=== PATIENT | male | born 1965 | race African-American/Black ===

== ENCOUNTER 2022-04-12 14:44 | Inpatient (IN) | payer MEDICAID, SELFPAY ==
[2022-04-12] VITALS (11 sets, daily range): BP systolic 135–159; BP diastolic 71–96; PULSE 91–101; RESP 15–22; TEMP 37; O2SAT 96–100; BMI 28.1
--- NOTE | 2022-04-12 14:45 | W.ED.EXTPRO ---
HPI - Extremity Problem General: Chief complaint: General Medical Stated complaint: RIGHT FOOT PAIN Time Seen by Provider: 04/12/22 14:45 History of Present Illness: Mr. Olivo is a 56-year-old gentleman with history of hypertension, possible diabetes not on any medications presenting to the emergency department due to bilateral lower extremity pain. Reports a longstanding history of lower extremity pain after leg fracture however this has been significantly worsening over the past 2 weeks. Symptoms are now severe and stabbing/aching in quality. Worse with ambulation and he has essentially been unable to ambulate. He notes increased thirst and increased hunger as well as increased urination. No other specific changes in health, exacerbating, or alleviating factors identified. Onset (ago): week(s) Location: left, right and lower extremity Severity scale (1-10): 10 Quality: stabbing and aching Radiation: proximal Relieving factors: nothing Exacerbating factors: weight bearing, walking and palpation Associated symptoms: Reports arthralgias and myalgias Review of Systems General: Reports: 10 or more systems reviewed and unremarkable except in HPI and below PFSH ED PFSH: Medical History Diabetes HTN (hypertension) Methamphetamine use Open tibial fracture Smoking Surgical History History of surgery on lower extremity Family History Other Crohn's disease Diabetes Social History Smoking and tobacco status: current every day smoker cigarettes Alcohol intake: current Alcohol intake frequency: holidays/special occasions only Lives independently: Yes Household members: none Marital status: 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 Physical Exam Const: COMMON NORMALS: alert GENERAL APPEARANCE: cooperative, well developed and ill appearing (Somewhat) HENMT: COMMON NORMALS: normocephalic and atraumatic HEAD & SCALP: normocephalic and atraumatic Eye: COMMON NORMALS: conjunctivae normal CONJUNCTIVA: Yes conjunctivae normal SCLERA: sclerae normal Neck/C-Spine: COMMON NORMALS: supple GENERAL: Yes trachea midline Resp: COMMON NORMALS: clear to auscultation bilaterally EFFORT & INSPECTION: Yes able to speak in complete sentences AUSCULTATION: clear to auscultation bilaterally Cardio: COMMON NORMALS: regular rate and regular rhythm RATE: regular rate RHYTHM: regular rhythm GI: COMMON NORMALS: Soft to palpation PALPATION: Yes Soft to palpation and No Tenderness to palpation present (GI) Extremity: NARRATIVE EXTREMITY EXAM: Significant tenderness to palpation of bilateral feet GENERAL: Yes normal exam except as noted and No edema Neuro: COMMON NORMALS: moves all extremities SENSORIUM/ORIENTATION: Yes alert and No Orientation impaired Psych: COMMON NORMALS: mental status grossly normal and Normal thought process present THOUGHT PROCESS: Normal thought process present Skin: NARRATIVE SKIN EXAM: Erythema and rash bilateral lower extremities worse on left. No evidence blistering or vascular lesions. Course Vital Signs: Vital signs: Vital Signs Temperature 98.2 F 04/14/22 13:49 Pulse Rate 85 04/14/22 13:49 Respiratory Rate 17 04/14/22 13:49 Blood Pressure 132/73 04/14/22 13:49 Pulse Oximetry 95 04/14/22 13:49 Oxygen Delivery Me thod 04/14/22 04:00 MDM - Extremity (Nontraumatic) Medical Decision Making 56-year-old gentleman presenting to the emergency department due to bilateral foot pain. There is evidence of cellulitis on exam. Patient himself is a somewhat poor historian. Labs notable for leukocytosis, normal hemoglobin. Metabolic panel with some evidence of dehydration and hyperglycemia evidence of DKA. Transaminitis of unclear etiology. Bilateral lower extremity arterial studies negative for significant stenosis. X-rays negative for acute fracture. During ED course patient treated with analgesia, fluids, broad-spectrum antibiotics, potassium replenishment Likely etiology of patient symptoms is soft tissue infection requiring inpatient management. The results of ED evaluation were discussed with the patient including plan for admission due to requirement for level of care not available if discharged to prevent significant worsening/deterioration. Patient agreeable with plan. Discussed with hospitalist service who was agreeable to admit patient. Medical Records I reviewed the patient's medical records. Lab Data I reviewed the patient's lab results. 04/14/22 04:20 04/14/22 04:20 Radiology Impressions Duplex Scan Lower Extremity Artery 04/12/22 15:26 IMPRESSION: No stenosis or occlusion. Tibia/Fibula X-Ray 04/12/22 17:42 IMPRESSION: No acute findings. Foot MRI 04/13/22 09:00 IMPRESSION: No acute osteomyelitis or soft tissue abscess. Somewhat limited exam as described. Lower Extremity CT 04/13/22 13:35 IMPRESSION: 1. Prepatellar soft tissue edema/haziness and a tiny discrete superficial soft tissue fluid collection/possible abscess at the anterolateral proximal tibial region as described. No other obvious soft tissue abscess or soft tissue gas. 2. Tibial IM arturo with artifacts partially obscuring assessment. There is minimal uniform lucency around the uncemented hardware which may be within normal limits however please see discussion above. No other obvious acute osseous findings or CT evidence of acute osteomyelitis. 3. Small knee joint effusion. Foot X-Ray 04/14/22 07:52 IMPRESSION: No acute abnormality. Laboratory Results WBC 19.9 10^3/uL (4.0-10.0) H 04/12/22 14:23 RBC 4.48 10^6/uL (4.1-5.3) 04/12/22 14:23 Hgb 14.1 g/dL (11.7-16.6) 04/12/22 14:23 Hct 39.9 % (42.0-52.0) L 04/12/22 14:23 MCV 89.1 fl (80-94) 04/12/22 14:23 MCH 31.5 pg (28.0-34.0) 04/12/22 14:23 MCHC 35.3 g/dL (30.0-36.0) 04/12/22 14:23 RDW 11.2 % (12.1-15.1) L 04/12/22 14:23 Plt Count 267 10^3/cmm (130-400) 04/12/22 14:23 MPV 12.0 fL (7.4-10.4) H 04/12/22 14:23 Neut % (Auto) 78.3 % 04/12/22 14:23 Lymph % (Auto) 12.3 % 04/12/22 14:23 Jennings % (Auto) 7.8 % 04/12/22 14:23 Eos % (Auto) 0.1 % 04/12/22 14:23 Baso % (Auto) 0.2 % 04/12/22 14:23 Neut # (Auto) 15.56 10^3/uL (1.8-7.7) H 04/12/22 14:23 Lymph # (Auto) 2.5 10^3/uL (0.8-4.8) 04/12/22 14:23 Jennings # (Auto) 1.6 10^3/uL (0.2-0.9) H 04/12/22 14:23 Eos # (Auto) 0.0 10^3/uL (0.0-0.8) 04/12/22 14:23 Baso # (Auto) 0.0 10^3/uL (0.0-0.1) 04/12/22 14:23 Nucleated RBC % (auto) 0 % 04/12/22 14:23 Nucleated RBCs # 0.0 /100WBC 04/12/22 14:23 Specimen Type Arterial 04/12/22 15:12 Sample Site Radial, left 04/12/22 15:12 ABG pH 7.50 (7.35-7.45) H 04/12/22 15:12 ABG pCO2 39.6 mmHg (35-45) 04/12/22 15:12 ABG pO2 63.4 mmHg (80.0-100.0) L 04/12/22 15:12 ABG HCO3 30.7 mmol/L (22-26) H 04/12/22 15:12 ABG O2 Saturation 94.2 04/12/22 15:12 ABG Base Excess 6.9 mmol/L (-2.0-2.0) H 04/12/22 15:12 Frandy Test Pos 04/12/22 15:12 A-a O2 Gradient 4.9 mmHg (5-10) L 04/12/22 15:12 Hematocrit 42.5 % (42-52) 04/12/22 15:12 Hgb O2 Saturation 92.0 % (95-100) L 04/12/22 15:12 Carboxyhemoglobin 1.8 %THgb (0.4-20.1) 04/12/22 15:12 Methemoglobin 0.4 % (0.4-1.5) 04/12/22 15:12 Total Hemoglobin 13.9 g/dL (14-18) L 04/12/22 15:12 Sodium 132.0 mmol/L (131-143) 04/12/22 15:12 Potassium 3.1 mmol/L (3.5-5.0) L 04/12/22 15:12 Glucose 309.0 mg/dL (70-115) H 04/12/22 15:12 Ionized Calcium 1.1 mmol/L (1.1-1.4) 04/12/22 15:12 O2 Delivery Device Room air 04/12/22 15:12 FiO2 21.0 % 04/12/22 15:12 Tripe Cooker ID Sunny 04/12/22 15:12 Sodium 130 mmol/L (136-145) L 04/12/22 14:23 Potassium 3.3 mmol/L (3.5-5.1) L 04/12/22 14:23 Chloride 91 mmol/L (98-107) L 04/12/22 14:23 Carbon Dioxide 29 mmol/L (22-29) 04/12/22 14:23 Anion Gap 13.3 (5-19) 04/12/22 14:23 BUN 11 mg/dL (6-20) 04/12/22 14:23 Creatinine 0.7 mg/dL (0.7-1.2) 04/12/22 14:23 GFR Calculation 140.2 mL/min (90-130) H 04/12/22 14:23 Glucose 331 mg/dL (65-115) H 04/12/22 14:23 POC Glucose > 600 mg/dL (70-110) H* 04/12/22 15:02 Calculated Osmolality 282 mOsm/kg (285-295) L 04/12/22 14:23 Lactate 1.2 mmol/L (0.5-2.2) 04/12/22 15:08 Calcium 8.8 mg/dL (8.5-10.5) 04/12/22 14:23 Phosphorus 2.4 mg/dL (2.5-4.5) L 04/12/22 14:25 Magnesium 1.8 mg/dL (1.7-2.3) 04/12/22 14:25 Total Bilirubin 0.5 mg/dL (0.15-1.2) 04/12/22 14:23 AST 59 U/L (0-40) H 04/12/22 14:23 ALT 44 U/L (0-41) H 04/12/22 14:23 Alkaline Phosphatase 178 U/L (40-130) H 04/12/22 14:23 Total Protein 7.8 g/dL (6.6-8.7) 04/12/22 14:23 Albumin 2.9 g/dL (3.5-5.2) L 04/12/22 14:23 Globulin 4.9 g/dL (1.3-4.6) H 04/12/22 14:23 Serum Ketones Negative (Negative) 04/12/22 14:23 Discharge Plan Discharge Patient Disposition: Placed in Observation Admit Provider: Juan M Muñoz Clinical Impression: Diabetic foot infection, Hyperglycemia, Electrolyte disturbance, Bilateral foot pain Coding Level of Care Code ED Wet Process [place] for Yannick Duenas
[2022-04-12 15:09] LABS: Glucose Point of Care > 600 mg/dL (70-110)
[2022-04-12] MEDS: morphine 4 mg/mL SDV 1 mL IVP (15:10)
[2022-04-12 15:13] LABS: Ketone (Acetest) Serum Negative (Negative)
[2022-04-12 15:24] LABS: Alanine Aminotransferase 44 U/L (0-41); Albumin Level 2.9 g/dL (3.5-5.2); Alkaline Phosphatase 178 U/L (40-130); Anion Gap 13.3 (5-19); Aspartate Amino Transferase 59 U/L (0-40); Basophils % 0.2 %; Blood Urea Nitrogen 11 mg/dL (6-20); Calcium 8.8 mg/dL (8.5-10.5); Carbon Dioxide 29 mmol/L (22-29); Chloride 91 mmol/L (98-107); Eosinophils % 0.1 %; Globulin 4.9 g/dL (1.3-4.6); Glomerular Filtration Rate 140.2 mL/min (90-130); Glucose 331 mg/dL (65-115); Hematocrit 39.9 % (42.0-52.0); Hemoglobin 14.1 g/dL (11.7-16.6); Lymphocytes # 2.5 10^3/uL (0.8-4.8); Lymphocytes % 12.3 %; Mean Corpuscular HGB Conc 35.3 g/dL (30.0-36.0); Mean Corpuscular Hemoglobin 31.5 pg (28.0-34.0); Mean Corpuscular Volume 89.1 fl (80-94); Monocytes # 1.6 10^3/uL (0.2-0.9); Monocytes % 7.8 %; Neutrophils # 15.56 10^3/uL (1.8-7.7); Neutrophils % 78.3 %; Nucleated Red Blood Cells % 0 %; Osmolality Calculated 282 mOsm/kg (285-295); Platelet Count 267 10^3/cmm (130-400); Potassium 3.3 mmol/L (3.5-5.1); Red Blood Count 4.48 10^6/uL (4.1-5.3); Red Cell Distribution Width 11.2 % (12.1-15.1); Sodium 130 mmol/L (136-145); Total Bilirubin 0.5 mg/dL (0.15-1.2); Total Protein 7.8 g/dL (6.6-8.7); White Blood Count 19.9 10^3/uL (4.0-10.0)
[2022-04-12 15:26] LABS: ABG PCO2 39.6 mmHg (35-45); Alveolar-Arterial Oxygen Gradi 4.9 mmHg (5-10); Arterial Blood Gas Hematocrit 42.5 % (42-52); Base Excess ABG 6.9 mmol/L (-2.0-2.0); Blood Gas Allen Test Pos; Blood Gas Operator Identificat MONRO; Blood Gas Sample Site Radial, left; Blood Gas Sample Type Arterial; Carboxyhemoglobin 1.8 %THgb (0.4-20.1); HCO3 ABG 30.7 mmol/L (22-26); Ionized Calcium Level - ABG 1.1 mmol/L (1.1-1.4); Methemoglobin 0.4 % (0.4-1.5); Oxygen Device ROOM AIR; Oxygen Saturation ABG 94.2; PO2 ABG 63.4 mmHg (80.0-100.0); Potassium Level - ABG 3.1 mmol/L (3.5-5.0); Total Hemoglobin 13.9 g/dL (14-18)
--- NOTE | 2022-04-12 15:26 | USR_ITS ---
PROCEDURE INFORMATION: Exam: US Duplex Lower Extremity Arteries Exam date and time: 04/12/2022 3:41 PM Age: 56 years old Clinical indication: Pain; Leg, lower; Bilateral; Additional info: Bilat leg pain, unable to walk TECHNIQUE: Imaging protocol: Real-time ultrasound scan of the arteries of the bilateral lower extremities with 2-D chinchilla scale, color Doppler flow and spectral waveform analysis. Images documented and saved. COMPARISON: OT Tibia and Fibula LEFT [id number] 10/29/2018 8:48 AM FINDINGS: Right common femoral artery: No occlusion or significant stenosis. Normal waveform. Right superficial femoral artery: No occlusion or significant stenosis. Normal waveform. Right popliteal artery: No occlusion or significant stenosis. Normal waveform. Right calf/foot arteries: No occlusion or significant stenosis in the visualized arteries. Monophasic flow. Dorsalis pedis artery is patent. Left common femoral artery: No occlusion or significant stenosis. Normal waveform. Left superficial femoral artery: No occlusion or significant stenosis. Normal waveform. Left popliteal artery: No occlusion or significant stenosis. Normal waveform. Left calf/foot arteries: No occlusion or significant stenosis in the visualized arteries. Monophasic flow. Dorsalis pedis artery is patent. US/[place] [id number] IMPRESSION: No stenosis or occlusion.
[2022-04-12 15:27] LABS: Magnesium 1.8 mg/dL (1.7-2.3); Phosphorus 2.4 mg/dL (2.5-4.5)
[2022-04-12 15:33] LABS: Lactate (Lactic Acid level) 1.2 mmol/L (0.5-2.2)
--- NOTE | 2022-04-12 16:43 | XRR_ITS ---
PROCEDURE INFORMATION: Exam: XR Left Foot Exam date and time: 04/12/2022 5:07 PM Age: 56 years old Clinical indication: Pain; Foot; Bilateral; Additional info: Foot pain TECHNIQUE: Imaging protocol: Radiologic exam of the Left foot. Views: 3 or more views. COMPARISON: CR XR tibia fibula LT 2V [id number] 10/29/2018 1:27 AM FINDINGS: Bones/joints: Osseous structures are intact. Negative for fracture. Joint spaces are preserved. Soft tissues: Normal. XR/XR foot LT min 3V* [id number] IMPRESSION: No acute findings.
--- NOTE | 2022-04-12 16:43 | XRR_ITS ---
PROCEDURE INFORMATION: Exam: XR Right Foot Exam date and time: 04/12/2022 5:03 PM Age: 56 years old Clinical indication: Pain; Foot; Bilateral; Additional info: Foot pain TECHNIQUE: Imaging protocol: Radiologic exam of the Right foot. Views: 3 or more views. COMPARISON: [place] [id number] 04/12/2022 3:41 PM FINDINGS: Bones/joints: Osseous structures are intact. Negative for fracture. Joint spaces are preserved. Soft tissues: A few punctate and linear radiopaque foreign bodies measuring between 1 and 2 mm in size are seen the base of the great toe. XR/XR foot RT min 3V* [id number] IMPRESSION: 1. No acute osseous abnormalities. 2. A few punctate and linear radiopaque foreign bodies measuring between 1 and 2 mm in size are seen at the base of the great toe.
[2022-04-12] MEDS: sodium chloride 0.9% 1,000 ML 999 ML IV (16:48)
[2022-04-12] MEDS: piperacillin-tazobactam 4.5 GM in sodium chloride 0.9% (plus) 50 ML IV (16:48)
[2022-04-12] MEDS: potassium chloride ER 20 mEq Tablet 40 MEQ PO (16:49)
--- NOTE | 2022-04-12 17:42 | XRR_ITS ---
PROCEDURE INFORMATION: Exam: XR Left Tibia and Fibula Exam date and time: 04/12/2022 5:50 PM Age: 56 years old Clinical indication: Other: Wounds; Prior surgery; Additional info: HX surgery, wounds TECHNIQUE: Imaging protocol: Radiologic exam of the Left tibia and fibula. Views: 2 views. COMPARISON: CR XR tibia fibula LT 2V [id number] 10/29/2018 1:27 AM FINDINGS: Bones/joints: Intact fixation ORIF hardware throughout the tibia. Osseous structures are intact. Sequela of prior callused mid tibial fracture. No acute fracture or irregular osseous erosions. Soft tissues: Normal. XR/XR tibia fibula LT 2V [id number] IMPRESSION: No acute findings.
[2022-04-12 18:09] LABS: Glucose Point of Care 358 mg/dL (70-110)
--- NOTE | 2022-04-12 18:09 | P.HP_ITS ---
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 He has history of fracture of the left tibia and ORIF with a arturo. Subsequently was bit on [place] property by a copperhead snake, did not seek medical attention. After that the wound did not heal and has been persistently draining now for over a year. In the ER he is also found to be hyperglycemic. He has history of diabetes. He does not take any medications. He states he does not have a family doctor. He states that he loves sweets. Brother states that he frequently walks barefoot outside. Review of Systems Const: Denies: fever(s), chills, body aches or malaise Eyes: Denies: change in vision, eye discomfort or eye redness ENMT: Denies: throat pain, oral sores or ear or mastoid pain Card: Denies: chest pain, edema, pre-syncope or dyspnea on exertion Resp: Denies: dyspnea, productive cough, change in phlegm color or hemoptysis GI: Denies: abdominal pain, nausea, vomiting, diarrhea, constipation, hematochezia or melena : Denies: flank pain, difficulty urinating, urinary frequency or hematuria Musc: Reports: extremity pain; Denies: back pain, joint swelling or joint redness Skin/Breast: Reports: erythema, skin tenderness and non-healing lesions Neuro: Denies: headache(s), numbness in extremities, weakness in extremities, dizziness, confusion or seizure-like activity Endo: Denies: polyuria or polydipsia Boy/Lymph: Denies: easy bleeding or tender lymph nodes All/Imm: Denies: urticaria or tongue swelling Medications/Allergies Allergies Allergy/AdvReac Type Severity Reaction Status Date / Time No Known Allergies Allergy Verified 04/12/22 15:11 PFSH Acute PFSH: Medical History Diabetes HTN (hypertension) Methamphetamine use Open tibial fracture Smoking Surgical History History of surgery on lower extremity Family History Other Crohn's disease Diabetes Social History Smoking and tobacco status: current every day smoker cigarettes Number of ci garettes per day: 1-5 Alcohol intake: current Alcohol intake frequency: holidays/special occasions only Substance/Drug Use: current Substance/Drug use type: Marijuana and Methamphetamine Lives independently: Yes Household members: none Marital status: 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 Const: COMMON NORMALS: patient oriented x3 and alert GENERAL APPEARANCE: cooperative and disheveled; not comfortable ORIENTATION/CONSCIOUSNESS: Yes awake HENMT: COMMON NORMALS: oropharynx normal Neck/C-Spine: COMMON NORMALS: no JVD Resp: COMMON NORMALS: normal respiratory effort and clear to auscultation bilaterally AUSCULTATION: clear to auscultation bilaterally Cardio: COMMON NORMALS: no JVD, regular rhythm, S1 normal heart sound present, S2 normal heart sound present and No murmurs present (Cardio) RHYTHM: regular rhythm HEART SOUNDS: S1 normal heart sound present and S2 normal heart sound present GI: COMMON NORMALS: Normal to inspection, nondistended, normoactive bowel sounds present, Soft to palpation and non-tender PALPATION: Yes Soft to palpation Extremity: COMMON NORMALS: no joint enlargement OTHER: Erythema, tenderness to palpation dorsal right foot, no wounds or ulceration. Neuro: COMMON NORMALS: patient oriented x3 and moves all extremities SENSORIUM/ORIENTATION: Yes alert Skin: GENERAL SKIN EXAM: erythema (Dorsal right foot) WOUNDS: Yes wounds noted (Ulceration, surrounding induration proximal and anteromedial left tibia ) drainage purulent Sepsis: Is patient septic: Yes Focused sepsis exam performed: Yes Data 04/12/22 14:23 04/12/22 14:23 Micro: Microbiology 04/12/22 15:04 Blood Culture - Preliminary Blood SPECIMEN COLLECTED 04/12/22 15:08 Blood Culture - Preliminary Blood SPECIMEN COLLECTED A&P Assessment and plan (1) Sepsis: With leukocytosis 19.9, sinus tachycardia at 98. At home fever 102 Fahrenheit. Blood cultures collected. Lactic acid normal. Received Zosyn, vancomycin, continue antibiotics. Source likely cellulitis in the right foot. Does also appear to have chronic infection, suspect osteomyelitis and/or orthopedic hardware infection in the proximal left tibia which may have gotten infected after a copperhead bite about a year ago. (2) Cellulitis of foot, right: Tender to touch. Dorsal foot cellulitis. No ulceration. No wound. Possibility of deeper infection not excluded given nonhealing wound draining purulent drainage for close to about a year in the proximal left tibia at the site of past fracture, orthopedic hardware, and subsequently copperhead snake bite. Possibility of systemic dissemination. Continue Zosyn, vancomycin. We will add clindamycin for now empirically. Podiatry consultation. Imaging with MRI. Right foot x-ray: A few punctate and linear radiopaque foreign bodies measuring between 1 and 2 mm in size are seen at the base of the great toe. (3) Non-healing wound of left lower extremity: Nonhealing wound draining purulent drainage for close to about a year in the proximal left tibia at the site of past fracture, orthopedic hardware, and subsequently copperhead snake bite a year ago. Assess with MRI. Blood cultures collected. Collect CRP, ESR. Depending on findings likely will also need orthopedic assessment. Arterial duplex bilaterally without stenosis or occlusion. (4) Orthopedic hardware present: Open left tibial fracture in 2019. (5) DM type 2 (diabetes mellitus, type 2): Untreated diabetes. States that he loves sweets as well. Discussed with him he will need medication otherwise diabetes will not allow for his wounds to heal, and he will also develop other complications. He states he will agree to taking medications. (6) Methamphetamine use: Has history of methamphetamine use, but does not admit to it in the presence of his brother and neighbor. Has admitted to it in the past. Monitor for withdrawal. Reportedly smokes, does not inject. (7) Smoking: Encourage cessation. Nicotine replacement. (8) Hypokalemia: Received replacement check magnesium. (9) Hyponatremia: Mild hyponatremia. Reassess sodium. Do not limit sodium intake. Has received a fluid bolus. Does appear dehydrated. Likely hypovolemic. Plan Dehydration: LR 75 mL/h Hypertension: Monitor blood pressure. She does not take any medications. Wallace cooper will benefit from initiation of therapy. Attestations Medical Necessity Statement*: Admission of over 2 midnights anticipated for assessment of management of sepsis, cellulitis right foot, nonhealing wound with purulent drainage at site of prior fracture, orthopedic hardware in left proximal tibia, in a gentleman with untreated diabetes. Coding Level of Care Code Acute Merchandising [facility] for [facility] Fwd Diagnoses Sepsis A41.9 Cellulitis of foot, right L03.115 Non-healing wound of left lower extremity S81.802A Orthopedic hardware present Z97.8 DM type 2 (diabetes mellitus, type 2) E11.9 Methamphetamine use F15.10 Smoking F17.200 Hypokalemia E87.6 Hyponatremia E87.1
[2022-04-12] MEDS: heparin 5,000 unit/mL INJ 1 mL 5000 UNIT SUBCUT (19:21)
[2022-04-12] MEDS: insulin glargine 100 units/1 mL 10 UNIT SUBCUT (19:21)
[2022-04-12] MEDS: lactated ringers 1,000 ML 75 ML IV (19:23)
[2022-04-12 20:32] LABS: Glucose Urine UA 4+ (Normal); Leukocyte Esterase Urine Negative (Negative); Protein Urine 2+ (Negative); Urine Appearance Clear (CLEAR); Urine Color Yellow (Yellow); Urobilinogen Urine 4+ mg/dL (Negative); pH Urine 7 (5-7)
[2022-04-12 20:33] LABS: Add Urine Microscopic? YES; Bilirubin Urine Neg (Negative); Blood Urine Neg (Negative); Ketones Urine Negative (Negative); Nitrate Urine Negative (Negative)
[2022-04-12 20:34] LABS: Add Urine Culture? No; RBC Urine 0-4 /hpf (0-2); WBC Urine 0-4 /hpf (0-5)
[2022-04-12 22:00] LABS: Glucose Point of Care 336 mg/dL (70-110)
[2022-04-12] MEDS: insulin lispro 100 unit/1 mL SUBCUT (22:08)
[2022-04-12] MEDS: clindamycin 300 MG/50 ML PREMIX 100 MG IV (23:53)
[2022-04-13] VITALS (13 sets, daily range): BP systolic 139–183; BP diastolic 64–97; PULSE 90–111; RESP 15–23; TEMP 36.7–38; O2SAT 90–98
[2022-04-13] MEDS: piperacillin-tazobactam 3.375 GM in sodium chloride 0.9% (plus) 50 ML IV ×3 (00:35→22:01)
[2022-04-13 02:18] LABS: Basophils % 0.2 %; Eosinophils % 0.2 %; Hematocrit 39.3 % (42.0-52.0); Hemoglobin 13.7 g/dL (11.7-16.6); Lymphocytes # 1.6 10^3/uL (0.8-4.8); Lymphocytes % 7.8 %; Mean Corpuscular HGB Conc 34.9 g/dL (30.0-36.0); Mean Corpuscular Hemoglobin 31.5 pg (28.0-34.0); Mean Corpuscular Volume 90.3 fl (80-94); Mean Platelet Volume 11.2 fL (7.4-10.4); Monocytes # 1.4 10^3/uL (0.2-0.9); Monocytes % 7.3 %; Neutrophils # 16.59 10^3/uL (1.8-7.7); Neutrophils % 83.4 %; Nucleated Red Blood Cells % 0 %; Platelet Count 319 10^3/cmm (130-400); Red Blood Count 4.35 10^6/uL (4.1-5.3); Red Cell Distribution Width 11.4 % (12.1-15.1); White Blood Count 19.9 10^3/uL (4.0-10.0)
[2022-04-13 02:52] LABS: Alanine Aminotransferase 40 U/L (0-41); Albumin Level 2.5 g/dL (3.5-5.2); Alkaline Phosphatase 165 U/L (40-130); Anion Gap 10.3 (5-19); Aspartate Amino Transferase 61 U/L (0-40); Blood Urea Nitrogen 10 mg/dL (6-20); Calcium 8.5 mg/dL (8.5-10.5); Carbon Dioxide 29 mmol/L (22-29); Chloride 95 mmol/L (98-107); Globulin 4.8 g/dL (1.3-4.6); Glomerular Filtration Rate 140.2 mL/min (90-130); Glucose 151 mg/dL (65-115); Magnesium 1.8 mg/dL (1.7-2.3); Osmolality Calculated 274 mOsm/kg (285-295); Potassium 3.3 mmol/L (3.5-5.1); Sodium 131 mmol/L (136-145); Total Bilirubin 0.7 mg/dL (0.15-1.2); Total Protein 7.3 g/dL (6.6-8.7)
[2022-04-13 02:59] LABS: Estmated Average Glucose 272; Hemoglobin A1C 11.1 % (4.0-6.0)
[2022-04-13] MEDS: vancomycin 1,500 MG/300 ML PIGGYBACK 200 MG IV ×2 (04:26→17:32)
[2022-04-13] MEDS: heparin 5,000 unit/mL INJ 1 mL 5000 UNIT SUBCUT ×2 (05:27→17:32)
[2022-04-13 06:22] LABS: Glucose Point of Care 253 mg/dL (70-110)
[2022-04-13] MEDS: clindamycin 300 MG/50 ML PREMIX 100 MG IV (07:37)
[2022-04-13] MEDS: insulin lispro 100 unit/1 mL SUBCUT ×4 (07:38→22:02)
--- NOTE | 2022-04-13 07:39 | PM.CONSULT ---
Providers/Reason For Consult Consulting Physician/Specialty*: Christos Kirkland D.P.M. Reason for Consult*: Right foot pain, left leg wound. Attending Physician: Kash Ruff MD History of Present Illness History of Present Illness Leroy Olivo is a 56 year old uncontrolled diabetic male presents to the emergency department with complaints of right foot pain and a chronic wound to the left leg. He reports a insidious onset of right foot redness, warmth and pain approximately 2 to 3 weeks ago. Denies any open wound, denies any puncture wound, he is unsure of the etiology. Patient also complains of a chronic draining wound to his left proximal leg. He reports a left tibial fracture that underwent surgical intervention in 2019 at this facility. Per his report there has been a draining wound that developed after his left leg surgery. Patient does not follow with a primary care physician. Patient denies any subjective nausea, vomiting, fever, chills, shortness of breath or chest pain. Review of Systems General: Reports: 10 or more systems reviewed and unremarkable except in HPI and below Const: Denies: fever(s) or chills Eyes: Denies: change in vision Card: Denies: chest pain or palpitations Resp: Denies: dyspnea or productive cough GI: Denies: abdominal pain, nausea or vomiting : Denies: flank pain Musc: Reports: extremity swelling, joint stiffness and deformity Skin/Breast: Reports: erythema, sores, changes in skin color, dry skin, nail changes and change in hair Neuro: Reports: numbness in extremities, sensory changes and difficulty walking Psych: Denies: suicidal ideation Endo: Denies: change in body appearance Boy/Lymph: Denies: tender lymph nodes Medications/Allergies Allergies Allergy/AdvReac Type Severity Reaction Status Date / Time No Known Allergies Allergy Verified 04/12/22 15:11 Current Medications Generic Name Dose Route Start Last Admin Trade Name Freq PRN Reason Stop Dose Admin Heparin Sodium (Porcine) 5,000 unit 04/12/22 18:15 04/13/22 05:27 Heparin 5,000 Unit/Ml Inj 1 Ml SUBCUT 5,000 unit Q12H STEPHANIE Administration Hydromorphone HCl 2 mg 04/12/22 18:22 04/13/22 02:45 Hydromorphone 4 Mg Tablet PO 2 mg Q6H PRN Administration SEVERE PAIN Piperacillin Sod/Tazobactam 50 mls @ 12.5 mls/hr 04/13/22 00:00 04/13/22 05:06 Sod 3.375 gm/ Sodium Chloride IV Infused Q8H STEPHANIE Infusion Protocol Lactated Ringer's 1,000 mls @ 75 mls/hr 04/12/22 18:45 04/12/22 19:23 Lactated Ringers IV 75 mls/hr .[id number] STEPHANIE Administration Vancomycin/PEG/NADA/Lysine/Water 1,500 mg in 300 mls @ 200 mls/hr 04/13/22 05:00 04/13/22 06:22 Vancocin IV Infused Q12H STEPHANIE Infusion Clindamycin HCl/Dextrose 300 mg in 50 mls @ 100 mls/hr 04/12/22 23:00 04/13/22 07:37 Cleocin IV 100 mls/hr Q8H STEPHANIE Administration Protocol Insulin Glargine 10 unit 04/12/22 18:09 04/12/22 19:21 Insulin Glargine 100 Units/1 Ml SUBCUT 10 unit BEDTIME STEPHANIE Administration Insulin Human Lispro 0 unit 04/12/22 21:00 04/13/22 07:38 Insulin Lispro 100 Unit/1 Ml SUBCUT 6 unit WM&BEDTIME STEPHANIE Administration Protocol PFSH Acute PFSH: Medical History Diabetes HTN (hypertension) Methamphetamine use Open tibial fracture Smoking Surgical History History of surgery on lower extremity Family History Other Crohn's disease Diabetes Social History Smoking and tobacco status: current every day smoker cigarettes Number of cigarettes per day: 1-5 Alcohol intake: current Alcohol intake frequency: holidays/special occasions only Substance/Drug Use: current Substance/Drug use type: Marijuana and Methamphetamine Lives independently: Yes Household members: none Marital status: 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 The following is a focused bilateral lower extremity exam. VASCULAR: Dorsalis pedis palpable +2 left and right foot. Posterior tibial arteries palpable. Capillary refill time less than 3 seconds to the distal hallux bilaterally. Calf is supple and nontender proximally and distally. Decreased pedal hair growth. No significant edema to the bilateral lower extremities. NEUROLOGICAL: Protective sensation intact to light touch to the bilateral lower extremity. DERMATOLOGICAL: Erythema and warmth to the dorsum of the right foot without wound. There is a transverse fissure at the plantar aspect of the right hallux without purulence or periwound erythema. Purulent drainage expressed from sinus tract left proximal leg. Dystrophic toenails 1 through 5 bilaterally. Dry cracking skin to the plantar feet bilaterally. No lymphangitic streaking bilaterally. MUSCULOSKELETAL: Pain to palpation at the right dorsal foot. Pain to palpation left leg wound. There is no soft tissue crepitus at the lower extremity integument. Data 04/13/22 02:02 04/13/22 02:02 Micro: Microbiology 04/12/22 15:04 Blood Culture - Preliminary Blood SPECIMEN COLLECTED 04/12/22 15:08 Blood Culture - Preliminary Blood SPECIMEN COLLECTED A&P Assessment and plan (1) Cellulitis of right foot: (2) Diabetic peripheral neuropathy associated with type 2 diabetes mellitus: (3) 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: Plan 56-year-old uncontrolled diabetic male, presents with cellulitis to the right foot, there is a transverse fissure at the plantar right hallux, no other source of infection or portal of entry to the right foot. Given the clinical appearance will require MRI, MRI is pending with and without contrast of the right foot. Recommend empiric IV antibiotics, will continue to monitor and await advanced imaging. In regards to his left leg, per his report there has been a draining wound following his left leg surgery in 2019. MRI of the left leg also pending. This would be out of my scope of practice should there be infected hardware at the left tibia. Coding Level of Care Code Acute Occupational Therapist Assistants for Yannick Duenas Diagnoses Cellulitis of right foot L03.115 Diabetic peripheral neuropathy associated with type 2 diabetes mellitus E11.42 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 L97.222
--- NOTE | 2022-04-13 09:00 | MRR_ITS ---
PROCEDURE INFORMATION: Exam: MR Right Lower Extremity Other Than Joint Without Contrast; Foot Exam date and time: 04/13/2022 4:16 PM Age: 56 years old Clinical indication: Pain; Foot; Right; Additional info: Assess for deep infection/om TECHNIQUE: Imaging protocol: Magnetic resonance imaging of the Right lower extremity without contrast. Exam focused on the foot. COMPARISON: CR (LOW EXM, ) 04/12/2022 5:03 PM FINDINGS: Bones and cartilage: Somewhat limited exam with only 4 routine sequences submitted in addition to localizer images. Multiple images are degraded by motion artifacts. Probable mild hallux valgus on this nonweightbearing exam. No significant bone marrow abnormality to suggest osseous injury or osteomyelitis. Probable tiny subchondral cysts in the proximal navicular suggesting early degenerative arthritic disease. Joint spaces: No significant joint effusion. LIGAMENTS: Lisfranc ligament: Unremarkable. No evidence of tear. TENDONS: Flexor tendons of foot: Unremarkable. No evidence of tear. Tibialis posterior tendon: Unremarkable as visualized. Peroneal tendons: Unremarkable as visualized. Extensor tendons of foot: Unremarkable. No evidence of tear. Tibialis anterior tendon: Unremarkable as visualized. Tarsal canal (Sinus tarsi): Unremarkable. Tarsal tunnel: Unremarkable. Soft tissues: [id number] diffuse dorsal subcutaneous soft tissue edema with no obvious large drainable abscess/fluid collection. No significant bone marrow abnormality to suggest acute osseous injury or osteomyelitis. Plantar fascia: Unremarkable as visualized. MR/MR foot RT wo con* [id number] IMPRESSION: No acute osteomyelitis or soft tissue abscess. Somewhat limited exam as described.
--- NOTE | 2022-04-13 10:49 | PC.CHAP ---
Pastoral Care Encounter/Spiritual Assessment Type of Contact [] Declined felt strip finisher visit [] Patient/Family/Request visit [] Outpatient visit [] Follow-up visit [] Physician referral [] Code/Alert [X] Routine visit [] Staff referral [] Actively dying [] Patient sleeping [] Family support [] [] Out of room [] Palliative care [] [] Receiving care in room [] Pre-surgical visit [] Trauma [] Long length of stay [] ICU visit [] Other: Relational/Emotional Strength [] Patient feels connected with others/family/visitors/staff [] Distress [] Loneliness/isolation [] Abandonment Spirituality of Patient [] Person of Moon [] Attends Latter Day of their Moon [] Believes in Prayer [] Reads Bible or Restorationist materials [] There are Spiritual issues to be addressed Certified Orthotist Practice Manager Interventions [X] Prayer [] Active listening [] Non-anxious presence [] Spiritual/emotional support [] Crisis/trauma care [] Spiritual counseling [] Bereavement support [] Provided bereavement packet [] Provided Bible/devotional materials [] Provided toy/stuffed animal, coloring book to patient or family member [] Provided Communion [] Anointing/[place] [] Salvation [] Completed spiritual assessment [] Other: Impact on Illness or Injury [] Angry [] Fearful [] Anxious [] Often cries [] Exhaustion [] Unable to work [] Unable to attend yarsanism [] Unable to walk/stand [] Unable to read [] Unable to drive [] Unable to eat/drink [] Unable to sleep [] Unable to be with family [] Patient intubated [] Other: Summary Time spent with patient
[2022-04-13 11:39] LABS: Glucose Point of Care 195 mg/dL (70-110)
--- NOTE | 2022-04-13 13:35 | USCV_ITS ---
Leroy Olivo Age: 56 Gender: M : 1965 Exam Date: 04/13/2022 15:14 Ordering Phys: Kash Ruff MD Technologist: Efraín Du Exam Location: [facility] [place] Indication: HTN BP: 170 / 64 HR: 124 Rhythm: Sinus Technical Quality: Adequate MEASUREMENTS (Male / Female) Normal Values 2D ECHO LV Diastolic Diameter PLAX 5.0 cm 4.2 - 5.9 / 3.9 - 5.3 cm LV Systolic Diameter PLAX 3.5 cm IVS Diastolic Thickness 0.9 cm 0.6 - 1.0 / 0.6 - 0.9 cm IVS Systolic Thickness 1.3 cm LVPW Diastolic Thickness 1.2 cm 0.6 - 1.0 / 0.6 - 0.9 cm LVPW Systolic Thickness 1.7 cm LVOT Diameter 2.0 cm LV Ejection Fraction 2D Teich 58.1 % LV Ejection Fraction MOD 2C 61.4 % LV Ejection Fraction 2C AL 62.5 % LA Diameter 3.2 cm LA Width 3.5 cm LA Height 4.3 cm RA Width 3.1 cm RA Height 4.4 cm Aorta at Sinotubular Diameter 2.4 cm IVC Diameter 1.8 cm M-MODE Aortic Annulus Diameter 2.8 cm LA Ao Ratio MM 1.2 MV E Point Septal Separation 0.8 cm DOPPLER AV Peak Velocity 164.3 cm/s LVOT Peak Velocity 109.0 cm/s AV Area Cont Eq vti 1.6 cm squared AV Area Cont Eq pk 2.1 cm squared MV Peak Velocity 116.0 cm/s MV Area PHT 4.4 cm squared Mitral E to A Ratio 0.8 MV E' Velocity 38.0 cm/s Mitral E to MV E' Ratio 5.5 Mitral E to LV E' Lateral Ratio 5.2 Mitral E to LV E' Septal Ratio 6.0 TR Peak Velocity 252.8 cm/s TR Peak Gradient 25.6 mmHg TR Mean Velocity 205.9 cm/s TR Mean Gradient 19.8 mmHg TR Velocity Time Integral 53.1 cm Right Atrial Pressure 3.0 mmHg Pulmonary Artery Systolic Pressu 28.6 mmHg PV Peak Velocity 140.0 cm/s RV Acceleration Time 0.1 s RV Ejection Time 0.3 s RV AcT/ET 0.3 FINDINGS Left Ventricle Normal left ventricular size and systolic function, EF 58 %. No regional wall motion abnormalities. Grade I/IV diastolic dysfunction (abnormal relaxation filling pattern), normal to mildly elevated filling pressures. Right Ventricle The right ventricle is normal in size and function. Right Atrium The right atrium is normal in size. Left Atrium The left atrium is normal in size. Mitral Valve Thickened mitral valve. Trace mitral valve regurgitation. Aortic Valve Thickened noncoronary cusp of the aortic valve. Tricuspid Valve Trace tricuspid valve regurgitation. Pulmonic Valve Structurally normal pulmonic valve. Pericardium Normal pericardium without effusion. Aorta Normal ascending aorta dimension. IVC The inferior vena cava appears normal. CONCLUSIONS Normal left ventricular size and systolic function, EF 58 %. No regional wall motion abnormalities. Grade I/IV diastolic dysfunction (abnormal relaxation filling pattern), normal to mildly elevated filling pressures. Thickened mitral valve. Trace mitral valve regurgitation. Thickened noncoronary cusp of the aortic valve. Trace tricuspid valve regurgitation. There is no pericardial effusion. There are no intracardiac masses. No similar previous studies are available for comparison Dr Yolette Snow MD [facility] (Electronically Signed) Final Date: 13 April 2022 20:57 S
--- NOTE | 2022-04-13 13:35 | CTR_ITS ---
PROCEDURE INFORMATION: Exam: CT Left Lower Extremity With Contrast; Lower Leg Exam date and time: 04/13/2022 4:54 PM Age: 56 years old Clinical indication: Pain; Lower leg; Left; Prior surgery; Additional info: Possible post op osteo TECHNIQUE: Imaging protocol: CT of the Left lower extremity with intravenous contrast was performed. Exam focused on the lower leg. Radiation optimization: All CT scans at this facility use at least one of these dose optimization techniques: automated exposure control; mA and/or kV adjustment per patient size (includes targeted exams where dose is matched to clinical indication); or iterative reconstruction. Contrast material: MONICA 350; Contrast volume: 100 ml; Contrast route: INTRAVENOUS (IV); COMPARISON: CR (LOW EXM, ) 04/12/2022 5:50 PM RADIATION DOSE METRICS: Total DLP (mGy-cm): 696.21 FINDINGS: Tubes, catheters and devices: Minimal uniform lucency around the noncemented IM arturo is seen throughout the tibial length, probably within normal limits however comparison/correlation with serial radiographic assessment may be helpful to exclude hardware loosening. Bones/joints: There is prepatellar soft tissue swelling and haziness suggesting edema/inflammatory response. Small knee joint effusion. There is a somewhat discrete fluid density intradermal/superficial subcutaneous tissue focus with partially enhancing rim at the anteromedial aspect of the tibia which may represent phlegmonous tissue or small developing abscess, measuring 7 by 6 by 11 mm, axial image 60 and sagittal image 55. There is orthopedic IM arturo within the tibia resulting in streak artifacts partially obscuring regional anatomy. Otherwise no acute fracture dislocation or obvious bony erosions. No suspicious acute periosteal thickening is identified. Chronic periosteal thickening/callus formation in the proximal tibia near the surgical hardware and at the mid tibial shaft fracture site is noted. Soft tissues: See Bones/joints finding. CT/CT lower leg LT w con [id number] IMPRESSION: 1. Prepatellar soft tissue edema/haziness and a tiny discrete superficial soft tissue fluid collection/possible abscess at the anterolateral proximal tibial region as described. No other obvious soft tissue abscess or soft tissue gas. 2. Tibial IM arturo with artifacts partially obscuring assessment. There is minimal uniform lucency around the uncemented hardware which may be within normal limits however please see discussion above. No other obvious acute osseous findings or CT evidence of acute osteomyelitis. 3. Small knee joint effusion.
[2022-04-13] MEDS: losartan 50 mg Tablet 25 MG PO (14:31)
[2022-04-13] MEDS: carvedilol 6.25 mg Tablet PO ×2 (14:31→22:03)
[2022-04-13] MEDS: sodium chlor 0.9% + KCl 20 mEq 20 MEQ/1,000 ML BAG 100 MEQ IV (14:32)
[2022-04-13 15:14] LABS: Procalcitonin 0.22 ng/mL (0-0.5); Thyroid Stimulating Hormone 1.02 uIU/mL (0.27-4.20); Vitamin B12 400 pg/mL (232-1245)
[2022-04-13 15:16] LABS: Folate Level 11.7 ng/mL (4.5-32.2)
[2022-04-13 15:32] LABS: C Reactive Protein 36.2 mg/L (0.0-4.9); Iron 25 ug/dL (59-158); Percent Saturation 15.3 % (20-50); Total Iron Binding Capacity 163 mcg/dl; Unsaturated Iron Binding 138 ug/dL (112-347)
--- NOTE | 2022-04-13 16:58 | P.PN_ITS ---
Subjective Subjective: Hospital course, labs appreciated. Laying comfortably in bed. Complaining of pain in his legs. Thinks he is dying because of the pain. States he usually uses marijuana for recreational drugs. Sometimes he uses methamphetamines as well with last use over couple of weeks ago. Does not give any other recreational drugs. Vitals/I&O/Wt Last Vital Signs Temp 98.3 F 04/13/22 15:45 Pulse 93 04/13/22 15:45 Resp 15 04/13/22 15:45 BP 150/79 04/13/22 15:45 Pulse Ox 94 04/13/22 15:45 O2 Del Method 04/13/22 15:45 04/13/22 04/13/22 04/13/22 06:59 14:59 22:59 Intake Total 760 / 812 3130 / 3130 Output Total 300 / 900 Balance 460 / -88 3130 / 3130 Weight last 48 hrs Weight 74.446 kg Weight 81.647 kg Physical Exam Const: COMMON NORMALS: patient oriented x3 and alert GENERAL APPEARANCE: cooperative and disheveled; not comfortable ORIENTATION/CONSCIOUSNESS: Yes awake HENMT: COMMON NORMALS: oropharynx normal Neck/C-Spine: COMMON NORMALS: no JVD Resp: COMMON NORMALS: normal respiratory effort and clear to auscultation bilaterally AUSCULTATION: clear to auscultation bilaterally Cardio: COMMON NORMALS: no JVD, regular rhythm, S1 normal heart sound present, S2 normal heart sound present and No murmurs present (Cardio) RHYTHM: regular rhythm HEART SOUNDS: S1 normal heart sound present and S2 normal heart sound present GI: COMMON NORMALS: Normal to inspection, nondistended, normoactive bowel sounds present, Soft to palpation and non-tender PALPATION: Yes Soft to palpation Extremity: COMMON NORMALS: no joint enlargement OTHER: Erythema, tenderness to palpation dorsal right foot, no wounds or ulceration. Neuro: COMMON NORMALS: patient oriented x3 and moves all extremities SENSORIUM/ORIENTATION: Yes alert Skin: GENERAL SKIN EXAM: erythema (Dorsal right foot) WOUNDS: Yes wounds noted (Ulceration, surrounding induration proximal and anteromedial left tibia ) drainage purulent Data 04/13/22 02:02 04/13/22 02:02 Micro: Microbiology 04/12/22 15:04 Blood Culture - Preliminary Blood NEGATIVE TO DATE 04/12/22 15:08 Blood Culture - Preliminary Blood NEGATIVE TO DATE 04/12/22 20:15 Gram Stain - Final Leg - #1 A&P Assessment and plan (1) Sepsis: With leukocytosis 19.9, tachycardia without endorgan damage secondary to cellulitis/osteomyelitis of right foot, hardware infection of left leg. Follow-up blood cultures. Continue with vancomycin and Zosyn. Check MRSA swab, urine Legionella, bacterial antigen. Source likely cellulitis in the right foot. Does also appear to have chronic infection, suspect osteomyelitis and/or orthopedic hardware infection in the proximal left tibia which may have gotten infected after a copperhead bite about a year ago. (2) Cellulitis of foot, right: Awaiting MRI. Appreciate podiatry recommendations. Continue with empiric antibiotics. (3) Non-healing wound of left lower extremity: Nonhealing wound draining purulent drainage for close to about a year in the proximal left tibia at the site of past fracture, orthopedic hardware, and subsequently copperhead snake bite a year ago. Cannot get MRI given hardware presence which would cause error in the read as per highway traffic control technician. Will order CT lower leg with contrast to rule out hardware infection. Will consult orthopedics accordingly. Check CRP. Follow-up culture results. Antibiotics as above. Wound care. Arterial duplex bilaterally without stenosis or occlusion. (4) Orthopedic hardware present: Open left tibial fracture in 2019. (5) DM type 2 (diabetes mellitus, type 2): Untreated diabetes. Noncompliant patient. Insulin sliding scale at moderate dose protocol. Continue with Lantus 10 units at bedtime. A1c 11.1. He is agreeable to take medications now. Will most likely discharge him on insulin. (6) HTN (hypertension): Goal blood pressure less than 140/90 mmHg. Start on carvedilol 6.25 mg twice daily, losartan 25 mg daily. Check echocardiogram. Will uptitrate as per goals. (7) 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: (8) Diabetic peripheral neuropathy associated with type 2 diabetes mellitus: (9) Cellulitis of right foot: (10) Hypokalemia: Received replacement check magnesium. (11) Hyponatremia: Mild hyponatremia. Reassess sodium. Do not limit sodium intake. Switch to normal saline at 75 cc/h. (12) Methamphetamine use: Has history of methamphetamine use, agrees to meth abuse today. Last more than couple of weeks ago. Drug screen added to UA from yesterday. Monitor for withdrawal. Check HIV, hepatitis panel (13) Smoking: Encourage cessation. Nicotine replacement. Plan Full code. Carb consistent diet. 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
[2022-04-13] MEDS: iohexol 350 mg/mL 500 mL Btl (per mL) IV (17:15)
[2022-04-13 17:18] LABS: Amphetamines Screen Urine Positive (Negative); Barbiturates Screen Urine Negative (Negative); Benzodiazepines Screen Urine Negative (Negative); Cocaine Screen Urine Negative (Negative); Opiate Screen Urine Positive (Negative); PCP Screen Urine Negative (Negative); THC Screen Urine Positive (Negative)
[2022-04-13 17:18] LABS: Glucose Point of Care 231 mg/dL (70-110)
[2022-04-13] MEDS: ferrous gluconate 324 mg Tablet PO (17:32)
[2022-04-13 17:50] LABS: Hepatitis A Antibody IgM Non-Reactive (Nonreactive); Hepatitis B Core AB, Total Non-Reactive (Nonreactive); Hepatitis B Surface AB 5.4 (11.5-1000); Hepatitis B Surface Antigen Non-Reactive (Nonreactive); Hepatitis C Virus Antibody Reactive (Nonreactive)
[2022-04-13 19:17] LABS: HIV 1 & 2 Antibody Non-Reactive (Non-Reactiv); HIV 1 & 2 Antigen Non-Reactive (Non-Reactiv)
[2022-04-13] MEDS: acetaminophen 325 mg Tablet 650 MG PO (19:59)
[2022-04-13 21:23] LABS: Glucose Point of Care 151 mg/dL (70-110)
[2022-04-13] MEDS: insulin glargine 100 units/1 mL 10 UNIT SUBCUT (22:01)
[2022-04-14] VITALS (7 sets, daily range): BP systolic 118–153; BP diastolic 66–90; PULSE 78–88; RESP 15–17; TEMP 36.8–37.4; O2SAT 91–96
[2022-04-14 04:31] LABS: Basophils # 0.1 10^3/uL (0.0-0.1); Basophils % 0.2 %; Eosinophils # 0.1 10^3/uL (0.0-0.8); Eosinophils % 0.5 %; Hematocrit 36.1 % (42.0-52.0); Hemoglobin 12.6 g/dL (11.7-16.6); Lymphocytes # 2.9 10^3/uL (0.8-4.8); Lymphocytes % 13.4 %; Mean Corpuscular HGB Conc 34.9 g/dL (30.0-36.0); Mean Corpuscular Hemoglobin 31.6 pg (28.0-34.0); Mean Corpuscular Volume 90.5 fl (80-94); Monocytes # 1.6 10^3/uL (0.2-0.9); Monocytes % 7.4 %; Neutrophils # 16.66 10^3/uL (1.8-7.7); Neutrophils % 77.5 %; Nucleated Red Blood Cells % 0 %; Platelet Count 303 10^3/cmm (130-400); Red Blood Count 3.99 10^6/uL (4.1-5.3); Red Cell Distribution Width 11.4 % (12.1-15.1); White Blood Count 21.5 10^3/uL (4.0-10.0)
[2022-04-14 04:47] LABS: Vancomycin Trough 12.4 ug/mL (10-15)
[2022-04-14] MEDS: acetaminophen 325 mg Tablet 650 MG PO (04:48)
[2022-04-14] MEDS: vancomycin 1,500 MG/300 ML PIGGYBACK 200 MG IV (04:49)
[2022-04-14 04:57] LABS: Alanine Aminotransferase 35 U/L (0-41); Albumin Level 2.2 g/dL (3.5-5.2); Alkaline Phosphatase 168 U/L (40-130); Anion Gap 11.7 (5-19); Aspartate Amino Transferase 50 U/L (0-40); Blood Urea Nitrogen 11 mg/dL (6-20); Calcium 8.4 mg/dL (8.5-10.5); Carbon Dioxide 24 mmol/L (22-29); Chloride 102 mmol/L (98-107); Cholesterol 122 mg/dL (0-200); Globulin 4.6 g/dL (1.3-4.6); Glomerular Filtration Rate 206.7 mL/min (90-130); Glucose 197 mg/dL (65-115); HDL Cholesterol 37 mg/dL (60-100); LDL Cholesterol Calculated 71 mg/dL (50-129); Osmolality Calculated 283 mOsm/kg (285-295); Potassium 3.7 mmol/L (3.5-5.1); Sodium 134 mmol/L (136-145); Total Bilirubin 0.6 mg/dL (0.15-1.2); Total Protein 6.8 g/dL (6.6-8.7); Triglycerides 72 mg/dL (0-150); VLDL Cholestrol Calculation 14 mg/dL (0-30)
[2022-04-14] MEDS: heparin 5,000 unit/mL INJ 1 mL 5000 UNIT SUBCUT (04:58)
--- NOTE | 2022-04-14 06:20 | P.PN_ITS ---
Subjective Subjective: Patient seen bedside this morning. Denies any acute events overnight. Still endorses pain to his right foot. Persistent leukocytosis. Patient denies any subjective nausea, vomiting, fever, chills, shortness of breath or chest pain. Vitals/I&O/Wt Last Vital Signs Temp 99.3 F 04/14/22 04:00 Pulse 88 04/14/22 04:00 Resp 16 04/14/22 04:00 BP 153/90 04/14/22 04:00 Pulse Ox 93 04/14/22 04:00 O2 Del Method 04/14/22 04:00 04/13/22 04/13/22 04/14/22 14:59 22:59 06:59 Intake Total 3130 / 3130 620 / 3750 350 / 4100 Output Total 500 / 500 250 / 750 Balance 3130 / 3130 120 / 3250 100 / 3350 Weight last 48 hrs Weight 162 lb 2 oz Weight 164 lb 2 oz Weight 180 lb Physical Exam Narrative: GENERAL: Patient is alert and oriented ?3 and in no acute distress. The following is a focused bilateral lower extremity exam. VASCULAR: Dorsalis pedis palpable +2 left and right foot. Posterior tibial arteries palpable. Capillary refill time less than 3 seconds to the distal hallux bilaterally. Calf is supple and nontender proximally and distally. Decreased pedal hair growth. No significant edema to the bilateral lower extremities. NEUROLOGICAL: Protective sensation intact to light touch to the bilateral lower extremity. DERMATOLOGICAL: Erythema and warmth to the dorsum of the right foot without wound. There is a transverse fissure at the plantar aspect of the right hallux without purulence or periwound erythema. Purulent drainage expressed from sinus tract left proximal leg. Dystrophic toenails 1 through 5 bilaterally. Dry cracking skin to the plantar feet bilaterally. No lymphangitic streaking bilaterally. MUSCULOSKELETAL: Pain to palpation at the right dorsal foot. Pain to palpation left leg wound. There is no soft tissue crepitus at the lower extremity integument. Data 04/14/22 04:20 04/14/22 04:20 Micro: Microbiology 04/12/22 19:25 Legionella Urinary Antigen - Final Unknown Source 04/12/22 15:04 Blood Culture - Preliminary Blood NEGATIVE TO DATE 04/12/22 15:08 Blood Culture - Preliminary Blood NEGATIVE TO DATE 04/12/22 20:15 Gram Stain - Final Leg - #1 Other data: Patient: Leroy Olivo Unit #: [id number] : 1965 Age/Sex: 56 / M ADM Date: 04/12/22 Loc: [facility] Room/Bed: 261-[address]: Kash Ruff MD Ordering Provider/Ordering MD: Juan M Muñoz MD Date of Service: 04/13/22 Procedure(s): MR foot RT wo con* [id number] Accession Number(s): [id number] Report Number: [id number] PROCEDURE INFORMATION: Exam: MR Right Lower Extremity Other Than Joint Without Contrast; Foot Exam date and time: 04/13/2022 4:16 PM Age: 56 years old Clinical indication: Pain; Foot; Right; Additional info: Assess for deep infection/om TECHNIQUE: Imaging protocol: Magnetic resonance imaging of the Right lower extremity without contrast. Exam focused on the foot. COMPARISON: CR (LOW EXM, ) 04/12/2022 5:03 PM FINDINGS: Bones and cartilage: Somewhat limited exam with only 4 routine sequences submitted in addition to localizer images. Multiple images are degraded by motion artifacts.? Probable mild hallux valgus on this nonweightbearing exam.? No significant bone marrow abnormality to suggest osseous injury or osteomyelitis. Probable tiny subchondral cysts in the proximal navicular suggesting early degenerative arthritic disease. Joint spaces: No significant joint effusion. LIGAMENTS: Lisfranc ligament: Unremarkable. No evidence of tear. TENDONS: Flexor tendons of foot: Unremarkable. No evidence of tear. Tibialis posterior tendon: Unremarkable as visualized. Peroneal tendons: Unremarkable as visualized. Extensor tendons of foot: Unremarkable. No evidence of tear. Tibialis anterior tendon: Unremarkable as visualized. Tarsal canal (Sinus tarsi): Unremarkable. Tarsal tunnel: Unremarkable. Soft tissues: [id number] diffuse dorsal subcutaneous soft tissue edema with no obvious large drainable abscess/fluid collection. No significant bone marrow abnormality to suggest acute osseous injury or osteomyelitis. Plantar fascia: Unremarkable as visualized. MR/MR foot RT wo con* [id number] IMPRESSION: No acute osteomyelitis or soft tissue abscess. Somewhat limited exam as described. ? Dictated By: Jose Swenson MD Signed By: Jose Swenson MD Signed Date/Time: 04/13/22 0956 A&P Assessment and plan (1) Cellulitis of right foot: (2) Diabetic peripheral neuropathy associated with type 2 diabetes mellitus: (3) 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: harp debridement was performed to the fissure exposing devitalized epidermis, devitalized dermis and fiber granular base down to fat layer. There was no purulence encountered. Debridement was performed sharply with a #15 blade as well as a sterile tissue nippers. Patient encountered pain during the debridement. Topical 5% lidocaine gel utilized as anesthetic, patient continued to have pain. The fissure was debrided and irrigated with 1 L of sterile saline. Debris was evacuated. Debridement was limited due to pain and explai feng to the patient that a more thorough debridement is recommended. I offered a local block, patient declined, states he is scared of needles and he will not allow a local block to be performed. Discussed the option of a surgical debridement under sedation in the operating room, patient adamantly refused operating room and sedation as a option for him. After this conversation he allowed further debridement which I was able to perform bedside with continued discomfort. Postdebridement patient denied any pain. Predebridement wound measurements 2 mm x 1.2 mm x .2 mm. Postdebridement wound measurements 3 mm x 1.6 mm x 2 mm with improved appearance. There was no purulence encountered. Wound did not probe beyond fat layer, no exposed capsule or deep fascia. There was no tunneling. Repeat x-rays postdebridement to evaluate for evacuation of foreign body. Foreign bodies consistent with dirt and grit and small rock. Plan 56-year-old uncontrolled diabetic male, presents with cellulitis to the right foot, there is a transverse fissure at the plantar right hallux, no other source of infection or portal of entry to the right foot. MRI right foot negative for abscess, negative for osteomyelitis Persistent cellulitis to the dorsum of the right foot, transverse fissure at the plantar aspect the right hallux is the likely portal of entry, there is debris in the fissure. Advised patient on the importance of a debridement. He states he will consent for a debridement bedside which was performed this a.m. as above. Dressed with alginate and sterile gauze. Purulent drainage at proximal medial left leg from sinus tract. This appears more chronic in nature, would not rule out chronic osteomyelitis. Intramedullary nail in the left tibia not crossing ankle joint is out of my scope of practice. Left leg wound appears more chronic in nature and could be managed reasonably outpatient from my point of view given soft tissue a ppearance. Recommend referral to orthopedic surgery for eval on potential hardware removal. Recommend continuation of empiric IV antibiotics, podiatry will follow. Pending his response to today's debridement would revisit the idea of surgical debridement to see if he is open to this option. Attestations Medical Necessity Statement*: Cellulitis right foot Coding Level of Care Code Acute Tennis Instructor for [facility] Diagnoses Cellulitis of right foot L03.115 Diabetic peripheral neuropathy associated with type 2 diabetes mellitus E11.42 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 L97.222
[2022-04-14] MEDS: piperacillin-tazobactam 3.375 GM in sodium chloride 0.9% (plus) 50 ML IV (06:39)
--- NOTE | 2022-04-14 07:52 | XRR_ITS ---
PROCEDURE INFORMATION: Exam: XR Right Foot Exam date and time: 04/14/2022 8:03 AM Age: 56 years old Clinical indication: Device placement; Other: Post debridement; Prior surgery; Surgery date: Post-operative (0-2 days); Additional info: Post debridement of fissure plantar right great toe, eval for foreign body TECHNIQUE: Imaging protocol: Radiologic exam of the Right foot. Views: 3 or more views. COMPARISON: MR foot RT wo/w con [id number] 04/13/2022 4:16 PM FINDINGS: Bones/joints: There is a bandage on the great toe. A punctate radiopacity appears to be on the medial plantar skin surface of the great toe. Soft tissues: No fracture or other acute abnormality. There is a 1st metatarsal bunion. XR/XR foot RT min 3V* [id number] IMPRESSION: No acute abnormality.
[2022-04-14] MEDS: gadobenate dimeglumine 20 mL vial IV (08:10)
[2022-04-14 08:29] LABS: PROTEIN, TOTAL 6.6 g/dL (6.1-8.1)
[2022-04-14 08:31] LABS: Glucose Point of Care 148 mg/dL (70-110)
[2022-04-14] MEDS: carvedilol 6.25 mg Tablet PO (09:14)
[2022-04-14] MEDS: losartan 50 mg Tablet 25 MG PO (09:14)
[2022-04-14] MEDS: ferrous gluconate 324 mg Tablet PO (09:15)
[2022-04-14] MEDS: sodium chlor 0.9% + KCl 20 mEq 20 MEQ/1,000 ML BAG 100 MEQ IV (09:22)
[2022-04-14 11:38] LABS: Glucose Point of Care 247 mg/dL (70-110)
[2022-04-14] MEDS: insulin lispro 100 unit/1 mL SUBCUT (12:34)
--- NOTE | 2022-04-14 13:53 | PM.PN ---
Subjective Subjective: No acute events overnight. On examination patient is complaining of burning sensation in his feet. Has remained hemodynamically stable and afebrile. Discussed in detail with him regarding the MRI and CT scan results. Did discuss that there is a high chance that he requires further debridement of his foot secondary to concern of debris along with concern of abscess near the hardware on the other leg with concern for hardware infection as well. Patient verbalized understanding and is agreeable to stay and have treatment. Vitals/I&O/Wt Last Vital Signs Temp 98.2 F 04/14/22 13:49 Pulse 85 04/14/22 13:49 Resp 17 04/14/22 13:49 BP 132/73 04/14/22 13:49 Pulse Ox 95 04/14/22 13:49 O2 Del Method 04/14/22 04:00 04/13/22 04/14/22 04/14/22 22:59 06:59 14:59 Intake Total 620 / 3750 350 / 4100 1530 / 1530 Output Total 500 / 500 250 / 750 Balance 120 / 3250 100 / 3350 1530 / 1530 Weight last 48 hrs Weight 73.539 kg Weight 74.446 kg Weight 81.647 kg Physical Exam Const: COMMON NORMALS: patient oriented x3 and alert GENERAL APPEARANCE: cooperative and disheveled; not comfortable ORIENTATION/CONSCIOUSNESS: Yes awake HENMT: COMMON NORMALS: oropharynx normal Neck/C-Spine: COMMON NORMALS: no JVD Resp: COMMON NORMALS: normal respiratory effort and clear to auscultation bilaterally AUSCULTATION: clear to auscultation bilaterally Cardio: COMMON NORMALS: no JVD, regular rhythm, S1 normal heart sound present, S2 normal heart sound present and No murmurs present (Cardio) RHYTHM: regular rhythm HEART SOUNDS: S1 normal heart sound present and S2 normal heart sound present GI: COMMON NORMALS: Normal to inspection, nondistended, normoactive bowel sounds present, Soft to palpation and non-tender PALPATION: Yes Soft to palpation Extremity: COMMON NORMALS: no joint enlargement OTHER: Erythema, tenderness to palpation dorsal right foot, no wounds or ulceration. Neuro: COMMON NORMALS: patient oriented x3 and moves all extremities SENSORIUM/ORIENTATION: Yes alert Skin: GENERAL SKIN EXAM: erythema (Dorsal right foot) WOUNDS: Yes wounds noted (Ulceration, surrounding induration proximal and anteromedial left tibia ) drainage purulent Data 04/14/22 04:20 04/14/22 04:20 Micro: Microbiology 04/12/22 19:25 Bacterial Antigens - Final Urine Kidney 04/12/22 19:25 Legionella Urinary Antigen - Final Unknown Source 04/12/22 15:04 Blood Culture - Preliminary Blood NEGATIVE TO DATE 04/12/22 15:08 Blood Culture - Preliminary Blood NEGATIVE TO DATE 04/12/22 20:15 Gram Stain - Final Leg - #1 A&P Assessment and plan (1) Sepsis: With leukocytosis 19.9, tachycardia without endorgan damage secondary to cellulitis/osteomyelitis of right foot, hardware infection of left leg. Follow-up blood cultures. Continue with vancomycin and Zosyn. Check MRSA swab, urine Legionella, bacterial antigen. Source likely cellulitis in the right foot. Does also appear to have chronic infection, suspect osteomyelitis and/or orthopedic hardware infection in the proximal left tibia which may have gotten infected after a copperhead bite about a year ago. (2) Cellulitis of foot, right: Awaiting MRI. Appreciate podiatry recommendations. Continue with empiric antibiotics. (3) Non-healing wound of left lower extremity: Nonhealing wound draining purulent drainage for close to about a year in the proximal left tibia at the site of past fracture, orthopedic hardware, and subsequently copperhead snake bite a year ago. Cannot get MRI given hardware presence which would cause error in the read as per agriculture technician. Will order CT lower leg with contrast to rule out hardware infection. Will consult orthopedics accordingly. Check CRP. Follow-up culture results. Antibiotics as above. Wound care. Arterial duplex bilaterally without stenosis or occlusion. (4) Orthopedic hardware present: Open left tibial fracture in 2019. (5) DM type 2 (diabetes mellitus, type 2): Untreated diabetes. Noncompliant patient. Insulin sliding scale at moderate dose protocol. Continue with Lantus 10 units at bedtime. A1c 11.1. He is agreeable to take medications now. Will most likely discharge him on insulin. (6) HTN (hypertension): Goal blood pressure less than 140/90 mmHg. Start on carvedilol 6.25 mg twice daily, losartan 25 mg daily. Check echocardiogram. Will uptitrate as per goals. (7) 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: (8) Diabetic peripheral neuropathy associated with type 2 diabetes mellitus: (9) Hypokalemia: Received replacement check magnesium. (10) Hyponatremia: Mild hyponatremia. Reassess sodium. Do not limit sodium intake. Switch to normal saline at 75 cc/h. (11) Methamphetamine use: Has history of methamphetamine use, agrees to meth abuse today. Last more than couple of weeks ago. Drug screen added to UA from yesterday. Monitor for withdrawal. Check HIV, hepatitis panel (12) Smoking: Encourage cessation. Nicotine replacement. Plan Full code. Carb consistent diet. Heparin 5000 every 12 hourly for DVT prophylaxis Famotidine for PUD prophylaxis Plan for the day: Care discussed in detail with orthopedics. Consulted. Plan for hardware subtracted MRI and possible debridement accordingly. Plan for OR debridement of other feet for removal of debris. Follow-up blood cultures and wound culture. Continue with vancomycin and meropenem for now. Patient hepatitis C positive. Will need to follow-up as an outpatient. Discussed with patient regarding need for outpatient treatment of diabetes. Patient is agreeable to do the same along with treatment for hypertension. For now continue with Coreg and losartan along with insulin sliding scale. Attestations Medical Necessity Statement*: Requires further hospitalization for management of sepsis secondary to possible hardware infection, abscess near hardware, cellulitis secondary to debris in other feet, hepatitis C, new diagnosis of diabetes Time Spent in Patient Care: Greater than 35 minutes Coding Level of Care Code Acute Desktop Support Manager for [facility] Fwd Diagnoses Sepsis A41.9 Cellulitis of foot, right L03.115 Non-healing wound of left lower extremity S81.802A Orthopedic hardware present Z97.8 DM type 2 (diabetes mellitus, type 2) E11.9 HTN (hypertension) I10 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 L97.222 Diabetic peripheral neuropathy associated with type 2 diabetes mellitus E11.42 Hypokalemia E87.6 Hyponatremia E87.1 Methamphetamine use F15.10 Smoking F17.200
--- NOTE | 2022-04-14 14:00 | PM.MISC ---
Miscellaneous Note Purpose of Documentation: Patient left AMA Note: Got a call later in the day by the nurse that patient left AMA at around 1:45 PM. Patient was explained multiple times by myself on my interview with him earlier in the day today along with nurse prior to him leaving AMA regarding need for prolonged hospitalization, further debridement, MRI evaluation to rule out hardware infection. Patient was also advised for long-term antidiabetic and antihypertensive treatment. Medication including oral antibiotic which will be suboptimal for next 2 weeks, antihypertensive and oral OHA's have been sent over to patient's pharmacy. Patient was counseled to follow-up with primary care provider. Please consider this in my note from today as patient's discharge summary or AMA note.
[2022-04-14 15:19] LABS: ALBUMIN 2.3 g/dL (3.8-4.8); ALPHA 1 GLOBULIN 0.5 g/dL (0.2-0.3); ALPHA 2 GLOBULIN 1.1 g/dL (0.5-0.9); BETA 1 GLOBULIN 0.4 g/dL (0.4-0.6); BETA 2 GLOBULIN 0.5 g/dL (0.2-0.5); GAMMA GLOBULIN 1.8 g/dL (0.8-1.7)
--- NOTE | 2022-04-14 17:14 | PC.NURSE ---
I spoke with Dr. Ruff after patient left [facility] and he stated that he had sent Rx to patient's pharmacy and we had set up a f/u appointment with Dr. Kwan for 04/20 at 0800. He requested that I call the patient and let him know. I attempted to call the patient as well as his emergency contact 4 times. There was no voicemail available to leave a message. I informed Dr. Ruff of inability to reach patient. He verbalizes understanding.
--- NOTE | 2022-04-15 16:25 | PC.SOCIAL ---
Per Dr. Ruff patient left AMA and medications were sent in for patient. Floor staff attempted to contact patient multiple times to inform him that meds were sent to the pharmacy for him.
[2022-04-15 22:19] LABS: HEP C RNA Viral Load Quant 4.97 Log IU/mL (NOT DETECTED); HEP C RNA Viral Load Quant 94000 IU/mL (NOT DETECTED)
== END 2022-04-14 13:50 | disposition left against medical advice (07) | DRG 872 ==
LOC: ER 17:11 → MEDSURG 17:56
PROVIDERS: Admitting Provider Internal Medicine; Emergency Provider Emergency Medicine; Visit Provider Student in an Organized Health Care Education/Training Program
DX: A41.9 Sepsis, unspecified organism (principal); L03.115 Cellulitis of right lower limb; T84.623A Infection and inflammatory reaction due to internal fixation device of left tibia, initial encounter; E87.1 Hypo-osmolality and hyponatremia; L97.222 Non-pressure chronic ulcer of left calf with fat layer exposed; M86.8X6 Other osteomyelitis, lower leg; Y83.8 Other surgical procedures as the cause of abnormal reaction of the patient, or of later complication, without mention of misadventure at the time of the procedure; F17.210 Nicotine dependence, cigarettes, uncomplicated; T63.0 Toxic effect of snake venom; E11.622 Type 2 diabetes mellitus with other skin ulcer; E11.65 Type 2 diabetes mellitus with hyperglycemia; E86.0 Dehydration; Z91.119 Patient's noncompliance with dietary regimen due to unspecified reason; E87.6 Hypokalemia; I10 Essential (primary) hypertension; Z91.199 Patient's noncompliance with other medical treatment and regimen due to unspecified reason; E11.42 Type 2 diabetes mellitus with diabetic polyneuropathy; E11.69 Type 2 diabetes mellitus with other specified complication; F15.10 Other stimulant abuse, uncomplicated
CPT/HCPCS: 36415; 36416; 36600; 73590; 73630; 73701; 73718; 80051; 80053; 80061; 80202; 80306; 81001; 82009; 82330; 82607; 82746; 82805; 82962; 83036; 83540; 83550; 83605; 83735; 84100; 84145; 84155; 84165; 84443; 85025; 86140; 86403; 86705; 86706; 86709; 86803; 87040; 87070; 87075; 87186; 87205; 87340; 87449; 87522; 87641; 87806; 93306; 93925; 96365; 96367; 96372; 99285; A9577; J1644; J1815; J2270; J2543; J3370; J3475; J3480; J3490; J7030; J7040; J7120; Q9967

== ENCOUNTER 2022-05-09 10:24 | Inpatient (IN) | payer MEDICAID, SELFPAY ==
[2022-05-09] VITALS (39 sets, daily range): BP systolic 138–206; BP diastolic 85–162; PULSE 79–129; RESP 14–47; TEMP 36.3–37.2; O2SAT 69–100; BMI 23.5; BMI 23.8
--- NOTE | 2022-05-09 10:54 | XRR_ITS ---
PROCEDURE INFORMATION: Exam: XR Chest Exam date and time: 05/09/2022 11:28 AM Age: 56 years old Clinical indication: Shortness of breath; Additional info: SOB TECHNIQUE: Imaging protocol: Radiologic exam of the chest. Views: 1 view. COMPARISON: CR XR chest 1V [id number] 10/29/2018 1:36 AM FINDINGS: Lungs: Mild bilateral hilar vascular congestion No consolidation. Pleural spaces: Unremarkable. No pleural effusion. No pneumothorax. Heart/Mediastinum: Unremarkable. No cardiomegaly. Bones/joints: Unremarkable. XR/XR chest 1V portable [id number] IMPRESSION: Mild bilateral hilar vascular congestion Otherwise No acute findings.
--- NOTE | 2022-05-09 10:54 | ECG_ITS ---
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 Measurements Intervals [place] Rate: 114 P: 61 NE: 152 QRS: 88 QRSD: 87 T: 62 QT: 359 QTc: 494 Interpretive Statements SINUS TACHYCARDIA POSSIBLE LEFT ATRIAL ENLARGEMENT [-0.1mV P-WAVE IN V1/V2] NONSPECIFIC T-WAVE ABNORMALITY ABNORMAL RHYTHM ECG Compared to ECG 10/29/2018 02:06:59 T-wave abnormality now present Sinus rhythm no longer present Electronically Signed On 05-10-2022 19:51:31 ETHOLOGIST by Yolette Snow M.D. [email or web address]
--- NOTE | 2022-05-09 10:56 | W.ED.SOB ---
HPI - SOB/Dyspnea General: Chief Complaint: Shortness of Breath/Dyspnea Stated Complaint: sob Time Seen by Provider: 05/09/22 10:43 Source: patient Mode of arrival: ambulatory Limitations: no limitations History of Present Illness: HPI Narrative: 56-year-old male who has multiple medical issues he has high blood pressure diabetes per family has not been compliant on any of his meds he states he been having dyspnea along with chest pain over the last month he does have rales here and he is hypoxic he is requiring 4 L of oxygen here in the room. He states that shortness of breath is gotten much worse he denies any cough or fever he denies any vomiting or diarrhea. Associated symptoms: Reports chest pain; Deny abdominal pain, fever(s), nausea or vomiting Review of Systems Const: Denies: fever(s), chills, body aches or change in appetite Eyes: Denies: blurry vision or eye discomfort ENMT: Denies: throat pain or dental pain Card: Reports: chest pain Resp: Reports: dyspnea GI: Denies: abdominal pain, nausea, vomiting or diarrhea : Denies: dysuria Musc: Denies: neck pain or back pain Skin/Breast: Denies: rash Neuro: Denies: headache(s) Psych: Denies: depression Boy/Lymph: Denies: easy bruising All/Imm: Denies: urticaria PFSH ED PFSH: Medical History Diabetes HTN (hypertension) Methamphetamine use Open tibial fracture Smoking Surgical History History of surgery on lower extremity Family History Other Crohn's disease Diabetes Social History Smoking and tobacco status: current every day smoker cigarettes Alcohol intake: current Alcohol intake frequency: holidays/special occasions only Lives independently: Yes Household members: none Marital status: 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 Physical Exam Const: COMMON NORMALS: patient oriented x3 GENERAL APPEARANCE: ill appearing HENMT: COMMON NORMALS: normocephalic and atraumatic HEAD & SCALP: normocephalic and atraumatic Eye: COMMON NORMALS: Equal, round and reactive pupils present and EOMs intact bilaterally PUPIL: Yes Equal, round and reactive pupils present Neck/C-Spine: COMMON NORMALS: full ROM and supple Chest: COMMONS NORMALS: normal inspection of the chest and normal palpation of entire chest wall Resp: COMMON NORMALS: No retractions EFFORT & INSPECTION: Yes tachypneic AUSCULTATION: rales Cardio: COMMON NORMALS: regular rate, regular rhythm and No murmurs present (Cardio) RATE: regular rate RHYTHM: regular rhythm GI: COMMON NORMALS: Normal to inspection, nondistended, normoactive bowel sounds present, Soft to palpation, non-tender and no masses PALPATION: Yes Soft to palpation Extremity: COMMON NORMALS: normal to inspection and full ROM Neuro: COMMON NORMALS: patient oriented x3, moves all extremities and no focal motor deficits Psych: COMMON NORMALS: mental status grossly normal, Normal thought process present and cooperative THOUGHT PROCESS: Normal thought process present Skin: COMMON NORMALS: no rashes or lesions noted and no wounds GENERAL SKIN EXAM: no rashes or lesions noted Course Vital Signs: Vital signs: Vital Signs Temperature 97.4 F L 05/09/22 10:32 Pulse Rate 102 H 05/09/22 14:00 Respiratory Rate 34 H 05/09/22 14:00 Blood Pressure 164/111 05/09/22 14:00 Pulse Oximetry 81 L 05/09/22 14:00 Oxygen Delivery Me thod 05/09/22 12:30 Oxygen Flow Rate 4 05/09/22 12:30 MDM - SOB/Dyspnea Medical Decision Making Patient presents here with increased dyspnea he does have pulm edema likely from CHF, noncompliant with his diabetes A. fib he has been hypoxic he will restart him on BiPAP did speak to family they do want him to be a DNR and DNI will admit to cardiac stepdown this time. Lab Data 05/09/22 12:08 05/09/22 12:08 Labs/Radiology: Radiology Impressions Chest X-Ray 05/09/22 10:54 IMPRESSION: Mild bilateral hilar vascular congestion Otherwise No acute findings. Chest CTA 05/09/22 12:58 IMPRESSION: 1. Negative for pulmonary embolism. 2. Large bilateral lower lobe pleural effusions. 3. Bilateral lower lobe atelectasis 4. Negative for right heart strain. 5. Ground-glass interstitial densities in both lungs. Laboratory Results WBC 8.7 10^3/uL (4.0-10.0) 05/09/22 12:08 RBC 3.95 10^6/uL (4.1-5.3) L 05/09/22 12:08 Hgb 12.5 g/dL (11.7-16.6) 05/09/22 12:08 Hct 37.9 % (42.0-52.0) L 05/09/22 12:08 MCV 95.9 fl (80-94) H 05/09/22 12:08 MCH 31.6 pg (28.0-34.0) 05/09/22 12:08 MCHC 33.0 g/dL (30.0-36.0) 05/09/22 12:08 RDW 14.5 % (12.1-15.1) 05/09/22 12:08 Plt Count 311 10^3/cmm (130-400) 05/09/22 12:08 MPV 11.1 fL (7.4-10.4) H 05/09/22 12:08 Neut % (Auto) 78.0 % 05/09/22 12:08 Lymph % (Auto) 15.5 % 05/09/22 12:08 [place] % (Auto) 5.8 % 05/09/22 12:08 Eos % (Auto) 0.3 % 05/09/22 12:08 Baso % (Auto) 0.1 % 05/09/22 12:08 Neut # (Auto) 6.75 10^3/uL (1.8-7.7) 05/09/22 12:08 Lymph # (Auto) 1.3 10^3/uL (0.8-4.8) 05/09/22 12:08 [place] # (Auto) 0.5 10^3/uL (0.2-0.9) 05/09/22 12:08 Eos # (Auto) 0.0 10^3/uL (0.0-0.8) 05/09/22 12:08 Baso # (Auto) 0.0 10^3/uL (0.0-0.1) 05/09/22 12:08 Nucleated RBC % (auto) 0 % 05/09/22 12:08 Nucleated RBCs # 0.0 /100WBC 05/09/22 12:08 PT 13.20 SECONDS (12.1-14.9) 05/09/22 12:08 INR 0.97 (0.8-1.2) 05/09/22 12:08 D-Dimer 1.33 ug/mIFEU (0-0.59) H 05/09/22 12:08 Specimen Type Arterial 05/09/22 11:01 Sample Site Radial, right 05/09/22 11:01 ABG pH 7.46 (7.35-7.45) H 05/09/22 11:01 ABG pCO2 40.8 mmHg (35-45) 05/09/22 11:01 ABG pO2 55.5 mmHg (80.0-100.0) L 05/09/22 11:01 ABG HCO3 29.3 mmol/L (22-26) H 05/09/22 11:01 ABG Base Excess 5.0 mmol/L (-2.0-2.0) H 05/09/22 11:01 Frandy Test Pos 05/09/22 11:01 Hematocrit 38.9 % (42-52) L 05/09/22 11:01 O2 Delivery Device Nc 05/09/22 11:01 O2 Liters/Min 44.0 % 05/09/22 11:01 FiO2 36.0 % 05/09/22 11:01 Heel Caser ID Cak 05/09/22 11:01 Sodium 138 mmol/L (136-145) 05/09/22 12:08 Potassium 3.6 mmol/L (3.5-5.1) 05/09/22 12:08 Chloride 100 mmol/L (98-107) 05/09/22 12:08 Carbon Dioxide 29 mmol/L (22-29) 05/09/22 12:08 Anion Gap 12.6 (5-19) 05/09/22 12:08 BUN 8 mg/dL (6-20) 05/09/22 12:08 Creatinine 0.4 mg/dL (0.7-1.2) L 05/09/22 12:08 GFR Calculation 267.3 mL/min (90-130) H 05/09/22 12:08 Glucose 338 mg/dL (65-115) H 05/09/22 12:08 Calculated Osmolality 298 mOsm/kg (285-295) H 05/09/22 12:08 Calcium 8.6 mg/dL (8.5-10.5) 05/09/22 12:08 Total Bilirubin 0.4 mg/dL (0.15-1.2) 05/09/22 12:08 AST 77 U/L (0-40) H 05/09/22 12:08 ALT 52 U/L (0-41) H 05/09/22 12:08 Alkaline Phosphatase 252 U/L (40-130) H 05/09/22 12:08 Troponin T Baseline 26 ng/L (0-15) H 05/09/22 12:08 NT-Pro-B Natriuret Pep 2567 pg/mL (0-125) H 05/09/22 12:08 Total Protein 7.7 g/dL (6.6-8.7) 05/09/22 12:08 Albumin 2.9 g/dL (3.5-5.2) L 05/09/22 12:08 Globulin 4.8 g/dL (1.3-4.6) H 05/09/22 12:08 EKG Data EKG 1: I personally reviewed and interpreted this EKG as follows: EKG Interpretation Date: 05/09/22 EKG interpretation time: 11:06 Interpretation: sinus tac h hr [address] or t wave abnormalities qrs 87 qtc 426 Critical Care Time Critical Care Time: Critical Care Time: Yes Total Critical Care Time: 45 Attestation: The high probability of a clinically significant, sudden or life threatening deterioration of the patient's resp system(s) required my full and direct attention, intervention and personal management. The critical care time is as shown. This time is in addition to time spent performing any reported procedures but includes the following: [x] Data and vital sign review and interpretation [x] Patient assessment, examination and intervention [x] Documentation [x] Medication orders and management Discharge Plan Discharge Patient Disposition: Admitted As Inpatient Clinical Impression: Congestive heart failure, Hypertension, Atrial fibrillation with RVR, Acute respiratory failure with hypoxemia Condition: Stable Coding Level of Care Code ED Pipe Out Worker for Chg Fwd Exam Comprehensive
[2022-05-09 11:12] LABS: ABG PCO2 40.8 mmHg (35-45); ABG PH Result 7.46 (7.35-7.45); Arterial Blood Gas Hematocrit 38.9 % (42-52); Blood Gas Allen Test Pos; Blood Gas Operator Identificat CAK; Blood Gas Sample Site Radial, right; Blood Gas Sample Type Arterial; HCO3 ABG 29.3 mmol/L (22-26); Oxygen Device NC; PO2 ABG 55.5 mmHg (80.0-100.0)
--- NOTE | 2022-05-09 11:18 | PC.PHAR ---
pts family states the pt doesnt like to take medications and is not taking any rx medications or otc medications-pt had rxs written on 04/14/22 from for coreg 6.25mg q12h,glipizide 10mg daily,levofloxacin 500mg daily,linezolid 600mg bid,losartan 25mg daily,and metformin plain 500mg bid family states the pt never picked up the medications
[2022-05-09] MEDS: labetalol 5 mg/mL SDV 20mL 10 MG IVP ×2 (11:49→19:41)
[2022-05-09 12:43] LABS: Basophils % 0.1 %; Eosinophils % 0.3 %; Hematocrit 37.9 % (42.0-52.0); Hemoglobin 12.5 g/dL (11.7-16.6); Lymphocytes # 1.3 10^3/uL (0.8-4.8); Lymphocytes % 15.5 %; Mean Corpuscular Hemoglobin 31.6 pg (28.0-34.0); Mean Corpuscular Volume 95.9 fl (80-94); Mean Platelet Volume 11.1 fL (7.4-10.4); Monocytes # 0.5 10^3/uL (0.2-0.9); Monocytes % 5.8 %; Neutrophils # 6.75 10^3/uL (1.8-7.7); Nucleated Red Blood Cells % 0 %; Platelet Count 311 10^3/cmm (130-400); Red Blood Count 3.95 10^6/uL (4.1-5.3); Red Cell Distribution Width 14.5 % (12.1-15.1); White Blood Count 8.7 10^3/uL (4.0-10.0)
[2022-05-09 12:52] LABS: INR 0.97 (0.8-1.2)
--- NOTE | 2022-05-09 12:54 | ECG_ITS ---
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 Measurements Intervals [place] Rate: 101 P: 67 AL: 138 QRS: 102 QRSD: 96 T: 99 QT: 376 QTc: 488 Interpretive Statements SINUS TACHYCARDIA POSSIBLE LEFT ATRIAL ENLARGEMENT [-0.1mV P-WAVE IN V1/V2] RIGHT AXIS DEVIATION [QRS AXIS > 100] MODERATE T-WAVE ABNORMALITY, CONSIDER ANTERIOR ISCHEMIA [-0.1+ mV T-WAVE IN V3/V4] Compared to ECG 05/09/2022 11:06:27 Right-axis deviation now present Possible ischemia now present T-wave abnormality still present Electronically Signed On 05-10-2022 20:17:34 ROD HANGER by Yolette Snow M.D. [id number]
[2022-05-09 12:55] LABS: D Dimer 1.33 ug/mIFEU (0-0.59)
--- NOTE | 2022-05-09 12:58 | CTR_ITS ---
PROCEDURE INFORMATION: Exam: CTA Chest With Contrast Exam date and time: 05/09/2022 1:28 PM Age: 56 years old Clinical indication: Shortness of breath; Additional info: SOB TECHNIQUE: Imaging protocol: Computed tomographic angiography of the chest with contrast. 3D rendering (Not supervised by radiologist): MIP and/or 3D reconstructed images were created by the technologist. Radiation optimization: All CT scans at this facility use at least one of these dose optimization techniques: automated exposure control; mA and/or kV adjustment per patient size (includes targeted exams where dose is matched to clinical indication); or iterative reconstruction. Contrast material: OMNI 350; Contrast volume: 76 ml; Contrast route: INTRAVENOUS (IV); COMPARISON: CR (CHEST, ) 05/09/2022 11:28 AM RADIATION DOSE METRICS: Total DLP (mGy-cm): 343.62 FINDINGS: Pulmonary arteries: There is suboptimal contrast density in all portions of the pulmonary arterial system. No evidence of a clearly visible pulmonary emboli are seen.. Aorta: Unremarkable. No aortic aneurysm. No aortic dissection. Lungs: There are scattered ground-glass type interstitial densities are present in both lungs. There is atelectasis present in bilateral lower lobes. No consolidation. No masses. Pleural spaces: Unremarkable. No pneumothorax. Large bilateral lower lobe pleural effusion. Heart: Negative for right heart strain No cardiomegaly. Negative for pericardial effusion. Lymph nodes: Unremarkable. No enlarged lymph nodes. Bones/joints: Unremarkable. No acute fracture. Soft tissues: Unremarkable. CT/CT angio chest PE protcl [id number] IMPRESSION: 1. Negative for pulmonary embolism. 2. Large bilateral lower lobe pleural effusions. 3. Bilateral lower lobe atelectasis 4. Negative for right heart strain. 5. Ground-glass interstitial densities in both lungs.
[2022-05-09 13:04] LABS: Troponin(5th) Baseline 26 ng/L (0-15)
[2022-05-09 13:14] LABS: Alanine Aminotransferase 52 U/L (0-41); Albumin Level 2.9 g/dL (3.5-5.2); Alkaline Phosphatase 252 U/L (40-130); Anion Gap 12.6 (5-19); Aspartate Amino Transferase 77 U/L (0-40); Blood Urea Nitrogen 8 mg/dL (6-20); Calcium 8.6 mg/dL (8.5-10.5); Carbon Dioxide 29 mmol/L (22-29); Chloride 100 mmol/L (98-107); Globulin 4.8 g/dL (1.3-4.6); Glomerular Filtration Rate 267.3 mL/min (90-130); Glucose 338 mg/dL (65-115); NT Pro B Type Natriuretic Pept 2567 pg/mL (0-125); Osmolality Calculated 298 mOsm/kg (285-295); Potassium 3.6 mmol/L (3.5-5.1); Sodium 138 mmol/L (136-145); Total Bilirubin 0.4 mg/dL (0.15-1.2); Total Protein 7.7 g/dL (6.6-8.7)
[2022-05-09] MEDS: iohexol 350 mg/mL 500 mL Btl (per mL) IV (13:32)
[2022-05-09] MEDS: FUROsemide 10 mg/mL SDV 4mL 40 MG IVP (14:00)
--- NOTE | 2022-05-09 15:17 | USCV_ITS ---
Leroy Olivo Age: 56 Gender: M : 1965 Exam Date: 05/09/2022 16:10 Ordering Phys: Juan M Muñoz MD Technologist: KARINE Exam Location: [facility] – [place] Indication: EF Valves BP: 164 / 105 HR: 102 Rhythm: Sinus Technical Quality: Adequate MEASUREMENTS (Male / Female) Normal Values 2D ECHO LV Diastolic Diameter PLAX 6.0 cm 4.2 - 5.9 / 3.9 - 5.3 cm LV Systolic Diameter PLAX 4.4 cm IVS Diastolic Thickness 0.5 cm 0.6 - 1.0 / 0.6 - 0.9 cm IVS Systolic Thickness 0.9 cm LVPW Diastolic Thickness 0.5 cm 0.6 - 1.0 / 0.6 - 0.9 cm LVPW Systolic Thickness 1.2 cm LV Ejection Fraction 2D Teich 51.8 % FINDINGS Left Ventricle Normal LV size with borderline low ejection fraction of 52%. Relative hypokinesia of the inferolateral wall segment Right Ventricle The right ventricle is normal in size and function. Right Atrium The right atrium is normal in size. Left Atrium The left atrium is normal in size. Mitral Valve Thickened mitral valve. Aortic Valve Thickened aortic valve. Tricuspid Valve No gross abnormalities noted Pulmonic Valve No gross abnormalities noted Pericardium Normal pericardium without effusion. Aorta Normal ascending aorta dimension. IVC The inferior vena cava appears normal. CONCLUSIONS Normal LV size with borderline low ejection fraction of 52%. Relative hypokinesia of the inferolateral wall segment Thickened mitral valve. Thickened aortic valve. There is no pericardial effusion. There are no intracardiac masses. Compared to the study from 04/13/2022, the relative hypokinesia of the inferolateral wall segment appears to be new. Consider further work-up, if clinically indicated Dr Yolette Snow MD [facility] (Electronically Signed) Final Date: 09 May 2022 21:36 S
--- NOTE | 2022-05-09 15:18 | P.HP_ITS ---
Providers/Chief Complaint Chief Complaint: sob History of Present Illness Very pleasant 17-txhd-ivu-year-old gentleman with history of untreated diabetes, HTN, smoking, untreated hepatitis C, recent hospitalization due to sepsis, with cellulitis of right foot with fissure and wound on proximal right hallux with attempted partial debridement, as well as nonhealing chronically draining wound of left lower extremity at the tibia proximal to the knee past history of copperhead bite as possible initial etiology reduction of infection but also with presence of orthopedic hardware in the left lower extremity with suspicion of osteomyelitis and possible hardware infection. He ended up leaving AMA during last hospitalization. He did not fill his prescriptions. He does state that the right foot infection has subsided. The fissure is still present. Left lower leg wound unchanged, still chronically draining. Blood cultures from last admission were negative. Wound culture from leg grew strep pyogenes. He presents to the hospital due to significant dyspnea, with new oxygen requir ement, initially started on 4 L oxygen, but ended up requiring NIPPV support. As per his wishes CODE STATUS is DNR/DNI. He is found to have bilateral vascular congestion on chest x-ray. CT angiogram of the chest was obtained due to abnormal D-dimer and tachycardia on presentation along with respiratory failure, was negative for PE. Large bilateral lower lobe pleural effusions. Bilateral lower lobe atelectasis. Negative for right heart strain. Groundglass interstitial densities in both lungs. He has been having some dry cough. Nonproductive. He has not had his flu vaccine. She does still smoke. She denies any chest pain or pressure. He has been having an ache all over. No headache, no nausea vomiting or diarrhea. He has been feeling cold recently. Review of Systems Const: Reports: body aches, fatigue and malaise ENMT: Denies: throat pain Card: Denies: chest pain, edema or pre-syncope Resp: Reports: dyspnea and non-productive cough; Denies: change in phlegm color or hemoptysis GI: Denies: abdominal pain, nausea, vomiting, diarrhea, constipation, hematochezia or melena : Denies: flank pain, difficulty urinating, urinary frequency or hematuria Musc: Denies: back pain, joint swelling or joint redness Skin/Breast: Denies: rash or new lesions Neuro: Denies: headache(s), numbness in extremities, weakness in extremities, dizziness, confusion or seizure-like activity Endo: Reports: tired all the time and cold intolerance All/Imm: Denies: throat swelling or facial swelling Medications/Allergies Home Medications Medication Instructions Recorded Confirmed Last Taken Type No Known Home Medications 05/09/22 05/09/22 Unknown History Allergies Allergy/AdvReac Type Severity Reaction Status Date / Time No Known Allergies Allergy Verified 05/09/22 11:20 PFSH Acute PFSH: Medical History 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 Diabetes Diabetic peripheral neuropathy associated with type 2 diabetes mellitus HTN (hypertension) Methamphetamine use Non-healing wound of left lower extremity Open tibial fracture Orthopedic hardware present Smoking Surgical History History of surgery on lower extremity Family History Other Crohn's disease Diabetes Social History Smoking and tobacco status: current every day smoker cigarettes Alcohol intake: current Alcohol intake frequency: holidays/special occasions only Lives independently: Yes Household members: none Marital status: 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 NIV mask on. Const: COMMON NORMALS: patient oriented x3 and alert GENERAL APPEARANCE: cooperative ORIENTATION/CONSCIOUSNESS: Yes awake HENMT: COMMON NORMALS: oropharynx normal Resp: AUSCULTATION: rhonchi, wheezes and diminished lung sounds Cardio: COMMON NORMALS: regular rhythm, S1 normal heart sound present, S2 normal heart sound present and No murmurs present (Cardio) RATE: tachycardic RHYTHM: regular rhythm HEART SOUNDS: S1 normal heart sound present and S2 normal heart sound present GI: COMMON NORMALS: Normal to inspection, nondistended, normoactive bowel sounds present, Soft to palpation and non-tender PALPATION: Yes Soft to palpation Extremity: COMMON NORMALS: no joint enlargement and no pedal edema Neuro: COMMON NORMALS: patient oriented x3 and moves all extremities SENSORIUM/ORIENTATION: Yes alert Skin: COMMON NORMALS: no rashes or lesions noted GENERAL SKIN EXAM: no rashes or lesions noted OTHER: Resolved erythema on dorsal right foot. Persistent fissure plantar proximal right hallux. Due to coming plantar surface. Difficult to tell if any debris in the fissure. No drainage. Proximal left lower extremity round wound with crusted drainage. Data 05/09/22 12:08 05/09/22 12:08 A&P Assessment and plan (1) Acute respiratory failure: Suspected secondary to acute diastolic CHF, with noted elevated BNP, bilateral pleural effusions. Troponins so far mildly elevated without increasing trend. Received Lasix. Requiring BiPAP. Continue BiPAP, continue Lasix every 12 hours IV. Monitor and low. Weights. Reassess limited echo for ejection fraction, valves. Reassess chemistry for electrolytes, renal function. Wean down to oxygen support when tolerating, RT to assess and treat. For now clear liquid diet. Switch to cardiac consistent carb once weaned off BiPAP. With bronchospastic component, wheezing, also rhonchi. May have infectious bronchitis. Assess COVID-19 panel, rapid influenza. He is a chronic smoker, unknown if has underlying COPD. Not bringing up phlegm. DuoNeb treatments, budesonide intervention, Mucinex. Flutter valve once able to. I-S. (2) Acute diastolic CHF (congestive heart failure): As above. (3) Bilateral pleural effusion: IV Lasix as above. Follow-up imaging for improvement. (4) Ground glass opacity present on imaging of lung: He is afebrile, without leukocytosis. Bacterial pneumonia suspicion is low. He has been having dry cough, however, does have wheezing. We will request reassessment with COVID PCR panel, rapid influenza. (5) Transaminitis: With untreated hepatitis C. Follow-up liver parameters. (6) Alkaline phosphatase elevation: With continued hepatitis C, possibly also with osteomyelitis left lower extremity. Follow-up with your parameters. Plan Nonhealing wound left lower extremity, suspicion of osteomyelitis, possible hardware infection. Resume work-up once he is out of acute illness. It appears last time MRI could not be performed and contrast CT was considered instead. Will need follow-up with orthopedics. Resolved cellulitis to the right foot, but persistent fissure under proximal left hallux. Feet are covered in dried, difficult to see if there is any debris in the wound. No drainage. Clean feet, will add Santyl due to significant cornified tissue surrounding the fissure and he did not tolerate debridement last time. Poor adherence to medical treatments: States that he is here trying to make good and receive treatment. Last time ended up leaving A. He did not feel his antibiotic prescriptions last time and has not been taking his other medications. Dates that he has come around and wants to receive treatment. He lives by himself. He has had significant functional decline. Once able to move benefit from PT, OT assessment. We will request also CM consultation. He states he also needs a PCP. Elevated D-dimer, no PE CTA. Otherwise not presenting with any unilateral leg swelling to suggest DVT. Suspect may be related to his chronic infection. DVT prophylaxis. Smoking addiction: Encourage cessation. Discussed with him nicotine patch and lozenges which are ordered. Attestations Medical Necessity Statement*: Admission of over 2 midnights and management of respiratory failure, acute decompensated CHF in a gentleman with additional underlying comorbidities as above. Coding Level of Care Code Acute Paper Supervisor for Yannick Duenas Diagnoses Acute respiratory failure J96.00 Acute diastolic CHF (congestive heart failure) I50.31 Bilateral pleural effusion J90 Ground glass opacity present on imaging of lung R91.8 Transaminitis R74.01 Alkaline phosphatase elevation R74.8
--- NOTE | 2022-05-09 18:07 | ECG_ITS ---
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 Measurements Intervals [place] Rate: 110 P: 56 [place]: 112 QRS: 75 QRSD: 88 T: 44 QT: 354 QTc: 480 Interpretive Statements SINUS TACHYCARDIA WITH SHORT [place] INTERVAL POSSIBLE LEFT ATRIAL ENLARGEMENT [-0.1mV P-WAVE IN V1/V2] NONSPECIFIC T-WAVE ABNORMALITY ABNORMAL RHYTHM ECG Compared to ECG 05/09/2022 13:50:03 Short [place] interval now present Right-axis deviation no longer present Possible ischemia no longer present T-wave abnormality still present Electronically Signed On 05-10-2022 20:17:43 EVENT MARKETING SPECIALIST by Yolette Snow M.D. [id number]
--- NOTE | 2022-05-09 18:32 | PC.NURSE ---
Patient refused PCR. Provider made aware.
[2022-05-09 18:35] LABS: Troponin 5 6HR 27.86 ng/L (0-15)
[2022-05-09 18:44] LABS: Troponin 5 6HR Delta 1.86 ng/L (0-12)
[2022-05-09 19:08] LABS: Glucose Point of Care 415 mg/dL (70-110)
[2022-05-09] MEDS: heparin 5,000 unit/mL INJ 1 mL 5000 UNIT SUBCUT (19:10)
[2022-05-09] MEDS: insulin lispro 100 unit/1 mL SUBCUT (19:10)
[2022-05-09] MEDS: guaiFENesin 600 mg Tablet PO (19:10)
[2022-05-09] MEDS: HYDROmorphone 1 mg/mL INJ 1 mL 0.5 MG IVP ×2 (19:38→23:47)
[2022-05-09] MEDS: ipratropium-albuterol 3 mL Neb INHALATION (20:38)
[2022-05-09] MEDS: budesonide 0.5 mg/2 mL Neb INHALATION (20:38)
[2022-05-09 22:37] LABS: Glucose Point of Care 129 mg/dL (70-110)
[2022-05-10] VITALS (29 sets, daily range): BP systolic 126–187; BP diastolic 81–130; PULSE 95–121; RESP 11–35; TEMP 37.1–37.4; O2SAT 89–100; BMI 23.9
[2022-05-10] MEDS: ipratropium-albuterol 3 mL Neb INHALATION ×4 (02:58→21:00)
[2022-05-10] MEDS: FUROsemide 10 mg/mL SDV 10mL 60 MG IVP ×2 (05:29→16:42)
[2022-05-10] MEDS: heparin 5,000 unit/mL INJ 1 mL 5000 UNIT SUBCUT ×2 (05:30→18:26)
[2022-05-10 06:26] LABS: Basophils % 0.2 %; Eosinophils % 0.2 %; Hematocrit 39.9 % (42.0-52.0); Hemoglobin 12.8 g/dL (11.7-16.6); Lymphocytes # 1.8 10^3/uL (0.8-4.8); Lymphocytes % 14.9 %; Mean Corpuscular HGB Conc 32.1 g/dL (30.0-36.0); Mean Corpuscular Hemoglobin 31.1 pg (28.0-34.0); Mean Corpuscular Volume 97.1 fl (80-94); Mean Platelet Volume 11.3 fL (7.4-10.4); Monocytes # 0.6 10^3/uL (0.2-0.9); Monocytes % 4.9 %; Neutrophils # 9.49 10^3/uL (1.8-7.7); Neutrophils % 79.4 %; Nucleated Red Blood Cells % 0 %; Platelet Count 350 10^3/cmm (130-400); Red Blood Count 4.11 10^6/uL (4.1-5.3); Red Cell Distribution Width 14.8 % (12.1-15.1); White Blood Count 11.9 10^3/uL (4.0-10.0)
[2022-05-10 07:04] LABS: Alanine Aminotransferase 53 U/L (0-41); Albumin Level 3.2 g/dL (3.5-5.2); Alkaline Phosphatase 247 U/L (40-130); Anion Gap 14.6 (5-19); Aspartate Amino Transferase 65 U/L (0-40); Blood Urea Nitrogen 11 mg/dL (6-20); Calcium 8.7 mg/dL (8.5-10.5); Carbon Dioxide 30 mmol/L (22-29); Chloride 99 mmol/L (98-107); Globulin 5.2 g/dL (1.3-4.6); Glomerular Filtration Rate 267.3 mL/min (90-130); Glucose 108 mg/dL (65-115); Osmolality Calculated 290 mOsm/kg (285-295); Potassium 3.6 mmol/L (3.5-5.1); Sodium 140 mmol/L (136-145); Thyroid Stimulating Hormone 0.84 uIU/mL (0.27-4.20); Total Bilirubin 0.6 mg/dL (0.15-1.2); Total Protein 8.4 g/dL (6.6-8.7)
[2022-05-10 07:30] LABS: Glucose Point of Care 126 mg/dL (70-110)
[2022-05-10] MEDS: budesonide 0.5 mg/2 mL Neb INHALATION ×2 (08:19→21:00)
[2022-05-10] MEDS: guaiFENesin 600 mg Tablet PO ×2 (08:37→18:26)
[2022-05-10 11:40] LABS: SARS Covid-2 Antigen negative (Negative)
[2022-05-10 11:41] LABS: Influenza A by IFA negative (Negative); Influenza B by IFA negative (Negative)
[2022-05-10 11:57] LABS: Glucose Point of Care 313 mg/dL (70-110)
[2022-05-10] MEDS: insulin lispro 100 unit/1 mL SUBCUT ×2 (12:20→23:00)
--- NOTE | 2022-05-10 14:56 | CTR_ITS ---
PROCEDURE INFORMATION: Exam: CT Left Lower Extremity With Contrast; Lower Leg Exam date and time: 05/10/2022 4:16 PM Age: 56 years old Clinical indication: Swelling, leg or foot; Prior surgery; Surgery date: 6+ months; Additional info: Possible om and/or hardware infection w nonhealing/draining, ulcer proximal anteromaedial tibia TECHNIQUE: Imaging protocol: CT of the Left lower extremity with intravenous contrast was performed. Exam focused on the lower leg. Radiation optimization: All CT scans at this facility use at least one of these dose optimization techniques: automated exposure control; mA and/or kV adjustment per patient size (includes targeted exams where dose is matched to clinical indication); or iterative reconstruction. Contrast material: OMNI 350; Contrast volume: 100 ml; Contrast route: INTRAVENOUS (IV); COMPARISON: CT lower leg LT w con [id number] 04/13/2022 4:54 PM RADIATION DOSE METRICS: Total DLP (mGy-cm): 564.96 FINDINGS: Bones/joints: There is no knee joint effusion. There is an intramedullary arturo with interlocking screw fixation in the tibia. There is unchanged lucency/cortical destruction along the anteromedial tibia of the proximal interlocking screw measuring up to 5 mm. There is unchanged lucency surrounding the proximal intramedullary arturo measuring up to 2.5 mm. No new or progressive bony destruction or evidence of hardware loosening. No hardware fracture. Unchanged chronic periosteal reaction and bony remodeling along the old fracture line is noted. There is marked cortical thickening, and ostial sclerosis and periosteal reaction in the proximal tibia adjacent to the tube proximal interlocking screws concerning for chronic osteomyelitis. No bony destruction or osteomyelitis in the distal 2/3 of the tibia or fibula. Soft tissues: There is skin thickening, induration of the subcutaneous fat and findings of probable cellulitis extending from the level of the patella to the proximal 3rd tibial diaphysis compatible with cellulitis. Soft tissue phlegmon of the anteromedial proximal tibia directly overlying/at the level of the 2 proximal interlocking screws. Although there is artifact from the postoperative hardware, there is concern for small abscess/subperiosteal abscess along the anteromedial tibia measuring 1.2 x 1.8 x 2.5 cm interposed between the tips of the 2 interlocking screws best seen on series 5, image 69. No intramuscular fluid collection. No gas in the soft tissues or muscles. Vasculature: There are vascular calcifications. CT/CT lower leg LT w con [id number] IMPRESSION: 1. There is marked cortical thickening, and ostial sclerosis and periosteal reaction in the proximal tibia adjacent to the tube proximal interlocking screws concerning for chronic osteomyelitis. No acute fracture or new bony destruction. 2. There is skin thickening, induration of the subcutaneous fat and findings of probable cellulitis with soft tissue phlegmon of the anteromedial proximal tibia greatest directly overlying/at the level of the 2 proximal interlocking screws. 3. Although there is artifact from the postoperative hardware, there is concern for small abscess/subperiosteal abscess along the anteromedial tibia measuring 1.2 x 1.8 x 2.5 cm interposed between the tips of the 2 interlocking screws best seen on series 5, image 69.
[2022-05-10] MEDS: iohexol 350 mg/mL 500 mL Btl (per mL) IV (16:26)
--- NOTE | 2022-05-10 17:02 | PC.NURSE ---
Report called to Kevin, CSU. Patient transferred to CSU room 104. Patient resting in bed with BUN ICER at bedside as well as family members. Patient saturating well on 2L NC, denies pain, and is pleasant in demeanor at time of transfer. Patient and family had no questions. Chart left with staff at front maker lock[employer]ch.
--- NOTE | 2022-05-10 19:50 | PM.PN ---
Subjective Subjective: He states he is breathing slightly better. He still wheezing. Has weaned off BiPAP. So far doing okay on nasal cannula. Not normally on supplemental oxygen. Vitals/I&O/Wt Last Vital Signs Temp 98.7 F 05/10/22 15:00 Pulse 108 H 05/10/22 16:00 Resp 25 H 05/10/22 16:00 BP 166/94 05/10/22 16:00 Pulse Ox 94 05/10/22 16:00 O2 Del Method 05/10/22 16:00 O2 Flow Rate 2 05/10/22 16:00 FiO2 30 05/10/22 05:55 05/10/22 05/10/22 05/10/22 06:59 14:59 22:59 Intake Total 480 / 480 100 / 580 Output Total 1300 / 1300 Balance -820 / -820 100 / -720 Weight last 48 hrs Weight 69.4 kg Weight 68.946 kg Weight 68.039 kg Physical Exam Narrative: Brother and parents at bedside. NIV mask on. Const: COMMON NORMALS: patient oriented x3 and alert GENERAL APPEARANCE: cooperative ORIENTATION/CONSCIOUSNESS: Yes awake HENMT: COMMON NORMALS: oropharynx normal Resp: AUSCULTATION: rhonchi, wheezes and diminished lung sounds Cardio: COMMON NORMALS: regular rhythm, S1 normal heart sound present, S2 normal heart sound present and No murmurs present (Cardio) RATE: tachycardic RHYTHM: regular rhythm HEART SOUNDS: S1 normal heart sound present and S2 normal heart sound present GI: COMMON NORMALS: Normal to inspection, nondistended, normoactive bowel sounds present, Soft to palpation and non-tender PALPATION: Yes Soft to palpation Extremity: COMMON NORMALS: no joint enlargement and no pedal edema Neuro: COMMON NORMALS: patient oriented x3 and moves all extremities SENSORIUM/ORIENTATION: Yes alert Skin: COMMON NORMALS: no rashes or lesions noted GENERAL SKIN EXAM: no rashes or lesions noted OTHER: Resolved erythema on dorsal right foot. Persistent fissure plantar proximal right hallux. Due to coming plantar surface. Difficult to tell if any debris in the fissure. No drainage. Proximal left lower extremity round wound with crusted drainage. Data 05/10/22 05:03 05/10/22 05:03 Micro: Microbiology 05/09/22 19:05 Blood Culture - Preliminary Blood NEGATIVE TO DATE 05/09/22 19:00 Blood Culture - Preliminary Blood NEGATIVE TO DATE A&P Assessment and plan (1) Acute respiratory failure: He is doing slightly better. He is in negative balance. Hypoxia with improvement. He is breathing somewhat easier. Doing well on nasal cannula so far. Still having wheezing. Weaned off BiPAP. Suspected secondary to acute diastolic CHF, with noted elevated BNP, bilateral pleural effusions. Relative hypokinesia inferior wall on echo. No chest pain. Troponins mild elevation. Consider additional assessment with stress testing. Troponins so far mildly elevated without increasing trend. Received Lasix. Requiring BiPAP. Continue BiPAP, continue Lasix every 12 hours IV. Monitor and low. Weights. Reassess chemistry for electrolytes, renal function. Wean down to oxygen support when tolerating, RT to assess and treat. For now clear liquid diet. Switch to cardiac consistent carb once weaned off BiPAP. With bronchospastic component, wheezing, also rhonchi. May have infectious bronchitis. Declined COVID-19 PCR. Negative rapid COVID-19 panel, rapid influenza. He is a chronic smoker, unknown if has underlying COPD. Not bringing up phlegm. DuoNeb treatments, budesonide intervention, Mucinex. Flutter valve once able to. I-S. (2) Acute diastolic CHF (congestive heart failure): As above. (3) Bilateral pleural effusion: IV Lasix as above. Follow-up imaging for improvement. Follow-up chest x-ray. (4) Ground glass opacity present on imaging of lung: Suspect secondary to acute CHF. Follow-up chest x-ray. He is afebrile, without leukocytosis. Bacterial pneumonia suspicion is low. He has been having dry cough, however, does have wheezing. We will request reassessment with COVID PCR panel, rapid influenza. (5) Non-healing wound of left lower extremity: Last admission as per discussion with histotechnologist supervisor. He received MRI would not be helpful. CT ordered. Appears to have abscess proximal tibia. Additionally osteomyelitis and suspicion for likely hardware infection. Last culture with strep pyogenes a month ago. Obtain additional culture. For now start Zosyn. Appreciate orthopedic consultation with consideration of local treatment and long-term plans with regards to concerns of hardware infection. (6) Transaminitis: With untreated hepatitis C. Follow-up liver parameters. (7) Alkaline phosphatase elevation: With continued hepatitis C, possibly also with osteomyelitis left lower extremity. Follow-up liver parameters. Plan Resolved cellulitis to the right foot, but persistent fissure under proximal left hallux. Feet are covered in dried, difficult to see if there is any debris in the wound. No drainage. Clean feet, will add Santyl due to significant cornified tissue surrounding the fissure and he did not tolerate debridement last time. Poor adherence to medical treatments: States that he is here trying to make good and receive treatment. Last time ended up leaving AMA. He did not feel his antibiotic prescriptions last time and has not been taking his other medications. Dates that he has come around and wants to receive treatment. He lives by himself. He has had significant functional decline. Once able to move benefit from PT, OT assessment. We will request also CM consultation. He states he also needs a PCP. Elevated D-dimer, no PE CTA. Otherwise not presenting with any unilateral leg swelling to suggest DVT. Suspect may be related to his chronic infection. DVT prophylaxis. Smoking addiction: Encourage cessation. Discussed with him nicotine patch and lozenges which are ordered. Attestations Medical Necessity Statement*: Continue admission for assessment management of improving respiratory failure, acute CHF, bronchitis, left lower extremity abscess. Coding Level of Care Code Acute Gas Appliance Adjuster for [facility] Fwd Diagnoses Acute respiratory failure J96.00 Acute diastolic CHF (congestive heart failure) I50.31 Bilateral pleural effusion J90 Ground glass opacity present on imaging of lung R91.8 Non-healing wound of left lower extremity S81.802A Transaminitis R74.01 Alkaline phosphatase elevation R74.8
[2022-05-10] MEDS: piperacillin-tazobactam 3.375 GM in sodium chloride 0.9% (plus) 50 ML IV (20:28)
[2022-05-10 21:16] LABS: Glucose Point of Care 371 mg/dL (70-110)
[2022-05-10 22:48] LABS: Glucose Point of Care 375 mg/dL (70-110)
[2022-05-11] VITALS (26 sets, daily range): BP systolic 132–169; BP diastolic 87–104; PULSE 90–118; RESP 13–37; TEMP 36.5–37.6; O2SAT 77–100
[2022-05-11] MEDS: ipratropium-albuterol 3 mL Neb INHALATION ×4 (02:30→21:03)
[2022-05-11 04:04] LABS: Basophils % 0.2 %; Eosinophils # 0.1 10^3/uL (0.0-0.8); Eosinophils % 0.5 %; Hematocrit 38.6 % (42.0-52.0); Hemoglobin 12.6 g/dL (11.7-16.6); Lymphocytes # 2.5 10^3/uL (0.8-4.8); Lymphocytes % 22.7 %; Mean Corpuscular HGB Conc 32.6 g/dL (30.0-36.0); Mean Corpuscular Hemoglobin 31.7 pg (28.0-34.0); Mean Platelet Volume 10.8 fL (7.4-10.4); Monocytes # 0.8 10^3/uL (0.2-0.9); Monocytes % 7.3 %; Neutrophils # 7.62 10^3/uL (1.8-7.7); Neutrophils % 68.8 %; Nucleated Red Blood Cells % 0 %; Platelet Count 350 10^3/cmm (130-400); Red Blood Count 3.98 10^6/uL (4.1-5.3); Red Cell Distribution Width 14.6 % (12.1-15.1); White Blood Count 11.1 10^3/uL (4.0-10.0)
[2022-05-11] MEDS: FUROsemide 10 mg/mL SDV 10mL 60 MG IVP ×2 (04:16→16:59)
[2022-05-11] MEDS: piperacillin-tazobactam 3.375 GM in sodium chloride 0.9% (plus) 50 ML IV ×3 (04:16→19:42)
[2022-05-11 04:59] LABS: Alanine Aminotransferase 47 U/L (0-41); Albumin Level 2.8 g/dL (3.5-5.2); Alkaline Phosphatase 245 U/L (40-130); Anion Gap 14.2 (5-19); Aspartate Amino Transferase 64 U/L (0-40); Blood Urea Nitrogen 17 mg/dL (6-20); Calcium 8.3 mg/dL (8.5-10.5); Carbon Dioxide 27 mmol/L (22-29); Chloride 100 mmol/L (98-107); Globulin 4.8 g/dL (1.3-4.6); Glomerular Filtration Rate 206.7 mL/min (90-130); Glucose 162 mg/dL (65-115); Osmolality Calculated 291 mOsm/kg (285-295); Potassium 3.2 mmol/L (3.5-5.1); Sodium 138 mmol/L (136-145); Total Bilirubin 0.3 mg/dL (0.15-1.2); Total Protein 7.6 g/dL (6.6-8.7)
--- NOTE | 2022-05-11 06:00 | XRR_ITS ---
PROCEDURE INFORMATION: Exam: XR Chest Exam date and time: 05/11/2022 6:47 AM Age: 56 years old Clinical indication: Shortness of breath; Additional info: Hypoxia TECHNIQUE: Imaging protocol: Radiologic exam of the chest. Views: 1 view. COMPARISON: CR (CHEST, ) 05/09/2022 11:28 AM FINDINGS: Lungs: There are normal lung volumes. Decreased bilateral perihilar interstitial opacities are seen. Unchanged left basilar airspace opacities are seen. Slightly increased small left pleural effusion. Unchanged tiny right pleural effusion. Pleural spaces: No pneumothorax. Heart/Mediastinum: The heart size is unchanged at the upper limit of normal. There is a mildly tortuous thoracic aorta. The trachea is in the midline. Bones/joints: No acute abnormalities. Soft tissues: Multiple external densities are seen overlying the chest, limiting assessment. XR/XR chest 1V portable [id number] IMPRESSION: Decreased bilateral perihilar interstitial opacities. Unchanged left basilar airspace opacities. Slightly increased small left pleural effusion. Unchanged tiny right pleural effusion.
[2022-05-11] MEDS: vancomycin 1,250 MG/250 ML PIGGYBACK 250 MG IV ×3 (06:10→22:43)
[2022-05-11] MEDS: heparin 5,000 unit/mL INJ 1 mL 5000 UNIT SUBCUT ×2 (06:12→16:59)
[2022-05-11 06:27] LABS: Glucose Point of Care 216 mg/dL (70-110)
[2022-05-11] MEDS: budesonide 0.5 mg/2 mL Neb INHALATION ×2 (09:19→21:03)
[2022-05-11] MEDS: losartan 50 mg Tablet 25 MG PO (09:33)
[2022-05-11] MEDS: guaiFENesin 600 mg Tablet PO ×2 (09:33→16:58)
[2022-05-11] MEDS: ferrous gluconate 324 mg Tablet PO ×2 (09:33→16:58)
[2022-05-11] MEDS: aspirin 81 mg EC Tablet PO (09:33)
[2022-05-11] MEDS: metoprolol tartrate 25 mg Tablet PO ×2 (10:04→19:42)
--- NOTE | 2022-05-11 10:46 | P.PN_ITS ---
Subjective Subjective: Hospital course, labs appreciated. No acute events overnight. Patient laying comfortably in bed. Blood pressure is mildly elevated. Patient recognizes me from previous admission. States for himself at this time he is willing to continue and complete the treatment. Also states that this time he does not take his oral medication as an outpatient. States breathing is better. Currently on 2 L nasal cannula Vitals/I&O/Wt Last Vital Signs Temp 97.9 F 05/11/22 08:00 Pulse 93 05/11/22 09:19 Resp 20 H 05/11/22 09:19 BP 144/99 05/11/22 09:33 Pulse Ox 96 05/11/22 09:19 O2 Del Method 05/11/22 09:19 O2 Flow Rate 2 05/11/22 09:19 FiO2 30 05/11/22 02:00 05/10/22 05/11/22 05/11/22 22:59 06:59 14:59 Intake Total 100 / 580 870 / 1450 300 / 300 Output Total 1600 / 2900 725 / 725 Balance 100 / -720 -730 / -1450 -425 / -425 Weight last 48 hrs Weight 70.171 kg Weight 69.4 kg Weight 68.946 kg Physical Exam Narrative: Nasal cannula oxygen supplementation Const: COMMON NORMALS: patient oriented x3 and alert GENERAL APPEARANCE: cooperative ORIENTATION/CONSCIOUSNESS: Yes awake HENMT: COMMON NORMALS: oropharynx normal Resp: AUSCULTATION: rhonchi, wheezes and diminished lung sounds Cardio: COMMON NORMALS: regular rhythm, S1 normal heart sound present, S2 normal heart sound present and No murmurs present (Cardio) RATE: tachycardic RHYTHM: regular rhythm HEART SOUNDS: S1 normal heart sound present and S2 normal heart sound present GI: COMMON NORMALS: Normal to inspection, nondistended, normoactive bowel sounds present, Soft to palpation and non-tender PALPATION: Yes Soft to palpation Extremity: COMMON NORMALS: no joint enlargement and no pedal edema Neuro: COMMON NORMALS: patient oriented x3 and moves all extremities SENSORIUM/ORIENTATION: Yes alert Skin: COMMON NORMALS: no rashes or lesions noted GENERAL SKIN EXAM: no rashes or lesions noted OTHER: Resolved erythema on dorsal right foot. Persistent fissure plantar proximal right hallux. Due to coming plantar surface. Difficult to tell if any debris in the fissure. No drainage. Proximal left lower extremity round wound with crusted drainage. Data 05/11/22 03:50 05/11/22 03:50 Micro: Microbiology 05/09/22 19:05 Blood Culture - Preliminary Blood NEGATIVE TO DATE 05/09/22 19:00 Blood Culture - Preliminary Blood NEGATIVE TO DATE A&P Assessment and plan (1) Acute respiratory failure: Most likely secondary to acute diastolic CHF, with noted elevated BNP, bilateral pleural effusions. Echocardiogram done during this admission shows relative hypokinesia inferior wall which is new when EF 50%. No chest pain. Troponins mild elevation. COVID-19 rapid antigen and flu negative. Patient refused COVID-19 PCR. Oxygen supplementation keeping saturation over 88%. Continue with IV Lasix 60 milligrams twice daily. Fluid restriction up to 1500 cc. Strict input output charting. Daily weights. DuoNebs every 6 hour, budesonide twice daily. I-S, flutter valve. Out of bed to chair. Antibiotics for osteomyelitis would also help with pneumonia as CT scan showed bilateral groundglass opacities which could be secondary pulm edema also. Sputum culture when possible. 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 Last cultures concerning for strep pyogenes. Patient did not take outpatient antibiotics. Orthopedic consulted for further evaluation and management with possible hardwar e exploration and deep cultures. Patient will most likely need up to 6 weeks of IV antibiotics and possible chronic suppression. Patient is agreeable to 6 weeks of IV antibiotics now. Most likely will need placement to SNF for same. Patient is agreeable to that as well. MRSA positive recently. Add vancomycin. Continue with Zosyn. (3) Osteomyelitis: (4) Abscess: (5) Non-healing wound of left lower extremity: (6) Acute diastolic CHF (congestive heart failure): As above. (7) Ground glass opacity present on imaging of lung: Suspect secondary to acute CHF. Follow-up chest x-ray. He is afebrile, without leukocytosis. Bacterial pneumonia suspicion is low. He has been having dry cough, however, does have wheezing. We will request reassessment with COVID PCR panel, rapid influenza. (8) Transaminitis: With untreated hepatitis C. Follow-up liver parameters. (9) Alkaline phosphatase elevation: With continued hepatitis C, possibly also with osteomyelitis left lower extremity. Follow-up liver parameters. (10) Bilateral pleural effusion: Secondary to heart failure. Treatment as above. No acute need for thoracentesis. (11) Hepatitis C: Plan Poor adherence to medical treatments: States that he is here trying to make good and receive treatment. Last time ended up leaving AMA. He did not feel his ant ibiotic prescriptions last time and has not been taking his other medications. Dates that he has come around and wants to receive treatment. He lives by himself. He has had significant functional decline. Once able to move benefit from PT, OT assessment. We will request also CM consultation. He states he also needs a PCP. Elevated D-dimer, no PE CTA. Otherwise not presenting with any unilateral leg swelling to suggest DVT. Suspect may be related to his chronic infection. DVT prophylaxis. Hypertension: Goal blood pressure less than 140/90 mmhg. Add losartan 25 mg daily, metoprolol 25 mg twice daily. Will uptitrate as per blood pressure goals. Type 2 diabetes mellitus: Continue insulin sliding scale for now. Most likely will have to discharge on OHAs. Smoking addiction: Encourage cessation. Discussed with him nicotine patch and lozenges which are ordered. DNR/DNI. Carb consistent cardiac diet. Heparin 5000 every 12 hourly for DVT prophylaxis. Discharge planning: We will get physical therapy evaluation. Most likely patient will need to go to SNF to complete IV antibiotics and physical therapy. Patient is agreeable. Case management alerted. Attestations Medical Necessity Statement*: Requires further hospitalization for management of hypoxia secondary to diastolic heart failure, hardware infection and osteomyelitis Time Spent in Patient Care: Greater than 35 minutes Coding Level of Care Code Acute Pot Room Tapper for 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
[2022-05-11 11:21] LABS: Glucose Point of Care 224 mg/dL (70-110)
[2022-05-11] MEDS: insulin lispro 100 unit/1 mL SUBCUT ×3 (11:41→21:36)
--- NOTE | 2022-05-11 11:50 | PC.CHAP ---
Pastoral Care Encounter/Spiritual Assessment Type of Contact [] Declined stock fitter visit [] Patient/Family/Request visit [] Outpatient visit [] Follow-up visit [] Physician referral [] Code/Alert [x] Routine visit [] Staff referral [] Actively dying [x] Patient sleeping [] Family support [] [] Out of room [] Palliative care [] [] Receiving care in room [] Pre-surgical visit [] Trauma [] Long length of stay [] ICU visit [] Other: Relational/Emotional Strength [] Patient feels connected with others/family/visitors/staff [] Distress [] Loneliness/isolation [] Abandonment Spirituality of Patient [] Person of Moon [] Attends Christian of their Moon [] Believes in Prayer [] Reads Bible or Denominational materials [] There are Spiritual issues to be addressed Meal Grinder Tender Interventions [] Prayer [] Active listening [] Non-anxious presence [] Spiritual/emotional support [] Crisis/trauma care [] Spiritual counseling [] Bereavement support [] Provided bereavement packet [] Provided Bible/devotional materials [] Provided toy/stuffed animal, coloring book to patient or family member [] Provided Communion [] Anointing/[place] [] Salvation [] Completed spiritual assessment [] Other: Impact on Illness or Injury [] Angry [] Fearful [] Anxious [] Often cries [] Exhaustion [] Unable to work [] Unable to attend shinto [] Unable to walk/stand [] Unable to read [] Unable to drive [] Unable to eat/drink [] Unable to sleep [] Unable to be with family [] Patient intubated [] Other: Summary Time spent with patient
--- NOTE | 2022-05-11 14:32 | P.CONIM_ITS ---
Providers/Reason For Consult Consulting Physician/Specialty*: Mali Yen MD - Orthopedics Reason for Consult*: Infected left tibial nail with draining wound Requesting Physician: Dr. Brigitte Muñoz Attending Physician: Kash Ruff MD History of Present Illness History of Present Illness Leroy Olivo is a 56 year old male who is known to me from previous tibial fracture in 2019. The patient underwent open reduction internal fixation uneventfully. Postoperatively, he did well, but noted that he was bitten by a copperhead approximately a year ago. The patient presented to the hospital 1 month ago with significant cellulitis and infected right foot. At that time, he was noted to have drainage from the proximal screws in his left tibial nail. I was consulted at that time, but the patient left AMA prior to being seen. He has been noncompliant and has multiple medical comorbidities including hepatitis C, CHF, respiratory failure, diabetes, in addition to the bilateral lower extremity infections. I was consulted for evaluation of possible hardware removal. Review of Systems Const: Reports: body aches, fatigue and malaise; Denies: fever(s), chills or change in appetite Eyes: Denies: blurry vision or eye discomfort ENMT: Denies: throat pain or dental pain Card: Denies: chest pain, edema or pre-syncope Resp: Reports: dyspnea and non-productive cough; Denies: change in phlegm color or hemoptysis GI: Denies: abdominal pain, nausea, vomiting, diarrhea, constipation, hematochezia or melena : Denies: flank pain, difficulty urinating, dysuria, urinary frequency or hematuria Musc: Denies: neck pain, back pain, joint swelling or joint redness Skin/Breast: Denies: rash or new lesions Neuro: Denies: headache(s), numbness in extremities, weakness in extremities, dizziness, confusion or seizure-like activity Psych: Denies: depression Endo: Reports: tired all the time and cold intolerance Boy/Lymph: Denies: easy bruising All/Imm: Denies: urticaria, throat swelling or facial swelling Medications/Allergies Home Medications Medication Instructions Recorded Confirmed Last Taken Type No Known Home Medications 05/09/22 05/09/22 Unknown History Allergies Allergy/AdvReac Type Severity Reaction Status Date / Time No Known Allergies Allergy Verified 05/09/22 11:20 Current Medications Generic Name Dose Route Start Last Admin Trade Name Freq PRN Reason Stop Dose Admin Albuterol/Ipratropium 3 ml 05/09/22 20:00 05/11/22 14:31 Ipratropium-Albuterol 3 Ml Neb INHALATION 3 ml Q6H.RESP STEPHANIE Administration Aspirin 81 mg 05/11/22 09:00 05/11/22 09:33 Aspirin 81 Mg Ec Tablet PO 81 mg DAILY STEPHANIE Administration Budesonide 0.5 mg 05/09/22 20:00 05/11/22 09:19 Budesonide 0.5 Mg/2 Ml Neb INHALATION 0.5 mg BID.RESPIRATORY STEPHANIE Administration Ferrous Gluconate 324 mg 05/11/22 08:00 05/11/22 09:33 Ferrous Gluconate 324 Mg Tablet PO 324 mg BIDWM STEPHANIE Administration Furosemide 60 mg 05/10/22 04:00 05/11/22 04:16 Furosemide 10 Mg/Ml Sdv 10ml IVP 60 mg Q12H STEPHANIE Administration Guaifenesin 600 mg 05/09/22 18:39 05/11/22 09:33 Guaifenesin 600 Mg Tablet PO 600 mg BID STEPHANIE Administration Heparin Sodium (Porcine) 5,000 unit 05/09/22 18:39 05/11/22 06:12 Heparin 5,000 Unit/Ml Inj 1 Ml SUBCUT 5,000 unit Q12H STEPHANIE Administration Hydromorphone HCl 0.5 mg 05/09/22 19:08 05/09/22 23:47 Hydromorphone 1 Mg/Ml Inj 1 Ml IVP 0.5 mg Q4H PRN Administration SEVERE PAIN Piperacillin Sod/Tazobactam 50 mls @ 12.5 mls/hr 05/10/22 20:00 05/11/22 11:23 Sod 3.375 gm/ Sodium Chloride IV 12.5 mls/hr Q8H STEPHANIE Administration Protocol Vancomycin/PEG/NADA/Lysine/Water 1,250 mg in 250 mls @ 250 mls/hr 05/11/22 06:00 05/11/22 13:51 Vancocin IV 250 mls/hr Q8H STEPHANIE Administration Insulin Human Lispro 0 unit 05/09/22 18:39 05/11/22 11:41 Insulin Lispro 100 Unit/1 Ml SUBCUT 6 unit WM&BEDTIME STEPHANIE Administration Protocol Losartan Potassium 25 mg 05/11/22 09:00 05/11/22 09:33 Losartan 50 Mg Tablet PO 25 mg DAILY STEPHANIE Administration Metoprolol Tartrate 25 mg 05/11/22 09:00 05/11/22 10:04 Metoprolol Tartrate 25 Mg Tablet PO 25 mg BID@0900,2100 STEPHANIE Administration Nicotine 1 patch 05/09/22 18:39 05/10/22 18:31 Nicotine 21 Mg Patch TRANSDERMA Not Given Q24H STEPHANIE PFSH Acute PFSH: Medical History 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 Diabetes Diabetic peripheral neuropathy associated with type 2 diabetes mellitus Hepatitis C HTN (hypertension) Methamphetamine use Non-healing wound of left lower extremity Open tibial fracture Orthopedic hardware present Smoking Surgical History History of surgery on lower extremity Family History Other Crohn's disease Diabetes Social History Smoking and tobacco status: current every day smoker cigarettes Alcohol intake: current Alcohol intake frequency: holidays/special occasions only Lives independently: Yes Household members: none Marital status: 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 He seems comfortable, and has minimal complaints at the moment. Const: COMMON NORMALS: no acute distress, average body habitus, patient oriented x3 and alert GENERAL APPEARANCE: cooperative and comfortable ORIENTATION/CONSCIOUSNESS: Yes awake HENMT: COMMON NORMALS: normocephalic and atraumatic HEAD & SCALP: normocephalic and atraumatic Eye: GENERAL EYE: appearance normal, both eyes and all related structures Chest: COMMONS NORMALS: normal inspection of the chest Resp: COMMON NORMALS: normal respiratory effort EFFORT & INSPECTION: Yes able to speak in complete sentences and Yes symmetric chest movement Extremity: LEFT LOWER EXTREMITY: Yes lower leg (There is an area of obvious soft tissue inflammation over the anteromedial ) Left lower leg: Yes inspection (Abnormality is at the insertion site of the proximal screw), Yes palpation (No tenderness over the fracture site.) and Yes neurovascular exam (Calf is soft.) Neuro: COMMON NORMALS: patient oriented x3 SENSORIUM/ORIENTATION: Yes alert Psych: COMMON NORMALS: mental status grossly normal APPEARANCE: Yes grossly normal ATTITUDE: Yes calm and Yes engaged ATTENTION/CONCENTRATION: Yes attention grossly intact Skin: COMMON NORMALS: no rashes or lesions noted GENERAL SKIN EXAM: no rashes or lesions noted Data 05/11/22 03:50 05/11/22 03:50 Micro: Microbiology 05/09/22 19:05 Blood Culture - Preliminary Blood NEGATIVE TO DATE 05/09/22 19:00 Blood Culture - Preliminary Blood NEGATIVE TO DATE Other CT: My impression: Patient's left lower extremity CT is reviewed. There does appear to be healing at the fracture site with no evidence of nonunion. There is thickening of the skin with induration over the level of the 2 proximal screws. There is concern for an abscess as noted by radiology. The fracture does appear as noted to be healed, but the area demonstrates cortical thickening without bone destruction or osteomyelitis in the distal two thirds. There is concern in the proximal third with some cortical destruction of the anterior medial tibia at the proximal interlocking screw, but this remains unchanged. A&P Assessment and plan (1) Infected hardware in left lower extremity: This is a 56-year-old gentleman who is well-known to me from previous fracture and treatment with a left tibial intramedullary nail. Patient presented a month ago with complaints of infection in his opposite right foot, but although I was consulted, he left AMA prior to being seen. Patient returned with respiratory issues and cardiac issues over this past weekend. I was consulted to address the infected orthopedic hardware. The patient notes that he did have a copperhead bite to that area approximately a year ago, and this is when his problems with the infection in this area began. I discussed with the patient plans for hardware removal and probable IV treatments following this. He is in agreement to proceed. He mentions that no one is willing to help him, but I suggest to him that he needs to stay in the hospital and allow us to help him through the surgical procedures. Additionally, the patient has right foot issues which were present at his last visit. Although the cellulitis has resolved, he still has fissuring and this requires further debridement. I have discussed this with Dr. Kirkland and Dr. Hernandez, and Dr. Hernandez will see the patient in consultation. Qualifiers: Encounter type: initial encounter Qualified Code(s): T84.7XXA - Infection and inflammatory reaction due to other internal orthopedic prosthetic devices, implants and grafts, initial encounter (2) Orthopedic hardware present: (3) 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: Consult Attestations Medical Necessity Statement: Patient requires surgery for infected orthopedic hardware removal. Coding Level of Care Code Acute Psychopaedic Nurse for [facility]ulissa Diagnoses Infected hardware in left lower extremity T84.7XXA Encounter type: initial encounter Orthopedic hardware present Z97.8 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 L97.222
[2022-05-11] MEDS: nicotine 21 mg Patch 1 PATCH TRANSDERMA (16:57)
--- NOTE | 2022-05-11 17:12 | XR_ITS ---
WS: [id number] XR tibia fibula LT 2V [id number] REASON FOR EXAM: Fracture characterization FINDINGS: Intramedullary arturo fixation of previous oblique fracture of the midshaft of the left tibia. Surgical appliances and fracture fragments remain in proper position and alignment unchanged compared to 04/12/2022. Fracture site appears healed. There is increased lucency around the proximal and of the superior most locking screw. This is unchan ged compared to the previous examination of 04/12/2022. Based on the CT findings, 04/13/2022 and 2022, this would be of concern for osteomyelitis. XR/XR tibia fibula LT 2V [id number] IMPRESSION: Examination is unchanged compared to 04/12/2022 with abnormality related to the proximal most locking screw as above.
[2022-05-11 17:41] LABS: Glucose Point of Care 362 mg/dL (70-110)
--- NOTE | 2022-05-11 20:02 | PM.CONSULT ---
Providers/Reason For Consult Consulting Physician/Specialty*: Thelma ReddPEly-podiatry Reason for Consult*: Right hallux chronic wound Attending Physician: Kash Ruff MD History of Present Illness History of Present Illness Leroy Olivo is a 56 year old male who is currently admitted with infected left tibial nail. The patient underwent open reduction internal fixation of left tibial fracture by Dr. Yen in 2018. The patient healed this uneventfully. Last month, April 2022, the patient was admitted with right foot cellulitis stemming from plantar right hallux ulceration. During this admission he was noted to have drainage from a screw from the left tibial nail as well. Podiatry evaluated the patient and performed bedside debridement is much as the patient can tolerate. It was decided that further debridement in the operative setting would be more beneficial to the patient. Orthopedics was consulted during his last admission for hardware removal. The plan was going to be for formal debridement and washout of right hallux concomitantly with orthopedic intervention. The patient left AMA prior to evaluation or treatment from the orthopedic team. The patient has now returned to the hospital and has been admitted. Dr. Yen is planning to take patient to the operating room tomorrow 05/12/2022 for hardware removal. Podiatry was consulted to evaluate the right foot, specifically the right hallux wound as this was a source of cellulitis last month. The patient has not been attending to his right foot or left leg since he left AMA. Review of Systems General: Reports: 10 or more systems reviewed and unremarkable except in HPI and below Const: Denies: fever(s), chills, body aches or change in appetite Skin/Breast: Reports: non-healing lesions and lesions Neuro: Reports: numbness in extremities Medications/Allergies Home Medications Medication Instructions Recorded Confirmed Last Taken Type No Known Home Medications 05/09/22 05/09/22 Unknown History Allergies Allergy/AdvReac Type Severity Reaction Status Date / Time No Known Allergies Allergy Verified 05/09/22 11:20 Current Medications Generic Name Dose Route Start Last Admin Trade Name Freq PRN Reason Stop Dose Admin Albuterol/Ipratropium 3 ml 05/09/22 20:00 05/11/22 14:31 Ipratropium-Albuterol 3 Ml Neb INHALATION 3 ml Q6H.RESP STEPHANIE Administration Aspirin 81 mg 05/11/22 09:00 05/11/22 09:33 Aspirin 81 Mg Ec Tablet PO 81 mg DAILY STEPHANIE Administration Budesonide 0.5 mg 05/09/22 20:00 05/11/22 09:19 Budesonide 0.5 Mg/2 Ml Neb INHALATION 0.5 mg BID.RESPIRATORY STEPHANIE Administration Ferrous Gluconate 324 mg 05/11/22 08:00 05/11/22 16:58 Ferrous Gluconate 324 Mg Tablet PO 324 mg BIDWM STEPHANIE Administration Furosemide 60 mg 05/10/22 04:00 05/11/22 16:59 Furosemide 10 Mg/Ml Sdv 10ml IVP 60 mg Q12H STEPHANIE Administration Guaifenesin 600 mg 05/09/22 18:39 05/11/22 16:58 Guaifenesin 600 Mg Tablet PO 600 mg BID STEPHANIE Administration Heparin Sodium (Porcine) 5,000 unit 05/09/22 18:39 05/11/22 16:59 Heparin 5,000 Unit/Ml Inj 1 Ml SUBCUT 5,000 unit Q12H STEPHANIE Administration Hydromorphone HCl 0.5 mg 05/09/22 19:08 05/09/22 23:47 Hydromorphone 1 Mg/Ml Inj 1 Ml IVP 0.5 mg Q4H PRN Administration SEVERE PAIN Piperacillin Sod/Tazobactam 50 mls @ 12.5 mls/hr 05/10/22 20:00 05/11/22 19:42 Sod 3.375 gm/ Sodium Chloride IV 12.5 mls/hr Q8H STEPHANIE Administration Protocol Vancomycin/PEG/NADA/Lysine/Water 1,250 mg in 250 mls @ 250 mls/hr 05/11/22 06:00 05/11/22 17:23 Vancocin IV Infused Q8H STEPHANIE Infusion Insulin Human Lispro 0 unit 05/09/22 18:39 05/11/22 18:40 Insulin Lispro 100 Unit/1 Ml SUBCUT 12 unit WM&BEDTIME STEPHANIE Administration Protocol Losartan Potassium 25 mg 05/11/22 09:00 05/11/22 09:33 Losartan 50 Mg Tablet PO 25 mg DAILY STEPHANIE Administration Metoprolol Tartrate 25 mg 05/11/22 09:00 05/11/22 19:42 Metoprolol Tartrate 25 Mg Tablet PO 25 mg BID@0900,2100 STEPHANIE Administration Nicotine 1 patch 05/09/22 18:39 05/11/22 16:57 Nicotine 21 Mg Patch TRANSDERMA 1 patch Q24H STEPHANIE Administration PFSH Acute PFSH: Medical History 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 Diabetes Diabetic peripheral neuropathy associated with type 2 diabetes mellitus Hepatitis C HTN (hypertension) Methamphetamine use Non-healing wound of left lower extremity Open tibial fracture Orthopedic hardware present Smoking Surgical History History of surgery on lower extremity Family History Other Crohn's disease Diabetes Social History Smoking and tobacco status: current every day smoker cigarettes Alcohol intake: current Alcohol intake frequency: holidays/special occasions only Lives independently: Yes Household members: none Marital status: 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 Vitals/I&O/Wt Last Vital Signs Temp 97.9 F 05/11/22 16:00 Pulse 101 H 05/11/22 17:00 Resp 18 05/11/22 14:36 BP 147/87 05/11/22 17:00 Pulse Ox 97 05/11/22 17:00 O2 Del Method 05/11/22 14:36 O2 Flow Rate 2 05/11/22 14:36 FiO2 30 05/11/22 16:00 05/11/22 05/11/22 05/11/22 06:59 14:59 22:59 Intake Total 870 / 1450 300 / 300 300 / 600 Output Total 1600 / 2900 725 / 725 1325 / 2050 Balance -730 / -1450 -425 / -425 -1025 / -1450 Weight last 48 hrs Weight 154 lb 11.2 oz Weight 153 lb Physical Exam Narrative: GENERAL: A&O x 3 VASCULAR: DP/PT pulses palpable 2/4 with CFT intact, <3seconds to distal digits DERMATOLOGICAL: Visibly soiled feet bilaterally with elongated, thickened discolored nails with subungual debris. Right hallux shows plantar fissure at the level of the interphalangeal joint with thick overlying hyperkeratotic tissue. No active drainage, no underlying purulence, no surrounding erythema. Unable to assess depth secondary to pain with exam. MUSCULOSKELETAL: Pain with palpation of right hallux isolated to the plantar right hallux IPJ fissure. 5/5 muscle strength in all 4 quadrants of the lower extremity when tested against resistance NEUROLOGICAL: Neurological sensation to the affected foot and ankle is diminished through L4-S1 dermatomes via 10g SWMF, diminished sensation extends proximally to the level of the midfoot IMAGING: Post bedside debridement 3 views of right foot taken during last admission were reviewed by me which show soft tissue deficit consistent with right hallux fissure, no cortical erosions or signs of osteomyelitis. No subcutaneous emphysema noted. Small radiopaque granule noted in the lateral aspect of fissure consistent with likely foreign body. No fractures or dislocations noted. Data 05/11/22 03:50 05/11/22 03:50 Micro: Microbiology 05/09/22 19:05 Blood Culture - Preliminary Blood NEGATIVE TO DATE 05/09/22 19:00 Blood Culture - Preliminary Blood NEGATIVE TO DATE A&P Assessment and plan (1) Diabetic peripheral neuropathy associated with type 2 diabetes mellitus: (2) Chronic ulcer of right foot due to diabetes mellitus: (3) Pain of right foot: (4) Hepatitis C: (5) DM type 2 (diabetes mellitus, type 2): Plan -Right hallux plantar IPJ ulceration, currently stable but necessitating debridement that patient does not tolerate at bedside -Labs and vitals reviewed -WBC 11.1 T?97.9 HR?101 RR?18 -Diet: N.p.o. at midnight for procedure tomorrow with Dr. Yen followed by procedure with myself -Plan for right hallux wound debridement tomorrow 05/12/2022 -Weight bearing: Weightbearing as tolerated to right foot -Dressings: Open to air currently -Trend labs -Discharge plan: To be determined -Podiatry will continue to round on patient daily and provide recommendations Consult Attestations Medical Necessity Statement: See above Coding Level of Care Code Acute Ritual Circumciser for [facility] Diagnoses Diabetic peripheral neuropathy associated with type 2 diabetes mellitus E11.42 Chronic ulcer of right foot due to diabetes mellitus E11.621; L97.519 Pain of right foot M79.671 Hepatitis C B19.20 DM type 2 (diabetes mellitus, type 2) E11.9
[2022-05-11 21:09] LABS: Glucose Point of Care 146 mg/dL (70-110)
[2022-05-12] VITALS (24 sets, daily range): BP systolic 128–158; BP diastolic 85–114; PULSE 73–104; RESP 10–22; TEMP 36.2–37.3; O2SAT 92–99
[2022-05-12] MEDS: ipratropium-albuterol 3 mL Neb INHALATION ×2 (02:42→08:30)
[2022-05-12] MEDS: piperacillin-tazobactam 3.375 GM in sodium chloride 0.9% (plus) 50 ML IV ×2 (03:52→13:39)
[2022-05-12] MEDS: FUROsemide 10 mg/mL SDV 10mL 60 MG IVP (03:52)
[2022-05-12 04:22] LABS: Basophils % 0.3 %; Eosinophils # 0.1 10^3/uL (0.0-0.8); Eosinophils % 0.8 %; Hematocrit 39.5 % (42.0-52.0); Lymphocytes # 2.7 10^3/uL (0.8-4.8); Lymphocytes % 27.2 %; Mean Corpuscular HGB Conc 32.9 g/dL (30.0-36.0); Mean Corpuscular Hemoglobin 31.4 pg (28.0-34.0); Mean Corpuscular Volume 95.4 fl (80-94); Mean Platelet Volume 11.1 fL (7.4-10.4); Monocytes # 0.7 10^3/uL (0.2-0.9); Neutrophils # 6.29 10^3/uL (1.8-7.7); Nucleated Red Blood Cells % 0 %; Platelet Count 347 10^3/cmm (130-400); Red Blood Count 4.14 10^6/uL (4.1-5.3); Red Cell Distribution Width 14.4 % (12.1-15.1); White Blood Count 9.8 10^3/uL (4.0-10.0)
[2022-05-12 04:46] LABS: Chloride 100 mmol/L (98-107); Potassium 3.3 mmol/L (3.5-5.1); Sodium 140 mmol/L (136-145)
[2022-05-12 05:05] LABS: Alanine Aminotransferase 39 U/L (0-41); Albumin Level 2.7 g/dL (3.5-5.2); Alkaline Phosphatase 218 U/L (40-130); Anion Gap 15.3 (5-19); Aspartate Amino Transferase 53 U/L (0-40); Blood Urea Nitrogen 16 mg/dL (6-20); Calcium 8.7 mg/dL (8.5-10.5); Carbon Dioxide 28 mmol/L (22-29); Globulin 4.7 g/dL (1.3-4.6); Glomerular Filtration Rate 140.2 mL/min (90-130); Glucose 293 mg/dL (65-115); Osmolality Calculated 302 mOsm/kg (285-295); Total Bilirubin 0.2 mg/dL (0.15-1.2); Total Protein 7.4 g/dL (6.6-8.7)
[2022-05-12] MEDS: heparin 5,000 unit/mL INJ 1 mL 5000 UNIT SUBCUT (05:42)
[2022-05-12 06:30] LABS: Vancomycin Trough 15.8 ug/mL (10-15)
[2022-05-12] MEDS: potassium chloride ER 20 mEq Tablet 40 MEQ PO (06:39)
[2022-05-12 06:57] LABS: Glucose Point of Care 331 mg/dL (70-110)
[2022-05-12] MEDS: budesonide 0.5 mg/2 mL Neb INHALATION (08:30)
[2022-05-12] MEDS: metoprolol tartrate 25 mg Tablet PO (08:40)
[2022-05-12] MEDS: losartan 50 mg Tablet 25 MG PO (08:40)
[2022-05-12] MEDS: insulin lispro 100 unit/1 mL SUBCUT (08:41)
[2022-05-12] MEDS: vancomycin 1,250 MG/250 ML PIGGYBACK 200 MG IV (08:42)
--- NOTE | 2022-05-12 11:20 | PM.PN ---
Subjective Subjective: No acute events overnight. Patient has remained hemodynamically stable and afebrile. Today morning on examination patient standing up in the room and walking around on room air without any difficulty in breathing. Patient seems jovial and pleasant. Awaiting OR today. Vitals/I&O/Wt Last Vital Signs Temp 97.7 F 05/12/22 08:00 Pulse 97 05/12/22 08:31 Resp 16 05/12/22 08:31 BP 153/92 05/12/22 08:00 Pulse Ox 94 05/12/22 08:31 O2 Del Method 05/12/22 08:31 O2 Flow Rate 2 05/12/22 02:47 FiO2 30 05/11/22 21:12 05/11/22 05/12/22 05/12/22 22:59 06:59 14:59 Intake Total 339.583 / 639.583 260.417 / 900.000 300 / 300 Output Total 1325 / 2050 1900 / 3950 Balance -985.417 / -1410.417 -1639.583 / -3050.000 300 / 300 Weight last 48 hrs Weight 67.268 kg Weight 70.171 kg Physical Exam Narrative: Nasal cannula oxygen supplementation Const: COMMON NORMALS: patient oriented x3 and alert GENERAL APPEARANCE: cooperative ORIENTATION/CONSCIOUSNESS: Yes awake HENMT: COMMON NORMALS: oropharynx normal Resp: AUSCULTATION: rhonchi, wheezes and diminished lung sounds Cardio: COMMON NORMALS: regular rhythm, S1 normal heart sound present, S2 normal heart sound present and No murmurs present (Cardio) RATE: tachycardic RHYTHM: regular rhythm HEART SOUNDS: S1 normal heart sound present and S2 normal heart sound present GI: COMMON NORMALS: Normal to inspection, nondistended, normoactive bowel sounds present, Soft to palpation and non-tender PALPATION: Yes Soft to palpation Extremity: COMMON NORMALS: no joint enlargement and no pedal edema Neuro: COMMON NORMALS: patient oriented x3 and moves all extremities SENSORIUM/ORIENTATION: Yes alert Skin: COMMON NORMALS: no rashes or lesions noted GENERAL SKIN EXAM: no rashes or lesions noted OTHER: Resolved erythema on dorsal right foot. Persistent fissure plantar proximal right hallux. Due to coming plantar surface. Difficult to tell if any debris in the fissure. No drainage. Proximal left lower extremity round wound with crusted drainage. Data 05/12/22 03:17 05/12/22 03:17 A&P Assessment and plan (1) Acute respiratory failure: Most likely secondary to acute diastolic CHF, with noted elevated BNP, bilateral pleural effusions. Echocardiogram done during this admission shows relative hypokinesia inferior wall which is new when EF 50%. No chest pain. Troponins mild elevation. COVID-19 rapid antigen and flu negative. Patient refused COVID-19 PCR. Oxygen supplementation keeping saturation over 88%. Continue with IV Lasix 60 milligrams twice daily. Fluid restriction up to 1500 cc. Strict input output charting. Daily weights. DuoNebs every 6 hour, budesonide twice daily. I-S, flutter valve. Out of bed to chair. Antibiotics for osteomyelitis would also help with pneumonia as CT scan showed bilateral groundglass opacities which could be secondary pulm edema also. Sputum culture when possible. 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 Last cultures concerning for strep pyogenes. Patient did not take outpatient antibiotics. Orthopedic consulted for further evaluation and management with possible hardware exploration and deep cultures. Patient will most likely need up to 6 weeks of IV antibiotics and possible chronic suppression. Patient is agreeable to 6 weeks of IV antibiotics now. Most likely will need placement to SNF for same. Patient is agreeable to that as well. MRSA positive recently. Add vancomycin. Continue with Zosyn. Qualifiers: Encounter type: initial encounter Qualified Code(s): T84.7XXA - Infection and inflammatory reaction due to other internal orthopedic prosthetic devices, implants and grafts, initial encounter (3) Osteomyelitis: (4) Abscess: (5) Non-healing wound of left lower extremity: (6) Acute diastolic CHF (congestive heart failure): As above. (7) Ground glass opacity present on imaging of lung: Suspect secondary to acute CHF. Follow-up chest x-ray. He is afebrile, without leukocytosis. Bacterial pneumonia suspicion is low. He has been having dry cough, however, does have wheezing. We will request reassessment with COVID PCR panel, rapid influenza. (8) Transaminitis: With untreated hepatitis C. Follow-up liver parameters. (9) Alkaline phosphatase elevation: With continued hepatitis C, possibly also with osteomyelitis left lower extremity. Follow-up liver parameters. (10) Bilateral pleural effusion: Secondary to heart failure. Treatment as above. No acute need for thoracentesis. (11) Hepatitis C: Plan Poor adherence to medical treatments: States that he is here trying to make good and receive treatment. Last time ended up leaving AMA. He did not feel his antibiotic prescriptions last time and has not been taking his other medications. Dates that he has come around and wants to receive treatment. He lives by himself. He has had significant functional decline. Once able to move benefit from PT, OT assessment. We will request also CM consultation. He states he also needs a PCP. Elevated D-dimer, no PE CTA. Otherwise not presenting with any unilateral leg swelling to suggest DVT. Suspect may be related to his chronic infection. DVT prophylaxis. Hypertension: Goal blood pressure less than 140/90 mmhg. Add losartan 25 mg daily, metoprolol 25 mg twice daily. Will uptitrate as per blood pressure goals. Type 2 diabetes mellitus: Continue insulin sliding scale for now. Most likely will have to discharge on OHAs. Smoking addiction: Encourage cessation. Discussed with him nicotine patch and lozenges which are ordered. Plan for the day: Switch from IV Lasix to oral 40 mg daily. Start on glargine 10 units at bedtime. Increase insulin sliding scale protocol to high-dose. Continue with losartan and metoprolol at current dose. Will uptitrate as per goals. Leukocytosis has resolved since adding vancomycin. Continue with vancomycin and Zosyn. Follow-up Vanco trough levels. Target vancomycin trough levels more than 15. Plan for the OR today. We will follow up with over cultures. N.p.o. for now. DNR/DNI. Carb consistent cardiac diet. Heparin 5000 every 12 hourly for DVT prophylaxis. Discharge planning: We will get physical therapy evaluation. Most likely patient will need to go to SNF to complete IV antibiotics and physical therapy. Patient is agreeable. Case management alerted. Attestations Medical Necessity Statement*: Requires further hospitalization for management of infected hardware and lower limb, osteomyelitis, hypoxic respiratory failure secondary to diastolic heart failure Coding Level of Care Code Acute Medical Director Occupational Health for [facility] Diagnoses Acute respiratory failure J96.00 Infected hardware in left lower extremity T84.7XXA Encounter type: initial encounter Osteomyelitis M86.9 Abscess L02.91 Non-healing wound of left lower extremity S81.802A Acute diastolic CHF (congestive heart failure) I50.31 Ground glass opacity present on imaging of lung R91.8 Transaminitis R74.01 Alkaline phosphatase elevation R74.8 Bilateral pleural effusion J90 Hepatitis C B19.20
[2022-05-12 11:37] LABS: Glucose Point of Care 132 mg/dL (70-110)
[2022-05-12] MEDS: sodium chloride 0.9% 1,000 ML 30 ML IV (15:04)
[2022-05-12] MEDS: CELEcoxib 200 mg Capsule 400 MG PO (15:04)
[2022-05-12] MEDS: acetaminophen 1,000 MG/100 ML PIGGYBACK 400 MG IV (15:04)
[2022-05-12 15:11] LABS: Glucose Point of Care 160 mg/dL (70-110)
--- NOTE | 2022-05-12 16:08 | ANES.PREANE2 ---
Pre-Anesthetic Assessment Height/Weight: Height 1.7 m Weight 67.268 kg Temp Pulse Resp BP Pulse Ox O2 Del Method O2 Flow Rate 98.2 F 94 16 134/89 92 2 05/12/22 15:08 05/12/22 15:08 05/12/22 15:08 05/12/22 15:08 05/12/22 15:08 05/12/22 15:08 05/12/22 12:00 FiO2 30 05/11/22 21:12 Preop Diagnosis: Infected hardware left lower extremity Operation Date: 05/12/22 13:20 Proposed Procedures p Hardware Removal IM Tibial Nail(Left) - Mali Yen MD s Debridement(Right) - Evan Hernandez DPM Familial anesthetic complications: None Last intake: Intake Last Liquid Date 05/11/22 Last Liquid Time 23:45 Last Solid Date 05/11/22 Last Solid Time 23:45 Social Tobacco and No alcohol Exam alert, oriented x 3, clear to auscultation bilaterally and regular rate & rhythm Airway Mallampati: Class III Dentition: chipped Pulmonary Pleural effusion CV/HEM Atrial Fibrillation, Congestive Heart Failure and Hypertension Hepatic Hepatitis C Metabolic Diabetes Mellitus Anesthetic Plan ASA status: 4 Anesthesia: General Risk of > 500 ml blood loss (7ml/kg in children): No Medications/Allergies Home Medications Medication Instructions Recorded Confirmed Last Taken Type No Known Home Medications 05/09/22 05/09/22 Unknown History Allergies Allergy/AdvReac Type Severity Reaction Status Date / Time No Known Allergies Allergy Verified 05/09/22 11:20 Current Medications Generic Name Dose Route Start Last Admin Trade Name Freq PRN Reason Stop Dose Admin Albuterol/Ipratropium 3 ml 05/09/22 20:00 05/12/22 14:45 Ipratropium-Albuterol 3 Ml Neb INHALATION Not Given Q6H.RESP STEPHANIE Aspirin 81 mg 05/11/22 09:00 05/12/22 10:47 Aspirin 81 Mg Ec Tablet PO Not Given DAILY STEPHANIE Budesonide 0.5 mg 05/09/22 20:00 05/12/22 08:30 Budesonide 0.5 Mg/2 Ml Neb INHALATION 0.5 mg BID.RESPIRATORY STEPHANIE Administration Ferrous Gluconate 324 mg 05/11/22 08:00 05/12/22 08:41 Ferrous Gluconate 324 Mg Tablet PO Not Given BIDWM STEPHANIE Furosemide 40 mg 05/12/22 08:00 05/12/22 09:23 Furosemide 40 Mg Tablet PO Not Given DAILY@0800 [facility] Guaifenesin 600 mg 05/09/22 18:39 05/12/22 10:47 Guaifenesin 600 Mg Tablet PO Not Given BID [facility] Heparin Sodium (Porcine) 5,000 unit 05/09/22 18:39 05/12/22 05:42 Heparin 5,000 Unit/Ml Inj 1 Ml SUBCUT 5,000 unit Q12H STEPHANIE Administration Hydromorphone HCl 0.5 mg 05/09/22 19:08 05/09/22 23:47 Hydromorphone 1 Mg/Ml Inj 1 Ml IVP 0.5 mg Q4H PRN Administration SEVERE PAIN Piperacillin Sod/Tazobactam 50 mls @ 12.5 mls/hr 05/10/22 20:00 05/12/22 13:39 Sod 3.375 gm/ Sodium Chloride IV 12.5 mls/hr Q8H STEPHANIE Administration Protocol Vancomycin/PEG/NADA/Lysine/Water 1,250 mg in 250 mls @ 250 mls/hr 05/11/22 06:00 05/12/22 10:47 Vancocin IV Infused Q8H STEPHANIE Infusion Sodium Chloride 1,000 mls @ 30 mls/hr 05/12/22 15:00 05/12/22 15:04 Sodium Chloride 0.9% IV 05/13/22 14:59 30 mls/hr .Q24H STEPHANIE Administration Insulin Human Lispro 0 unit 05/09/22 18:39 05/12/22 13:01 Insulin Lispro 100 Unit/1 Ml SUBCUT Not Given WM&BEDTIME [facility] Protocol Losartan Potassium 25 mg 05/11/22 09:00 05/12/22 08:40 Losartan 50 Mg Tablet PO 25 mg DAILY STEPHANIE Administration Metoprolol Tartrate 25 mg 05/11/22 09:00 05/12/22 08:40 Metoprolol Tartrate 25 Mg Tablet PO 25 mg BID@0900,2100 [facility] Administration Nicotine 1 patch 05/09/22 18:39 05/11/22 16:57 Nicotine 21 Mg Patch TRANSDERMA 1 patch Q24H STEPHANIE Administration PFSH Anesthesia Medical History 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 Diabetes Diabetic peripheral neuropathy associated with type 2 diabetes mellitus Hepatitis C HTN (hypertension) Methamphetamine use Non-healing wound of left lower extremity Open tibial fracture Orthopedic hardware present Smoking Surgical History History of surgery on lower extremity Family History Other Crohn's disease Diabetes Social History Smoking and tobacco status: current every day smoker cigarettes Alcohol intake: current Alcohol intake frequency: holidays/special occasions only Lives independently: Yes Household members: none Marital status: 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 Data Anesthesia 05/12/22 03:17 05/12/22 03:17 Short CBC 05/11/22 05/12/22 Range/Units 03:50 03:17 WBC 11.1 H 9.8 (4.0-10.0) 10^3/uL Hgb 12.6 13.0 (11.7-16.6) g/dL Hct 38.6 L 39.5 L (42.0-52.0) % MCV 97.0 H 95.4 H (80-94) fl Plt Count 350 347 (130-400) 10^3/cmm Neut % (Auto) 68.8 64.0 % Neut # (Auto) 7.62 6.29 (1.8-7.7) 10^3/uL BMP 05/11/22 05/12/22 03:50 03:17 Sodium 138 140 Potassium 3.2 L 3.3 L Chloride 100 100 Carbon Dioxide 27 28 BUN 17 16 Creatinine 0.5 L 0.7 Glucose 162 H 293 H Calcium 8.3 L 8.7 Liver Function 05/11/22 05/12/22 Range/Units 03:50 03:17 Total Bilirubin 0.3 0.2 (0.15-1.2) mg/dL AST 64 H 53 H (0-40) U/L ALT 47 H 39 (0-41) U/L Alkaline Phosphatase 245 H 218 H (40-130) U/L Albumin 2.8 L 2.7 L (3.5-5.2) g/dL Cardiac Studies: Echocardiogram 04/13/22 Echocardiogram Limited Views 05/09/22
--- NOTE | 2022-05-12 18:25 | P.HPUD_ITS ---
Surgery/Procedure H&P Update DATE OF PROCEDURE: May 12, 2022 DATE H&P PERFORMED: 05/09/22 H&P UPDATE INFORMATION: I have reviewed H&P completed within last 30 days, I have examined patient prior to procedure, No changes to prior documentation and H&P is in [facility] EMR on date indicated PREOP DIAGNOSIS: Infected hardware left lower extremity PLANNED PROCEDURE: Operation Date: 05/12/22 13:20 Proposed Procedures p Hardware Removal IM Tibial Nail(Left) - Mali Yen MD s Debridement(Right) - Evan Hernandez DPM Related Problem List Diagnoses (1) Infected hardware in left lower extremity: Qualifiers: Encounter type: initial encounter Qualified Code(s): T84.7XXA - Infection and inflammatory reaction due to other internal orthopedic prosthetic devices, implants and grafts, initial encounter
[2022-05-12] MEDS: vancomycin 1,250 MG/250 ML PIGGYBACK 250 MG IV (18:56)
[2022-05-12] MEDS: ceFAZolin 2,000 mg SDV 1000 MG IRRIGATION (20:36)
--- NOTE | 2022-05-12 20:40 | SUR.OPER ---
2039 UPDATED FAMILY IN WAITING AREA
--- NOTE | 2022-05-12 21:11 | P.OP_ITS ---
Operative Report Date of procedure: May 12, 2022 Pre-op diagnosis: Preop Diagnosis neuropathic ulcer right hallux Post-op diagnosis: Same Post-op findings: Full-thickness ulceration plantar aspect right hallux. No tracking, no undermining no underlying abscess. No probe to bone. Procedure done: Right hallux wound excisional debridement down to subcutaneous tissue CPT 05708 Surgeon: Thelma ReddPEly Estimated blood loss: Less than 3 cc Complications: None Findings: See above Procedure: Patient is a 56-year-old male that has a history of chronic ulceration plantar aspect right hallux, infected left intramedullary tibial nail, hep C positive. The patient has had the aforementioned chief complaints for some time. Due to the patient's noncompliance is chronic ulceration to the plantar aspect of the right hallux has worsened with time to the point that he was admitted to the hospital in April 2022 for right foot cellulitis stemming from plantar ulceration. Radiographs from prior admission showed foreign bodies in the plantar aspect of the right hallux. Attempted bedside debridement was performed which the patient did not tolerate. The plan during this admission was going to be to take him to the operating room for formal debridement and washout. During previous admission he was also found to have infected left tibial intramedullary nail. Orthopedics was consulted and the plan was going to be removal of the nail and hardware as well as debridement of the wound. The patient left AMA prior to receiving treatment. The patient recently returned to the hospital with worsening infection of the left tibial nail secondary to his noncompliance. Podiatry was consulted to assess and treat the right hallux wound as well. The extent of overlying hyperkeratotic tissue hides the underlying ulceration and prevents ability to assess severity of wound. This necessitates wound debridement which patient does not tolerate at bedside. The patient has been NPO since midnight. The history has been reviewed and the history and physical is current. The signed consent was confirmed and placed in the patient chart. Patient imaging has been reviewed and is consistent with the diagnosis. Under mild sedation, the patient was brought into the operating room and placed on the table in the supine position. IV antibiotics were given by the anesthesia team as preoperative surgical prophylaxis. General sedation was then performed by the anesthesia team. The patient underwent left tibial hardware removal by Dr. Yen. After the case, with the patient under anesthesia in supine on the operative table the right foot was prepped with chlorhexidine and a second timeout was performed for the procedure. After prep, the following procedure was then performed Attention was directed to the plantar aspect of the right hallux where a significant buildup of hyperkeratotic tissue was noted overlying the interphalangeal joint. Using a #15 blade this hyperkeratotic lesion was pared down to reveal an underlying full-thickness ulceration. Excisional debridement is carried down to the level of subcutaneous tissue using #15 blade removing hyperkeratotic tissue and fibrotic tissue. The underlying full-thickness ulceration measured 1.5 cm circumferentially with 100% granular base. The wound edges were assessed and there was no undermining or tracking noted. Negative probe to bone. Negative purulence negative underlying fluctuance or signs of deep space abscess. The wound after debridement was noted to have a healthy bleeding viable wound bed. The site was irrigated with saline before the wound was dressed with Betadine wet-to-dry dressing which consisted of Betadine soaked 4 x 4 gauze, dry 4 x 4 gauze, Coban. The patient tolerated the procedure and anesthesia well and without complicatio n. The patient was transported from the operating room to the recovery room with vital signs stable and vascular status intact to all digits of the right foot. The patient will return to the floor. Podiatry will round on the patient tomorrow morning and provide further recommendations regarding discharge from podiatry standpoint.
[2022-05-12] MEDS: fentaNYL 50 mcg/mL INJ 2mL IVP (21:19)
--- NOTE | 2022-05-12 21:24 | XRR_ITS ---
PROCEDURE INFORMATION: Exam: XR Left Tibia and Fibula Exam date and time: 05/12/2022 9:29 PM Age: 56 years old Clinical indication: Pain; Other: Post op; Prior surgery; Surgery date: 6+ months; Surgery type: Hardware placement; Patient HX: Today removal of hardware; Additional info: Following hardware removal TECHNIQUE: Imaging protocol: Radiologic exam of the Left tibia and fibula. Views: 2 views. COMPARISON: CR (LOW EXM, ) 05/11/2022 5:17 PM FINDINGS: Bones/joints: Removal of the intramedullary arturo and screw fusion hardware in the left tibia since the previous study. No acute osseous injury. Alignment is near anatomic. Unchanged cortical thickening of the proximal tibia. Soft tissues: Skin norm are now present. Minimal soft tissue gas from surgery. XR/XR tibia fibula LT 2V 11041 IMPRESSION: 1. Operative removal of the tibial fusion hardware since previous. 2. No other changes.
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
--- NOTE | 2022-05-12 21:45 | ANE.PACU2 ---
Inpatient post-anesthesia follow up: Airway intact: Yes Vital signs: Temperature 98.5 F Pulse Rate 102 Respiratory Rate 18 Blood Pressure 118/81 Pulse Oximetry 97 Oxygen Delivery Me thod Nasal Cannula Oxygen Flow Rate 3 Fraction of Inspir ed Oxygen 30 Hydration adequate: Yes Nausea and vomiting: No Pain level: 2 Mental status: Baseline
[2022-05-12] MEDS: HYDROmorphone 1 mg/mL INJ 1 mL 0.5 MG IVP (23:23)
[2022-05-13] VITALS (13 sets, daily range): BP systolic 100–127; BP diastolic 69–81; PULSE 76–106; RESP 12–23; TEMP 36.4–36.9; O2SAT 90–97
[2022-05-13] MEDS: ipratropium-albuterol 3 mL Neb INHALATION ×2 (02:25→08:04)
[2022-05-13] MEDS: piperacillin-tazobactam 3.375 GM in sodium chloride 0.9% (plus) 50 ML IV ×3 (04:10→19:51)
[2022-05-13] MEDS: HYDROmorphone 1 mg/mL INJ 1 mL 0.5 MG IVP ×4 (04:10→23:18)
[2022-05-13 05:50] LABS: Basophils % 0.1 %; Hematocrit 43.2 % (42.0-52.0); Lymphocytes # 0.9 10^3/uL (0.8-4.8); Lymphocytes % 5.7 %; Mean Corpuscular HGB Conc 32.4 g/dL (30.0-36.0); Mean Corpuscular Hemoglobin 30.8 pg (28.0-34.0); Mean Corpuscular Volume 95.2 fl (80-94); Monocytes # 0.7 10^3/uL (0.2-0.9); Monocytes % 4.5 %; Neutrophils # 13.95 10^3/uL (1.8-7.7); Neutrophils % 89.3 %; Nucleated Red Blood Cells % 0 %; Platelet Count 401 10^3/cmm (130-400); Red Blood Count 4.54 10^6/uL (4.1-5.3); Red Cell Distribution Width 14.5 % (12.1-15.1); White Blood Count 15.6 10^3/uL (4.0-10.0)
[2022-05-13] MEDS: vancomycin 1,250 MG/250 ML PIGGYBACK 250 MG IV ×3 (05:53→21:54)
[2022-05-13 06:16] LABS: Vancomycin Trough 16.8 ug/mL (10-15)
[2022-05-13 06:18] LABS: Alanine Aminotransferase 34 U/L (0-41); Alkaline Phosphatase 199 U/L (40-130); Anion Gap 13.1 (5-19); Aspartate Amino Transferase 35 U/L (0-40); Blood Urea Nitrogen 21 mg/dL (6-20); Calcium 8.3 mg/dL (8.5-10.5); Carbon Dioxide 27 mmol/L (22-29); Chloride 99 mmol/L (98-107); Globulin 5.1 g/dL (1.3-4.6); Glomerular Filtration Rate 120.1 mL/min (90-130); Glucose 391 mg/dL (65-115); Osmolality Calculated 299 mOsm/kg (285-295); Potassium 4.1 mmol/L (3.5-5.1); Sodium 135 mmol/L (136-145); Total Bilirubin 0.5 mg/dL (0.15-1.2); Total Protein 8.1 g/dL (6.6-8.7)
[2022-05-13 06:56] LABS: Glucose Point of Care 408 mg/dL (70-110)
[2022-05-13] MEDS: heparin 5,000 unit/mL INJ 1 mL 5000 UNIT SUBCUT ×2 (07:01→17:20)
--- NOTE | 2022-05-13 07:37 | PM.PN ---
Subjective Subjective: Patient seen at bedside this morning resting comfortably. Patient states that pain from his right foot is well controlled. Denies any overnight events. Denies any constitutional symptoms. Vitals/I&O/Wt Last Vital Signs Temp 97.6 F 05/13/22 04:00 Pulse 106 H 05/13/22 04:00 Resp 17 05/13/22 04:10 BP 127/80 05/13/22 04:00 Pulse Ox 92 05/13/22 04:00 O2 Del Method 05/13/22 04:00 O2 Flow Rate 3 05/13/22 04:00 FiO2 30 05/11/22 21:12 05/12/22 05/13/22 05/13/22 22:59 06:59 14:59 Intake Total 1200 / 1500 480 / 1980 250 / 250 Output Total 260 / 260 Balance 940 / 1240 480 / 1720 250 / 250 Weight last 48 hrs Weight 149 lb 2 oz Weight 148 lb 4.8 oz Physical Exam Narrative: GENERAL: A&O x 3 VASCULAR: DP/PT pulses palpable 2/4 with CFT intact, <3seconds to distal digits DERMATOLOGICAL: Surgical dressing to right foot clean, dry, intact with no strikethrough MUSCULOSKELETAL: Pain with palpation of right hallux isolated to the plantar right hallux IPJ fissure. 5/5 muscle strength in all 4 quadrants of the lower extremity when tested against resistance NEUROLOGICAL: Neurological sensation to the affected foot and ankle is diminished through L4-S1 dermatomes via 10g SWMF, diminished sensation extends proximally to the level of the midfoot Data 05/13/22 05:04 05/13/22 05:04 A&P Assessment and plan (1) Diabetic peripheral neuropathy associated with type 2 diabetes mellitus: (2) Chronic ulcer of right foot due to diabetes mellitus: (3) Pain of right foot: (4) Hepatitis C: (5) DM type 2 (diabetes mellitus, type 2): Plan -S/p right hallux wound debridement DOS: 05/12/2022 -Labs and vitals reviewed -WBC 15.6 T?97.6 HR?106 RR?17 -Diet: Okay for diet from podiatry standpoint. No further surgical intervention by podiatry during this admission -Weight bearing: Weightbearing as tolerated to right foot -Dressings: Betadine wet-to-dry surgical dressing intact -Trend labs -Discharge plan: Patient is okay to discharge from a podiatry standpoint. Recommend case management consultation as patient will need referral to wound care center for right hallux ulceration. Patient will also need dressing supplies in the form of Betadine, 4 x 4 gauze, Coban. Patient is to perform daily dressing changes after discharge from hospital. -Podiatry will continue to round on patient daily and provide recommendations Attestations Medical Necessity Statement*: See above Coding Level of Care Code Acute Volunteer Services Assistant for g Fwd Diagnoses Diabetic peripheral neuropathy associated with type 2 diabetes mellitus E11.42 Chronic ulcer of right foot due to diabetes mellitus E11.621; L97.519 Pain of right foot M79.671 Hepatitis C B19.20 DM type 2 (diabetes mellitus, type 2) E11.9
[2022-05-13] MEDS: budesonide 0.5 mg/2 mL Neb INHALATION (08:04)
[2022-05-13] MEDS: guaiFENesin 600 mg Tablet PO ×2 (08:37→17:20)
[2022-05-13] MEDS: ferrous gluconate 324 mg Tablet PO ×2 (08:37→17:20)
[2022-05-13] MEDS: metoprolol tartrate 25 mg Tablet PO ×2 (08:38→21:53)
[2022-05-13] MEDS: insulin lispro 100 unit/1 mL SUBCUT ×4 (08:38→21:52)
--- NOTE | 2022-05-13 10:07 | XR_ITS ---
WS: [id number] XR chest 1V portable [id number] REASON FOR EXAM: Post PICC insertion FINDINGS: A right arm PICC line has been placed. The tip is in the superior vena cava at the level of the miryam a. Advancement of approximately 2 more centimeters would be optimal positioning. XR/XR chest 1V portable [id number] IMPRESSION: Right arm PICC line placement as above. Position of the PICC line and recommendation for 2 cm advancement was given ove r the phone to the mri technologist who understood and will relay informa tion to PICC line nurse. Time 1135.
--- NOTE | 2022-05-13 12:08 | PC.NURSE ---
Single lumen PICC placed to right brachial vein without difficulty. Catheter trimmed at 36 cm prior to placement. Unable to advance recommended 2 cm. Tip in SVC per radiologist. Report given to patient care nurse. Dressing due to be changed tomorrow 05/14/22.
--- NOTE | 2022-05-13 12:14 | P.PN_ITS ---
Subjective Subjective: No acute events overnight. Patient underwent explantation of the hardware yesterday and tolerated well. Today morning seen lying comfortably in bed. Complaining of mild soreness in L leg. He is asking if he can qualify for insulin pump as an outpatient for his diabetes. We discussed that he will need to follow-up with endocrine for the same. He is agreeable. Vitals/I&O/Wt Last Vital Signs Temp 98.5 F 05/13/22 07:48 Pulse 102 H 05/13/22 08:00 Resp 18 05/13/22 08:56 BP 118/81 05/13/22 08:37 Pulse Ox 97 05/13/22 08:00 O2 Del Method 05/13/22 08:00 O2 Flow Rate 3 05/13/22 08:00 FiO2 30 05/11/22 21:12 05/12/22 05/13/22 05/13/22 22:59 06:59 14:59 Intake Total 1200 / 1500 480 / 1980 1540.0 / 1540.0 Output Total 260 / 260 Balance 940 / 1240 480 / 1720 1540.0 / 1540.0 Weight last 48 hrs Weight 67.642 kg Weight 67.268 kg Physical Exam Narrative: Nasal cannula oxygen supplementation Const: COMMON NORMALS: patient oriented x3 and alert GENERAL APPEARANCE: cooperative ORIENTATION/CONSCIOUSNESS: Yes awake HENMT: COMMON NORMALS: oropharynx normal Resp: AUSCULTATION: rhonchi, wheezes and diminished lung sounds Cardio: COMMON NORMALS: regular rhythm, S1 normal heart sound present, S2 normal heart sound present and No murmurs present (Cardio) RATE: tachycardic RHYTHM: regular rhythm HEART SOUNDS: S1 normal heart sound present and S2 normal heart sound present GI: COMMON NORMALS: Normal to inspection, nondistended, normoactive bowel sounds present, Soft to palpation and non-tender PALPATION: Yes Soft to palpation Extremity: COMMON NORMALS: no joint enlargement and no pedal edema Neuro: COMMON NORMALS: patient oriented x3 and moves all extremities SENS ORIUM/ORIENTATION: Yes alert Skin: COMMON NORMALS: no rashes or lesions noted GENERAL SKIN EXAM: no rashes or lesions noted OTHER: Resolved erythema on dorsal right foot. Persistent fissure plantar proximal right hallux. Due to coming plantar surface. Difficult to tell if any debris in the fissure. No drainage. Proximal left lower extremity round wound with crusted drainage. Data 05/13/22 05:04 05/13/22 05:04 Micro: Microbiology 05/12/22 20:44 Gram Stain - Final Leg - #3 05/12/22 20:06 Gram Stain - Final Leg - #2 05/12/22 19:56 Gram Stain - Final Leg - #1 A&P Assessment and plan (1) Acute respiratory failure: Most likely secondary to acute diastolic CHF, with noted elevated BNP, bilateral pleural effusions. Echocardiogram done during this admission shows relative hypokinesia inferior wall which is new when EF 50%. No chest pain. Troponins mild elevation. COVID-19 rapid antigen and flu negative. Patient refused COVID-19 PCR. Oxygen supplementation keeping saturation over 88%. Continue with IV Lasix 60 milligrams twice daily. Fluid restriction up to 1500 cc. Strict input output charting. Daily weights. DuoNebs every 6 hour, budesonide twice daily. I-S, flutter valve. Out of bed to chair. Antibiotics for osteomyelitis would also help with pneumonia as CT scan showed bilateral groundglass opacities which could be secondary pulm edema also. Sputum culture when possible. 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 Last cultures concerning for strep pyogenes. Patient did not take outpatient antibiotics. Orthopedic consulted for further evaluation and management with possible javier dware exploration and deep cultures. Patient will most likely need up to 6 weeks of IV antibiotics and possible chronic suppression. Patient is agreeable to 6 weeks of IV antibiotics now. Most likely will need placement to SNF for same. Patient is agreeable to that as well. MRSA positive recently. Add vancomycin. Continue with Zosyn. Qualifiers: Encounter type: initial encounter Qualified Code(s): T84.7XXA - Infection and inflammatory reaction due to other internal orthopedic prosthetic devices, implants and grafts, initial encounter (3) Osteomyelitis: (4) Abscess: (5) Non-healing wound of left lower extremity: (6) Acute diastolic CHF (congestive heart failure): As above. (7) Ground glass opacity present on imaging of lung: Suspect secondary to acute CHF. Follow-up chest x-ray. He is afebrile, without leukocytosis. Bacterial pneumonia suspicion is low. He has been having dry cough, however, does have wheezing. We will request reassessment with COVID PCR panel, rapid influenza. (8) Transaminitis: With untreated hepatitis C. Follow-up liver parameters. (9) Alkaline phosphatase elevation: With continued hepatitis C, possibly also with osteomyelitis left lower extremity. Follow-up liver parameters. (10) Bilateral pleural effusion: Secondary to heart failure. Treatment as above. No acute need for thoracentesis. (11) Hepatitis C: Plan Poor adherence to medical treatments: States that he is here trying to make good and receive treatment. Last time ended up leaving AMA. He did not feel his antibiotic prescriptions last time and has not been taking his other medications. Dates that he has come around and wants to receive treatment. He lives by himself. He has had significant functional decline. Once able to move benefit from PT, OT assessment. We will request also CM consultation. He states he also needs a PCP. Elevated D-dimer, no PE CTA. Otherwise not presenting with any unilateral leg swelling to suggest DVT. Suspect may be related to his chronic infection. DVT prophylaxis. Hypertension: Goal blood pressure less than 140/90 mmhg. Add losartan 25 mg daily, metoprolol 25 mg twice daily. Will uptitrate as per blood pressure goals. Type 2 diabetes mellitus: Continue insulin sliding scale for now. Most likely will have to discharge on OHAs. Smoking addiction: Encourage cessation. Discussed with him nicotine patch and lozenges which are ordered. Plan for the day: Blood sugars in the morning elevated. Increase Lantus to 15 units twice daily. Continue with insulin high-dose protocol. Changed to carb consistent diet. Continue with current dose of losartan and metoprolol. Follow-up with OR cultures. On review it seems aerobic cultures have been set up though anaerobic cultures are still pending. For now continue vancomycin and Zosyn. Vanco trough 15-20. Patient will need 6 weeks of IV antibiotics for further management. PICC line placement today. Case management presented for discharge to SNF for further rehabitation and completion of IV antibiotic course. Plan to keep patient n.p.o. past midnight for possible Lexiscan in a.m. DNR/DNI. Carb consistent cardiac diet. Heparin 5000 every 12 hourly for DVT prophylaxis. Discharge planning: We will get physical therapy evaluation. Most likely patient will need to go to SNF to complete IV antibiotics and physical therapy. Patient is agreeable. Case management alerted. Attestations Medical Necessity Statement*: Requires further hospitalization for evaluation and management of osteomyelitis and hardware infection, postoperative care while safe discharge planning is sought and blood cultures and wound cultures are followed up for definitive IV antibiotic treatment Time Spent in Patient Care: Greater than 35 minutes Coding Level of Care Code Acute Director Of Corporate Sales for Chg Fwd Diagnoses Acute respiratory failure J96.00 Infected hardware in left lower extremity T84.7XXA Encounter type: initial encounter Osteomyelitis M86.9 Abscess L02.91 Non-healing wound of left lower extremity S81.802A Acute diastolic CHF (congestive heart failure) I50.31 Ground glass opacity present on imaging of lung R91.8 Transaminitis R74.01 Alkaline phosphatase elevation R74.8 Bilateral pleural effusion J90 Hepatitis C B19.20
[2022-05-13 12:19] LABS: Glucose Point of Care 152 mg/dL (70-110)
--- NOTE | 2022-05-13 13:32 | P.PN_ITS ---
Subjective Subjective: Patient is seen today in his room. He is status post left intramedullary arturo removal from his tibia with cultures. Patient also had debridement of his right great toe with Dr. Hernandez at the same surgical procedure. Today, he is doing well. He did note that he gave consideration to leaving last night after his surgery, but fortunately, his brother was able to talk him out of it. Medications: Reviewed: Yes Vitals/I&O/Wt Last Vital Signs Temp 98.5 F 05/13/22 07:48 Pulse 102 H 05/13/22 08:00 Resp 12 05/13/22 13:25 BP 118/81 05/13/22 08:37 Pulse Ox 97 05/13/22 08:00 O2 Del Method 05/13/22 12:00 O2 Flow Rate 3 05/13/22 08:00 FiO2 30 05/11/22 21:12 05/12/22 05/13/22 05/13/22 22:59 06:59 14:59 Intake Total 1200 / 1500 480 / 1980 1540.0 / 1540.0 Output Total 260 / 260 Balance 940 / 1240 480 / 1720 1540.0 / 1540.0 Weight last 48 hrs Weight 149 lb 2 oz Weight 148 lb 4.8 oz Physical Exam Const: COMMON NORMALS: no acute distress, average body habitus, patient oriented x3 and alert GENERAL APPEARANCE: cooperative and comfortable ORIENTATION/CONSCIOUSNESS: Yes awake HENMT: COMMON NORMALS: normocephalic and atraumatic HEAD & SCALP: normocephalic and atraumatic Eye: GENERAL EYE: appearance normal, both eyes and all related structures Chest: COMMONS NORMALS: normal inspection of the chest Resp: COMMON NORMALS: normal respiratory effort EFFORT & INSPECTION: Yes able to speak in complete sentences and Yes symmetric chest movement Extremity: NARRATIVE EXTREMITY EXAM: Dressings on the left lower extremity remain dry and intact. He is neurologically intact. There is no evidence of DVT. He may be weightbearing as tolerated. Neuro: COMMON NORMALS: patient oriented x3 SENSORIUM/ORIENTATION: Yes alert Psych: COMMON NORMALS: mental status grossly normal APPEARANCE: Yes grossly normal ATTITUDE: Yes calm and Yes engaged ATTENTION/CONCENTRATION: Yes attention grossly intact Skin: COMMON NORMALS: no rashes or lesions noted GENERAL SKIN EXAM: no rashes or lesions noted Data 05/13/22 05:04 05/13/22 05:04 Micro: Microbiology 05/12/22 20:44 Gram Stain - Final Leg - #3 05/12/22 20:06 Gram Stain - Final Leg - #2 05/12/22 19:56 Gram Stain - Final Leg - #1 A&P Assessment and plan (1) Infected hardware in left lower extremity: Patient underwent hardware removal from his left lower extremity. Cultures were taken from the proximal and distal screws as well as from the intramedullary canal. He is now on appropriate antibiotics. He may be weightbearing as tolerated on this lower extremity. Primary wound closure was accomplished over all areas. Qualifiers: Encounter type: initial encounter Qualified Code(s): T84.7XXA - Infection and inflammatory reaction due to other internal orthopedic prosthetic devices, implants and grafts, initial encounter (2) Non-healing wound of left lower extremity: Attestations Medical Necessity Statement*: Ongoing IV therapy for infected hardware and right great toe. Coding Level of Care Code Acute Events And Promotions Assistant for Yannick Duenas Diagnoses Infected hardware in left lower extremity T84.7XXA Encounter type: initial encounter Non-healing wound of left lower extremity S81.802A
[2022-05-13 16:57] LABS: Glucose Point of Care 443 mg/dL (70-110)
[2022-05-13 21:17] LABS: Glucose Point of Care 230 mg/dL (70-110)
[2022-05-13] MEDS: insulin glargine 100 units/1 mL 15 UNIT SUBCUT (21:52)
[2022-05-13] MEDS: acetaminophen 325 mg Tablet 650 MG PO (21:53)
[2022-05-14] VITALS (12 sets, daily range): BP systolic 125–154; BP diastolic 73–92; PULSE 65–118; RESP 14–20; TEMP 36.3–38.1; O2SAT 92–96
[2022-05-14] MEDS: piperacillin-tazobactam 3.375 GM in sodium chloride 0.9% (plus) 50 ML IV ×3 (03:34→20:11)
[2022-05-14] MEDS: HYDROmorphone 1 mg/mL INJ 1 mL IVP ×3 (05:23→23:49)
[2022-05-14] MEDS: heparin 5,000 unit/mL INJ 1 mL 5000 UNIT SUBCUT ×2 (05:40→18:23)
[2022-05-14 05:49] LABS: Basophils % 0.2 %; Eosinophils # 0.1 10^3/uL (0.0-0.8); Eosinophils % 0.3 %; Hemoglobin 12.3 g/dL (11.7-16.6); Lymphocytes # 3.1 10^3/uL (0.8-4.8); Mean Corpuscular HGB Conc 32.4 g/dL (30.0-36.0); Mean Corpuscular Hemoglobin 31.2 pg (28.0-34.0); Mean Corpuscular Volume 96.4 fl (80-94); Mean Platelet Volume 11.3 fL (7.4-10.4); Monocytes # 1.4 10^3/uL (0.2-0.9); Monocytes % 7.7 %; Neutrophils % 74.2 %; Nucleated Red Blood Cells % 0 %; Platelet Count 277 10^3/cmm (130-400); Red Blood Count 3.94 10^6/uL (4.1-5.3); Red Cell Distribution Width 14.4 % (12.1-15.1); White Blood Count 17.9 10^3/uL (4.0-10.0)
[2022-05-14 06:21] LABS: Vancomycin Trough 21.5 ug/mL (10-15)
[2022-05-14 06:22] LABS: Alanine Aminotransferase 33 U/L (0-41); Albumin Level 2.8 g/dL (3.5-5.2); Alkaline Phosphatase 171 U/L (40-130); Anion Gap 14.6 (5-19); Aspartate Amino Transferase 43 U/L (0-40); Blood Urea Nitrogen 17 mg/dL (6-20); Calcium 8.2 mg/dL (8.5-10.5); Carbon Dioxide 23 mmol/L (22-29); Chloride 103 mmol/L (98-107); Globulin 4.4 g/dL (1.3-4.6); Glomerular Filtration Rate 167.4 mL/min (90-130); Glucose 222 mg/dL (65-115); Osmolality Calculated 292 mOsm/kg (285-295); Potassium 3.6 mmol/L (3.5-5.1); Sodium 137 mmol/L (136-145); Total Bilirubin 0.4 mg/dL (0.15-1.2); Total Protein 7.2 g/dL (6.6-8.7)
[2022-05-14 06:49] LABS: Glucose Point of Care 236 mg/dL (70-110)
--- NOTE | 2022-05-14 07:58 | ECG_ITS ---
[facility] Test Date: 2022-05-14 Pat Name: Leroy Olivo Department: Room: 267 Gender: Male Sap Bi Developer: Charline Wilks : 1965 Requested By: Kash Ruff Order Number: [id number] Joseph MD: Yolette Snow M.D. Interpretive Statements NAME OF STUDY: LEXISCAN SESTAMIBI STRESS TEST INDICATION: Chest Pain, PROCEDURE: At the baseline, the EKG revealed sinus tachycardia with a poor R wave progression. Diffuse nonspecific T wave changes. The baseline heart was 101 bpm with a blood pressue of 141/91 mm of Hg Lexiscan was infused over a period of 20 seconds. A total of 0.4 milligrams of Lexiscan was infused. The stress phase was continued for a total of 5 minutes. Heart rate at the end of the stress phase was 104 bpm with a blood pressure 131/89 mm of Hg. The EKG at the peak infusion revealed no significant changes. Sestamibi was injected 20 seconds after the Lexiscan infusion. Heart rate at the end of the recovery phase was 103 bpm with a blood pressure of 133/91 mm of Hg. CONCLUSION: 1. No significant EKG changes with the LexiScan infusion 2. No LexiScan induced chest pain or cardiac arrhythmia 3. Normal blood pressure and heart rate response 4. Sestamibi/sestamibi perfusion scan pending; see separate report. Electronically Signed On 05-15-2022 11:57:27 [employer] by Yolette Snow M.D. [email or web address]
[2022-05-14] MEDS: regadenoson 0.4 Mg/5 ml Syringe IVP (09:55)
--- NOTE | 2022-05-14 11:04 | P.PN_ITS ---
Subjective Subjective: No acute events overnight patient states pain is okay controlled. Found with multiple food packets around the room including donuts boxes, cheese and crackers and grapes. Discussed in detail with patient regarding healthy dietary habits given uncontrolled diabetes mellitus. Patient verbalized u nderstanding. Do not seem to be from the bed. Patient is agreeable to the same. Patient is awaiting Lexiscan today. Stating he is extremely hungry currently. Vitals/I&O/Wt Last Vital Signs Temp 97.8 F 05/14/22 08:00 Pulse 73 05/14/22 08:49 Resp 18 05/14/22 08:49 BP 137/85 05/14/22 09:56 Pulse Ox 96 05/14/22 08:49 O2 Del Method 05/14/22 08:49 O2 Flow Rate 3 05/13/22 08:00 FiO2 30 05/11/22 21:12 05/13/22 05/14/22 05/14/22 22:59 06:59 14:59 Intake Total 300 / 1840.0 1180 / 3020.0 50 / 50 Output Total 500 / 500 850 / 1350 Balance -200 / 1340.0 330 / 1670.0 50 / 50 Weight last 48 hrs Weight 69.944 kg Weight 67.642 kg Physical Exam Narrative: Nasal cannula oxygen supplementation Const: COMMON NORMALS: patient oriented x3 and alert GENERAL APPEARANCE: cooperative ORIENTATION/CONSCIOUSNESS: Yes awake HENMT: COMMON NORMALS: oropharynx normal Resp: AUSCULTATION: rhonchi, wheezes and diminished lung sounds Cardio: COMMON NORMALS: regular rhythm, S1 normal heart sound present, S2 normal heart sound present and No murmurs present (Cardio) RATE: tachycardic RHYTHM: regular rhythm HEART SOUNDS: S1 normal heart sound present and S2 normal heart sound present GI: COMMON NORMALS: Normal to inspection, nondistended, normoactive bowel sounds present, Soft to palpation and non-tender PALPATION: Yes Soft to palpation Extremity: COMMON NORMALS: no joint enlargement and no pedal edema Neuro: COMMON NORMALS: patient oriented x3 and moves all extremities SENSORIUM/ORIENTATION: Yes alert Skin: COMMON NORMALS: no rashes or lesions noted GENERAL SKIN EXAM: no rashes or lesions noted OTHER: Resolved erythema on dorsal right foot. Persistent fissure plantar proximal right hallux. Due to coming plantar surface. Difficult to tell if any debris in the fissure. No drainage. Proximal left lower extremity round wound with crusted drainage. Data 05/14/22 05:12 05/14/22 05:12 Micro: Microbiology 05/12/22 20:44 Gram Stain - Final Leg - #3 05/12/22 20:06 Gram Stain - Final Leg - #2 05/12/22 19:56 Gram Stain - Final Leg - #1 A&P Assessment and plan (1) Infected hardware in left lower extremity: CT lower limb concerning for abscess and osteomyelitis along with hardware infection. Last cultures concerning for strep pyogenes. Patient did not take outpatient antibiotics. Orthopedic consulted for further evaluation and management with possible hardware exploration and deep cultures. Patient will most likely need up to 6 weeks of IV antibiotics and possible chronic suppression. Patient is agreeable to 6 weeks of IV antibiotics now. Most likely will need placement to SNF for same. Patient is agreeable to that as well. MRSA positive recently. Add vancomycin. Continue with Zosyn. Qualifiers: Encounter type: initial encounter Qualified Code(s): T84.7XXA - I nfection and inflammatory reaction due to other internal orthopedic prosthetic devices, implants and grafts, initial encounter (2) Status post hardware removal: (3) Osteomyelitis: (4) Abscess: (5) Non-healing wound of left lower extremity: (6) Acute respiratory failure: Most likely secondary to acute diastolic CHF, with noted elevated BNP, bilateral pleural effusions. Echocardiogram done during this admission shows relative hypokinesia inferior wall which is new when EF 50%. No chest pain. Troponins mild elevation. COVID-19 rapid antigen and flu negative. Patient refused COVID-19 PCR. Oxygen supplementation keeping saturation over 88%. Continue with IV Lasix 60 milligrams twice daily. Fluid restriction up to 1500 cc. Strict input output charting. Daily weights. DuoNebs every 6 hour, budesonide twice daily. I-S, flutter valve. Out of bed to chair. Antibiotics for osteomyelitis would also help with pneumonia as CT scan showed bilateral groundglass opacities which could be secondary pulm edema also. Sputum culture when possible. (7) Acute diastolic CHF (congestive heart failure): As above. (8) Ground glass opacity present on imaging of lung: Suspect secondary to acute CHF. Follow-up chest x-ray. He is afebrile, without leukocytosis. Bacterial pneumonia suspicion is low. He has been having dry cough, however, does have wheezing. We will request reassessment with COVID PCR panel, rapid influenza. (9) Transaminitis: With untreated hepatitis C. Follow-up liver parameters. (10) Alkaline phosphatase elevation: With continued hepatitis C, possibly also with osteomyelitis left lower extremity. Follow-up liver parameters. (11) Bilateral pleural effusion: Secondary to heart failure. Treatment as above. No acute need for thoracentesis. (12) Hepatitis C: Plan Poor adherence to medical treatments: States that he is here trying to make good and receive treatment. Last time ended up leaving AMA. He did not feel his antibiotic prescriptions last time and has not been taking his other medications. Dates that he has come around and wants to receive treatment. He lives by himself. He has had significant functional decline. Once able to move benefit from PT, OT assessment. We will request also CM consultation. He states he also needs a PCP. Elevated D-dimer, no PE CTA. Otherwise not presenting with any unilateral leg swelling to suggest DVT. Suspect may be related to his chronic infection. DVT prophylaxis. Hypertension: Goal blood pressure less than 140/90 mmhg. Add losartan 25 mg daily, metoprolol 25 mg twice daily. Will uptitrate as per blood pressure goals. Type 2 diabetes mellitus: Continue insulin sliding scale for now. Most likely will have to discharge on OHAs. Smoking addiction: Encourage cessation. Discussed with him nicotine patch and lozenges which are ordered. Plan for the day: Plan for the day: Lexiscan today. Carb consistent diet post Lexiscan. Blood sugar still elevated. Counseled the patient in detail regarding healthy habits. Patient has been eating multiple donuts a day currently. Continue with Lantus 15 units twice daily and insulin sliding scale. Also counseled patient for prolonged hospitalization IV antibiotics needed. For now patient is agreeable. Continue with current IV antibiotics. PICC line placed yesterday. Plan to discharge for 6 weeks of IV antibiotics. oxygen supplementation keeping saturation over 88%. Switch inhalers to as needed. Continue Lasix 40 mg oral daily. Fluid restriction up to 1500 cc as possible. DNR/DNI. Carb consistent cardiac diet. Heparin 5000 every 12 hourly for DVT prophylaxis. Discharge planning: Patient will need extensive wound care given osteomyelitis and abscess, post infected hardware removal along with prolonged IV antibiotic course. Will cover the same patient will require to be at facility which can provide growth along with close monitoring. [facility] is reviewed in the chart. Case management alerted. Attestations Medical Necessity Statement*: Requires further hospitalization for management of infected hardware with osteomyelitis, post hardware removal, new congestive heart failure while patient awaits Lexiscan stress test and safe discharge planning for prolonged IV antibiotic course Time Spent in Patient Care: Greater than 35 minutes Coding Level of Care Code Acute Chronometer Assembler for Yannick Fwconrado Diagnoses Infected hardware in left lower extremity T84.7XXA Encounter type: initial encounter Status post hardware removal Z98.890 Osteomyelitis M86.9 Abscess L02.91 Non-healing wound of left lower extremity S81.802A Acute respiratory failure J96.00 Acute diastolic CHF (congestive heart failure) I50.31 Ground glass opacity present on imaging of lung R91.8 Transaminitis R74.01 Alkaline phosphatase elevation R74.8 Bilateral pleural effusion J90 Hepatitis C B19.20
[2022-05-14] MEDS: insulin glargine 100 units/1 mL 15 UNIT SUBCUT ×2 (11:24→21:14)
[2022-05-14] MEDS: insulin lispro 100 unit/1 mL SUBCUT ×3 (11:24→21:14)
[2022-05-14] MEDS: losartan 50 mg Tablet 25 MG PO (11:25)
[2022-05-14] MEDS: guaiFENesin 600 mg Tablet PO ×2 (11:25→18:23)
[2022-05-14] MEDS: metoprolol tartrate 25 mg Tablet PO ×2 (11:25→20:11)
[2022-05-14] MEDS: ferrous gluconate 324 mg Tablet PO ×2 (11:25→18:23)
[2022-05-14] MEDS: FUROsemide 40 mg Tablet PO ×2 (11:25→11:27)
[2022-05-14] MEDS: aspirin 81 mg EC Tablet PO (11:25)
[2022-05-14] MEDS: vancomycin 1,250 MG/250 ML PIGGYBACK 250 MG IV ×2 (11:26→23:17)
[2022-05-14 12:03] LABS: Glucose Point of Care 356 mg/dL (70-110)
--- NOTE | 2022-05-14 12:30 | NMCV_ITS ---
NM margarita perf SPECT r/s* [id number] Leroy Olivo Age: 56 Gender: M : 1965 Exam Date: 05/14/2022 12:30 Ordering Phys: Kash Ruff MD Technologist: SOLOMON Borja Exam Location: [facility] Indications: CHEST PAIN STRESS TEST Please see separate stress test report in [facility] for full findings IMAGE PROTOCOL Rest/Stress 1 Lexiscan Day Radiopharmaceutical Dose (mCi) Administration Site Administered by Rest: Tc-99m 10.9 IV SOLOMON Back Sestamibi Stress:Tc-99m 32.8 IV SOLOMON Back Sestamibi Rest: 14-May-2022 60 Discovery 630 Stress: 14-May-2022 30 Discovery 630 0.4mg Lexiscan. Supine position only as patient was unable to lay prone. SPECT RESULTS Technical Quality: Excellent Raw Data Analysis: Normal Image Corrections: No attenuation or motion correction applied Summed Stress Score: 3 Summed Rest Score: 1 Summed Difference Score: 2 PERFUSION FINDINGS Small area of slightly decreased tracer uptake was noted in the apical inferior, apical lateral and LV apex. Some reversibility was noted in the apical lateral and LV apex. FUNCTIONAL RESULTS (calculated via Gated SPECT) Stress Image LV EF (%): 39 Stress EDV (mL):160 TID: 0.86 Stress ESV (mL):98 FUNCTIONAL FINDINGS: Segmental wall motion analysis revealing diffuse hypokinesia of the left ventricle. IMPRESSIONS 1. Myocardial perfusion imaging revealing a small area of reversible defect in the LV apex and apical lateral segment, suggestive of ischemia in the distribution of the left circumflex artery. 2. Diminished LV ejection fraction of 30%. 3. LV wall motion analysis revealing diffuse hypokinesia of the left ventricle 4. Mildly dilated LV cavity with an end-systolic volume of 98 mL No similar previous studies are available for comparison Dr Yolette Snow MD [facility] (Electronically Signed) Final Date: 14 May 2022 13:52 S
[2022-05-14] MEDS: acetaminophen 325 mg Tablet 650 MG PO (13:26)
--- NOTE | 2022-05-14 14:59 | P.PN_ITS ---
Subjective Subjective: The patient had some bleeding from the lower incisions last evening, dressings were removed and replaced. Medications: Reviewed: Yes Vitals/I&O/Wt Last Vital Signs Temp 97.8 F 05/14/22 08:00 Pulse 106 H 05/14/22 12:00 Resp 14 05/14/22 12:46 BP 154/90 05/14/22 12:00 Pulse Ox 92 05/14/22 12:00 O2 Del Method 05/14/22 08:49 O2 Flow Rate 3 05/13/22 08:00 FiO2 30 05/11/22 21:12 05/13/22 05/14/22 05/14/22 22:59 06:59 14:59 Intake Total 300 / 1840.0 1180 / 3020.0 300 / 300 Output Total 500 / 500 850 / 1350 Balance -200 / 1340.0 330 / 1670.0 300 / 300 Weight last 48 hrs Weight 154 lb 3.2 oz Weight 149 lb 2 oz Physical Exam Narrative: Patient is seen in his room. He seems comfortable, and has minimal complaints at the moment. Const: COMMON NORMALS: no acute distress, average body habitus, patient oriented x3 and alert GENERAL APPEARANCE: cooperative and comfortable ORIENTATION/CONSCIOUSNESS: Yes awake HENMT: COMMON NORMALS: normocephalic and atraumatic HEAD & SCALP: normocephalic and atraumatic Eye: GENERAL EYE: appearance normal, both eyes and all related structures Chest: COMMONS NORMALS: normal inspection of the chest Resp: COMMON NORMALS: normal respiratory effort EFFORT & INSPECTION: Yes able to speak in complete sentences and Yes symmetric chest movement Extremity: NARRATIVE EXTREMITY EXAM: Dressings on the left lower extremity remain dry and intact. The lower dressing was changed last evening by the nursing staff. He is neurologically intact. There is no evidence of DVT. He may be weightbearing as tolerated. LEFT LOWER EXTREMITY: Yes lower leg (Minimal swelling, no significant ecchymosis.) Left lower leg: Yes palpation (No significant tenderness.) and Yes neurovascular exam (Intact distally for patient.) Neuro: COMMON NORMALS: patient oriented x3 SENSORIUM/ORIENTATION: Yes alert Psych: COMMON NORMALS: mental status grossly normal APPEARANCE: Yes grossly normal ATTITUDE: Yes calm and Yes engaged ATTENTION/CONCENTRATION: Yes attention grossly intact Skin: COMMON NORMALS: no rashes or lesions noted GENERAL SKIN EXAM: no rashes or lesions noted Data 05/14/22 05:12 05/14/22 05:12 A&P Assessment and plan (1) Infected hardware in left lower extremity: Patient underwent hardware removal from his left lower extremity. Cultures were taken from the proximal and distal screws as well as from the intramedullary canal. These are still pending. He is now on appropriate antibiotics. He may be weightbearing as tolerated on this lower extremity. Primary wound closure was accomplished over all areas. Dressings were changed, and the leg will be wrapped with an Luis wrap. There is no evidence of DVT. Qualifiers: Encounter type: initial encounter Qualified Code(s): T84.7XXA - Infection and inflammatory reaction due to other internal orthopedic prosthetic devices, implants and grafts, initial encounter (2) Non-healing wound of left lower extremity: Attestations Medical Necessity Statement*: Ongoing IV antibiotic treatment of bilateral lower extremity infections. Coding Level of Care Code Acute Code for [facility] Fwd Diagnoses Infected hardware in left lower extremity T84.7XXA Encounter type: initial encounter Non-healing wound of left lower extremity S81.802A
--- NOTE | 2022-05-14 16:29 | P.CONIM_ITS ---
Providers/Reason For Consult Consulting Physician/Specialty*: Dr. Chaney, Cardiology Reason for Consult*: Abnormal stress test, CHF Attending Physician: Kash Ruff MD History of Present Illness History of Present Illness Leroy Olivo is a 56 year old male with past medical history of untreated diabetes, HTN, chronic active smoking and drinking and untreated hepatitis C was recently hospitalized due to sepsis and cellulitis of right foot with fissure and wound on proximal right hallux with attempted partial debridement, as well as nonhealing chronically draining wound of left lower extremity at the tibia proximal to the knee and concern for osteomyelitis and possible hardware infection.? He ended up leaving AMA during last hospitalization.? He is not compliant with medications. He presented to the hospital due to shortness of breath and was found to have bilateral vascular congestion on chest x-ray.? CT angiogram of the chest was negative for PE.? Large bilateral lower lobe pleural effusions.? He underwent right hallux wound excisional debridement and removal of infected hardware. He had echo on admission that showed mildly decraesed LV function with LVEF of 52% and he denies any chest pain or pressure. Review of Systems Const: Reports: body aches, fatigue and malaise ENMT: Denies: throat pain Card: Denies: chest pain, edema or pre-syncope Resp: Reports: dyspnea and non-productive cough; Denies: change in phlegm color or hemoptysis GI: Denies: abdominal pain, nausea, vomiting, diarrhea, constipation, hematochezia or melena : Denies: flank pain, difficulty urinating, urinary frequency or hematuria Musc: Reports: other (right foot pain); Denies: back pain, joint swelling or joint redness Skin/Breast: Denies: rash or new lesions Neuro: Denies: headache(s), numbness in extremities, weakness in extremities, dizziness, confusion or seizure-like activity Endo: Reports: tired all the time and cold intolerance All/Imm: Denies: throat swelling or facial swelling Medications/Allergies Home Medications Medication Instructions Recorded Confirmed Last Taken Type No Known Home Medications 05/09/22 05/09/22 Unknown History Allergies Allergy/AdvReac Type Severity Reaction Status Date / Time No Known Allergies Allergy Verified 05/09/22 11:20 Current Medications Generic Name Dose Route Start Last Admin Trade Name Freq PRN Reason Stop Dose Admin Acetaminophen 650 mg 05/09/22 18:39 05/14/22 13:26 Acetaminophen 325 Mg Tablet PO 650 mg Q6H PRN Administration Mild/Mod Pain Or Temp >/= 101 Aspirin 81 mg 05/11/22 09:00 05/14/22 11:25 Aspirin 81 Mg Ec Tablet PO 81 mg DAILY STEPHANIE Administration Budesonide 0.5 mg 05/09/22 20:00 05/14/22 08:50 Budesonide 0.5 Mg/2 Ml Neb INHALATION Not Given BID.RESPIRATORY STEPHANIE Ferrous Gluconate 324 mg 05/11/22 08:00 05/14/22 11:25 Ferrous Gluconate 324 Mg Tablet PO 324 mg BIDWM STEPHANIE Administration Furosemide 40 mg 05/12/22 08:00 05/14/22 11:27 Furosemide 40 Mg Tablet PO 40 mg DAILY@0800 STEPHANIE Administration Guaifenesin 600 mg 05/09/22 18:39 05/14/22 11:25 Guaifenesin 600 Mg Tablet PO 600 mg BID STEPHANIE Administration Heparin Sodium (Porcine) 5,000 unit 05/09/22 18:39 05/14/22 05:40 Heparin 5,000 Unit/Ml Inj 1 Ml SUBCUT 5,000 unit Q12H STEPHANIE Administration Hydromorphone HCl 1 mg 05/14/22 00:48 05/14/22 12:46 Hydromorphone 1 Mg/Ml Inj 1 Ml IVP 1 mg Q4H PRN Administration SEVERE PAIN Piperacillin Sod/Tazobactam 50 mls @ 12.5 mls/hr 05/10/22 20:00 05/14/22 13:25 Sod 3.375 gm/ Sodium Chloride IV 12.5 mls/hr Q8H STEPHANIE Administration Protocol Vancomycin/PEG/NADA/Lysine/Water 1,250 mg in 250 mls @ 250 mls/hr 05/14/22 11:00 05/14/22 14:28 Vancocin IV Infused Q12H STEPHANIE Infusion Insulin Glargine 15 unit 05/13/22 20:00 05/14/22 11:24 Insulin Glargine 100 Units/1 Ml SUBCUT 15 unit Q12H STEPHANIE Administration Insulin Human Lispro 0 unit 05/09/22 18:39 05/14/22 13:26 Insulin Lispro 100 Unit/1 Ml SUBCUT 10 unit WM&BEDTIME STEPHANIE Administration Protocol Losartan Potassium 25 mg 05/11/22 09:00 05/14/22 11:25 Losartan 50 Mg Tablet PO 25 mg DAILY STEPHANIE Administration Metoprolol Tartrate 25 mg 05/11/22 09:00 05/14/22 11:25 Metoprolol Tartrate 25 Mg Tablet PO 25 mg BID@0900,2100 STEPHANIE Administration Nicotine 1 patch 05/09/22 18:39 05/13/22 17:20 Nicotine 21 Mg Patch TRANSDERMA Not Given Q24H STEPHANIE PFSH Acute PFSH: Medical History 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 Diabetes Diabetic peripheral neuropathy associated with type 2 diabetes mellitus Hepatitis C HTN (hypertension) Methamphetamine use Non-healing wound of left lower extremity Open tibial fracture Orthopedic hardware present Smoking Surgical History History of surgery on lower extremity Family History Other Crohn's disease Diabetes Social History Smoking and tobacco status: current every day smoker cigarettes Alcohol intake: current Alcohol intake frequency: holidays/special occasions only Lives independently: Yes Household members: none Marital status: 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 Vitals/I&O/Wt Last Vital Signs Temp 97.8 F 05/14/22 08:00 Pulse 106 H 05/14/22 12:00 Resp 14 05/14/22 12:46 BP 154/90 05/14/22 12:00 Pulse Ox 92 05/14/22 12:00 O2 Del Method 05/14/22 08:49 O2 Flow Rate 3 05/13/22 08:00 FiO2 30 05/11/22 21:12 05/14/22 05/14/22 05/14/22 06:59 14:59 22:59 Intake Total 1180 / 3020.0 300 / 300 Output Total 850 / 1350 Balance 330 / 1670.0 300 / 300 Weight last 48 hrs Weight 154 lb 3.2 oz Weight 149 lb 2 oz Physical Exam Const: COMMON NORMALS: no acute distress, patient oriented x3 and alert GENERAL APPEARANCE: cooperative, comfortable, well kempt and well hydrated HENMT: COMMON NORMALS: hearing grossly normal bilaterally and external ears normal FACE & SINUS: normal facial exam EXTERNAL EAR: Yes external ears normal Eye: COMMON NORMALS: EOMs intact bilaterally and no scleral icterus GENERAL EYE: appearance normal, both eyes and all related structures Neck/C-Spine: COMMON NORMALS: supple and no JVD GENERAL: Yes normal visual inspection CAROTIDS: Yes normal carotid upstroke Chest: COMMONS NORMALS: normal inspection of the chest and normal palpation of entire chest wall CHEST: Yes Symmetrical chest wall rise and No tenderness Resp: COMMON NORMALS: clear to auscultation bilaterally AUSCULTATION: clear to auscultation bilaterally, no crackles, no rales, no rhonchi and no wheezes Cardio: COMMON NORMALS: no JVD, regular rate, regular rhythm, S1 normal heart sound present and S2 normal heart sound present RATE: regular rate RHYTHM: regular rhythm HEART SOUNDS: S1 normal heart sound present, S2 normal heart sound present, no gallops and no murmurs BRUITS: no carotid bruits GI: COMMON NORMALS: Soft to palpation AUSCULTATION: Yes normoactive bowel sounds PALPATION: Yes Soft to palpation, No Guarding due to palpation present (GI) and No Rigid due to palpation Extremity: GENERAL: No cyanosis, Yes edema (trace left), No pallor and Yes other findings (left knee dressed and right toe dressed) Neuro: COMMON NORMALS: patient oriented x3 and no focal motor deficits SENSORIUM/ORIENTATION: Yes alert Psych: COMMON NORMALS: Normal thought process present and speech normal APPEARANCE: Yes well kempt SPEECH: Yes normal speech MOOD & AFFECT: Yes euthymic mood THOUGHT PROCESS: Normal thought process present THOUGHT CONTENT: Yes Normal thought content present Data 05/14/22 05:12 05/14/22 05:12 Other data: TTE (05/09/21) CONCLUSIONS ?Normal LV size with? borderline low ejection fraction of 52%. ? Relative hypokinesia of the inferolateral wall segment ?Thickened mitral valve. ?Thickened aortic valve. ?There is no pericardial effusion. ?There are no intracardiac masses. ?Compared to the study from 04/13/2022, the relative hypokinesia ?of the inferolateral wall segment appears to be new. ?Consider further work-up, if clinically indicated Lexiscan sestamibi stress test (05/14/22) ?IMPRESSIONS ?1.? Myocardial perfusion imaging revealing a small area of reversible defect in ?the LV apex and apical lateral segment, suggestive of ischemia in the ?distribution of the left circumflex artery. ?2.? Diminished LV ejection fraction of 30%. ?3.? LV wall motion analysis revealing diffuse hypokinesia of the left ventricle ?4.? Mildly dilated LV cavity with an end-systolic volume of 98 mL A&P Assessment and plan (1) Abnormal nuclear stress test: Mildly abnormal stress test -No chest pain, flat troponin and no significant ST-T wave changes -Given patient's h/o meth abuse, non compliance and mildly abnormal stress test; I recommend medical management and plan for [facility] based on response to medical management and whether or not he remains compliant with meds. -continue Aspirin and metoprolol. statin held for now given alcohol abuse and abnormal liver enzymes. -Outpatient follow up with Susie Samson in 2-3 weeks (2) Congestive heart failure: CHF with mildly decreased LV function -appears euvolemic on exam -continue current meds (3) Hypertension: (4) Diabetes: Plan Hepatitis C H/o tobacco and alcohol abuse s/p removal of infected hardware Osteomyelitis H/O non compliance Patient seen today via Telehealth by agreement and consent of patient. Telehealth technology used during the visit include video and audio. Exam was conducted with the help of bedside nurse. Time spent in encounter 30 minutes with >50% time spent face to face. Coding Level of Care Code Acute Code for [facility] Fwd Diagnoses Abnormal nuclear stress test R94.39 Congestive heart failure I50.9 Hypertension I10 Diabetes E11.9
[2022-05-14 17:37] LABS: Glucose Point of Care 83 mg/dL (70-110)
[2022-05-14 20:48] LABS: Glucose Point of Care 360 mg/dL (70-110)
--- NOTE | 2022-05-14 23:52 | PC.NURSE ---
This nurse has asked serval times to examine and change the dressing on the right foot and he has refusing stating it is not ready yet
[2022-05-15] VITALS (7 sets, daily range): BP systolic 126–150; BP diastolic 75–93; PULSE 84–101; RESP 16–23; TEMP 36.6–37.3; O2SAT 92–99
[2022-05-15] MEDS: piperacillin-tazobactam 3.375 GM in sodium chloride 0.9% (plus) 50 ML IV ×2 (03:37→13:22)
[2022-05-15 05:08] LABS: Basophils % 0.1 %; Eosinophils # 0.1 10^3/uL (0.0-0.8); Eosinophils % 0.4 %; Hematocrit 36.1 % (42.0-52.0); Hemoglobin 11.6 g/dL (11.7-16.6); Lymphocytes # 2.6 10^3/uL (0.8-4.8); Lymphocytes % 18.3 %; Mean Corpuscular HGB Conc 32.1 g/dL (30.0-36.0); Mean Corpuscular Hemoglobin 31.5 pg (28.0-34.0); Mean Corpuscular Volume 98.1 fl (80-94); Mean Platelet Volume 12.3 fL (7.4-10.4); Monocytes # 1.3 10^3/uL (0.2-0.9); Monocytes % 9.3 %; Neutrophils # 9.99 10^3/uL (1.8-7.7); Neutrophils % 71.3 %; Nucleated Red Blood Cells % 0 %; Platelet Count 205 10^3/cmm (130-400); Red Blood Count 3.68 10^6/uL (4.1-5.3); Red Cell Distribution Width 14.2 % (12.1-15.1)
[2022-05-15 06:19] LABS: Alanine Aminotransferase 30 U/L (0-41); Albumin Level 2.8 g/dL (3.5-5.2); Alkaline Phosphatase 158 U/L (40-130); Anion Gap 11.6 (5-19); Aspartate Amino Transferase 40 U/L (0-40); Blood Urea Nitrogen 8 mg/dL (6-20); Calcium 8.6 mg/dL (8.5-10.5); Carbon Dioxide 25 mmol/L (22-29); Chloride 104 mmol/L (98-107); Globulin 4.9 g/dL (1.3-4.6); Glomerular Filtration Rate 267.3 mL/min (90-130); Glucose 122 mg/dL (65-115); Osmolality Calculated 284 mOsm/kg (285-295); Potassium 3.6 mmol/L (3.5-5.1); Sodium 137 mmol/L (136-145); Total Bilirubin 0.7 mg/dL (0.15-1.2); Total Protein 7.7 g/dL (6.6-8.7)
[2022-05-15] MEDS: heparin 5,000 unit/mL INJ 1 mL 5000 UNIT SUBCUT ×2 (06:33→17:43)
[2022-05-15 06:40] LABS: Glucose Point of Care 99 mg/dL (70-110)
--- NOTE | 2022-05-15 07:40 | P.PN_ITS ---
Subjective Subjective: Patient seen at bedside this morning. Doing well. States that he is having pain in his right foot at the site of dressing. He states that he feels that it is too tight. Multiple comments were made about him wanting to leave and that he is sick of staying here at the hospital. Vitals/I&O/Wt Last Vital Signs Temp 98.0 F 05/15/22 04:00 Pulse 96 05/15/22 04:00 Resp 23 H 05/15/22 04:00 BP 146/93 05/15/22 04:00 Pulse Ox 97 05/15/22 04:00 O2 Del Method 05/14/22 08:49 O2 Flow Rate 3 05/13/22 08:00 FiO2 30 05/11/22 21:12 05/14/22 05/15/22 05/15/22 22:59 06:59 14:59 Intake Total 50 / 350 500 / 850 Output Total 1600 / 1600 Balance 50 / 350 -1100 / -750 Weight last 48 hrs Weight 156 lb Weight 154 lb 3.2 oz Physical Exam Narrative: GENERAL: A&O x 3 VASCULAR: DP/PT pulses palpable 2/4 with CFT intact, <3seconds to distal digits DERMATOLOGICAL: Stable wound to plantar aspect of right hallux at the interphalangeal joint measuring 1.5 cm circumferentially with 100% granular base no active drainage no purulence no signs of deep space infection. Negative probe to bone no proximal streaking. MUSCULOSKELETAL: Pain with palpation of right hallux isolated to the plantar right hallux IPJ fissure. 5/5 muscle strength in all 4 quadrants of the lower extremity when tested against resistance NEUROLOGICAL: Neurological sensation to the affected foot and ankle is diminished through L4-S1 dermatomes via 10g SWMF, diminished sensation extends proximally to the level of the midfoot Data 05/15/22 04:05 05/15/22 05:50 Micro: Microbiology 05/15/22 04:05 Blood Culture - Preliminary Blood SPECIMEN COLLECTED 05/15/22 04:00 Blood Culture - Preliminary Blood SPECIMEN COLLECTED 05/12/22 20:06 Gram Stain - Final Leg - #2 Anaerobic Culture - Preliminary Wound Culture - Preliminary 05/12/22 20:06 Anaerobic Culture - Preliminary Leg - #1 05/12/22 19:56 Anaerobic Culture - Preliminary Leg - #2 05/09/22 19:05 Blood Culture - Final Blood NO GROWTH AFTER 5 DAYS 05/09/22 19:00 Blood Culture - Final Blood NO GROWTH AFTER 5 DAYS 05/12/22 19:56 Gram Stain - Final Leg - #1 Wound Culture - Preliminary 05/12/22 20:44 Gram Stain - Final Leg - #3 Wound Culture - Preliminary A&P Assessment and plan (1) Diabetic peripheral neuropathy associated with type 2 diabetes mellitus: (2) Chronic ulcer of right foot due to diabetes mellitus: (3) Pain of right foot: (4) Hepatitis C: (5) DM type 2 (diabetes mellitus, type 2): Plan -S/p right hallux wound debridement DOS: 05/12/2022 -Labs and vitals reviewed -WBC 15.6 -Diet: Okay for diet from podiatry standpoint. No further surgical intervention by podiatry during this admission -Weight bearing: Weightbearing as tolerated to right foot -Dressings: Betadine wet-to-dry daily. Changed by podiatry today 05/15/2022 -Trend labs -Discharge plan: Patient is okay to discharge from a podiatry standpoint. Recommend case management consultation as patient will need referral to wound care center for right hallux ulceration. Patient will also need dressing supplies in the form of Betadine, 4 x 4 gauze, Coban. Patient is to perform daily dressing changes after discharge from hospital. If patient goes to SNF they will need to perform daily wound care dressings consisting of Betadine wet-to-dry -Podiatry will continue to round on patient daily and provide recommendations Attestations Medical Necessity Statement*: See above Coding Level of Care Code Acute Code for [facility] Fw Diagnoses Diabetic peripheral neuropathy associated with type 2 diabetes mellitus E11.42 Chronic ulcer of right foot due to diabetes mellitus E11.621; L97.519 Pain of right foot M79.671 Hepatitis C B19.20 DM type 2 (diabetes mellitus, type 2) E11.9
[2022-05-15] MEDS: budesonide 0.5 mg/2 mL Neb INHALATION ×2 (08:27→20:56)
[2022-05-15] MEDS: aspirin 81 mg EC Tablet PO (09:13)
[2022-05-15] MEDS: HYDROcodone-acetaminophen 5-325 mg Tablet 1 TAB PO ×3 (09:54→21:46)
[2022-05-15] MEDS: FUROsemide 40 mg Tablet PO (10:13)
[2022-05-15] MEDS: guaiFENesin 600 mg Tablet PO ×2 (10:13→17:43)
[2022-05-15] MEDS: losartan 50 mg Tablet PO (10:14)
[2022-05-15] MEDS: ferrous gluconate 324 mg Tablet PO ×2 (10:14→17:43)
[2022-05-15] MEDS: metoprolol tartrate 25 mg Tablet PO (10:14)
[2022-05-15] MEDS: vancomycin 1,250 MG/250 ML PIGGYBACK 250 MG IV ×2 (10:17→22:22)
[2022-05-15 12:33] LABS: Glucose Point of Care 303 mg/dL (70-110)
[2022-05-15] MEDS: insulin lispro 100 unit/1 mL SUBCUT ×3 (12:49→21:44)
[2022-05-15] MEDS: insulin glargine 100 units/1 mL 15 UNIT SUBCUT ×2 (12:49→21:45)
--- NOTE | 2022-05-15 13:45 | P.PN_ITS ---
Subjective Subjective: Patient is seen in his room. He states he is frustrated with being in the hospital, however, I reminded him of our discussions regarding the importance of following through on treatment. Medications: Reviewed: Yes Vitals/I&O/Wt Last Vital Signs Temp 97.8 F 05/15/22 08:00 Pulse 99 05/15/22 08:27 Resp 18 05/15/22 08:27 BP 150/93 05/15/22 08:00 Pulse Ox 99 05/15/22 08:27 O2 Del Method 05/15/22 08:27 O2 Flow Rate 2 05/15/22 08:27 FiO2 30 05/11/22 21:12 05/14/22 05/15/22 05/15/22 22:59 06:59 14:59 Intake Total 50 / 350 500 / 850 50 / 50 Output Total 1600 / 1600 Balance 50 / 350 -1100 / -750 50 / 50 Weight last 48 hrs Weight 156 lb Weight 154 lb 3.2 oz Physical Exam Narrative: Patient is seen in his room. He seems comfortable, and has minimal complaints at the moment. Const: COMMON NORMALS: no acute distress, average body habitus, patient oriented x3 and alert GENERAL APPEARANCE: cooperative and comfortable ORIENTATION/CONSCIOUSNESS: Yes awake HENMT: COMMON NORMALS: normocephalic and atraumatic HEAD & SCALP: normocephalic and atraumatic Eye: GENERAL EYE: appearance normal, both eyes and all related structures Chest: COMMONS NORMALS: normal inspection of the chest Resp: COMMON NORMALS: normal respiratory effort EFFORT & INSPECTION: Yes able to speak in complete sentences and Yes symmetric chest movement Extremity: NARRATIVE EXTREMITY EXAM: Right foot has been addressed by Dr. Hernandez. The left leg dressings are dry and intact. An Luis wrap will be wrapped from the foot up to the knee. There is minimal to no swelling. There is no evidence of DVT. Neuro: COMMON NORMALS: patient oriented x3 SENSORIUM/ORIENTATION: Yes alert Psych: COMMON NORMALS: mental status grossly normal APPEARANCE: Yes grossly normal ATTITUDE: Yes calm and Yes engaged ATTENTION/CONCENTRATION: Yes attention grossly intact Skin: COMMON NORMALS: no rashes or lesions noted GENERAL SKIN EXAM: no rashes or lesions noted Data 05/15/22 04:05 05/15/22 05:50 Micro: Microbiology 05/15/22 04:05 Blood Culture - Preliminary Blood SPECIMEN COLLECTED 05/15/22 04:00 Blood Culture - Preliminary Blood SPECIMEN COLLECTED 05/12/22 20:06 Gram Stain - Final Leg - #2 Anaerobic Culture - Preliminary Wound Culture - Preliminary 05/12/22 20:06 Anaerobic Culture - Preliminary Leg - #1 05/12/22 19:56 Anaerobic Culture - Preliminary Leg - #2 05/09/22 19:05 Blood Culture - Final Blood NO GROWTH AFTER 5 DAYS 05/09/22 19:00 Blood Culture - Final Blood NO GROWTH AFTER 5 DAYS 05/12/22 19:56 Gram Stain - Final Leg - #1 Wound Culture - Preliminary 05/12/22 20:44 Gram Stain - Final Leg - #3 Wound Culture - Preliminary A&P Assessment and plan (1) Infected hardware in left lower extremity: Patient is status post hardware removal. This was a intramedullary tibial arturo with 4 screws. Surgery was uneventful. Cultures were taken. Currently, wounds are benign. He may be weightbearing as tolerated. Silverlon dressings will remain on for approximately 1 week and then may be removed. Saeid will need to be removed at 2 weeks. Patient is ready for discharge from an orthopedic perspective. Qualifiers: Encounter type: initial encounter Qualified Code(s): T84.7XXA - Infection and inflammatory reaction due to other internal orthopedic prosthetic devices, implants and grafts, initial encounter (2) Status post hardware removal: (3) Diabetic peripheral neuropathy associated with type 2 diabetes mellitus: (4) Chronic ulcer of right foot due to diabetes mellitus: (5) Pain of right foot: (6) Hepatitis C: (7) DM type 2 (diabetes mellitus, type 2): Attestations Medical Necessity Statement*: Ongoing antibiotic therapy and awaiting placement at skilled facility Coding Level of Care Code Acute Code for [facility] Fwd Exam Detailed Diagnoses Infected hardware in left lower extremity T84.7XXA Encounter type: initial encounter Status post hardware removal Z98.890 Diabetic peripheral neuropathy associated with type 2 diabetes mellitus E11.42 Chronic ulcer of right foot due to diabetes mellitus E11.621; L97.519 Pain of right foot M79.671 Hepatitis C B19.20 DM type 2 (diabetes mellitus, type 2) E11.9
--- NOTE | 2022-05-15 14:58 | P.PN_ITS ---
Subjective Subjective: No acute events overnight. Seen with spouse at bedside. Somehow patient has been kept n.p.o. today morning. Patient is frustrated that he cannot eat. Discussed with them that keeping n.p.o. must be a mistake and diet was resumed. Patient is frustrated that he still in the hospital. Discussed with him the need for continued hospitalization prolonged medication. He verbalized understanding and wants to continue with the treatment. Denies any chest pain, nausea, vomiting. Medications: Reviewed: Yes Vitals/I&O/Wt Last Vital Signs Temp 97.8 F 05/15/22 08:00 Pulse 99 05/15/22 08:27 Resp 18 05/15/22 08:27 BP 150/93 05/15/22 08:00 Pulse Ox 99 05/15/22 08:27 O2 Del Method 05/15/22 08:27 O2 Flow Rate 2 05/15/22 08:27 FiO2 30 05/11/22 21:12 05/14/22 05/15/22 05/15/22 22:59 06:59 14:59 Intake Total 50 / 350 500 / 850 50 / 50 Output Total 1600 / 1600 Balance 50 / 350 -1100 / -750 50 / 50 Weight last 48 hrs Weight 70.76 kg Weight 69.944 kg Physical Exam Narrative: Nasal cannula oxygen supplementation Const: COMMON NORMALS: patient oriented x3 and alert GENERAL APPEARANCE: c ooperative ORIENTATION/CONSCIOUSNESS: Yes awake HENMT: COMMON NORMALS: oropharynx normal Resp: AUSCULTATION: rhonchi, wheezes and diminished lung sounds Cardio: COMMON NORMALS: regular rhythm, S1 normal heart sound present, S2 normal heart sound present and No murmurs present (Cardio) RATE: tachycardic RHYTHM: regular rhythm HEART SOUNDS: S1 normal heart sound present and S2 normal heart sound present GI: COMMON NORMALS: Normal to inspection, nondistended, normoactive bowel sounds present, Soft to palpation and non-tender PALPATION: Yes Soft to palpation Extremity: COMMON NORMALS: no joint enlargement and no pedal edema Neuro: COMMON NORMALS: patient oriented x3 and moves all extremities SENSORIUM/ORIENTATION: Yes alert Skin: COMMON NORMALS: no rashes or lesions noted GENERAL SKIN EXAM: no rashes or lesions noted OTHER: Resolved erythema on dorsal right foot. Persistent fissure plantar proximal right hallux. Due to coming plantar surface. Difficult to tell if any debris in the fissure. No drainage. Proximal left lower extremity round wound with crusted drainage. Data 05/15/22 04:05 05/15/22 05:50 Micro: Microbiology 05/12/22 20:44 Gram Stain - Final Leg - #3 Wound Culture - Preliminary 05/15/22 04:05 Blood Culture - Preliminary Blood SPECIMEN COLLECTED 05/15/22 04:00 Blood Culture - Preliminary Blood SPECIMEN COLLECTED 05/12/22 20:06 Gram Stain - Final Leg - #2 Anaerobic Culture - Preliminary Wound Culture - Preliminary 05/12/22 20:06 Anaerobic Culture - Preliminary Leg - #1 05/12/22 19:56 Anaerobic Culture - Preliminary Leg - #2 05/09/22 19:05 Blood Culture - Final Blood NO GROWTH AFTER 5 DAYS 05/09/22 19:00 Blood Culture - Final Blood NO GROWTH AFTER 5 DAYS 05/12/22 19:56 Gram Stain - Final Leg - #1 Wound Culture - Preliminary A&P Assessment and plan (1) Infected hardware in left lower extremity: CT lower limb concerning for abscess and osteomyelitis along with hardware in fection. Last cultures concerning for strep pyogenes. Patient did not take outpatient antibiotics. Orthopedic consulted for further evaluation and management with possible hardware exploration and deep cultures. Patient will most likely need up to 6 weeks of IV antibiotics and possible chronic suppression. Patient is agreeable to 6 weeks of IV antibiotics now. Most likely will need placement to SNF for same. Patient is agreeable to that as well. MRSA positive recently. Add vancomycin. Continue with Zosyn. Qualifiers: Encounter type: initial encounter Qualified Code(s): T84.7XXA - Infection and inflammatory reaction due to other internal orthopedic prosthetic devices, implants and grafts, initial encounter (2) Status post hardware removal: (3) Osteomyelitis: (4) Abscess: (5) Non-healing wound of left lower extremity: (6) Acute respiratory failure: Most likely secondary to acute diastolic CHF, with noted elevated BNP, bilateral pleural effusions. Echocardiogram done during this admission shows relative hypokinesia inferior wall which is new when EF 50%. No chest pain. Troponins mild elevation. COVID-19 rapid antigen and flu negative. Patient refused COVID-19 PCR. Oxygen supplementation keeping saturation over 88%. Continue with IV Lasix 60 milligrams twice daily. Fluid restriction up to 1500 cc. Strict input output charting. Daily weights. DuoNebs every 6 hour, budesonide twice daily. I-S, flutter valve. Out of bed to chair. Antibiotics for osteomyelitis would also help with pneumonia as CT scan showed bilateral groundglass opacities which could be secondary pulm edema also. Sputum culture when possible. (7) Acute diastolic CHF (congestive heart failure): As above. (8) Ground glass opacity present on imaging of lung: Suspect secondary to acute CHF. Follow-up chest x-ray. He is afebrile, without leukocytosis. Bacterial pneumonia suspicion is low. He has been having dry cough, however, does have wheezing. We will request reassessment with COVID PCR panel, rapid influenza. (9) Transaminitis: With untreated hepatitis C. Follow-up liver parameters. (10) Alkaline phosphatase elevation: With continued hepatitis C, possibly also with osteomyelitis left lower extremity. Follow-up liver parameters. (11) Bilateral pleural effusion: Secondary to heart failure. Treatment as above. No acute need for thoracentesis. (12) Hepatitis C: (13) Abnormal nuclear stress test: Plan Poor adherence to medical treatments: States that he is here trying to make good and receive treatment. Last time ended up leaving [facility]. He did not feel his antibiotic prescriptions last time and has not been taking his other medications. Dates that he has come around and wants to receive treatment. He lives by himself. He has had significant functional decline. Once able to move benefit from PT, OT assessment. We will request also CM consultation. He states he also needs a PCP. Elevated D-dimer, no PE CTA. Otherwise not presenting with any unilateral leg swelling to suggest DVT. Suspect may be related to his chronic infection. DVT prophylaxis. Hypertension: Goal blood pressure less than 140/90 mmhg. Add losartan 25 mg daily, metoprolol 25 mg twice daily. Will uptitrate as per blood pressure goals. Type 2 diabetes mellitus: Continue insulin sliding scale for now. Most likely will have to discharge on OHAs. Smoking addiction: Encourage cessation. Discussed with him nicotine patch and lozenges which are ordered. Plan for the day: Lexiscan stress test positive. Appreciate cardiology recommendations. Given h istory of noncompliance and recent meth abuse plan for treatment medically for now. Discussed above with patient and patient's spouse as well. Continue with aspirin, beta-johan. Statin on hold given transaminitis secondary to history of hepatitis C. Patient is chest pain-free. Blood pressure is better controlled but still mildly elevated. Losartan increased to 50 mg daily. Switch from metoprolol to Coreg 6.25 mg twice daily. Blood sugars continue to remain erratic given patient's erratic eating behavior. Lantus 15 mg BID, Increase ISS at high dose protocol. Continue oral Lasix. Patient euvolemic. Follow-up OR cultures. OR cultures so far negative. Will be tricky as patient was on antibiotics from multiple number of days prior to the OR. PICC line in place. Will discuss with ID regarding outpatient IV antibiotics for prolonged course of 6 weeks. For now continue with vancomycin and Zosyn. Patient has been accepted at [facility]. Awaiting authorization. Appreciate podiatry, orthopedic, cardiology, ID recommendations. DNR/DNI. Carb consistent cardiac diet. Heparin 5000 every 12 hourly for DVT prophylaxis. Discharge planning: Patient will need extensive wound care given osteomyelitis and abscess, post infected hardware removal along with prolonged IV antibiotic course. Will cover the same patient will require to be at facility which can provide growth along with close monitoring. [facility] is reviewed in the chart. Case management alerted. Attestations Medical Necessity Statement*: Further hospitalization for management of osteomyelitis, hardware infection , CHF, in setting of ischemic cardiomyopathy, positive stress test. Time Spent in Patient Care: Greater than 35 minutes Coding Level of Care Code Acute Code for Chg Fwd Diagnoses Infected hardware in left lower extremity T84.7XXA Encounter type: initial encounter Status post hardware removal Z98.890 Osteomyelitis M86.9 Abscess L02.91 Non-healing wound of left lower extremity S81.802A Acute respiratory failure J96.00 Acute diastolic CHF (congestive heart failure) I50.31 Ground glass opacity present on imaging of lung R91.8 Transaminitis R74.01 Alkaline phosphatase elevation R74.8 Bilateral pleural effusion J90 Hepatitis C B19.20 Abnormal nuclear stress test R94.39
[2022-05-15 17:22] LABS: Glucose Point of Care 168 mg/dL (70-110)
[2022-05-15] MEDS: nicotine 21 mg Patch 1 PATCH TRANSDERMA (17:42)
[2022-05-15] MEDS: carvedilol 6.25 mg Tablet PO (17:45)
--- NOTE | 2022-05-15 19:02 | PM.CONSULT ---
Providers/Reason For Consult Consulting Physician/Specialty*: Kim Gutiérrez MD/Infectious DIsease Reason for Consult*: Osteomyelitis Requesting Physician: Kash Ruff MD Attending Physician: Kash Ruff MD History of Present Illness History of Present Illness Leroy Olivo is a 56 year old male history of untreated diabetes, HTN, smoking, untreated hepatitis C, recent hospitalization due to sepsis, with cellulitis of right foot with fissure and wound on proximal right hallux with attempted partial debridement recently in April. He left AMA on this admission. Additionally he has a chronic wound over the left lower extremity which he sustained when he tried to knife out the poison from a copperhead bite few years ago. This is the site of a previously placed orthopedic hardware in 2019 for a tibial fracture. Currently admitted to the hospital since May 09 after presenting for dyspnea related to CHF which is optimized currently. During this admission he was found to have evidence of osteomyelitis of tibia on extremity imaging. He is s/sp removal of Distal screws x2 proximal screws x2 and tibial arturo through 5 separate incisions on may 12 in the left leg. CX from OR are currently pending. Also underwent Right hallux wound excisional debridement down to subcutaneous tissue. No probe to bone or abscess encountered intraopertaively. He is recovering well from both surgeries. Inists on his willingness to get better this time. Picc line has been placed in anticipation of prison abx. Currently he is empirically on Zosyn and vancomycin Review of Systems General: Reports: 10 or more systems reviewed and unremarkable except in HPI and below Const: Denies: fever(s), chills or body aches Eyes: Denies: change in vision, blurry vision or photophobia ENMT: Reports: hoarseness; Denies: throat pain, enlarged tonsils, odynophagia or nasal congestion Card: Denies: chest pain, palpitations, irregular heart rhythm, edema, swelling of feet/ankles, lightheadedness, pre-syncope, dyspnea on exertion or orthopnea Resp: Denies: dyspnea, productive cough, non-productive cough, wheezing, stridor, pain on inspiration, change in phlegm color, hemoptysis or chest congestion GI: Denies: abdominal pain, nausea, vomiting, hematemesis, coffee ground emesis, dysphagia, heartburn, diarrhea, constipation, GI cramping, change in stool character, hematochezia or melena : Denies: flank pain, dysuria, urinary frequency, urinary urgency, urinary hesitancy or hematuria Musc: Denies: neck pain, back pain, extremity pain, joint swelling, joint warmth or deformity Neuro: Denies: headache(s), numbness in extremities, weakness in extremities, sensory changes, difficulty walking, frequent falls, dizziness, vertigo, behavioral changes, Slurred speech present or seizure-like activity Psych: Denies: anxiety, depression, suicidal ideation or homicidal ideation Endo: Denies: polyuria, polydipsia, tired all the time, cold intolerance or hot flashes Boy/Lymph: Denies: easy bruising or easy bleeding Medications/Allergies Home Medications Medication Instructions Recorded Confirmed Last Taken Type No Known Home Medications 05/09/22 05/09/22 Unknown History Allergies Allergy/AdvReac Type Severity Reaction Status Date / Time No Known Allergies Allergy Verified 05/09/22 11:20 Current Medications Generic Name Dose Route Start Last Admin Trade Name Freq PRN Reason Stop Dose Admin Acetaminophen 650 mg 05/09/22 18:39 05/14/22 13:26 Acetaminophen 325 Mg Tablet PO 650 mg Q6H PRN Administration Mild/Mod Pain Or Temp >/= 101 Hydrocodone Bitart/Acetaminophen 1 tab 05/15/22 09:14 05/15/22 13:23 Hydrocodone-Acetaminophen 5-325 Mg Tablet PO 1 tab Q6H PRN Administration MODERATE PAIN Aspirin 81 mg 05/11/22 09:00 05/15/22 09:13 Aspirin 81 Mg Ec Tablet PO 81 mg DAILY STEPHANIE Administration Budesonide 0.5 mg 05/09/22 20:00 05/15/22 08:27 Budesonide 0.5 Mg/2 Ml Neb INHALATION 0.5 mg BID.RESPIRATORY STEPHANIE Administration Carvedilol 6.25 mg 05/15/22 18:00 05/15/22 17:45 Carvedilol 6.25 Mg Tablet PO 6.25 mg BID STEPHANIE Administration Ferrous Gluconate 324 mg 05/11/22 08:00 05/15/22 17:43 Ferrous Gluconate 324 Mg Tablet PO 324 mg BIDWM STEPHANIE Administration Furosemide 40 mg 05/12/22 08:00 05/15/22 10:13 Furosemide 40 Mg Tablet PO 40 mg DAILY@0800 STEPHANIE Administration Guaifenesin 600 mg 05/09/22 18:39 05/15/22 17:43 Guaifenesin 600 Mg Tablet PO 600 mg BID STEPHANIE Administration Heparin Sodium (Porcine) 5,000 unit 05/09/22 18:39 05/15/22 17:43 Heparin 5,000 Unit/Ml Inj 1 Ml SUBCUT 5,000 unit Q12H STEPHANIE Administration Vancomycin/PEG/NADA/Lysine/Water 1,250 mg in 250 mls @ 250 mls/hr 05/14/22 11:00 05/15/22 10:17 Vancocin IV 250 mls/hr Q12H STEPHANIE Administration Insulin Glargine 15 unit 05/13/22 20:00 05/15/22 12:49 Insulin Glargine 100 Units/1 Ml SUBCUT 15 unit Q12H STEPHANIE Administration Insulin Human Lispro 0 unit 05/09/22 18:39 05/15/22 17:43 Insulin Lispro 100 Unit/1 Ml SUBCUT 6 unit WM&BEDTIME STEPHANIE Administration Protocol Losartan Potassium 50 mg 05/15/22 09:00 05/15/22 10:14 Losartan 50 Mg Tablet PO 50 mg DAILY STEPHANIE Administration Nicotine 1 patch 05/09/22 18:39 05/15/22 17:42 Nicotine 21 Mg Patch TRANSDERMA 1 patch Q24H STEPHANIE Administration PFSH Acute PFSH: Medical History 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 Diabetes Diabetic peripheral neuropathy associated with type 2 diabetes mellitus Hepatitis C HTN (hypertension) Methamphetamine use Non-healing wound of left lower extremity Open tibial fracture Orthopedic hardware present Smoking Surgical History History of surgery on lower extremity Family History Other Crohn's disease Diabetes Social History Smoking and tobacco status: current every day smoker cigarettes Alcohol intake: current Alcohol intake frequency: holidays/special occasions only Lives independently: Yes Household members: none Marital status: 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 Vitals/I&O/Wt Last Vital Signs Temp 97.8 F 05/15/22 08:00 Pulse 90 05/15/22 16:00 Resp 18 05/15/22 08:27 BP 136/81 05/15/22 16:00 Pulse Ox 95 05/15/22 16:00 O2 Del Method 05/15/22 08:27 O2 Flow Rate 2 05/15/22 08:27 FiO2 30 05/11/22 21:12 05/15/22 05/15/22 05/15/22 06:59 14:59 22:59 Intake Total 500 / 850 50 / 50 Output Total 1600 / 1600 1350 / 1350 Balance -1100 / -750 50 / 50 -1350 / -1300 Weight last 48 hrs Weight 70.76 kg Weight 69.944 kg Physical Exam Narrative: General: No acute distress, AO x3 HEENT: PERRLA, pupils bilaterally equal and reactive, pallors not present Chest: Normal vesicular breath sounds, no added sounds, equal good air entry bilaterally CVS: S1-S2 regular, no murmurs, no tachycardia, no gallops, no rubs Abdomen: Soft, nontender, no organomegaly, bowel sounds present Neuro: No focal deficits, no facial deformity, AO x3, power 5/5 in all limbs Extremities: Healthy surgical dressing present on the left leg, mild tenderness, soft no erythema.additional dressing over right hallux. No surrounding cellulitis Data 05/15/22 04:05 05/15/22 05:50 Micro: Microbiology 05/12/22 19:56 Gram Stain - Final Leg - #1 Wound Culture - Preliminary 05/12/22 20:44 Gram Stain - Final Leg - #3 Wound Culture - Preliminary 05/15/22 04:05 Blood Culture - Preliminary Blood SPECIMEN COLLECTED 05/15/22 04:00 Blood Culture - Preliminary Blood SPECIMEN COLLECTED 05/12/22 20:06 Gram Stain - Final Leg - #2 Anaerobic Culture - Preliminary Wound Culture - Preliminary 05/12/22 20:06 Anaerobic Culture - Preliminary Leg - #1 05/12/22 19:56 Anaerobic Culture - Preliminary Leg - #2 05/09/22 19:05 Blood Culture - Final Blood NO GROWTH AFTER 5 DAYS 05/09/22 19:00 Blood Culture - Final Blood NO GROWTH AFTER 5 DAYS Other data: Radiology Impressions Chest CTA 05/09/22 12:58 IMPRESSION: 1. Negative for pulmonary embolism. 2. Large bilateral lower lobe pleural effusions. 3. Bilateral lower lobe atelectasis 4. Negative for right heart strain. 5. Ground-glass interstitial densities in both lungs. Lower Extremity CT 05/10/22 14:56 IMPRESSION: 1. There is marked cortical thickening, and ostial sclerosis and periosteal reaction in the proximal tibia adjacent to the tube proximal interlocking screws concerning for chronic osteomyelitis. No acute fracture or new bony destruction. 2. There is skin thickening, induration of the subcutaneous fat and findings of probable cellulitis with soft tissue phlegmon of the anteromedial proximal tibia greatest directly overlying/at the level of the 2 proximal interlocking screws. 3. Although there is artifact from the postoperative hardware, there is concern for small abscess/subperiosteal abscess along the anteromedial tibia measuring 1.2 x 1.8 x 2.5 cm interposed between the tips of the 2 interlocking screws best seen on series 5, image 69. Tibia/Fibula X-Ray 05/12/22 21:24 IMPRESSION: 1. Operative removal of the tibial fusion hardware since previous. 2. No other changes. Chest X-Ray 05/13/22 10:07 IMPRESSION: Right arm PICC line placement as above. Position of the PICC line and recommendation for 2 cm advancement was given over the phone to the phlebotomy technologist who understood and will relay information to PICC line nurse. Time 1135. Laboratory Results WBC 14.7 10^3/uL (4.0-10.0) H 05/16/22 05:00 RBC 3.80 10^6/uL (4.1-5.3) L 05/16/22 05:00 Hgb 11.9 g/dL (11.7-16.6) 05/16/22 05:00 Hct 36.2 % (42.0-52.0) L 05/16/22 05:00 MCV 95.3 fl (80-94) H 05/16/22 05:00 MCH 31.3 pg (28.0-34.0) 05/16/22 05:00 MCHC 32.9 g/dL (30.0-36.0) 05/16/22 05:00 RDW 13.5 % (12.1-15.1) 05/16/22 05:00 Plt Count 184 10^3/cmm (130-400) 05/16/22 05:00 MPV 12.3 fL (7.4-10.4) H 05/16/22 05:00 Neut % (Auto) 72.6 % 05/16/22 05:00 Lymph % (Auto) 17.6 % 05/16/22 05:00 [place] % (Auto) 8.6 % 05/16/22 05:00 Eos % (Auto) 0.6 % 05/16/22 05:00 Baso % (Auto) 0.1 % 05/16/22 05:00 Neut # (Auto) 10.64 10^3/uL (1.8-7.7) H 05/16/22 05:00 Lymph # (Auto) 2.6 10^3/uL (0.8-4.8) 05/16/22 05:00 [place] # (Auto) 1.3 10^3/uL (0.2-0.9) H 05/16/22 05:00 Eos # (Auto) 0.1 10^3/uL (0.0-0.8) 05/16/22 05:00 Baso # (Auto) 0.0 10^3/uL (0.0-0.1) 05/16/22 05:00 Nucleated RBC % (auto) 0 % 05/16/22 05:00 Nucleated RBCs # 0.0 /100WBC 05/16/22 05:00 PT 13.20 SECONDS (12.1-14.9) 05/09/22 12:08 INR 0.97 (0.8-1.2) 05/09/22 12:08 D-Dimer 1.33 ug/mIFEU (0-0.59) H 05/09/22 12:08 Specimen Type Arterial 05/09/22 11:01 Sample Site Radial, right 05/09/22 11:01 ABG pH 7.46 (7.35-7.45) H 05/09/22 11:01 ABG pCO2 40.8 mmHg (35-45) 05/09/22 11:01 ABG pO2 55.5 mmHg (80.0-100.0) L 05/09/22 11:01 ABG HCO3 29.3 mmol/L (22-26) H 05/09/22 11:01 ABG Base Excess 5.0 mmol/L (-2.0-2.0) H 05/09/22 11:01 Frandy Test Pos 05/09/22 11:01 Hematocrit 38.9 % (42-52) L 05/09/22 11:01 O2 Delivery Device Nc 05/09/22 11:01 O2 Liters/Min 44.0 % 05/09/22 11:01 FiO2 36.0 % 05/09/22 11:01 Merchandising Stock Associate ID Cak 05/09/22 11:01 Sodium 140 mmol/L (136-145) 05/16/22 05:00 Potassium 4.1 mmol/L (3.5-5.1) 05/16/22 05:00 Chloride 104 mmol/L (98-107) 05/16/22 05:00 Carbon Dioxide 26 mmol/L (22-29) 05/16/22 05:00 Anion Gap 14.1 (5-19) 05/16/22 05:00 BUN 10 mg/dL (6-20) 05/16/22 05:00 Creatinine 0.5 mg/dL (0.7-1.2) L 05/16/22 05:00 GFR Calculation 206.7 mL/min (90-130) H 05/16/22 05:00 Glucose 178 mg/dL (65-115) H 05/16/22 05:00 POC Glucose 184 mg/dL (70-110) H 05/16/22 06:38 Calculated Osmolality 293 mOsm/kg (285-295) 05/16/22 05:00 Calcium 8.3 mg/dL (8.5-10.5) L 05/16/22 05:00 Total Bilirubin 0.4 mg/dL (0.15-1.2) 05/16/22 05:00 AST 37 U/L (0-40) 05/16/22 05:00 ALT 30 U/L (0-41) 05/16/22 05:00 Alkaline Phosphatase 203 U/L (40-130) H 05/16/22 05:00 Troponin T Baseline 26 ng/L (0-15) H 05/09/22 12:08 Troponin T 120 Minute 24.80 ng/L (0-15) H 05/09/22 14:08 Delta Troponin T -1.20 ABS# (0-10) L 05/09/22 14:08 Troponin T Hi Sens 6Hr 27.86 ng/L (0-15) H 05/09/22 18:04 Troponin T Hi Sens 6Hr Delta 1.86 ng/L (0-12) 05/09/22 18:04 NT-Pro-B Natriuret Pep 2567 pg/mL (0-125) H 05/09/22 12:08 Total Protein 7.2 g/dL (6.6-8.7) 05/16/22 05:00 Albumin 2.7 g/dL (3.5-5.2) L 05/16/22 05:00 Globulin 4.5 g/dL (1.3-4.6) 05/16/22 05:00 TSH 0.84 uIU/mL (0.27-4.20) 05/10/22 05:03 Vancomycin Trough 21.5 ug/mL (10-15) H 05/14/22 05:12 Coronavirus 229E (PCR) Cancelled 05/10/22 Unknown Influenza Type A Ag negative (Negative) 05/10/22 11:06 Influenza Type B Ag negative (Negative) 05/10/22 11:06 SARS-CoV-2 (PCR) Cancelled 05/10/22 Unknown SARS-CoV-2 Ag (Rapid) negative (Negative) 05/10/22 11:06 A&P Assessment and plan (1) Status post hardware removal: (2) Chronic ulcer of right foot due to diabetes mellitus: (3) Osteomyelitis: (4) Infected hardware in left lower extremity: Qualifiers: Encounter type: initial encounter Qualified Code(s): T84.7XXA - Infection and inflammatory reaction due to other internal orthopedic prosthetic devices, implants and grafts, initial encounter Plan Patient p/w right foot diabetic foot ulcer s/p debridement and infected left tibial hardware with OM s/p surgical intevrntion with debridement and removal of all existing hardware on 05/12/21. CX thus far with skin doron, pending further w/up. 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 Blood cx negative to date. Denies IVDU. Reports occasional marijuana use. Will recommend treatment with iv vancomycin with goal trough of 15-20 at least over the next 6 weeks. Patient has a picc line placed 05/13 to facilitate above D/c Zosyn case management working on dispo planning- likely will transition to SNF to facilitate abx course will follow with final cultures Coding Level of Care Code Acute Code for Chg Fwd Diagnoses Status post hardware removal Z98.890 Chronic ulcer of right foot due to diabetes mellitus E11.621; L97.519 Osteomyelitis M86.9 Infected hardware in left lower extremity T84.7XXA Encounter type: initial encounter
[2022-05-15 21:38] LABS: Glucose Point of Care 304 mg/dL (70-110)
[2022-05-15] MEDS: acetaminophen 325 mg Tablet 650 MG PO (22:59)
[2022-05-16] VITALS (12 sets, daily range): BP systolic 116–162; BP diastolic 60–98; PULSE 90–101; RESP 16–18; TEMP 36.4–37.4; O2SAT 93–97
[2022-05-16 05:21] LABS: Basophils % 0.1 %; Eosinophils # 0.1 10^3/uL (0.0-0.8); Eosinophils % 0.6 %; Hematocrit 36.2 % (42.0-52.0); Hemoglobin 11.9 g/dL (11.7-16.6); Lymphocytes # 2.6 10^3/uL (0.8-4.8); Lymphocytes % 17.6 %; Mean Corpuscular HGB Conc 32.9 g/dL (30.0-36.0); Mean Corpuscular Hemoglobin 31.3 pg (28.0-34.0); Mean Corpuscular Volume 95.3 fl (80-94); Mean Platelet Volume 12.3 fL (7.4-10.4); Monocytes # 1.3 10^3/uL (0.2-0.9); Monocytes % 8.6 %; Neutrophils # 10.64 10^3/uL (1.8-7.7); Neutrophils % 72.6 %; Nucleated Red Blood Cells % 0 %; Platelet Count 184 10^3/cmm (130-400); Red Cell Distribution Width 13.5 % (12.1-15.1); White Blood Count 14.7 10^3/uL (4.0-10.0)
[2022-05-16] MEDS: HYDROcodone-acetaminophen 5-325 mg Tablet 1 TAB PO ×2 (05:45→19:41)
[2022-05-16] MEDS: heparin 5,000 unit/mL INJ 1 mL 5000 UNIT SUBCUT ×2 (05:46→17:30)
[2022-05-16 06:00] LABS: Alanine Aminotransferase 30 U/L (0-41); Albumin Level 2.7 g/dL (3.5-5.2); Alkaline Phosphatase 203 U/L (40-130)
[2022-05-16 06:31] LABS: Blood Urea Nitrogen 10 mg/dL (6-20); Calcium 8.3 mg/dL (8.5-10.5); Carbon Dioxide 26 mmol/L (22-29); Globulin 4.5 g/dL (1.3-4.6); Glomerular Filtration Rate 206.7 mL/min (90-130); Glucose 178 mg/dL (65-115); Total Bilirubin 0.4 mg/dL (0.15-1.2); Total Protein 7.2 g/dL (6.6-8.7)
[2022-05-16 06:35] LABS: Chloride 104 mmol/L (98-107); Osmolality Calculated 293 mOsm/kg (285-295); Sodium 140 mmol/L (136-145)
[2022-05-16 06:37] LABS: Anion Gap 14.1 (5-19); Aspartate Amino Transferase 37 U/L (0-40); Potassium 4.1 mmol/L (3.5-5.1)
[2022-05-16 06:50] LABS: Glucose Point of Care 184 mg/dL (70-110)
[2022-05-16] MEDS: budesonide 0.5 mg/2 mL Neb INHALATION ×2 (07:57→21:17)
[2022-05-16 08:06] LABS: Creatine Phosphokinase 82 U/L (39-308)
[2022-05-16] MEDS: losartan 50 mg Tablet PO (08:52)
[2022-05-16] MEDS: aspirin 81 mg EC Tablet PO (08:52)
[2022-05-16] MEDS: carvedilol 6.25 mg Tablet PO ×2 (08:52→17:23)
[2022-05-16] MEDS: ferrous gluconate 324 mg Tablet PO ×2 (08:53→17:23)
[2022-05-16] MEDS: insulin glargine 100 units/1 mL 15 UNIT SUBCUT ×2 (08:53→20:50)
[2022-05-16] MEDS: FUROsemide 40 mg Tablet PO (08:53)
[2022-05-16] MEDS: guaiFENesin 600 mg Tablet PO ×2 (08:53→17:23)
[2022-05-16] MEDS: insulin lispro 100 unit/1 mL SUBCUT ×3 (08:53→17:23)
[2022-05-16 10:44] LABS: Vancomycin Trough 8.8 ug/mL (10-15)
[2022-05-16] MEDS: vancomycin 1,250 MG/250 ML PIGGYBACK 250 MG IV ×2 (11:05→17:24)
[2022-05-16 11:32] LABS: Glucose Point of Care 279 mg/dL (70-110)
--- NOTE | 2022-05-16 16:53 | P.PN_ITS ---
Subjective Subjective: Reports that he is still having pain in both of his legs. He denies any fever or chills overnight. States that he has been able to eat and drink a little bit. Says that his pain is currently at an 8 out of 10. He is waiting on pain medicine to be brought in. Vitals/I&O/Wt Last Vital Signs Temp 99.4 F 05/16/22 12:00 Pulse 95 05/16/22 12:00 Resp 18 05/16/22 12:00 BP 148/88 05/16/22 12:00 Pulse Ox 93 05/16/22 12:00 O2 Del Method 05/16/22 12:00 O2 Flow Rate 2 05/16/22 07:58 FiO2 30 05/11/22 21:12 05/16/22 05/16/22 05/16/22 06:59 14:59 22:59 Intake Total 250 / 840 480 / 480 Balance 250 / -810 480 / 480 Weight last 48 hrs Weight 156 lb Physical Exam Narrative: General: No acute distress, AO x3 HEENT: PERRLA, pupils bilaterally equal and reactive, pallors not present Chest: Normal vesicular breath sounds, no added sounds, equal good air entry bilaterally Heart: S1-S2 regular, no murmurs, no tachycardia, no gallops, no rubs Abdomen: Soft, nontender, no organomegaly, bowel sounds present Neuro: No focal deficits, no facial deformity, AO x3. Extremities: Dressings are currently in place, clean, dry, intact. Mild tenderness to both lower extremities. No erythema or significant edema. Data 05/16/22 05:00 05/16/22 05:00 Micro: Microbiology 05/15/22 04:05 Blood Culture - Preliminary Blood NEGATIVE TO DATE 05/15/22 04:00 Blood Culture - Preliminary Blood NEGATIVE TO DATE 05/12/22 20:06 Gram Stain - Final Leg - #2 Anaerobic Culture - Preliminary Wound Culture - Preliminary Strep pyogenes (grp a) 05/12/22 19:56 Anaerobic Culture - Preliminary Leg - #2 05/12/22 20:06 Anaerobic Culture - Preliminary Leg - #1 05/12/22 19:56 Gram Stain - Final Leg - #1 Wound Culture - Preliminary 05/12/22 20:44 Gram Stain - Final Leg - #3 Wound Culture - Preliminary A&P Assessment and plan (1) Infected hardware in left lower extremity: Qualifiers: Encounter type: initial encounter Qualified Code(s): T84.7XXA - Infection and inflammatory reaction due to other internal orthopedic prosthetic devices, implants and grafts, initial encounter (2) Status post hardware removal: (3) Osteomyelitis: (4) Abscess: (5) Non-healing wound of left lower extremity: (6) Acute respiratory failure: (7) Acute diastolic CHF (congestive heart failure): As above. (8) Ground glass opacity present on imaging of lung: (9) Transaminitis: With untreated hepatitis C. Follow-up liver parameters. (10) Alkaline phosphatase elevation: (11) Bilateral pleural effusion: (12) Hepatitis C: (13) Abnormal nuclear stress test: Plan 56-year-old male with past medical history of diabetes, chronic ulcers of both lower extremities, nonhealing lower extremity wounds, untreated hepatitis C, osteomyelitis with infected hardware, who was admitted for osteomyelitis and infected hardware of the left lower extremity. Continue with close inpatient monitoring. Infectious diseases consulted and appreciate recommendations. Patient is colonized with MRSA and wound cultures are currently growing strep pyogenes. Infectious disease has recommended vancomycin every 12 hours for the next 6 weeks. Plan is currently to see [facility]. If not we will check on getting him admitted into some kind of a facility where he can have his antibiotics administered regularly to ensure compliance. If we are unable to place patient into a facility, we will have to consider you doing outpatient infusions, and daily daptomycin. Continue duonebs and supplemental oxygen. SSI for Diabetes. Smoking cessation. Currently using Nicotine patch. Continue physical therapy. Continue antihypertensives for BP control. Will need to establish with a PCP on discharge. SS is consulted and appreciate their help with arranging disposition. Poor adherence to medical treatments: States that he is here trying to make good and receive treatment. Last time ended up leaving AMA. He did not feel his antibiotic prescriptions last time and has not been taking his other medications. Dates that he has come around and wants to receive treatment. He lives by himself. He has had significant functional decline. Once able to move benefit from PT, OT assessment. We will request also CM consultation. He states he also needs a PCP. Lexiscan stress test positive. Appreciate cardiology recommendations. Given history of noncompliance and recent meth abuse plan for treatment medically for now. Discussed above with patient and patient's spouse as well. Continue with aspirin, beta-johan. Statin on hold given transaminitis jessicaxiang ancelmo to history of hepatitis C. Patient is chest pain-free. Blood pressure is better controlled but still mildly elevated. Losartan increased to 50 mg daily. Switch from metoprolol to Coreg 6.25 mg twice daily. Blood sugars continue to remain erratic given patient's erratic eating behavior. Lantus 15 mg BID, Increase ISS at high dose protocol. Appreciate podiatry, orthopedic, cardiology, ID recommendations. Code Status: DNR/DNI. Diet: Carb consistent cardiac DVT PPx: Heparin GI PPx: None Discharge planning: Patient will need extensive wound care given osteomyelitis and abscess, post infected hardware removal along with prolonged IV antibiotic course. [facility] vs. Outpatient infusions. Attestations Medical Necessity Statement*: Further hospitalization for management of osteomyelitis, hardware infection , CHF, in setting of ischemic cardiomyopathy, positive stress test. Time Spent in Patient Care: Greater than 35 minutes Coding Level of Care Code Acute Code for Chg Fwd Diagnoses Infected hardware in left lower extremity T84.7XXA Encounter type: initial encounter Status post hardware removal Z98.890 Osteomyelitis M86.9 Abscess L02.91 Non-healing wound of left lower extremity S81.802A Acute respiratory failure J96.00 Acute diastolic CHF (congestive heart failure) I50.31 Ground glass opacity present on imaging of lung R91.8 Transaminitis R74.01 Alkaline phosphatase elevation R74.8 Bilateral pleural effusion J90 Hepatitis C B19.20 Abnormal nuclear stress test R94.39
[2022-05-16 17:03] LABS: Glucose Point of Care 170 mg/dL (70-110)
[2022-05-16] MEDS: nicotine 21 mg Patch 1 PATCH TRANSDERMA (17:30)
--- NOTE | 2022-05-16 20:13 | PM.PN ---
Subjective Subjective: Infectious disease progress note. Cultures have been updated to reflect Streptococcus. Patient not seen today. Chart is reviewed. Medications: Reviewed: Yes Vitals/I&O/Wt Last Vital Signs Temp 98.7 F 05/16/22 16:00 Pulse 99 05/16/22 16:00 Resp 18 05/16/22 16:00 BP 116/60 05/16/22 16:00 Pulse Ox 94 05/16/22 16:00 O2 Del Method 05/16/22 16:00 O2 Flow Rate 2 05/16/22 07:58 FiO2 30 05/11/22 21:12 05/16/22 05/16/22 05/16/22 06:59 14:59 22:59 Intake Total 250 / 840 480 / 480 480 / 960 Balance 250 / -810 480 / 480 480 / 960 Weight last 48 hrs Weight 70.76 kg Physical Exam Narrative: Chart reviewed, care plan discussed with hospitalist. Data 05/16/22 05:00 05/16/22 05:00 Micro: Microbiology 05/12/22 20:06 Gram Stain - Final Leg - #2 Anaerobic Culture - Preliminary Wound Culture - Final Strep pyogenes (grp a) 05/12/22 19:56 Anaerobic Culture - Preliminary Leg - #2 05/12/22 20:06 Anaerobic Culture - Preliminary Leg - #1 05/12/22 19:56 Gram Stain - Final Leg - #1 Wound Culture - Final 05/12/22 20:44 Gram Stain - Final Leg - #3 Wound Culture - Final 05/15/22 04:05 Blood Culture - Preliminary Blood NEGATIVE TO DATE 05/15/22 04:00 Blood Culture - Preliminary Blood NEGATIVE TO DATE A&P Assessment and plan (1) Status post hardware removal: (2) Chronic ulcer of right foot due to diabetes mellitus: (3) Osteomyelitis: (4) Infected hardware in left lower extremity: Qualifiers: Encounter type: initial encounter Qualified Code(s): T84.7XXA - Infection and inflammatory reaction due to other internal orthopedic prosthetic devices, implants and grafts, initial encounter Plan Patient p/w right foot diabetic foot ulcer s/p debridement and removal of infected left tibial hardware with OM s/p surgical intevrntion with debridement and removal of all existing hardware on 05/12/21. OR culture Cx has been updated to reflect group A strep. 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 Blood cx negative to date. Denies IVDU. Reports occasional marijuana use. 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 Will recommend treatment with iv vancomycin with goal trough of 15-20 over the next 6 weeks. Patient has a picc line placed 05/13 to facilitate above Patient is planned [facility] where he can complete the above antibiotic course. Follow-up with ID clinic at the completion of antibiotic course. Attestations Medical Necessity Statement*: per admitting note Coding Level of Care Code Acute Code for Chg Fwd Diagnoses Status post hardware removal Z98.890 Chronic ulcer of right foot due to diabetes mellitus E11.621; L97.519 Osteomyelitis M86.9 Infected hardware in left lower extremity T84.7XXA Encounter type: initial encounter
[2022-05-16 20:39] LABS: Glucose Point of Care 134 mg/dL (70-110)
[2022-05-16] MEDS: acetaminophen 325 mg Tablet 650 MG PO (20:50)
[2022-05-17] VITALS (11 sets, daily range): BP systolic 129–156; BP diastolic 65–99; PULSE 84–109; RESP 15–18; TEMP 36.5–38.7; O2SAT 91–97
[2022-05-17] MEDS: HYDROcodone-acetaminophen 5-325 mg Tablet 1 TAB PO ×3 (02:02→20:25)
[2022-05-17] MEDS: vancomycin 1,250 MG/250 ML PIGGYBACK 250 MG IV ×3 (02:04→18:11)
[2022-05-17] MEDS: heparin 5,000 unit/mL INJ 1 mL 5000 UNIT SUBCUT ×2 (05:50→18:11)
[2022-05-17 06:30] LABS: Glucose Point of Care 144 mg/dL (70-110)
[2022-05-17] MEDS: budesonide 0.5 mg/2 mL Neb INHALATION ×2 (07:59→21:00)
[2022-05-17] MEDS: insulin lispro 100 unit/1 mL SUBCUT ×4 (09:21→20:24)
[2022-05-17] MEDS: guaiFENesin 600 mg Tablet PO ×2 (09:21→18:11)
[2022-05-17] MEDS: ferrous gluconate 324 mg Tablet PO ×2 (09:21→18:11)
[2022-05-17] MEDS: aspirin 81 mg EC Tablet PO (09:21)
[2022-05-17] MEDS: FUROsemide 40 mg Tablet PO (09:21)
[2022-05-17] MEDS: carvedilol 6.25 mg Tablet PO ×2 (09:22→18:11)
[2022-05-17] MEDS: losartan 50 mg Tablet PO (09:22)
[2022-05-17] MEDS: insulin glargine 100 units/1 mL 15 UNIT SUBCUT ×2 (09:22→20:24)
[2022-05-17 12:11] LABS: Glucose Point of Care 281 mg/dL (70-110)
[2022-05-17 17:19] LABS: Glucose Point of Care 158 mg/dL (70-110)
--- NOTE | 2022-05-17 17:30 | PM.PN ---
Subjective Subjective: Reports feeling much better today. Sitting up on bedside, visiting with nurses. Denies pain at this time. He was able to speak with Dr. Gutiérrez yesterday and he is well aware of the plan moving forward. Denies other concerns at this time. Medications: Reviewed: Yes Vitals/I&O/Wt Last Vital Signs Temp 98.2 F 05/17/22 16:00 Pulse 101 H 05/17/22 16:00 Resp 18 05/17/22 16:00 BP 156/99 05/17/22 16:00 Pulse Ox 93 05/17/22 16:00 O2 Del Method 05/17/22 16:00 O2 Flow Rate 2 05/17/22 08:00 FiO2 30 05/11/22 21:12 05/17/22 05/17/22 05/17/22 06:59 14:59 22:59 Intake Total 250 / 1700 610 / 610 Output Total 1000 / 1450 650 / 650 Balance -750 / 250 -40 / -40 Weight last 48 hrs Weight 253 lb 8 oz Physical Exam Narrative: General: No acute distress, AO x3 HEENT: PERRLA, pupils bilaterally equal and reactive, pallors not present Chest: Normal vesicular breath sounds, no added sounds, equal good air entry bilaterally CVS: S1-S2 regular, no murmurs, no tachycardia, no gallops, no rubs Abdomen: Soft, nontender, no organomegaly, bowel sounds present Neuro: No focal deficits, no facial deformity, AO x3, power 5/5 in all limbs Extremities: Healthy surgical dressing present on the left leg, mild tenderness, soft no erythema.additional dressing over right hallux. No surrounding cellulitis Data 05/16/22 05:00 05/16/22 05:00 Micro: Microbiology 05/12/22 19:56 Anaerobic Culture - Preliminary Leg - #2 05/12/22 20:06 Anaerobic Culture - Preliminary Leg - #1 05/12/22 20:06 Gram Stain - Final Leg - #2 Anaerobic Culture - Preliminary Wound Culture - Final Strep pyogenes (grp a) 05/12/22 19:56 Gram Stain - Final Leg - #1 Wound Culture - Final 05/12/22 20:44 Gram Stain - Final Leg - #3 Wound Culture - Final A&P Assessment and plan (1) Status post hardware removal: (2) Chronic ulcer of right foot due to diabetes mellitus: (3) Osteomyelitis: (4) Infected hardware in left lower extremity: Qualifiers: Encounter type: initial encounter Qualified Code(s): T84.7XXA - Infection and inflammatory reaction due to other internal orthopedic prosthetic devices, implants and grafts, initial encounter (5) Abscess: (6) Non-healing wound of left lower extremity: (7) Acute respiratory failure: (8) Acute diastolic CHF (congestive heart failure): As above. (9) Ground glass opacity present on imaging of lung: (10) Transaminitis: With untreated hepatitis C. Follow-up liver parameters. (11) Alkaline phosphatase elevation: (12) Bilateral pleural effusion: (13) Hepatitis C: (14) Abnormal nuclear stress test: Plan 56-year-old male with past medical history of diabetes, chronic ulcers of both lower extremities, nonhealing lower extremity wounds, untreated hepatitis C, osteomyelitis with infected hardware, who was admitted for osteomyelitis and infected hardware of the left lower extremity. Continue with close inpatient monitoring. Infectious diseases consulted and appreciate recommendations. Patient is colonized with MRSA and wound cultures are currently growing strep pyogenes. Infectious disease has recommended vancomycin every 12 hours for the next 6 weeks. Plan is currently to see if patient can qualify for stay at [facility] for IV antibiotics. If not we will check on getting him admitted into some kind of a facility where he can have his antibiotics administered regularly to ensure compliance. If we are unable to place patient into a facility, we will have to consider you doing outpatient infusions, and daily daptomycin. Will have SS reach out to [facility] again early tomorrow for status updates on admission. Continue duonebs and supplemental oxygen. SSI for Diabetes. Smoking cessation. Currently using Nicotine patch. Continue physical therapy. Continue antihypertensives for BP control. Will need to establish with a PCP on discharge. SS is consulted and appreciate their help with arranging disposition. Poor adherence to medical treatments: States that he is here trying to make good and receive treatment. Last time ended up leaving AMA. He did not feel his antibiotic prescriptions last time and has not been taking his other medications. Dates that he has come around and wants to receive treatment. He lives by himself. He has had significant functional decline. Once able to move benefit from PT, OT assessment. We will request also CM consultation. He states he also needs a PCP. Lexiscan stress test positive. Appreciate cardiology recommendations. Given history of noncompliance and recent meth abuse plan for treatment medically for now. Discussed above with patient and patient's spouse as well. Continue with aspirin, beta-johan. Statin on hold given transaminitis secondary to history of hepatitis C. Patient is chest pain-free. Blood pressure is better controlled but still mildly elevated. Losartan increased to 50 mg daily. Switch from metoprolol to Coreg 6.25 mg twice daily. Blood sugars continue to remain erratic given patient's erratic eating behavior. Lantus 15 mg BID, Increase ISS at high dose protocol. Appreciate podiatry, orthopedic, cardiology, ID recommendations. Code Status: DNR/DNI. Diet: Carb consistent cardiac DVT PPx: Heparin GI PPx: None Discharge planning: Patient will need extensive wound care given osteomyelitis and abscess, post infected hardware removal along with prolonged IV antibiotic course. [facility] vs. Outpatient infusions. Attestations Medical Necessity Statement*: Further hospitalization for management of osteomyelitis, hardware infection , CHF, in setting of ischemic cardiomyopathy, positive stress test. Time Spent in Patient Care: Greater than 35 minutes Coding Level of Care Code Acute Code for Chg Fwd Diagnoses Status post hardware removal Z98.890 Chronic ulcer of right foot due to diabetes mellitus E11.621; L97.519 Osteomyelitis M86.9 Infected hardware in left lower extremity T84.7XXA Encounter type: initial encounter Abscess L02.91 Non-healing wound of left lower extremity S81.802A Acute respiratory failure J96.00 Acute diastolic CHF (congestive heart failure) I50.31 Ground glass opacity present on imaging of lung R91.8 Transaminitis R74.01 Alkaline phosphatase elevation R74.8 Bilateral pleural effusion J90 Hepatitis C B19.20 Abnormal nuclear stress test R94.39
[2022-05-17] MEDS: nicotine 21 mg Patch 1 PATCH TRANSDERMA (18:35)
[2022-05-17 20:30] LABS: Glucose Point of Care 141 mg/dL (70-110)
[2022-05-18] VITALS (10 sets, daily range): BP systolic 136–154; BP diastolic 77–98; PULSE 73–105; RESP 14–20; TEMP 36.7–38.1; O2SAT 93–98
[2022-05-18] MEDS: acetaminophen 325 mg Tablet 650 MG PO (01:39)
[2022-05-18 01:55] LABS: Vancomycin Trough 14.4 ug/mL (10-15)
[2022-05-18] MEDS: vancomycin 1,250 MG/250 ML PIGGYBACK 250 MG IV ×2 (02:12→11:24)
[2022-05-18 02:21] LABS: Amphetamines Screen Urine Negative (Negative); Barbiturates Screen Urine Negative (Negative); Benzodiazepines Screen Urine Negative (Negative); Cocaine Screen Urine Negative (Negative); Opiate Screen Urine Positive (Negative); PCP Screen Urine Negative (Negative); THC Screen Urine Positive (Negative)
[2022-05-18 02:28] LABS: Add Urine Microscopic? YES; Bilirubin Urine Neg (Negative); Blood Urine 2+ (Negative); Glucose Urine UA Norm (Normal); Ketones Urine Negative (Negative); Leukocyte Esterase Urine Negative (Negative); Nitrate Urine Negative (Negative); Protein Urine 2+ (Negative); Specific Gravity, Urine 1.025 (1.005-1.030); Urine Appearance Clear (CLEAR); Urine Color Yellow (Yellow); Urobilinogen Urine 4 mg/dL (Negative); pH Urine 5 (5-7)
[2022-05-18 02:30] LABS: Add Urine Culture? No; Bacteria Urine TRACE /hpf; Hyaline Casts Urine 0-4 /lpf; RBC Urine 0-4 /hpf (0-2); Squamous Epithelial Cell Urine 0-4 /hpf (0-5); WBC Urine 0-4 /hpf (0-5)
[2022-05-18] MEDS: heparin 5,000 unit/mL INJ 1 mL 5000 UNIT SUBCUT ×2 (06:07→18:29)
[2022-05-18 06:45] LABS: Glucose Point of Care 113 mg/dL (70-110)
--- NOTE | 2022-05-18 07:24 | P.PN_ITS ---
Subjective Subjective: Patient seen at bedside this morning. Appears to be resting comfortably. States that both legs are hurting him left worse than right. He denies any overnight events. He expresses his desire to leave the hospital. He states that he will comply with the treatment plan as he does want to get bet ter. Vitals/I&O/Wt Last Vital Signs Temp 99.2 F 05/18/22 04:00 Pulse 97 05/18/22 04:00 Resp 18 05/18/22 04:00 BP 154/98 05/18/22 04:00 Pulse Ox 96 05/18/22 04:00 O2 Del Method 05/17/22 20:00 O2 Flow Rate 2 05/17/22 20:00 FiO2 30 05/11/22 21:12 05/17/22 05/18/22 05/18/22 22:59 06:59 14:59 Intake Total 730 / 1340 250 / 1590 Output Total 500 / 1150 525 / 1675 Balance 230 / 190 -275 / -85 Weight last 48 hrs Weight 153 lb 9.6 oz Weight 253 lb 8 oz Physical Exam Narrative: GENERAL: A&O x 3 VASCULAR: DP/PT pulses palpable 2/4 with CFT intact, <3seconds to distal digits DERMATOLOGICAL: Right hallux wound dressing clean, dry, intact with no strikethrough. No proximal streaking to the right lower extremity MUSCULOSKELETAL: Pain with palpation of right hallux isolated to the plantar right hallux IPJ fissure. 5/5 muscle strength in all 4 quadrants of the lower extremity when tested against resistance NEUROLOGICAL: Neurological sensation to the affected foot and ankle is diminished through L4-S1 dermatomes via 10g SWMF, diminished sensation extends proximally to the level of the midfoot Data 05/16/22 05:00 05/16/22 05:00 Micro: Microbiology 05/12/22 19:56 Anaerobic Culture - Preliminary Leg - #2 05/12/22 20:06 Anaerobic Culture - Preliminary Leg - #1 05/12/22 20:06 Gram Stain - Final Leg - #2 Anaerobic Culture - Preliminary Wound Culture - Final Strep pyogenes (grp a) A&P Assessment and plan (1) Diabetic peripheral neuropathy associated with type 2 diabetes mellitus: (2) Chronic ulcer of right foot due to diabetes mellitus: (3) Pain of right foot: (4) Hepatitis C: (5) DM type 2 (diabetes mellitus, type 2): Plan -S/p right hallux wound debridement DOS: 05/12/2022 -Labs and vitals reviewed -WBC 14.7 VSS -Diet: Okay for diet from podiatry standpoint. No further surgical intervention by podiatry during this admission -Weight bearing: Weightbearing as tolerated to right foot -Dressings: Betadine wet-to-dry every other day. -Discharge plan: Patient is okay to discharge from a podiatry standpoint. If patient goes to SNF they will need to perform every other day dressing changes. Wound care dressings consisting of Betadine wet-to-dry -Given stability of right foot ulceration, podiatry will sign off. Please reconsult if needed. Attestations Medical Necessity Statement*: See above Coding Level of Care Code Acute Code for [facility] Fwd Diagnoses Diabetic peripheral neuropathy associated with type 2 diabetes mellitus E11.42 Chronic ulcer of right foot due to diabetes mellitus E11.621; L97.519 Pain of right foot M79.671 Hepatitis C B19.20 DM type 2 (diabetes mellitus, type 2) E11.9
[2022-05-18] MEDS: ferrous gluconate 324 mg Tablet PO ×2 (08:15→18:29)
[2022-05-18] MEDS: carvedilol 6.25 mg Tablet PO ×2 (08:15→18:29)
[2022-05-18] MEDS: HYDROcodone-acetaminophen 5-325 mg Tablet 1 TAB PO ×2 (08:15→14:15)
[2022-05-18] MEDS: losartan 50 mg Tablet PO (08:15)
[2022-05-18] MEDS: FUROsemide 40 mg Tablet PO (08:15)
[2022-05-18] MEDS: guaiFENesin 600 mg Tablet PO ×2 (08:15→18:29)
[2022-05-18] MEDS: insulin glargine 100 units/1 mL 15 UNIT SUBCUT ×2 (08:16→21:49)
[2022-05-18] MEDS: aspirin 81 mg EC Tablet PO (08:16)
[2022-05-18] MEDS: budesonide 0.5 mg/2 mL Neb INHALATION ×2 (08:40→21:28)
[2022-05-18 11:26] LABS: Glucose Point of Care 290 mg/dL (70-110)
[2022-05-18] MEDS: insulin lispro 100 unit/1 mL SUBCUT ×2 (14:11→21:49)
[2022-05-18 17:12] LABS: Glucose Point of Care 109 mg/dL (70-110)
[2022-05-18] MEDS: nicotine 21 mg Patch 1 PATCH TRANSDERMA (18:29)
[2022-05-18] MEDS: vancomycin 1,250 MG/250 ML PIGGYBACK 200 MG IV (18:30)
[2022-05-18 20:54] LABS: Glucose Point of Care 222 mg/dL (70-110)
--- NOTE | 2022-05-18 21:06 | P.PN_ITS ---
Subjective Subjective: Last night reported some confusion, this morning he appears to be alert and oriented, lucid, his usual self. His wounds have been healing well after removal of hardware in the left leg and debridement under the right great toe. He is hoping for approval to go to [facility] as she is concerned about how he would be able to continue intravenous antibiotics otherwise. Medications: Reviewed: Yes Vitals/I&O/Wt Last Vital Signs Temp 99.1 F 05/18/22 19:28 Pulse 97 05/18/22 19:28 Resp 14 05/18/22 19:28 BP 139/83 05/18/22 19:28 Pulse Ox 93 05/18/22 19:28 O2 Del Method 05/18/22 19:28 O2 Flow Rate 2 05/17/22 20:00 FiO2 30 05/11/22 21:12 05/18/22 05/18/22 05/18/22 06:59 14:59 22:59 Intake Total 250 / 1590 1700 / 1700 250 / 1950 Output Total 525 / 1675 1999 / 1999 800 / 2800 Balance -275 / -85 -300 / -300 -550 / -850 Weight last 48 hrs Weight 69.672 kg Weight 114.986 kg Physical Exam Narrative: Filing his nails. Const: COMMON NORMALS: patient oriented x3 and alert GENERAL APPEARANCE: cooperative ORIENTATION/CONSCIOUSNESS: Yes awake HENMT: COMMON NORMALS: oropharynx normal Resp: AUSCULTATION: rhonchi, wheezes and diminished lung sounds Cardio: COMMON NORMALS: regular rhythm, S1 normal heart sound present, S2 normal heart sound present and No murmurs present (Cardio) RATE: tachycardic RHYTHM: regular rhythm HEART SOUNDS: S1 normal heart sound present and S2 normal heart sound present GI: COMMON NORMALS: Normal to inspection, nondistended, normoactive bowel sounds present, Soft to palpation and non-tender PALPATION: Yes Soft to p alpation Extremity: COMMON NORMALS: no joint enlargement and no pedal edema Neuro: COMMON NORMALS: patient oriented x3 and moves all extremities SENSORIUM/ORIENTATION: Yes alert Skin: COMMON NORMALS: no rashes or lesions noted GENERAL SKIN EXAM: no rashes or lesions noted OTHER: Healing surgical wound left mata. No drainage. No bleeding. Dressing over right hallux. No proximal erythema or swelling. Data 05/16/22 05:00 05/16/22 05:00 Micro: Microbiology 05/12/22 20:06 Gram Stain - Final Leg - #2 Anaerobic Culture - Preliminary Wound Culture - Final Strep pyogenes (grp a) 05/12/22 19:56 Anaerobic Culture - Preliminary Leg - #2 05/12/22 20:06 Anaerobic Culture - Preliminary Leg - #1 A&P Assessment and plan (1) Status post hardware removal: Strep pyogenes growing in wound culture from 05/12. Continue vancomycin. Continue arrangements for LTAC for completion of IV antibiotic care and skilled care with wound care and rehabilitation. Continue physical therapy. (2) Chronic ulcer of right foot due to diabetes mellitus: (3) Osteomyelitis: (4) Infected hardware in left lower extremity: Qualifiers: Encounter type: initial encounter Qualified Code(s): T84.7XXA - Infection and inflammatory reaction due to other internal orthopedic prosthetic devices, implants and grafts, initial encounter (5) Abscess: (6) Non-healing wound of left lower extremity: (7) Acute respiratory failure: (8) Acute diastolic CHF (congestive heart failure): As above. (9) Ground glass opacity present on imaging of lung: (10) Transaminitis: With untreated hepatitis C. Follow-up liver parameters. (11) Alkaline phosphatase elevation: (12) Bilateral pleural effusion: (13) Hepatitis C: (14) Abnormal nuclear stress test: Plan 56-year-old male with past medical history of diabetes, chronic ulcers of both lower extremities, nonhealing lower extremity wounds, untreated hepatitis C, osteomyelitis with infected hardware, who was admitted for osteomyelitis and infected hardware of the left lower extremity. Past history of poor medical adherence at home. Has been adhering well with treatment while in the hospital. Lexiscan stress test positive. Appreciate cardiology recommendations. Given history of noncompliance and recent meth abuse plan for treatment medically for now. Discussed above with patient and patient's spouse as well. Continue with aspirin, beta-johan. Statin on hold given transaminitis secondary to history of hepatitis C. Patient is chest pain-free. Blood pressure is better controlled but still mildly elevated. Losartan increased to 50 mg daily. Switch from metoprolol to Coreg 6.25 mg twice daily. Blood sugars continue to remain erratic given patient's erratic eating behavior. Lantus 15 mg BID, Increase ISS at high dose protocol. Appreciate podiatry, orthopedic, cardiology, ID recommendations. Attestations Medical Necessity Statement*: Continue intravenous antibiotic therapy for left lower extremity deep infection status post hardware removal after rest. Hardware infection, wound care, arrangements for continued IV antibiotic therapy, skilled care and rehabilitation after discharge. Coding Level of Care Code Acute Code for Chg Fwd Diagnoses Status post hardware removal Z98.890 Chronic ulcer of right foot due to diabetes mellitus E11.621; L97.519 Osteomyelitis M86.9 Infected hardware in left lower extremity T84.7XXA Encounter type: initial encounter Abscess L02.91 Non-healing wound of left lower extremity S81.802A Acute respiratory failure J96.00 Acute diastolic CHF (congestive heart failure) I50.31 Ground glass opacity present on imaging of lung R91.8 Transaminitis R74.01 Alkaline phosphatase elevation R74.8 Bilateral pleural effusion J90 Hepatitis C B19.20 Abnormal nuclear stress test R94.39
[2022-05-19] VITALS (10 sets, daily range): BP systolic 137–169; BP diastolic 81–107; PULSE 83–105; RESP 14–20; TEMP 36.6–37; O2SAT 92–98
[2022-05-19] MEDS: HYDROcodone-acetaminophen 5-325 mg Tablet 1 TAB PO (00:53)
[2022-05-19 00:58] LABS: Vancomycin Trough 20.9 ug/mL (10-15)
[2022-05-19] MEDS: vancomycin 1,000 MG in sodium chloride 0.9% 250 ML 250 MG IV ×3 (02:47→17:49)
[2022-05-19] MEDS: heparin 5,000 unit/mL INJ 1 mL 5000 UNIT SUBCUT ×2 (05:48→17:49)
[2022-05-19 06:42] LABS: Glucose Point of Care 217 mg/dL (70-110)
[2022-05-19] MEDS: budesonide 0.5 mg/2 mL Neb INHALATION (07:58)
[2022-05-19] MEDS: insulin lispro 100 unit/1 mL SUBCUT ×3 (08:48→22:17)
[2022-05-19] MEDS: ferrous gluconate 324 mg Tablet PO ×2 (08:49→17:49)
[2022-05-19] MEDS: guaiFENesin 600 mg Tablet PO ×2 (08:49→17:49)
[2022-05-19] MEDS: losartan 50 mg Tablet PO (08:49)
[2022-05-19] MEDS: aspirin 81 mg EC Tablet PO (08:49)
[2022-05-19] MEDS: FUROsemide 40 mg Tablet PO (08:50)
[2022-05-19] MEDS: carvedilol 6.25 mg Tablet PO ×2 (08:53→17:49)
[2022-05-19] MEDS: insulin glargine 100 units/1 mL 15 UNIT SUBCUT ×2 (08:54→20:31)
[2022-05-19 11:51] LABS: Glucose Point of Care 98 mg/dL (70-110)
[2022-05-19] MEDS: acetaminophen 325 mg Tablet 650 MG PO ×2 (13:56→20:30)
[2022-05-19 17:38] LABS: Glucose Point of Care 165 mg/dL (70-110)
--- NOTE | 2022-05-19 20:22 | PM.PN ---
Subjective Subjective: Reports he is doing okay. Denies any new pain or discomfort. No drainage from his wounds on his leg. Denies chest pain or pressure, no trouble breathing. Medications: Reviewed: Yes Vitals/I&O/Wt Last Vital Signs Temp 98 F 05/19/22 12:00 Pulse 105 H 05/19/22 14:00 Resp 19 H 05/19/22 12:00 BP 169/107 05/19/22 12:00 Pulse Ox 96 05/19/22 12:00 O2 Del Method 05/19/22 07:59 O2 Flow Rate 2 05/17/22 20:00 FiO2 30 05/11/22 21:12 05/19/22 05/19/22 05/19/22 06:59 14:59 22:59 Intake Total 250 / 2200 250 / 250 250 / 500 Output Total 1100 / 4200 700 / 700 500 / 1200 Balance -850 / -2000 -450 / -450 -250 / -700 Weight last 48 hrs Weight 71.271 kg Weight 69.672 kg Physical Exam Const: COMMON NORMALS: patient oriented x3 and alert GENERAL APPEARANCE: cooperative ORIENTATION/CONSCIOUSNESS: Yes awake HENMT: COMMON NORMALS: oropharynx normal Resp: AUSCULTATION: rhonchi, wheezes and diminished lung sounds Cardio: COMMON NORMALS: regular rhythm, S1 normal heart sound present, S2 normal heart sound present and No murmurs present (Cardio) RATE: tachycardic RHYTHM: regular rhythm HEART SOUNDS: S1 normal heart sound present and S2 normal heart sound present GI: COMMON NORMALS: Normal to inspection, nondistended, normoactive bowel sounds present, Soft to palpation and non-tender PALPATION: Yes Soft to palpation Extremity: COMMON NORMALS: no joint enlargement and no pedal edema Neuro: COMMON NORMALS: patient oriented x3 and moves all extremities SENSORIUM/ORIENTATION: Yes alert Skin: COMMON NORMALS: no rashes or lesions noted GENERAL SKIN EXAM: no rashes or lesions noted OTHER: Healing surgical wound left mata. No drainage. No bleeding. Dressing over right hallux. No proximal erythema or swelling. Data 05/16/22 05:00 05/16/22 05:00 Micro: Microbiology 05/12/22 19:56 Anaerobic Culture - Preliminary Leg - #2 05/12/22 20:06 Gram Stain - Final Leg - #2 Anaerobic Culture - Preliminary Wound Culture - Final Strep pyogenes (grp a) 05/12/22 20:06 Anaerobic Culture - Preliminary Leg - #1 A&P Assessment and plan (1) Status post hardware removal: Strep pyogenes growing in wound culture from 05/12. Continue vancomycin for staph coverage due to elevated suspicion of staphylococcal infection. Continue arrangements for LTAC for completion of IV antibiotic care and skilled care with wound care and rehabilitation. Continue physical therapy. (2) Chronic ulcer of right foot due to diabetes mellitus: (3) Osteomyelitis: (4) Infected hardware in left lower extremity: Qualifiers: Encounter type: initial encounter Qualified Code(s): T84.7XXA - Infection and inflammatory reaction due to other internal orthopedic prosthetic devices, implants and grafts, initial encounter (5) Abscess: (6) Non-healing wound of left lower extremity: (7) Acute respiratory failure: (8) Acute diastolic CHF (congestive heart failure): As above. (9) Ground glass opacity present on imaging of lung: (10) Transaminitis: With untreated hepatitis C. Follow-up liver parameters. (11) Alkaline phosphatase elevation: (12) Bilateral pleural effusion: (13) Hepatitis C: (14) Abnormal nuclear stress test: Plan 56-year-old male with past medical history of diabetes, chronic ulcers of both lower extremities, nonhealing lower extremity wounds, untreated hepatitis C, osteomyelitis with infected hardware, who was admitted for osteomyelitis and infected hardware of the left lower extremity. Past history of poor medical adherence at home. Has been adhering well with treatment while in the hospital. Lexiscan stress test positive. Appreciate cardiology recommendations. Given history of noncompliance and recent meth abuse plan for treatment medically for now. Discussed above with patient and patient's spouse as well. Continue with aspirin, beta-johan. Statin on hold given transaminitis secondary to history of hepatitis C. Patient is chest pain-free. Blood pressure is better controlled but still mildly elevated. Losartan increased to 50 mg daily. Switch from metoprolol to Coreg 6.25 mg twice daily. Blood sugars continue to remain erratic given patient's erratic eating behavior. Lantus 15 mg BID, Increase ISS at high dose protocol. Appreciate podiatry, orthopedic, cardiology, ID recommendations. Attestations Medical Necessity Statement*: Continue intravenous antibiotic therapy for left lower extremity deep infection status post hardware removal after rest.? Hardware infection, wound care, arrangements for continued IV antibiotic therapy, skilled care and rehabilitation after discharge. Coding Level of Care Code Acute Code for Chg Fwd Diagnoses Status post hardware removal Z98.890 Chronic ulcer of right foot due to diabetes mellitus E11.621; L97.519 Osteomyelitis M86.9 Infected hardware in left lower extremity T84.7XXA Encounter type: initial encounter Abscess L02.91 Non-healing wound of left lower extremity S81.802A Acute respiratory failure J96.00 Acute diastolic CHF (congestive heart failure) I50.31 Ground glass opacity present on imaging of lung R91.8 Transaminitis R74.01 Alkaline phosphatase elevation R74.8 Bilateral pleural effusion J90 Hepatitis C B19.20 Abnormal nuclear stress test R94.39
[2022-05-19 20:39] LABS: Glucose Point of Care 174 mg/dL (70-110)
[2022-05-20] VITALS (8 sets, daily range): BP systolic 153–167; BP diastolic 73–101; PULSE 70–108; RESP 16–21; TEMP 36.4–36.8; O2SAT 92–97
[2022-05-20 01:56] LABS: Vancomycin Trough 15.3 ug/mL (10-15)
[2022-05-20] MEDS: vancomycin 1,000 MG in sodium chloride 0.9% 250 ML 250 MG IV ×2 (02:51→09:59)
[2022-05-20] MEDS: heparin 5,000 unit/mL INJ 1 mL 5000 UNIT SUBCUT (06:04)
[2022-05-20 06:29] LABS: Glucose Point of Care 209 mg/dL (70-110)
[2022-05-20] MEDS: budesonide 0.5 mg/2 mL Neb INHALATION (08:35)
[2022-05-20] MEDS: FUROsemide 40 mg Tablet PO (08:59)
[2022-05-20] MEDS: losartan 50 mg Tablet PO (08:59)
[2022-05-20] MEDS: ferrous gluconate 324 mg Tablet PO (09:00)
[2022-05-20] MEDS: carvedilol 6.25 mg Tablet PO (09:00)
[2022-05-20] MEDS: guaiFENesin 600 mg Tablet 1200 MG PO (09:00)
[2022-05-20] MEDS: aspirin 81 mg EC Tablet PO (09:00)
[2022-05-20] MEDS: insulin glargine 100 units/1 mL 15 UNIT SUBCUT (09:00)
[2022-05-20] MEDS: insulin lispro 100 unit/1 mL SUBCUT (09:01)
--- NOTE | 2022-05-20 10:46 | XR_ITS ---
WS: [id number] XR chest 1V portable [id number] REASON FOR EXAM: Dyspnea FINDINGS: Right arm PICC line in place with the tip of the catheter in the superior vena cava at the level of t he kati. Compared to the previous examination of 05/13/2022, there appears to have been further resolution of s mall bilateral pleural effusions. Interstitial lung opacities in both lower lungs appear somewhat more prominent than on the previous e xamination however this may be due to technique. No other interval change or new finding. XR/XR chest 1V portable [id number] IMPRESSION: Compared with previous examination of 05/11/2022 there is been progressive improv ement in the left lower lung interstitial opacities. On today's examination the interstitial basilar opacities appear more prominent than on the most recent p revious examination of 05/13/2017. This may be due to different portable techniq ue.
--- NOTE | 2022-05-20 11:58 | PM.TDS ---
Transfer Summary Providers Date of Admission: 05/09/22 14:22 Date of Discharge/Transfer: 05/20/22 Attending Provider at Admission: Juan M Muñoz Attending Provider at Transfer: Juan M Muñoz Transfer Plans: Anticipated date of transfer: 05/20/22. Diagnoses at Discharge Discharge Diagnosis (1) Osteomyelitis: Status: Acute (2) Status post hardware removal: Status: Acute (3) Chronic ulcer of right foot due to diabetes mellitus: Status: Acute (4) Infected hardware in left lower extremity: Status: Acute Qualifiers: Encounter type: initial encounter Qualified Code(s): T84.7XXA - Infection and inflammatory reaction due to other internal orthopedic prosthetic devices, implants and grafts, initial encounter (5) Abscess: Status: Acute (6) Non-healing wound of left lower extremity: Status: Acute (7) Acute respiratory failure: Status: Acute (8) Acute diastolic CHF (congestive heart failure): Status: Acute (9) Ground glass opacity present on imaging of lung: Status: Acute (10) Transaminitis: Status: Acute (11) Alkaline phosphatase elevation: Status: Acute (12) Bilateral pleural effusion: Status: Acute (13) Hepatitis C: Status: Acute (14) Abnormal nuclear stress test: Status: Acute Hospital Course Hospital Course Pleasant 56-year-old gentleman with history of untreated diabetes, HTN, smoking, methamphetamine use, untreated hepatitis C, recent hospitalization due to sepsis, cellulitis of the right foot and fissure and wound on proximal right hallux with attempted partial debridement, as well as nonhealing chronically draining wound of left lower extremity at the tibia proximal to the knee past history of copperhead bite as possible initial etiology reduction of infection but also with presence of orthopedic hardware in the left lower extremity with suspicion of osteomyelitis and possible hardware infection. He ended up leaving AMA during last hospitalization. He did not fill his prescriptions. He does state that the right foot infection has subsided. The fissure is still present. Left lower leg wound unchanged, still chronically draining. Blood cultures from last admission were negative. Wound culture from leg grew strep pyogenes. He returned to the hospital on 05/09 due to significant dyspnea, with new oxygen requirement, initially started on 4 L oxygen, but ended up requiring NIPPV support. As per his wishes CODE STATUS is DNR/DNI. He was found to be in acute CHF, with vascular congestion and with bilateral large pleural effusions, bilateral lower lobe atelectasis on chest imaging, CT angiogram of the chest due to abnormal D-dimer was negative for PE. Groundglass interstitial densities in both lungs. Negative for influenza and COVID-19. He had no chest pain or pressure. Had generalized body ache. With bronchospastic component with wheezing, rhonchi, possible infectious bronchitis. He did not fill antibiotic prescriptions after leaving the hospital, however, cellulitis and right foot had resolved. Persistent fissure, callus and pain of the dorsal right hallux at presentation. Also persistent purulent drainage from left proximal tibia wound. Is started on IV diuretics, assist with TTE, was treated empirically with antibiotics initially Zosyn and vancomycin, breathing treatments, other supportive care. His respiratory condition gradually improved. Weaned off NIPPV and eventually weaned off oxygen entirely, doing well on room air. He was found to have osteomyelitis with marked cortical thickening, osteosclerosis and periosteal reaction in proximal tibia adjacent to proximal interlocking screws of old orthopedic hardware. Skin thickening induration with cellulitis and suspected phlegmon of the anteromedial proximal tibia with concern for small abscess along anteromedial tibia on CT left lower extremity. Additionally assessed by orthopedics and underwent infected hardware removal on 05/12 with removal of distal screws x2, proximal screws x2 and tibial arturo through 5 separate incisions. From orthopedic standpoint he may be weightbearing as tolerated. Saeid can be removed at 2 weeks from surgical procedure. Elevate left lower extremity. Cultures eventually growing strep pyogenes. He was assessed by infectious disease specialist. Due to high clinical suspicion of MRSA infection he continues on vancomycin. Zosyn was discontinued. He is recommended to complete vancomycin course over the next 6 weeks, goal trough 15-20. He during the same time underwent also right hallux wound excisional debridement down to subcutaneous tissue by podiatry. He can be weightbearing as tolerated on the right foot. Dressing changes to continue every other day. Wound care with Betadine and wet-to-dry dressing. Follow-up with podiatry. TTE showed EF 52%, relative hypokinesia of inferolateral wall segment, thickened mitral valve, thickened aortic valve. No pericardial effusion. No intracardiac masses. He underwent stress testing with nuclear imaging which showed small area of reversible defect in LV apex and apical lateral segment, suggestive of ischemia in distribution of left circumflex artery. EF on nuclear imaging 30%. Hypokinesia of left ventricle. Mildly dilated LV cavity with end-systolic volume of 98 mL. He was additionally assessed by cardiology with recommendation for continued medical therapy continues on aspirin, carvedilol dose was uptitrated to 6.25 mg to also allow for better control of hypertension also continues on 50 mg losartan. Was not started on statin due to liver parameters normality likely secondary to hepatitis C. Lasix transition to oral 40 mg daily. Asked to follow-up with cardiology in office for reassessment and optimization of hypertension and other cardiovascular risk factors. He has denied any IV drug use. He would benefit from abstaining from amphetamine which he has smoked in the past but states has not used since New Year's. Would benefit from quitting smoking as well. PICC line was placed on 05/13 and should be removed after course is complete prior to discharge. He should follow-up with infectious disease and orthopedics. With need for prolonged IV antibiotic course and rehabilitation he is kindly accepted for further care at a long-term acute care facility and discussed with accepting physician. For iron deficiency anemia started on iron which will subsequently benefit from further evaluation. He was subsequently also benefit from follow-up to arrange for treatment of hepatitis C. Physical Exam Narrative: Ex- and brother at bedside. Const: COMMON NORMALS: patient oriented x3 and alert GENERAL APPEARANCE: cooperative ORIENTATION/CONSCIOUSNESS: Yes awake HENMT: COMMON NORMALS: oropharynx normal Resp: EFFORT & INSPECTION: Yes able to speak in complete sentences AUSCULTATION: rhonchi and no wheezes Cardio: COMMON NORMALS: regular rhythm, S1 normal heart sound present, S2 normal heart sound present and No murmurs present (Cardio) RATE: tachycardic RHYTHM: regular rhythm HEART SOUNDS: S1 normal heart sound present and S2 normal heart sound present GI: COMMON NORMALS: Normal to inspection, nondistended, normoactive bowel sounds present, Soft to palpation and non-tender PALPATION: Yes Soft to palpation Extremity: COMMON NORMALS: no joint enlargement and no pedal edema Neuro: COMMON NORMALS: patient oriented x3 and moves all extremities SENSORIUM/ORIENTATION: Yes alert Skin: COMMON NORMALS: no rashes or lesions noted GENERAL SKIN EXAM: no rashes or lesions noted OTHER: Healing surgical wound left proximal tibia as well as proximal anteromedial tibia. Saeid in place. No drainage. No bleeding. No surrounding erythema or swelling. Some drainage at lateral distal tibia wound. Dressing over right hallux. No drainage. No proximal erythema or swelling. TS Data Studies Completed and Pending Pending at discharge Category Date Time Status Sestamibi Stress Test Request Routine Exams 05/13/22 12:30 Stop Req Abscess Culture and Gram Stain Routine Lab 05/12/22 21:46 Uncollected Anaerobic Culture Routine Lab 05/12/22 20:06 Results Anaerobic Culture Routine Lab 05/13/22 12:22 Results Anaerobic Culture Routine Lab 05/13/22 12:22 Results Wound Culture Routine Lab 05/10/22 20:12 Uncollected Wound Culture and Gram Stain Routine Lab 05/12/22 20:06 Results Labs from last 24 hours 05/20/22 05/20/22 05/19/22 06:23 01:28 20:29 POC Glucose 209 H 174 H Vancomycin Trough 15.3 H 05/19/22 17:21 POC Glucose 165 H Vancomycin Trough Completed Studies During Hospitalization Category Date Time Status CT lower leg LT w con [id number] Routine Cat Scan 05/10/22 14:56 Completed CTA chest [CT angio chest PE protcl [id number]] Stat Cat Scan 05/09/22 12:58 Completed CXRP [XR chest 1V portable [id number]] Stat Exams 05/20/22 10:46 Completed Sestamibi Stress Test Request Routine Exams 05/14/22 07:58 Completed XR chest 1V portable [id number] Routine Exams 05/11/22 06:00 Completed XR chest 1V portable [id number] Routine Exams 05/13/22 10:07 Completed XR chest 1V portable [id number] Stat Exams 05/09/22 10:54 Completed XR tibia fibula LT 2V [id number] Routine Exams 05/12/22 21:24 Completed XR tibia fibula LT 2V [id number] Urgent Exams 05/11/22 17:12 Completed NM margarita perf SPECT r/s* [id number] Routine Nuc Med 05/14/22 12:30 Completed CV. echo limited [id number] Stat Ultrasound 05/09/22 15:17 Completed Laboratory Last Values WBC 14.7 10^3/uL (4.0-10.0) H 05/16/22 05:00 RBC 3.80 10^6/uL (4.1-5.3) L 05/16/22 05:00 Hgb 11.9 g/dL (11.7-16.6) 05/16/22 05:00 Hct 36.2 % (42.0-52.0) L 05/16/22 05:00 MCV 95.3 fl (80-94) H 05/16/22 05:00 MCH 31.3 pg (28.0-34.0) 05/16/22 05:00 MCHC 32.9 g/dL (30.0-36.0) 05/16/22 05:00 RDW 13.5 % (12.1-15.1) 05/16/22 05:00 Plt Count 184 10^3/cmm (130-400) 05/16/22 05:00 MPV 12.3 fL (7.4-10.4) H 05/16/22 05:00 Neut % (Auto) 72.6 % 05/16/22 05:00 Lymph % (Auto) 17.6 % 05/16/22 05:00 [place] % (Auto) 8.6 % 05/16/22 05:00 Eos % (Auto) 0.6 % 05/16/22 05:00 Baso % (Auto) 0.1 % 05/16/22 05:00 Neut # (Auto) 10.64 10^3/uL (1.8-7.7) H 05/16/22 05:00 Lymph # (Auto) 2.6 10^3/uL (0.8-4.8) 05/16/22 05:00 [place] # (Auto) 1.3 10^3/uL (0.2-0.9) H 05/16/22 05:00 Eos # (Auto) 0.1 10^3/uL (0.0-0.8) 05/16/22 05:00 Baso # (Auto) 0.0 10^3/uL (0.0-0.1) 05/16/22 05:00 Nucleated RBC % (auto) 0 % 05/16/22 05:00 Nucleated RBCs # 0.0 /100WBC 05/16/22 05:00 PT 13.20 SECONDS (12.1-14.9) 05/09/22 12:08 INR 0.97 (0.8-1.2) 05/09/22 12:08 D-Dimer 1.33 ug/mIFEU (0-0.59) H 05/09/22 12:08 Specimen Type Arterial 05/09/22 11:01 Sample Site Radial, right 05/09/22 11:01 ABG pH 7.46 (7.35-7.45) H 05/09/22 11:01 ABG pCO2 40.8 mmHg (35-45) 05/09/22 11:01 ABG pO2 55.5 mmHg (80.0-100.0) L 05/09/22 11:01 ABG HCO3 29.3 mmol/L (22-26) H 05/09/22 11:01 ABG Base Excess 5.0 mmol/L (-2.0-2.0) H 05/09/22 11:01 Frandy Test Pos 05/09/22 11:01 Hematocrit 38.9 % (42-52) L 05/09/22 11:01 O2 Delivery Device Nc 05/09/22 11:01 O2 Liters/Min 44.0 % 05/09/22 11:01 FiO2 36.0 % 05/09/22 11:01 Lace Mender ID Cak 05/09/22 11:01 Sodium 140 mmol/L (136-145) 05/16/22 05:00 Potassium 4.1 mmol/L (3.5-5.1) 05/16/22 05:00 Chloride 104 mmol/L (98-107) 05/16/22 05:00 Carbon Dioxide 26 mmol/L (22-29) 05/16/22 05:00 Anion Gap 14.1 (5-19) 05/16/22 05:00 BUN 10 mg/dL (6-20) 05/16/22 05:00 Creatinine 0.5 mg/dL (0.7-1.2) L 05/16/22 05:00 GFR Calculation 206.7 mL/min (90-130) H 05/16/22 05:00 Glucose 178 mg/dL (65-115) H 05/16/22 05:00 POC Glucose 209 mg/dL (70-110) H 05/20/22 06:23 Calculated Osmolality 293 mOsm/kg (285-295) 05/16/22 05:00 Calcium 8.3 mg/dL (8.5-10.5) L 05/16/22 05:00 Total Bilirubin 0.4 mg/dL (0.15-1.2) 05/16/22 05:00 AST 37 U/L (0-40) 05/16/22 05:00 ALT 30 U/L (0-41) 05/16/22 05:00 Alkaline Phosphatase 203 U/L (40-130) H 05/16/22 05:00 Creatine Kinase 82 U/L (39-308) 05/16/22 05:00 Troponin T Baseline 26 ng/L (0-15) H 05/09/22 12:08 Troponin T 120 Minute 24.80 ng/L (0-15) H 05/09/22 14:08 Delta Troponin T -1.20 ABS# (0-10) L 05/09/22 14:08 Troponin T Hi Sens 6Hr 27.86 ng/L (0-15) H 05/09/22 18:04 Troponin T Hi Sens 6Hr Delta 1.86 ng/L (0-12) 05/09/22 18:04 NT-Pro-B Natriuret Pep 2567 pg/mL (0-125) H 05/09/22 12:08 Total Protein 7.2 g/dL (6.6-8.7) 05/16/22 05:00 Albumin 2.7 g/dL (3.5-5.2) L 05/16/22 05:00 Globulin 4.5 g/dL (1.3-4.6) 05/16/22 05:00 TSH 0.84 uIU/mL (0.27-4.20) 05/10/22 05:03 Urine Color Yellow (Yellow) 05/18/22 01:43 Urine Appearance Clear (CLEAR) 05/18/22 01:43 Urine pH 5 (5-7) 05/18/22 01:43 Ur Specific [place] 1.025 (1.005-1.030) 05/18/22 01:43 Urine Protein 2+ (Negative) H 05/18/22 01:43 Urine Glucose (UA) Norm (Normal) 05/18/22 01:43 Urine Ketones Negative (Negative) 05/18/22 01:43 Urine Blood 2+ (Negative) H 05/18/22 01:43 Urine Nitrate Negative (Negative) 05/18/22 01:43 Urine Bilirubin Neg (Negative) 05/18/22 01:43 Urine Urobilinogen 4 mg/dL (Negative) H 05/18/22 01:43 Ur Leukocyte Esterase Negative (Negative) 05/18/22 01:43 Urine RBC 0-4 /hpf (0-2) H 05/18/22 01:43 Urine WBC 0-4 /hpf (0-5) H 05/18/22 01:43 Ur Squamous Epith Cells 0-4 /hpf (0-5) H 05/18/22 01:43 Amorphous Sediment Not Reportable 05/18/22 01:43 Urine Bacteria Trace /hpf (NONE) 05/18/22 01:43 Hyaline Casts 0-4 /lpf H 05/18/22 01:43 Vancomycin Trough 15.3 ug/mL (10-15) H 05/20/22 01:28 Urine Opiates Screen Positive ng/mL (Negative) H 05/18/22 01:43 Ur Barbiturates Screen Negative ng/mL (Negative) 05/18/22 01:43 Ur Phencyclidine Scrn Negative ng/mL (Negative) 05/18/22 01:43 Ur Amphetamines Screen Negative ng/mL (Negative) 05/18/22 01:43 U Benzodiazepines Scrn Negative ng/mL (Negative) 05/18/22 01:43 Urine Cocaine Screen Negative ng/mL (Negative) 05/18/22 01:43 U Marijuana (THC) Screen Positive ng/mL (Negative) H 05/18/22 01:43 Coronavirus 229E (PCR) Cancelled 05/10/22 Unknown Influenza Type A Ag negative (Negative) 05/10/22 11:06 Influenza Type B Ag negative (Negative) 05/10/22 11:06 SARS-CoV-2 (PCR) Cancelled 05/10/22 Unknown SARS-CoV-2 Ag (Rapid) negative (Negative) 05/10/22 11:06 Radiology Impressions Chest CTA 05/09/22 12:58 IMPRESSION: 1. Negative for pulmonary embolism. 2. Large bilateral lower lobe pleural effusions. 3. Bilateral lower lobe atelectasis 4. Negative for right heart strain. 5. Ground-glass interstitial densities in both lungs. Lower Extremity CT 05/10/22 14:56 IMPRESSION: 1. There is marked cortical thickening, and ostial sclerosis and periosteal reaction in the proximal tibia adjacent to the tube proximal interlocking screws concerning for chronic osteomyelitis. No acute fracture or new bony destruction. 2. There is skin thickening, induration of the subcutaneous fat and findings of probable cellulitis with soft tissue phlegmon of the anteromedial proximal tibia greatest directly overlying/at the level of the 2 proximal interlocking screws. 3. Although there is artifact from the postoperative hardware, there is concern for small abscess/subperiosteal abscess along the anteromedial tibia measuring 1.2 x 1.8 x 2.5 cm interposed between the tips of the 2 interlocking screws best seen on series 5, image 69. Tibia/Fibula X-Ray 05/12/22 21:24 IMPRESSION: 1. Operative removal of the tibial fusion hardware since previous. 2. No other changes. Chest X-Ray 05/20/22 10:46 IMPRESSION: Compared with previous examination of 05/11/2022 there is been progressive improvement in the left lower lung interstitial opacities. On today's examination the interstitial basilar opacities appear more prominent than on the most recent previous examination of 05/13/2017. This may be due to different portable technique. Recent Clincial Data Last Vital Signs Temp 97.9 F 05/20/22 11:44 Pulse 85 05/20/22 11:44 Resp 16 05/20/22 11:19 BP 167/73 05/20/22 11:44 Pulse Ox 95 05/20/22 11:44 O2 Del Method 05/20/22 08:35 O2 Flow Rate 2 05/19/22 20:00 FiO2 30 05/11/22 21:12 Vital Signs Temp Pulse Resp BP Pulse Ox O2 Del Method 05/20/22 11:44 97.9 F 85 167/73 95 05/20/22 11:19 16 05/20/22 08:59 165/101 05/20/22 08:35 100 16 93 Room Air 05/20/22 08:00 98.2 F 70 165/101 92 05/20/22 08:00 98.2 F 108 H 05/20/22 04:27 97.6 F 96 21 H 153/98 96 05/20/22 00:00 98.1 F 97 20 H 154/91 97 Intake & Output/Weight 05/18/22 05/19/22 05/20/22 05/21/22 06:59 06:59 06:59 06:59 Intake Total 1590 / 1590 2200 / 2200 1710 / 1710 850 / 850 Output Total 1675 / 1675 4200 / 4200 2500 / 2500 800 / 800 Balance -85 / -85 -2000 / -2000 -790 / -790 50 / 50 Weight 69.672 kg 71.271 kg 70.505 kg Vitals Last Vital Signs Temp 97.9 F 05/20/22 11:44 Pulse 85 05/20/22 11:44 Resp 16 05/20/22 11:19 BP 167/73 05/20/22 11:44 Pulse Ox 95 05/20/22 11:44 O2 Del Method 05/20/22 08:35 O2 Flow Rate 2 05/19/22 20:00 FiO2 30 05/11/22 21:12 TS Medications Medications Acetaminophen (Acetaminophen 325 Mg Tablet) 650 mg PO Q6H PRN PRN Reason: Mild/Mod Pain Or Temp >/= 101 Last Admin: 05/19/22 20:30 Dose: 650 mg Albuterol/Ipratropium (Ipratropium-Albuterol 3 Ml Neb) 3 ml INHALATION Q6H PRN PRN Reason: SHORTNESS OF BREATH Albuterol/Ipratropium (Ipratropium-Albuterol 3 Ml Neb) 3 ml INHALATION Q6H.RESP STEPHANIE Aspirin (Aspirin 81 Mg Ec Tablet) 81 mg PO DAILY [facility] Last Admin: 05/20/22 09:00 Dose: 81 mg Budesonide (Budesonide 0.5 Mg/2 Ml Neb) 0.5 mg INHALATION BID.RESPIRATORY [facility] Last Admin: 05/20/22 08:35 Dose: 0.5 mg Carvedilol (Carvedilol 6.25 Mg Tablet) 6.25 mg PO BID [facility] Last Admin: 05/20/22 09:00 Dose: 6.25 mg Dextrose (Dextrose 50% Syringe 50 Ml) 25 ml IVP ONCE PRN; Protocol PRN Reason: hypoglycemia protocol Dextrose (Dextrose 50% Syringe 50 Ml) 50 ml IVP PRN PRN; Protocol PRN Reason: hypoglycemia protocol Ferrous Gluconate (Ferrous Gluconate 324 Mg Tablet) 324 mg PO BIDWM [facility] Last Admin: 05/20/22 09:00 Dose: 324 mg Furosemide (Furosemide 40 Mg Tablet) 40 mg PO DAILY@0800 [facility] Last Admin: 05/20/22 08:59 Dose: 40 mg Glucagon (Glucagon 1 Mg/Ml Inj 1 Ml) 1 mg IM ONCE PRN; Protocol PRN Reason: Adult Acute Hypoglycemia Prot. Guaifenesin (Guaifenesin 600 Mg Tablet) 1,200 mg PO BID [facility] Last Admin: 05/20/22 09:00 Dose: 1,200 mg Heparin Sodium (Porcine) (Heparin 5,000 Unit/Ml Inj 1 Ml) 5,000 unit SUBCUT Q12H [facility] Last Admin: 05/20/22 06:04 Dose: 5,000 unit Hydromorphone HCl (Hydromorphone 4 Mg Tablet) 2 mg PO Q4H PRN PRN Reason: SEVERE PAIN Last Admin: 05/20/22 11:19 Dose: 2 mg Dextrose (D5w) 500 mls @ 100 mls/hr IV ONCE PRN; Protocol PRN Reason: Adult Acute Hypoglycemia Prot Vancomycin HCl 1,000 mg/ (Sodium Chloride) 250 mls @ 250 mls/hr IV Q8H [facility] Last Infusion: 05/20/22 11:21 Dose: Infused Insulin Glargine (Insulin Glargine 100 Units/1 Ml) 15 unit SUBCUT Q12H [facility] Last Admin: 05/20/22 09:00 Dose: 15 unit Insulin Human Lispro (Insulin Lispro 100 Unit/1 Ml) 0 unit SUBCUT WM&BEDTIME [facility]; Protocol Last Admin: 05/20/22 09:01 Dose: 8 unit Losartan Potassium (Losartan 50 Mg Tablet) 50 mg PO DAILY [facility] Last Admin: 05/20/22 08:59 Dose: 50 mg Nicotine (Nicotine 21 Mg Patch) 1 patch TRANSDERMA Q24H [facility] Last Admin: 05/19/22 17:50 Dose: Not Given Nicotine Polacrilex (Nicotine 4 Mg Lozenge) 4 mg MUCOUS MEM Q2H PRN PRN Reason: NICOTINE CRAVINGS Ondansetron HCl (Ondansetron 2 Mg/Ml Sdv 2 Ml) 4 mg IVP Q8H PRN PRN Reason: vomiting, or N/V if npo Ondansetron HCl (Ondansetron 2 Mg/Ml Sdv 2 Ml) 4 mg IVP Q2M PRN PRN Reason: NAUSEA Discontinued Medications Hydrocodone Bitart/Acetaminophen (Hydrocodone-Acetaminophen 5-325 Mg Tablet) 1 tab PO Q6H PRN PRN Reason: MODERATE PAIN Last Admin: 05/19/22 00:53 Dose: 1 tab Albuterol Sulfate (Albuterol 2.5 Mg/3 Ml Neb) 2.5 mg INHALATION ONCE PRN PRN Reason: WHEEZING Albuterol/Ipratropium (Ipratropium-Albuterol 3 Ml Neb) 3 ml INHALATION Q6H.RESP STEPHANIE Last Admin: 05/13/22 14:13 Dose: Not Given Aminophylline (Aminophylline 25 Mg/Ml Sdv 10 Ml) 25 mg IVP Q2M PRN PRN Reason: see dose instructions Stop: 05/15/22 07:57 Benzocaine (Cetylpyridinium Lozenge) 1 each MUCOUS MEM ONCE ONE Stop: 05/12/22 19:31 Last Admin: 05/12/22 22:17 Dose: Not Given Cefazolin Sodium (Cefazolin 1,000 Mg Sdv) Confirm Administered Dose 1,000 mg .ROUTE .STK-MED ONE Stop: 05/12/22 19:20 Last Admin: 05/12/22 22:16 Dose: Not Given Cefazolin Sodium (Cefazolin 2,000 Mg Sdv) 1,000 mg IRRIGATION ONCE ONE Stop: 05/12/22 20:25 Last Admin: 05/12/22 20:36 Dose: 1,000 mg Celecoxib (Celecoxib 200 Mg Capsule) 400 mg PO ONCE ONE Stop: 05/12/22 14:53 Last Admin: 05/12/22 15:04 Dose: 400 mg Dexamethasone (Dexamethasone 4 Mg/Ml Inj) Confirm Administered Dose 4 mg .ROUTE .STK-MED ONE Stop: 05/12/22 20:13 Dexamethasone (Dexamethasone 4 Mg/Ml Inj) 4 mg IVP Q5M PRN PRN Reason: Nausea unrelieved by Reglan Stop: 05/13/22 19:30 Ephedrine Sulfate (Ephedrine 50 Mg/Ml Inj) Confirm Administered Dose 50 mg .ROUTE .STK-MED ONE Stop: 05/12/22 20:17 Famotidine (Famotidine 20 Mg/2 Ml Inj) 20 mg IVP ONCE PRN PRN Reason: HEARTBURN Fentanyl (Fentanyl 50 Mcg/Ml Inj 2ml) 50 mcg IVP Q10M PRN PRN Reason: Preop Pain Fentanyl (Fentanyl 50 Mcg/Ml Inj 2ml) 100 mcg IVP ONCE PRN PRN Reason: Per anesthesia for block Fentanyl (Fentanyl 50 Mcg/Ml Inj 2ml) Confirm Administered Dose 100 mcg .ROUTE .STGameyola-MED ONE Stop: 05/12/22 19:10 Fentanyl (Fentanyl 50 Mcg/Ml Inj 2ml) 50 mcg IVP Q5M PRN PRN Reason: Pain level 6-10 PACU Phase I Stop: 05/13/22 19:30 Last Admin: 05/12/22 21:19 Dose: 50 mcg Fentanyl (Fentanyl 50 Mcg/Ml Inj 2ml) Confirm Administered Dose 100 mcg .ROUTE .STGameyola-MED ONE Stop: 05/12/22 21:19 Last Admin: 05/13/22 00:06 Dose: Not Given Furosemide (Furosemide 10 Mg/Ml Sdv 4ml) 40 mg IVP ONCE ONE Stop: 05/09/22 13:18 Last Admin: 05/09/22 14:00 Dose: 40 mg Furosemide (Furosemide 10 Mg/Ml Sdv 10ml) 60 mg IVP Q12H [facility] Last Admin: 05/12/22 03:52 Dose: 60 mg Glycopyrrolate (Glycopyrrolate 0.2 Mg/Ml Sdv 2 Ml) Confirm Administered Dose 0.4 mg .ROUTE .BleepBleeps-MED ONE Stop: 05/12/22 20:13 Guaifenesin (Guaifenesin 600 Mg Tablet) 600 mg PO BID [facility] Last Admin: 05/19/22 17:49 Dose: 600 mg Hydromorphone HCl (Hydromorphone 1 Mg/Ml Inj 1 Ml) 0.5 mg IVP Q4H PRN PRN Reason: SEVERE PAIN Last Admin: 05/13/22 23:18 Dose: 0.5 mg Hydromorphone HCl (Hydromorphone 1 Mg/Ml Inj 1 Ml) 0.5 mg IVP Q10M PRN PRN Reason: Pain level 7-10 PACU Phase I Stop: 05/13/22 19:30 Hydromorphone HCl (Hydromorphone 1 Mg/Ml Inj 1 Ml) 0.25 mg IVP Q10M PRN PRN Reason: Pain level 4-6 PACU Phase I Stop: 05/13/22 19:30 Hydromorphone HCl (Hydromorphone 1 Mg/Ml Inj 1 Ml) 1 mg IVP Q4H PRN PRN Reason: SEVERE PAIN Last Admin: 05/14/22 23:49 Dose: 1 mg Piperacillin Sod/Tazobactam (Sod 3.375 gm/ Sodium Chloride) 50 mls @ 12.5 mls/hr IV Q8H [facility]; Protocol Last Infusion: 05/15/22 17:25 Dose: Infused Vancomycin/PEG/NADA/Lysine/Water (Vancocin) 1,250 mg in 250 mls @ 250 mls/hr IV Q8H [facility] Last Admin: 05/14/22 06:39 Dose: Not Given Acetaminophen (Acetaminophen) 1,000 mg in 100 mls @ 400 mls/hr IV SECOND BAKER ONE Stop: 05/12/22 15:06 Last Infusion: 05/12/22 15:19 Dose: Infused Sodium Chloride (Sodium Chloride 0.9%) 1,000 mls @ 30 mls/hr IV .Q24H [facility] Stop: 05/13/22 14:59 Last Infusion: 05/13/22 09:14 Dose: Infused Vancomycin/PEG/NADA/Lysine/Water (Vancocin) 1,250 mg in 250 mls @ 250 mls/hr IV ONCE ONE; Protocol Stop: 05/12/22 19:47 Last Infusion: 05/12/22 19:57 Dose: Infused Sodium Chloride (Sodium Chloride 0.9%) 500 mls @ 999 mls/hr IV .Q31M PRN PRN Reason: HYPOTENSION Vancomycin/PEG/NADA/Lysine/Water (Vancocin) 1,250 mg in 250 mls @ 250 mls/hr IV Q12H [facility] Last Admin: 05/16/22 11:05 Dose: 250 mls/hr Vancomycin/PEG/NADA/Lysine/Water (Vancocin) 1,250 mg in 250 mls @ 250 mls/hr IV Q8H [facility] Last Admin: 05/19/22 01:19 Dose: Not Given Insulin Glargine (Insulin Glargine 100 Units/1 Ml) 10 unit SUBCUT BEDTIME [facility] Iohexol (Iohexol 350 Mg/Ml 500 Ml Btl (Per Ml)) 0 ml IV ONCE ONE Stop: 05/09/22 13:33 Last Admin: 05/09/22 13:32 Dose: 76 ml Iohexol (Iohexol 350 Mg/Ml 500 Ml Btl (Per Ml)) 0 ml IV ONCE ONE Stop: 05/10/22 16:27 Last Admin: 05/10/22 16:26 Dose: 100 ml Ipratropium [place] (Ipratropium 0.5 Mg/2.5 Ml Neb) 0.5 mg INHALATION ONCE PRN PRN Reason: WHEEZING Labetalol HCl (Labetalol 5 Mg/Ml Sdv 20ml) 10 mg IVP ONCE ONE Stop: 05/09/22 10:55 Last Admin: 05/09/22 11:49 Dose: 10 mg Labetalol HCl (Labetalol 5 Mg/Ml Sdv 20ml) 10 mg IVP ONCE ONE Stop: 05/09/22 19:10 Last Admin: 05/09/22 19:41 Dose: 10 mg Lidocaine HCl (Lidocaine 1% Inj 20 Ml) 0.1 ml INTRADERMA PRN PRN PRN Reason: anesthetic prior to IV start Stop: 05/13/22 14:51 Lidocaine HCl (Lidocaine 1% Mpf 5 Ml Sdv) Confirm Administered Dose 5 ml .ROUTE .STK-MED ONE Stop: 05/12/22 19:12 Losartan Potassium (Losartan 50 Mg Tablet) 25 mg PO DAILY [facility] Last Admin: 05/14/22 11:25 Dose: 25 mg Meperidine HCl (Meperidine 50 Mg/Ml Inj) 12.5 mg IVP Q5M PRN PRN Reason: Shivering PACU Phase I Stop: 05/13/22 19:30 Metoclopramide HCl (Metoclopramide 5 Mg/Ml Sdv 2 Ml) 10 mg IVP ONCE PRN PRN Reason: N/V if zofran ineffective Metoclopramide HCl (Metoclopramide 5 Mg/Ml Sdv 2 Ml) 10 mg IVP Q5M PRN PRN Reason: Nausea unrelieved by Zofran Stop: 05/13/22 19:30 Metoprolol Tartrate (Metoprolol Tartrate 25 Mg Tablet) 25 mg PO BID@0900,2100 [facility] Last Admin: 05/15/22 10:14 Dose: 25 mg Midazolam HCl (Midazolam 1 Mg/Ml Inj 2 Ml) 2 mg IVP Q5M PRN PRN Reason: Preop Anxiety Midazolam HCl (Midazolam 1 Mg/Ml Inj 5 Ml) 5 mg IVP ONCE PRN PRN Reason: Per anesthesia for block Morphine Sulfate (Morphine 4 Mg/Ml Sdv 1 Ml) 0 mg IVP Q5M PRN PRN Reason: Breakthrough Pain PACU PhaseII Morphine Sulfate (Morphine 4 Mg/Ml Sdv 1 Ml) 2 mg IVP Q2M PRN PRN Reason: Pain level 6-10 PACU Phase I Stop: 05/13/22 19:30 Morphine Sulfate (Morphine 4 Mg/Ml Sdv 1 Ml) 2 mg IVP Q5M PRN PRN Reason: Pain level 2-5 PACU Phase I Stop: 05/13/22 19:30 Nitroglycerin (Nitroglycerin 0.4 Mg Sublingual Tablet) 0.4 mg SUBLINGUAL Q5M PRN PRN Reason: CHEST PAIN Stop: 05/15/22 07:57 Ondansetron HCl (Ondansetron 2 Mg/Ml Sdv 2 Ml) 4 mg IVP Q5M PRN PRN Reason: NAUSEA AND VOMITING Ondansetron HCl (Ondansetron 2 Mg/Ml Sdv 2 Ml) Confirm Administered Dose 4 mg .ROUTE .STGameyola-MED ONE Stop: 05/12/22 20:13 Ondansetron HCl (Ondansetron 2 Mg/Ml Sdv 2 Ml) 4 mg IVP Q5M PRN PRN Reason: Nausea PACU Phase I Stop: 05/13/22 19:30 Ondansetron HCl (Ondansetron 2 Mg/Ml Sdv 2 Ml) 4 mg IVP Q15M PRN PRN Reason: Nausea/Vomiting PACU PHASE II Potassium Chloride (Potassium Chloride Er 20 Meq Tablet) 40 meq PO ONCE ONE Stop: 05/12/22 05:57 Last Admin: 05/12/22 06:39 Dose: 40 meq Propofol (Propofol 10 Mg/Ml Sdv 20 Ml) Confirm Administered Dose 200 mg .ROUTE .STK-MED ONE Stop: 05/12/22 19:11 Regadenoson (Regadenoson 0.4 Mg/5 Ml Syringe) 0.4 mg IVP ONCE PRN PRN Reason: Lexiscan Stress Test Last Admin: 05/14/22 09:55 Dose: 0.4 mg Rocuronium Parnell (Rocuronium 10 Mg/Ml Inj 10ml) Confirm Administered Dose 100 mg .ROUTE .STK-MED ONE Stop: 05/12/22 19:11 Scopolamine (Scopolamine 1.5 Patch) 1 patch TRANSDERMA ONCE PRN PRN Reason: Nausea/ Vomiting Prophylaxis Sugammadex Sodium (Sugammadex 200 Mg/2 Ml Sdv) Confirm Administered Dose 200 mg .ROUTE .STK-MED ONE Stop: 05/12/22 18:26 Allergies No Known Allergies Allergy (Verified 05/09/22 11:20) Home Medications No Known Home Medications 05/09/22 [History Confirmed 05/09/22] Discharge Plan Discharge Patient Disposition: Xfer Short-Term Hosp Condition: Stable Prescriptions: No Action No Known Home Medications Rx Instructions: see pharmacy notes Discharge Orders: Transfer Out of Facility (Order); Ordered 05/20/22 Ordered By: Juan M Muñoz Referrals: Mali Yen MD [Physician] - 2 weeks (Patient will need to follow-up in my office in 2 to 3 weeks. He may see Donell Aleman, nurse practitioner.) Kim Gutiérrez MD [Hospitalist] - 6 Weeks Susie Samson FNP [Nurse Practitioner] - 2 weeks Discharge Diet: Cardiac and Diabetic Patient Instructions: Vancomycin (By mouth), Heart Failure (GEN), Coronary Artery Disease (GEN), Osteomyelitis (GEN), Cigarette Smoking and Your Health (GEN), Hepatitis C (GEN), Methamphetamine Use Disorder (GEN), Hypertension (GEN), Opioid Safety Activity Restrictions/Additional Instructions: From an orthopedic standpoint, addressing the left lower extremity, the patient may be weightbearing as tolerated. Silverlon dressing should remain on for 1 week. [place] can be removed at 2 weeks from surgical procedure. The procedure was on May 12. Keep wounds covered once the Silverlon dressings are removed. Elevation to left lower extremity. Continue vancomycin IV infusions to complete course over the next 6 weeks. Goal trough of 15-20. Follow-up with orthopedics and infectious disease. Remove PICC line once completed. PICC line was placed 05/13. Weightbearing as tolerated to right foot. Every other day and dressing changes. Wound care dressings consisting of Betadine wet-to-dry. Follow-up with podiatry. Follow-up regarding hepatitis C to arrange for treatment. Continue diuretic for congestive heart failure. Continue aspirin, carvedilol. Follow-up with cardiology. Avoid any methamphetamine use due to risk of heart attack, worsening heart failure, abnormal heart rhythm and multiple other risks. Please stop smoking. Transfer Attestations Time Spent in Transfer Care: greater than 30 min Quality Metrics Clinical Quality Measures [ No reported AMI, CVA or VTE this stay] Coding Level of Care Code Acute Code for Chg Fwd Exam Comprehensive Diagnoses Osteomyelitis M86.9 Status post hardware removal Z98.890 Chronic ulcer of right foot due to diabetes mellitus E11.621; L97.519 Infected hardware in left lower extremity T84.7XXA Encounter type: initial encounter Abscess L02.91 Non-healing wound of left lower extremity S81.802A Acute respiratory failure J96.00 Acute diastolic CHF (congestive heart failure) I50.31 Ground glass opacity present on imaging of lung R91.8 Transaminitis R74.01 Alkaline phosphatase elevation R74.8 Bilateral pleural effusion J90 Hepatitis C B19.20 Abnormal nuclear stress test R94.39
[2022-05-20 12:15] LABS: Glucose Point of Care 117 mg/dL (70-110)
--- NOTE | 2022-05-20 12:56 | PC.NURSE ---
Silvalon dressing changed
--- NOTE | 2022-05-20 17:06 | PM.PN ---
Subjective Subjective: The patient was seen in his room prior to discharge. He was doing well. His upper incisions were uncovered and dry. The lower incision continued to have a Silverlon dressing secondary to drainage from this area as would be expected. Medications: Reviewed: Yes Vitals/I&O/Wt Last Vital Signs Temp 97.9 F 05/20/22 15:38 Pulse 85 05/20/22 15:38 Resp 16 05/20/22 15:38 BP 167/73 05/20/22 15:38 Pulse Ox 95 05/20/22 15:38 O2 Del Method 05/20/22 08:35 O2 Flow Rate 2 05/19/22 20:00 FiO2 30 05/11/22 21:12 05/20/22 05/20/22 05/20/22 06:59 14:59 22:59 Intake Total 730 / 1710 1330 / 1330 Output Total 500 / 2500 800 / 800 Balance 230 / -790 530 / 530 Weight last 48 hrs Weight 155 lb 7 oz Weight 157 lb 2 oz Physical Exam Narrative: Patient is seen in his room. He seems comfortable, and has minimal complaints at the moment. Const: COMMON NORMALS: no acute distress, average body habitus, patient oriented x3 and alert GENERAL APPEARANCE: cooperative and comfortable ORIENTATION/CONSCIOUSNESS: Yes awake HENMT: COMMON NORMALS: normocephalic and atraumatic HEAD & SCALP: normocephalic and atraumatic Eye: GENERAL EYE: appearance normal, both eyes and all related structures Chest: COMMONS NORMALS: normal inspection of the chest Resp: COMMON NORMALS: normal respiratory effort EFFORT & INSPECTION: Yes able to speak in complete sentences and Yes symmetric chest movement Extremity: NARRATIVE EXTREMITY EXAM: Right foot has been addressed by Dr. Hernandez. Wounds are benign at the knee. There is some drainage from the lateral distal wound consistent with the patient's surgical procedure. There is no evidence of infection. There is minimal to no swelling. There is no evidence of DVT. Neuro: COMMON NORMALS: patient oriented x3 SENSORIUM/ORIENTATION: Yes alert Psych: COMMON NORMALS: mental status grossly normal APPEARANCE: Yes grossly normal ATTITUDE: Yes calm and Yes engaged ATTENTION/CONCENTRATION: Yes attention grossly intact Skin: COMMON NORMALS: no rashes or lesions noted GENERAL SKIN EXAM: no rashes or lesions noted Data 05/16/22 05:00 05/16/22 05:00 Micro: Microbiology 05/12/22 19:56 Anaerobic Culture - Final Leg - #2 05/12/22 20:06 Gram Stain - Final Leg - #2 Anaerobic Culture - Final Wound Culture - Final Strep pyogenes (grp a) 05/12/22 20:06 Anaerobic Culture - Final Leg - #1 05/15/22 04:05 Blood Culture - Final Blood NO GROWTH AFTER 5 DAYS 05/15/22 04:00 Blood Culture - Final Blood NO GROWTH AFTER 5 DAYS A&P Assessment and plan (1) Infected hardware in left lower extremity: Patient's wounds are benign. Hardware is removed. He will need appropriate IV antibiotic treatments. No follow-up with me is required. The patient may have his norm out while at [facility] to weeks following his surgical procedure. Qualifiers: Encounter type: subsequent encounter Qualified Code(s): T84.7XXD - Infection and inflammatory reaction due to other internal orthopedic prosthetic devices, implants and grafts, subsequent encounter (2) Diabetic peripheral neuropathy associated with type 2 diabetes mellitus: (3) Chronic ulcer of right foot due to diabetes mellitus: (4) Pain of right foot: (5) Hepatitis C: (6) DM type 2 (diabetes mellitus, type 2): Plan -S/p right hallux wound debridement DOS: 05/12/2022 -Labs and vitals reviewed -WBC 14.7 VSS -Diet: Okay for diet from podiatry standpoint. No further surgical intervention by podiatry during this admission -Weight bearing: Weightbearing as tolerated to right foot -Dressings: Betadine wet-to-dry every other day. -Discharge plan: Patient is okay to discharge from a podiatry standpoint. If patient goes to SNF they will need to perform every other day dressing changes. Wound care dressings consisting of Betadine wet-to-dry -Given stability of right foot ulceration, podiatry will sign off. Please reconsult if needed. Attestations Medical Necessity Statement*: Patient is ready for discharge today. Coding Level of Care Code Acute Code for Chg Fwd Exam Detailed Diagnoses Infected hardware in left lower extremity T84.7XXD Encounter type: subsequent encounter Diabetic peripheral neuropathy associated with type 2 diabetes mellitus E11.42 Chronic ulcer of right foot due to diabetes mellitus E11.621; L97.519 Pain of right foot M79.671 Hepatitis C B19.20 DM type 2 (diabetes mellitus, type 2) E11.9
== END 2022-05-20 15:30 | DRG 463 ==
LOC: ER 14:25 → ICU 17:56 → CSU 05-10 16:50 → MEDSURG 05-12 05:21
PROVIDERS: Family Medicine; Podiatrist Foot & Ankle Surgery; Specialist; Student in an Organized Health Care Education/Training Program; Admitting Provider Internal Medicine; Emergency Provider Emergency Medicine; Visit Provider Internal Medicine
PROC: 0QPH04Z Removal of Internal Fixation Device from Left Tibia, Open Approach (ICD-10-PCS; CPT 20680; principal; 2022-05-12 13:10)
PROC: 0JBQ0ZZ Excision of Right Foot Subcutaneous Tissue and Fascia, Open Approach (ICD-10-PCS; 2022-05-12 13:10)
DX: T84.623A Infection and inflammatory reaction due to internal fixation device of left tibia, initial encounter (principal); I50.31 Acute diastolic (congestive) heart failure; M86.8X6 Other osteomyelitis, lower leg; Y79.8 Miscellaneous orthopedic devices associated with adverse incidents, not elsewhere classified; E11.69 Type 2 diabetes mellitus with other specified complication; E11.42 Type 2 diabetes mellitus with diabetic polyneuropathy; E11.621 Type 2 diabetes mellitus with foot ulcer; L97.519 Non-pressure chronic ulcer of other part of right foot with unspecified severity; E11.622 Type 2 diabetes mellitus with other skin ulcer; I11.0 Hypertensive heart disease with heart failure; B19.20 Unspecified viral hepatitis C without hepatic coma; F17.210 Nicotine dependence, cigarettes, uncomplicated; F15.90 Other stimulant use, unspecified, uncomplicated; Z66 Do not resuscitate; D50.9 Iron deficiency anemia, unspecified; B95.62 Methicillin resistant Staphylococcus aureus infection as the cause of diseases classified elsewhere; Z91.199 Patient's noncompliance with other medical treatment and regimen due to unspecified reason; I25.5 Ischemic cardiomyopathy; R94.39 Abnormal result of other cardiovascular function study
CPT/HCPCS: 36415; 36416; 36569; 36592; 36600; 71045; 71275; 73590; 73701; 76000; 78452; 80053; 80202; 80306; 81001; 82550; 82803; 82962; 83880; 84443; 84484; 85025; 85378; 85610; 87040; 87070; 87075; 87077; 87186; 87205; 87426; 87804; 93005; 93308; 94640; 94660; 96372; 96374; 96375; 97110; 97161; 97165; 97530; 99291; A9500; J0131; J0690; J1100; J1170; J1644; J1815; J1940; J2405; J2543; J2704; J2785; J3010; J3370; J3490; J7030; J7050; J7626; Q9967

== ENCOUNTER → 2022-06-25 12:27 | Outpatient (BNVA) | payer MEDICAID, SELFPAY | PROVIDERS: Visit Provider Family Medicine | DX: I50.30 Unspecified diastolic (congestive) heart failure (principal); I10 Essential (primary) hypertension; E11.42 Type 2 diabetes mellitus with diabetic polyneuropathy; B17.10 Acute hepatitis C without hepatic coma; D50.9 Iron deficiency anemia, unspecified; E11.9 Type 2 diabetes mellitus without complications; R06.02 Shortness of breath; Z98.890 Other specified postprocedural states; F15.10 Other stimulant abuse, uncomplicated; Z71.1 Person with feared health complaint in whom no diagnosis is made | CPT/HCPCS: 71046; 80053; 81000; 85025 ==

== ENCOUNTER → 2022-08-19 12:00 | Outpatient (BNVA) | payer MEDICAID, SELFPAY | PROVIDERS: PCP Family Medicine; Visit Provider Internal Medicine Cardiovascular Disease | DX: R06.02 Shortness of breath (principal) | CPT/HCPCS: 36415; 80048; 83880 ==

== ENCOUNTER 2022-08-26 15:04 | Outpatient (CLI) | payer MEDICAID, SELFPAY ==
--- NOTE | 2022-08-26 15:15 | US_ITS ---
WS: [id number] RIGHT UPPER QUADRANT ULTRASOUND HISTORY: Evaluate for cirrhosis, hepatitis C COMPARISON: None available. Liver: 13.8 cm in length. Normal size liver and echogenicity. No bile duct dilatation or mass. Portal Vein: Normal hepatopetal flow with monophasic waveform. Gallbladder: Normally distended gallbladder with no stones or wall thickening. CBD: 0.3 cm Pancreas: Normal size and echogenicity. Right kidney: cm in length. Normal size and echogenicity. No hydronephrosis or mass. Aorta and IVC: Unremarkable abdominal aorta and IVC. No definite ascites identified. US/US liver [id number] IMPRESSION: Normal RIGHT upper quadrant ultrasound.
== END 2022-08-26 15:05 | disposition home or self-care (01) ==
LOC: RAD 15:07
PROVIDERS: PCP Family Medicine; Visit Provider Student in an Organized Health Care Education/Training Program
DX: B17.10 Acute hepatitis C without hepatic coma (principal)
CPT/HCPCS: 76705

== ENCOUNTER 2022-09-30 07:11 | Outpatient (CLI) | payer MEDICAID, SELFPAY ==
[2022-09-30] VITALS (42 sets, daily range): BP systolic 109–191; BP diastolic 43–128; PULSE 93–112; RESP 4–28; TEMP 36.4–36.9; O2SAT 60–100; BMI 25.0
--- NOTE | 2022-09-30 07:30 | XACV_ITS ---
Exam Room: 2 Ht: 171 cm Wt: 73 kg BSA: 1.87 m2 Gender: Male : 1965 Exam Priority: Routine Procedure(s): Procedure Description: Diagnostic procedure Procedure Description: Coronary Angiography Edy EPPERSON; Diagnostic Cath Status: Elective Diagnostic Findings * INDICATION: 57-year-old man with past medical history of diabetes, hypertension, hyperlipidemia was had a stress test for evaluation of congestive heart failure and chest discomfort. He continues having chest pressure. It showed ischemia in left circumflex artery territory. Plan for coronary angiogram with possible percutaneous coronary intervention. Risks and benefits of the procedure were discussed. Patient has a history of non-compliance. * Apical Left Anterior Descending: chronic total occlusion, RAQUEL: 0 flow. However proximal to distal LAD is patent without significant disease. LAD is occluded at the very distal segment. * Mid to distal Circumflex: Severe 80% stenosis, RAQUEL: 3 flow. * Left Main has no significant disease. * Right Coronary Artery has no significant disease. A side branch of PDA has severe stenosis but is a small vessel. * Coronary angiography shows right dominance. PCI Status: Elective Interventional Findings * Procedure detail: We engaged left main artery with XB 3.0 guide catheter. IV heparin was administered to maintain anticoagulation. 0.014 run-through guidewire was used to cross the mid to distal left circumflex artery stenosis and was put in distal vessel. We dilated the stenosis with 2.5 x 15 mm semicompliant balloon. This reduced the stenosis from 80% down to 20%. Given patient's noncompliance, we decided not to stent the vessel as had good result with balloon angioplasty. Patient left the Sow Manager in a stable condition.. * Distal Circumflex: 80% stenosis treated with a AB TREK 2.50X15 RX BALLOON. 0% residual stenosis, RAQUEL: 3 flow. Conclusions 1. Severe mid to distal left circumflex artery stenosis s/p revascularization with balloon angioplasty. We did not stent the vessel because of concern of medication non-compliance and it is a medium sized vessel. 2. Distal Circumflex was treated with a Balloon. Recommendations * Dual antiplatelet therapy with aspirin and plavix. * High intensity statin therapy. * Outpatient cardiology follow up in 2 weeks. Interventional RX Recommendation: PCI w/o planned CABG Diagnostic RX Recommendation: PCI w/o planned CABG Anticoagulation: Heparin Pressures Phase:Rest AO : 130 / 96 ( 113 ) @ 10:01:00 AM 129 / 85 ( 107 ) @ 10:08:00 AM 119 / 88 ( 104 ) @ 10:12:00 AM 123 / 96 ( 110 ) @ 10:17:00 AM 136 / 97 ( 117 ) @ 10:22:00 AM Clinical Evaluation EBL: 5mL-10mL Procedural Details Procedure Consent Obtained. Admit Source: Out Patient. Identified patient by full name and date of as verbalized by the patient/guarantor. Does the consent match the physician's order: Yes. Accurate & Complete Informed Consent: Yes. Inpatient/Outpatient History & Physical on Chart: Yes. If H&P is completed, is and addenduem needed: No; If yes, is the addendum complete: N/A. Visualize and Verify Site with Patient/Guarantor: N/A. Relevant Radiology Images available: N/A. The risks, benefits, and alternatives of sedation and/or procedure were discussed by physician. The patient agrees to continue. Procedure started. [facility] Clinical Fraility Score: 4: Vulnerable. Sow Manager Indications: CHF and abnormal stress test. Chest Pain Symptom Assessment: Atypical Angina. Correct patient, site and procedure confirmed by cath team. PERRLA. Strong, equal hand chemical production technician bilaterally. Lungs clear x 5 lobes. IV Site on Arrival: 20 gauge in the right anticubital. IV Fluids: 0.9% NaCl at KVO. 0 mL infused prior to photo lab manager. Pre Procedural Pulses: bilateral radial was 2+. Pre Procedural Pulses: bilateral dorsalis pedis was Doppled. Pre Procedural Pulses: bilateral posterior tibial was Doppled. Oxygen started at 2liters/min via nasal canula. right radial was prepped with chloroprep then draped in the usual sterile fashion. right groin was prepped with chloroprep then draped in the usual sterile fashion. Physician notified. Baseline sample Acquired. HR: 106 BPM. Physician arrived. Physician scrubbed in. Immediate Pre-Procedure Time Out. Correct Patient: Yes; Correct Procedure: Yes; Correct Site: Yes; Correct Patient Position: Yes; Correct Supplies: Yes; Dried Flammable Prep: Yes; Blood Products Available: N/A;. Lidocaine 1% infiltrated to the right radial. Arterial access obtained. A 5 kinyarwanda TIG catheter in over wire. Catheter inserted over the exchange wire. Multiple views taken of left coronary artery. Catheter redirected to the RCA. Multiple views taken of right coronary artery. Catheter out. 6 kinyarwanda XB 3 guide catheter was inserted over the wire. Runthrough guidewire was advanced through the guide catheter to lesion in the distal Circ. Balloon inserted to lesion in the distal Circ. Inflation number : 1 A AB TREK 2.50X15 RX BALLOON was prepped and advanced across the Dist CX , then inflated to 8 SMITH for 0:10 seconds. Inflation number: 2 The AB TREK 2.50X15 RX BALLOON was reinflated across the Dist CX, to 7 SMITH for 0:07 seconds. Inflation number: 3 The AB TREK 2.50X15 RX BALLOON was reinflated across the Dist CX, to 8 SMITH for 0:10 seconds. Inflation number: 4 The AB TREK 2.50X15 RX BALLOON was reinflated across the Dist CX, to 8 SMITH for 0:23 seconds. Inflation number: 5 The AB TREK 2.50X15 RX BALLOON was reinflated across the Dist CX, to 12 SMITH for 0:25 seconds. Inflation number: 6 The AB TREK 2.50X15 RX BALLOON was reinflated across the Dist CX, to 8 SMITH for 0:18 seconds. Inflation number: 7 The AB TREK 2.50X15 RX BALLOON was reinflated across the Dist CX, to 8 SMITH for 0:13 seconds. Balloon out. Results checked. Wire out. Guide catheter out. ACT drawn. Results 252 seconds. Therapeutic limits - pre-heparin administration 90-150 seconds and monitoring heparin during a vascular procedure >250 seconds. Post Procedure: Pulses reassessed and unchanged. PERRLA. Strong, equal hand chemical production technician bilaterally. No VTE prophylaxis required. A TR Band was successful obtaining hemostatsis at the Right Radial artery insertion site. Medication's Wasted: Lidocaine 1% = 1 mL. Medication's Wasted: Nitro = 49.6 mg. Medication's Wasted: Heparin = 4000 units. Medication's Wasted: Other = versed 1 mg. Medication's Wasted: Other = fentanyl 50 mcg. Total IV fluids: 50 mL. Post-op diagnosis: severe CAD of left dital circ, post balloon angioplasty. Complications: none. Estimated blood loss: 5mL-10mL. Responsiveness - Normal response to verbal stimuli; alert and oriented, PERRLA. Airway - Unaffected, no intervention required; spontaneous ventilation. Circulation: W/N/L, pulses unchanged. Nausea/Vomiting: No. Procedure completed. Patient transferred by wheelchair to CPRU. Vital chart was stopped. Access Site Site: Right Radial artery Sheath Size: 6 Fr Hemostasis Method: TR Band Hemostasis Success: Successful Procedure Medications Start: 8:51 AM Stop: 8:51 AM Medication: Versed Amount: 1 mg Route: I.V. Start: 8:51 AM Stop: 8:51 AM Medication: Fentanyl Amount: 50 mcg Route: I.V. Start: 8:58 AM Stop: 8:58 AM Medication: Nitrogylcerin Amount: 200 mcg Route: I.A. Start: 9:01 AM Stop: 9:01 AM Medication: Heparin Amount: 5000 units Route: I.V. Start: 9:11 AM Stop: 9:11 AM Medication: Heparin Amount: 2000 units Route: I.V. Start: 9:20 AM Stop: 9:20 AM Medication: Nitrogylcerin Amount: 200 mcg Route: I.C. I, the attending physician, have reviewed and verified all procedure medications. Yes, all medications given per verbal order History/Risk Factors Hypertension: Yes Dyslipidemia: No Peripheral Arterial Disease (PAD): No Myocardial Infarction (AR): No Obesity: No Tobacco Use: Former Prior Interventions PCI: No CABG: No Valve Surgery: No Report Signatures Finalized by Jim Fenton MD on 10/03/2022 03:55 PM
[2022-09-30 07:48] LABS: Basophils % 0.2 %; Eosinophils # 0.1 10^3/uL (0.0-0.8); Eosinophils % 0.8 %; Hematocrit 45.1 % (42.0-52.0); Hemoglobin 15.1 g/dL (11.7-16.6); Lymphocytes # 1.7 10^3/uL (0.8-4.8); Lymphocytes % 11.8 %; Mean Corpuscular HGB Conc 33.5 g/dL (30.0-36.0); Mean Corpuscular Hemoglobin 31.1 pg (28.0-34.0); Mean Corpuscular Volume 92.8 fl (80-94); Mean Platelet Volume 11.9 fL (7.4-10.4); Monocytes # 0.6 10^3/uL (0.2-0.9); Monocytes % 4.3 %; Neutrophils # 11.58 10^3/uL (1.8-7.7); Neutrophils % 82.5 %; Nucleated Red Blood Cells % 0 %; Platelet Count 192 10^3/cmm (130-400); Red Blood Count 4.86 10^6/uL (4.1-5.3); Red Cell Distribution Width 13.4 % (12.1-15.1); White Blood Count 14.1 10^3/uL (4.0-10.0)
[2022-09-30 07:53] LABS: Glucose Point of Care 236 mg/dL (70-110)
[2022-09-30] MEDS: diphenhydrAMINE 50 mg Capsule PO (07:56)
[2022-09-30 08:09] LABS: Anion Gap 13.5 (5-19); Blood Urea Nitrogen 9 mg/dL (6-20); Calcium 8.8 mg/dL (8.5-10.5); Carbon Dioxide 25 mmol/L (22-29); Chloride 104 mmol/L (98-107); Glomerular Filtration Rate 166.9 mL/min (90-130); Glucose 242 mg/dL (65-115); Osmolality Calculated 295 mOsm/kg (285-295); Potassium 3.5 mmol/L (3.5-5.1); Sodium 139 mmol/L (136-145)
--- NOTE | 2022-09-30 08:52 | W.PM.OPSFHP ---
Same Day Surgery H&P Indication for Procedure/HPI DATE OF PROCEDURE: September 30, 2022 CHIEF COMPLAINT/INDICATIONFOR SURGICAL PROCEDURE: Congestive heart failure/ Chest pain/ abnormal stress test PREOP DIAGNOSIS: Congestive heart failure/ Chest pain/ abnormal stress test PLANNED PROCEDURE: Operation Date: 09/30/22 08:30 Proposed Procedures p [facility] w/-W/o 71260 I50.30,R94.39,I10(Left) - Jmi Fenton M.D Possible percutaneous coronary intervention 57-year-old man with past medical history of diabetes, hypertension, hyperlipidemia was had a stress test for evaluation of congestive heart failure and chest discomfort. He continues having chest pressure. It showed ischemia in left circumflex artery territory. Plan for coronary angiogram with possible percutaneous coronary intervention. Risks and benefits of the procedure were discussed. Medications/Allergies* Home Medications Medication Instructions Recorded Confirmed Type sofosbuvir 400 mg-velpatasvir 100 1 tab PO DAILY 08/19/22 09/30/22 History mg tablet (Epclusa) Allergies/Adverse Reactions Allergy/AdvReac Type Severity Reaction Status Date / Time No Known Allergies Allergy Verified 09/30/22 07:52 Current Medications: Generic Name Dose Route Start Last Admin Trade Name Freq PRN Reason Stop Dose Admin Sodium Chloride 1,000 mls @ 50 mls/hr 09/30/22 07:30 09/30/22 07:56 Sodium Chloride 0.9% IV 10/01/22 03:29 Not Given .Q20H ONE Pertinent History/Comorbid Conditions* Medical History 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 Diabetes Diabetic peripheral neuropathy associated with type 2 diabetes mellitus Hepatitis C HTN (hypertension) Methamphetamine use Non-healing wound of left lower extremity Open tibial fracture Orthopedic hardware present Smoking Surgical History (Updated 05/14/22 @ 11:10 by Kash Ruff MD) History of surgery on lower extremity Family History (Updated 06/25/22 @ 11:26 by Mercedez Rodas LPN) Diabetes Crohn's disease Hyperlipidemia Hypertension Denies family history of CAD (coronary artery disease) Clotting disorder Dementia Psychiatric illness Chronic kidney disease (CKD) Anesthesia complication Bleeding disorder Lung disease Cancer Stroke Social History Smoking and tobacco status: smoker, details unknown cigarettes [ Other cigarette details: quit 2018. 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 Current gender identity: Male Special costa needs: No Agree to transfusion: Yes Pertinent Exam Findings alert, oriented x 3, clear to auscultation bilaterally and regular rate & rhythm Conscious Sedation Assessment PATIENT ASSESSED PRIOR TO SEDATION, WITH NO CHANGE NOTED: Yes AIRWAY EVAL/ANESTHESIA PLAN: normal airway, ASA III, Local Anesthesia, Risks, benefits & alternatives of sedation and/or procedure discussed and Patient agrees to continue as planned Recommendations Surgery/Procedure today (Left heart cath with possible percutaneous coronary intervention) Coding Level of Care Code Acute Code for Chg Fwd Diagnoses
--- NOTE | 2022-09-30 09:35 | SUR.PHASEI ---
POST CATH NOTE Received patient from sanitation laborer. Status post cardiac catheterization via the right radial approach. TR band in place (Site is hemostatic). Patient reports no pain at this time. Call light within reach. Informed to call for needs. Vitals and Assessments per Flowsheet.
--- NOTE | 2022-09-30 10:06 | SUR.PHASEI ---
POST OP FLUIDS IV NS at 75 ml/hr post cath per verbal order at this time.
[2022-09-30] MEDS: hyDRALAzine 20 mg/mL INJ 1 mL 10 MG IVP (10:16)
[2022-09-30] MEDS: amlodipine 10 mg Tablet PO (10:17)
--- NOTE | 2022-09-30 11:54 | PC.NURSE ---
received from cardiac laborer cement gun placing at 1135 via w/c.report received.pt is lethargic and has been since admission according to report.bp high,as has been since admission,according to report.pt is arousable..lethargic.right wrist with tr band on and intact.palpable radial pulse noted distal to tr band.no hematoma noted.instructed in activity restrictions s/p radial artery procedure..and instructed to leave tr band on..and notify staff for bleeding,sob,pain,or for any concerns at all.pt verb understanding of instructions at present.will reiterate as needed.
[2022-09-30] MEDS: sodium chloride 0.9% 1,000 ML 100 ML IV (12:35)
--- NOTE | 2022-09-30 16:26 | PC.NURSE ---
tr band on right wrist slowly deflated and eventually removed at 1500.no hematoma noted.right hand remained warm to touch and with brisk capillary refill.palpable radial pulse noted.site dressed with 2 x 2 gauze and secured with biocclusive drsg.pt instructed in activity restrictions s/p tr band removal...and instructed to notify staff for any bleeding,pain,dizziness,sob,..or for any concerns at all.pt verb understanding of instructions
[2022-09-30 16:55] LABS: Glucose Point of Care 216 mg/dL (70-110)
[2022-09-30] MEDS: insulin lispro 100 unit/1 mL SUBCUT ×2 (17:57→21:58)
[2022-09-30] MEDS: FUROsemide 20 mg Tablet PO (17:57)
[2022-09-30] MEDS: carvedilol 6.25 mg Tablet PO (20:10)
[2022-09-30 21:27] LABS: Glucose Point of Care 162 mg/dL (70-110)
[2022-09-30] MEDS: insulin glargine 100 units/1 mL 20 UNIT SUBCUT (21:59)
[2022-09-30] MEDS: temazepam 15 mg Capsule PO (22:14)
[2022-10-01 00:31] VITALS: BP 135/89; PULSE 88; RESP 18; TEMP 36.3; O2SAT 93
[2022-10-01 03:32] LABS: Basophils % 0.3 %; Eosinophils # 0.2 10^3/uL (0.0-0.8); Eosinophils % 1.1 %; Hematocrit 47.8 % (42.0-52.0); Hemoglobin 16.1 g/dL (11.7-16.6); Lymphocytes # 2.1 10^3/uL (0.8-4.8); Lymphocytes % 15.7 %; Mean Corpuscular HGB Conc 33.7 g/dL (30.0-36.0); Mean Corpuscular Hemoglobin 31.6 pg (28.0-34.0); Mean Corpuscular Volume 93.7 fl (80-94); Mean Platelet Volume 11.1 fL (7.4-10.4); Monocytes # 0.9 10^3/uL (0.2-0.9); Monocytes % 6.4 %; Neutrophils # 10.05 10^3/uL (1.8-7.7); Neutrophils % 76.2 %; Nucleated Red Blood Cells % 0 %; Platelet Count 231 10^3/cmm (130-400); Red Cell Distribution Width 13.5 % (12.1-15.1); White Blood Count 13.2 10^3/uL (4.0-10.0)
[2022-10-01 03:47] VITALS: BP 133/87; PULSE 101; RESP 13; TEMP 37.1; O2SAT 94
[2022-10-01 03:57] LABS: Anion Gap 14.3 (5-19); Blood Urea Nitrogen 11 mg/dL (6-20); Calcium 8.8 mg/dL (8.5-10.5); Carbon Dioxide 23 mmol/L (22-29); Chloride 109 mmol/L (98-107); Glomerular Filtration Rate 205.9 mL/min (90-130); Glucose 99 mg/dL (65-115); Osmolality Calculated 295 mOsm/kg (285-295); Potassium 3.3 mmol/L (3.5-5.1); Sodium 143 mmol/L (136-145)
[2022-10-01 04:54] VITALS: PULSE 96
[2022-10-01 06:31] LABS: Glucose Point of Care 147 mg/dL (70-110)
--- NOTE | 2022-10-01 07:29 | PM.DCS ---
Discharge Providers Date of Admission: September 30, 2022 Date of Discharge: October 01, 2022 Attending Provider at Admission: Jim Fenton MD Attending Provider at Discharge: Jim Fenton M.D Primary Care Provider: Dallas Kwan MD Reason for Visit Reason for Visit: I50.30 Brief History: 57-year-old man with past medical history of diabetes, hypertension, hyperlipidemia was had a stress test for evaluation of congestive heart failure and chest discomfort.? He continues having chest pressure.? It showed ischemia in left circumflex artery territory.? Plan for coronary angiogram with possible percutaneous coronary intervention.? Risks and benefits of the procedure were discussed. Hospital Course Hospital Course Patient underwent coronary angiogram that showed severe mid to distal left circumflex artery stenosis. He underwent successful revascularization with balloon angioplasty. We did not place a stent placed as there was concern for medication noncompliance. Patient was observed overnight and was stable for discharge with dual antiplatelet therapy. Physical Exam Narrative: GENERAL: Patient is alert, awake and oriented x3. [] NECK: No jugular vein distension. [] HEENT: No cyanosis. No icterus. No pallor. [] HEART: Regular S1 and S2. No murmur, rub or gallop. [] LUNGS: Clear to auscultate bilaterally. [] CENTRAL NERVOUS SYSTEM: Grossly nonfocal. [] EXTREMITIES: Lower extremities with no edema Discharge Data Studies Completed and Pending Pending at discharge Category Date Time Status GERIATRIC PHYSICIAN request for service Routine Exams 09/30/22 07:30 Taken Laboratory Results WBC 13.2 10^3/uL (4.0-10.0) H 10/01/22 03:02 RBC 5.10 10^6/uL (4.1-5.3) 10/01/22 03:02 Hgb 16.1 g/dL (11.7-16.6) 10/01/22 03:02 Hct 47.8 % (42.0-52.0) 10/01/22 03:02 MCV 93.7 fl (80-94) 10/01/22 03:02 MCH 31.6 pg (28.0-34.0) 10/01/22 03:02 MCHC 33.7 g/dL (30.0-36.0) 10/01/22 03:02 RDW 13.5 % (12.1-15.1) 10/01/22 03:02 Plt Count 231 10^3/cmm (130-400) 10/01/22 03:02 MPV 11.1 fL (7.4-10.4) H 10/01/22 03:02 Neut % (Auto) 76.2 % 10/01/22 03:02 Lymph % (Auto) 15.7 % 10/01/22 03:02 [place] % (Auto) 6.4 % 10/01/22 03:02 Eos % (Auto) 1.1 % 10/01/22 03:02 Baso % (Auto) 0.3 % 10/01/22 03:02 Neut # (Auto) 10.05 10^3/uL (1.8-7.7) H 10/01/22 03:02 Lymph # (Auto) 2.1 10^3/uL (0.8-4.8) 10/01/22 03:02 [place] # (Auto) 0.9 10^3/uL (0.2-0.9) 10/01/22 03:02 Eos # (Auto) 0.2 10^3/uL (0.0-0.8) 10/01/22 03:02 Baso # (Auto) 0.0 10^3/uL (0.0-0.1) 10/01/22 03:02 Nucleated RBC % (auto) 0 % 10/01/22 03:02 Nucleated RBCs # 0.0 /100WBC 10/01/22 03:02 Sodium 143 mmol/L (136-145) 10/01/22 03:02 Potassium 3.3 mmol/L (3.5-5.1) L 10/01/22 03:02 Chloride 109 mmol/L (98-107) H 10/01/22 03:02 Carbon Dioxide 23 mmol/L (22-29) 10/01/22 03:02 Anion Gap 14.3 (5-19) 10/01/22 03:02 BUN 11 mg/dL (6-20) 10/01/22 03:02 Creatinine 0.5 mg/dL (0.7-1.2) L 10/01/22 03:02 GFR Calculation 205.9 mL/min (90-130) H 10/01/22 03:02 Glucose 99 mg/dL (65-115) 10/01/22 03:02 POC Glucose 147 mg/dL (70-110) H 10/01/22 06:20 Calculated Osmolality 295 mOsm/kg (285-295) 10/01/22 03:02 Calcium 8.8 mg/dL (8.5-10.5) 10/01/22 03:02 Vitals Last Vital Signs Temp 98.7 F 10/01/22 03:47 Pulse 96 10/01/22 04:54 Resp 13 10/01/22 03:47 BP 133/87 10/01/22 03:47 Pulse Ox 94 10/01/22 03:47 O2 Del Method Room Air 10/01/22 03:47 Discharge Plan Discharge Patient Disposition: Home Prescriptions: New clopidogrel 75 mg Tablet 75 mg PO DAILY Qty: 90 3RF Continued carvedilol 6.25 mg tablet 6.25 mg PO BID Qty: 180 1RF Rx Instructions: must administer with a meal/food atorvastatin [Lipitor] 40 mg tablet 40 mg PO DAILY Qty: 90 1RF aspirin 81 mg tablet,delayed release (DR/EC) 81 mg PO DAILY Qty: 90 1RF furosemide 20 mg tablet 20 mg PO BID Qty: 120 0RF insulin aspart U-100 [Novolog FlexPen U-100 Insulin] 100 unit/mL (3 mL) insulin pen 4 unit SUBCUT TID 60 Days Qty: 15 4RF Rx Instructions: measure glucose prior to meals, follow sliding scale insulin glargine [Lantus Solostar U-100 Insulin] 100 unit/mL (3 mL) insulin pen 20 unit SUBCUT BID 60 Days Qty: 24 3RF Rx Instructions: last admin was 1/2 dosing (DME) OneTouch Ultra Test Strip See Rx Instructions .ROUTE .MEDSUPPLY Qty: 100 6RF Rx Instructions: Measure 4 times per day (DME) lancets [OneTouch UltraSoft Lancets] Misc See Rx Instructions .ROUTE .MEDSUPPLY Qty: 100 5RF Rx Instructions: measure glucose 4 times per day (DME) blood-glucose meter [OneTouch Ultra2 Meter] Kit See Rx Instructions .Route Qty: 1 0RF Rx Instructions: use glucometer 4 times daily ferrous sulfate [Feosol] 325 mg (65 mg iron) tablet 325 mg PO .q48 90 Days Qty: 45 1RF sofosbuvir-velpatasvir [Epclusa] 400-100 mg tablet 1 tab PO DAILY (DME) pen needle, diabetic [BD Ultra-Fine Mini Pen Needle] 31 gauge x 3/16 needle See Rx Instructions .Route Qty: 100 7RF Rx Instructions: 4 times daily with insulin losartan 100 mg tablet 100 mg PO DAILY 30 Days Qty: 30 5RF Discharge Orders: Discharge Order (Routine); Ordered 10/01/22 Ordered By: Jim Fenton Referrals: Jim Fenton M.D [Physician] - (Your Dr. Fenton follow up appointment will be scheduled while you ae at your Susie Samson appointment. Thank you.) Susie Samson FNP [Nurse Practitioner] - 10/12/22 10:15 am Diet: Cardiac and Diabetic Activity: Increase activity as tolerated Patient Instructions: Clopidogrel (By mouth) (Plavix), Coronary Angioplasty (DC), Post Angiogram Home Care Instructions Discharge Date/Time: 10/01/22 09:40 Discharge Attestations Time Spent in Discharge Care*: less than 30 min Quality Metrics Clinical Quality Measures [ No reported AMI, CVA or VTE this stay] Coding Level of Care Code Acute Code for Chg Fwd Diagnoses
[2022-10-01 07:48] VITALS: BP 147/89; PULSE 101; RESP 14; O2SAT 94
[2022-10-01] MEDS: ferrous sulfate EC 325 mg Tablet PO (08:00)
[2022-10-01] MEDS: clopidogrel 75 mg Tablet PO (08:00)
[2022-10-01] MEDS: aspirin 81 mg EC Tablet PO (08:00)
[2022-10-01] MEDS: atorvastatin 40 mg Tablet PO (08:00)
[2022-10-01] MEDS: carvedilol 6.25 mg Tablet PO (08:00)
[2022-10-01] MEDS: FUROsemide 20 mg Tablet PO (08:00)
[2022-10-01] MEDS: insulin glargine 100 units/1 mL 20 UNIT SUBCUT (08:00)
[2022-10-01] MEDS: insulin lispro 100 unit/1 mL SUBCUT (08:01)
[2022-10-01 08:17] VITALS: PULSE 100; RESP 16; O2SAT 95
--- NOTE | 2022-10-01 09:38 | PC.NURSE ---
Discharge Note Patient discharged to home via accompanied by self. Discharge instructions reviewed with patient and/or asset protection representative. Mobile pharmacy medications and/or prescriptions provided. Belongings/home medications returned.
== END 2022-10-01 09:40 | disposition home or self-care (01) ==
LOC: CCL 07:11 → CSU 11:53
PROVIDERS: PCP Family Medicine; Visit Provider Internal Medicine
DX: R07.9 Chest pain, unspecified (principal); R94.39 Abnormal result of other cardiovascular function study; I25.10 Atherosclerotic heart disease of native coronary artery without angina pectoris; I50.9 Heart failure, unspecified; E11.42 Type 2 diabetes mellitus with diabetic polyneuropathy; I11.0 Hypertensive heart disease with heart failure; E78.5 Hyperlipidemia, unspecified; F17.290 Nicotine dependence, other tobacco product, uncomplicated; Z79.4 Long term (current) use of insulin; Z79.82 Long term (current) use of aspirin
CPT/HCPCS: 36415; 36416; 80048; 82962; 85025; 85347; 92920; 93454; 96361; 96365; 96372; 99152; 99153; C1725; C1769; C1887; C1894; J0360; J1644; J1815; J2250; J3010; J3490; J7030; Q0163; Q9967

== ENCOUNTER → 2022-10-12 11:51 | Outpatient (BNVA) | payer MEDICAID, SELFPAY | PROVIDERS: PCP Family Medicine; Visit Provider Nurse Practitioner Family | DX: I25.10 Atherosclerotic heart disease of native coronary artery without angina pectoris (principal); I50.30 Unspecified diastolic (congestive) heart failure; I10 Essential (primary) hypertension | CPT/HCPCS: 36415; 80048; 83880 ==

== ENCOUNTER 2022-10-21 16:38 | Observation (INO) | payer MEDICAID, SELFPAY ==
[2022-10-21] VITALS (9 sets, daily range): BP systolic 145–182; BP diastolic 95–131; PULSE 103–118; RESP 17–33; TEMP 36.8; O2SAT 87–97; BMI 24.6
--- NOTE | 2022-10-21 16:44 | ECG_ITS ---
[facility] Test Date: 2022-10-21 Pat Name: Leroy Olivo Department: Room: Gender: Male Technical Aid: : 1965 Requested By: Dede Bhatti Order Number: [id number] Joseph MD: Jim Fenton M.D. Measurements Intervals [place] Rate: 102 P: 71 NM: 153 QRS: 82 QRSD: 88 T: 68 QT: 382 QTc: 500 Interpretive Statements SINUS TACHYCARDIA POSSIBLE LEFT ATRIAL ENLARGEMENT [-0.1mV P-WAVE IN V1/V2] Compared to ECG 05/09/2022 18:07:51 Short NM interval no longer present T-wave abnormality no longer present Electronically Signed On 10-21-2022 18:19:17 CDT by Jim Fenton M.D. [id number]
--- NOTE | 2022-10-21 17:44 | XRR_ITS ---
PROCEDURE INFORMATION: Exam: XR Chest Exam date and time: 10/21/2022 4:49 PM Age: 57 years old Clinical indication: Pain; Chest pressure; Additional info: Cp TECHNIQUE: Imaging protocol: Radiologic exam of the chest. Views: 1 view. COMPARISON: CR XR chest 2V* [id number] 06/25/2022 12:33 PM FINDINGS: Lungs: Mildly accentuated indistinct bronchovascular markings lower lung zones with peribronchial cuffing suggestive of mild pulmonary congestion. Pleural spaces: Blunting of the costophrenic angles that may be secondary to minimal bilateral pleural effusions, possibly cardiogenic in nature. Heart/Mediastinum: Heart appears at least mildly enlarged and may have increased in size from previous exam. There is pulmonary vascular distribution indicating elevated central venous pressure. Bones/joints: Unremarkable for age. XR/XR chest 1V portable [id number] IMPRESSION: Cardiomegaly with findings suggestive of mild CHF.
[2022-10-21 18:35] LABS: Basophils % 0.2 %; Eosinophils # 0.1 10^3/uL (0.0-0.8); Eosinophils % 0.8 %; Hematocrit 40.1 % (42.0-52.0); Hemoglobin 13.4 g/dL (11.7-16.6); Lymphocytes % 22.6 %; Mean Corpuscular HGB Conc 33.4 g/dL (30.0-36.0); Mean Corpuscular Hemoglobin 31.4 pg (28.0-34.0); Mean Corpuscular Volume 93.9 fl (80-94); Mean Platelet Volume 11.8 fL (7.4-10.4); Monocytes # 0.6 10^3/uL (0.2-0.9); Monocytes % 6.6 %; Neutrophils # 6.04 10^3/uL (1.8-7.7); Neutrophils % 69.6 %; Nucleated Red Blood Cells % 0 %; Platelet Count 204 10^3/cmm (130-400); Red Blood Count 4.27 10^6/uL (4.1-5.3); White Blood Count 8.7 10^3/uL (4.0-10.0)
[2022-10-21 18:38] LABS: INR 1.06 (0.8-1.2)
[2022-10-21 18:49] LABS: Troponin(5th) Baseline 20 ng/L (0-15)
[2022-10-21 18:54] LABS: Alanine Aminotransferase 47 U/L (0-41); Albumin Level 3.6 g/dL (3.5-5.2); Alkaline Phosphatase 133 U/L (40-130); Anion Gap 14.7 (5-19); Aspartate Amino Transferase 45 U/L (0-40); Blood Urea Nitrogen 14 mg/dL (6-20); Calcium 8.7 mg/dL (8.5-10.5); Carbon Dioxide 25 mmol/L (22-29); Chloride 105 mmol/L (98-107); Glomerular Filtration Rate 119.7 mL/min (90-130); Glucose 184 mg/dL (65-115); Osmolality Calculated 295 mOsm/kg (285-295); Potassium 4.7 mmol/L (3.5-5.1); Sodium 140 mmol/L (136-145); Total Bilirubin 0.6 mg/dL (0.15-1.2); Total Protein 7.6 g/dL (6.6-8.7)
--- NOTE | 2022-10-21 19:20 | W.ED.CHESTPA ---
HPI - Chest Pain General: Chief Complaint: Chest Pain Stated Complaint: sob, chest pain Time Seen by Provider: 10/21/22 19:13 History of Present Illness: Patient presents to the ER with complaints of shortness of breath and chest pain. Patient says this been going on for the last week. Patient does have a history of CHF and COPD. Patient states he does not wear oxygen at home. Patient does state he has a cardiac stent approximately 1 month ago here by Dr. Johnson patient does state he takes Lasix. 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 Diabetes Diabetic peripheral neuropathy associated with type 2 diabetes mellitus Hepatitis C HTN (hypertension) Methamphetamine use Non-healing wound of left lower extremity Open tibial fracture Orthopedic hardware present Smoking Surgical History History of surgery on lower extremity Family History Other Crohn's disease Diabetes Hyperlipidemia Hypertension Denies family history of CAD (coronary artery disease) Clotting disorder Dementia Psychiatric illness Chronic kidney disease (CKD) Anesthesia complication Bleeding disorder Lung disease Cancer Stroke Social History Smoking and tobacco status: smoker, details unknown cigarettes [ Other cigarette details: quit 2018. 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 Current gender identity: Male Special costa needs: No Agree to transfusion: Yes Physical Exam Const: COMMON NORMALS: no acute distress, average body habitus, patient oriented x3, no limitations, healthy appearing, alert and well nourished HENMT: COMMON NORMALS: normocephalic, atraumatic, hearing grossly normal bilaterally, external ears normal, Normal external nose present and moist oral mucous membranes HEAD & SCALP: normocephalic and atraumatic NOSE: Normal external nose present EXTERNAL EAR: Yes external ears normal Eye: COMMON NORMALS: Equal, round and reactive pupils present, EOMs intact bilaterally, conjunctivae normal and no scleral icterus CONJUNCTIVA: Yes conjunctivae normal PUPIL: Yes Equal, round and reactive pupils present Neck/C-Spine: COMMON NORMALS: full ROM, no lymphadenopathy, supple, no meningeal signs and no JVD Chest: COMMONS NORMALS: normal inspection of the chest OTHER: Chest tender to palpation diffusely Resp: EFFORT & INSPECTION: Yes able to speak in complete sentences and Yes symmetric chest movement AUSCULTATION: diminished lung sounds Cardio: COMMON NORMALS: no JVD, regular rate, regular rhythm, S1 normal heart sound present, S2 normal heart sound present, No gallops present (Cardio), No clicks present (Cardio) and No murmurs present (Cardio) RATE: regular rate RHYTHM: regular rhythm HEART SOUNDS: S1 normal heart sound present and S2 normal heart sound present GI: COMMON NORMALS: Normal to inspection, nondistended, normoactive bowel sounds present, Soft to palpation, non-tender, No hepatosplenomegaly present and no masses PALPATION: Yes Soft to palpation and Yes No hepatosplenomegaly present : COMMON NORMALS: Yes no CVA tenderness BLADDER/KIDNEY EXAM: Yes no CVA tenderness Back/Pelvis: COMMON NORMALS: no CVA tenderness Neuro: COMMON NORMALS: patient oriented x3 SENSORIUM/ORIENTATION: Yes alert MENINGEAL SIGNS: Yes no meningeal signs Course Vital Signs: Vital signs: Vital Signs Temperature 98.2 F 10/21/22 16:45 Pulse Rate 117 H 10/21/22 22:00 Respiratory Rate 17 10/21/22 22:00 Blood Pressure 156/97 10/21/22 22:00 Pulse Oximetry 97 10/21/22 22:00 Oxygen Delivery Me thod Nasal Cannula 10/21/22 21:24 Oxygen Flow Rate 2 10/21/22 20:50 MDM - Chest Pain Medical Decision Making Patient presents to the ER with complaints of chest pain shortness of breath. Patient is a cardiac patient just recently had a stent placed approximately [address] Alex zamora. Work-up was obtained on the patient which showed benign troponins but patient have an elevated BNP of approximately 6200. Chest x-ray showed cardiomegaly with findings suggestive of mild CHF. Patient was given 40 mg of IV Lasix and did diurese quite well. Patient had to be maintained on 2 L of oxygen per nasal cannula to keep his sat up in the low 90s. Dr. Madrigal was consulted and agreed to accept the patient for evaluation and treatment. Patient will be admitted Differential Diagnosis Unlikely acute massive pulmonary embolism, acute myocardial infarction, cardiac arrest or sudden cardiac Medical Records I reviewed the patient's medical records. Lab Data I reviewed the patient's lab results. 10/21/22 18:00 10/21/22 18:00 Radiology Impressions Chest X-Ray 10/21/22 17:44 IMPRESSION: Cardiomegaly with findings suggestive of mild CHF. Laboratory Results WBC 8.7 10^3/uL (4.0-10.0) 10/21/22 18:00 RBC 4.27 10^6/uL (4.1-5.3) 10/21/22 18:00 Hgb 13.4 g/dL (11.7-16.6) 10/21/22 18:00 Hct 40.1 % (42.0-52.0) L 10/21/22 18:00 MCV 93.9 fl (80-94) 10/21/22 18:00 MCH 31.4 pg (28.0-34.0) 10/21/22 18:00 MCHC 33.4 g/dL (30.0-36.0) 10/21/22 18:00 RDW 13.0 % (12.1-15.1) 10/21/22 18:00 Plt Count 204 10^3/cmm (130-400) 10/21/22 18:00 MPV 11.8 fL (7.4-10.4) H 10/21/22 18:00 Neut % (Auto) 69.6 % 10/21/22 18:00 Lymph % (Auto) 22.6 % 10/21/22 18:00 [place] % (Auto) 6.6 % 10/21/22 18:00 Eos % (Auto) 0.8 % 10/21/22 18:00 Baso % (Auto) 0.2 % 10/21/22 18:00 Neut # (Auto) 6.04 10^3/uL (1.8-7.7) 10/21/22 18:00 Lymph # (Auto) 2.0 10^3/uL (0.8-4.8) 10/21/22 18:00 [place] # (Auto) 0.6 10^3/uL (0.2-0.9) 10/21/22 18:00 Eos # (Auto) 0.1 10^3/uL (0.0-0.8) 10/21/22 18:00 Baso # (Auto) 0.0 10^3/uL (0.0-0.1) 10/21/22 18:00 Nucleated RBC % (auto) 0 % 10/21/22 18:00 Nucleated RBCs # 0.0 /100WBC 10/21/22 18:00 PT 14.10 SECONDS (12.1-14.9) 10/21/22 18:00 INR 1.06 (0.8-1.2) 10/21/22 18:00 Sodium 140 mmol/L (136-145) 10/21/22 18:00 Potassium 4.7 mmol/L (3.5-5.1) 10/21/22 18:00 Chloride 105 mmol/L (98-107) 10/21/22 18:00 Carbon Dioxide 25 mmol/L (22-29) 10/21/22 18:00 Anion Gap 14.7 (5-19) 10/21/22 18:00 BUN 14 mg/dL (6-20) 10/21/22 18:00 Creatinine 0.8 mg/dL (0.7-1.2) 10/21/22 18:00 GFR Calculation 119.7 mL/min (90-130) 10/21/22 18:00 Glucose 184 mg/dL (65-115) H 10/21/22 18:00 Calculated Osmolality 295 mOsm/kg (285-295) 10/21/22 18:00 Calcium 8.7 mg/dL (8.5-10.5) 10/21/22 18:00 Total Bilirubin 0.6 mg/dL (0.15-1.2) 10/21/22 18:00 AST 45 U/L (0-40) H 10/21/22 18:00 ALT 47 U/L (0-41) H 10/21/22 18:00 Alkaline Phosphatase 133 U/L (40-130) H 10/21/22 18:00 Troponin T Baseline 20 ng/L (0-15) H 10/21/22 18:00 Troponin T 120 Minute 21.96 ng/L (0-15) H 10/21/22 20:05 Delta Troponin T 1.96 ABS# (0-10) 10/21/22 20:05 NT-Pro-B Natriuret Pep 6245 pg/mL (0-125) H 10/21/22 18:00 Total Protein 7.6 g/dL (6.6-8.7) 10/21/22 18:00 Albumin 3.6 g/dL (3.5-5.2) 10/21/22 18:00 Globulin 4.0 g/dL (1.3-4.6) 10/21/22 18:00 EKG Data EKG 1: I personally reviewed and interpreted this EKG as follows: EKG interpretation date: 10/21/22 EKG interpretation time: 19:52 Prior EKG tracings: not available for review Interpretation: EKG showed ventricular rate of 122 bpm, UT interval 136, QRS duration 90, QTc of 482, sinus tachycardia, nonspecific T wave abnormality, Discharge Plan Discharge Patient Disposition: Admitted As Inpatient Clinical Impression: CHF (congestive heart failure), Chest pain Condition: Stable Prescriptions: No Action atorvastatin [Lipitor] 40 mg tablet 40 mg PO DAILY Qty: 90 1RF aspirin 81 mg tablet,delayed release (DR/EC) 81 mg PO DAILY Qty: 90 1RF insulin aspart U-100 [Novolog FlexPen U-100 Insulin] 100 unit/mL (3 mL) insulin pen 4 unit SUBCUT TID 60 Days Qty: 15 4RF Rx Instructions: measure glucose prior to meals, follow sliding scale insulin glargine [Lantus Solostar U-100 Insulin] 100 unit/mL (3 mL) insulin pen 20 unit SUBCUT BID 60 Days Qty: 24 3RF Rx Instructions: last admin was 1/2 dosing carvedilol 6.25 mg tablet 12.5 mg PO BID Qty: 180 1RF Rx Instructions: must administer with a meal/food (DME) OneTouch Ultra Test Strip See Rx Instructions .ROUTE .MEDSUPPLY Qty: 100 6RF Rx Instructions: Measure 4 times per day (DME) lancets [OneTouch UltraSoft Lancets] Misc See Rx Instructions .ROUTE .MEDSUPPLY Qty: 100 5RF Rx Instructions: measure glucose 4 times per day (DME) blood-glucose meter [OneTouch Ultra2 Meter] Kit See Rx Instructions .Route Qty: 1 0RF Rx Instructions: use glucometer 4 times daily ferrous sulfate [Feosol] 325 mg (65 mg iron) tablet 325 mg PO .q48 90 Days Qty: 45 1RF sofosbuvir-velpatasvir [Epclusa] 400-100 mg tablet 1 tab PO DAILY (DME) pen needle, diabetic [BD Ultra-Fine Mini Pen Needle] 31 gauge x 3/16 needle See Rx Instructions .Route Qty: 100 7RF Rx Instructions: 4 times daily with insulin losartan 100 mg tablet 100 mg PO DAILY 30 Days Qty: 30 5RF furosemide 20 mg tablet See Rx Instructions PO BID Qty: 120 0RF Rx Instructions: 40mg in AM, 20mg at 2PM orally twice a day; potassium chloride [Klor-Con M20] 20 mEq tablet,ER particles/crystals 20 meq PO DAILY Qty: 90 3RF Rx Instructions: take with furosemide clopidogrel 75 mg Tablet 75 mg PO DAILY Qty: 90 3RF Referrals: Dallas Kwan MD [Primary Care Provider] - Coding Level of Care Code ED [employer] Operation Manager for Yannick Duneas
--- NOTE | 2022-10-21 19:52 | ECG_ITS ---
[facility] Test Date: 2022-10-21 Pat Name: Leroy Olivo Department: Room: Gender: Male Chinchilla Farmer: : 1965 Requested By: Dede Bhatti Order Number: [id number] Joseph MD: Jim Fenton M.D. Measurements Intervals [place] Rate: 122 P: 60 FL: 136 QRS: 64 QRSD: 90 T: 68 QT: 409 QTc: 585 Interpretive Statements SINUS TACHYCARDIA NONSPECIFIC T-WAVE ABNORMALIIIES Compared to ECG 10/21/2022 16:44:55 T-wave abnormality now present Electronically Signed On 10-21-2022 23:22:59 CDT by Jim Fenton M.D. [id number]
[2022-10-21 20:10] LABS: NT Pro B Type Natriuretic Pept 6245 pg/mL (0-125)
[2022-10-21 20:27] LABS: Troponin 5 2HR 21.96 ng/L (0-15)
[2022-10-21 20:34] LABS: Troponin 5 2HR Delta 1.96 ABS# (0-10)
[2022-10-21] MEDS: FUROsemide 10 mg/mL SDV 4mL 40 MG IVP (20:43)
[2022-10-21] MEDS: ipratropium-albuterol 3 mL Neb INHALATION (20:58)
[2022-10-21] MEDS: ketorolac 30 mg/mL INJ IVP (21:19)
--- NOTE | 2022-10-21 21:23 | PC.NURSE ---
Patient requesting pain medication. States that his chest pain is 7/10 and his back hurts as well. Breathing easier post neb tx. BP slight improvement. Spoke with Dr Valles and orders placed for Toradol.
--- NOTE | 2022-10-21 22:31 | PM.HP ---
Providers/Chief Complaint Primary Care Provider: Dallas Kwan MD Chief Complaint: sob, chest pain History of Present Illness Leroy Olivo is a 57 year old male who presented today with chief complaint of shortness of breath which has been going on for last 7 to 10 days, he has not noticed any fever, productive cough, he does not use oxygen at home currently requiring 2 L, in the ER he has been diagnosed with CHF exacerbation. Stating that he has been compliant with his medications he has not missed any of his medication at all, active smoker, he is denying any recreational drugs. No active chest pain complaining of shortness of breath on exertion. Review of Systems Const: Reports: body aches; Denies: fever(s) Eyes: Denies: change in vision ENMT: Denies: throat pain Card: Reports: palpitations and swelling of feet/ankles Resp: Reports: dyspnea GI: Denies: abdominal pain : Denies: flank pain Musc: Denies: neck pain Skin/Breast: Denies: rash Neuro: Denies: headache(s) Psych: Reports: anxiety; Denies: sleeping less Endo: Denies: polyuria Medications/Allergies Home Medications Medication Instructions Recorded Confirmed Last Taken Type blood sugar diagnostic (OneTouch #100 ea 06/25/22 10/22/22 09/29/22 21:00 Rx Ultra Test strips) blood-glucose meter (OneTouch #1 ea 06/25/22 10/22/22 09/29/22 21:00 Rx Ultra2 Meter kit) lancets (OneTouch UltraSoft #100 ea 06/25/22 10/22/22 09/29/22 21:00 Rx Lancets) pen needle, diabetic 31 gauge x #100 ea 06/30/22 10/22/22 09/29/22 21:00 Rx 3/16 (BD Ultra-Fine Mini Pen Needle) aspirin 81 mg tablet,delayed 81 mg PO DAILY #90 tabs 08/06/22 10/22/22 09/29/22 21:00 Rx release atorvastatin 40 mg tablet (Lipitor) 40 mg PO DAILY #90 tabs 08/06/22 10/22/22 09/29/22 21:00 Rx insulin aspart U-100 100 unit/mL 4 unit (0.04 mL) SUBCUT TID 60 08/06/22 10/22/22 09/29/22 15:00 Rx (3 mL) subcutaneous pen (Novolog days #15 mL FlexPen U-100 Insulin aspart) insulin glargine 100 unit/mL (3 20 unit (0.2 mL) SUBCUT BID 60 08/06/22 10/22/22 09/29/22 21:00 Rx mL) subcutaneous pen (Lantus days #24 mL Solostar U-100 Insulin) losartan 100 mg tablet 100 mg PO DAILY 30 days #30 tabs 08/19/22 10/22/22 09/29/22 21:00 Rx sofosbuvir 400 mg-velpatasvir 100 1 tab PO DAILY 08/19/22 10/22/22 09/29/22 21:00 History mg tablet (Epclusa) clopidogrel 75 mg tablet 75 mg PO DAILY #90 tabs 10/01/22 10/22/22 Unknown Rx carvedilol 6.25 mg tablet 12.5 mg PO BID #180 tabs 10/12/22 10/22/22 Unknown Rx potassium chloride 20 mEq 20 meq PO DAILY #90 tabs 10/12/22 10/22/22 Unknown Rx tablet,extended release(part/cryst) (Klor-Con M) furosemide 20 mg tablet See Rx Instructions .Route .COMPLEX 10/22/22 10/22/22 Unknown History Allergies Allergy/AdvReac Type Severity Reaction Status Date / Time No Known Allergies Allergy Verified 10/22/22 08:28 PFSH Acute PFSH: Medical History Atherosclerosis of [place] coronary artery without angina pectoris 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 Diabetes Diabetic peripheral neuropathy associated with type 2 diabetes mellitus Hepatitis C HTN (hypertension) Methamphetamine use Non-healing wound of left lower extremity Open tibial fracture Orthopedic hardware present Smoking Surgical History History of surgery on lower extremity Family History Other Crohn's disease Diabetes Hyperlipidemia Hypertension Denies family history of CAD (coronary artery disease) Clotting disorder Dementia Psychiatric illness Chronic kidney disease (CKD) Anesthesia complication Bleeding disorder Lung disease Cancer Stroke Social History Smoking and tobacco status: smoker, details unknown cigarettes [ Other cigarette details: quit 2018. 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 Current gender identity: Male Special costa needs: No Agree to transfusion: Yes Vitals/I&O/Wt Last Vital Signs Temp 98.2 F 10/21/22 16:45 Pulse 117 H 10/21/22 22:00 Resp 17 10/21/22 22:00 BP 156/97 10/21/22 22:00 Pulse Ox 97 10/21/22 22:00 O2 Del Method Nasal Cannula 10/21/22 21:24 O2 Flow Rate 2 10/21/22 20:50 Physical Exam Narrative: -Prydeinig male Currently on 2 L Crackles noted on lung auscultation Abdomen soft Nonfocal neuro exam GCS 15 Appears stated age S1, S2 sinus tachycardia Heart rate in the 130s Data 10/22/22 02:52 10/22/22 02:52 A&P Assessment and plan (1) CHF (congestive heart failure): Qualifiers: Heart failure chronicity: acute on chronic Heart failure type: unspecified Qualified Code(s): I50.9 - Heart failure, unspecified (2) BJORN (iron deficiency anemia): (3) Tobacco abuse counseling: (4) Tobacco use disorder, moderate, dependence: (5) Heart failure with preserved ejection fraction: (6) Diabetes: (7) Diabetic peripheral neuropathy associated with type 2 diabetes mellitus: (8) Hepatitis C: Qualifiers: Viral hepatitis chronicity: acute Hepatic coma status: without hepatic coma Qualified Code(s): B17.10 - Acute hepatitis C without hepatic coma Plan Acute CHF exacerbation EF preserved Recent stent placement by Dr. Johnson Increase the dose of diuretics to IV Bumex Monitor for electrolytes Patient is hypertensive as well Check TSH and drug screen Check D-dimer Sinus tachycardia I will increase the dose of Coreg Requested D-dimer and drug screen Acute hypoxia related to CHF exacerbation X-ray consistent with vascular congestion Anticipate improvement with diuresis Currently requiring 2 L Continue dual antiplatelet therapy for recent stent placement Cardiac consistent carb diet and Hypertensive emergency with heart failure exacerbation Optimize antihypertensive regimen Full code Attestations Medical Necessity Statement*: Anticipating discharge within 48 hours Diagnoses CHF (congestive heart failure) I50.9 Heart failure chronicity: acute on chronic Heart failure type: unspecified BJORN (iron deficiency anemia) D50.9 Tobacco abuse counseling Z71.6 Tobacco use disorder, moderate, dependence F17.200 Heart failure with preserved ejection fraction I50.30 Diabetes E11.9 Diabetic peripheral neuropathy associated with type 2 diabetes mellitus E11.42 Hepatitis C B17.10 Viral hepatitis chronicity: acute Hepatic coma status: without hepatic coma
[2022-10-21 22:46] LABS: D Dimer 0.52 ug/mIFEU (0-0.59)
[2022-10-21 22:48] LABS: Add Urine Culture? No; Add Urine Microscopic? YES; Bacteria Urine TRACE /hpf; Bilirubin Urine Neg (Negative); Blood Urine 2+ (Negative); Glucose Urine UA Norm (Normal); Ketones Urine Negative (Negative); Leukocyte Esterase Urine Negative (Negative); Nitrate Urine Negative (Negative); Protein Urine Trace (Negative); RBC Urine 0-4 /hpf (0-2); Squamous Epithelial Cell Urine 0-4 /hpf (0-5); Urine Appearance Clear (CLEAR); Urine Color Colorless (Yellow); Urobilinogen Urine Norm (Negative); WBC Urine 0-4 /hpf (0-5); pH Urine 7 (5-7)
[2022-10-21 22:52] LABS: Amphetamines Screen Urine Positive (Negative); Barbiturates Screen Urine Negative (Negative); Benzodiazepines Screen Urine Negative (Negative); Cocaine Screen Urine Negative (Negative); Opiate Screen Urine Negative (Negative); PCP Screen Urine Negative (Negative); THC Screen Urine Negative (Negative)
[2022-10-21 23:25] LABS: Estmated Average Glucose 200; Hemoglobin A1C 8.6 % (4.0-6.0)
--- NOTE | 2022-10-21 23:44 | ECG_ITS ---
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 Measurements Intervals [place] Rate: 108 P: 66 [place]: 155 QRS: 93 QRSD: 89 T: 70 QT: 374 QTc: 502 Interpretive Statements SINUS TACHYCARDIA LEFT ATRIAL ENLARGEMENT [-0.15mV P-WAVE IN V1/V2] BORDERLINE RIGHT AXIS DEVIATION [QRS AXIS > 90] Compared to ECG 10/21/2022 19:52:09 Atrial abnormality now present Electronically Signed On 10-22-2022 10:34:14 CDT by Kaci Chaney M.D. [id number]
[2022-10-21 23:57] LABS: Troponin 5 6HR 21.25 ng/L (0-15)
[2022-10-22] VITALS (63 sets, daily range): BP systolic 90–185; BP diastolic 51–135; PULSE 91–142; RESP 13–40; TEMP 36.6–37; O2SAT 88–98; BMI 24.6
[2022-10-22 00:02] LABS: Troponin 5 6HR Delta 1.25 ng/L (0-12)
[2022-10-22] MEDS: FUROsemide 10 mg/mL SDV 10mL 60 MG IVP ×3 (00:31→22:00)
[2022-10-22] MEDS: heparin 5,000 unit/mL INJ 1 mL 5000 UNIT SUBCUT ×3 (00:31→22:23)
[2022-10-22 02:12] LABS: Procalcitonin 0.04 ng/mL (0-0.5); Thyroid Stimulating Hormone 1.32 uIU/mL (0.27-4.20); Vitamin B12 494 pg/mL (232-1245)
[2022-10-22 03:11] LABS: Basophils % 0.3 %; Eosinophils # 0.1 10^3/uL (0.0-0.8); Eosinophils % 0.8 %; Hematocrit 42.8 % (42.0-52.0); Lymphocytes # 2.3 10^3/uL (0.8-4.8); Mean Corpuscular HGB Conc 32.7 g/dL (30.0-36.0); Mean Corpuscular Hemoglobin 30.7 pg (28.0-34.0); Mean Corpuscular Volume 93.9 fl (80-94); Mean Platelet Volume 11.7 fL (7.4-10.4); Monocytes # 0.8 10^3/uL (0.2-0.9); Monocytes % 7.7 %; Neutrophils # 6.94 10^3/uL (1.8-7.7); Nucleated Red Blood Cells % 0 %; Platelet Count 182 10^3/cmm (130-400); Red Blood Count 4.56 10^6/uL (4.1-5.3); Red Cell Distribution Width 12.8 % (12.1-15.1); White Blood Count 10.2 10^3/uL (4.0-10.0)
[2022-10-22 03:33] LABS: Anion Gap 15.6 (5-19); Blood Urea Nitrogen 14 mg/dL (6-20); Calcium 8.7 mg/dL (8.5-10.5); Carbon Dioxide 23 mmol/L (22-29); Chloride 104 mmol/L (98-107); Glomerular Filtration Rate 139.7 mL/min (90-130); Glucose 145 mg/dL (65-115); Magnesium 1.5 mg/dL (1.7-2.3); Osmolality Calculated 291 mOsm/kg (285-295); Phosphorus 3.3 mg/dL (2.5-4.5); Potassium 3.6 mmol/L (3.5-5.1); Sodium 139 mmol/L (136-145)
[2022-10-22 04:10] LABS: ABG PCO2 35.4 mmHg (35-45); ABG PH Result 7.45 (7.35-7.45); Base Excess ABG 1.1 mmol/L (-2.0-2.0); Blood Gas Operator Identificat MONRO; HCO3 ABG 24.8 mmol/L (22-26); Oxygen Device NC; PO2 ABG 57.6 mmHg (80.0-100.0)
[2022-10-22 04:11] LABS: Arterial Blood Gas Hematocrit 42.1 % (42-52); Blood Gas Drawn By MONRO
[2022-10-22 07:21] LABS: Glucose Point of Care 229 mg/dL (70-110)
[2022-10-22] MEDS: hyDRALAzine 25 mg Tablet PO ×2 (08:05→17:13)
[2022-10-22] MEDS: atorvastatin 40 mg Tablet PO (08:05)
[2022-10-22] MEDS: losartan 50 mg Tablet 100 MG PO (08:05)
[2022-10-22] MEDS: clopidogrel 75 mg Tablet PO (08:06)
[2022-10-22] MEDS: carvedilol 6.25 mg Tablet 25 MG PO ×2 (08:06→17:13)
[2022-10-22] MEDS: potassium chloride ER 20 mEq Tablet PO (08:06)
[2022-10-22] MEDS: aspirin 81 mg EC Tablet PO (08:06)
[2022-10-22] MEDS: sennosides-docusate Tablet 1 TAB PO (08:06)
[2022-10-22] MEDS: insulin lispro 100 unit/1 mL SUBCUT ×3 (08:08→17:11)
[2022-10-22] MEDS: cloNIDine 0.1 mg Tablet PO ×2 (08:08→17:12)
[2022-10-22] MEDS: labetalol 5 mg/mL SDV 20mL 10 MG IVP (08:28)
[2022-10-22] MEDS: FUROsemide 10 mg/mL SDV 2mL 20 MG IVP (08:30)
[2022-10-22] MEDS: magnesium sulfate premix 2 GM/50 ML PIGGYBACK IV (08:34)
--- NOTE | 2022-10-22 08:39 | PC.PHAR ---
pt states he is the only one who takes care of his own medications-pt states he takes the medications entered-pt states he is unsure if he is taking epclusa 400-100mg daily written 08/19/22 ext and sally casanova filled epclusa for the pt-pt states he is not taking iron any longer-
--- NOTE | 2022-10-22 10:34 | PM.PN ---
Subjective Subjective: Grossly positive for methamphetamine which patient is denying using at home He does have history of IV drug abuse Currently no active chest pain complaint of shortness of breath Tachycardic and hypertensive This morning give him labetalol and clonidine Vitals/I&O/Wt Last Vital Signs Temp 98.4 F 10/22/22 08:06 Pulse 117 H 10/22/22 08:06 Resp 21 H 10/22/22 08:06 BP 185/123 10/22/22 08:08 Pulse Ox 96 10/22/22 08:06 O2 Del Method Room Air 10/22/22 08:06 O2 Flow Rate 3 10/22/22 08:00 10/21/22 10/22/22 10/22/22 22:59 06:59 14:59 Intake Total 50 / 50 Output Total 300 / 300 400 / 700 450 / 450 Balance -300 / -300 -400 / -700 -400 / -400 Weight last 48 hrs Weight 71.327 kg Weight 71.327 kg Physical Exam Narrative: Awake and alert No active chest pain Hypertensive and tachycardic Bilateral breath sounds mild rhonchi Abdomen soft Mild signs of fluid overload Skin tattoos Low 70 no edema GCS 15 Nonfocal neuro exam Patient is on room air Data 10/22/22 02:52 10/22/22 02:52 A&P Assessment and plan (1) CHF (congestive heart failure): Qualifiers: Heart failure chronicity: acute on chronic Heart failure type: unspecified Qualified Code(s): I50.9 - Heart failure, unspecified (2) BJORN (iron deficiency anemia): (3) Tobacco abuse counseling: (4) Heart failure with preserved ejection fraction: (5) Diabetes: (6) Congestive heart failure: (7) Hepatitis C: Qualifiers: Viral hepatitis chronicity: acute Hepatic coma status: without hepatic coma Qualified Code(s): B17.10 - Acute hepatitis C without hepatic coma Plan Tachyarrhythmia induced heart failure Preserved ejection fraction heart exacerbation Continue IV diuresis Given extra dose of Lasix today Inadequate diuretic response Gluckstein positive for methamphetamine Give him clonidine albuterol this morning I would not repeat his echo at this point Manage medically with adjustment of his antihypertensive regimen Patient not requiring oxygen today Patient lives alone Does not want to go to custodial I would like to monitor his heart rate and blood pressure today most likely will discharge tomorrow if remains stable Full code Cardiac diet Patient has refused Johnson catheter for urine output monitoring D-dimer unremarkable Coronary disease status post recent stent continue aspirin Plavix Attestations Medical Necessity Statement*: Discharge tomorrow if remains stable Diagnoses CHF (congestive heart failure) I50.9 Heart failure chronicity: acute on chronic Heart failure type: unspecified BJRON (iron deficiency anemia) D50.9 Tobacco abuse counseling Z71.6 Heart failure with preserved ejection fraction I50.30 Diabetes E11.9 Hepatitis C B17.10 Viral hepatitis chronicity: acute Hepatic coma status: without hepatic coma
--- NOTE | 2022-10-22 10:43 | PC.CHAP ---
Pastoral Care Encounter/Spiritual Assessment Type of Contact [] Declined cell stripper visit [] Patient/Family/Request visit [] Outpatient visit [] Follow-up visit [] Physician referral [] Code/Alert [x] Routine visit [] Staff referral [] Actively dying [] Patient sleeping [] Family support [] [] Out of room [] Palliative care [] [x] Receiving care in room [] Pre-surgical visit [] Trauma [] Long length of stay [] ICU visit [] Other: Relational/Emotional Strength [x] Patient feels connected with others/family/visitors/staff [] Distress [] Loneliness/isolation [] Abandonment Spirituality of Patient [x] Person of Moon [] Attends Mandaen of their Moon [x] Believes in Prayer [] Reads Bible or Sikhism materials [] There are Spiritual issues to be addressed [employer] Interventions [x] Prayer [x] Active listening [x] Non-anxious presence [x] Spiritual/emotional support [] Crisis/trauma care [x] Spiritual counseling [] Bereavement support [] Provided bereavement packet [] Provided Bible/devotional materials [] Provided toy/stuffed animal, coloring book to patient or family member [] Provided Communion [] Anointing/[place] [] Salvation [x] Completed spiritual assessment [] Other: Impact on Illness or Injury [] Angry [] Fearful [] Anxious [] Often cries [] Exhaustion [] Unable to work [] Unable to attend protestant [] Unable to walk/stand [] Unable to read [] Unable to drive [] Unable to eat/drink [] Unable to sleep [] Unable to be with family [] Patient intubated [] Other: Summary heart and lungs congestion trouble breathing has a good attitude going home Time spent with patient 10 mins
[2022-10-22 11:24] LABS: Glucose Point of Care 282 mg/dL (70-110)
[2022-10-22] MEDS: nitroglycerin 1 gm/inch oint Pkt 0.5 INCH TOPICAL ×2 (11:32→17:11)
--- NOTE | 2022-10-22 15:07 | PC.NURSE ---
Patient resting comfortably in bed so far thus shift. Patient transferred to [place] at approximately 1500
[2022-10-22 16:41] LABS: Glucose Point of Care 172 mg/dL (70-110)
[2022-10-22 17:24] LABS: Blood Gas Allen Test Pos; Blood Gas Sample Site Radial, right; Blood Gas Sample Type Arterial
[2022-10-22 21:20] LABS: Glucose Point of Care 179 mg/dL (70-110)
[2022-10-22] MEDS: insulin glargine 100 units/1 mL 20 UNIT SUBCUT (22:22)
--- NOTE | 2022-10-22 22:58 | PC.NURSE ---
pt due to get 0.5 gm of nitro topically at 2245. BP was 103/61 and HR was 91. Pt denies any chest pain or discomfort at this time. Medication held per Dr. Gamble.
[2022-10-23] VITALS (8 sets, daily range): BP systolic 96–157; BP diastolic 61–96; PULSE 54–93; RESP 16–20; TEMP 36.5–37.2; O2SAT 93–99
[2022-10-23 03:16] LABS: Anion Gap 12.3 (5-19); Blood Urea Nitrogen 17 mg/dL (6-20); Calcium 8.7 mg/dL (8.5-10.5); Carbon Dioxide 28 mmol/L (22-29); Chloride 105 mmol/L (98-107); Glomerular Filtration Rate 119.7 mL/min (90-130); Glucose 118 mg/dL (65-115); Osmolality Calculated 297 mOsm/kg (285-295); Potassium 3.3 mmol/L (3.5-5.1); Sodium 142 mmol/L (136-145)
[2022-10-23] MEDS: nitroglycerin 1 gm/inch oint Pkt 0.5 INCH TOPICAL (04:46)
[2022-10-23 06:24] LABS: Glucose Point of Care 126 mg/dL (70-110)
--- NOTE | 2022-10-23 10:08 | PM.DCS ---
Discharge Providers Date of Admission: 10/21/22 22:33 Date of Discharge: October 23, 2022 Attending Provider at Admission: Jeff Macias MD Attending Provider at Discharge: Jeff Macias MD Primary Care Provider: Dallas Kwan MD Diagnoses at Discharge Discharge Diagnosis (1) CHF (congestive heart failure): Status: Acute Qualifiers: Heart failure chronicity: acute on chronic Heart failure type: unspecified Qualified Code(s): I50.9 - Heart failure, unspecified (2) BJORN (iron deficiency anemia): Status: Acute (3) Tobacco abuse counseling: Status: Acute (4) Heart failure with preserved ejection fraction: Status: Acute (5) Diabetes: Status: Acute (6) Hepatitis C: Status: Acute Qualifiers: Viral hepatitis chronicity: acute Hepatic coma status: without hepatic coma Qualified Code(s): B17.10 - Acute hepatitis C without hepatic coma Reason for Visit Reason for Visit: sob, chest pain Hospital Course Hospital Course 57-year male with history of coronary disease, preserved ejection fraction heart failure exacerbation presented with worsening of shortness of breath, drug screen positive for methamphetamine, patient was hypertensive and tachycardic and received multiple dose of clonidine, we were able to control his blood pressure and heart rate eventually, patient responded well to diuretics with negative fluid balance of 2 L Patient recently had an echo Patient uses 2 L of oxygen at baseline, he does not have electricity at home patient is stating that he plugs his oxygen to his neighbors electricity sockets Patient is noncompliant, high risk for readmissions, at the time of discharge I will add Bumex along potassium supplement, added hydralazine for hypertension and increased the dose of Coreg Physical Exam Narrative: S1, S2 Awake and alert GCS 15 Blood pressure stable Rate in 70s Patient is asymptomatic no active chest pain or shortness of breath Currently on 2 L Discharge Data Studies Completed and Pending Completed Studies During Hospitalization Category Date Time Status XR chest 1V portable [id number] Stat Exams 10/21/22 17:44 Completed Radiology Impressions Chest X-Ray 10/21/22 17:44 IMPRESSION: Cardiomegaly with findings suggestive of mild CHF. Laboratory Results WBC 10.2 10^3/uL (4.0-10.0) H 10/22/22 02:52 RBC 4.56 10^6/uL (4.1-5.3) 10/22/22 02:52 Hgb 14.0 g/dL (11.7-16.6) 10/22/22 02:52 Hct 42.8 % (42.0-52.0) 10/22/22 02:52 MCV 93.9 fl (80-94) 10/22/22 02:52 MCH 30.7 pg (28.0-34.0) 10/22/22 02:52 MCHC 32.7 g/dL (30.0-36.0) 10/22/22 02:52 RDW 12.8 % (12.1-15.1) 10/22/22 02:52 Plt Count 182 10^3/cmm (130-400) 10/22/22 02:52 MPV 11.7 fL (7.4-10.4) H 10/22/22 02:52 Neut % (Auto) 68.0 % 10/22/22 02:52 Lymph % (Auto) 23.0 % 10/22/22 02:52 [place] % (Auto) 7.7 % 10/22/22 02:52 Eos % (Auto) 0.8 % 10/22/22 02:52 Baso % (Auto) 0.3 % 10/22/22 02:52 Neut # (Auto) 6.94 10^3/uL (1.8-7.7) 10/22/22 02:52 Lymph # (Auto) 2.3 10^3/uL (0.8-4.8) 10/22/22 02:52 [place] # (Auto) 0.8 10^3/uL (0.2-0.9) 10/22/22 02:52 Eos # (Auto) 0.1 10^3/uL (0.0-0.8) 10/22/22 02:52 Baso # (Auto) 0.0 10^3/uL (0.0-0.1) 10/22/22 02:52 Nucleated RBC % (auto) 0 % 10/22/22 02:52 Nucleated RBCs # 0.0 /100WBC 10/22/22 02:52 PT 14.10 SECONDS (12.1-14.9) 10/21/22 18:00 INR 1.06 (0.8-1.2) 10/21/22 18:00 D-Dimer 0.52 ug/mIFEU (0-0.59) 10/21/22 18:00 Specimen Type Arterial 10/22/22 03:54 Sample Site Radial, right 10/22/22 03:54 ABG pH 7.45 (7.35-7.45) 10/22/22 03:54 ABG pCO2 35.4 mmHg (35-45) 10/22/22 03:54 ABG pO2 57.6 mmHg (80.0-100.0) L 10/22/22 03:54 ABG HCO3 24.8 mmol/L (22-26) 10/22/22 03:54 ABG Base Excess 1.1 mmol/L (-2.0-2.0) 10/22/22 03:54 Frandy Test Pos 10/22/22 03:54 Hematocrit 42.1 % (42-52) 10/22/22 03:54 O2 Delivery Device Nc 10/22/22 03:54 O2 Liters/Min 2.0 % 10/22/22 03:54 FiO2 28.0 % 10/22/22 03:54 Specimen Drawn By Sunny 10/22/22 03:54 Insurance Sales Agent ID Sunny 10/22/22 03:54 Blood Gas Notified Time 0359 10/22/22 03:54 Sodium 142 mmol/L (136-145) 10/23/22 02:29 Potassium 3.3 mmol/L (3.5-5.1) L 10/23/22 02:29 Chloride 105 mmol/L (98-107) 10/23/22 02:29 Carbon Dioxide 28 mmol/L (22-29) 10/23/22 02:29 Anion Gap 12.3 (5-19) 10/23/22 02:29 BUN 17 mg/dL (6-20) 10/23/22 02:29 Creatinine 0.8 mg/dL (0.7-1.2) 10/23/22 02:29 GFR Calculation 119.7 mL/min (90-130) 10/23/22 02:29 Glucose 118 mg/dL (65-115) H 10/23/22 02:29 POC Glucose 126 mg/dL (70-110) H 10/23/22 06:20 Estimat Average Glucose 200 10/21/22 18:00 Hemoglobin A1c 8.6 % (4.0-6.0) H 10/21/22 18:00 Calculated Osmolality 297 mOsm/kg (285-295) H 10/23/22 02:29 Calcium 8.7 mg/dL (8.5-10.5) 10/23/22 02:29 Phosphorus 3.3 mg/dL (2.5-4.5) 10/22/22 02:52 Magnesium 1.5 mg/dL (1.7-2.3) L 10/22/22 02:52 Total Bilirubin 0.6 mg/dL (0.15-1.2) 10/21/22 18:00 AST 45 U/L (0-40) H 10/21/22 18:00 ALT 47 U/L (0-41) H 10/21/22 18:00 Alkaline Phosphatase 133 U/L (40-130) H 10/21/22 18:00 Troponin T Baseline 20 ng/L (0-15) H 10/21/22 18:00 Troponin T 120 Minute 21.96 ng/L (0-15) H 10/21/22 20:05 Delta Troponin T 1.96 ABS# (0-10) 10/21/22 20:05 Troponin T Hi Sens 6Hr 21.25 ng/L (0-15) H 10/21/22 23:20 Troponin T Hi Sens 6Hr Delta 1.25 ng/L (0-12) 10/21/22 23:20 C-Reactive Protein 3.0 mg/L (0.0-4.9) 10/22/22 02:52 NT-Pro-B Natriuret Pep 6245 pg/mL (0-125) H 10/21/22 18:00 Total Protein 7.6 g/dL (6.6-8.7) 10/21/22 18:00 Albumin 3.6 g/dL (3.5-5.2) 10/21/22 18:00 Globulin 4.0 g/dL (1.3-4.6) 10/21/22 18:00 Vitamin B12 494 pg/mL (232-1245) 10/21/22 18:00 Procalcitonin 0.04 ng/mL (0-0.5) 10/21/22 18:00 TSH 1.32 uIU/mL (0.27-4.20) 10/21/22 18:00 Urine Color Colorless (Yellow) 10/21/22 22:29 Urine Appearance Clear (CLEAR) 10/21/22 22:29 Urine pH 7 (5-7) 10/21/22 22:29 Ur Specific Mena 1.010 (1.005-1.030) 10/21/22 22:29 Urine Protein Trace (Negative) 10/21/22 22:29 Urine Glucose (UA) Norm (Normal) 10/21/22 22:29 Urine Ketones Negative (Negative) 10/21/22 22:29 Urine Blood 2+ (Negative) H 10/21/22 22:29 Urine Nitrate Negative (Negative) 10/21/22 22: Urine Bilirubin Neg (Negative) 10/21/22 22: Urine Urobilinogen Norm mg/dL (Negative) 10/21/22 22:29 Ur Leukocyte Esterase Negative (Negative) 10/21/22 22:29 Urine RBC 0-4 /hpf (0-2) H 10/21/22 22:29 Urine WBC 0-4 /hpf (0-5) H 10/21/22 22:29 Ur Squamous Epith Cells 0-4 /hpf (0-5) H 10/21/22 22:29 Amorphous Sediment Not Reportable 10/21/22 22:29 Urine Bacteria Trace /hpf (NONE) 10/21/22 22:29 Urine Opiates Screen Negative ng/mL (Negative) 10/21/22 22:29 Ur Barbiturates Screen Negative ng/mL (Negative) 10/21/22 22:29 Ur Phencyclidine Scrn Negative ng/mL (Negative) 10/21/22 22:29 Ur Amphetamines Screen Positive ng/mL (Negative) H 10/21/22 22:29 U Benzodiazepines Scrn Negative ng/mL (Negative) 10/21/22 22:29 Urine Cocaine Screen Negative ng/mL (Negative) 10/21/22 22:29 U Marijuana (THC) Screen Negative ng/mL (Negative) 10/21/22 22:29 Vitals Last Vital Signs Temp 98.3 F 10/23/22 07:32 Pulse 93 10/23/22 08:58 Resp 20 H 10/23/22 08:58 BP 157/96 10/23/22 07:32 Pulse Ox 93 10/23/22 08:58 O2 Del Method Nasal Cannula 10/23/22 08:58 O2 Flow Rate 2 10/23/22 08:58 Discharge Plan Discharge Patient Disposition: Home Condition: Stable Prescriptions: New bumetanide 1 mg tablet 1 mg PO DAILY Qty: 90 3RF potassium chloride 10 mEq tablet extended release 10 meq PO DAILY Qty: 60 0RF carvedilol 6.25 mg Tablet 25 mg PO BID Qty: 60 0RF hydralazine 25 mg tablet 25 mg PO BID Qty: 60 3RF Continued atorvastatin [Lipitor] 40 mg tablet 40 mg PO DAILY Qty: 90 1RF aspirin 81 mg tablet,delayed release (DR/EC) 81 mg PO DAILY Qty: 90 1RF insulin aspart U-100 [Novolog FlexPen U-100 Insulin] 100 unit/mL (3 mL) insulin pen 4 unit SUBCUT TID 60 Days Qty: 15 4RF Rx Instructions: measure glucose prior to meals, follow sliding scale insulin glargine [Lantus Solostar U-100 Insulin] 100 unit/mL (3 mL) insulin pen 20 unit SUBCUT BID 60 Days Qty: 24 3RF (DME) OneTouch Ultra Test Strip See Rx Instructions .ROUTE .MEDSUPPLY Qty: 100 6RF Rx Instructions: Measure 4 times per day (DME) lancets [OneTouch UltraSoft Lancets] Misc See Rx Instructions .ROUTE .MEDSUPPLY Qty: 100 5RF Rx Instructions: measure glucose 4 times per day (DME) blood-glucose meter [OneTouch Ultra2 Meter] Kit See Rx Instructions .Route Qty: 1 0RF Rx Instructions: use glucometer 4 times daily sofosbuvir-velpatasvir [Epclusa] 400-100 mg tablet 1 tab PO DAILY Rx Instructions: rx written 08/19/22-pt unsure if takes-ext doesnt show filled (DME) pen needle, diabetic [BD Ultra-Fine Mini Pen Needle] 31 gauge x 3/16 needle See Rx Instructions .Route Qty: 100 7RF Rx Instructions: 4 times daily with insulin losartan 100 mg tablet 100 mg PO DAILY 30 Days Qty: 30 5RF potassium chloride [Klor-Con M20] 20 mEq tablet,ER particles/crystals 20 meq PO DAILY Qty: 90 3RF Rx Instructions: take with furosemide clopidogrel 75 mg Tablet 75 mg PO DAILY Qty: 90 3RF Discontinued carvedilol 6.25 mg tablet 12.5 mg PO BID Qty: 180 1RF Rx Instructions: must administer with a meal/food furosemide 20 mg tablet See Rx Instructions .ROUTE .COMPLEX Rx Instructions: 40mg po qam and 20mg po at 14:00 Discharge Orders: Discharge Order (Routine); Ordered 10/23/22 Ordered By: Jeff Macias Referrals: Dallas Kwan MD [Primary Care Provider] - Patient Instructions: Opioid Safety Discharge Attestations Time Spent in Discharge Care*: greater than 30 min Quality Metrics Clinical Quality Measures [ No reported AMI, CVA or VTE this stay] Coding Level of Care Code Acute Code for Chg Fwd Diagnoses CHF (congestive heart failure) I50.9 Heart failure chronicity: acute on chronic Heart failure type: unspecified BJORN (iron deficiency anemia) D50.9 Tobacco abuse counseling Z71.6 Heart failure with preserved ejection fraction I50.30 Diabetes E11.9 Hepatitis C B17.10 Viral hepatitis chronicity: acute Hepatic coma status: without hepatic coma
[2022-10-23] MEDS: losartan 50 mg Tablet 100 MG PO (10:17)
[2022-10-23] MEDS: aspirin 81 mg EC Tablet PO (10:17)
[2022-10-23] MEDS: heparin 5,000 unit/mL INJ 1 mL 5000 UNIT SUBCUT (10:18)
[2022-10-23] MEDS: clopidogrel 75 mg Tablet PO (10:18)
[2022-10-23] MEDS: atorvastatin 40 mg Tablet PO (10:18)
[2022-10-23] MEDS: cloNIDine 0.1 mg Tablet PO (10:18)
[2022-10-23] MEDS: sennosides-docusate Tablet 1 TAB PO (10:18)
[2022-10-23] MEDS: carvedilol 6.25 mg Tablet 25 MG PO (10:18)
[2022-10-23] MEDS: potassium chloride ER 20 mEq Tablet PO (10:18)
[2022-10-23 11:06] LABS: Glucose Point of Care 152 mg/dL (70-110)
[2022-10-23] MEDS: FUROsemide 10 mg/mL SDV 10mL 60 MG IVP (11:14)
[2022-10-23] MEDS: insulin lispro 100 unit/1 mL SUBCUT (11:52)
== END 2022-10-23 13:56 | disposition home or self-care (01) ==
LOC: ER 22:33 → CSU 10-22 07:14 → MEDSURG 10-22 15:12
PROVIDERS: Emergency Medicine; Admitting Provider Internal Medicine; Emergency Provider Emergency Medicine; PCP Family Medicine; Visit Provider Internal Medicine
DX: I11.0 Hypertensive heart disease with heart failure (principal); R00.0 Tachycardia, unspecified; I50.33 Acute on chronic diastolic (congestive) heart failure; I16.0 Hypertensive urgency; Z95.5 Presence of coronary angioplasty implant and graft; E11.42 Type 2 diabetes mellitus with diabetic polyneuropathy; R09.02 Hypoxemia; F15.90 Other stimulant use, unspecified, uncomplicated; Z79.02 Long term (current) use of antithrombotics/antiplatelets; Z99.81 Dependence on supplemental oxygen; Z79.82 Long term (current) use of aspirin; Z79.4 Long term (current) use of insulin; J44.9 Chronic obstructive pulmonary disease, unspecified; F17.290 Nicotine dependence, other tobacco product, uncomplicated; B17.10 Acute hepatitis C without hepatic coma
CPT/HCPCS: 36415; 36416; 36600; 71045; 80048; 80053; 80306; 81001; 82607; 82803; 82962; 83036; 83735; 83880; 84100; 84145; 84443; 84484; 85025; 85378; 85610; 86140; 87641; 93005; 94640; 94760; 96361; 96365; 96372; 96375; 96376; 99285; G0378; J1644; J1815; J1885; J1940; J3475; J3490

== ENCOUNTER → 2022-11-09 15:39 | Outpatient (BNVA) | payer MEDICAID, SELFPAY | PROVIDERS: PCP Family Medicine; Visit Provider Family Medicine | DX: I50.30 Unspecified diastolic (congestive) heart failure (principal); I10 Essential (primary) hypertension; E11.9 Type 2 diabetes mellitus without complications; J34.89 Other specified disorders of nose and nasal sinuses; I25.10 Atherosclerotic heart disease of native coronary artery without angina pectoris; E11.42 Type 2 diabetes mellitus with diabetic polyneuropathy; B17.10 Acute hepatitis C without hepatic coma; D50.9 Iron deficiency anemia, unspecified | CPT/HCPCS: 36415; 87902 ==

== ENCOUNTER → 2023-04-20 12:42 | Outpatient (BNVA) | payer MEDICAID, SELFPAY | PROVIDERS: PCP Family Medicine; Visit Provider Student in an Organized Health Care Education/Training Program | DX: B18.2 Chronic viral hepatitis C (principal); B17.10 Acute hepatitis C without hepatic coma; M86.9 Osteomyelitis, unspecified | CPT/HCPCS: 36415; 80053; 87522 ==

== ENCOUNTER → 2023-05-05 09:09 | Outpatient (BNVA) | payer MEDICAID, SELFPAY | PROVIDERS: PCP Family Medicine; Visit Provider Family Medicine | DX: E11.9 Type 2 diabetes mellitus without complications (principal); I50.30 Unspecified diastolic (congestive) heart failure; I25.10 Atherosclerotic heart disease of native coronary artery without angina pectoris; B17.10 Acute hepatitis C without hepatic coma; I10 Essential (primary) hypertension; H61.21 Impacted cerumen, right ear; H90.3 Sensorineural hearing loss, bilateral | CPT/HCPCS: 83036 ==

== ENCOUNTER 2023-07-28 15:26 | Inpatient (IN) | payer MEDICAID, SELFPAY ==
[2023-07-28] VITALS (9 sets, daily range): BP systolic 133–180; BP diastolic 87–122; PULSE 64–117; RESP 18–38; TEMP 36.8–37.1; O2SAT 91–98; BMI 30.7
--- NOTE | 2023-07-28 15:27 | XRR_ITS ---
PROCEDURE INFORMATION: Exam: XR Chest Exam date and time: 07/28/2023 4:05 PM Age: 58 years old Clinical indication: Cough TECHNIQUE: Imaging protocol: Radiologic exam of the chest. Views: 2 views. COMPARISON: CR (CHEST, ) 10/21/2022 4:49 PM FINDINGS: Lungs: The lungs are well expanded and clear. Prominent bronchovascular markings right lower lobe Pleural spaces: Unremarkable. No pleural effusion. No pneumothorax. Heart/Mediastinum: Unremarkable. No cardiomegaly. Bones/joints: Unremarkable. XR/XR chest 2V* [id number] IMPRESSION: No acute findings.
--- NOTE | 2023-07-28 15:29 | ECG_ITS ---
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 Measurements Intervals [place] Rate: 113 P: 67 [place]: 151 QRS: 87 QRSD: 89 T: 63 QT: 351 QTc: 482 Interpretive Statements SINUS TACHYCARDIA ABNORMAL RHYTHM ECG Compared to ECG 10/22/2022 00:01:57 Atrial abnormality no longer present Electronically Signed On 07-28-2023 23:56:13 CDT by Yolette Snow M.D. [id number] f
--- NOTE | 2023-07-28 16:10 | PC.PHAR ---
pt states he takes care of his own medications-pt verified meds and states he takes what is entered
[2023-07-28 17:05] LABS: Troponin(5th) Baseline 29 ng/L (0-15)
--- NOTE | 2023-07-28 17:08 | ECG_ITS ---
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 Measurements Intervals [place] Rate: 115 P: 64 ME: 149 QRS: 91 QRSD: 89 T: 63 QT: 389 QTc: 538 Interpretive Statements SINUS TACHYCARDIA BORDERLINE RIGHT AXIS DEVIATION [QRS AXIS > 90] ABNORMAL RHYTHM ECG Compared to ECG 07/28/2023 15:29:45 No significant changes Electronically Signed On 07-29-2023 0:06:49 CDT by Yolette Snow M.D. [id number]
[2023-07-28 17:11] LABS: Influenza A by IFA negative (Negative); Influenza B by IFA negative (Negative)
[2023-07-28 17:19] LABS: NT Pro B Type Natriuretic Pept 5865 pg/mL (0-125)
[2023-07-28 17:23] LABS: Basophils % 0.3 %; Eosinophils # 0.1 10^3/uL (0.0-0.8); Eosinophils % 0.6 %; Hematocrit 38.3 % (37-53); Lymphocytes % 10.5 %; Mean Corpuscular HGB Conc 33.2 g/dL (30-55); Mean Corpuscular Hemoglobin 31.8 pg (27-33); Mean Platelet Volume 10.6 fL (7.4-10.4); Monocytes # 0.9 10^3/uL (0.2-0.9); Monocytes % 8.7 %; Neutrophils # 7.78 10^3/uL (1.8-7.7); Neutrophils % 79.7 %; Nucleated Red Blood Cells % 0 %; Platelet Count 266 10^3/cmm (157-399); Red Blood Count 3.99 10^6/uL (3.85-5.65); Red Cell Distribution Width 13.3 % (12.1-15.1); White Blood Count 9.76 10^3/uL (3.29-11.43)
[2023-07-28 17:28] LABS: Alanine Aminotransferase 53 U/L (0-41); Albumin Level 3.7 g/dL (3.5-5.2); Alkaline Phosphatase 148 U/L (40-130); Aspartate Amino Transferase 58 U/L (0-40); Blood Urea Nitrogen 10 mg/dL (8-23); Calcium 8.9 mg/dL (8.5-10.5); Carbon Dioxide 24 mmol/L (22-29); Chloride 107 mmol/L (98-107); Creatinine Clr Calc Pharmacy 79.6914; Globulin 3.7 g/dL (1.3-4.6); Glomerular Filtration Rate 104.2 mL/min (90-130); Glucose 170 mg/dL (65-115); Osmolality Calculated 295 mOsm/kg (285-295); Sodium 141 mmol/L (136-145); Total Bilirubin 0.7 mg/dL (0.15-1.2); Total Protein 7.4 g/dL (6.6-8.7)
--- NOTE | 2023-07-28 17:28 | ED_ITS ---
HPI - SOB/Dyspnea 2 General: Chief Complaint: Shortness of Breath/Dyspnea Stated Complaint: sob, cough Time Seen by Provider: 07/28/23 15:50 Source: patient Mode of arrival: ambulatory History of Present Illness: HPI Narrative: 58-year-old male presents emergency room complaining of shortness of breath and wheezing increased swelling in his legs. Patient has a history of atrial fibrillation COPD and CHF. He has not been taking his medications regularly. Nonproductive cough denies fever. Patient notes progressive worsening of symptoms for the last 2 weeks. He has had some myalgias and some loose stools. The swelling started 2 weeks ago he did increase his Lasix it did not really seem to help much. MD elicited complaint: shortness of breath Pertinent past history: COPD and congestive heart failure Associated symptoms: Reports chest congestion and cough; Deny abdominal pain, chest pain, diaphoresis, dizziness, extremity pain, fever(s), hemoptysis, lightheadedness, myalgias, nausea, orthopnea, palpitations, paresthesias, polydipsia, polyuria, rash, sense of impending doom, syncope or vomiting Treatment prior to arrival: none Related Data: Home oxygen amount: none Review of Systems 2 Const: Denies: fever(s), chills or diaphoresis Card: Denies: chest pain, palpitations, lightheadedness, syncope or orthopnea Resp: Reports: chest congestion; Denies: dyspnea or hemoptysis GI: Denies: abdominal pain, nausea or vomiting : Denies: dysuria, urinary frequency or urinary urgency Musc: Denies: neck pain, back pain or extremity pain Skin/Breast: Denies: rash Neuro: Denies: dizziness Endo: Denies: polyuria or polydipsia PFSH ED 2 PFSH: Medical History Heart failure with preserved ejection fraction Chest pain CHF (congestive heart failure) Atherosclerosis of [place] coronary artery without angina pectoris BJORN (iron deficiency anemia) Tobacco abuse counseling Tobacco use disorder, moderate, dependence Hepatitis C Congestive heart failure 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 Diabetic peripheral neuropathy associated with type 2 diabetes mellitus HTN (hypertension) Orthopedic hardware present Non-healing wound of left lower extremity Open tibial fracture Smoking Methamphetamine use Diabetes Surgical History History of surgery on lower extremity Family History Other Crohn's disease Diabetes Hyperlipidemia Hypertension Denies family history of CAD (coronary artery disease) Clotting disorder Dementia Psychiatric illness Chronic kidney disease (CKD) Anesthesia complication Bleeding disorder Lung disease Cancer Stroke Social History Smoking and tobacco/nicotine status: tobacco/nicotine user, details unknown cigarettes [ Other cigarette details: quit 2018. 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 Current gender identity: Male Special costa needs: No Agree to transfusion: Yes Physical Exam 2 Const: GENERAL APPEARANCE: cooperative and comfortable O RIENTATION/CONSCIOUSNESS: Yes awake, Yes oriented to person, Yes oriented to place and Yes oriented to time HENMT: COMMON NORMALS: normocephalic, atraumatic and hearing grossly normal bilaterally HEAD & SCALP: normocephalic and atraumatic Resp: AUSCULTATION: crackles, rhonchi and wheezes Cardio: COMMON NORMALS: regular rhythm and No murmurs present (Cardio) R ATE: tachycardic RHYTHM: regular rhythm GI: COMMON NORMALS: Soft to palpation and No hepatosplenomegaly present A USCULTATION: Yes normoactive bowel sounds PALPATION: Yes Soft to palpation, No Tenderness to palpation present (GI), No Guarding due to palpation present (GI) and Yes No hepatosplenomegaly present Extremity: COMMON NORMALS: normal to inspection, capillary refill normal, no clubbing, cyanosis or edema, no calf tenderness and no pedal edema Neuro: SENSORIUM/ORIENTATION: Yes oriented to person, Yes oriented to place and Yes oriented to time Skin: COMMON NORMALS: no rashes or lesions noted GENERAL SKIN EXAM: no rashes or lesions noted Course 2 Vital Signs: Vital signs: Vital Signs Temperature 97.9 F 07/31/23 14:42 Pulse Rate 84 07/31/23 14:42 Respiratory Rate 14 07/31/23 14:42 Blood Pressure 144/90 07/31/23 14:42 Pulse Oximetry 93 07/31/23 14:42 Oxygen Delivery Me thod Room Air 07/31/23 11:10 Oxygen Flow Rate 2 07/31/23 09:49 MDM - SOB/Dyspnea Medical Decision Making Exacerbation COPD and CHF. Patient also tested positive for COVID. But he is now requiring 3 L by nasal cannula. Chest x-ray is negative. Will admit for his hypoxia and COVID. Medical Records I reviewed the patient's medical records. Lab Data I reviewed the patient's lab results. 07/31/23 03:19 07/31/23 03:19 Labs/Radiology: Radiology Impressions Chest X-Ray 07/28/23 15:27 IMPRESSION: No acute findings. Chest CTA 07/28/23 18:00 IMPRESSION: 1. No evidence of PE or acute aortic abnormality. 2. Posterior segment right upper lobe and bilateral lower lobe airspace opacities and ground-glass compatible with pneumonia. 3. Small bilateral pleural effusions. Laboratory Results WBC 9.76 10^3/uL (3.29-11.43) 07/28/23 16:20 RBC 3.99 10^6/uL (3.85-5.65) 07/28/23 16:20 Hgb 12.70 g/dL (11.27-16.99) 07/28/23 16:20 Hct 38.3 % (37-53) 07/28/23 16:20 MCV 96.0 fl (82-101) 07/28/23 16:20 MCH 31.8 pg (27-33) 07/28/23 16:20 MCHC 33.2 g/dL (30-55) 07/28/23 16:20 RDW 13.3 % (12.1-15.1) 07/28/23 16:20 Plt Count 266 10^3/cmm (157-399) 07/28/23 16:20 MPV 10.6 fL (7.4-10.4) H 07/28/23 16:20 Neut % (Auto) 79.7 % 07/28/23 16:20 Lymph % (Auto) 10.5 % 07/28/23 16:20 [place] % (Auto) 8.7 % 07/28/23 16:20 Eos % (Auto) 0.6 % 07/28/23 16:20 Baso % (Auto) 0.3 % 07/28/23 16:20 Neut # (Auto) 7.78 10^3/uL (1.8-7.7) H 07/28/23 16:20 Lymph # (Auto) 1.0 10^3/uL (0.8-4.8) 07/28/23 16:20 [place] # (Auto) 0.9 10^3/uL (0.2-0.9) 07/28/23 16:20 Eos # (Auto) 0.1 10^3/uL (0.0-0.8) 07/28/23 16:20 Baso # (Auto) 0.0 10^3/uL (0.0-0.1) 07/28/23 16:20 Nucleated RBC % (auto) 0 % 07/28/23 16:20 Nucleated RBCs # 0.0 /100WBC 07/28/23 16:20 Sodium 141 mmol/L (136-145) 07/28/23 16:20 Potassium 4.0 mmol/L (3.5-5.1) 07/28/23 16:20 Chloride 107 mmol/L (98-107) 07/28/23 16:20 Carbon Dioxide 24 mmol/L (22-29) 07/28/23 16:20 Anion Gap 14.0 (5-19) 07/28/23 16:20 BUN 10 mg/dL (8-23) 07/28/23 16:20 Creatinine 0.9 mg/dL (0.7-1.2) 07/28/23 16:20 GFR Calculation 104.2 mL/min (90-130) 07/28/23 16:20 Glucose 170 mg/dL (65-115) H 07/28/23 16:20 Calculated Osmolality 295 mOsm/kg (285-295) 07/28/23 16:20 Calcium 8.9 mg/dL (8.5-10.5) 07/28/23 16:20 Total Bilirubin 0.7 mg/dL (0.15-1.2) 07/28/23 16:20 AST 58 U/L (0-40) H 07/28/23 16:20 ALT 53 U/L (0-41) H 07/28/23 16:20 Alkaline Phosphatase 148 U/L (40-130) H 07/28/23 16:20 Troponin T Baseline 29 ng/L (0-15) H 07/28/23 16:20 NT-Pro-B Natriuret Pep 5865 pg/mL (0-125) H 07/28/23 16:20 Total Protein 7.4 g/dL (6.6-8.7) 07/28/23 16:20 Albumin 3.7 g/dL (3.5-5.2) 07/28/23 16:20 Globulin 3.7 g/dL (1.3-4.6) 07/28/23 16:20 Influenza Type A Ag negative (Negative) 07/28/23 16:20 Influenza Type B Ag negative (Negative) 07/28/23 16:20 SARS-CoV-2 Ag (Rapid) Negative (Negative) 07/28/23 16:20 All radiology interpretation(s) finalized by discharge Discharge Plan Discharge Patient Disposition: Admitted As Inpatient Admit Provider: Juan M Muñoz Clinical Impression: COVID-19, DM type 2 (diabetes mellitus, type 2), HTN (hypertension), CHF exacerbation, COPD exacerbation Condition: Stable Discharge Diet: Cardiac and Diabetic Discharge Activity: Increase activity as tolerated Coding Level of Care Code ED Veterinary Assistant Technician for Yannick Duenas
--- NOTE | 2023-07-28 18:00 | CTR_ITS ---
PROCEDURE INFORMATION: Exam: CTA Chest With Contrast Exam date and time: 07/28/2023 6:11 PM Age: 58 years old Clinical indication: Shortness of breath and other: Covid +; Additional info: Tachycardia, hypoxia TECHNIQUE: Imaging protocol: Computed tomographic angiography of the chest with contrast. Exam focused on the arteries. 3D rendering (Not supervised by radiologist): MIP and/or 3D reconstructed images were created by the technologist. Radiation optimization: All CT scans at this facility use at least one of these dose optimization techniques: automated exposure control; mA and/or kV adjustment per patient size (includes targeted exams where dose is matched to clinical indication); or iterative reconstruction. Contrast material: OMNI 350; Contrast volume: 78 ml; Contrast route: INTRAVENOUS (IV); COMPARISON: CT angio chest PE protcl [id number] 05/09/2022 1:28 PM RADIATION DOSE METRICS: Total DLP (mGy-cm): 412.89 FINDINGS: Pulmonary arteries: No evidence of pulmonary thromboembolism. Aorta: No evidence of aneurysmal dilatation or dissection of the thoracic aorta. Thyroid: Grossly unremarkable. Lungs: There are airspace opacities and ground-glass in the posterior segment right upper lobe and both lower lobes compatible with pneumonia. There is associated mild-moderate bronchial wall thickening. Mild patchy ground-glass in the lingula is noted. Pleural spaces: Small bilateral pleural effusions. No pneumothorax. Heart: Mild cardiomegaly. No pericardial effusion. Mediastinal space: No evidence of mediastinal mass, fluid collection or hematoma. Lymph nodes: No mediastinal or hilar adenopathy. Bones/joints: No evidence of acute fracture or aggressive osseous lesion. Soft tissues: No evidence of fluid collection or hematoma in the superficial soft tissues. Other findings: No evidence of acute abnormality in the upper abdomen. Mild nodularity of the liver contour raising the question of hepatic cirrhosis. CT/CT angio chest PE protcl [id number] IMPRESSION: 1. No evidence of PE or acute aortic abnormality. 2. Posterior segment right upper lobe and bilateral lower lobe airspace opacities and ground-glass compatible with pneumonia. 3. Small bilateral pleural effusions.
[2023-07-28] MEDS: iohexol 350 mg/mL 500 mL Btl (per mL) IV (18:19)
[2023-07-28] MEDS: dexamethasone 10 mg/mL INJ IM (18:22)
[2023-07-28] MEDS: hyDRALAzine 20 mg/mL INJ 1 mL 10 MG IVP (18:23)
[2023-07-28] MEDS: labetalol 5 mg/mL SDV 20mL 10 MG IVP (18:24)
[2023-07-28] MEDS: FUROsemide 10 mg/mL SDV 10mL 60 MG IVP (18:25)
[2023-07-28 18:48] LABS: Troponin 5 2HR 25.97 ng/L (0-15)
--- NOTE | 2023-07-28 18:57 | P.HP_ITS ---
Providers/Chief Complaint 2 Admitting Physician: Juan M Muñoz Primary Care Provider: Dallas Kwan MD Chief Complaint: sob, cough History of Present Illness Pleasant 58-year-old woman with history of HFpEF, CAD, former smoker, reported history of COPD, BJORN, other medical problems has been progressively getting more short of breath over the past week, 2 weeks ago he had noticed increasing swelling and had to increase his diuretic, this week he has been having dyspnea, cough. In ER he is afebrile, without leukocytosis, but with requirement for 3 L of oxygen, sinus tachycardia, tested positive for COVID-19. Chest x-ray without acute findings. NT proBNP 5865. Transaminitis, AST 58, ALT 53, alk phos 148. Review of Systems 2 Const: Denies: malaise ENMT: Denies: throat pain Card: Reports: edema and dyspnea on exertion; Denies: chest pain Resp: Reports: dyspnea and productive cough; Denies: hemoptysis GI: Denies: abdominal pain, nausea, vomiting or diarrhea : Denies: flank pain Skin/Breast: Denies: rash Neuro: Denies: headache(s) or confusion Medications/Allergies Home Medications Medication Instructions Recorded Confirmed Last Taken Type blood sugar diagnostic (OneTouch #100 ea 06/25/22 07/28/23 09/29/22 21:00 Rx Ultra Test strips) blood-glucose meter (OneTouch #1 ea 06/25/22 07/28/23 09/29/22 21:00 Rx Ultra2 Meter kit) lancets (OneTouch UltraSoft #100 ea 06/25/22 07/28/23 09/29/22 21:00 Rx Lancets) pen needle, diabetic 31 gauge x #100 ea 06/30/22 07/28/23 09/29/22 21:00 Rx 3/16 (BD Ultra-Fine Mini Pen Needle) hydralazine 25 mg tablet 25 mg PO BID #120 tabs 05/05/23 07/28/23 07/28/23 Rx insulin glargine 100 unit/mL (3 25 unit (0.25 mL) SUBCUT BID 60 05/06/23 07/28/23 07/28/23 Rx mL) subcutaneous pen (Lantus days #30 mL Solostar U-100 Insulin) albuterol sulfate 90 mcg/actuation 1 inh inhalation QID PRN shortness 06/07/23 07/28/23 Unknown Rx aerosol inhaler of breath or wheezing #6.7 grams budesonide-formoterol HFA 80 2 puff inhalation BID #10.2 grams 06/14/23 07/28/23 Unknown Rx mcg-4.5 mcg/actuation aerosol inhaler (Symbicort) aspirin 81 mg tablet,delayed 81 mg PO QAM 07/28/23 07/28/23 07/28/23 History release atorvastatin 40 mg tablet (Lipitor) 40 mg PO BEDTIME 07/28/23 07/28/23 07/27/23 History bumetanide 1 mg tablet 1 mg PO QAM 07/28/23 07/28/23 07/28/23 History carvedilol 6.25 mg tablet 6.25 mg PO BID 07/28/23 07/28/23 07/28/23 History clopidogrel 75 mg tablet 75 mg PO QAM 07/28/23 07/28/23 07/28/23 History fluticasone propionate 50 2 spray intranasal DAILY PRN 07/28/23 07/28/23 Unknown History mcg/actuation nasal Allergy Symptoms spray,suspension (Flonase Allergy Relief) insulin aspart U-100 100 unit/mL See Rx Instructions .Route .COMPLEX 07/28/23 07/28/23 07/28/23 History (3 mL) subcutaneous pen (Novolog 4 units FlexPen U-100 Insulin aspart) losartan 100 mg tablet 100 mg PO QAM 07/28/23 07/28/23 07/28/23 History potassium chloride 20 mEq 20 meq PO QAM 07/28/23 07/28/23 07/28/23 History tablet,extended release(part/cryst) (Klor-Con M) Allergies Allergy/AdvReac Type Severity Reaction Status Date / Time No Known Allergies Allergy Verified 07/28/23 16:07 PFSH Acute 2 PFSH: Medical History (Updated 07/28/23 @ 19:45 by Juan M Muñoz MD) Heart failure with preserved ejection fraction Chest pain CHF (congestive heart failure) Atherosclerosis of [place] coronary artery without angina pectoris BJORN (iron deficiency anemia) Tobacco abuse counseling Tobacco use disorder, moderate, dependence Hepatitis C Congestive heart failure 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 Diabetic peripheral neuropathy associated with type 2 diabetes mellitus HTN (hypertension) Orthopedic hardware present Non-healing wound of left lower extremity Open tibial fracture Smoking Methamphetamine use Diabetes Surgical History History of surgery on lower extremity Family History Other Crohn's disease Diabetes Hyperlipidemia Hypertension Denies family history of CAD (coronary artery disease) Clotting disorder Dementia Psychiatric illness Chronic kidney disease (CKD) Anesthesia complication Bleeding disorder Lung disease Cancer Stroke Social History Smoking and tobacco/nicotine status: tobacco/nicotine user, details unknown cigarettes [ Other cigarette details: quit 2018. 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 Current gender identity: Male Special costa needs: No Agree to transfusion: Yes Vitals/I&O/Wt Last Vital Signs Temp 98.2 F 07/28/23 15:33 Pulse 92 07/28/23 18:45 Resp 18 07/28/23 18:45 BP 137/87 07/28/23 18:45 Pulse Ox 91 07/28/23 18:45 O2 Del Method Nasal Cannula 07/28/23 18:45 O2 Flow Rate 2 07/28/23 18:45 Weight last 48 hrs Weight 72.575 kg Physical Exam 2 Const: COMMON NORMALS: patient oriented x3 and alert GENERAL APPEARANCE: c ooperative ORIENTATION/CONSCIOUSNESS: Yes awake HENMT: COMMON NORMALS: oropharynx normal Neck/C-Spine: COMMON NORMALS: no JVD Resp: AUSCULTATION: diminished lung sounds Cardio: COMMON NORMALS: no JVD, regular rhythm, S1 normal heart sound present, S2 normal heart sound present and No murmurs present (Cardio) RHYTHM: regular rhythm HEART SOUNDS: S1 normal heart sound present and S2 normal heart sound present GI: COMMON NORMALS: Normal to inspection, nondistended, normoactive bowel sounds present, Soft to palpation and non-tender PALPATION: Yes Soft to palpation Extremity: COMMON NORMALS: no joint enlargement GENERAL: Yes edema (Trace) Neuro: COMMON NORMALS: patient oriented x3 and moves all extremities S ENSORIUM/ORIENTATION: Yes alert Skin: COMMON NORMALS: no rashes or lesions noted OTHER: BL LE chronic stasis dermatitis. Data 07/28/23 16:20 07/28/23 16:20 A&P Assessment and plan (1) Pneumonia due to COVID-19 virus: Reviewed vitals, CBC, D-dimer, CMP, baseline and 2-hour troponin, NT proBNP, rapid influenza test, rapid COVID-19 test, chest x-ray, CTA, EKG, interpretation with sinus tachycardia, with T wave flattening in 1, aVL, laterally. Without obvious signs of [place]. Pending cardiology read. Reviewed ER physician note, discussed with ER physician. Has been having progressive dyspnea, recently also with lower extremity edema. In ER tested positive for COVID-19 on rapid testing. Started on remdesivir, Decadron. Although I see the test results appears now changed to negative with a comment regarding previously positive, negative in ER. Will check COVID-19 PCR. In case of spurious result will not continue remdesivir. D-dimer noted mildly elevated 0.7. CT angiogram chest without PE. Follow-up D- dimer level. Lovenox for VTE prophylaxis. Complete troponin EKG series. Monitor on telemetry. (2) Heart failure with preserved ejection fraction: Reports worsening edema, he has to double up his bumetanide dose several weeks ago. Still some persistent trace edema, has had worsening dyspnea. NT-proBNP 5865.Received a dose of Lasix IV 60 mg. At home takes bumetanide. Will switch bumetanide to IV 2mg. Monitor SHUBHAM, monitor electrolytes, at risk of electrolyte abnormality. Reassess kidney function. (3) COPD exacerbation: Moderate exacerbation of COPD, dyspnea, diminished air entry on exam, possibly triggered by viral infection. Viral PCR panel requested. Decadron as above. Breathing treatments. Sputum culture. Oxygen support. (4) Hypertension: Poorly controlled hypertension, Very hypertensive in ER, received hydralazine, labetalol. Continue carvedilol, hydralazine, losartan. Cardiac diet. Qualifiers: Hypertension type: primary hypertension Qualified Code(s): I10 - Essential (primary) hypertension Plan DM2: Continue Lantus, sliding scale insulin. Consistent carbohydrate diet. Goals of care discussion: In case of cardiopulmonary arrest would want resuscitation. In case could not make his own decisions names his brother Mack as surrogate decision maker. Attestations 2 Medical Necessity Statement*: Admission of over 2 midnights anticipated for assessment management of congestive heart failure exacerbation, COVID-19 pneumonia, COPD exacerbation, poorly controlled hypertension and gentleman with underlying diabetes. Diagnoses Pneumonia due to COVID-19 virus U07.1; J12.82 Heart failure with preserved ejection fraction I50.30 COPD exacerbation J44.1 Primary hypertension I10 Hypertension type: primary hypertension
[2023-07-28 19:15] LABS: Troponin 5 2HR Delta -3.03 ABS# (0-10)
[2023-07-28] MEDS: remdesivir 200 MG in sodium chloride 0.9% (100 ml) 60 ML 100 MG IV (19:30)
[2023-07-28 19:46] LABS: SARS Covid-2 Antigen Negative (Negative)
--- NOTE | 2023-07-28 19:50 | PC.NURSE ---
RN informed by lab that pt respiratory panel sample is going to be rerun and pt may not be covid +. remdesivir paused at time listed in MAR by this RN. This was communicated to CSU RN taking pt.
[2023-07-28 20:14] LABS: Bilirubin Urine Neg (Negative); Blood Urine 3+ (Negative); Glucose Urine UA 1+ (Normal); Ketones Urine Negative (Negative); Nitrate Urine Negative (Negative); Protein Urine 3+ (Negative); Specific Gravity, Urine 1.015 (1.005-1.030); Urine Appearance Clear (CLEAR); Urine Color Yellow (Yellow); pH Urine 5 (5-7)
[2023-07-28 20:15] LABS: Add Urine Microscopic? YES; Leukocyte Esterase Urine Negative (Negative); Urobilinogen Urine 1 mg/dL (Negative)
[2023-07-28 20:26] LABS: Add Urine Culture? No; Bacteria Urine TRACE /hpf; Mucus Urine 1+ /hpf; WBC Urine 0-4 /hpf (0-5)
[2023-07-28 21:04] LABS: Glucose Point of Care 163 mg/dL (70-110)
[2023-07-28] MEDS: atorvastatin 40 mg Tablet PO (21:36)
[2023-07-28] MEDS: enoxaparin 40 mg/0.4 mL Syringe SUBCUT (21:36)
[2023-07-28 22:50] LABS: Troponin 5 6HR 27.09 ng/L (0-15)
--- NOTE | 2023-07-28 23:01 | ECG_ITS ---
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 Measurements Intervals [place] Rate: 109 P: 74 [place]: 157 QRS: 96 QRSD: 89 T: 88 QT: 370 QTc: 500 Interpretive Statements SINUS TACHYCARDIA POSSIBLE LEFT ATRIAL ENLARGEMENT [-0.1mV P-WAVE IN V1/V2] BORDERLINE RIGHT AXIS DEVIATION [QRS AXIS > 90] ABNORMAL RHYTHM ECG Compared to ECG 07/28/2023 17:08:22 No significant changes Electronically Signed On 07-29-2023 0:08:16 CDT by Yolette Snow M.D. [email or web address]
[2023-07-28 23:02] LABS: Troponin 5 6HR Delta -1.91 ng/L (0-12)
[2023-07-29] VITALS (58 sets, daily range): BP systolic 126–172; BP diastolic 73–113; PULSE 89–118; RESP 15–40; TEMP 36.6–37.3; O2SAT 79–99; BMI 30.9
[2023-07-29 04:14] LABS: Basophils % 0.1 %; Hematocrit 40.4 % (37-53); Lymphocytes # 0.4 10^3/uL (0.8-4.8); Lymphocytes % 4.8 %; Mean Corpuscular HGB Conc 32.4 g/dL (30-55); Mean Corpuscular Hemoglobin 31.5 pg (27-33); Mean Corpuscular Volume 97.1 fl (82-101); Mean Platelet Volume 11.5 fL (7.4-10.4); Monocytes # 0.2 10^3/uL (0.2-0.9); Monocytes % 2.9 %; Neutrophils # 6.86 10^3/uL (1.8-7.7); Neutrophils % 91.8 %; Nucleated Red Blood Cells % 0 %; Platelet Count 193 10^3/cmm (157-399); Red Blood Count 4.16 10^6/uL (3.85-5.65); Red Cell Distribution Width 13.3 % (12.1-15.1); White Blood Count 7.48 10^3/uL (3.29-11.43)
[2023-07-29 04:25] LABS: D Dimer 0.78 ug/mLFEU (0-0.59)
[2023-07-29 04:39] LABS: Alanine Aminotransferase 55 U/L (0-41); Albumin Level 3.6 g/dL (3.5-5.2); Alkaline Phosphatase 151 U/L (40-130); Anion Gap 16.3 (5-19); Aspartate Amino Transferase 52 U/L (0-40); Blood Urea Nitrogen 14 mg/dL (8-23); Calcium 9.4 mg/dL (8.5-10.5); Carbon Dioxide 23 mmol/L (22-29); Chloride 104 mmol/L (98-107); Creatinine Clr Calc Pharmacy 84.0365; Globulin 3.7 g/dL (1.3-4.6); Glomerular Filtration Rate 104.2 mL/min (90-130); Glucose 244 mg/dL (65-115); Magnesium 1.8 mg/dL (1.7-2.3); Osmolality Calculated 297 mOsm/kg (285-295); Potassium 4.3 mmol/L (3.5-5.1); Sodium 139 mmol/L (136-145); Total Bilirubin 0.6 mg/dL (0.15-1.2); Total Protein 7.3 g/dL (6.6-8.7)
[2023-07-29] MEDS: clopidogrel 75 mg Tablet PO (05:21)
[2023-07-29] MEDS: losartan 50 mg Tablet 100 MG PO (05:21)
[2023-07-29] MEDS: aspirin 81 mg EC Tablet PO (05:21)
[2023-07-29 06:39] LABS: Glucose Point of Care 227 mg/dL (70-110)
[2023-07-29] MEDS: insulin glargine 100 units/1 mL 25 UNIT SUBCUT ×2 (08:12→17:33)
[2023-07-29] MEDS: bumetanide 0.25 mg/mL SDV 4 mL 2 MG IVP (08:12)
[2023-07-29] MEDS: insulin lispro 100 unit/1 mL SUBCUT ×4 (08:12→22:07)
[2023-07-29] MEDS: hyDRALAzine 25 mg Tablet PO ×2 (08:13→17:35)
[2023-07-29] MEDS: carvedilol 6.25 mg Tablet PO ×2 (08:13→17:36)
[2023-07-29] MEDS: dexamethasone 10 mg/mL INJ 6 MG IVP (08:13)
[2023-07-29 08:52] LABS: Adenovirus Not Detected (NOT DETECT); Chlamydia Pneumoniae Not Detected (NOT DETECT); Coronavirus 229E,HKU1,NL63,OC4 Not Detected (NOT DETECT); Human Metapneumovirus Not Detected (NOT DETECT); Human Rhinovirus/Enterovirus Not Detected (NOT DETECT); Influenza A Not Detected (NOT DETECT); Influenza A H1 Not Detected (NOT DETECT); Influenza A H1-2009 Not Detected (NOT DETECT); Influenza A H3 Not Detected (NOT DETECT); Influenza B Not Detected (NOT DETECT); Mycoplasma Pneumoniae Not Detected (NOT DETECT); Parainfluenza Virus Type 1 Not Detected (NOT DETECT); Parainfluenza Virus Type 2 Not Detected (NOT DETECT); Parainfluenza Virus Type 3 Not Detected (NOT DETECT); Parainfluenza Virus Type 4 Not Detected (NOT DETECT); Respiratory Syncytial Virus A Not Detected (NOT DETECT); Respiratory Syncytial Virus B Not Detected (NOT DETECT); SARS-COV-2 Not Detected (NOT DETECT)
[2023-07-29] MEDS: magnesium sulfate premix 1 GM/100 ML PIGGYBACK IV (09:50)
[2023-07-29 11:53] LABS: Glucose Point of Care 190 mg/dL (70-110)
[2023-07-29 17:30] LABS: Glucose Point of Care 263 mg/dL (70-110)
--- NOTE | 2023-07-29 18:38 | NMCV_ITS ---
NM margarita perf SPECT r/s* [id number] Leroy Olivo Age: 58 Gender: M : 1965 Exam Date: 07/30/2023 06:40 Ordering Phys: Juan M Muñoz MD Technologist: SOLOMON Borja Exam Location: [facility] Indications: CHEST PAIN STRESS TEST [facility] IMAGE PROTOCOL Rest/Stress 1 Lexiscan Day Radiopharmaceutical Dose (mCi) Administration Site Administered by Rest: Tc-99m 10.6 IV SOLOMON Back Sestamibi Stress:Tc-99m 32.5 IV SOLOMON Back Sestamibi Rest: 30-Jul-2023 60 Discovery 630 Stress: 30-Jul-2023 30 Discovery 630 0.4mg Lexiscan. Images obtained in supine and prone position. SPECT RESULTS Technical Quality: Excellent Raw Data Analysis: Normal Image Corrections: No attenuation or motion correction applied Summed Stress Score: 8 Summed Rest Score: 1 Summed Difference Score: 7 PERFUSION FINDINGS Small to medium sized areas of partially reversible perfusion defect noted in the inferior and inferolateral aguiar. 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 FUNCTIONAL RESULTS (calculated via Gated SPECT) Stress Image LV EF (%): 30 Stress EDV (mL):178 TID: 1.01 Stress ESV (mL):125 FUNCTIONAL FINDINGS: LV systolic function is severely reduced with EF of 30% IMPRESSIONS 1. Small to medium sized areas of prior infarct with minimal matias-infarct ischemia seen in RCA and left circumflex artery territories. 2. LV systolic function is severely reduced with EF of 30%. Severe global hypokinesis seen. Jim Fenton MD (Electronically Signed) Final Date: 30 July 2023 10:17 S
[2023-07-29] MEDS: enoxaparin 40 mg/0.4 mL Syringe SUBCUT (21:05)
[2023-07-29] MEDS: atorvastatin 40 mg Tablet PO (21:05)
[2023-07-29 21:11] LABS: Glucose Point of Care 180 mg/dL (70-110)
--- NOTE | 2023-07-29 23:54 | PM.PN ---
Subjective Subjective: He reports he is doing okay. Feels that he is improving. Denies chest pain or pressure. Having productive cough. Vitals/I&O/Wt Last Vital Signs Temp 99.2 F 07/29/23 21:23 Pulse 106 H 07/29/23 21:23 Resp 18 07/29/23 21:23 BP 126/73 07/29/23 21:23 Pulse Ox 96 07/29/23 21:23 O2 Del Method Nasal Cannula 07/29/23 21:23 O2 Flow Rate 2 07/28/23 22:10 07/29/23 07/29/23 07/30/23 14:59 22:59 06:59 Intake Total 100 / 100 4200 / 4300 Output Total 2110 / 2110 700 / 2810 Balance -2009 / 3500 / 1490 Weight last 48 hrs Weight 81.647 kg Weight 81.647 kg Weight 81.374 kg Weight 81.278 kg Weight 72.575 kg Physical Exam Const: COMMON NORMALS: patient oriented x3 and alert GENERAL APPEARANCE: cooperative ORIENTATION/CONSCIOUSNESS: Yes awake HENMT: COMMON NORMALS: oropharynx normal Neck/C-Spine: COMMON NORMALS: no JVD Resp: AUSCULTATION: diminished lung sounds Cardio: COMMON NORMALS: no JVD, regular rhythm, S1 normal heart sound present, S2 normal heart sound present and No murmurs present (Cardio) RHYTHM: regular rhythm HEART SOUNDS: S1 normal heart sound present and S2 normal heart sound present GI: COMMON NORMALS: Normal to inspection, nondistended, normoactive bowel sounds present, Soft to palpation and non-tender PALPATION: Yes Soft to palpation Extremity: COMMON NORMALS: no joint enlargement GENERAL: Yes edema (Trace) Neuro: COMMON NORMALS: patient oriented x3 and moves all extremities SENSORIUM/ORIENTATION: Yes alert Skin: COMMON NORMALS: no rashes or lesions noted GENERAL SKIN EXAM: no rashes or lesions noted OTHER: BL LE chronic stasis dermatitis. Data 07/29/23 03:48 07/29/23 03:48 A&P Assessment and plan (1) Heart failure with preserved ejection fraction: He states he is concerned regarding worsening of the previously noted coronary disease. It seems he has not had a stent placed previously due to difficult anatomy, did have angioplasty. Discussed with him additional assessment by stress testing, and he would like to go ahead and pursue this.Requested stress test. Continue IV diuretic for CHF exacerbation, reviewed vitals, CBC, CMP. Monitor chemistry due to risk of electro abnormality with IV diuresis. Monitor on telemetry. Monitor SHUBHAM, weights. Reassess kidney function. Discussed with caseworker protective services. (2) COPD exacerbation: As noted below it appears initial result for COVID-19 positive was furious. Confirmatory PCR is negative. Remdesivir stopped. Continue Decadron for COPD exacerbation. Continue breathing treatments. Moderate exacerbation of COPD, dyspnea, diminished air entry on exam, possibly triggered by viral infection. Viral PCR panel requested. Decadron as above. Breathing treatments. Sputum culture. Oxygen support. (3) Pneumonia due to COVID-19 virus: On review of rapid COVID-19 testing it is reported negative, as discussed with him confirmatory test was obtained with PCR and is also negative. Discussed with him we stopped remdesivir. Continue Decadron for COPD exacerbation. Reviewed repeat D-dimer. Reviewed vitals, CBC, D-dimer, CMP, baseline and 2-hour troponin, NT proBNP, rapid influenza test, rapid COVID-19 test, chest x-ray, CTA, EKG, interpretation with sinus tachycardia, with T wave flattening in 1, aVL, laterally. Without obvious signs of [place]. Pending cardiology read. Reviewed ER physician note, discussed with ER physician. Has been having progressive dyspnea, recently also with lower extremity edema. In ER tested positive for COVID-19 on rapid testing. Started on remdesivir, Decadron. Although I see the test results appears now changed to negative with a comment regarding previously positive, negative in ER. Will check COVID-19 PCR. In case of spurious result will not continue remdesivir. D-dimer noted mildly elevated 0.7. CT angiogram chest without PE. Follow-up D-dimer level. Lovenox for VTE prophylaxis. Complete troponin EKG series. Monitor on telemetry. (4) Hypertension: Poorly controlled hypertension, Very hypertensive in ER, received hydralazine, labetalol. Continue carvedilol, hydralazine, losartan. Cardiac diet. Qualifiers: Hypertension type: primary hypertension Qualified Code(s): I10 - Essential (primary) hypertension Plan DM2: Continue Lantus, sliding scale insulin. Consistent carbohydrate diet. Goals of care discussion: In case of cardiopulmonary arrest would want resuscitation. In case could not make his own decisions names his brother Mack as surrogate decision maker. Attestations Medical Necessity Statement*: Continue admission for assessment and management of CHF exacerbation, COPD exacerbation, additional assessment for ischemic heart disease. and High MDM includes amount and/or complexity of data reviewed/ordered [ resulted lab(s)/test(s), ordered lab(s)/test(s) and other healthcare professional discussion] and described risk of complication, morbidity or mortality of management as documented Diagnoses Heart failure with preserved ejection fraction I50.30 COPD exacerbation J44.1 Pneumonia due to COVID-19 virus U07.1; J12.82 Primary hypertension I10 Hypertension type: primary hypertension
[2023-07-30] VITALS (63 sets, daily range): BP systolic 135–174; BP diastolic 79–120; PULSE 88–108; RESP 11–38; TEMP 36.5–37.1; O2SAT 77–100; BMI 30.1
[2023-07-30 04:07] LABS: Basophils % 0.1 %; Hematocrit 37.1 % (37-53); Lymphocytes # 0.8 10^3/uL (0.8-4.8); Lymphocytes % 4.4 %; Mean Corpuscular HGB Conc 33.2 g/dL (30-55); Mean Corpuscular Hemoglobin 31.5 pg (27-33); Mean Corpuscular Volume 94.9 fl (82-101); Mean Platelet Volume 11.3 fL (7.4-10.4); Monocytes # 1.2 10^3/uL (0.2-0.9); Monocytes % 6.7 %; Neutrophils # 15.92 10^3/uL (1.8-7.7); Neutrophils % 88.4 %; Nucleated Red Blood Cells % 0 %; Platelet Count 196 10^3/cmm (157-399); Red Blood Count 3.91 10^6/uL (3.85-5.65); Red Cell Distribution Width 13.5 % (12.1-15.1)
[2023-07-30 04:28] LABS: Alanine Aminotransferase 46 U/L (0-41); Albumin Level 3.5 g/dL (3.5-5.2); Alkaline Phosphatase 130 U/L (40-130); Anion Gap 14.9 (5-19); Aspartate Amino Transferase 33 U/L (0-40); Blood Urea Nitrogen 23 mg/dL (8-23); Carbon Dioxide 25 mmol/L (22-29); Chloride 105 mmol/L (98-107); Creatinine Clr Calc Pharmacy 84.1714; Globulin 3.4 g/dL (1.3-4.6); Glomerular Filtration Rate 104.2 mL/min (90-130); Glucose 157 mg/dL (65-115); Osmolality Calculated 299 mOsm/kg (285-295); Potassium 3.9 mmol/L (3.5-5.1); Sodium 141 mmol/L (136-145); Total Bilirubin 0.5 mg/dL (0.15-1.2); Total Protein 6.9 g/dL (6.6-8.7)
[2023-07-30] MEDS: losartan 50 mg Tablet 100 MG PO (06:04)
[2023-07-30] MEDS: clopidogrel 75 mg Tablet PO (06:04)
[2023-07-30] MEDS: aspirin 81 mg EC Tablet PO (06:04)
[2023-07-30 06:12] LABS: Glucose Point of Care 157 mg/dL (70-110)
[2023-07-30] MEDS: regadenoson 0.4 Mg/5 ml Syringe 0.400000000000000022 MG IVP (07:19)
--- NOTE | 2023-07-30 09:00 | ECG_ITS ---
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 Interpretive Statements NAME OF STUDY: LEXISCAN SESTAMIBI STRESS TEST INDICATION: [Chd, CAD, ] Procedure: At the baseline, the blood pressure was 141/94 mmHg with a heart rate of 99 bpm. The electrocardiogram showed normal sinus rhythm, normal axis with normal ST and T's. The Lexiscan was infused over a period of 20 seconds. A total of 0.4 mg of Lexiscan was infused. The stress phase was continued for a total of 5 minutes. Heart rate was at the end of stress phase was 96 bpm and a blood pressure of 147/92 mmHg. The EKG at the peak infusion revealed normal sinus rhythm with no significant ST-T wave changes. Sestamibi was injected 20 seconds after the Lexiscan infusion. Blood pressure at the end of recovery phase was 142/93 mmHg with a heart rate of 100 bpm. Conclusion: 1. Normal EKG response to Lexiscan infusion 2. No Lexiscan induced chest pain or cardiac arrhythmia. 3. Normal blood pressure and heart rate response. 4. Sestamibi/sestamibi perfusion scan pending; see separate report. Electronically Signed On 08-05-2023 12:35:46 CDT by Jim Fenton M.D. [email or web address]
[2023-07-30] MEDS: insulin glargine 100 units/1 mL 25 UNIT SUBCUT ×2 (09:27→17:44)
[2023-07-30] MEDS: dexamethasone 10 mg/mL INJ 6 MG IVP (09:28)
[2023-07-30] MEDS: bumetanide 0.25 mg/mL SDV 4 mL 2 MG IVP (09:28)
[2023-07-30] MEDS: hyDRALAzine 25 mg Tablet PO ×2 (09:29→17:44)
[2023-07-30] MEDS: carvedilol 6.25 mg Tablet PO ×2 (09:29→17:44)
[2023-07-30 11:23] LABS: Glucose Point of Care 251 mg/dL (70-110)
[2023-07-30] MEDS: insulin lispro 100 unit/1 mL SUBCUT ×2 (12:29→21:15)
--- NOTE | 2023-07-30 14:11 | USCV_ITS ---
Leroy Olivo Age: 58 Gender: M : 1965 Exam Date: 07/30/2023 14:41 Ordering Phys: Juan M Muñoz MD Technologist: ARIANNA [place] [facility] [place]ication: CHRONIC HEART FAILURE, EVAL FOR DROP IN EF BP: 149 / 93 HR: 91 Rhythm: Sinus Technical Quality: Adequate MEASUREMENTS (Male / Female) Normal Values 2D ECHO LV Diastolic Diameter PLAX 5.1 cm 4.2 - 5.9 / 3.9 - 5.3 cm IVS Diastolic Thickness 2.0 cm 0.6 - 1.0 / 0.6 - 0.9 cm IVS Systolic Thickness 2.9 cm LVPW Diastolic Thickness 1.7 cm 0.6 - 1.0 / 0.6 - 0.9 cm LVPW Systolic Thickness 2.6 cm LVOT Diameter 2.0 cm LV Ejection Fraction 2D Teich 72.1 % LV Ejection Fraction MOD 2C 52.6 % LV Ejection Fraction 2C AL 56.4 % LA Diameter 4.1 cm RA Systolic Volume 4C AL 44.1 ml RA Systolic Volume 4C MOD 41.9 ml Aorta at Sinotubular Diameter 2.4 cm IVC Diameter 1.3 cm M-MODE LA Ao Ratio MM 1.2 AV Cusp Separation MM 1.0 cm DOPPLER AV Peak Velocity 121.0 cm/s LVOT Peak Velocity 88.0 cm/s AV Area Cont Eq vti 2.1 cm squared AV Area Cont Eq pk 2.3 cm squared MV Peak Velocity 227.3 cm/s MV Area PHT 5.9 cm squared Mitral E to A Ratio 2.7 TR Peak Velocity 284.0 cm/s TR Peak Gradient 32.3 mmHg TR Mean Velocity 239.0 cm/s TR Mean Gradient 27.0 mmHg TR Velocity Time Integral 98.9 cm TV Peak E Velocity 33.0 cm/s Right Atrial Pressure 3.0 mmHg Pulmonary Artery Systolic Pressu 35.3 mmHg PV Peak Velocity 94.0 cm/s FINDINGS Left Ventricle Normal LV size is a borderline low ejection fraction of 50 %.. Mild diffuse hypokinesia of the left ventricle.moderate left ventricular hypertrophy. Grade III/IV diastolic dysfunction (restrictive filling pattern), severely elevated filling pressures. Right Ventricle Normal right ventricular size and systolic function. Right Atrium Mildly increased right atrial size. Left Atrium Mildly increased left atrial size. Mitral Valve No gross abnormalities noted Aortic Valve Thickened aortic valve. Tricuspid Valve Mild tricuspid valve regurgitation. Pulmonic Valve Mild pulmonary valve regurgitation. Pericardium Normal pericardium without effusion. Aorta Normal ascending aorta dimension. IVC The inferior vena cava appears normal. CONCLUSIONS Normal LV size is a borderline low ejection fraction of 50 %.. Mild diffuse hypokinesia of the left ventricle. Moderate left ventricular hypertrophy. Grade III/IV diastolic dysfunction (restrictive filling pattern), severely elevated filling pressures. Mild biatrial enlargement Thickened aortic valve. Mild tricuspid and pulmonic valve valve regurgitation. Estimated pulmonary artery peak systolic pressure 35 mmHg. There is no pericardial effusion. There are no intracardiac masses. Compared to the study from 05/09/2022, no significant change in the 2D findings. Dr Yolette Snow MD FACC (Electronically Signed) Final Date: 30 July 2023 17:59 S
[2023-07-30 15:36] LABS: Glucose Point of Care 115 mg/dL (70-110)
--- NOTE | 2023-07-30 18:09 | P.PN_ITS ---
Subjective 2 Subjective: Sleeping, wakes up to voice. Denies chest pain or pressure. [place] okay during the stress test. Vitals/I&O/Wt Last Vital Signs Temp 98.8 F 07/30/23 15:49 Pulse 101 H 07/30/23 15:49 Resp 14 07/30/23 15:49 BP 139/90 07/30/23 15:49 Pulse Ox 88 L 07/30/23 16:19 O2 Del Method Room Air 07/30/23 15:49 O2 Flow Rate 3 07/30/23 16:19 07/30/23 07/30/23 07/30/23 06:59 14:59 22:59 Intake Total 600 / 4900 460 / 460 Output Total 500 / 3310 1800 / 1800 260 / 2060 Balance 100 / 1590 -1340 / -1340 -260 / -1600 Weight last 48 hrs Weight 79.605 kg Weight 79.605 kg Weight 81.647 kg Weight 81.647 kg Weight 81.374 kg Weight 81.278 kg Physical Exam 2 Const: COMMON NORMALS: patient oriented x3 and alert GENERAL APPEARANCE: c ooperative ORIENTATION/CONSCIOUSNESS: Yes awake HENMT: COMMON NORMALS: oropharynx normal Neck/C-Spine: COMMON NORMALS: no JVD Resp: AUSCULTATION: diminished lung sounds Cardio: COMMON NORMALS: no JVD, regular rhythm, S1 normal heart sound present, S2 normal heart sound present and No murmurs present (Cardio) RHYTHM: regular rhythm HEART SOUNDS: S1 normal heart sound present and S2 normal heart sound present GI: COMMON NORMALS: Normal to inspection, nondistended, normoactive bowel sounds present, Soft to palpation and non-tender PALPATION: Yes Soft to palpation Extremity: COMMON NORMALS: no joint enlargement GENERAL: Yes edema (Resolving) Neuro: COMMON NORMALS: patient oriented x3 and moves all extremities S ENSORIUM/ORIENTATION: Yes alert Skin: COMMON NORMALS: no rashes or lesions noted GENERAL SKIN EXAM: no rashes or lesions noted OTHER: BL LE chronic stasis dermatitis. Data 07/30/23 03:26 07/30/23 03:26 A&P Assessment and plan (1) Heart failure with preserved ejection fraction: Reviewed vitals, INR, he seems to have elevated large oral intake 5260, will ask for fluid restriction. Overall positive balance 2700. Reviewed potassium, BUN, creatinine, acid-base. Continue diuresis. Underwent stress test, reviewed results, discussed with him, noted small to medium sized area of prior infarct with minimal matias-infarct ischemia seen in RCA and LCx territories. Noted systolic function normal left ventricular reduced at 30% with severe global hypokinesis. Discussed with him. Continue CAD medications. Discussed with him concern for possibility of component of nonischemic cardiomyopathy as well, with history of intermittent methamphetamine use encouraged to avoid any further use, he verbalized understanding of risk of detrimental effects including ischemic and nonischemic effects. Given new decrease in ejection fraction, obtain echocardiogram assessment. Continue IV diuretic for CHF exacerbation. Monitor chemistry due to risk of electro abnormality with IV diuresis. Monitor on telemetry. Monitor SHUBHAM, weights. Reassess kidney function. Discussed with case folder. Obtain home O2 eval. Consider Entresto. (2) COPD exacerbation: Still wheezing, Productive cough. Oxygenation with some improvement, weaning down to 1 L. Continue to wean down as tolerating. Continue Decadron for COPD exacerbation. Decrease Decadron dose to 3 mg. Continue breathing treatments. Moderate exacerbation of COPD, dyspnea, diminished air entry on exam, possibly triggered by viral infection. Viral PCR panel reviewed. Pending sputum culture. (3) Pneumonia due to COVID-19 virus: On review of rapid COVID-19 testing it is reported negative, as discussed with him confirmatory test was obtained with PCR and is also negative. Discussed with him we stopped remdesivir. Continue Decadron for COPD exacerbation. Reviewed repeat D-dimer. Reviewed vitals, CBC, D-dimer, CMP, baseline and 2-hour troponin, NT proBNP, rapid influenza test, rapid COVID-19 test, chest x-ray, CTA, EKG, interpretation with sinus tachycardia, with T wave flattening in 1, aVL, laterally. Without obvious signs of [place]. Pending cardiology read. Reviewed ER physician note, discussed with ER physician. Has been having progressive dyspnea, recently also with lower extremity edema. In ER tested positive for COVID-19 on rapid testing. Started on remdesivir, Decadron. Although I see the test results appears now changed to negative with a comment regarding previously positive, negative in ER. Will check COVID-19 PCR. In case of spurious result will not continue remdesivir. D-dimer noted mildly elevated 0.7. CT angiogram chest without PE. Follow-up D- dimer level. Lovenox for VTE prophylaxis. Complete troponin EKG series. Monitor on telemetry. (4) Hypertension: Reviewed blood pressures, better control, continue carvedilol, losartan, hydralazine, IV diuretic. Cardiac diet. Very hypertensive in ER, received hydralazine, labetalol. Qualifiers: Hypertension type: primary hypertension Qualified Code(s): I10 - Essential (primary) hypertension Plan DM2: Reviewed Accu-Cheks, continue Lantus, sliding scale insulin. Consistent carbohydrate diet. Goals of care discussion: In case of cardiopulmonary arrest would want resuscitation. In case could not make his own decisions names his brother Mack as surrogate decision maker. Attestations 2 Medical Necessity Statement*: Continue admission for assessment of management of decompensated CHF with new reduction in ejection fraction, COPD exacerbation. and High MDM includes amount and/or complexity of data reviewed/ordered [ resulted lab(s)/test(s), ordered lab(s)/test(s) and other healthcare professional discussion] as documented Diagnoses Heart failure with preserved ejection fraction I50.30 COPD exacerbation J44.1 Pneumonia due to COVID-19 virus U07.1; J12.82 Primary hypertension I10 Hypertension type: primary hypertension
[2023-07-30 21:09] LABS: Glucose Point of Care 282 mg/dL (70-110)
[2023-07-30] MEDS: atorvastatin 40 mg Tablet PO (21:15)
[2023-07-30] MEDS: enoxaparin 40 mg/0.4 mL Syringe SUBCUT (21:15)
[2023-07-31] VITALS (8 sets, daily range): BP systolic 144–153; BP diastolic 85–105; PULSE 79–104; RESP 14–20; TEMP 36.6–36.8; O2SAT 93–99
[2023-07-31 03:49] LABS: Basophils % 0.1 %; Lymphocytes # 1.1 10^3/uL (0.8-4.8); Lymphocytes % 5.7 %; Mean Corpuscular Hemoglobin 31.6 pg (27-33); Mean Corpuscular Volume 95.6 fl (82-101); Mean Platelet Volume 10.2 fL (7.4-10.4); Monocytes # 1.4 10^3/uL (0.2-0.9); Monocytes % 7.1 %; Neutrophils # 16.95 10^3/uL (1.8-7.7); Neutrophils % 86.6 %; Nucleated Red Blood Cells % 0 %; Platelet Count 329 10^3/cmm (157-399); Red Cell Distribution Width 13.4 % (12.1-15.1); White Blood Count 19.57 10^3/uL (3.29-11.43)
[2023-07-31 04:07] LABS: Alanine Aminotransferase 41 U/L (0-41); Albumin Level 3.4 g/dL (3.5-5.2); Alkaline Phosphatase 149 U/L (40-130); Anion Gap 14.1 (5-19); Aspartate Amino Transferase 26 U/L (0-40); Blood Urea Nitrogen 24 mg/dL (8-23); Calcium 9.2 mg/dL (8.5-10.5); Carbon Dioxide 28 mmol/L (22-29); Chloride 105 mmol/L (98-107); Creatinine Clr Calc Pharmacy 93.5583; Globulin 3.8 g/dL (1.3-4.6); Glomerular Filtration Rate 119.3 mL/min (90-130); Glucose 120 mg/dL (65-115); Osmolality Calculated 301 mOsm/kg (285-295); Potassium 4.1 mmol/L (3.5-5.1); Sodium 143 mmol/L (136-145); Total Bilirubin 0.4 mg/dL (0.15-1.2); Total Protein 7.2 g/dL (6.6-8.7)
[2023-07-31] MEDS: aspirin 81 mg EC Tablet PO (05:27)
[2023-07-31] MEDS: losartan 50 mg Tablet 100 MG PO (05:27)
[2023-07-31] MEDS: clopidogrel 75 mg Tablet PO (05:28)
[2023-07-31 06:40] LABS: Glucose Point of Care 277 mg/dL (70-110)
[2023-07-31] MEDS: insulin glargine 100 units/1 mL 25 UNIT SUBCUT (07:41)
[2023-07-31] MEDS: insulin lispro 100 unit/1 mL SUBCUT (07:41)
[2023-07-31] MEDS: hyDRALAzine 25 mg Tablet PO (07:41)
[2023-07-31] MEDS: bumetanide 0.25 mg/mL SDV 4 mL 2 MG IVP (07:41)
[2023-07-31] MEDS: carvedilol 6.25 mg Tablet PO (07:41)
[2023-07-31] MEDS: dexamethasone 10 mg/mL INJ 3 MG IVP (07:42)
[2023-07-31 11:38] LABS: Glucose Point of Care 100 mg/dL (70-110)
--- NOTE | 2023-07-31 13:15 | PM.DCS ---
Discharge Providers Date of Admission: 07/28/23 18:23 Date of Discharge: July 31, 2023 Attending Provider at Admission: Juan M Muñoz Attending Provider at Discharge: Juan M Muñoz Primary Care Provider: Dallas Kwan MD Diagnoses at Discharge Discharge Diagnosis (1) Heart failure with preserved ejection fraction: Status: Acute (2) COPD exacerbation: Status: Acute (3) Pneumonia due to COVID-19 virus: Status: Acute (4) Hypertension: Status: Acute Qualifiers: Hypertension type: primary hypertension Qualified Code(s): I10 - Essential (primary) hypertension Reason for Visit Reason for Visit: sob, cough Hospital Course Hospital Course Pleasant 58-year-old woman with history of HFpEF, CAD, former smoker, reported history of COPD, BJORN, other medical problems has been progressively getting more short of breath over the past week, 2 weeks ago he had noticed increasing swelling and had to increase his diuretic, this week he has been having dyspnea, cough. In ER he is afebrile, without leukocytosis, but with requirement for 3 L of oxygen, sinus tachycardia, tested positive for COVID-19. Chest x-ray without acute findings. NT proBNP 5865. Transaminitis, AST 58, ALT 53, alk phos 148. He was admitted for treatment of several respiratory conditions complicated by new oxygen requirement, previously not on oxygen. Initially tested positive for COVID-19 on rapid testing, started remdesivir, Decadron, and additional treatments for COPD exacerbation with breathing treatments, as well as treated with IV Lasix for decompensated congestive heart failure. Was very hypertensive on presentation, received hydralazine, labetalol, continued on carvedilol, hydralazine and losartan, cardiac diet. Underwent additional assessment by stress testing with history of coronary disease, decompensated CHF, with finding of small to medium sized area of prior infarct with minimal matias-infarct ischemia seen in RCA and LCx territories. As well as LV systolic function severely reduced with EF 30% severe global hypokinesis. Results were discussed with him. Concern for component of nonischemic cardiomyopathy. He had history of intermittent methamphetamine use which he is highly encouraged to avoid entirely and agrees that he will not go back to overusing it again, stating understanding of risks including to his heart. This was followed up with additional assessment by echocardiogram which showed an ejection fraction of 50%, mild diffuse hypokinesia of left ventricle, moderate LVH, grade 3 diastolic dysfunction. These results were discussed with him as well, in addition to the above will also benefit from continued optimization of hypertension control, is asked to measure blood pressures, record values and also follow-up with primary provider and cardiology for continued optimization. Continue to optimize diabetes control and other risk factors. Continues on BB, ARB. Consider Entresto. Consider Farxiga. With treatment of CHF, COPD exacerbation oxygenation has been gradually improving, and although initially qualified for home O2 yesterday today has been doing better, saturating 93% on room air, on brief ambulation does not appear to require oxygen, repeat home O2 evaluation is requested prior to discharge. Physical Exam Const: COMMON NORMALS: patient oriented x3 and alert GENERAL APPEARANCE: cooperative ORIENTATION/CONSCIOUSNESS: Yes awake HENMT: COMMON NORMALS: oropharynx normal Neck/C-Spine: COMMON NORMALS: no JVD Resp: AUSCULTATION: diminished lung sounds Cardio: COMMON NORMALS: no JVD, regular rhythm, S1 normal heart sound present, S2 normal heart sound present and No murmurs present (Cardio) RHYTHM: regular rhythm HEART SOUNDS: S1 normal heart sound present and S2 normal heart sound present GI: COMMON NORMALS: Normal to inspection, nondistended, normoactive bowel sounds present, Soft to palpation and non-tender PALPATION: Yes Soft to palpation Extremity: COMMON NORMALS: no joint enlargement GENERAL: No edema Neuro: COMMON NORMALS: patient oriented x3 and moves all extremities SENSORIUM/ORIENTATION: Yes alert Skin: COMMON NORMALS: no rashes or lesions noted GENERAL SKIN EXAM: no rashes or lesions noted OTHER: BL LE chronic stasis dermatitis. Discharge Data Studies Completed and Pending Completed Studies During Hospitalization Category Date Time Status CT angio chest PE protcl [id number] Stat Cat Scan 07/28/23 18:00 Completed Cardiac Stress Test MIBI [Sestamibi Stress Test Request Exams 07/30/23 09:00 Draft ] Routine XR chest 2V* [id number] Stat Exams 07/28/23 15:27 Completed NM margarita perf SPECT r/s* [id number] Routine Nuc Med 07/29/23 18:38 Completed CV. echo complete* [id number] Routine Ultrasound 07/30/23 14:11 Completed Radiology Impressions Chest X-Ray 07/28/23 15:27 IMPRESSION: No acute findings. Chest CTA 07/28/23 18:00 IMPRESSION: 1. No evidence of PE or acute aortic abnormality. 2. Posterior segment right upper lobe and bilateral lower lobe airspace opacities and ground-glass compatible with pneumonia. 3. Small bilateral pleural effusions. Laboratory Results WBC 19.57 10^3/uL (3.29-11.43) H 07/31/23 03:19 RBC 4.50 10^6/uL (3.85-5.65) 07/31/23 03:19 Hgb 14.20 g/dL (11.27-16.99) 07/31/23 03:19 Hct 43.0 % (37-53) 07/31/23 03:19 MCV 95.6 fl (82-101) 07/31/23 03:19 MCH 31.6 pg (27-33) 07/31/23 03:19 MCHC 33.0 g/dL (30-55) 07/31/23 03:19 RDW 13.4 % (12.1-15.1) 07/31/23 03:19 Plt Count 329 10^3/cmm (157-399) D 07/31/23 03:19 MPV 10.2 fL (7.4-10.4) 07/31/23 03:19 Neut % (Auto) 86.6 % 07/31/23 03:19 Lymph % (Auto) 5.7 % 07/31/23 03:19 [place] % (Auto) 7.1 % 07/31/23 03:19 Eos % (Auto) 0.0 % 07/31/23 03:19 Baso % (Auto) 0.1 % 07/31/23 03:19 Neut # (Auto) 16.95 10^3/uL (1.8-7.7) H 07/31/23 03:19 Lymph # (Auto) 1.1 10^3/uL (0.8-4.8) 07/31/23 03:19 [place] # (Auto) 1.4 10^3/uL (0.2-0.9) H 07/31/23 03:19 Eos # (Auto) 0.0 10^3/uL (0.0-0.8) 07/31/23 03:19 Baso # (Auto) 0.0 10^3/uL (0.0-0.1) 07/31/23 03:19 Nucleated RBC % (auto) 0 % 07/31/23 03:19 Nucleated RBCs # 0.0 /100WBC 07/31/23 03:19 D-Dimer 0.78 ug/mLFEU (0-0.59) H 07/29/23 03:48 Sodium 143 mmol/L (136-145) 07/31/23 03:19 Potassium 4.1 mmol/L (3.5-5.1) 07/31/23 03:19 Chloride 105 mmol/L (98-107) 07/31/23 03:19 Carbon Dioxide 28 mmol/L (22-29) 07/31/23 03:19 Anion Gap 14.1 (5-19) 07/31/23 03:19 BUN 24 mg/dL (8-23) H 07/31/23 03:19 Creatinine 0.8 mg/dL (0.7-1.2) 07/31/23 03:19 GFR Calculation 119.3 mL/min (90-130) 07/31/23 03:19 Glucose 120 mg/dL (65-115) H 07/31/23 03:19 POC Glucose 100 mg/dL (70-110) 07/31/23 11:15 Calculated Osmolality 301 mOsm/kg (285-295) H 07/31/23 03:19 Calcium 9.2 mg/dL (8.5-10.5) 07/31/23 03:19 Magnesium 1.8 mg/dL (1.7-2.3) 07/29/23 03:48 Total Bilirubin 0.4 mg/dL (0.15-1.2) 07/31/23 03:19 AST 26 U/L (0-40) 07/31/23 03:19 ALT 41 U/L (0-41) 07/31/23 03:19 Alkaline Phosphatase 149 U/L (40-130) H 07/31/23 03:19 Troponin T Baseline 29 ng/L (0-15) H 07/28/23 16:20 Troponin T 120 Minute 25.97 ng/L (0-15) H 07/28/23 18:24 Delta Troponin T -3.03 ABS# (0-10) L 07/28/23 18:24 Troponin T Hi Sens 6Hr 27.09 ng/L (0-15) H 07/28/23 22:25 Troponin T Hi Sens 6Hr Delta -1.91 ng/L (0-12) L 07/28/23 22:25 NT-Pro-B Natriuret Pep 5865 pg/mL (0-125) H 07/28/23 16:20 Total Protein 7.2 g/dL (6.6-8.7) 07/31/23 03:19 Albumin 3.4 g/dL (3.5-5.2) L 07/31/23 03:19 Globulin 3.8 g/dL (1.3-4.6) 07/31/23 03:19 Urine Color Yellow (Yellow) 07/28/23 18:35 Urine Appearance Clear (CLEAR) 07/28/23 18:35 Urine pH 5 (5-7) 07/28/23 18:35 Ur Specific [place] 1.015 (1.005-1.030) 07/28/23 18:35 Urine Protein 3+ (Negative) H 07/28/23 18:35 Urine Glucose (UA) 1+ (Normal) H 07/28/23 18:35 Urine Ketones Negative (Negative) 07/28/23 18:35 Urine Blood 3+ (Negative) H 07/28/23 18:35 Urine Nitrate Negative (Negative) 07/28/23 18:35 Urine Bilirubin Neg (Negative) 07/28/23 18:35 Urine Urobilinogen 1 mg/dL (Negative) H 07/28/23 18:35 Ur Leukocyte Esterase Negative (Negative) 07/28/23 18:35 Urine RBC 5-10 /hpf (0-2) H 07/28/23 18:35 Urine WBC 0-4 /hpf (0-5) H 07/28/23 18:35 Ur Squamous Epith Cells None /hpf (0-5) 07/28/23 18:35 Amorphous Sediment Not Reportable 07/28/23 18:35 Urine Bacteria Trace /hpf (NONE) 07/28/23 18:35 Urine Mucus 1+ /hpf 07/28/23 18:35 Coronavirus 229E (PCR) Not detected (NOT DETECT) 07/29/23 06:00 Influenza Type A Ag negative (Negative) 07/28/23 16:20 Influenza Type B Ag negative (Negative) 07/28/23 16:20 SARS-CoV-2 (PCR) Not detected (NOT DETECT) 07/29/23 06:00 SARS-CoV-2 Ag (Rapid) Negative (Negative) 07/28/23 16:20 Vitals Last Vital Signs Temp 97.9 F 07/31/23 11:10 Pulse 84 07/31/23 11:10 Resp 14 07/31/23 11:10 BP 144/90 07/31/23 11:10 Pulse Ox 93 07/31/23 11:10 O2 Del Method Room Air 07/31/23 11:10 O2 Flow Rate 2 07/31/23 09:49 Discharge Plan Discharge Patient Disposition: Home Condition: Stable Prescriptions: New prednisone 10 mg tablet 10 mg PO DAILY 2 Days Qty: 2 0RF Continued hydralazine 25 mg tablet 25 mg PO BID Qty: 120 3RF albuterol sulfate 90 mcg/actuation HFA aerosol inhaler 1 inh inhalation QID PRN (Reason: shortness of breath or wheezing) Qty: 6.7 0RF (DME) OneTouch Ultra Test Strip See Rx Instructions .ROUTE .MEDSUPPLY Qty: 100 6RF Rx Instructions: Measure 4 times per day (DME) lancets [OneTouch UltraSoft Lancets] Misc See Rx Instructions .ROUTE .MEDSUPPLY Qty: 100 5RF Rx Instructions: measure glucose 4 times per day (DME) blood-glucose meter [OneTouch Ultra2 Meter] Kit See Rx Instructions .Route Qty: 1 0RF Rx Instructions: use glucometer 4 times daily budesonide-formoterol [Symbicort] 80-4.5 mcg/actuation HFA aerosol inhaler 2 puff inhalation BID Qty: 10.2 2RF (DME) pen needle, diabetic [BD Ultra-Fine Mini Pen Needle] 31 gauge x 3/16 needle See Rx Instructions .Route Qty: 100 7RF Rx Instructions: 4 times daily with insulin insulin glargine [Lantus Solostar U-100 Insulin] 100 unit/mL (3 mL) insulin pen 25 unit SUBCUT BID 60 Days Qty: 30 3RF Lipitor 40 mg tablet 40 mg PO BEDTIME carvedilol 6.25 mg tablet 6.25 mg PO BID clopidogrel 75 mg tablet 75 mg PO QAM aspirin 81 mg tablet,delayed release (DR/EC) 81 mg PO QAM Klor-Con M20 20 mEq tablet,ER particles/crystals 20 meq PO QAM Rx Instructions: take with bumex bumetanide 1 mg tablet 1 mg PO QAM losartan 100 mg tablet 100 mg PO QAM Flonase Allergy Relief 50 mcg/actuation spray,suspension 2 spray intranasal DAILY PRN (Reason: Allergy Symptoms) Rx Instructions: administer into each nostril Novolog FlexPen U-100 Insulin 100 unit/mL (3 mL) insulin pen See Rx Instructions .ROUTE .COMPLEX Rx Instructions: sliding scale tid Discharge Orders: Discharge Order (Routine); Ordered 07/31/23 Ordered By: Juan M Muñoz Referrals: Susie Samson FNP [Nurse Practitioner] - 1 week (Please call Susie Samson's Office on Wednesday at [phone] to schedule a follow up appointment for 1 week. The office has your information and will be trying to call you also to schedule an appointment. Thank you.) Dallas Kwan MD [Primary Care Provider] - 4-7 days (Please call Dr. Kwan's Office on Wednesday at [phone] to schedule a follow up appointment for 4-7 days. Thank you.) Discharge Diet: Cardiac and Diabetic Discharge Activity: Increase activity as tolerated Patient Instructions: Prednisone (By mouth) (predniSONE Intensol, Prednicot, Deltasone, Bella), Heart Failure (DC), CHF Stoplight Activity Restrictions/Additional Instructions: Please follow-up with your primary doctor as well as with cardiology for reassessment after congestive heart failure episode. Please discuss finding of grade 3 out of 4 diastolic dysfunction seen on echocardiogram with impaired heart relaxation. Please continue to optimize control of your blood pressure to avoid further worsening of diastolic dysfunction, and avoid any recreational substances as discussed that may put your heart at risk. Follow-up with your primary doctor also for reassessment of recovery after COPD exacerbation. Complete brief prednisone course. Continue to monitor and treat diabetes. Return to the hospital in case of any worsening or new concerning symptoms. Discharge Attestations Time Spent in Discharge Care*: greater than 30 min Quality Metrics Clinical Quality Measures [ No reported AMI, CVA or VTE this stay] Coding Level of Care Code 38489 Total time (in minutes) for Discharge: 40 Diagnoses Heart failure with preserved ejection fraction I50.30 COPD exacerbation J44.1 Pneumonia due to COVID-19 virus U07.1; J12.82 Primary hypertension I10 Hypertension type: primary hypertension
--- NOTE | 2023-07-31 14:37 | PC.NURSE ---
Patient walked in the girard for 6 minutes on room air and oxygen saturation remained above 96%. Patient did not want to stay for respiratory to repeat home oxygen saturation. Patient was discharged with brother and all belongings.
== END 2023-07-31 14:44 | disposition home or self-care (01) | DRG 177 ==
LOC: ER 17:30 → CSU 18:24
PROVIDERS: Emergency Medicine; Admitting Provider Internal Medicine; Emergency Provider Family Medicine; PCP Family Medicine; Visit Provider Internal Medicine
DX: U07.1 COVID-19 (principal); J12.82 Pneumonia due to coronavirus disease 2019; J44.0 Chronic obstructive pulmonary disease with (acute) lower respiratory infection; J44.1 Chronic obstructive pulmonary disease with (acute) exacerbation; I50.32 Chronic diastolic (congestive) heart failure; I11.0 Hypertensive heart disease with heart failure; E11.9 Type 2 diabetes mellitus without complications; I25.10 Atherosclerotic heart disease of native coronary artery without angina pectoris; Z79.02 Long term (current) use of antithrombotics/antiplatelets; Z79.82 Long term (current) use of aspirin; Z79.4 Long term (current) use of insulin; Z87.891 Personal history of nicotine dependence; F15.90 Other stimulant use, unspecified, uncomplicated
CPT/HCPCS: 36415; 36416; 71046; 71275; 78452; 80053; 81001; 81015; 82962; 83735; 83880; 84484; 85025; 85378; 87426; 87635; 87804; 93005; 93017; 93306; 94664; 94760; 96372; 96374; 96375; 96376; 99285; A9500; J0248; J0360; J1100; J1650; J1815; J1940; J2785; J3475; J3490; Q9967

== ENCOUNTER → 2023-08-17 14:59 | Outpatient (BNVA) | payer MEDICAID, SELFPAY | PROVIDERS: PCP Family Medicine; Visit Provider Nurse Practitioner Family | DX: I10 Essential (primary) hypertension (principal); I50.31 Acute diastolic (congestive) heart failure; Z09 Encounter for follow-up examination after completed treatment for conditions other than malignant neoplasm; I50.32 Chronic diastolic (congestive) heart failure | CPT/HCPCS: 36415; 80048; 83880 ==

== ENCOUNTER → 2024-04-25 08:53 | Outpatient (BNVA) | payer MEDICAID, SELFPAY | PROVIDERS: PCP Family Medicine; Visit Provider Family Medicine | DX: E11.9 Type 2 diabetes mellitus without complications (principal); J44.1 Chronic obstructive pulmonary disease with (acute) exacerbation; H91.92 Unspecified hearing loss, left ear; H90.3 Sensorineural hearing loss, bilateral; I50.32 Chronic diastolic (congestive) heart failure; I10 Essential (primary) hypertension; I25.10 Atherosclerotic heart disease of native coronary artery without angina pectoris; J44.9 Chronic obstructive pulmonary disease, unspecified | CPT/HCPCS: 80053; 80061; 83036; 85025 ==

== ENCOUNTER 2024-08-01 21:29 | Inpatient (IN) | payer MEDICAID, SELFPAY ==
[2024-08-01 21:32] VITALS: BP 192/114; PULSE 122; RESP 26; TEMP 36.9; O2SAT 99; BMI 29.5
--- NOTE | 2024-08-01 21:40 | ECG_ITS ---
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 Measurements Intervals [place] Rate: 125 P: 67 AL: 142 QRS: 93 QRSD: 93 T: 71 QT: 393 QTc: 569 Interpretive Statements SINUS TACHYCARDIA BORDERLINE RIGHT AXIS DEVIATION [QRS AXIS > 90] NONSPECIFIC T-WAVE ABNORMALITY Compared to ECG 07/28/2023 23:01:34 T-wave abnormality now present Electronically Signed On 08-05-2024 18:25:27 CDT by Jim Fenton M.D. [email or web address]
--- NOTE | 2024-08-01 21:47 | XRR_ITS ---
PROCEDURE INFORMATION: Exam: XR Chest Exam date and time: 08/01/2024 9:49 PM Age: 59 years old Clinical indication: Pain; Chest pressure; Additional info: Chest pain TECHNIQUE: Imaging protocol: Radiologic exam of the chest. Views: 1 view. COMPARISON: CT angio chest PE protcl [id number] 07/28/2023 6:11 PM FINDINGS: Lungs: Mild pulmonary venous distension. Pleural spaces: No pleural effusion. No pneumothorax. Heart/Mediastinum: Moderate enlargement of the cardiac silhouette Vasculature: Distended azygos arch. Bones/joints: Age appropriate. XR/XR chest 1V portable [id number] IMPRESSION: Findings are concerning for right heart failure. Clear lungs.
--- NOTE | 2024-08-01 21:53 | W.ED.CHESTPA ---
HPI - Chest Pain General: Chief Complaint: Chest Pain Stated Complaint: Chest Pains\SOB Time Seen by Provider: 08/01/24 21:46 History of Present Illness: 59-year-old man with a history of tobacco use, COPD, congestive heart failure, coronary artery disease, hepatitis C, hypertension, diabetes and methamphetamine abuse who presents to the emergency room with pleuritic chest pain and shortness of breath. He is hypertensive and tachycardic. He says he is had a cough. No increased lower extremity swelling. Related Data Home Medications ?Medication ?Instructions ?Recorded ?Confirmed fluticasone propionate 50 2 spray intranasal DAILY PRN 07/28/23 07/24/24 mcg/actuation nasal Allergy Symptoms spray,suspension (Flonase Allergy Relief) insulin aspart U-100 100 unit/mL See Rx Instructions .Route .COMPLEX 07/28/23 07/24/24 (3 mL) subcutaneous pen (Novolog FlexPen U-100 Insulin aspart) Previous Rx's ?Medication ?Instructions ?Recorded blood sugar diagnostic (OneTouch #100 ea 06/25/22 Ultra Test strips) blood-glucose meter (OneTouch #1 ea 06/25/22 Ultra2 Meter kit) lancets (OneTouch UltraSoft #100 ea 06/25/22 Lancets) pen needle, diabetic 31 gauge x #100 ea 06/30/22 3/ (BD Ultra-Fine Mini Pen Needle) albuterol sulfate 90 mcg/actuation 1 inh inhalation QID PRN shortness 06/07/23 aerosol inhaler of breath or wheezing #6.7 grams bumetanide 1 mg tablet See Rx Instructions .Route 02/04/24 .COMPLEX #60 tabs potassium chloride 20 mEq See Rx Instructions .Route 02/04/24 tablet,extended release(part/cryst) .COMPLEX #60 tabs atorvastatin 40 mg tablet (Lipitor) 40 mg PO BEDTIME #90 tabs 02/06/24 losartan 100 mg tablet 100 mg PO QAM #90 tabs 02/06/24 carvedilol 12.5 mg tablet 12.5 mg PO BID #180 tabs 03/03/24 benzonatate 200 mg capsule 200 mg PO BID PRN cough #30 caps 04/25/24 insulin glargine 100 unit/mL (3 28 unit (0.28 mL) SUBCUT BID 60 12/27/24 mL) subcutaneous pen (Lantus days #33.6 mL Solostar U-100 Insulin) hydralazine 25 mg tablet 25 mg PO TID #270 tabs 05/24/24 aspirin 81 mg tablet,delayed 81 mg PO QAM #90 tabs 06/06/24 release clopidogrel 75 mg tablet 75 mg PO QAM #90 tabs 06/06/24 budesonide-formoterol HFA 80 2 puff inhalation BID #10.2 grams 07/28/24 mcg-4.5 mcg/actuation aerosol inhaler (Symbicort) Allergies Allergy/AdvReac Type Severity Reaction Status Date / Time No Known Allergies Allergy Verified 07/24/24 11:36 Review of Systems Narrative: Constitutional symptoms: Negative except as documented in HPI. Skin symptoms: Negative except as documented in HPI. Eye symptoms: Negative except as documented in HPI. ENMT symptoms: Negative except as documented in HPI. Respiratory symptoms: Negative except as documented in HPI. Cardiovascular symptoms: Negative except as documented in HPI. Gastrointestinal symptoms: Negative except as documented in HPI. Genitourinary symptoms: Negative except as documented in HPI. Musculoskeletal symptoms: Negative except as documented in HPI. Neurologic symptoms: Negative except as documented in HPI. Psychiatric symptoms: Negative except as documented in HPI. Endocrine symptoms: Negative except as documented in HPI. PFSH ED PFSH: Medical History (Updated 08/02/24 @ 02:31 by Sheri Ballard MD) Tobacco abuse counseling Tobacco use disorder, moderate, dependence COPD (chronic obstructive pulmonary disease) Heart failure with preserved ejection fraction Chest pain CHF (congestive heart failure) Atherosclerosis of [place] coronary artery without angina pectoris BJORN (iron deficiency anemia) Hepatitis C Congestive heart failure 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 Diabetic peripheral neuropathy associated with type 2 diabetes mellitus HTN (hypertension) Orthopedic hardware present Non-healing wound of left lower extremity Open tibial fracture Smoking Methamphetamine use Diabetes Surgical History History of surgery on lower extremity Family History Other Crohn's disease Diabetes Hyperlipidemia Hypertension Denies family history of CAD (coronary artery disease) Clotting disorder Dementia Psychiatric illness Chronic kidney disease (CKD) Anesthesia complication Bleeding disorder Lung disease Cancer Stroke Social History Smoking and tobacco/nicotine status: current some day tobacco/nicotine user cigarettes [ Other cigarette details: quit 2018. 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 Skin: Warm, dry. Head: Normocephalic, atraumatic. Neck: Supple, trachea midline. Eye: Extraocular movements are intact. Ears, nose, mouth and throat: Oral mucosa moist. Cardiovascular: Regular rate and rhythm, Normal peripheral perfusion. Respiratory: coarse, scattered wheeze, mild increased wob. tachypnea, breath sounds are equal, Symmetrical chest wall expansion. Gastrointestinal: Soft, Nontender, Non distended, Normal bowel sounds. Musculoskeletal: Normal ROM, no deformity. Neurological: Alert and oriented, No focal neurological deficit observed. Psychiatric: Cooperative, appropriate mood & affect. Course Vital Signs: Vital signs: Vital Signs Temperature 98.4 F 08/01/24 21:32 Pulse Rate 116 H 08/02/24 00:30 Respiratory Rate 13 08/02/24 00:30 Blood Pressure 107/60 08/02/24 00:30 Pulse Oximetry 99 08/02/24 00:30 Oxygen Delivery Me thod Nasal Cannula 08/02/24 00:30 Oxygen Flow Rate 4 08/02/24 00:30 MDM - Chest Pain Medical Decision Making Differential diagnosis for patient with shortness of breath and chest pain includes but is not limited to and based on the above HPI, review of systems and physical exam: Pneumonia. Bronchitis. Asthma or COPD with acute exacerbation. Acute coronary syndrome / OH. Pulmonary embolism. Anxiety. Congestive heart failure. Viral infections including influenza and Covid-19. Atrial fibrillation. Anxiety. Pleural effusion. Pneumothorax. Orders placed to evaluate differential diagnosis based on the above differential, HPI and physical exam EKG: Time 2139. Rate 125 sinus tachycardia, No ST-T changes, no ectopy, normal OH & QRS intervals, This was reviewed and interpreted by myself the ER physician at 2144 Repeat EKG: Time 1:02 AM. Rate 115. Sinus tachycardia, No ST-T changes, no ectopy, normal OH & QRS intervals, This was reviewed and interpreted by myself the ER physician at 1:05 AM. Heart rate has decreased slightly to 115 from 125. Otherwise no acute changes from EKG done previously today. Chest x-ray: Stable cardiomegaly. No acute process. No infiltrate. No pneumothorax. This was reviewed and interpreted by myself the emergency room physician. I also reviewed the radiology report. Lab Review: Laboratory results were reviewed and interpreted by myself the emergency room physician. No leukocytosis. No anemia. BUN and creatinine are 26 and 1.2. Potassium slightly elevated at 5.2. proBNP is extremely elevated over his baseline. He is normally around 2-6000 but is 32,000 today. Liver enzymes are quite elevated as well at 1200/1100. Initial troponin elevated at 102 CT of the chest with PE protocol: Extensive groundglass and alveolar opacities noted throughout both lungs most consistent with a multifocal pneumonia. This could also be a pneumonitis from flu. CT of the abdomen pelvis with contrast: Gallbladder has a somewhat thickened wall but no signs of obstruction. Ultrasound was recommended which has been done. This was reviewed and interpreted by myself the emergency room physician. I also reviewed the radiology report. Ultrasound of the gallbladder: Gallbladder wall thickening likely related to hepatic congestion from cardiac dysfunction. No gallstones or acute cholecystitis. This was reviewed and interpreted by myself the emergency room physician. I also reviewed the radiology report. I reviewed the patient's medical record. history of tobacco use, COPD, congestive heart failure, coronary artery disease, hepatitis C, hypertension, diabetes and methamphetamine abuse Reexamination: Patient currently requiring 4 L. No increased work of breathing. Heart rate is improved somewhat. Patient was very hypertensive initially. Now blood pressure is a bit soft. Patient does not have a positive Dempsey sign. Consultation: I spoke with Dr. Carlos who agrees to admission. Assessment and plan: Influenza A Hypoxemic respiratory failure Acute exacerbation of congestive heart failure Pneumonia/influenza pneumonitis Possible sepsis Transaminitis (I suspect this is a hepatic cardio syndrome) -I discussed the patient with the hospitalist on-call who is admitting the patient. - Discussed findings and plan with patient. Answered any questions. - All laboratory values were reviewed and interpreted personally by myself, the ER physician - All imaging was reviewed and interpreted personally by myself, the ER physician. - Evaluation and treatment of this problem were appropriate in the emergency setting Critical care -I spent a total of >35 minutes of critical care time managing the patient, independent of any other practitioner. -The time involved in the performance of separately reportable procedures was not counted towards critical care time. Lab Data 08/01/24 23:04 08/01/24 23:04 Radiology Impressions Chest X-Ray 08/01/24 21:47 IMPRESSION: Findings are concerning for right heart failure. Clear lungs. Chest CTA 08/01/24 22:39 IMPRESSION: 1. Extensive ground-glass and alveolar opacity noted throughout both lungs with associated bronchial wall thickening and multifocal segmental bronchial occlusions. Findings are most compelling for multilobar pneumonia.. 2. No findings of acute pulmonary embolism. 3. Aortic valve leaflet calcifications. Correlate with any clinical findings of aortic stenosis. The aorta is normal in caliber. IMPRESSION: There is gallbladder wall thickening with wall thickening and equivocal pericholecystic fluid. No high density gallstones or biliary tree dilation. The gallbladder wall thickening could reflect acute acalculous cholecystitis, but given the lack of inflammatory change, could be passive in the setting of liver disease/cirrhosis. Consider ultrasound for further evaluation if clinical scenario is unresolved. Gallbladder Ultrasound 08/02/24 01:18 IMPRESSION: Gallbladder wall thickening likely related to hepatic congestion from cardiac dysfunction. No gallstones or evidence of acute cholecystitis. Laboratory Results WBC 9.79 10^3/uL (3.29-11.43) 08/01/24 23:04 RBC 4.54 10^6/uL (3.85-5.65) 08/01/24 23:04 Hgb 14.40 g/dL (11.27-16.99) 08/01/24 23:04 Hct 44.3 % (37-53) 08/01/24 23:04 MCV 97.6 fl (82-101) 08/01/24 23:04 MCH 31.7 pg (27-33) 08/01/24 23:04 MCHC 32.5 g/dL (30-55) 08/01/24 23:04 RDW 12.6 % (12.1-15.1) 08/01/24 23:04 Plt Count 157 10^3/cmm (157-399) 08/01/24 23:04 MPV 11.5 fL (7.4-10.4) H 08/01/24 23:04 Neut % (Auto) 91.7 % 08/01/24 23:04 Lymph % (Auto) 2.8 % 08/01/24 23:04 Forrest % (Auto) 4.9 % 08/01/24 23:04 Eos % (Auto) 0.0 % 08/01/24 23:04 Baso % (Auto) 0.2 % 08/01/24 23:04 Neut # (Auto) 8.98 10^3/uL (1.8-7.7) H 08/01/24 23:04 Lymph # (Auto) 0.3 10^3/uL (0.8-4.8) L 08/01/24 23:04 Forrest # (Auto) 0.5 10^3/uL (0.2-0.9) 08/01/24 23:04 Eos # (Auto) 0.0 10^3/uL (0.0-0.8) 08/01/24 23:04 Baso # (Auto) 0.0 10^3/uL (0.0-0.1) 08/01/24 23:04 Nucleated RBC % (auto) 0 % 08/01/24 23:04 Nucleated RBCs # 0.0 /100WBC 08/01/24 23:04 PT 15.50 SECONDS (12.1-14.9) H 08/01/24 23:04 INR 1.15 (0.8-1.2) 08/01/24 23:04 APTT 31.3 SECONDS (23.9-36.7) 08/01/24 23:04 Specimen Type Arterial 08/01/24 22:01 Sample Site Radial, right 08/01/24 22:01 ABG pH 7.38 (7.35-7.45) 08/01/24 22:01 ABG pCO2 35.8 mmHg (35-45) 08/01/24 22:01 ABG pO2 49.6 mmHg (80.0-100.0) L 08/01/24 22:01 ABG HCO3 21.2 mmol/L (22-26) L 08/01/24 22:01 ABG O2 Saturation 81.9 08/01/24 22:01 ABG Base Excess -3.4 mmol/L (-2.0-2.0) L 08/01/24 22:01 Frandy Test Pos 08/01/24 22:01 A-a O2 Gradient 7.0 mmHg (5-10) 08/01/24 22:01 Hematocrit 42.3 % (42-52) 08/01/24 22:01 Hgb O2 Saturation 80.8 % (95-100) L 08/01/24 22:01 Carboxyhemoglobin 1.1 %THgb (0.4-20.1) 08/01/24 22:01 Methemoglobin 0.2 % (0.4-1.5) L 08/01/24 22:01 Total Hemoglobin 13.8 g/dL (14-18) L 08/01/24 22:01 Sodium 137.0 mmol/L (131-143) 08/01/24 22:01 Potassium 4.3 mmol/L (3.5-5.0) 08/01/24 22:01 Glucose 186.0 mg/dL (70-115) H 08/01/24 22:01 Ionized Calcium 1.1 mmol/L (1.1-1.4) 08/01/24 22:01 O2 Delivery Device Room air 08/01/24 22:01 Hot Strip Finisher ID [email or web address] 08/01/24 22:01 Sodium 135 mmol/L (136-145) L 08/01/24 23:04 Potassium 5.2 mmol/L (3.5-5.1) H 08/01/24 23:04 Chloride 97 mmol/L (98-107) L 08/01/24 23:04 Carbon Dioxide 21 mmol/L (22-29) L 08/01/24 23:04 Anion Gap 22.2 (5-19) H 08/01/24 23:04 BUN 26 mg/dL (8-23) H 08/01/24 23:04 Creatinine 1.2 mg/dL (0.7-1.2) 08/01/24 23:04 GFR Calculation 74.5 mL/min (90-130) L 08/01/24 23:04 Glucose 179 mg/dL (65-115) H 08/01/24 23:04 Calculated Osmolality 289 mOsm/kg (285-295) 08/01/24 23:04 Lactic Acid 4.5 mmol/L (0.5-2.2) H* 08/01/24 23:04 Lactic Acid (Sepsis) 2.2 mmol/L (0.5-2.2) 08/02/24 02:04 Calcium 9.1 mg/dL (8.5-10.5) 08/01/24 23:04 Total Bilirubin 0.8 mg/dL (0.15-1.2) 08/01/24 23:04 AST 1234 U/L (0-40) H 08/01/24 23:04 ALT 1106 U/L (0-41) H 08/01/24 23:04 Alkaline Phosphatase 154 U/L (40-130) H 08/01/24 23:04 Troponin T Baseline 102 ng/L (0-15) H* 08/01/24 23:04 Troponin T 120 Minute 112.3 ng/L (0-15) H 08/02/24 02:04 Delta Troponin T 10.3 ABS# (0-10) H* 08/02/24 02:04 C-Reactive Protein 55.4 mg/L (0.0-4.9) H 08/01/24 23:04 NT-Pro-B Natriuret Pep 74444 pg/mL (0-125) H 08/01/24 23:04 Total Protein 8.0 g/dL (6.6-8.7) 08/01/24 23:04 Albumin 4.3 g/dL (3.5-5.2) 08/01/24 23:04 Globulin 3.7 g/dL (1.3-4.6) 08/01/24 23:04 Hepatitis A IgM Ab Non-reactive (Nonreactive) 08/01/24 23:04 Hep Bs Antigen Non-reactive (Nonreactive) 08/01/24 23:04 Hep B Core IgM Ab Non-reactive (Nonreactive) 08/01/24 23:04 Hepatitis C Antibody Reactive (Nonreactive) H 08/01/24 23:04 Influenza A (PCR) Positive (Negative) 08/01/24 23:25 Influenza Type B (PCR) Negative (Negative) 08/01/24 23:25 RSV (PCR) Negative (Negative) 08/01/24 23:25 SARS-CoV-2 (PCR) Negative (Negative) 08/01/24 23:25 All radiology interpretation(s) finalized by discharge Discharge Plan Discharge Patient Disposition: Admitted As Inpatient Clinical Impression: Influenza A, Transaminitis, Chronic hepatitis C, Acute exacerbation of congestive heart failure, COPD with acute exacerbation, Acute hypoxemic respiratory failure Condition: Stable Coding Level of Care Code ED Certified Meeting Professional for Yannick Duenas
[2024-08-01 22:06] VITALS: BP 141/70; PULSE 60; RESP 22; O2SAT 98
[2024-08-01 22:11] LABS: ABG PCO2 35.8 mmHg (35-45); ABG PH Result 7.38 (7.35-7.45); Arterial Blood Gas Hematocrit 42.3 % (42-52); Base Excess ABG -3.4 mmol/L (-2.0-2.0); Blood Gas Allen Test Pos; Blood Gas Sample Site Radial, right; Blood Gas Sample Type Arterial; Carboxyhemoglobin 1.1 %THgb (0.4-20.1); HCO3 ABG 21.2 mmol/L (22-26); HGB O2 Sat 80.8 % (95-100); Ionized Calcium Level - ABG 1.1 mmol/L (1.1-1.4); Methemoglobin 0.2 % (0.4-1.5); Oxygen Device ROOM AIR; Oxygen Saturation ABG 81.9; PO2 ABG 49.6 mmHg (80.0-100.0); Potassium Level - ABG 4.3 mmol/L (3.5-5.0); Total Hemoglobin 13.8 g/dL (14-18)
[2024-08-01 22:15] VITALS: PULSE 120; RESP 26; O2SAT 90
[2024-08-01] MEDS: ipratropium-albuterol 3 mL Neb INHALATION (22:15)
[2024-08-01] MEDS: albuterol 2.5 mg/3 mL Neb INHALATION (22:15)
--- NOTE | 2024-08-01 22:39 | CTR_ITS ---
NOTE: Report was unsigned for reason: Order was edited. Original Signature date and time was: 08/02/24 @ 0028 PROCEDURE INFORMATION: Exam: CTA Chest With Contrast Exam date and time: 08/02/2024 12:28 AM Age: 59 years old Clinical indication: Abdominal tenderness; Shortness of breath; Additional info: Hypoxemia, tachycardia TECHNIQUE: Imaging protocol: Computed tomographic angiography of the chest with contrast. Exam focused on the arteries. 3D rendering (Not supervised by radiologist): MIP and/or 3D reconstructed images were created by the technologist. Radiation optimization: All CT scans at this facility use at least one of these dose optimization techniques: automated exposure control; mA and/or kV adjustment per patient size (includes targeted exams where dose is matched to clinical indication); or iterative reconstruction. Contrast material: OMNI 350; Contrast volume: 100 ml; Contrast route: INTRAVENOUS (IV); COMPARISON: CT angio chest PE protcl [id number] 07/28/2023 6:11 PM RADIATION DOSE METRICS: Total DLP (mGy-cm): 1437.57 FINDINGS: Pulmonary arteries: Normal. No pulmonary emboli. Aorta: Normal caliber thoracic aorta. There is insufficient contrast in the aortic lumen to exclude acute dissection or penetrating ulcer. Thyroid: Homogeneous thyroid. Lungs: Abnormal lung parenchyma is characterized by a central ground-glass and alveolar opacities. There is mild bronchial wall thickening. Multifocal endobronchial debris noted with several sites of segmental bronchial occlusion. Pleural spaces: Unremarkable. No pneumothorax. No pleural effusion. Heart: Borderline cardiac enlargement. Aortic valve leaflet calcification. Coronary arteries: Moderate coronary artery calcification. Lymph nodes: No mediastinal, axillary, or supraclavicular adenopathy. Diaphragm: Tiny sliding hiatal hernia. Bones/joints: Unremarkable. No acute fracture. Soft tissues: Unremarkable. PROCEDURE INFORMATION: Exam: CT Abdomen And Pelvis With Contrast Exam date and time: 08/02/2024 12:28 AM Age: 59 years old Clinical indication: Abdominal tenderness; Shortness of breath; Additional info: Hypoxemia, tachycardia TECHNIQUE: Imaging protocol: Computed tomography of the abdomen and pelvis with contrast. Radiation optimization: All CT scans at this facility use at least one of these dose optimization techniques: automated exposure control; mA and/or kV adjustment per patient size (includes targeted exams where dose is matched to clinical indication); or iterative reconstruction. Contrast material: OMNI 350; Contrast volume: 100 ml; Contrast route: INTRAVENOUS (IV); COMPARISON: CT angio chest PE protcl [id number] 07/28/2023 6:11 PM RADIATION DOSE METRICS: Total DLP (mGy-cm): 0.01 FINDINGS: Liver: Liver morphology suggests early cirrhosis with prominence of the left hepatic lobe and early recanalization of the umbilical vein. Gallbladder and biliary ducts: Gallbladder is contracted and demonstrates mural thickening. Possible pericholecystic fluid. No high density gallstones. No biliary tree dilation. Pancreas: No pancreatic edema or visible mass. Spleen: Normal. No splenomegaly. Adrenal glands: Normal configuration. Kidneys and ureters: Kidneys enhance symmetrically and demonstrate no evidence of mass, calculus, obstruction, or inflammation. Stomach and bowel: Unremarkable. No obstruction. No mural thickening. Appendix: Normal appendix is confirmed. Intraperitoneal space: There is trace pelvic free fluid, etiology unclear. No free air. Vasculature: Mild arterial calcification. Normal caliber abdominal aorta. No portal venous gas. Lymph nodes: No enlarged lymph nodes. Urinary bladder: Unremarkable as visualized. Reproductive: Physiologic appearance for age. Bones/joints: Lower lumbar degenerative disc disease. No acute fracture or destructive lesion. Soft tissues: No perineal/perianal abscess or inflammation. [facility] CT/CT angio chest w abd pel w con IMPRESSION: 1. Extensive ground-glass and alveolar opacity noted throughout both lungs with associated bronchial wall thickening and multifocal segmental bronchial occlusions. Findings are most compelling for multilobar pneumonia.. 2. No findings of acute pulmonary embolism. 3. Aortic valve leaflet calcifications. Correlate with any clinical findings of aortic stenosis. The aorta is normal in caliber. IMPRESSION: There is gallbladder wall thickening with wall thickening and equivocal pericholecystic fluid. No high density gallstones or biliary tree dilation. The gallbladder wall thickening could reflect acute acalculous cholecystitis, but given the lack of inflammatory change, could be passive in the setting of liver disease/cirrhosis. Consider ultrasound for further evaluation if clinical scenario is unresolved.
[2024-08-01 23:06] VITALS: BP 142/80; PULSE 75; RESP 16; O2SAT 97
[2024-08-01 23:27] LABS: Basophils % 0.2 %; Hematocrit 44.3 % (37-53); Lymphocytes # 0.3 10^3/uL (0.8-4.8); Lymphocytes % 2.8 %; Mean Corpuscular HGB Conc 32.5 g/dL (30-55); Mean Corpuscular Hemoglobin 31.7 pg (27-33); Mean Corpuscular Volume 97.6 fl (82-101); Mean Platelet Volume 11.5 fL (7.4-10.4); Monocytes # 0.5 10^3/uL (0.2-0.9); Monocytes % 4.9 %; Neutrophils # 8.98 10^3/uL (1.8-7.7); Neutrophils % 91.7 %; Nucleated Red Blood Cells % 0 %; Platelet Count 157 10^3/cmm (157-399); Red Blood Count 4.54 10^6/uL (3.85-5.65); Red Cell Distribution Width 12.6 % (12.1-15.1); White Blood Count 9.79 10^3/uL (3.29-11.43)
[2024-08-01] MEDS: methylPREDNISolone sod succ 125 mg/2 mL INJ IVP (23:32)
[2024-08-01] MEDS: morphine 4 mg/mL SDV 1 mL IVP (23:32)
[2024-08-01] MEDS: ondansetron 2 mg/ML SDV 2 mL 4 MG IVP (23:32)
[2024-08-01 23:47] VITALS: PULSE 118; RESP 24; O2SAT 98
[2024-08-01 23:55] LABS: Albumin Level 4.3 g/dL (3.5-5.2); Alkaline Phosphatase 154 U/L (40-130); Anion Gap 22.2 (5-19); Blood Urea Nitrogen 26 mg/dL (8-23); C Reactive Protein 55.4 mg/L (0.0-4.9); Calcium 9.1 mg/dL (8.5-10.5); Carbon Dioxide 21 mmol/L (22-29); Chloride 97 mmol/L (98-107); Creatinine Clr Calc Pharmacy 61.0121; Globulin 3.7 g/dL (1.3-4.6); Glomerular Filtration Rate 74.5 mL/min (90-130); Glucose 179 mg/dL (65-115); Osmolality Calculated 289 mOsm/kg (285-295); Potassium 5.2 mmol/L (3.5-5.1); Sodium 135 mmol/L (136-145); Total Bilirubin 0.8 mg/dL (0.15-1.2)
[2024-08-01 23:56] LABS: Troponin(5th) Baseline 102 ng/L (0-15)
[2024-08-01 23:57] LABS: Lactic Sepsis W/Reflex 4.5 mmol/L (0.5-2.2)
[2024-08-02] VITALS (105 sets, daily range): BP systolic 94–177; BP diastolic 60–122; PULSE 88–119; RESP 13–28; TEMP 36.6–36.9; O2SAT 89–100
[2024-08-02 00:07] LABS: NT Pro B Type Natriuretic Pept 32187 pg/mL (0-125)
[2024-08-02 00:18] LABS: Influenza A POSITIVE (Negative); Influenza B NEGATIVE (Negative); Respiratory Syncytial Virus Ce NEGATIVE (Negative); SARS-CoV-2 PCR NEGATIVE (Negative)
[2024-08-02 00:41] LABS: Aspartate Amino Transferase 1234 U/L (0-40)
[2024-08-02 00:42] LABS: Alanine Aminotransferase 1106 U/L (0-41)
[2024-08-02] MEDS: iohexol 350 mg/mL 500 mL Btl (per mL) IV (00:51)
[2024-08-02] MEDS: FUROsemide 10 mg/mL SDV 10mL 80 MG IVP (00:51)
[2024-08-02] MEDS: meropenem 500 mg SDV IVP (01:01)
[2024-08-02] MEDS: linezolid premix 600 MG/300 ML PREMIX 300 MG IV (01:01)
[2024-08-02 01:06] LABS: Reflex Lactate Order REFLEX LACTIC ORDERD
--- NOTE | 2024-08-02 01:18 | USR_ITS ---
PROCEDURE INFORMATION: Exam: US Abdomen, Limited; Right Upper Quadrant Exam date and time: 08/02/2024 1:54 AM Age: 59 years old Clinical indication: Abdominal pain; Generalized; Methamphetamine abuser, history of tobacco addiction, copd, chf, cad, hepatitis c, HTN, dm; Additional info: Right upper quadrant pain, concern for cholecystitis TECHNIQUE: Imaging protocol: Real time ultrasound of the abdomen with image documentation. Limited exam focused on the right upper quadrant. COMPARISON: CT angio chest PE protcl [id number] 08/02/2024 12:28 AM FINDINGS: Liver: The liver is heterogenous in echotexture. No liver mass. Gallbladder: There is diffuse gallbladder wall thickening/edema. No gallstones. Biliary ducts: The common bile duct measures 3 mm in diameter. No intrahepatic biliary ductal dilatation. Pancreas: The visualized portions of the pancreas are unremarkable. Right kidney: The right kidney measures 11.5 cm in length and is free of hydronephrosis. Aorta: The visualized portions of the abdominal aorta is free of aneurysm. The Inferior vena cava: The visualized portions of the upper inferior vena cava is mildly dilated suggesting right heart dysfunction. US/US gall bladder [id number] IMPRESSION: Gallbladder wall thickening likely related to hepatic congestion from cardiac dysfunction. No gallstones or evidence of acute cholecystitis.
[2024-08-02 02:19] LABS: Hepatitis A Antibody IgM Non-Reactive (Nonreactive); Hepatitis B Core IgM Non-Reactive (Nonreactive); Hepatitis B Surface Antigen Non-Reactive (Nonreactive); Hepatitis C Virus Antibody Reactive (Nonreactive)
--- NOTE | 2024-08-02 02:44 | PM.HP ---
Providers/Chief Complaint Primary Care Provider: Dallas Kwan MD Chief Complaint: Chest Pains\SOB History of Present Illness Leroy Olivo is a 59 year old male treated Hepatitis C, chronic HpEF, COPD, IDDM2, who came to the ED on 08/01/2024 for 2 days of progressive dyspnea. He endorses dyspnea even at rest, dizziness, light headedness, productive cough brown sputum, abdominal pain, watery diarrhea, He does not know whether he was having fevers at home. He denies chills, vomiting. He cannot tell me whether he had Melena or hematochezia. He endorses is supposed to wear O2, but he does not. In the ED, his vital signs were significant for With heart rate tachycardia to the 120s, and tachypnea to high 20s. His labs showed no leukocytosis, but it showed a lactic acid of 4.5, AST>1000, ALT of >1000. His INR and PTT were wnl. His labs were significant for Influenza A. A CXR was done that showed findings concerning for right heart failure. Given concern for possible PE, a CTA chest/abdomen/pelvis was done, and while it was negative for PE, it showed findings concerning for multilobar pneumonia. There were also concerns for aortic stenosis. There are also findings concerning for acute acalculous cholecystitis, so gallbladder ultrasound was done that showed gallbladder wall thickening likely related to hepatic congestion, but no signs of acute cholecystitis. He was given Meropenem 500 mg IVP x 1 linezolid, 4 mg IVP morphine x 1 Zofran IVP x 1, DuoNeb x 1, and 80 mg IVP x 1 of Lasix. Review of Systems Narrative: Constitutional: (-) fever(s), (+) chills, (-) body aches, (-) change in appetite, (-) change in weight, (+) fatigue, (+) malaise, (-) night sweats, (-) diaphoresis Eyes: (-) change in vision, (-) blurry vision, (-) diplopia, (-) floaters, ENT: (-) ear pain, (-) ear discharge, (-) aural fullness, (-) tinnitus, (-)nasal discharge, (-)nasal congestion, (-) post nasal drip, (-)dysphagia, (-)odynophagia, (-)hoarseness, Card: (+) Chest pain, (+) palpitations, (-) pedal edema, (-) orthopnea, (+) lightheadedness, (-) syncope, (+) pre-syncope, (-) leg pain with exertion Resp: (-)dyspnea, (-)dyspnea on exertion, (-) cough, (-) wheezing, (-) hemoptysis GI: (+) abdominal pain, (-) nausea, (-) vomiting, (-) hematemesis, (+) diarrhea, (-) constipation, (-) hematochezia, (-) melena : (-) flank pain, (-) dysuria, (-) hematuria, (+) urinary urgency, (+) urinary frequency, (-)oliguria MSK: (+) myalgias, (+) arthralgias Skin/Breast: (-) rash, (-) sores, (-) new lesions, (-) breast tenderness, (-) breast pain, or (-) nipple discharge Neuro: (+) headaches, (+) dizziness, (+) generalized weakness, (-) frequent falls, (-) Slurred speech present, (-) seizure-like activity Psych: (-) anxiety, (-) depression, (-) visual hallucinations, (-) auditory hallucinations, (-)tactile hallucinations, (-) suicidal ideation, (-) homicidal ideation Endo: (-) polyuria, (-) polydipsia, (-) polyphagia, (-)cold intolerance, (-) heat intolerance Heme/Lymph: (+) easy bruising, (-) easy bleeding (-) enlarged lymph nodes, (-) tender lymph nodes Allergy/Immunlogy: (-) food intolerance, (-) hives/urticaria, (-) itchy/watery eyes, (-) tongue/throat swelling, (-) facial swelling, Medications/Allergies Home Medications ?Medication ?Instructions ?Recorded ?Confirmed ?Last Taken ?Type blood sugar diagnostic (SolePoweruch #100 ea 06/25/22 08/02/24 09/29/22 21:00 Rx Ultra Test strips) blood-glucose meter (SolePoweruch #1 ea 06/25/22 08/02/2423 21:00 Rx Ultra2 Meter kit) lancets (OneTouch UltraSoft #100 ea 06/25/22 08/02/24 09/29/22 21:00 Rx Lancets) pen needle, diabetic 31 gauge x #100 ea 06/30/22 08/02/24 09/29/22 21:00 Rx 3/16 (BD Ultra-Fine Mini Pen Needle) albuterol sulfate 90 mcg/actuation 1 inh inhalation QID PRN shortness 06/07/23 08/02/24 Unknown Rx aerosol inhaler of breath or wheezing #6.7 grams fluticasone propionate 50 2 spray intranasal DAILY PRN 07/28/23 08/02/24 Unknown History mcg/actuation nasal Allergy Symptoms spray,suspension (Flonase Allergy Relief) bumetanide 1 mg tablet See Rx Instructions .Route 02/04/24 08/02/24 08/01/24 Rx .COMPLEX #60 tabs potassium chloride 20 mEq See Rx Instructions .Route 02/04/24 08/02/24 08/01/24 Rx tablet,extended release(part/cryst) .COMPLEX #60 tabs atorvastatin 40 mg tablet (Lipitor) 40 mg PO BEDTIME #90 tabs 02/06/24 08/02/24 07/31/24 Rx losartan 100 mg tablet 100 mg PO QAM #90 tabs 02/06/24 08/02/24 08/01/24 Rx carvedilol 12.5 mg tablet 12.5 mg PO BID #180 tabs 03/03/24 08/02/24 08/01/24 Rx benzonatate 200 mg capsule 200 mg PO BID PRN cough #30 caps 04/25/24 08/02/24 Unknown Rx insulin glargine 100 unit/mL (3 28 unit (0.28 mL) SUBCUT BID 60 04/28/24 08/02/24 08/01/24 Rx mL) subcutaneous pen (Lantus days #33.6 mL Solostar U-100 Insulin) hydralazine 25 mg tablet 25 mg PO TID #270 tabs 05/24/24 08/02/24 08/01/24 Rx aspirin 81 mg tablet,delayed 81 mg PO QAM #90 tabs 06/06/24 08/02/24 08/01/24 Rx release clopidogrel 75 mg tablet 75 mg PO QAM #90 tabs 06/06/24 08/02/24 08/01/24 Rx budesonide-formoterol HFA 80 2 puff inhalation BID #10.2 grams 07/28/24 08/02/24 08/01/24 Rx mcg-4.5 mcg/actuation aerosol inhaler (Symbicort) Allergies Allergy/AdvReac Type Severity Reaction Status Date / Time No Known Allergies Allergy Verified 07/24/24 11:36 PFSH Acute PFSH: Medical History (Updated 08/02/24 @ 08:39 by Carleen Carlos MD) Tobacco abuse counseling Tobacco use disorder, moderate, dependence COPD (chronic obstructive pulmonary disease) Heart failure with preserved ejection fraction Chest pain CHF (congestive heart failure) Atherosclerosis of [place] coronary artery without angina pectoris BJORN (iron deficiency anemia) Hepatitis C Congestive heart failure 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 Diabetic peripheral neuropathy associated with type 2 diabetes mellitus HTN (hypertension) Orthopedic hardware present Non-healing wound of left lower extremity Open tibial fracture Smoking Methamphetamine use Diabetes Surgical History History of surgery on lower extremity Family History Other Crohn's disease Diabetes Hyperlipidemia Hypertension Denies family history of CAD (coronary artery disease) Clotting disorder Dementia Psychiatric illness Chronic kidney disease (CKD) Anesthesia complication Bleeding disorder Lung disease Cancer Stroke Social History Smoking and tobacco/nicotine status: current some day tobacco/nicotine user cigarettes [ Other cigarette details: quit 2018. 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 Current gender identity: Male Special costa needs: No Agree to transfusion: Yes Vitals/I&O/Wt Last Vital Signs Temp 98.4 F 08/01/24 21:32 Pulse 116 H 08/02/24 00:30 Resp 13 08/02/24 00:30 BP 107/60 08/02/24 00:30 Pulse Ox 99 08/02/24 00:30 O2 Del Method Nasal Cannula 08/02/24 00:30 O2 Flow Rate 4 08/02/24 00:30 08/01/24 08/01/24 08/02/24 14:59 22:59 06:59 Intake Total 0 / 0 300 / 300 Balance 0 / 0 300 / 300 Weight last 48 hrs Weight 78.018 kg Physical Exam Narrative: Constitutional: GENERAL APPEARANCE: cooperative, comfortable and appears older than stated age; not combative, not disheveled, not ill appearing and not frail appearing HENT: HEAD & SCALP: normocephalic and atraumatic; NOSE: external nose not normal EXTERNAL EAR: no external ears normal MOUTH: Normal oral and palatal mucosa present THROAT: posterior oropharynx normal Eye: PERRL, EOMI, normal conjunctiva b/l Neck: normal visual inspection, trachea midline, No anterior neck swelling, No tracheal deviation, no submandibular swelling, Thyroid normal , cervical ROM normal Lymph: no cervical, supraclavicular LAD Resp: use of accessory muscles -abdominal respirations, bilateral inspiratory crackles throughout all lung singh with decreased breath sounds, and mild expiratory wheezes Cardio: tachycardia no m/r/g, or clicks. 2+ radial and DP pulses. GI: normoactive bowel sounds, non-tender, non-distended, no guarding, no rigidity, no rebound tenderness, no hepatosplenomegaly. : (-) Johnson in place draining urine Back/Pelvis: Deferred Extremity: No clubbing, No cyanosis and No edema Neuro: AO to person, place and time. CN normal except as noted. Normal gait present. 5/5 motor strength present throughout. Normal motor muscle tone present throughout. No tremor noted. No motor abnormalities present. No motor fasciculations present Psych: APPEARANCE: Yes grossly normal ATTITUDE: Yes calm and Yes engaged ACTIVITY/MOTOR BEHAVIOR: Yes appropriate eye contact SPEECH: Yes normal speech MOOD & AFFECT: Yes euthymic mood THOUGHT PROCESS: __ THOUGHT CONTENT: __ ATTENTION/CONCENTRATION: Yes attention grossly intact MEMORY/COGNITION: Yes memory grossly intact Data 08/01/24 23:04 08/01/24 23:04 Micro: Microbiology 08/01/24 23:04 Blood Culture - Preliminary Blood SPECIMEN COLLECTED 08/01/24 22:31 Blood Culture - Preliminary Blood SPECIMEN COLLECTED A&P Assessment and plan (1) Severe sepsis: (2) Bilateral pneumonia: (3) Influenza A: (4) Acute hypoxemic respiratory failure: Plan Leroy Olivo is a 59 year old male treated Hepatitis C, chronic HpEF, COPD, IDDM2, who came to the ED on 08/01/2024 for 2 days of progressive dyspnea. #Acute hypoxic respiratory failure- on 3L. Continue to monitor closely. He is at high risk of decompensating #Severe Sepsis: #Influenza A pneumonia #superimposed Multilobar Bacterial Pneumonia - noted on CTA chest/abd/pelvis - F/u BCx. Ordered Sputum cx - Started Tamiflu, Vanc, Zosyn, Azithromycin. #Lactic acidosis: continue to trend. #Acute COPD exacerbation - Ordered Xopenex/Ipratropium, Solumedrol, PPI #Elevated LFTs: congestive hepatopathy vs acute ischemic liver injury - s/p Furosemide 80mg IVP x 1 given in the ED. - Monitor closely. #Concern for Acute on chronic HFpEF - s/p Furosemide 80mg IVP given in the ED. - I am not convinced that he is in heart failure. I do believe that he will benefit from IVF, but at this time, efforts are being made to infuse antibiotics through one IVF, so will defer initiation of IVF to the Day Hospitalist. - Strict Is & Os. - F/u ECHO #HTN - Hydralazine IVP prn w/ parameters ordered. #IDDM2 - low dose SSI qAM and medium dose SSI qPM DVT ppx: Lovenox GI ppx: PPI. CODE STATUS: Per discussion wtih the patient, he is full code. Given my level of concern, about being high risk for respiratory demise, I have asked the warehouse administrator to move him to the ICU for closer monitoring PDMP PDMP Reviewed: Not Reviewed Attestations Medical Necessity Statement*: The patient needs to be hospitalized for greater than 2 midnights for acute hypoxic respiratory failure, multilobar pneumonia, severe sepsis, Influenza A pneumonia. Time Spent in Patient Care: >75mins was spent on chart review, patient interview/exam, lab/image review, plan formulation and coordination of care, and communication of plan to the patient Coding Level of Care Code 85059 High Time for a total of 70 minutes, includes reviewing past or interval history, examining/interviewing patient, placing orders, counseling patient/family/other support, updating patient/family/other support, discussing plan of care with staff, communicating with other healthcare providers, documenting encounter and coordinating care Diagnoses Severe sepsis A41.9; R65.20 Bilateral pneumonia J18.9 Influenza A J10.1 Acute hypoxemic respiratory failure J96.01
[2024-08-02 02:48] LABS: Lactic Acid level (Lactate) 2.2 mmol/L (0.5-2.2)
[2024-08-02 02:54] LABS: Troponin 5 2HR 112.3 ng/L (0-15); Troponin 5 2HR Delta 10.3 ABS# (0-10)
[2024-08-02 03:14] LABS: INR 1.15 (0.8-1.2)
[2024-08-02 03:15] LABS: Partial Thromboplastin Time 31.3 SECONDS (23.9-36.7)
--- NOTE | 2024-08-02 03:48 | ECG_ITS ---
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
--- NOTE | 2024-08-02 07:08 | PC.NURSE ---
Patient transferred from ED to CSU at 0708.
--- NOTE | 2024-08-02 07:22 | PHA.VACGOAL ---
Vancomycin Goal - Goal Vancomycin Goal:: 15-20 mg/L Vancomycin Indication:: Other (SEPSIS) - Therapy Current therapy:: Pip/Tazo Day of therpy:: Day 1 of [] . Actual body weight (kg): 172 lb - Data Labs: WBC 9.79 10^3/uL (3.29-11.43) 08/01/24 23:04 RBC 4.54 10^6/uL (3.85-5.65) 08/01/24 23:04 Hgb 14.40 g/dL (11.27-16.99) 08/01/24 23:04 Hct 44.3 % (37-53) 08/01/24 23:04 MCV 97.6 fl (82-101) 08/01/24 23:04 MCH 31.7 pg (27-33) 08/01/24 23:04 MCHC 32.5 g/dL (30-55) 08/01/24 23:04 RDW 12.6 % (12.1-15.1) 08/01/24 23:04 Sodium 135 mmol/L (136-145) L 08/01/24 23:04 Potassium 5.2 mmol/L (3.5-5.1) H 08/01/24 23:04 Chloride 97 mmol/L (98-107) L 08/01/24 23:04 Carbon Dioxide 21 mmol/L (22-29) L 08/01/24 23:04 Anion Gap 22.2 (5-19) H 08/01/24 23:04 BUN 26 mg/dL (8-23) H 08/01/24 23:04 Creatinine 1.2 mg/dL (0.7-1.2) 08/01/24 23:04 GFR Calculation 74.5 mL/min (90-130) L 08/01/24 23:04 Last dialysis session:: N/A Treatment plan:: new consult Regimen:: INITIAL LOADING DOSE OF 2000 MG X 1 MAINTENANCE DOSE OF 1000 MG Q12H PER DOSING PROTOCOL Follow up:: WILL CONTINUE TO MONITOR AND FOLLOW UP DAILY
[2024-08-02] MEDS: AZITHROMYCIN ADD-Vantage 500 MG in 0.9% NaCl ADD-Vantage 250 ML 250 MG IV (07:23)
[2024-08-02] MEDS: hyDRALAzine 20 mg/mL INJ 1 mL 10 MG IVP (07:51)
--- NOTE | 2024-08-02 07:56 | USCV_ITS ---
Leroy Olivo Age: 59 Gender: M : 1965 Exam Date: 08/02/2024 10:15 Ordering Phys: Carleen Carlos MD Technologist: Exam Location: [facility] Indication: cardiomyopathy BP: 125 / 83 HR: 95 Rhythm: Sinus Technical Quality: Adequate MEASUREMENTS (Male / Female) Normal Values 2D ECHO LV Diastolic Diameter PLAX 4.8 cm 4.2 - 5.9 / 3.9 - 5.3 cm IVS Diastolic Thickness 1.2 cm 0.6 - 1.0 / 0.6 - 0.9 cm IVS Systolic Thickness 1.4 cm LVPW Diastolic Thickness 1.3 cm 0.6 - 1.0 / 0.6 - 0.9 cm LVPW Systolic Thickness 1.3 cm LVOT Diameter 2.0 cm LV Ejection Fraction 2D Teich 21.9 % LV Ejection Fraction MOD 4C 32.9 % LV Ejection Fraction MOD 2C 33.5 % LV Ejection Fraction 2C AL 35.0 % LA Diameter 4.0 cm RA Systolic Volume 4C AL 88.4 ml RA Systolic Volume 4C MOD 88.6 ml Aorta at Sinotubular Diameter 2.5 cm IVC Diameter 2.5 cm M-MODE LA Ao Ratio MM 1.1 AV Cusp Separation MM 1.8 cm DOPPLER AV Peak Velocity 106.0 cm/s LVOT Peak Velocity 82.0 cm/s AV Area Cont Eq vti 2.6 cm squared AV Area Cont Eq pk 2.5 cm squared MV Peak Velocity 90.0 cm/s MV Area PHT 5.4 cm squared Mitral E to A Ratio 2.1 TV Peak Velocity 289.0 cm/s TR Peak Velocity 299.0 cm/s TR Peak Gradient 35.8 mmHg TV Peak E Velocity 94.0 cm/s PV Peak Velocity 79.0 cm/s FINDINGS Left Ventricle Moderately increased left ventricular cavity size. Severely decreased left ventricular systolic function. Left ventricular ejection fraction is estimated at 25 %. Global left ventricular hypokinesis. Grade III/IV diastolic dysfunction (restrictive filling pattern), severely elevated filling pressures. Right Ventricle The right ventricle is normal in size and function. Right Atrium Moderately increased right atrial size. Left Atrium Moderately increased left atrial size. Mitral Valve Thickened mitral valve. No mitral valve stenosis. Trace mitral valve regurgitation. Aortic Valve Moderate aortic valve calcification. No aortic valve stenosis. Trace aortic valve regurgitation. Tricuspid Valve Structurally normal tricuspid valve without significant stenosis or regurgitation. Pulmonary artery systolic pressure is normal. Pulmonic Valve Structurally normal pulmonic valve without significant stenosis. There is no pulmonic regurgitation. Pericardium Normal pericardium without effusion. Aorta Normal ascending aorta dimension. IVC The inferior vena cava appears normal. CONCLUSIONS Moderately increased left ventricular cavity size. Severely decreased left ventricular systolic function. Left ventricular ejection fraction is estimated at 25 %. Global left ventricular hypokinesis. Grade III/IV diastolic dysfunction (restrictive filling pattern), severely elevated filling pressures. Moderate biatrial enlargment Moderate aortic valve calcification. No aortic valve stenosis. Trace aortic valve regurgitation. There is no pericardial effusion. Right atrial pressure is around 20 mm of mercury. Jeff Ramey MD (Electronically Signed) Final Date: 02 August 2024 15:02 S
[2024-08-02] MEDS: levalbuterol 1.25 mg/3 mL Neb INHALATION ×4 (08:01→20:51)
[2024-08-02] MEDS: ipratropium 0.5 mg/2.5 mL Neb INHALATION ×4 (08:01→20:51)
[2024-08-02 08:09] LABS: Glucose Point of Care 210 mg/dL (70-110)
[2024-08-02 08:15] LABS: Bacteria Urine None Seen /hpf; Hyaline Casts Urine 0.81 /lpf; RBC Urine 0-2 /hpf (0-2); Squamous Epithelial Cell Urine 0-5 /hpf (0-5); WBC Urine 0-5 /hpf (0-5)
[2024-08-02 08:19] LABS: Amphetamines Screen Urine Negative (Negative); Barbiturates Screen Urine Negative (Negative); Benzodiazepines Screen Urine Negative (Negative); Cocaine Screen Urine Negative (Negative); Opiate Screen Urine Positive (Negative); PCP Screen Urine Negative (Negative); THC Screen Urine Negative (Negative)
[2024-08-02 08:26] LABS: Add Urine Microscopic? YES; Bilirubin Urine Neg (Negative); Blood Urine 2+ (Negative); Glucose Urine UA Norm (Normal); Ketones Urine Negative (Negative); Nitrate Urine Negative (Negative); Protein Urine 1+ (Negative); Specific Gravity, Urine 1.005 (1.005-1.030); Urine Appearance Clear (CLEAR); Urine Color Yellow (Yellow); Urobilinogen Urine Neg (Negative); pH Urine 5 (5-7)
[2024-08-02 08:27] LABS: Add Urine Culture? No; Leukocyte Esterase Urine Negative (Negative)
[2024-08-02 08:30] LABS: Basophils % 0.1 %; Hematocrit 41.9 % (37-53); Lymphocytes # 0.4 10^3/uL (0.8-4.8); Lymphocytes % 3.9 %; Mean Corpuscular HGB Conc 33.7 g/dL (30-55); Mean Corpuscular Hemoglobin 31.7 pg (27-33); Mean Corpuscular Volume 94.2 fl (82-101); Mean Platelet Volume 11.2 fL (7.4-10.4); Monocytes # 0.3 10^3/uL (0.2-0.9); Monocytes % 2.9 %; Neutrophils # 8.69 10^3/uL (1.8-7.7); Neutrophils % 92.7 %; Nucleated Red Blood Cells % 0 %; Platelet Count 155 10^3/cmm (157-399); Red Blood Count 4.45 10^6/uL (3.85-5.65); Red Cell Distribution Width 12.4 % (12.1-15.1); White Blood Count 9.38 10^3/uL (3.29-11.43)
[2024-08-02] MEDS: vancomycin 2,000 MG/400 ML PIGGYBACK 200 MG IV (08:33)
[2024-08-02 08:45] LABS: Blood Urea Nitrogen 28 mg/dL (8-23); Calcium 8.5 mg/dL (8.5-10.5); Carbon Dioxide 22 mmol/L (22-29); Chloride 96 mmol/L (98-107); Creatinine Clr Calc Pharmacy 61.0121; Glomerular Filtration Rate 74.5 mL/min (90-130); Glucose 210 mg/dL (65-115); Osmolality Calculated 290 mOsm/kg (285-295); Sodium 134 mmol/L (136-145)
[2024-08-02 08:46] LABS: Anion Gap 20.6 (5-19); Potassium 4.6 mmol/L (3.5-5.1)
[2024-08-02 08:54] LABS: Lactic Sepsis W/Reflex 3.1 mmol/L (0.5-2.2)
[2024-08-02] MEDS: enoxaparin 40 mg/0.4 mL Syringe SUBCUT (09:16)
[2024-08-02] MEDS: methylPREDNISolone sod succ 125 mg/2 mL INJ 80 MG IVP (09:16)
[2024-08-02] MEDS: docusate sodium 100 mg Capsule 200 MG PO (09:17)
[2024-08-02] MEDS: oseltamivir phosphate 75 mg Capsule PO ×2 (09:17→17:25)
[2024-08-02 10:10] LABS: Reflex Lactate Order REFLEX LACTIC ORDERD
[2024-08-02] MEDS: piperacillin-tazobactam 3.375 GM in sodium chloride 0.9% (plus) 50 ML IV ×2 (10:47→17:24)
[2024-08-02 11:23] LABS: Lactic Acid level (Lactate) 3.1 mmol/L (0.5-2.2)
[2024-08-02 11:38] LABS: Glucose Point of Care 171 mg/dL (70-110)
[2024-08-02 13:07] LABS: MRSA PCR OZH (swab) NOT DETECTED (Negative)
--- OUTSIDE RECORDS SUMMARY | 2024-08-02 13:14 | XMS_ITS | Encounter Summary ---
Author Organization [facility] Address [address] [place] [address] Care Team Providers Care Orthopedic Shoe Fitter Name Role Phone Unavailable Primary Care Provider Unavailabl e Encounter Details Date Type Department Care Team (Late st Contact Info) Description 05/28/2022 Lab Requisition [facility] Laboratory Services [address] [place] [phone] Fernando Joyner MD [address] [place] [address] Social History Tobacco Use Types Packs/Day Years Used Date Smoking Tobacco: Never Assessed Sex and Gender Information Value Date Recorded Sex Assigned at Not on file Legal Sex Male 7:03 AM VIRTUAL RECRUITER Gender Identity Not on file Sexual Orientation Not on file documented as of this encounter Plan of Treatment Not on file documented as of this encounter Procedures Procedure Name Priority Date/Time Associated Diagnosis Comments CBC WITH DIFFERENTIAL Routine 05/28/2022 1:01 PM VIRTUAL RECRUITER COMPREHENSIVE METABOLIC PANEL Routine 05/28/2022 1:01 PM VIRTUAL RECRUITER documented in this encounter Results * (ABNORMAL) CBC WITH DIFFERENTIAL (05/28/2022 1:01 PM VIRTUAL RECRUITER) WBC 9.7 4.8 - 10.8 K/uL 05/28/2022 3:00 PM VIRTUAL RECRUITER [facility] RBC 3.80(L) 4.60 - 6.20 M/uL 05/28/2022 3:00 PM VIRTUAL RECRUITER [facility] HEMOGLOBIN 11.9(L) 14.0 - 18.0 g/dL 05/28/2022 3:[address] [facility] HEMATOCRIT 37.8(L) 41.0 - 53.0 % 05/28/2022 3:[address] [facility] MCV 99.5 84.0 - 103.0 fL 05/28/2022 3:[address] [facility] MCH 31.3 27.0 - 34.0 pg 05/28/2022 3:[address] [facility] MCHC 31.5 30.0 - 35.0 g/dL 05/28/2022 3:[address] [facility] RDW 14.4 11.0 - 14.5 % 05/28/2022 3:[address] [facility] RDW-STDEV 52.0 37.0 - 54.0 fL 05/28/2022 3:[address] [facility] PLATELETS 365 140 - 440 K/uL 05/28/2022 3:[address] [facility] MPV 11.2 8.9 - 12.8 fL 05/28/2022 3:[address] [facility] NEUTROPHILS 68 42 - 75 % 05/28/2022 3:[address] [facility] LYMPHOCYTES 21(L) 24 - 44 % 05/28/2022 3:[address] [facility] MONOCYTES 9 2 - 10 % 05/28/2022 3:[address] [facility] EOSINOPHILS 2 0 - 7 % 05/28/2022 3:[address] [facility] BASOPHILS 0 0 - 1 % 05/28/2022 3:[address] [facility] IMMATURE GRANULOCYTES 1 0 - 2 % 05/28/2022 3:[address] [facility] NEUTROPHIL ABSOLUTE 6.59 2.00 - 8.00 K/uL 05/28/2022 3:[address] [facility] LYMPHOCYTE ABSOLUTE 1.98 1.20 - 4.00 K/uL 05/28/2022 3:[address] [facility] MONOCYTE ABSOLUTE 0.82(H) 0.10 - 0.60 K/uL 05/28/2022 3:[address] [facility] EOSINOPHIL ABSOLUTE 0.16 0.00 - 0.70 K/uL 05/28/2022 3:[address] [facility] BASOPHILS ABSOLUTE 0.04 0.00 - 0.20 K/uL 05/28/2022 3:[address] [facility] IMMATURE GRANULOCYTES ABSOLUTE 0.06 0.00 - 0.10 K/uL 05/28/2022 3:[address] [facility] Blood Collection / Unknown 05/28/2022 1:01 PM VIRTUAL RECRUITER 05/28/2022 2:52 PM VIRTUAL RECRUITER us Fernando Joyner MD HEMATOLOGY ORDERABLES Final Res ult [facility] CLIA # [id number] [address] [place] [id number] * (ABNORMAL) COMPREHENSIVE METABOLIC PANEL (05/28/2022 1:01 PM VIRTUAL RECRUITER) SODIUM 138 136 - 145 mmol/L 05/28/2022 3:[address] [facility] POTASSIUM 4.7 3.5 - 5.1 mmol/L 05/28/2022 3:[address] [facility] CHLORIDE 105 98 - 107 mmol/L 05/28/2022 3:[address] [facility] CO2 24 22 - 29 mmol/L 05/28/2022 3:[address] [facility] CALCIUM 9.2 8.6 - 10.0 mg/dL 05/28/2022 3:[address] [facility] BUN 17 6 - 20 mg/dL 05/28/2022 3:[address] [facility] CREATININE 0.57(L) 0.67 - 1.17 mg/dL 05/28/2022 3:[address] [facility] GLUCOSE 107(H) 74 - 99 mg/dL 05/28/2022 3:[address] [facility] TOTAL PROTEIN 7.8 6.4 - 8.3 g/dL 05/28/2022 3:[address] [facility] ALBUMIN 2.9(L) 3.5 - 5.2 g/dL 05/28/2022 3:[address] [facility] BILIRUBIN TOTAL 0.3 0.2 - 1.0 mg/dL 05/28/2022 3:[address] [facility] ALKALINE PHOSPHATASE 201(H) 40 - 129 U/L 05/28/2022 3:[address] [facility] AST 48 10 - 50 U/L 05/28/2022 3:[address] [facility] ALT 41 <=50 U/L 05/28/2022 3:[address] [facility] GFR >60 >=60 mL/min/1. 73 sq meter 05/28/2022 3:[address] [facility] Comment:eGFR calculated with 2020 CKD-EPI equation. Vegetarian diet, extremely high or low muscle mass, and may affect results. Cystatin C with Glomerular Filtration Rate is a suitable alternative for these patients. ANION GAP 9 9 - 20 mmol/L 05/28/2022 3:[address] [facility] Blood Collection / Unknown 05/28/2022 1:01 PM VIRTUAL RECRUITER 05/28/2022 3:11 PM VIRTUAL RECRUITER Fernando Joyner MD CHEMISTRY ORDERABLES Final Resu lt [facility] CLIA # [id number] [address] [address] [place], [place] [id number] documented in this encounter Visit Diagnoses Not on filedocumented in this encounter
--- OUTSIDE RECORDS SUMMARY | 2024-08-02 13:14 | XMS_ITS | Encounter Summary ---
Author Organization [facility] Address 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 Blood Collection / Unknown 05/28/2022 4:00 AM SINTERING PRESS OPERATOR 05/28/2022 6:07 AM SINTERING PRESS OPERATOR Daniel Barnes DO CHEMISTRY ORDERABLES Final R esult [facility] # [id number] [facility] [address] [place], [place] [id number] documented in this encounter Visit Diagnoses Not on filedocumented in this encounter
--- OUTSIDE RECORDS SUMMARY | 2024-08-02 13:14 | XMS_ITS | Encounter Summary ---
Author Organization [facility] Address [address] [place] [address] Care Team Providers Care Production Mechanic Name Role Phone Unavailable Primary Care Provider Unavailabl e Encounter Details Date Type Department Care Team (Late st Contact Info) Description 05/25/2022 Lab Requisition [facility] General Laboratory Services [address] [place] [address] Fabiola Mendez PA-C [address] [place] [address] Social History Tobacco Use Types Packs/Day Years Used Date Smoking Tobacco: Never Assessed Sex and Gender Information Value Date Recorded Sex Assigned at Not on file Legal Sex Male 7:03 AM RING CONDUCTOR Gender Identity Not on file Sexual Orientation Not on file documented as of this encounter Plan of Treatment Not on file documented as of this encounter Procedures Procedure Name Priority Date/Time Associated Diagnosis Comments CBC WITH DIFFERENTIAL Routine 05/25/2022 1:20 AM RING CONDUCTOR C-REACTIVE PROTEIN Routine 05/25/2022 1: 20 AM RING CONDUCTOR LIPID PANEL Routine 05/25/2022 1:20 AM RING CONDUCTOR COMPREHENSIVE METABOLIC PANEL Routine 05/25/2022 1:20 AM RING CONDUCTOR documented in this encounter Results * C-REACTIVE PROTEIN (05/25/2022 1:20 AM RING CONDUCTOR) [facility] CRP 3.4 0.0 - 5.0 mg/L 05/25/2022 6:11 AM [facility] Blood Collection / Unknown 05/25/2022 1:20 AM RING CONDUCTOR 05/25/2022 5:29 AM RING CONDUCTOR Fabiola Mendez PA-C CHEMISTRY ORDERABLES Final Res ult [facility] CLIA # [id number] [address] [address] [place] [address] * (ABNORMAL) CBC WITH DIFFERENTIAL (05/25/2022 1:20 AM RING CONDUCTOR) Pathologist [facility] WBC 9.9 4.8 - 10.8 K/uL 05/25/2022 5:43 AM [facility] RBC 3.31(L) 4.60 - 6.20 M/uL 05/25/2022 5:43 AM [facility] HEMOGLOBIN 10.2(L) 14.0 - 18.0 g/dL 05/25/2022 5:43 AM [facility] HEMATOCRIT 32.6(L) 41.0 - 53.0 % 05/25/2022 5:43 AM [facility] MCV 98.5 84.0 - 103.0 fL 05/25/2022 5:43 AM [facility] MCH 30.8 27.0 - 34.0 pg 05/25/2022 5:43 AM [facility] MCHC 31.3 30.0 - 35.0 g/dL 05/25/2022 5:43 AM [facility] RDW 14.3 11.0 - 14.5 % 05/25/2022 5:43 AM [facility] RDW-STDEV 51.2 37.0 - 54.0 fL 05/25/2022 5:43 AM [facility] PLATELETS 386 140 - 440 K/uL 05/25/2022 5:43 AM [facility] MPV 11.2 8.9 - 12.8 fL 05/25/2022 5:43 AM [facility] NEUTROPHILS 67 42 - 75 % 05/25/2022 5:43 AM [facility] LYMPHOCYTES 23(L) 24 - 44 % 05/25/2022 5:43 AM [facility] MONOCYTES 8 2 - 10 % 05/25/2022 5:43 AM [facility] EOSINOPHILS 1 0 - 7 % 05/25/2022 5:43 AM [facility] BASOPHILS 0 0 - 1 % 05/25/2022 5:43 AM [facility] IMMATURE GRANULOCYTES 1 0 - 2 % 05/25/2022 5:43 AM [facility] NEUTROPHIL ABSOLUTE 6.65 2.00 - 8.00 K/uL 05/25/2022 5:43 AM [facility] LYMPHOCYTE ABSOLUTE 2.26 1.20 - 4.00 K/uL 05/25/2022 5:43 AM [facility] MONOCYTE ABSOLUTE 0.75(H) 0.10 - 0.60 K/uL 05/25/2022 5:43 AM [facility] EOSINOPHIL ABSOLUTE 0.13 0.00 - 0.70 K/uL 05/25/2022 5:43 AM [facility] BASOPHILS ABSOLUTE 0.03 0.00 - 0.20 K/uL 05/25/2022 5:43 AM [facility] IMMATURE GRANULOCYTES ABSOLUTE 0.06 0.00 - 0.10 K/uL 05/25/2022 5:43 AM [facility] Blood Collection / Unknown 05/25/2022 1:20 AM RING CONDUCTOR 05/25/2022 5:29 AM RING CONDUCTOR us Fabiola Mendez PA-C HEMATOLOGY ORDERABLES Final Re sult [facility] CLIA # [id number] [address] [place] [address] * LIPID PANEL (05/25/2022 1:20 AM RING CONDUCTOR) CHOLESTEROL 163 <200 mg/dL 05/25/2022 6:11 AM [facility] TRIGLYCERIDE 62 <150 mg/dL 05/25/2022 6:11 AM [facility] HDL 57 40 - 59 mg/dL 05/25/2022 6:11 AM [facility] LDL CALCULATED 94 <100 mg/dL 05/25/2022 6:11 AM [facility] NON-HDL CHOLESTEROL 106 <130 mg/dL 05/25/2022 6:11 AM [facility] Blood Collection / Unknown 05/25/2022 1:20 AM [facility] 05/25/2022 5:[address] [facility] - 05/25/2022 6:11 AM RING CONDUCTOR TOTAL CHOLESTEROL ??mg/dL ??Desirable <200 ??Borderline high 200-239 ??High >=240 TRIGLYCERIDES ??mg/dL ??Normal <150 ??Borderline high 150-199 ??High 200-499 ??Very high >=500 HDL CHOLESTEROL ??mg/dL ??Low <40 ??Normal 40-59 ??Desirable >=60 NON HDL CHOLESTEROL mg/dL ??Optimal <130 ??Near Optimal 130-159 ??Borderline High 160-189 ??Very High >=190 CALCULATED LDL mg/dL ??LDL <70, OPTIMAL if have Atherosclerotic cardiovascular disease (ASCVD) ??or intermediate or higher (>7.5%) 10 year risk of ASCVD including most adults ??with diabetes. ??LDL <100, Optimal in adult patients with low (<7.5%) 10 year ASCVD risk ??LDL 100-160, Suboptimal ??LDL >160, High ??LDL >190, Very high ATPIII Guidelines Reference Ranges for Lipid Panels (NCEP/AMA) . us Fabiola Mendez PA-C CHEMISTRY ORDERABLES Final Res ult [facility] CLIA # [id number] [address] [address] [place] [address] * (ABNORMAL) COMPREHENSIVE METABOLIC PANEL (05/25/2022 1:20 AM [facility]) [facility] SODIUM 139 136 - 145 mmol/L 05/25/2022 6:11 AM [facility] POTASSIUM 3.9 3.5 - 5.1 mmol/L 05/25/2022 6:11 AM [facility] CHLORIDE 107 98 - 107 mmol/L 05/25/2022 6:11 AM [facility] CO2 25 22 - 29 mmol/L 05/25/2022 6:11 AM [facility] CALCIUM 8.8 8.6 - 10.0 mg/dL 05/25/2022 6:11 AM [facility] BUN 13 6 - 20 mg/dL 05/25/2022 6:11 AM [facility] CREATININE 0.73 0.67 - 1.17 mg/dL 05/25/2022 6:11 AM [facility] GLUCOSE 142(H) 74 - 99 mg/dL 05/25/2022 6:11 AM [facility] TOTAL PROTEIN 7.3 6.4 - 8.3 g/dL 05/25/2022 6:11 AM [facility] ALBUMIN 2.8(L) 3.5 - 5.2 g/dL 05/25/2022 6:11 AM [facility] BILIRUBIN TOTAL 0.3 0.2 - 1.0 mg/dL 05/25/2022 6:11 AM [facility] ALKALINE PHOSPHATASE 220(H) 40 - 129 U/L 05/25/2022 6:11 AM [facility] AST 44 10 - 50 U/L 05/25/2022 6:11 AM [facility] ALT 43 <=50 U/L 05/25/2022 6:11 AM [facility] GFR >60 >=60 mL/min/1.7 3 sq meter 05/25/2022 6:11 AM [facility] Comment:eGFR calculated with 2020 CKD-EPI equation. Vegetarian diet, extremely high or low muscle mass, and may affect results. Cystatin C with Glomerular Filtration Rate is a suitable alternative for these patients. ANION GAP 7(L) 9 - 20 mmol/L 05/25/2022 6:11 AM RING CONDUCTOR [facility] Blood Collection / Unknown 05/25/2022 1:20 AM RING CONDUCTOR 05/25/2022 5:29 AM RING CONDUCTOR us Fabiola Mendez PA-C CHEMISTRY ORDERABLES Final Res ult [facility] CLIA # [id number] [address] [place] [address] documented in this encounter Visit Diagnoses Not on filedocumented in this encounter
--- OUTSIDE RECORDS SUMMARY | 2024-08-02 13:14 | XMS_ITS | Encounter Summary ---
Author Organization [facility] Address [address] [place] [address] Care Team Providers Care Ground Surveillance Systems Operator Name Role Phone Unavailable Primary Care Provider Unavailabl e Encounter Details Date Type Department Care Team (Late st Contact Info) Description 06/15/2022 Lab Requisition [facility] Laboratory Services [address] [place] [address] Fabiola Mendez PA-C [address] [place] [address] Social History Tobacco Use Types Packs/Day Years Used Date Smoking Tobacco: Never Assessed Sex and Gender Information Value Date Recorded Sex Assigned at Not on file Legal Sex Male 7:03 AM BRAKE REPAIRER HYDRAULIC Gender Identity Not on file Sexual Orientation Not on file documented as of this encounter Plan of Treatment Not on file documented as of this encounter Procedures Procedure Name Priority Date/Time Associated Diagnosis Comments CBC WITH DIFFERENTIAL Routine 06/15/2022 3:48 AM BRAKE REPAIRER HYDRAULIC COMPREHENSIVE METABOLIC PANEL Routine 06/15/2022 3:48 AM BRAKE REPAIRER HYDRAULIC documented in this encounter Results * (ABNORMAL) CBC WITH DIFFERENTIAL (06/15/2022 3:48 AM BRAKE REPAIRER HYDRAULIC) WBC 8.6 4.8 - 10.8 K/uL 06/15/2022 6:11 AM BRAKE REPAIRER HYDRAULIC [facility] RBC 3.85(L) 4.60 - 6.20 M/uL 06/15/2022 6:11 AM BRAKE REPAIRER HYDRAULIC [facility] HEMOGLOBIN 12.3(L) 14.0 - 18.0 g/dL 06/15/2022 6:11 AM [facility] [employer] [facility] HEMATOCRIT 37.1(L) 41.0 - 53.0 % 06/15/2022 6:11 AM [facility] [employer] [facility] MCV 96.4 84.0 - 103.0 fL 06/15/2022 6:11 AM [facility] MCH 31.9 27.0 - 34.0 pg 06/15/2022 6:11 AM [facility] MCHC 33.2 30.0 - 35.0 g/dL 06/15/2022 6:11 AM [facility] [employer] [facility] RDW 13.2 11.0 - 14.5 % 06/15/2022 6:11 AM [facility] RDW-STDEV 46.5 37.0 - 54.0 fL 06/15/2022 6:11 AM [facility] [employer] [facility] PLATELETS 237 140 - 440 K/uL 06/15/2022 6:11 AM [facility] [employer] [facility] MPV 11.6 8.9 - 12.8 fL 06/15/2022 6:11 AM [facility] [employer] [facility] NEUTROPHILS 63 42 - 75 % 06/15/2022 6:11 AM [facility] LYMPHOCYTES 24 24 - 44 % 06/15/2022 6:11 AM [facility] [employer] [facility] MONOCYTES 10 2 - 10 % 06/15/2022 6:11 AM [facility] [employer] [facility] EOSINOPHILS 2 0 - 7 % 06/15/2022 6:11 AM [facility] [employer] [facility] BASOPHILS 0 0 - 1 % 06/15/2022 6:11 AM [facility] [employer] [facility] IMMATURE GRANULOCYTES 0 0 - 2 % 06/15/2022 6:11 AM [facility] [employer] [facility] NEUTROPHIL ABSOLUTE 5.41 2.00 - 8.00 K/uL 06/15/2022 6:11 AM [facility] [employer] [facility] LYMPHOCYTE ABSOLUTE 2.09 1.20 - 4.00 K/uL 06/15/2022 6:11 AM [facility] [employer] [facility] MONOCYTE ABSOLUTE 0.90(H) 0.10 - 0.60 K/uL 06/15/2022 6:11 AM [facility] EOSINOPHIL ABSOLUTE 0.18 0.00 - 0.70 K/uL 06/15/2022 6:11 AM [facility] BASOPHILS ABSOLUTE 0.02 0.00 - 0.20 K/uL 06/15/2022 6:11 AM [facility] IMMATURE GRANULOCYTES ABSOLUTE 0.03 0.00 - 0.10 K/uL 06/15/2022 6:11 AM [facility] Blood Collection / Unknown 06/15/2022 3:48 AM BRAKE REPAIRER HYDRAULIC 06/15/2022 6:01 AM BRAKE REPAIRER HYDRAULIC us Fabiola Mendez PA-C HEMATOLOGY ORDERABLES Final Re sult [facility] CLIA # [id number] [address] [address] * (ABNORMAL) COMPREHENSIVE METABOLIC PANEL (06/15/2022 3:48 AM BRAKE REPAIRER HYDRAULIC) SODIUM 141 136 - 145 mmol/L 06/15/2022 6:24 AM [facility] POTASSIUM 3.9 3.5 - 5.1 mmol/L 06/15/2022 6:24 AM [facility] CHLORIDE 107 98 - 107 mmol/L 06/15/2022 6:24 AM [facility] CO2 23 22 - 29 mmol/L 06/15/2022 6:24 AM [facility] CALCIUM 9.7 8.6 - 10.0 mg/dL 06/15/2022 6:24 AM [facility] BUN 17 6 - 20 mg/dL 06/15/2022 6:24 AM [facility] CREATININE 0.78 0.67 - 1.17 mg/dL 06/15/2022 6:24 AM [facility] GLUCOSE 123(H) 74 - 99 mg/dL 06/15/2022 6:24 AM [facility] TOTAL PROTEIN 8.0 6.4 - 8.3 g/dL 06/15/2022 6:24 AM [facility] ALBUMIN 3.7 3.5 - 5.2 g/dL 06/15/2022 6:24 AM [facility] BILIRUBIN TOTAL 0.2 0.2 - 1.0 mg/dL 06/15/2022 6:24 AM [facility] ALKALINE PHOSPHATASE 155(H) 40 - 129 U/L 06/15/2022 6:24 AM [facility] AST 59(H) 10 - 50 U/L 06/15/2022 6:24 AM [facility] ALT 70(H) <=50 U/L 06/15/2022 6:24 AM [facility] GFR >60 >=60 mL/min/1.7 3 sq meter 06/15/2022 6:24 AM [facility] Comment:eGFR calculated with 2020 CKD-EPI equation. Vegetarian diet, extremely high or low muscle mass, and may affect results. Cystatin C with Glomerular Filtration Rate is a suitable alternative for these patients. ANION GAP 11 9 - 20 mmol/L 06/15/2022 6:24 AM [facility] Blood Collection / Unknown 06/15/2022 3:48 AM BRAKE REPAIRER HYDRAULIC 06/15/2022 6:02 AM BRAKE REPAIRER HYDRAULIC Fabiola Mendez PA-C CHEMISTRY ORDERABLES Final Res ult [facility] CLIA # [id number] [address] [id number] documented in this encounter Visit Diagnoses Not on filedocumented in this encounter
--- OUTSIDE RECORDS SUMMARY | 2024-08-02 13:14 | XMS_ITS | Encounter Summary ---
Author Organization [employer] Address [address] [place] [address] Care Team Providers Care Sociology Adjunct Instructor Name Role Phone Unavailable Primary Care Provider Unavailabl e Encounter Details Date Type Department Care Team (Late st Contact Info) Description 05/21/2022 Lab Requisition [facility] Laboratory Services [address] [place] [phone] Daniel Barnes, DO [address] [place] [address] Social History Tobacco Use Types Packs/Day Years Used Date Smoking Tobacco: Never Assessed Sex and Gender Information Value Date Recorded Sex Assigned at Not on file Legal Sex Male 7:03 AM SKIN FORMER Gender Identity Not on file Sexual Orientation Not on file documented as of this encounter Plan of Treatment Not on file documented as of this encounter Procedures Procedure Name Priority Date/Time Associated Diagnosis Comments MISCELLANEOUS LAB TEST Routine 7:49 AM SKIN FORMER documented in this encounter Results * MISCELLANEOUS LAB TEST (05/21/2022 7:49 AM SKIN FORMER) MISCELLANEOUS LAB TEST See Note 05/22/2022 7:53 AM SKIN FORMER [facility] Comment: HIV 1/2 ANTIGEN/ANTIBODY,FOURTH GENERATION W/RFL TEST NAME ? RESULT ?FLAG UNITS ?REF RANGE ========= ? ====== ?==== ===== ?========= HIV 1+2 Ab+HIV1 p24 Ag SerPl Ql IA ? NON-REACTIVE ?NON-REACTIVE ? HIV-1 antigen and HIV-1/HIV-2 antibodies were not detected. There is no laboratory evidence of HIV infection. PLEASE NOTE: This information has been disclosed to you from records whose confidentiality may be protected by state law. ??If your state requires such protection, then the state law prohibits you from making any further disclosure of the information without the specific written consent of the person to whom it pertains, or as otherwise permitted by law. A general authorization for the release of medical or other information is NOT sufficient for this purpose. ?? For additional information please refer to http://education.WinWeb/faq/OBT328 (This link is being provided for informational/ educational purposes only.) The performance of this assay has not been clinically validated in patients less than 2 years old. Test Performed at: [facility] [address] [place] [address] ??[phone] ? Lukas Patel D.O., MPH Blood Collection / Unknown 05/21/2022 7:49 AM SKIN FORMER 05/21/2022 9:18 AM SKIN FORMER Narrative [facility] - 05/22/2022 7:53 AM SKIN FORMER Performing Organization Information: ?Site ID: [id number] ?Name: [facility] ?Address: [address] [place] [id number] ?Director: Lukas Patel D.O., MPH us Daniel Barnes DO CHEMISTRY ORDERABLES Final R esult [facility] documented in this encounter Visit Diagnoses Not on filedocumented in this encounter
--- OUTSIDE RECORDS SUMMARY | 2024-08-02 13:14 | XMS_ITS | Clinical Summary ---
Author Organization [facility] Address [address] [place] [address] Phone Care Team Providers Care Development System Efficiency Manager Name Role Phone Unavailable Primary Care Provider Unavailabl e Allergies No known active allergies Social History Tobacco Use Types Packs/Day Years Used Date Smoking Tobacco: Never Assessed Sex and Gender Information Value Date Recorded Sex Assigned at Not on file Legal Sex Male 7:03 AM PROFESSIONAL GOLF TOURNAMENT PLAYER Gender Identity Not on file Sexual Orientation Not on file Plan of Treatment Health Maintenance Due Date Last Done Comments DTAP/TDAP/TD VACCINES (1 - Tdap) 07/27/1982 COLORECTAL SCREENING 07/27/2008 Colorectal Cancer Screening 07/27/2008 FIT-DNA Q 3 years 07/27/2008 FIT/FOBT Q 1 year 07/27/2008 Flex Sig/CT Colonography Q 5 years 07/27/2008 ZOSTER VACCINE (1 of 2) 07/27/2013 INFLUENZA VACCINE (#1) 2023 RSV VACCINE (60+ or ) (1 - 1-dose 75+ series) 07/27/2038 HEPATITIS B VACCINES Aged Out No long er eligible based on patient's age to complete this topic PNEUMOCOCCAL VACCINE 0-49 YEARS Aged Out No longer eligible based on patient's age to complete this topic Insurance DISABILITY DETERMINATION
--- OUTSIDE RECORDS SUMMARY | 2024-08-02 13:14 | XMS_ITS | Encounter Summary ---
Author Organization [employer] Address [address] [place] [address] Care Team Providers Care Peanut Grader Name Role Phone Unavailable Primary Care Provider Unavailabl e Encounter Details Date Type Department Care Team (Late st Contact Info) Description 05/23/2022 Lab Requisition [facility] Laboratory Services [address] [place] [address] Rowdy Cook, FRIEDA [address] [facility] [address] [place] [address] Social History Tobacco Use Types Packs/Day Years Used Date Smoking Tobacco: Never Assessed Sex and Gender Information Value Date Recorded Sex Assigned at Not on file Legal Sex Male 7:03 AM ELECTRICAL ENGINEERING DIRECTOR Gender Identity Not on file Sexual Orientation Not on file documented as of this encounter Plan of Treatment Not on file documented as of this encounter Procedures Procedure Name Priority Date/Time Associated Diagnosis Comments TROPONIN Stat 05/23/2022 12:18 AM ELECTRICAL ENGINEERING DIRECTOR BRAIN NATRIURETIC PEPTIDE, BNP OR PROBNP Stat 05/23/2022 12:18 AM ELECTRICAL ENGINEERING DIRECTOR documented in this encounter Results * (ABNORMAL) BRAIN NATRIURETIC PEPTIDE, BNP OR PROBNP (05/23/2022 12:18 AM ELECTRICAL ENGINEERING DIRECTOR) PROBNP, N TERMINAL 2,745(H) 0 - 125 pg/mL 05/23/2022 1:10 AM ELECTRICAL ENGINEERING DIRECTOR [facility] Blood Collection / Unknown 05/23/2022 12:18 AM ELECTRICAL ENGINEERING DIRECTOR 05/23/2022 12:52 AM ELECTRICAL ENGINEERING DIRECTOR Rowdy Cook SCIENTIFIC INFORMATICS LEADER CHEMISTRY ORDERABLES Fin al Result Performing Organization Address [facility] de Phone Number [facility] [employer] [facility] CLIA # [id number] [address] [place] [address] * (ABNORMAL) TROPONIN (05/23/2022 12:18 AM ELECTRICAL ENGINEERING DIRECTOR) TROPONIN T, 5TH GEN 17(H) <=15 ng/L 05/23/2022 1:08 AM ELECTRICAL ENGINEERING DIRECTOR [facility] [employer] [facility] Blood Collection / Unknown 05/23/2022 12:18 AM ELECTRICAL ENGINEERING DIRECTOR 05/23/2022 12:52 AM ELECTRICAL ENGINEERING DIRECTOR Narrative [facility] [employer] [facility] - 05/23/2022 1:08 AM ELECTRICAL ENGINEERING DIRECTOR Troponin elevated. Rowdy Cook SCIENTIFIC INFORMATICS LEADER CHEMISTRY ORDERABLES Fin al Result Performing Organization Address [facility] Co de Phone Number [facility] [employer] [facility] CLIA # [id number] [address] [place] [address] documented in this encounter Visit Diagnoses Not on filedocumented in this encounter
--- OUTSIDE RECORDS SUMMARY | 2024-08-02 13:14 | XMS_ITS | Encounter Summary ---
Author Organization [employer] Address [address] [place] [address] Care Team Providers Care Cemetery Laborer Name Role Phone Unavailable Primary Care Provider Unavailabl e Encounter Details Date Type Department Care Team (Late st Contact Info) Description 06/12/2022 Lab Requisition [facility] Laboratory Services [address] [place] [address] Rowdy Cook NP [address] [facility] [address] [place] [address] Social History Tobacco Use Types Packs/Day Years Used Date Smoking Tobacco: Never Assessed Sex and Gender Information Value Date Recorded Sex Assigned at Not on file Legal Sex Male 7:03 AM SNOW GROOMER Gender Identity Not on file Sexual Orientation Not on file documented as of this encounter Plan of Treatment Not on file documented as of this encounter Procedures Procedure Name Priority Date/Time Associated Diagnosis Comments VANCOMYCIN LEVEL TROUGH Routine 06/12/2022 3:29 AM SNOW GROOMER documented in this encounter Results * (ABNORMAL) VANCOMYCIN LEVEL TROUGH (06/12/2022 3:29 AM SNOW GROOMER) VANCOMYCIN, TROUGH 17.6(H) 10.0 - 17.0 ug/mL 06/12/2022 6:34 AM SNOW GROOMER [facility] Blood Collection / Unknown 06/12/2022 3:29 AM SNOW GROOMER 06/12/2022 6:14 AM SNOW GROOMER us Rowdy Frandy Joey MORTGAGE OPERATIONS MANAGER CHEMISTRY ORDERABLES Fin al Result [facility] [id number] [facility] [address] [place] [address] documented in this encounter Visit Diagnoses Not on filedocumented in this encounter
--- OUTSIDE RECORDS SUMMARY | 2024-08-02 13:14 | XMS_ITS | Encounter Summary ---
Author Organization [facility] Address [address] [place] [address] Care Team Providers Care Optical Sales Associate Name Role Phone Unavailable Primary Care Provider Unavailabl e Encounter Details Date Type Department Care Team (Late st Contact Info) Description 06/08/2022 Lab Requisition [facility] Laboratory Services [address] [place] [address] Fabiola Mendez PA-C [address] [place] [address] Social History Tobacco Use Types Packs/Day Years Used Date Smoking Tobacco: Never Assessed Sex and Gender Information Value Date Recorded Sex Assigned at Not on file Legal Sex Male 7:03 AM BLOCK CUBER Gender Identity Not on file Sexual Orientation Not on file documented as of this encounter Plan of Treatment Not on file documented as of this encounter Procedures Procedure Name Priority Date/Time Associated Diagnosis Comments VANCOMYCIN LEVEL TROUGH Routine 06/08/2022 11:01 AM BLOCK CUBER documented in this encounter Results * (ABNORMAL) VANCOMYCIN LEVEL TROUGH (06/08/2022 11:01 AM BLOCK CUBER) VANCOMYCIN, TROUGH 18.0(H) 10.0 - 17.0 ug/mL 06/08/2022 1:02 PM BLOCK CUBER [facility] Blood Collection / Unknown 06/08/2022 11:01 AM BLOCK CUBER 06/08/2022 12:46 PM BLOCK CUBER Fabiola Mendez PA-C CHEMISTRY ORDERABLES Final Res ult [facility] # [id number] [address] [address] [place] [address] documented in this encounter Visit Diagnoses Not on filedocumented in this encounter
--- OUTSIDE RECORDS SUMMARY | 2024-08-02 13:14 | XMS_ITS | Encounter Summary ---
Author Organization [facility] Address [address] [place] [address] Care Team Providers Care Aircraft Structural Design Engineer Name Role Phone Unavailable Primary Care Provider Unavailabl e Encounter Details Date Type Department Care Team (Late st Contact Info) Description 05/23/2022 Lab Requisition [facility] Laboratory Services [address] [place] [address] Rowdy Cook, FRIEDA 40[address] [facility] [address] [place] [address] Social History Tobacco Use Types Packs/Day Years Used Date Smoking Tobacco: Never Assessed Sex and Gender Information Value Date Recorded Sex Assigned at Not on file Legal Sex Male 7:03 AM VICE PRESIDENT PHARMACY Gender Identity Not on file Sexual Orientation Not on file documented as of this encounter Plan of Treatment Not on file documented as of this encounter Procedures Procedure Name Priority Date/Time Associated Diagnosis Comments TROPONIN Stat 05/23/2022 2:13 AM VICE PRESIDENT PHARMACY documented in this encounter Results * (ABNORMAL) TROPONIN (05/23/2022 2:13 AM VICE PRESIDENT PHARMACY) TROPONIN T, 5TH GEN 16(H) <=15 ng/L 05/23/2022 3:36 AM VICE PRESIDENT PHARMACY [facility] [employer] [facility] Blood Collection / Unknown 05/23/2022 2:13 AM VICE PRESIDENT PHARMACY 05/23/2022 3:19 AM VICE PRESIDENT PHARMACY Narrative [facility] [employer] [facility] - 05/23/2022 3:36 AM VICE PRESIDENT PHARMACY Troponin elevated. us Rowdy Cook NP CHEMISTRY ORDERABLES Fin al Result Performing Organization Address City/State/[facility] Co de Phone Number [facility] LABORATORY [facility] # [id number] [facility] [place] [address] documented in this encounter Visit Diagnoses Not on filedocumented in this encounter
--- OUTSIDE RECORDS SUMMARY | 2024-08-02 13:14 | XMS_ITS | Encounter Summary ---
Author Organization [employer] Address [address] [place] [address] Care Team Providers Care Veterinary Bacteriologist Name Role Phone Unavailable Primary Care Provider Unavailabl e Encounter Details Date Type Department Care Team (Late st Contact Info) Description 05/30/2022 Lab Requisition [facility] Laboratory Services [address] [place] [address] Rowdy Cook NP [address] [facility] [address] [place] [address] Social History Tobacco Use Types Packs/Day Years Used Date Smoking Tobacco: Never Assessed Sex and Gender Information Value Date Recorded Sex Assigned at Not on file Legal Sex Male 7:03 AM GUN STOCK CHECKER Gender Identity Not on file Sexual Orientation Not on file documented as of this encounter Plan of Treatment Not on file documented as of this encounter Procedures Procedure Name Priority Date/Time Associated Diagnosis Comments VANCOMYCIN LEVEL TROUGH Routine 05/30/2022 3:06 AM GUN STOCK CHECKER documented in this encounter Results * (ABNORMAL) VANCOMYCIN LEVEL TROUGH (05/30/2022 3:06 AM GUN STOCK CHECKER) VANCOMYCIN, TROUGH 17.4(H) 10.0 - 17.0 ug/mL 05/30/2022 5:45 AM GUN STOCK CHECKER [facility] LABORATORY SERVICES [facility] Blood Collection / Unknown 05/30/2022 3:06 AM GUN STOCK CHECKER 05/30/2022 5:13 AM GUN STOCK CHECKER us Rowdy Cook ACTIVITIES COUNSELOR CHEMISTRY ORDERABLES Fin al Result [id number] [address] [place] [address] documented in this encounter Visit Diagnoses Not on filedocumented in this encounter
--- OUTSIDE RECORDS SUMMARY | 2024-08-02 13:14 | XMS_ITS | Encounter Summary ---
Author Organization [employer] Address [address] [place] [address] Care Team Providers Care Screen Printing Supervisor Name Role Phone Unavailable Primary Care Provider Unavailabl e Encounter Details Date Type Department Care Team (Late st Contact Info) Description 05/21/2022 Lab Requisition [facility] Laboratory Services [address] [place] [address] Rowdy Cook, FRIEDA [address] [facility] [address] [place] [address] Social History Tobacco Use Types Packs/Day Years Used Date Smoking Tobacco: Never Assessed Sex and Gender Information Value Date Recorded Sex Assigned at Not on file Legal Sex Male 7:03 AM DELIVERY CREW WORKER Gender Identity Not on file Sexual Orientation Not on file documented as of this encounter Plan of Treatment Not on file documented as of this encounter Procedures Procedure Name Priority Date/Time Associated Diagnosis Comments CBC WITH DIFFERENTIAL Routine 05/21/2022 3:00 AM DELIVERY CREW WORKER VANCOMYCIN LEVEL RANDOM Routine 05/21/2022 3:00 AM DELIVERY CREW WORKER COMPREHENSIVE METABOLIC PANEL Routine 05/21/2022 3:00 AM DELIVERY CREW WORKER documented in this encounter Results * VANCOMYCIN LEVEL RANDOM (05/21/2022 3:00 AM DELIVERY CREW WORKER) VANCOMYCIN, RANDOM 6.1 5.0 - 50.0 ug/mL 05/21/2022 7:36 AM DELIVERY CREW WORKER [facility] TDM LAST DATE, TIME, AMT (VANC) Patient unable to state date. time or dose. 05/21/2022 7:36 AM [facility] LAST DOSE AMT, VANCOMYCIN Unknown/Pat ient unsure 05/21/2022 7:36 AM [facility] Blood Collection / Unknown 05/21/2022 3:00 AM DELIVERY CREW WORKER 05/21/2022 7:07 AM [facility] - 05/21/2022 7:36 AM DELIVERY CREW WORKER Vancomycin Therapeutic Ranges: Vancomycin Trough: 10 - 20 mcg/mL Vancomycin Peak: ?? 25 - 50 mcg/mL us Rowdy Cook NP CHEMISTRY ORDERABLES Fin al Result [facility] CLIA # [id number] [address] [place] [address] * (ABNORMAL) CBC WITH DIFFERENTIAL (05/21/2022 3:00 AM [facility]) [facility] WBC 11.1(H) 4.8 - 10.8 K/uL 05/21/2022 7:17 AM [facility] RBC 3.25(L) 4.60 - 6.20 M/uL 05/21/2022 7:17 AM [facility] HEMOGLOBIN 10.2(L) 14.0 - 18.0 g/dL 05/21/2022 7:17 AM [facility] HEMATOCRIT 31.8(L) 41.0 - 53.0 % 05/21/2022 7:17 AM [facility] MCV 97.8 84.0 - 103.0 fL 05/21/2022 7:17 AM [facility] MCH 31.4 27.0 - 34.0 pg 05/21/2022 7:17 AM [facility] MCHC 32.1 30.0 - 35.0 g/dL 05/21/2022 7:17 AM [facility] RDW 13.9 11.0 - 14.5 % 05/21/2022 7:17 AM [facility] RDW-STDEV 49.5 37.0 - 54.0 fL 05/21/2022 7:17 AM [facility] PLATELETS 221 140 - 440 K/uL 05/21/2022 7:17 AM [facility] MPV 12.5 8.9 - 12.8 fL 05/21/2022 7:17 AM [facility] NEUTROPHILS 67 42 - 75 % 05/21/2022 7:17 AM [facility] LYMPHOCYTES 21(L) 24 - 44 % 05/21/2022 7:17 AM [facility] MONOCYTES 11(H) 2 - 10 % 05/21/2022 7:17 AM [facility] EOSINOPHILS 1 0 - 7 % 05/21/2022 7:17 AM [facility] BASOPHILS 0 0 - 1 % 05/21/2022 7:17 AM [facility] IMMATURE GRANULOCYTES 1 0 - 2 % 05/21/2022 7:17 AM [facility] NEUTROPHIL ABSOLUTE 7.42 2.00 - 8.00 K/uL 05/21/2022 7:17 AM [facility] LYMPHOCYTE ABSOLUTE 2.31 1.20 - 4.00 K/uL 05/21/2022 7:17 AM [facility] MONOCYTE ABSOLUTE 1.24(H) 0.10 - 0.60 K/uL 05/21/2022 7:17 AM [facility] EOSINOPHIL ABSOLUTE 0.07 0.00 - 0.70 K/uL 05/21/2022 7:17 AM [facility] BASOPHILS ABSOLUTE 0.02 0.00 - 0.20 K/uL 05/21/2022 7:17 AM [facility] IMMATURE GRANULOCYTES ABSOLUTE 0.06 0.00 - 0.10 K/uL 05/21/2022 7:17 AM [facility] Blood Collection / Unknown 05/21/2022 3:00 AM [facility] 05/21/2022 7:07 AM DELIVERY CREW WORKER us Rowdy Cook LEATHER CASE FINISHER HEMATOLOGY ORDERABLES Fi nal Result [facility]ENG # [id number] [address] [facility] [place] [place] [address] * (ABNORMAL) COMPREHENSIVE METABOLIC PANEL (05/21/2022 3:00 AM DELIVERY CREW WORKER) Pathologist [facility] SODIUM 141 136 - 145 mmol/L 05/21/2022 7:36 AM [facility] POTASSIUM 3.7 3.5 - 5.1 mmol/L 05/21/2022 7:36 AM [facility] Comment:Slightly hemolyzed. Result may be falsely elevated. CHLORIDE 106 98 - 107 mmol/L 05/21/2022 7:36 AM [facility] CO2 26 22 - 29 mmol/L 05/21/2022 7:36 AM [facility] CALCIUM 8.8 8.6 - 10.0 mg/dL 05/21/2022 7:36 AM [facility] BUN 7 6 - 20 mg/dL 05/21/2022 7:36 AM [facility] CREATININE 0.55(L) 0.67 - 1.17 mg/dL 05/21/2022 7:36 AM [facility] GLUCOSE 94 74 - 99 mg/dL 05/21/2022 7:36 AM [facility] TOTAL PROTEIN 7.4 6.4 - 8.3 g/dL 05/21/2022 7:36 AM [facility] ALBUMIN 2.9(L) 3.5 - 5.2 g/dL 05/21/2022 7:36 AM [facility] BILIRUBIN TOTAL 0.5 0.2 - 1.0 mg/dL 05/21/2022 7:36 AM [facility] ALKALINE PHOSPHATASE 199(H) 40 - 129 U/L 05/21/2022 7:36 AM [facility] AST 74(H) 10 - 50 U/L 05/21/2022 7:36 AM DELIVERY CREW WORKER [facility] Comment:Hemolysis present. R esult may be falsely elevated. ALT 46 <=50 U/L 05/21/2022 7:36 AM DELIVERY CREW WORKER [facility] Comment:Hemolysis present. R esult may be falsely elevated. GFR >60 >=60 mL/min/1. 73 sq meter 05/21/2022 7:36 AM DELIVERY CREW WORKER [facility] Comment:eGFR calculated with 2020 CKD-EPI equation. Vegetarian diet, extremely high or low muscle mass, and may affect results. Cystatin C with Glomerular Filtration Rate is a suitable alternative for these patients. ANION GAP 9 9 - 20 mmol/L 05/21/2022 7:36 AM DELIVERY CREW WORKER [facility] Blood Collection / Unknown 05/21/2022 3:00 AM DELIVERY CREW WORKER 05/21/2022 7:07 AM DELIVERY CREW WORKER us Rowdy Cook NP CHEMISTRY ORDERABLES Fin al Result [facility] CLIA # [id number] [address] [place] [address] documented in this encounter Visit Diagnoses Not on filedocumented in this encounter
--- OUTSIDE RECORDS SUMMARY | 2024-08-02 13:14 | XMS_ITS | Encounter Summary ---
Author Organization [employer] Address [address] [place] [address] Care Team Providers Care Auto Body Straightener Name Role Phone Unavailable Primary Care Provider Unavailabl e Encounter Details Date Type Department Care Team (Late st Contact Info) Description 06/17/2022 Lab Requisition [facility] Laboratory Services [address] [place] [address] Rowdy Cook NP [address] [facility] [address] [place] [address] Social History Tobacco Use Types Packs/Day Years Used Date Smoking Tobacco: Never Assessed Sex and Gender Information Value Date Recorded Sex Assigned at Not on file Legal Sex Male 7:03 AM WHARF ATTENDANT Gender Identity Not on file Sexual Orientation Not on file documented as of this encounter Plan of Treatment Not on file documented as of this encounter Procedures Procedure Name Priority Date/Time Associated Diagnosis Comments VANCOMYCIN LEVEL TROUGH Routine 06/17/2022 3:10 AM WHARF ATTENDANT documented in this encounter Results * (ABNORMAL) VANCOMYCIN LEVEL TROUGH (06/17/2022 3:10 AM WHARF ATTENDANT) VANCOMYCIN, TROUGH 19.8(H) 10.0 - 17.0 ug/mL 06/17/2022 5:53 AM WHARF ATTENDANT [facility]ORAT[facility] SERVICES [facility] Blood Collection / Unknown 06/17/2022 3:10 AM WHARF ATTENDANT 06/17/2022 5:18 AM WHARF ATTENDANT us Rowdy Cook IRRIGATION SUPERVISOR CHEMISTRY ORDERABLES Fin al Result [id number] [facility] [address] [place] [address] documented in this encounter Visit Diagnoses Not on filedocumented in this encounter
--- OUTSIDE RECORDS SUMMARY | 2024-08-02 13:14 | XMS_ITS | Encounter Summary ---
Author Organization [facility] Address [address] [place] [address] Care Team Providers Care Principal Embedded Software Engineer Name Role Phone Unavailable Primary Care Provider Unavailabl e Encounter Details Date Type Department Care Team (Late st Contact Info) Description 06/02/2022 Lab Requisition [facility] Laboratory Services [address] [place] [address] Fabiola Mendez PA-C [address] [place] [address] Social History Tobacco Use Types Packs/Day Years Used Date Smoking Tobacco: Never Assessed Sex and Gender Information Value Date Recorded Sex Assigned at Not on file Legal Sex Male 7:03 AM CORPORATION LAWYER Gender Identity Not on file Sexual Orientation Not on file documented as of this encounter Plan of Treatment Not on file documented as of this encounter Procedures Procedure Name Priority Date/Time Associated Diagnosis Comments CBC WITH DIFFERENTIAL Routine 06/02/2022 3:30 AM CORPORATION LAWYER COMPREHENSIVE METABOLIC PANEL Routine 06/02/2022 3:30 AM CORPORATION LAWYER documented in this encounter Results * (ABNORMAL) CBC WITH DIFFERENTIAL (06/02/2022 3:30 AM CORPORATION LAWYER) WBC 9.0 4.8 - 10.8 K/uL 06/02/2022 5:46 AM CORPORATION LAWYER [facility] LABORAT[facility] RBC 4.00(L) 4.60 - 6.20 M/uL 06/02/2022 5:46 AM CORPORATION LAWYER [facility] LABORATORY [facility] HEMOGLOBIN 12.2(L) 14.0 - 18.0 g/dL 06/02/2022 5:46 AM [facility] HEMATOCRIT 37.9(L) 41.0 - 53.0 % 06/02/2022 5:46 AM [facility] MCV 94.8 84.0 - 103.0 fL 06/02/2022 5:46 AM [facility] MCH 30.5 27.0 - 34.0 pg 06/02/2022 5:46 AM [facility] MCHC 32.2 30.0 - 35.0 g/dL 06/02/2022 5:46 AM [facility] RDW 13.8 11.0 - 14.5 % 06/02/2022 5:46 AM [facility] RDW-STDEV 47.9 37.0 - 54.0 fL 06/02/2022 5:46 AM [facility] PLATELETS 304 140 - 440 K/uL 06/02/2022 5:46 AM [facility] MPV 10.9 8.9 - 12.8 fL 06/02/2022 5:46 AM [facility] NEUTROPHILS 68 42 - 75 % 06/02/2022 5:46 AM [facility] LYMPHOCYTES 20(L) 24 - 44 % 06/02/2022 5:46 AM [facility] MONOCYTES 10 2 - 10 % 06/02/2022 5:46 AM [facility] EOSINOPHILS 2 0 - 7 % 06/02/2022 5:46 AM [facility] BASOPHILS 0 0 - 1 % 06/02/2022 5:46 AM [facility] IMMATURE GRANULOCYTES 0 0 - 2 % 06/02/2022 5:46 AM [facility] NEUTROPHIL ABSOLUTE 6.06 2.00 - 8.00 K/uL 06/02/2022 5:46 AM [facility] LYMPHOCYTE ABSOLUTE 1.79 1.20 - 4.00 K/uL 06/02/2022 5:46 AM [facility] MONOCYTE ABSOLUTE 0.89(H) 0.10 - 0.60 K/uL 06/02/2022 5:46 AM [facility] EOSINOPHIL ABSOLUTE 0.16 0.00 - 0.70 K/uL 06/02/2022 5:46 AM [facility] BASOPHILS ABSOLUTE 0.02 0.00 - 0.20 K/uL 06/02/2022 5:46 AM [facility] IMMATURE GRANULOCYTES ABSOLUTE 0.04 0.00 - 0.10 K/uL 06/02/2022 5:46 AM [facility] Blood Collection / Unknown 06/02/2022 3:30 AM CORPORATION LAWYER 06/02/2022 5:37 AM CORPORATION LAWYER Fabiola Mendez PA-C HEMATOLOGY ORDERABLES Final Re sult [facility] CLIA # [id number] [address] [place] [address] * (ABNORMAL) COMPREHENSIVE METABOLIC PANEL (06/02/2022 3:30 AM CORPORATION LAWYER) SODIUM 139 136 - 145 mmol/L 06/02/2022 5:55 AM [facility] POTASSIUM 3.9 3.5 - 5.1 mmol/L 06/02/2022 5:55 AM [facility] CHLORIDE 105 98 - 107 mmol/L 06/02/2022 5:55 AM [facility] CO2 24 22 - 29 mmol/L 06/02/2022 5:55 AM [facility] CALCIUM 9.6 8.6 - 10.0 mg/dL 06/02/2022 5:55 AM [facility] BUN 14 6 - 20 mg/dL 06/02/2022 5:55 AM [facility] CREATININE 0.69 0.67 - 1.17 mg/dL 06/02/2022 5:55 AM [facility] GLUCOSE 128(H) 74 - 99 mg/dL 06/02/2022 5:55 AM [facility] TOTAL PROTEIN 8.2 6.4 - 8.3 g/dL 06/02/2022 5:55 AM [facility] ALBUMIN 3.4(L) 3.5 - 5.2 g/dL 06/02/2022 5:55 AM [facility] BILIRUBIN TOTAL 0.3 0.2 - 1.0 mg/dL 06/02/2022 5:55 AM [facility] ALKALINE PHOSPHATASE 173(H) 40 - 129 U/L 06/02/2022 5:55 AM [facility] AST 71(H) 10 - 50 U/L 06/02/2022 5:55 AM [facility] ALT 66(H) <=50 U/L 06/02/2022 5:55 AM [facility] GFR >60 >=60 mL/min/1.7 3 sq meter 06/02/2022 5:55 AM [facility] Comment:eGFR calculated with 2020 CKD-EPI equation. Vegetarian diet, extremely high or low muscle mass, and may affect results. Cystatin C with Glomerular Filtration Rate is a suitable alternative for these patients. ANION GAP 10 9 - 20 mmol/L 06/02/2022 5:55 AM [facility] Blood Collection / Unknown 06/02/2022 3:30 AM CORPORATION LAWYER 06/02/2022 5:38 AM CORPORATION LAWYER Fabiola Mendez PA-C CHEMISTRY ORDERABLES Final Res ult [facility] CLIA # [id number] [address] [place] [address] documented in this encounter Visit Diagnoses Not on filedocumented in this encounter
--- OUTSIDE RECORDS SUMMARY | 2024-08-02 13:14 | XMS_ITS | Encounter Summary ---
Author Organization [facility] Address [address] [place] [address] Care Team Providers Care Caretaker Name Role Phone Unavailable Primary Care Provider Unavailabl e Encounter Details Date Type Department Care Team (Late st Contact Info) Description 05/24/2022 Lab Requisition [facility] Laboratory Services [address] [place] [phone] Sunday Salcido MD NO ADDRESS ON FILE Social History Tobacco Use Types Packs/Day Years Used Date Smoking Tobacco: Never Assessed Sex and Gender Information Value Date Recorded Sex Assigned at Not on file Legal Sex Male 7:03 AM RADIOLOGIC TECHNOLOGIST MAMMOGRAM Gender Identity Not on file Sexual Orientation Not on file documented as of this encounter Plan of Treatment Not on file documented as of this encounter Procedures Procedure Name Priority Date/Time Associated Diagnosis Comments VANCOMYCIN LEVEL TROUGH Routine 05/24/2022 3:20 AM RADIOLOGIC TECHNOLOGIST MAMMOGRAM documented in this encounter Results * (ABNORMAL) VANCOMYCIN LEVEL TROUGH (05/24/2022 3:20 AM RADIOLOGIC TECHNOLOGIST MAMMOGRAM) VANCOMYCIN, TROUGH 18.3(H) 10.0 - 17.0 ug/mL 05/24/2022 6:27 AM RADIOLOGIC TECHNOLOGIST MAMMOGRAM [facility] [employer] [facility] Blood Collection / Unknown 05/24/2022 3:20 AM RADIOLOGIC TECHNOLOGIST MAMMOGRAM 05/24/2022 6:08 AM RADIOLOGIC TECHNOLOGIST MAMMOGRAM us Sunday Salcido MD CHEMISTRY ORDERABLES F inal Result [facility] [employer] [facility] CLIA # [id number] [address] [place] [address] documented in this encounter Visit Diagnoses Not on filedocumented in this encounter
--- OUTSIDE RECORDS SUMMARY | 2024-08-02 13:14 | XMS_ITS | Encounter Summary ---
Author Organization [facility] Address [address] [place] [address] Care Team Providers Care Imaging Center Manager Name Role Phone Unavailable Primary Care Provider Unavailabl e Encounter Details Date Type Department Care Team (Late st Contact Info) Description 06/11/2022 Lab Requisition [facility] Laboratory Services [address] [place] [address] Lesa Armstrong MD [address] [place] [address] Social History Tobacco Use Types Packs/Day Years Used Date Smoking Tobacco: Never Assessed Sex and Gender Information Value Date Recorded Sex Assigned at Not on file Legal Sex Male 7:03 AM OPERATIONS SPECIALISTS Gender Identity Not on file Sexual Orientation Not on file documented as of this encounter Plan of Treatment Not on file documented as of this encounter Procedures Procedure Name Priority Date/Time Associated Diagnosis Comments CBC WITH DIFFERENTIAL Stat 06/11/2022 3:53 AM [facility] COMPREHENSIVE METABOLIC PANEL Stat 06/11/2022 3:53 AM [facility] documented in this encounter Results * (ABNORMAL) CBC WITH DIFFERENTIAL (06/11/2022 3:53 AM [facility]) WBC 7.5 4.8 - 10.8 K/uL 06/11/2022 5:56 AM [facility]PER[facility] SPECIALISTS [facility] LABORATORY [facility] RBC 4.00(L) 4.60 - 6.20 M/uL 06/11/2022 5:56 AM [facility]ISTS [facility] LABORATORY [facility] HEMOGLOBIN 12.8(L) 14.0 - 18.0 g/dL 06/11/2022 5:56 AM [facility] NMT Medical [facility] HEMATOCRIT 37.9(L) 41.0 - 53.0 % 06/11/2022 5:56 AM [facility] NMT Medical [facility] MCV 94.8 84.0 - 103.0 fL 06/11/2022 5:56 AM [facility] NMT Medical [facility] MCH 32.0 27.0 - 34.0 pg 06/11/2022 5:56 AM [facility] NMT Medical [facility] MCHC 33.8 30.0 - 35.0 g/dL 06/11/2022 5:56 AM [facility] NMT Medical [facility] RDW 13.3 11.0 - 14.5 % 06/11/2022 5:56 AM [facility] NMT Medical [facility] RDW-STDEV 46.5 37.0 - 54.0 fL 06/11/2022 5:56 AM [facility] PLATELETS 252 140 - 440 K/uL 06/11/2022 5:56 AM [facility] NMT Medical [facility] MPV 11.4 8.9 - 12.8 fL 06/11/2022 5:56 AM [facility] NEUTROPHILS 52 42 - 75 % 06/11/2022 5:56 AM [facility] LYMPHOCYTES 32 24 - 44 % 06/11/2022 5:56 AM [facility] MONOCYTES 12(H) 2 - 10 % 06/11/2022 5:56 AM [facility] NMT Medical [facility] EOSINOPHILS 3 0 - 7 % 06/11/2022 5:56 AM [facility] NMT Medical [facility] BASOPHILS 0 0 - 1 % 06/11/2022 5:56 AM [facility] NMT Medical [facility] IMMATURE GRANULOCYTES 0 0 - 2 % 06/11/2022 5:56 AM [facility] NMT Medical [facility] NEUTROPHIL ABSOLUTE 3.95 2.00 - 8.00 K/uL 06/11/2022 5:56 AM [facility] LYMPHOCYTE ABSOLUTE 2.39 1.20 - 4.00 K/uL 06/11/2022 5:56 AM [facility] NMT Medical [facility] MONOCYTE ABSOLUTE 0.92(H) 0.10 - 0.60 K/uL 06/11/2022 5:56 AM [facility] EOSINOPHIL ABSOLUTE 0.24 0.00 - 0.70 K/uL 06/11/2022 5:56 AM [facility] BASOPHILS ABSOLUTE 0.02 0.00 - 0.20 K/uL 06/11/2022 5:56 AM [facility] IMMATURE GRANULOCYTES ABSOLUTE 0.02 0.00 - 0.10 K/uL 06/11/2022 5:56 AM [facility] Blood Collection / Unknown 06/11/2022 3:53 AM [facility] 06/11/2022 5:52 AM [facility] us Lesa Armstrong MD HEMATOLOGY ORDERABLES Final Resu lt [facility] CLIA # [id number] [address] [place] [id number] * (ABNORMAL) COMPREHENSIVE METABOLIC PANEL (06/11/2022 3:[address] [facility]) SODIUM 142 136 - 145 mmol/L 06/11/2022 6:22 AM [facility] POTASSIUM 4.1 3.5 - 5.1 mmol/L 06/11/2022 6:22 AM [facility] CHLORIDE 107 98 - 107 mmol/L 06/11/2022 6:22 AM [facility] CO2 23 22 - 29 mmol/L 06/11/2022 6:22 AM [facility] CALCIUM 9.6 8.6 - 10.0 mg/dL 06/11/2022 6:22 AM [facility] BUN 12 6 - 20 mg/dL 06/11/2022 6:22 AM [facility] CREATININE 0.64(L) 0.67 - 1.17 mg/dL 06/11/2022 6:22 AM [facility] GLUCOSE 99 74 - 99 mg/dL 06/11/2022 6:22 AM [facility] TOTAL PROTEIN 8.0 6.4 - 8.3 g/dL 06/11/2022 6:22 AM [facility] ALBUMIN 3.6 3.5 - 5.2 g/dL 06/11/2022 6:22 AM [facility] BILIRUBIN TOTAL 0.3 0.2 - 1.0 mg/dL 06/11/2022 6:22 AM [facility] ALKALINE PHOSPHATASE 169(H) 40 - 129 U/L 06/11/2022 6:22 AM [facility] AST 64(H) 10 - 50 U/L 06/11/2022 6:22 AM [facility] ALT 83(H) <=50 U/L 06/11/2022 6:22 AM [facility] GFR >60 >=60 mL/min/1. 73 sq meter 06/11/2022 6:22 AM [facility] Comment:eGFR calculated with 2020 CKD-EPI equation. Vegetarian diet, extremely high or low muscle mass, and may affect results. Cystatin C with Glomerular Filtration Rate is a suitable alternative for these patients. ANION GAP 12 9 - 20 mmol/L 06/11/2022 6:22 AM [facility] Blood Collection / Unknown 06/11/2022 3:53 AM [facility] 06/11/2022 5:52 AM [facility] us Lesa Armstrong MD CHEMISTRY ORDERABLES Final Resul t [facility] CLIA # [id number] [address] [address] [place] [address] documented in this encounter Visit Diagnoses Not on filedocumented in this encounter
--- OUTSIDE RECORDS SUMMARY | 2024-08-02 13:14 | XMS_ITS | Encounter Summary ---
Author Organization [facility] Address [address] [place] [address] Care Team Providers Care Adobe Layer Helper Name Role Phone Unavailable Primary Care Provider Unavailabl e Encounter Details Date Type Department Care Team (Late st Contact Info) Description 06/04/2022 Lab Requisition [facility] Laboratory Services [address] [place] [address] Fabiola Mendez PA-C [address] [place] [address] Social History Tobacco Use Types Packs/Day Years Used Date Smoking Tobacco: Never Assessed Sex and Gender Information Value Date Recorded Sex Assigned at Not on file Legal Sex Male 7:03 AM BLANKBOOK STITCHING MACHINE OPERATOR Gender Identity Not on file Sexual Orientation Not on file documented as of this encounter Plan of Treatment Not on file documented as of this encounter Procedures Procedure Name Priority Date/Time Associated Diagnosis Comments CBC WITH DIFFERENTIAL Routine 06/04/2022 2:45 AM BLANKBOOK STITCHING MACHINE OPERATOR COMPREHENSIVE METABOLIC PANEL Routine 06/04/2022 2:45 AM BLANKBOOK STITCHING MACHINE OPERATOR documented in this encounter Results * (ABNORMAL) CBC WITH DIFFERENTIAL (06/04/2022 2:45 AM BLANKBOOK STITCHING MACHINE OPERATOR) WBC 8.3 4.8 - 10.8 K/uL 06/04/2022 6:36 AM BLANKBOOK STITCHING MACHINE OPERATOR [facility] LABORATORY [facility] RBC 4.13(L) 4.60 - 6.20 M/uL 06/04/2022 6:36 AM BLANKBOOK STITCHING MACHINE OPERATOR [facility] LABORATORY [facility] HEMOGLOBIN 12.8(L) 14.0 - 18.0 g/dL 06/04/2022 6:36 AM [facility] HEMATOCRIT 39.5(L) 41.0 - 53.0 % 06/04/2022 6:36 AM [facility] MCV 95.6 84.0 - 103.0 fL 06/04/2022 6:36 AM [facility] MCH 31.0 27.0 - 34.0 pg 06/04/2022 6:36 AM [facility] MCHC 32.4 30.0 - 35.0 g/dL 06/04/2022 6:36 AM [facility] RDW 13.6 11.0 - 14.5 % 06/04/2022 6:36 AM [facility] RDW-STDEV 47.7 37.0 - 54.0 fL 06/04/2022 6:36 AM [facility] PLATELETS 277 140 - 440 K/uL 06/04/2022 6:36 AM [facility] MPV 11.6 8.9 - 12.8 fL 06/04/2022 6:36 AM [facility] NEUTROPHILS 63 42 - 75 % 06/04/2022 6:36 AM [facility] LYMPHOCYTES 25 24 - 44 % 06/04/2022 6:36 AM [facility] MONOCYTES 10 2 - 10 % 06/04/2022 6:36 AM [facility] EOSINOPHILS 2 0 - 7 % 06/04/2022 6:36 AM [facility] BASOPHILS 0 0 - 1 % 06/04/2022 6:36 AM [facility] IMMATURE GRANULOCYTES 0 0 - 2 % 06/04/2022 6:36 AM [facility] NEUTROPHIL ABSOLUTE 5.24 2.00 - 8.00 K/uL 06/04/2022 6:36 AM [facility] LYMPHOCYTE ABSOLUTE 2.05 1.20 - 4.00 K/uL 06/04/2022 6:36 AM [facility] MONOCYTE ABSOLUTE 0.81(H) 0.10 - 0.60 K/uL 06/04/2022 6:36 AM [facility] EOSINOPHIL ABSOLUTE 0.16 0.00 - 0.70 K/uL 06/04/2022 6:36 AM [facility] BASOPHILS ABSOLUTE 0.02 0.00 - 0.20 K/uL 06/04/2022 6:36 AM [facility] IMMATURE GRANULOCYTES ABSOLUTE 0.03 0.00 - 0.10 K/uL 06/04/2022 6:36 AM [facility] Blood Collection / Unknown 06/04/2022 2:45 AM BLANKBOOK STITCHING MACHINE OPERATOR 06/04/2022 6:32 AM BLANKBOOK STITCHING MACHINE OPERATOR us Fabiola Mendez PA-C HEMATOLOGY ORDERABLES Final [id number] [address] [place] [address] * (ABNORMAL) COMPREHENSIVE METABOLIC PANEL (06/04/2022 2:45 AM BLANKBOOK STITCHING MACHINE OPERATOR) SODIUM 139 136 - 145 mmol/L 06/04/2022 6:47 AM [facility] POTASSIUM 4.1 3.5 - 5.1 mmol/L 06/04/2022 6:47 AM [facility] CHLORIDE 106 98 - 107 mmol/L 06/04/2022 6:47 AM [facility] CO2 23 22 - 29 mmol/L 06/04/2022 6:47 AM [facility] CALCIUM 9.6 8.6 - 10.0 mg/dL 06/04/2022 6:47 AM [facility] BUN 14 6 - 20 mg/dL 06/04/2022 6:47 AM [facility] CREATININE 0.59(L) 0.67 - 1.17 mg/dL 06/04/2022 6:47 AM [facility] GLUCOSE 176(H) 74 - 99 mg/dL 06/04/2022 6:47 AM [facility] TOTAL PROTEIN 7.9 6.4 - 8.3 g/dL 06/04/2022 6:47 AM [facility] ALBUMIN 3.6 3.5 - 5.2 g/dL 06/04/2022 6:47 AM [facility] BILIRUBIN TOTAL 0.3 0.2 - 1.0 mg/dL 06/04/2022 6:47 AM [facility] ALKALINE PHOSPHATASE 161(H) 40 - 129 U/L 06/04/2022 6:47 AM [facility] AST 71(H) 10 - 50 U/L 06/04/2022 6:47 AM [facility] ALT 77(H) <=50 U/L 06/04/2022 6:47 AM [facility] GFR >60 >=60 mL/min/1. 73 sq meter 06/04/2022 6:47 AM [facility] Comment:eGFR calculated with 2020 CKD-EPI equation. Vegetarian diet, extremely high or low muscle mass, and may affect results. Cystatin C with Glomerular Filtration Rate is a suitable alternative for these patients. 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
--- OUTSIDE RECORDS SUMMARY | 2024-08-02 13:14 | XMS_ITS | Encounter Summary ---
Author Organization [facility] Address [address] [place] [address] Care Team Providers Care Licensed Occupational Therapy Assistant Name Role Phone Unavailable Primary Care Provider Unavailabl e Encounter Details Date Type Department Care Team (Late st Contact Info) Description 06/18/2022 Lab Requisition [facility] Laboratory Services [address] [place] [address] Fabiola Mendez PA-C [address] [place] [address] Social History Tobacco Use Types Packs/Day Years Used Date Smoking Tobacco: Never Assessed Sex and Gender Information Value Date Recorded Sex Assigned at Not on file Legal Sex Male 7:03 AM ENDLESS BED DRUM SANDER Gender Identity Not on file Sexual Orientation Not on file documented as of this encounter Plan of Treatment Not on file documented as of this encounter Procedures Procedure Name Priority Date/Time Associated Diagnosis Comments CBC WITH DIFFERENTIAL Routine 06/18/2022 3:35 AM ENDLESS BED DRUM SANDER COMPREHENSIVE METABOLIC PANEL Routine 06/18/2022 3:35 AM ENDLESS BED DRUM SANDER documented in this encounter Results * (ABNORMAL) CBC WITH DIFFERENTIAL (06/18/2022 3:35 AM ENDLESS BED DRUM SANDER) WBC 8.9 4.8 - 10.8 K/uL 06/18/2022 6:45 AM ENDLESS BED DRUM SANDER [facility] LABORATORY [facility] RBC 4.14(L) 4.60 - 6.20 M/uL 06/18/2022 6:45 AM ENDLESS BED DRUM SANDER [facility] LABORATORY [facility] HEMOGLOBIN 13.2(L) 14.0 - 18.0 g/dL 06/18/2022 6:45 AM [facility] [employer] [facility] HEMATOCRIT 38.5(L) 41.0 - 53.0 % 06/18/2022 6:45 AM [facility] [employer] [facility] MCV 93.0 84.0 - 103.0 fL 06/18/2022 6:45 AM [facility] MCH 31.9 27.0 - 34.0 pg 06/18/2022 6:45 AM [facility] [employer] [facility] MCHC 34.3 30.0 - 35.0 g/dL 06/18/2022 6:45 AM [facility] [employer] [facility] RDW 12.9 11.0 - 14.5 % 06/18/2022 6:45 AM [facility] [employer] [facility] RDW-STDEV 44.3 37.0 - 54.0 fL 06/18/2022 6:45 AM [facility] [employer] [facility] PLATELETS 237 140 - 440 K/uL 06/18/2022 6:45 AM [facility] [employer] [facility] MPV 11.5 8.9 - 12.8 fL 06/18/2022 6:45 AM [facility] [employer] [facility] NEUTROPHILS 63 42 - 75 % 06/18/2022 6:45 AM [facility] LYMPHOCYTES 25 24 - 44 % 06/18/2022 6:45 AM [facility] [employer] [facility] MONOCYTES 10 2 - 10 % 06/18/2022 6:45 AM [facility] [employer] [facility] EOSINOPHILS 2 0 - 7 % 06/18/2022 6:45 AM [facility] [employer] [facility] BASOPHILS 0 0 - 1 % 06/18/2022 6:45 AM [facility] [employer] [facility] IMMATURE GRANULOCYTES 0 0 - 2 % 06/18/2022 6:45 AM [facility] [employer] [facility] NEUTROPHIL ABSOLUTE 5.57 2.00 - 8.00 K/uL 06/18/2022 6:45 AM [facility] [employer] [facility] LYMPHOCYTE ABSOLUTE 2.19 1.20 - 4.00 K/uL 06/18/2022 6:45 AM [facility] [employer] [facility] MONOCYTE ABSOLUTE 0.93(H) 0.10 - 0.60 K/uL 06/18/2022 6:45 AM [facility] EOSINOPHIL ABSOLUTE 0.16 0.00 - 0.70 K/uL 06/18/2022 6:45 AM [facility] BASOPHILS ABSOLUTE 0.02 0.00 - 0.20 K/uL 06/18/2022 6:45 AM [facility] IMMATURE GRANULOCYTES ABSOLUTE 0.04 0.00 - 0.10 K/uL 06/18/2022 6:45 AM [facility] Blood Collection / Unknown 06/18/2022 3:35 AM ENDLESS BED DRUM SANDER 06/18/2022 6:31 AM ENDLESS BED DRUM SANDER us Fabiola Mendez PA-C HEMATOLOGY ORDERABLES Final Re sult [facility] # [id number] [address] [place] [address] * (ABNORMAL) COMPREHENSIVE METABOLIC PANEL (06/18/2022 3:35 AM ENDLESS BED DRUM SANDER) SODIUM 140 136 - 145 mmol/L 06/18/2022 6:57 AM [facility] POTASSIUM 4.1 3.5 - 5.1 mmol/L 06/18/2022 6:57 AM [facility] CHLORIDE 107 98 - 107 mmol/L 06/18/2022 6:57 AM [facility] CO2 23 22 - 29 mmol/L 06/18/2022 6:57 AM [facility] CALCIUM 9.9 8.6 - 10.0 mg/dL 06/18/2022 6:57 AM [facility] BUN 13 6 - 20 mg/dL 06/18/2022 6:57 AM [facility] CREATININE 0.74 0.67 - 1.17 mg/dL 06/18/2022 6:57 AM [facility] GLUCOSE 186(H) 74 - 99 mg/dL 06/18/2022 6:57 AM [facility] TOTAL PROTEIN 8.1 6.4 - 8.3 g/dL 06/18/2022 6:57 AM [facility] ALBUMIN 3.9 3.5 - 5.2 g/dL 06/18/2022 6:57 AM [facility] BILIRUBIN TOTAL 0.3 0.2 - 1.0 mg/dL 06/18/2022 6:57 AM [facility] ALKALINE PHOSPHATASE 153(H) 40 - 129 U/L 06/18/2022 6:57 AM [facility] AST 55(H) 10 - 50 U/L 06/18/2022 6:57 AM [facility] ALT 66(H) <=50 U/L 06/18/2022 6:57 AM [facility] GFR >60 >=60 mL/min/1.7 3 sq meter 06/18/2022 6:57 AM [facility] Comment:eGFR calculated with 2020 CKD-EPI equation. Vegetarian diet, extremely high or low muscle mass, and may affect results. Cystatin C with Glomerular Filtration Rate is a suitable alternative for these patients. ANION GAP 10 9 - 20 mmol/L 06/18/2022 6:57 AM [facility] Blood Collection / Unknown 06/18/2022 3:35 AM ENDLESS BED DRUM SANDER 06/18/2022 6:33 AM ENDLESS BED DRUM SANDER Fabiola Mendez PA-C CHEMISTRY ORDERABLES Final Res ult [facility] CLIA # [id number] [address] [id number] documented in this encounter Visit Diagnoses Not on filedocumented in this encounter
--- OUTSIDE RECORDS SUMMARY | 2024-08-02 13:14 | XMS_ITS | Encounter Summary ---
Author Organization [facility] Address [address] [place] [address] Care Team Providers Care Field Research Assistant Name Role Phone Unavailable Primary Care Provider Unavailabl e Encounter Details Date Type Department Care Team (Late st Contact Info) Description 06/08/[address] [facility] Laboratory Services [address] [place] [address] Fabiola Mendez PA-C [address] [place] [address] Social History Tobacco Use Types Packs/Day Years Used Date Smoking Tobacco: Never Assessed Sex and Gender Information Value Date Recorded Sex Assigned at Not on file Legal Sex Male 7:03 AM INSTALLER Gender Identity Not on file Sexual Orientation Not on file documented as of this encounter Plan of Treatment Not on file documented as of this encounter Procedures Procedure Name Priority Date/Time Associated Diagnosis Comments CBC WITH DIFFERENTIAL Routine 06/08/2022 12:00 AM INSTALLER COMPREHENSIVE METABOLIC PANEL Routine 06/08/2022 12:00 AM INSTALLER documented in this encounter Results * (ABNORMAL) CBC WITH DIFFERENTIAL (06/08/2022 12:00 AM INSTALLER) WBC 8.5 4.8 - 10.8 K/uL 06/08/2022 5:55 AM INSTALLER [facility] LABORATORY [facility] RBC 3.83(L) 4.60 - 6.20 M/uL 06/08/2022 5:55 AM INSTALLER [facility] LABOR[facility] HEMOGLOBIN 12.0(L) 14.0 - 18.0 g/dL 06/08/2022 5:55 AM [facility] HEMATOCRIT 38.2(L) 41.0 - 53.0 % 06/08/2022 5:55 AM [facility] MCV 99.7 84.0 - 103.0 fL 06/08/2022 5:55 AM [facility] MCH 31.3 27.0 - 34.0 pg 06/08/2022 5:55 AM [facility] MCHC 31.4 30.0 - 35.0 g/dL 06/08/2022 5:55 AM [facility] RDW 13.4 11.0 - 14.5 % 06/08/2022 5:55 AM [facility] RDW-STDEV 49.5 37.0 - 54.0 fL 06/08/2022 5:55 AM [facility] PLATELETS 215 140 - 440 K/uL 06/08/2022 5:55 AM [facility] MPV 12.3 8.9 - 12.8 fL 06/08/2022 5:55 AM [facility] NEUTROPHILS 54 42 - 75 % 06/08/2022 5:55 AM [facility] LYMPHOCYTES 32 24 - 44 % 06/08/2022 5:55 AM [facility] MONOCYTES 11(H) 2 - 10 % 06/08/2022 5:55 AM [facility] EOSINOPHILS 2 0 - 7 % 06/08/2022 5:55 AM [facility] BASOPHILS 0 0 - 1 % 06/08/2022 5:55 AM [facility] IMMATURE GRANULOCYTES 0 0 - 2 % 06/08/2022 5:55 AM [facility] NEUTROPHIL ABSOLUTE 4.61 2.00 - 8.00 K/uL 06/08/2022 5:55 AM [facility] LYMPHOCYTE ABSOLUTE 2.67 1.20 - 4.00 K/uL 06/08/2022 5:55 AM [facility] MONOCYTE ABSOLUTE 0.95(H) 0.10 - 0.60 K/uL 06/08/2022 5:55 AM [facility] EOSINOPHIL ABSOLUTE 0.19 0.00 - 0.70 K/uL 06/08/2022 5:55 AM [facility] BASOPHILS ABSOLUTE 0.03 0.00 - 0.20 K/uL 06/08/2022 5:55 AM [facility] IMMATURE GRANULOCYTES ABSOLUTE 0.03 0.00 - 0.10 K/uL 06/08/2022 5:55 AM [facility] Blood Collection / Unknown 06/08/2022 06/08/2022 5:45 AM INSTALLER us Fabiola Mendez PA-C HEMATOLOGY ORDERABLES Final Re sult [facility] # [id number] [address] [place] [id number] * (ABNORMAL) COMPREHENSIVE METABOLIC PANEL (06/08/2022 12:00 AM INSTALLER) SODIUM 139 136 - 145 mmol/L 06/08/2022 6:25 AM [facility] POTASSIUM 4.0 3.5 - 5.1 mmol/L 06/08/2022 6:25 AM [facility] CHLORIDE 104 98 - 107 mmol/L 06/08/2022 6:25 AM [facility] CO2 24 22 - 29 mmol/L 06/08/2022 6:25 AM [facility] CALCIUM 9.4 8.6 - 10.0 mg/dL 06/08/2022 6:25 AM [facility] BUN 17 6 - 20 mg/dL 06/08/2022 6:25 AM [facility] CREATININE 0.68 0.67 - 1.17 mg/dL 06/08/2022 6:25 AM [facility] GLUCOSE 185(H) 74 - 99 mg/dL 06/08/2022 6:25 AM [facility] TOTAL PROTEIN 7.8 6.4 - 8.3 g/dL 06/08/2022 6:25 AM [facility] ALBUMIN 3.6 3.5 - 5.2 g/dL 06/08/2022 6:25 AM [facility] BILIRUBIN TOTAL 0.3 0.2 - 1.0 mg/dL 06/08/2022 6:25 AM [facility] ALKALINE PHOSPHATASE 152(H) 40 - 129 U/L 06/08/2022 6:25 AM [facility] AST 71(H) 10 - 50 U/L 06/08/2022 6:25 AM [facility] ALT 81(H) <=50 U/L 06/08/2022 6:25 AM [facility] GFR >60 >=60 mL/min/1.7 3 sq meter 06/08/2022 6:25 AM [facility] Comment:eGFR calculated with 2020 CKD-EPI equation. Vegetarian diet, extremely high or low muscle mass, and may affect results. Cystatin C with Glomerular Filtration Rate is a suitable alternative for these patients. ANION GAP 11 9 - 20 mmol/L 06/08/2022 6:25 AM [facility] Blood Collection / Unknown 06/08/2022 06/08/2022 5:45 AM INSTALLER us Fabiola Mendez PA-C CHEMISTRY ORDERABLES Final Res ult [facility] CLIA # [id number] [id number] documented in this encounter Visit Diagnoses Not on filedocumented in this encounter
--- OUTSIDE RECORDS SUMMARY | 2024-08-02 13:14 | XMS_ITS | Encounter Summary ---
Author Organization [facility] Address [address] [place] [address] Care Team Providers Care Interlocking Pavement Installer Name Role Phone Unavailable Primary Care Provider Unavailabl e Encounter Details Date Type Department Care Team (Late st Contact Info) Description 06/05/2022 Lab Requisition [facility] Laboratory Services [address] [place] [address] Rowdy Cook NP [address] [facility] [address] [place] [address] Social History Tobacco Use Types Packs/Day Years Used Date Smoking Tobacco: Never Assessed Sex and Gender Information Value Date Recorded Sex Assigned at Not on file Legal Sex Male 7:03 AM EXHIBITION ORGANISER Gender Identity Not on file Sexual Orientation Not on file documented as of this encounter Plan of Treatment Not on file documented as of this encounter Procedures Procedure Name Priority Date/Time Associated Diagnosis Comments VANCOMYCIN LEVEL TROUGH Stat 06/05/2022 4:00 AM EXHIBITION ORGANISER documented in this encounter Results * VANCOMYCIN LEVEL TROUGH (06/05/2022 4:00 AM EXHIBITION ORGANISER) VANCOMYCIN, TROUGH 13.8 10.0 - 17.0 ug/mL 06/05/2022 5:36 AM EXHIBITION ORGANISER [facility] Blood Collection / Unknown 06/05/2022 4:00 AM EXHIBITION ORGANISER 06/05/2022 5:21 AM EXHIBITION ORGANISER Rowdy Cook NP CHEMISTRY ORDERABLES Fin al Result [facility] SERVICES [facility] # [id number] [address] [address] [place], [place] [id number] documented in this encounter Visit Diagnoses Not on filedocumented in this encounter
--- OUTSIDE RECORDS SUMMARY | 2024-08-02 13:14 | XMS_ITS | Encounter Summary ---
Author Organization [facility] Address [address] [place] [address] Care Team Providers Care Massage Coordinator Name Role Phone Unavailable Primary Care Provider Unavailabl e Encounter Details Date Type Department Care Team (Late st Contact Info) Description 06/22/2022 Lab Requisition [facility] Laboratory Services [address] [place] [address] Fabiola Mendez PA-C [address] [place] [address] Social History Tobacco Use Types Packs/Day Years Used Date Smoking Tobacco: Never Assessed Sex and Gender Information Value Date Recorded Sex Assigned at Not on file Legal Sex Male 7:03 AM SEWING MACHINE OPERATOR PLASTIC ZIPPER Gender Identity Not on file Sexual Orientation Not on file documented as of this encounter Plan of Treatment Not on file documented as of this encounter Procedures Procedure Name Priority Date/Time Associated Diagnosis Comments CBC WITH DIFFERENTIAL Routine 06/22/2022 3:45 AM SEWING MACHINE OPERATOR PLASTIC ZIPPER COMPREHENSIVE METABOLIC PANEL Routine 06/22/2022 3:45 AM SEWING MACHINE OPERATOR PLASTIC ZIPPER documented in this encounter Results * (ABNORMAL) CBC WITH DIFFERENTIAL (06/22/2022 3:45 AM SEWING MACHINE OPERATOR PLASTIC ZIPPER) WBC 11.7(H) 4.8 - 10.8 K/uL 06/22/2022 6:30 AM SEWING MACHINE OPERATOR PLASTIC ZIPPER [facility] RBC 4.28(L) 4.60 - 6.20 M/uL 06/22/2022 6:30 AM SEWING MACHINE OPERATOR PLASTIC ZIPPER [facility] HEMOGLOBIN 13.2(L) 14.0 - 18.0 g/dL 06/22/2022 6:30 AM [facility] HEMATOCRIT 40.8(L) 41.0 - 53.0 % 06/22/2022 6:30 AM [facility] MCV 95.3 84.0 - 103.0 fL 06/22/2022 6:30 AM [facility] MCH 30.8 27.0 - 34.0 pg 06/22/2022 6:30 AM [facility] MCHC 32.4 30.0 - 35.0 g/dL 06/22/2022 6:30 AM [facility] RDW 12.6 11.0 - 14.5 % 06/22/2022 6:30 AM [facility] RDW-STDEV 44.0 37.0 - 54.0 fL 06/22/2022 6:30 AM [facility] PLATELETS 279 140 - 440 K/uL 06/22/2022 6:30 AM [facility] MPV 11.9 8.9 - 12.8 fL 06/22/2022 6:30 AM [facility] NEUTROPHILS 66 42 - 75 % 06/22/2022 6:30 AM [facility] LYMPHOCYTES 23(L) 24 - 44 % 06/22/2022 6:30 AM [facility] MONOCYTES 10 2 - 10 % 06/22/2022 6:30 AM [facility] EOSINOPHILS 1 0 - 7 % 06/22/2022 6:30 AM [facility] BASOPHILS 0 0 - 1 % 06/22/2022 6:30 AM [facility] IMMATURE GRANULOCYTES 0 0 - 2 % 06/22/2022 6:30 AM [facility] NEUTROPHIL ABSOLUTE 7.67 2.00 - 8.00 K/uL 06/22/2022 6:30 AM [facility] LYMPHOCYTE ABSOLUTE 2.67 1.20 - 4.00 K/uL 06/22/2022 6:30 AM [facility] MONOCYTE ABSOLUTE 1.12(H) 0.10 - 0.60 K/uL 06/22/2022 6:30 AM [facility] EOSINOPHIL ABSOLUTE 0.14 0.00 - 0.70 K/uL 06/22/2022 6:30 AM [facility] BASOPHILS ABSOLUTE 0.04 0.00 - 0.20 K/uL 06/22/2022 6:30 AM [facility] IMMATURE GRANULOCYTES ABSOLUTE 0.04 0.00 - 0.10 K/uL 06/22/2022 6:30 AM [facility] Blood Collection / Unknown 06/22/2022 3:45 AM SEWING MACHINE OPERATOR PLASTIC ZIPPER 06/22/2022 6:21 AM SEWING MACHINE OPERATOR PLASTIC ZIPPER Fabiola Mendez PA-C HEMATOLOGY ORDERABLES Final Re sult [facility] CLIA # [id number] [address] [place] [address] * (ABNORMAL) COMPREHENSIVE METABOLIC PANEL (06/22/2022 3:45 AM SEWING MACHINE OPERATOR PLASTIC ZIPPER) SODIUM 137 136 - 145 mmol/L 06/22/2022 6:50 AM [facility] POTASSIUM 4.1 3.5 - 5.1 mmol/L 06/22/2022 6:50 AM [facility] CHLORIDE 101 98 - 107 mmol/L 06/22/2022 6:50 AM [facility] CO2 25 22 - 29 mmol/L 06/22/2022 6:50 AM [facility] CALCIUM 10.0 8.6 - 10.0 mg/dL 06/22/2022 6:50 AM [facility] BUN 20 6 - 20 mg/dL 06/22/2022 6:50 AM [facility] CREATININE 0.86 0.67 - 1.17 mg/dL 06/22/2022 6:50 AM [facility] GLUCOSE 177(H) 74 - 99 mg/dL 06/22/2022 6:50 AM [facility] TOTAL PROTEIN 8.9(H) 6.4 - 8.3 g/dL 06/22/2022 6:50 AM [facility] ALBUMIN 4.3 3.5 - 5.2 g/dL 06/22/2022 6:50 AM [facility] BILIRUBIN TOTAL 0.3 0.2 - 1.0 mg/dL 06/22/2022 6:50 AM [facility] ALKALINE PHOSPHATASE 158(H) 40 - 129 U/L 06/22/2022 6:50 AM [facility] AST 62(H) 10 - 50 U/L 06/22/2022 6:50 AM [facility] ALT 73(H) <=50 U/L 06/22/2022 6:50 AM [facility] GFR >60 >=60 mL/min/1.7 3 sq meter 06/22/2022 6:50 AM [facility] Comment:eGFR calculated with 2020 CKD-EPI equation. Vegetarian diet, extremely high or low muscle mass, and may affect results. Cystatin C with Glomerular Filtration Rate is a suitable alternative for these patients. ANION GAP 11 9 - 20 mmol/L 06/22/2022 6:50 AM [facility] Blood Collection / Unknown 06/22/2022 3:45 AM SEWING MACHINE OPERATOR PLASTIC ZIPPER 06/22/2022 6:23 AM SEWING MACHINE OPERATOR PLASTIC ZIPPER us Fabiola Mendez PA-C CHEMISTRY ORDERABLES Final Res ult [facility] CLIA # [id number] [address] [place] [address] documented in this encounter Visit Diagnoses Not on filedocumented in this encounter
--- OUTSIDE RECORDS SUMMARY | 2024-08-02 13:14 | XMS_ITS | Encounter Summary ---
Author Organization [facility] Address [address] [place] [address] Care Team Providers Care Twister Doffer Name Role Phone Unavailable Primary Care Provider Unavailabl e Encounter Details Date Type Department Care Team (Late st Contact Info) Description 05/22/2022 Lab Requisition [facility] Laboratory Services [address] [place] [id number] Sunday Salcido MD NO ADDRESS ON FILE Social History Tobacco Use Types Packs/Day Years Used Date Smoking Tobacco: Never Assessed Sex and Gender Information Value Date Recorded Sex Assigned at Not on file Legal Sex Male 7:03 AM SUPERINTENDENT PRESSURE Gender Identity Not on file Sexual Orientation Not on file documented as of this encounter Plan of Treatment Not on file documented as of this encounter Procedures Procedure Name Priority Date/Time Associated Diagnosis Comments VANCOMYCIN LEVEL TROUGH Routine 05/22/2022 9:47 AM SUPERINTENDENT PRESSURE documented in this encounter Results * VANCOMYCIN LEVEL TROUGH (05/22/2022 9:47 AM SUPERINTENDENT PRESSURE) VANCOMYCIN, TROUGH 12.0 10.0 - 17.0 ug/mL 05/22/2022 10:56 AM SUPERINTENDENT PRESSURE [facility] [employer] [facility] Blood Collection / Unknown 05/22/2022 9:47 AM SUPERINTENDENT PRESSURE 05/22/2022 10:38 AM SUPERINTENDENT PRESSURE us Sunday Salcido MD CHEMISTRY ORDERABLES F inal Result [facility] [employer] [facility] CLIA # [id number] [address] [place], [place] [address] [place] [address] documented in this encounter Visit Diagnoses Not on filedocumented in this encounter
--- NOTE | 2024-08-02 13:36 | PC.NURSE ---
Patient transferred from CSU to ICU at 1320.
[2024-08-02] MEDS: FUROsemide 10 mg/mL SDV 4mL 40 MG IVP (13:47)
[2024-08-02] MEDS: heparin drip 25,000 UNIT/500 ML PREMIX 34.23 UNIT IV (13:51)
[2024-08-02] MEDS: heparin 5,000 unit/mL INJ 1 mL IVP (13:53)
--- NOTE | 2024-08-02 15:26 | PM.MISC ---
Miscellaneous Note Purpose of Documentation: Overnight labs and H&P reviewed. Patient is currently somnolent, lethargic. Reviewed CT of the chest abdomen and pelvis which shows bilateral infiltrates concerning for multifocal pneumonia. In the background of influenza concerned about superadded bacterial infection. Continue empiric antibiotic coverage with piperacillin/tazobactam, azithromycin and vancomycin. Check MRSA nasal screen. Continue Tamiflu 75 mg p.o. twice daily. Reviewed baseline troponin of 102, increasing to 112 at 2 hours, with a delta of 10. Serial downtrend at 93. Echocardiogram has been ordered and currently awaited. Start heparin drip for NSTEMI. Serially trend LFTs. Suspect hepatic congestion. Start diuresis with Lasix 40 mg IV every 12 hours. Closely monitor urine output and renal function. Noted mild liver cirrhosis. Check ammonia given altered mentation.
[2024-08-02 16:33] LABS: Ammonia 40 umol/L (16-60)
[2024-08-02] MEDS: sennosides 8.6 mg Tablet 17.2 MG PO (20:39)
[2024-08-02] MEDS: atorvastatin 40 mg Tablet PO (20:39)
[2024-08-02 20:40] LABS: Partial Thromboplastin Time 160.8 SECONDS (23.9-36.7)
[2024-08-02] MEDS: VANCOMYCIN ADD-Vantage 1,000 MG in 0.9% NaCl ADD-Vantage 250 ML 250 MG IV (22:29)
[2024-08-03] VITALS (61 sets, daily range): BP systolic 101–160; BP diastolic 69–107; PULSE 74–106; RESP 3–31; TEMP 36.4–36.7; O2SAT 88–100
[2024-08-03] MEDS: ipratropium 0.5 mg/2.5 mL Neb INHALATION ×6 (00:28→21:29)
[2024-08-03] MEDS: levalbuterol 1.25 mg/3 mL Neb INHALATION ×5 (00:28→15:09)
[2024-08-03 01:08] LABS: Partial Thromboplastin Time 43.5 SECONDS (23.9-36.7)
[2024-08-03] MEDS: FUROsemide 10 mg/mL SDV 4mL 40 MG IVP ×2 (02:32→13:45)
[2024-08-03] MEDS: piperacillin-tazobactam 3.375 GM in sodium chloride 0.9% (plus) 50 ML IV ×3 (02:32→18:22)
[2024-08-03 04:12] LABS: Basophils % 0.1 %; Hematocrit 43.3 % (37-53); Lymphocytes # 0.6 10^3/uL (0.8-4.8); Lymphocytes % 3.6 %; Mean Corpuscular HGB Conc 33.9 g/dL (30-55); Mean Corpuscular Hemoglobin 31.5 pg (27-33); Mean Corpuscular Volume 92.9 fl (82-101); Mean Platelet Volume 11.2 fL (7.4-10.4); Monocytes # 0.4 10^3/uL (0.2-0.9); Monocytes % 2.7 %; Neutrophils # 14.34 10^3/uL (1.8-7.7); Neutrophils % 93.1 %; Nucleated Red Blood Cells % 0 %; Platelet Count 158 10^3/cmm (157-399); Red Blood Count 4.66 10^6/uL (3.85-5.65); Red Cell Distribution Width 12.1 % (12.1-15.1)
[2024-08-03 04:37] LABS: Albumin Level 3.5 g/dL (3.5-5.2); Chloride 99 mmol/L (98-107); Potassium 4.5 mmol/L (3.5-5.1); Sodium 140 mmol/L (136-145)
[2024-08-03 04:45] LABS: ABG PCO2 47.8 mmHg (35-45); ABG PH Result 7.44 (7.35-7.45); Arterial Blood Gas Hematocrit 45.5 % (42-52); Base Excess ABG 6.6 mmol/L (-2.0-2.0); Blood Gas LPM 2.5 %; Blood Gas Operator Identificat SAM; Blood Gas Sample Site Brachial, left; Blood Gas Sample Type Arterial; HCO3 ABG 32.1 mmol/L (22-26); Oxygen Device NC; PO2 ABG 77.3 mmHg (80.0-100.0)
[2024-08-03 04:49] LABS: Alkaline Phosphatase 137 U/L (40-130); Anion Gap 17.5 (5-19); Blood Urea Nitrogen 33 mg/dL (8-23); Calcium 8.2 mg/dL (8.5-10.5); Carbon Dioxide 28 mmol/L (22-29); Globulin 3.8 g/dL (1.3-4.6); Glomerular Filtration Rate 62.3 mL/min (90-130); Glucose 188 mg/dL (65-115); Osmolality Calculated 302 mOsm/kg (285-295); Total Bilirubin 0.5 mg/dL (0.15-1.2); Total Protein 7.3 g/dL (6.6-8.7)
[2024-08-03 05:55] LABS: Alanine Aminotransferase 1122 U/L (0-41); Aspartate Amino Transferase 1249 U/L (0-40)
[2024-08-03] MEDS: pantoprazole 40 mg SDV IVP (06:40)
[2024-08-03] MEDS: aspirin 81 mg EC Tablet PO (06:40)
[2024-08-03] MEDS: AZITHROMYCIN ADD-Vantage 500 MG in 0.9% NaCl ADD-Vantage 250 ML 250 MG IV (06:41)
[2024-08-03] MEDS: docusate sodium 100 mg Capsule 200 MG PO (08:37)
[2024-08-03] MEDS: VANCOMYCIN ADD-Vantage 1,000 MG in 0.9% NaCl ADD-Vantage 250 ML 250 MG IV (08:37)
[2024-08-03] MEDS: oseltamivir phosphate 75 mg Capsule PO ×2 (08:37→17:17)
[2024-08-03] MEDS: methylPREDNISolone sod succ 40 mg/mL INJ IVP (08:37)
[2024-08-03 08:52] LABS: Partial Thromboplastin Time 168.3 SECONDS (23.9-36.7)
[2024-08-03 12:20] LABS: Glucose Point of Care 222 mg/dL (70-110)
--- NOTE | 2024-08-03 13:13 | PC.NURSE ---
This nurse answered patients call light, patient up in room pulling off all monitoring and gown. This nurse stated, Wait don't pull out your IV, and offered the bed side commode. Patient stated, I'm not using that, I'm using this! patient was stretching his oxygen tubing towards the bathroom. Once again, the bed side commode was offered due to oxygen tubing not reaching. Patient then forcefully removed his oxygen and continued towards the bathroom, yelling and cussing, slamming the bathroom door. This nurse called out to the primary nurse for assistance. Patient continued yelling and cussing in the shared bathroom. This nurse asked the patient politely to stop yelling and cussing due to patient next door. Patient stated, I don't fucking care you fucking white piece of shit. I want to talk to anuel, you bunch of white motherfuckers, you better call security! letting me fucking shit on my self! Patient requested AMA papers. Patient threw toilet paper with stool on the floor and stated, Clean that up bitch!. Primary nurse left to call security. Patient came towards this nurse with fists balled at his sides and stated, you ain't never seen anyone like me have you? Security arrived and primary nurse took over care of patient.
[2024-08-03 13:30] LABS: Partial Thromboplastin Time 46.8 SECONDS (23.9-36.7)
--- NOTE | 2024-08-03 15:02 | P.PN_ITS ---
Subjective 2 Subjective: Patient is clinically improving today. He is awake alert and able to hold a full conversation. On room air his oxygen saturations dropped to 84%. Currently requiring 2 L/min supplemental O2. Medications: Reviewed: Yes Vitals/I&O/Wt Last Vital Signs Temp 98.1 F 08/03/24 12:45 Pulse 95 08/03/24 13:30 Resp 16 08/03/24 13:30 BP 111/69 08/03/24 13:30 Pulse Ox 95 08/03/24 12:45 O2 Del Method Nasal Cannula 08/03/24 12:45 O2 Flow Rate 2 08/03/24 12:45 08/03/24 08/03/24 08/03/24 06:59 14:59 22:59 Intake Total 250 / 1477.328 263 / 263 Output Total 1000 / 5450 1250 / 1250 Balance -750 / -3972.672 -987 / -987 Weight last 48 hrs Weight 77.791 kg Weight 78.018 kg Physical Exam 2 Narrative: General: No acute distress, AO x3 HEENT: PERRLA, pupils bilaterally equal and reactive, pallors not present Chest: Normal vesicular breath sounds, no added sounds, equal good air entry bilaterally CVS: S1-S2 regular, no murmurs, no tachycardia, no gallops, no rubs Abdomen: Soft, nontender, no organomegaly, bowel sounds present Neuro: No focal deficits, no facial deformity, AO x3, power 5/5 in all limbs Data 08/03/24 04:01 08/03/24 04:01 Micro: Microbiology 08/03/24 08:05 Gram Stain - Final Sputum - Expectorated Sputum 08/01/24 23:04 Blood Culture - Preliminary Blood NEGATIVE TO DATE 08/01/24 22:31 Blood Culture - Preliminary Blood NEGATIVE TO DATE A&P Assessment and plan (1) Severe sepsis: (2) Bilateral pneumonia: (3) Influenza A: (4) Acute hypoxemic respiratory failure: (5) NSTEMI (non-ST elevated myocardial infarction): Plan Leroy Olivo is a 59 year old male treated Hepatitis C, chronic HpEF, COPD, IDDM2, who came to the ED on 08/01/2024 for 2 days of progressive dyspnea. #Acute hypoxic respiratory failure- on 3L. Continue to monitor closely. He is at high risk of decompensating #Severe Sepsis: #Influenza A pneumonia #superimposed Multilobar Bacterial Pneumonia - noted on CTA chest/abd/pelvis - F/u BCx. Ordered Sputum cx - Started Tamiflu, Vanc, Zosyn, Azithromycin. #Lactic acidosis: continue to trend. #Acute COPD exacerbation - Ordered Xopenex/Ipratropium, Solumedrol, PPI #Elevated LFTs: congestive hepatopathy vs acute ischemic liver injury - s/p Furosemide 80mg IVP x 1 given in the ED. - Monitor closely. #Concern for Acute on chronic HFpEF - s/p Furosemide 80mg IVP given in the ED. - I am not convinced that he is in heart failure. I do believe that he will benefit from IVF, but at this time, efforts are being made to infuse antibiotics through one IVF, so will defer initiation of IVF to the Day Hospitalist. - Strict Is & Os. - F/u ECHO #HTN - Hydralazine IVP prn w/ parameters ordered. #IDDM2 - low dose SSI qAM and medium dose SSI qPM DVT ppx: Lovenox GI ppx: PPI. CODE STATUS: Per discussion wtih the patient, he is full code. Given my level of concern, about being high risk for respiratory demise, I have asked the director housekeeping to move him to the ICU for closer monitoring August 03, 2024 Patient is alert awake oriented. Clinically currently appears to be much better. He is able to hold a conversation. Saturating 84% on room air, requiring 2 L/min supplemental O2. Continue empiric antibiotic coverage with Zosyn and azithromycin. MRSA nasal screen negative. Discontinue vancomycin. Creatinine trending up to 1.4 today. Reduce Lasix to 40 mg IV every 24 hours. Continue heparin drip. Echocardiogram showed moderately increased LV size. Severely decreased LVEF at 25%, grade 3 diastolic dysfunction. Will consult cardiology as these changes appear to be new compared to May 2022. PDMP PDMP Reviewed: Not Reviewed Attestations 2 Medical Necessity Statement*: continued admission for FLu A, CHF, pneumonia, NSTEMI Coding Level of Care Code Acute Code for [facility] Fwd Diagnoses Severe sepsis A41.9; R65.20 Bilateral pneumonia J18.9 Influenza A J10.1 Acute hypoxemic respiratory failure J96.01 NSTEMI (non-ST elevated myocardial infarction) I21.4
--- NOTE | 2024-08-03 15:49 | PC.NURSE ---
At approximately 1pm, patient got up to the bathroom by himself. DIdn't make it to the bathroom in time and soiled his pants. Patient became very upset with nursing staff and was yelling obscenities. After allowing patient to vent about his frustrations he had calmed down and allowed staff to help him get clean and returned to bed.
--- NOTE | 2024-08-03 15:51 | P.CONIM_ITS ---
<Statement entered by Jim Fenton M.D - 08/04/24 12:35> Patient was evaluated and cared for in conjunction with an advanced practice practitioner.? I personally examined the patient and reviewed the chart and all pertinent data including imaging, telemetry, and laboratory results.? I discussed the patient in detail with the advanced practice practitioner.? Please see? their note for complete consult note, testing results and agreed upon plan of care for the patient. GENERAL: Patient is alert, awake and oriented x3. HEART: Regular S1 and S2 LUNGS Diminished air entry bilaterally CENTRAL NERVOUS SYSTEM: Grossly nonfocal. EXTREMITIES: Lower extremities with no edema Patient's LV function is severely reduced. In the past had left circumflex artery disease however because of non-compliance stent was not placed. Patient had balloon angioplasty. He does not have chest pain. Patient's LV dysfucntion likely non-ischemic in setting of influenza infection however because of prior CAD history, will recommend coronary angiogram in 1-2 days Thank you for involving us with care of this patient. Please lashawn with questions Providers/Reason For Consult 2 Consulting Physician/Specialty*: Dr. Fenton Reason for Consult*: new onset systolic CHF Requesting Physician: Dr. Gutiérrez Attending Physician: Kim Gutiérrez MD Primary Care Provider: Dallas Kwan MD History of Present Illness History of Present Illness Leroy Olivo is a 59 year old male who is known to our service with a history of balloon angioplasty of a severely blocked circumflex artery in 2022. This was treated without a stent due to questionable medication compliance. Patient has a history of tobacco use, COPD, diastolic heart failure with preserved ejection fraction, coronary artery disease, hepatitis C, hypertension, diabetes, and previous methamphetamine abuse. He presented to the emergency room a couple days ago with severe shortness of breath. He is a poor historian. He states he did not have any chest pain. He is found to be influenza A positive. CT chest abdomen pelvis showed extensive groundglass and alveolar opacity throughout both lungs and multi lobar pneumonia without evidence of PE. Moderate cardiomegaly was seen on echo. No effusions seen. He was diuresed with lasix 40 mg q 12. He is -3249 L over 24 hours. Creatinine slightly elevated at 1.4. Liver function elevated. Troponin elevated at 102-112.3-93.2. Current O2 sat is 93% on room air. He appears comfortable in no acute distress. Echo was done that showed severely decreased EF at 25% with global left ventricular hypokinesis. Grade III/IV diastolic dysfunction. Review of Systems 2 Narrative: Consitutional: Denies fever Card: Denies chest pain, palpitations, irregular heart rhythm, edema, syncope, shortness of breath, orthopnea, leg pain with exertion Resp: reports shortness of breath on exertion Musc: Denies extremity pain, denies limited range of motion or recent injury Skin: Denies rash, lesions, or wounds, denies changes to skin color Neuro: s/s of stroke Medications/Allergies Home Medications ?Medication ?Instructions ?Recorded ?Confirmed ?Last Taken ?Type blood sugar diagnostic (OneTouch #100 ea 06/25/2206/2709/29/22 21:00 Rx Ultra Test strips) blood-glucose meter (NewselaTouch #1 ea 06/25/22 08/02/24 09/29/22 21:00 Rx Ultra2 Meter kit) lancets (NewselaTouch UltraSoft #100 ea 06/25/22 08/02/24 09/29/22 21:00 Rx Lancets) pen needle, diabetic 31 gauge x #100 ea 06/30/2208/0209/29/22 21:00 Rx 3/16 (BD Ultra-Fine Mini Pen Needle) albuterol sulfate 90 mcg/actuation 1 inh inhalation QI D PRN shortness 06/07/23 08/02/24 Unknown Rx aerosol inhaler of breath or wheezing #6.7 g marielos fluticasone propionate 50 2 spray intranasal DAILY PRN 07/28/23 08/02/24 Unknown History mcg/actuation nasal Allergy Symptoms spray,suspension (Flonase Allergy Relief) bumetanide 1 mg tablet See Rx Instructions .Route 1 08/02/24 08/01/24 Rx .COMPLEX #60 tabs potassium chloride 20 mEq See Rx Instructions .Route 1 08/02/24 08/01/24 Rx tablet,extended release(part/cryst) .COMPLEX #60 tabs atorvastatin 40 mg tablet (Lipitor) 40 mg PO BEDTIME # 90 tabs 02/06/24 08/02/24 07/31/24 Rx losartan 100 mg tablet 100 mg PO QAM #90 tabs 10/06 /24 04/02/25 04/01/25 Rx carvedilol 12.5 mg tablet 12.5 mg PO BID #180 tabs 05/2608/02/24 08/01/24 Rx benzonatate 200 mg capsule 200 mg PO BID PRN cough #30 caps 04/25/24 08/02/24 Unknown Rx insulin glargine 100 unit/mL (3 28 unit (0.28 mL) SUBC UT BID 60 04/28/24 08/02/24 08/01/24 Rx mL) subcutaneous pen (Lantus days #33.6 mL Solostar U-100 Insulin) hydralazine 25 mg tablet 25 mg PO TID #270 tabs 05/2408/02/24 08/01/24 Rx aspirin 81 mg tablet,delayed 81 mg PO QAM #90 tabs 08/2508/02/24 08/01/24 Rx release clopidogrel 75 mg tablet 75 mg PO QAM #90 tabs 08/02/24 08/01/24 Rx budesonide-formoterol HFA 80 2 puff inhalation BID #10 .2 grams 07/28/24 08/02/24 08/01/24 Rx mcg-4.5 mcg/actuation aerosol inhaler (Symbicort) Allergies Allergy/AdvReac Type Severity Reaction Status Date / Time No Known Allergies Allergy Verified 07/24/24 11:36 Current Medications Generic Name Dose Route Start Last Admin Trade Name Freq PRN Reason Stop Dose Admin Aspirin 81 mg 08/03/24 06:00 08/03/24 06:40 Aspirin 81 Mg Ec Tablet PO 81 mg QAM STEPHANIE Administration Atorvastatin Calcium 40 mg 08/02/24 21:00 08/02/24 20:39 Atorvastatin 40 Mg Tablet PO 40 mg BEDTIME STEPHANIE Administration Docusate Sodium 200 mg 08/02/24 09:00 08/03/24 08:37 Docusate Sodium 100 Mg Capsule PO 200 mg DAILY STEPHANIE Administration Hydralazine HCl 10 mg 08/02/24 07:21 08/02/24 07:51 Hydralazine 20 Mg/Ml Inj 1 Ml IVP 10 mg Q4H PRN Administration HYPERTENSION Azithromycin 500 mg/ Sodium 250 mls @ 250 mls/hr 08/02/24 07:00 08/03/24 15:48 Chloride IV 08/07/24 06:59 Infused Q24H STEPHANIE Infusion Protocol Piperacillin Sod/Tazobactam 50 mls @ 12.5 mls/hr 08/02/24 07:00 08/03/24 15:48 Sod 3.375 gm/ Sodium Chloride IV Infused Q8H STEPHANIE Infusion Protocol Heparin Sodium/Sodium Chloride 25,000 unit in 500 mls @ 0 mls/hr 08/02/24 13:33 08/03/24 14:24 Heparin Drip IV 19.28 unit/kg/hr CONT STEPHANIE 30 mls/hr Titration Protocol Per Protocol Ipratropium Carlton 0.5 mg 08/02/24 08:00 08/03/24 15:09 Ipratropium 0.5 Mg/2.5 Ml Neb INHALATION 0.5 mg Q4H.RESPIRATORY STEPHANIE Administration Levalbuterol HCl 1.25 mg 08/02/24 12:00 08/03/24 15:09 Levalbuterol 1.25 Mg/3 Ml Neb INHALATION 1.25 mg Q4H.RESPIRATORY STEPHANIE Administration Methylprednisolone Sodium Succinate 40 mg 08/03/24 09:00 08/03/24 08:37 Methylprednisolone Sod Succ 40 Mg/Ml Inj IVP 40 mg Q24H STEPHANIE Administration Oseltamivir Phosphate 75 mg 08/02/24 09:00 08/03/24 08:37 Oseltamivir Phosphate 75 Mg Capsule PO 75 mg BID STEPHANIE Administration Pantoprazole Sodium 40 mg 08/03/24 07:00 08/03/24 06:40 Pantoprazole 40 Mg Sdv IVP 40 mg QAM STEPHANIE Administration Senna 17.2 mg 08/02/24 21:00 08/02/24 20:39 Sennosides 8.6 Mg Tablet PO 17.2 mg BEDTIME STEPHANIE Administration PFSH Acute 2 PFSH: Medical History (Updated 08/03/24 @ 16:03 by Sophie Casillas NP) Tobacco abuse counseling Tobacco use disorder, moderate, dependence COPD (chronic obstructive pulmonary disease) Heart failure with preserved ejection fraction Chest pain CHF (congestive heart failure) Atherosclerosis of barrow coronary artery without angina pectoris BJORN (iron deficiency anemia) Hepatitis C Congestive heart failure 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 Diabetic peripheral neuropathy associated with type 2 diabetes mellitus HTN (hypertension) Orthopedic hardware present Non-healing wound of left lower extremity Open tibial fracture Smoking Methamphetamine use Diabetes Surgical History History of surgery on lower extremity Family History Other Crohn's disease Diabetes Hyperlipidemia Hypertension Denies family history of CAD (coronary artery disease) Clotting disorder Dementia Psychiatric illness Chronic kidney disease (CKD) Anesthesia complication Bleeding disorder Lung disease Cancer Stroke Social History Smoking and tobacco/nicotine status: current some day tobacco/nicotine user cigarettes [ Other cigarette details: quit 2018. 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 Current gender identity: Male Special costa needs: No Agree to transfusion: Yes Vitals/I&O/Wt Last Vital Signs Temp 98.1 F 08/03/24 12:45 Pulse 79 08/03/24 15:45 Resp 16 08/03/24 15:45 BP 160/100 08/03/24 15:45 Pulse Ox 93 08/03/24 15:45 O2 Del Method Nasal Cannula 08/03/24 15:09 O2 Flow Rate 2 08/03/24 15:09 08/03/24 08/03/24 08/03/24 06:59 14:59 22:59 Intake Total 250 / 1477.328 263 / 263 550 / 813 Output Total 1000 / 5450 1250 / 1250 Balance -750 / -3972.672 -987 / -987 550 / -437 Weight last 48 hrs Weight 171 lb 8 oz Weight 172 lb Physical Exam 2 Narrative: General: No apparent distress HENMT: normoceophalic Neck: No carotid bruit bilaterally Muskuloskeletal: Full ROM Lymphatic: no lymphedema noted Respiratory: Normal respiratory effort, course crackles throughout bilateral lower lobes, no use of accessory muscles Cardio: No JVD, regular rate, regular rhythm, S1 S2 normal, no murmurs, peripheral pulses 2+ throughout GI: Normal to inspection, nondistended Extremities: no cyanosis or edema Neuro: Alert and oriented x4, no focal motor deficits Psych: Affect normal Skin: No rashes or lesions noted, no wounds Data 08/03/24 04:01 08/03/24 04:01 Micro: Microbiology 08/03/24 08:05 Gram Stain - Final Sputum - Expectorated Sputum 08/01/24 23:04 Blood Culture - Preliminary Blood NEGATIVE TO DATE 08/01/24 22:31 Blood Culture - Preliminary Blood NEGATIVE TO DATE A&P Assessment and plan (1) HTN (hypertension): Qualifiers: Hypertension type: primary hypertension Qualified Code(s): I10 - Essential (primary) hypertension (2) Acute diastolic CHF (congestive heart failure): (3) CHF exacerbation: Qualifiers: Heart failure type: combined systolic and diastolic Qualified Code(s): I50.43 - Acute on chronic combined systolic (congestive) and diastolic (congestive) heart failure (4) NSTEMI (non-ST elevated myocardial infarction): (5) Acute exacerbation of congestive heart failure: Qualifiers: Heart failure type: combined systolic and diastolic Qualified Code(s): I50.43 - Acute on chronic combined systolic (congestive) and diastolic (congestive) heart failure (6) Systolic heart failure: Qualifiers: Heart failure chronicity: acute Qualified Code(s): I50.21 - Acute systolic (congestive) heart failure (7) Bilateral pneumonia: Qualifiers: Pneumonia type: due to unspecified organism Lung location: unspecified part of lung Qualified Code(s): J18.9 - Pneumonia, unspecified organism (8) Influenza A: Plan At this time, patient has new onset systolic heart failure in the setting of influenza A with elevated troponins and EF of 25%. He still has room to be diuresed. With slight increase with kidney function, recommend decreasing lasix to q24 hours and closely monitoring I&O. He did get a dose today. Agree with heparin drip. Due to new onset systolic CHF and NSTEMI, patient will need a heart catheterization and possible PCI once euvolemic. Thank you, Dr. Gutiérrez, for allowing us to care for this very pleasant 59 year old gentleman. PDMP PDMP Reviewed: Not Reviewed Coding Level of Care Code Acute Code for Chg Fwd Diagnoses Primary hypertension I10 Hypertension type: primary hypertension Acute diastolic CHF (congestive heart failure) I50.31 Acute on chronic combined systolic and diastolic congestive heart failure I50.43 Heart failure type: combined systolic and diastolic NSTEMI (non-ST elevated myocardial infarction) I21.4 Acute systolic heart failure I50.21 Heart failure chronicity: acute Pneumonia of both lungs due to infectious organism, unspecified part of lung J18.9 Pneumonia type: due to unspecified organism Lung location: unspecified part of lung Influenza A J10.1
--- NOTE | 2024-08-03 16:22 | PC.NURSE ---
Patient transferred from ICU to CSU at 1600.
--- NOTE | 2024-08-03 16:27 | PC.NURSE ---
heparin bag is has volume.
[2024-08-03 16:56] LABS: Glucose Point of Care 317 mg/dL (70-110)
[2024-08-03] MEDS: heparin drip 25,000 UNIT/500 ML PREMIX 30 UNIT IV (18:23)
[2024-08-03] MEDS: atorvastatin 40 mg Tablet PO (20:33)
[2024-08-03 20:49] LABS: Glucose Point of Care 320 mg/dL (70-110)
[2024-08-03 21:22] LABS: Partial Thromboplastin Time 100.7 SECONDS (23.9-36.7)
[2024-08-04] VITALS (14 sets, daily range): BP systolic 113–175; BP diastolic 76–114; PULSE 68–103; RESP 12–24; TEMP 36.4–36.9; O2SAT 90–97
[2024-08-04] MEDS: ipratropium 0.5 mg/2.5 mL Neb INHALATION ×6 (00:27→20:25)
[2024-08-04] MEDS: piperacillin-tazobactam 3.375 GM in sodium chloride 0.9% (plus) 50 ML IV ×3 (02:48→21:00)
[2024-08-04 03:22] LABS: Basophils % 0.1 %; Hematocrit 43.5 % (37-53); Lymphocytes # 0.5 10^3/uL (0.8-4.8); Lymphocytes % 3.6 %; Mean Corpuscular Hemoglobin 32.2 pg (27-33); Mean Corpuscular Volume 94.6 fl (82-101); Mean Platelet Volume 11.3 fL (7.4-10.4); Monocytes # 0.7 10^3/uL (0.2-0.9); Monocytes % 4.5 %; Neutrophils % 91.1 %; Nucleated Red Blood Cells % 0 %; Platelet Count 156 10^3/cmm (157-399); Red Cell Distribution Width 12.1 % (12.1-15.1); White Blood Count 14.82 10^3/uL (3.29-11.43)
[2024-08-04 03:52] LABS: Albumin Level 3.3 g/dL (3.5-5.2); Alkaline Phosphatase 129 U/L (40-130); Anion Gap 12.1 (5-19); Blood Urea Nitrogen 28 mg/dL (8-23); Calcium 8.2 mg/dL (8.5-10.5); Carbon Dioxide 32 mmol/L (22-29); Chloride 100 mmol/L (98-107); Globulin 3.7 g/dL (1.3-4.6); Glomerular Filtration Rate 62.3 mL/min (90-130); Glucose 198 mg/dL (65-115); Osmolality Calculated 301 mOsm/kg (285-295); Potassium 4.1 mmol/L (3.5-5.1); Sodium 140 mmol/L (136-145); Total Bilirubin 0.4 mg/dL (0.15-1.2)
[2024-08-04 03:53] LABS: Magnesium 2.2 mg/dL (1.7-2.3)
[2024-08-04 03:58] LABS: Partial Thromboplastin Time 187.4 SECONDS (23.9-36.7)
[2024-08-04 04:04] LABS: Alanine Aminotransferase 1251 U/L (0-41)
[2024-08-04 04:06] LABS: Aspartate Amino Transferase 881 U/L (0-40)
[2024-08-04] MEDS: levalbuterol 1.25 mg/3 mL Neb INHALATION ×5 (04:48→20:25)
[2024-08-04] MEDS: aspirin 81 mg EC Tablet PO (04:59)
[2024-08-04] MEDS: pantoprazole 40 mg SDV IVP (04:59)
[2024-08-04] MEDS: AZITHROMYCIN ADD-Vantage 500 MG in 0.9% NaCl ADD-Vantage 250 ML 250 MG IV (06:02)
[2024-08-04 06:11] LABS: Glucose Point of Care 153 mg/dL (70-110)
[2024-08-04 09:05] LABS: Partial Thromboplastin Time 44.4 SECONDS (23.9-36.7)
[2024-08-04] MEDS: methylPREDNISolone sod succ 40 mg/mL INJ IVP (09:18)
[2024-08-04] MEDS: docusate sodium 100 mg Capsule 200 MG PO (09:19)
[2024-08-04] MEDS: oseltamivir phosphate 75 mg Capsule PO ×2 (09:19→17:47)
[2024-08-04 11:06] LABS: Glucose Point of Care 199 mg/dL (70-110)
--- NOTE | 2024-08-04 14:31 | P.PN_ITS ---
<Statement entered by Jeff Ramey MD - 08/05/24 01:07> Patient was evaluated and cared for in conjunction with an advanced practice practitioner. I personally examined the patient and reviewed the chart and all pertinent data including imaging, telemetry, and laboratory results. I discussed the patient in detail with the advanced practice practitioner. Please see their note for complete H&P testing result and agreed upon plan of care for the patient. Subjective 2 Subjective: Patient doing well without complaints. He denies chest pain or shortness of breath. Creatinine is stable. Lungs with slight crackles. O2 sat 95% on nasal cannula. Vitals/I&O/Wt Last Vital Signs Temp 97.5 F L 08/04/24 12:00 Pulse 103 H 08/04/24 12:00 Resp 24 H 08/04/24 12:00 BP 148/91 08/04/24 12:00 Pulse Ox 95 08/04/24 12:00 O2 Del Method Nasal Cannula 08/04/24 12:00 O2 Flow Rate 1 08/04/24 11:32 08/03/24 08/04/24 08/04/24 22:59 06:59 14:59 Intake Total 1642.172 / 1905.172 312.917 / 2218.089 250 / 250 Output Total 1650 / 2900 0 / 2900 500 / 500 Balance -7.828 / -994.828 312.917 / -681.911 -250 / -250 Weight last 48 hrs Weight 166 lb 12.8 oz Physical Exam 2 Narrative: General: No apparent distress HENMT: normoceophalic Neck: No carotid bruit bilaterally Muskuloskeletal: Full ROM Lymphatic: no lymphedema noted Respiratory: Normal respiratory effort, course crackles throughout bilateral lower lobes, no use of accessory muscles Cardio: No JVD, regular rate, regular rhythm, S1 S2 normal, no murmurs, peripheral pulses 2+ throughout GI: Normal to inspection, nondistended Extremities: no cyanosis or edema Neuro: Alert and oriented x4, no focal motor deficits Psych: Affect normal Skin: No rashes or lesions noted, no wounds Data 08/04/24 03:14 08/04/24 03:14 Micro: Microbiology 08/03/24 08:05 Gram Stain - Final Sputum - Expectorated Sputum Sputum Culture - Preliminary A&P Assessment and plan (1) HTN (hypertension): Qualifiers: Hypertension type: primary hypertension Qualified Code(s): I10 - Essential (primary) hypertension (2) Acute diastolic CHF (congestive heart failure): (3) CHF exacerbation: Qualifiers: Heart failure type: combined systolic and diastolic Qualified Code(s): I50.43 - Acute on chronic combined systolic (congestive) and diastolic (congestive) heart failure (4) NSTEMI (non-ST elevated myocardial infarction): (5) Acute exacerbation of congestive heart failure: Qualifiers: Heart failure type: combined systolic and diastolic Qualified Code(s): I50.43 - Acute on chronic combined systolic (congestive) and diastolic (congestive) heart failure (6) Systolic heart failure: Qualifiers: Heart failure chronicity: acute Qualified Code(s): I50.21 - Acute systolic (congestive) heart failure (7) Bilateral pneumonia: Qualifiers: Pneumonia type: due to unspecified organism Lung location: unspecified part of lung Qualified Code(s): J18.9 - Pneumonia, unspecified organism (8) Influenza A: Plan At this time, patient has new onset systolic heart failure in the setting of influenza A with elevated troponins and EF of 25%. He still has room to be diuresed. With slight increase with kidney function, recommend decreasing lasix to q24 hours and closely monitoring I&O. Agree with heparin drip. Due to new onset systolic CHF and NSTEMI, patient will need a heart catheterization and possible PCI once euvolemic. Recommend continue with diuresis. Can decrease lasix to 40 daily do make sure kidney function remains stable. PDMP PDMP Reviewed: Not Reviewed Attestations 2 Medical Necessity Statement*: Deferred to primary. Coding Level of Care Code Acute Code for [facility] Fwd Diagnoses Primary hypertension I10 Hypertension type: primary hypertension Acute diastolic CHF (congestive heart failure) I50.31 Acute on chronic combined systolic and diastolic congestive heart failure I50.43 Heart failure type: combined systolic and diastolic NSTEMI (non-ST elevated myocardial infarction) I21.4 Acute systolic heart failure I50.21 Heart failure chronicity: acute Pneumonia of both lungs due to infectious organism, unspecified part of lung J18.9 Pneumonia type: due to unspecified organism Lung location: unspecified part of lung Influenza A J10.1
[2024-08-04 16:19] LABS: Partial Thromboplastin Time 60.3 SECONDS (23.9-36.7)
--- NOTE | 2024-08-04 16:26 | P.PN_ITS ---
Subjective 2 Subjective: No new complaints today. No chest pain. Oxygen requirement better at 1 L/min below 2. Kidney function stable with creatinine at 1.4. Urine output 2100 cc.Net -4 L since admission. Medications: Reviewed: Yes Vitals/I&O/Wt Last Vital Signs Temp 97.5 F L 08/04/24 12:00 Pulse 82 08/04/24 15:59 Resp 16 08/04/24 15:59 BP 148/91 08/04/24 12:00 Pulse Ox 95 08/04/24 15:59 O2 Del Method Nasal Cannula 08/04/24 15:59 O2 Flow Rate 1 08/04/24 15:59 08/04/24 08/04/24 08/04/24 06:59 14:59 22:59 Intake Total 312.917 / 2218.089 250 / 250 50 / 300 Output Total 0 / 2900 500 / 500 Balance 312.917 / -681.911 -250 / -250 50 / -200 Weight last 48 hrs Weight 75.659 kg Physical Exam 2 Narrative: General: No acute distress, AO x3 HEENT: PERRLA, pupils bilaterally equal and reactive, pallors not present Chest: Normal vesicular breath sounds, no added sounds, equal good air entry bilaterally CVS: S1-S2 regular, no murmurs, no tachycardia, no gallops, no rubs Abdomen: Soft, nontender, no organomegaly, bowel sounds present Neuro: No focal deficits, no facial deformity, AO x3, power 5/5 in all limbs Data 08/04/24 03:14 08/04/24 03:14 Micro: Microbiology 08/03/24 08:05 Gram Stain - Final Sputum - Expectorated Sputum Sputum Culture - Preliminary A&P Assessment and plan (1) Severe sepsis: (2) Bilateral pneumonia: Qualifiers: Pneumonia type: due to unspecified organism Lung location: unspecified part of lung Qualified Code(s): J18.9 - Pneumonia, unspecified organism (3) Influenza A: (4) Acute hypoxemic respiratory failure: (5) NSTEMI (non-ST elevated myocardial infarction): Plan Leroy Olivo is a 59 year old male treated Hepatitis C, chronic HpEF, COPD, IDDM2, who came to the ED on 08/01/2024 for 2 days of progressive dyspnea. #Acute hypoxic respiratory failure- on 3L. Continue to monitor closely. He is at high risk of decompensating #Severe Sepsis: #Influenza A pneumonia #superimposed Multilobar Bacterial Pneumonia - noted on CTA chest/abd/pelvis - F/u BCx. Ordered Sputum cx - Started Tamiflu, Vanc, Zosyn, Azithromycin. #Lactic acidosis: continue to trend. #Acute COPD exacerbation - Ordered Xopenex/Ipratropium, Solumedrol, PPI #Elevated LFTs: congestive hepatopathy vs acute ischemic liver injury - s/p Furosemide 80mg IVP x 1 given in the ED. - Monitor closely. #Concern for Acute on chronic HFpEF - s/p Furosemide 80mg IVP given in the ED. - I am not convinced that he is in heart failure. I do believe that he will benefit from IVF, but at this time, efforts are being made to infuse antibiotics through one IVF, so will defer initiation of IVF to the Day Hospitalist. - Strict Is & Os. - F/u ECHO #HTN - Hydralazine IVP prn w/ parameters ordered. #IDDM2 - low dose SSI qAM and medium dose SSI qPM DVT ppx: Lovenox GI ppx: PPI. CODE STATUS: Per discussion wtih the patient, he is full code. Given my level of concern, about being high risk for respiratory demise, I have asked the visiting housekeeper to move him to the ICU for closer monitoring August 03, 2024 Patient is alert awake oriented. Clinically currently appears to be much better. He is able to hold a conversation. Saturating 84% on room air, requiring 2 L/min supplemental O2. Continue empiric antibiotic coverage with Zosyn and azithromycin. MRSA nasal screen negative. Discontinue vancomycin. Creatinine trending up to 1.4 today. Reduce Lasix to 40 mg IV every 24 hours. Continue heparin drip. Echocardiogram showed moderately increased LV size. Severely decreased LVEF at 25%, grade 3 diastolic dysfunction. Will consult cardiology as these changes appear to be new compared to May 2022. August 04, 2024 Patient is alert awake and oriented. Respiratory status is better. Oxygen requirement down at 1 L/min. Kidney function stable. Repeat Lasix 20 mg IV today. Continue Zosyn and azithromycin. Discontinue IV steroids today. Continue heparin drip. With PTT monitoring. Dose adjusted today. Will likely proceed to coronary angiogram once volume is optimized. Add low-dose sliding scale insulin. PDMP PDMP Reviewed: Not Reviewed Attestations 2 Medical Necessity Statement*: Awaiting coronary angiogram once volume optimized. Coding Level of Care Code Acute Code for Chg Fwd High MDM includes number and complexity of problems actively addressed during encounter, amount and/or complexity of data reviewed/ordered and described risk of complication, morbidity or mortality of management as documented Diagnoses Severe sepsis A41.9; R65.20 Pneumonia of both lungs due to infectious organism, unspecified part of lung J18.9 Pneumonia type: due to unspecified organism Lung location: unspecified part of lung Influenza A J10.1 Acute hypoxemic respiratory failure J96.01 NSTEMI (non-ST elevated myocardial infarction) I21.4
[2024-08-04 17:16] LABS: Glucose Point of Care 345 mg/dL (70-110)
[2024-08-04] MEDS: FUROsemide 10 mg/mL SDV 2mL 20 MG IVP (17:47)
[2024-08-04] MEDS: insulin lispro 100 unit/1 mL SUBCUT ×2 (18:06→21:02)
[2024-08-04 20:33] LABS: Glucose Point of Care 365 mg/dL (70-110)
[2024-08-04] MEDS: atorvastatin 40 mg Tablet PO (21:00)
[2024-08-04 21:54] LABS: Partial Thromboplastin Time 52.4 SECONDS (23.9-36.7)
[2024-08-04] MEDS: heparin drip 25,000 UNIT/500 ML PREMIX 15 UNIT IV (22:32)
[2024-08-04] MEDS: heparin 5,000 unit/mL INJ 1 mL IVP (22:33)
[2024-08-04] MEDS: hyDRALAzine 20 mg/mL INJ 1 mL 10 MG IVP (23:53)
[2024-08-05] VITALS (16 sets, daily range): BP systolic 122–143; BP diastolic 77–84; PULSE 75–86; RESP 14–28; TEMP 36.3–36.8; O2SAT 87–97; BMI 28.5
[2024-08-05] MEDS: piperacillin-tazobactam 3.375 GM in sodium chloride 0.9% (plus) 50 ML IV ×3 (03:21→17:28)
[2024-08-05 04:37] LABS: Basophils % 0.1 %; Hematocrit 43.7 % (37-53); Lymphocytes # 0.7 10^3/uL (0.8-4.8); Lymphocytes % 6.4 %; Mean Corpuscular HGB Conc 33.6 g/dL (30-55); Mean Corpuscular Hemoglobin 31.5 pg (27-33); Mean Corpuscular Volume 93.6 fl (82-101); Mean Platelet Volume 11.6 fL (7.4-10.4); Monocytes # 0.8 10^3/uL (0.2-0.9); Monocytes % 7.4 %; Neutrophils # 9.32 10^3/uL (1.8-7.7); Neutrophils % 85.5 %; Nucleated Red Blood Cells % 0 %; Platelet Count 140 10^3/cmm (157-399); Red Blood Count 4.67 10^6/uL (3.85-5.65); Red Cell Distribution Width 11.8 % (12.1-15.1)
[2024-08-05 04:48] LABS: Partial Thromboplastin Time 69.1 SECONDS (23.9-36.7)
[2024-08-05 04:52] LABS: Albumin Level 3.3 g/dL (3.5-5.2); Alkaline Phosphatase 119 U/L (40-130); Anion Gap 8.9 (5-19); Aspartate Amino Transferase 444 U/L (0-40); Blood Urea Nitrogen 18 mg/dL (8-23); Calcium 8.5 mg/dL (8.5-10.5); Carbon Dioxide 32 mmol/L (22-29); Chloride 104 mmol/L (98-107); Creatinine Clr Calc Pharmacy 65.6175; Globulin 3.4 g/dL (1.3-4.6); Glomerular Filtration Rate 82.3 mL/min (90-130); Glucose 162 mg/dL (65-115); Osmolality Calculated 297 mOsm/kg (285-295); Potassium 3.9 mmol/L (3.5-5.1); Sodium 141 mmol/L (136-145); Total Bilirubin 0.4 mg/dL (0.15-1.2); Total Protein 6.7 g/dL (6.6-8.7)
[2024-08-05] MEDS: levalbuterol 1.25 mg/3 mL Neb INHALATION ×5 (04:55→21:08)
[2024-08-05] MEDS: ipratropium 0.5 mg/2.5 mL Neb INHALATION ×5 (04:55→21:09)
[2024-08-05] MEDS: aspirin 81 mg EC Tablet PO (05:12)
[2024-08-05] MEDS: pantoprazole 40 mg SDV IVP (05:13)
[2024-08-05 05:14] LABS: Alanine Aminotransferase 1115 U/L (0-41)
[2024-08-05 05:29] LABS: Magnesium 2.2 mg/dL (1.7-2.3)
[2024-08-05 07:07] LABS: Glucose Point of Care 159 mg/dL (70-110)
[2024-08-05] MEDS: AZITHROMYCIN ADD-Vantage 500 MG in 0.9% NaCl ADD-Vantage 250 ML 250 MG IV (08:45)
[2024-08-05] MEDS: docusate sodium 100 mg Capsule 200 MG PO (08:45)
[2024-08-05] MEDS: insulin lispro 100 unit/1 mL SUBCUT ×4 (08:45→21:30)
[2024-08-05] MEDS: oseltamivir phosphate 75 mg Capsule PO ×2 (08:45→17:19)
--- NOTE | 2024-08-05 08:45 | XRR_ITS ---
PROCEDURE INFORMATION: Exam: XR Chest Exam date and time: 08/05/2024 12:13 PM Age: 59 years old Clinical indication: Shortness of breath; Pulmonary edema; Pneumonia TECHNIQUE: Imaging protocol: Radiologic exam of the chest. Views: 1 view. COMPARISON: CT angio chest PE protcl [id number] 08/02/2024 12:28 AM FINDINGS: Lungs: Subtle bibasilar and right upper lobe opacities are noted, much better seen on the recent chest CT. No consolidation. Pleural spaces: Unremarkable. No pleural effusion. No pneumothorax. Heart/Mediastinum: Unremarkable. No cardiomegaly. Bones/joints: Unremarkable. XR/XR chest 1V portable [id number] IMPRESSION: Subtle bilateral pulmonary opacities.
[2024-08-05] MEDS: FUROsemide 10 mg/mL SDV 2mL 20 MG IVP (10:14)
[2024-08-05 11:08] LABS: Glucose Point of Care 188 mg/dL (70-110)
--- NOTE | 2024-08-05 12:03 | PM.PN ---
Subjective Subjective: patient not wearing 02 when seen, 02 sat 88-89% on RA , encouraged to keep 02 on Medications: Reviewed: Yes Vitals/I&O/Wt Last Vital Signs Temp 97.4 F L 08/05/24 11:46 Pulse 78 08/05/24 11:46 Resp 20 H 08/05/24 11:46 BP 122/84 08/05/24 11:46 Pulse Ox 92 08/05/24 11:46 O2 Del Method Nasal Cannula 08/05/24 11:46 O2 Flow Rate 1 08/05/24 11:46 08/04/24 08/05/24 08/05/24 22:59 06:59 14:59 Intake Total 1079.25 / 1329.25 170 / 1499.25 540 / 540 Output Total 550 / 1050 800 / 1850 1450 / 1450 Balance 529.25 / 279.25 -630 / -350.75 -910 / -910 Weight last 48 hrs Weight 75.296 kg Weight 75.659 kg Physical Exam Narrative: General: No acute distress, AO x3 HEENT: PERRLA, pupils bilaterally equal and reactive, pallors not present Chest: Normal vesicular breath sounds, no added sounds, equal good air entry bilaterally CVS: S1-S2 regular, no murmurs, no tachycardia, no gallops, no rubs Abdomen: Soft, nontender, no organomegaly, bowel sounds present Neuro: No focal deficits, no facial deformity, AO x3, power 5/5 in all limbs Data 08/05/24 04:26 08/05/24 04:26 Micro: Microbiology 08/03/24 08:05 Gram Stain - Final Sputum - Expectorated Sputum Sputum Culture - Final A&P Assessment and plan (1) Severe sepsis: (2) Bilateral pneumonia: Qualifiers: Pneumonia type: due to unspecified organism Lung location: unspecified part of lung Qualified Code(s): J18.9 - Pneumonia, unspecified organism (3) Influenza A: (4) Acute hypoxemic respiratory failure: (5) NSTEMI (non-ST elevated myocardial infarction): Plan Leroy Olivo is a 59 year old male treated Hepatitis C, chronic HpEF, COPD, IDDM2, who came to the ED on 08/01/2024 for 2 days of progressive dyspnea. #Acute hypoxic respiratory failure- on 3L. Continue to monitor closely. He is at high risk of decompensating #Severe Sepsis: #Influenza A pneumonia #superimposed Multilobar Bacterial Pneumonia - noted on CTA chest/abd/pelvis - F/u BCx. Ordered Sputum cx - Started Tamiflu, Vanc, Zosyn, Azithromycin. #Lactic acidosis: continue to trend. #Acute COPD exacerbation - Ordered Xopenex/Ipratropium, Solumedrol, PPI #Elevated LFTs: congestive hepatopathy vs acute ischemic liver injury - s/p Furosemide 80mg IVP x 1 given in the ED. - Monitor closely. #Concern for Acute on chronic HFpEF - s/p Furosemide 80mg IVP given in the ED. - I am not convinced that he is in heart failure. I do believe that he will benefit from IVF, but at this time, efforts are being made to infuse antibiotics through one IVF, so will defer initiation of IVF to the Day Hospitalist. - Strict Is & Os. - F/u ECHO #HTN - Hydralazine IVP prn w/ parameters ordered. #IDDM2 - low dose SSI qAM and medium dose SSI qPM DVT ppx: Lovenox GI ppx: PPI. CODE STATUS: Per discussion wtih the patient, he is full code. Given my level of concern, about being high risk for respiratory demise, I have asked the dope house operator helper to move him to the ICU for closer monitoring August 03, 2024 Patient is alert awake oriented. Clinically currently appears to be much better. He is able to hold a conversation. Saturating 84% on room air, requiring 2 L/min supplemental O2. Continue empiric antibiotic coverage with Zosyn and azithromycin. MRSA nasal screen negative. Discontinue vancomycin. Creatinine trending up to 1.4 today. Reduce Lasix to 40 mg IV every 24 hours. Continue heparin drip. Echocardiogram showed moderately increased LV size. Severely decreased LVEF at 25%, grade 3 diastolic dysfunction. Will consult cardiology as these changes appear to be new compared to May 2022. August 04, 2024 Patient is alert awake and oriented. Respiratory status is better. Oxygen requirement down at 1 L/min. Kidney function stable. Repeat Lasix 20 mg IV today. Continue Zosyn and azithromycin. Discontinue IV steroids today. Continue heparin drip. With PTT monitoring. Dose adjusted today. Will likely proceed to coronary angiogram once volume is optimized. Add low-dose sliding scale insulin. August 05, 2024: Saturating 88-89% on RA, encouraged to keep his 02 soon. Appears stable from a resp standpoint today. Lasix 20mg iv daily added. Repeat CXR. D/c heparin drip after completing 72 hrs this afternoon. Continue ASA 81mg. Resume home dose of Plavix 75mg daily. Resume Coreg, at lower dose of 6.25mg BID. Will add losartan if BP allows. Continue to hold for now. Planned for coronoary angiogram once volume status is euvolemic. Currently net negative 5.6L. PDMP PDMP Reviewed: Not Reviewed Attestations Medical Necessity Statement*: continue iv lasix, d/c heparin today, optimize volume status , planned angiogram Coding Level of Care Code Acute Code for [facility] Diagnoses Severe sepsis A41.9; R65.20 Pneumonia of both lungs due to infectious organism, unspecified part of lung J18.9 Pneumonia type: due to unspecified organism Lung location: unspecified part of lung Influenza A J10.1 Acute hypoxemic respiratory failure J96.01 NSTEMI (non-ST elevated myocardial infarction) I21.4
[2024-08-05] MEDS: pantoprazole DR 40 mg Tablet PO (12:48)
[2024-08-05] MEDS: clopidogrel 75 mg Tablet PO (12:48)
[2024-08-05 16:38] LABS: Glucose Point of Care 155 mg/dL (70-110)
[2024-08-05] MEDS: carvedilol 6.25 mg Tablet PO (17:19)
[2024-08-05 20:12] LABS: Glucose Point of Care 333 mg/dL (70-110)
[2024-08-05] MEDS: atorvastatin 40 mg Tablet PO (21:30)
--- NOTE | 2024-08-05 22:25 | P.PN_ITS ---
Subjective 2 Subjective: Patient says he is feeling better appeared to be sleepy Medications: Reviewed: Yes Vitals/I&O/Wt Last Vital Signs Temp 98.2 F 08/05/24 20:00 Pulse 82 08/05/24 21:11 Resp 18 08/05/24 21:11 BP 134/77 08/05/24 20:00 Pulse Ox 95 08/05/24 21:11 O2 Del Method Nasal Cannula 08/05/24 21:11 O2 Flow Rate 1 08/05/24 21:11 08/05/24 08/05/24 08/05/24 06:59 14:59 22:59 Intake Total 170 / 1499.25 948.283 / 948.283 480 / 1428.283 Output Total 800 / 1850 1450 / 1450 700 / 2150 Balance -630 / -350.75 -501.717 / -501.717 -220 / -721.717 Weight last 48 hrs Weight 166 lb Weight 166 lb 12.8 oz Physical Exam 2 Const: OTHER: GENERAL: Patient is sleepy but arousable HEART: Regular S1 and S2. No murmur, rub or gallop. LUNGS: Clear to auscultate bilaterally. CENTRAL NERVOUS SYSTEM: Grossly nonfocal. EXTREMITIES: Lower extremities with out edema bilaterally. Data 08/05/24 04:26 08/05/24 04:26 Micro: Microbiology 08/03/24 08:05 Gram Stain - Final Sputum - Expectorated Sputum Sputum Culture - Final A&P Assessment and plan (1) HTN (hypertension): Qualifiers: Hypertension type: primary hypertension Qualified Code(s): I10 - Essential (primary) hypertension (2) Acute diastolic CHF (congestive heart failure): (3) CHF exacerbation: Qualifiers: Heart failure type: combined systolic and diastolic Qualified Code(s): I50.43 - Acute on chronic combined systolic (congestive) and diastolic (congestive) heart failure (4) NSTEMI (non-ST elevated myocardial infarction): (5) Systolic heart failure: Qualifiers: Heart failure chronicity: acute Qualified Code(s): I50.21 - Acute systolic (congestive) heart failure (6) Bilateral pneumonia: Qualifiers: Pneumonia type: due to unspecified organism Lung location: unspecified part of lung Qualified Code(s): J18.9 - Pneumonia, unspecified organism (7) Influenza A: Plan Appeared to be euvolemic switch patient to p.o. Lasix 20 mg daily Continue statin beta-johan clopidogrel Once cleared from infection/flu we will proceed with left heart cath for cardiomyopathy new onset heart failure PDMP PDMP Reviewed: Not Reviewed Attestations 2 Medical Necessity Statement*: Patient require continuation hospitalization because of above defined problems Coding Level of Care Code Acute Code for [facility] Diagnoses Primary hypertension I10 Hypertension type: primary hypertension Acute diastolic CHF (congestive heart failure) I50.31 Acute on chronic combined systolic and diastolic congestive heart failure I50.43 Heart failure type: combined systolic and diastolic NSTEMI (non-ST elevated myocardial infarction) I21.4 Acute systolic heart failure I50.21 Heart failure chronicity: acute Pneumonia of both lungs due to infectious organism, unspecified part of lung J18.9 Pneumonia type: due to unspecified organism Lung location: unspecified part of lung Influenza A J10.1
[2024-08-06] VITALS (16 sets, daily range): BP systolic 108–153; BP diastolic 78–98; PULSE 70–107; RESP 15–21; TEMP 36.5–37.1; O2SAT 88–97
[2024-08-06] MEDS: ipratropium 0.5 mg/2.5 mL Neb INHALATION ×5 (00:10→19:59)
[2024-08-06] MEDS: levalbuterol 1.25 mg/3 mL Neb INHALATION ×5 (00:11→19:59)
[2024-08-06] MEDS: piperacillin-tazobactam 3.375 GM in sodium chloride 0.9% (plus) 50 ML IV ×3 (02:47→18:02)
[2024-08-06 05:02] LABS: Basophils % 0.2 %; Eosinophils % 0.4 %; Hematocrit 46.4 % (37-53); Lymphocytes # 1.2 10^3/uL (0.8-4.8); Lymphocytes % 11.8 %; Mean Corpuscular HGB Conc 33.6 g/dL (30-55); Mean Corpuscular Volume 92.1 fl (82-101); Mean Platelet Volume 12.2 fL (7.4-10.4); Neutrophils # 7.53 10^3/uL (1.8-7.7); Neutrophils % 76.8 %; Nucleated Red Blood Cells % 0 %; Platelet Count 129 10^3/cmm (157-399); Red Blood Count 5.04 10^6/uL (3.85-5.65); Red Cell Distribution Width 11.8 % (12.1-15.1); White Blood Count 9.81 10^3/uL (3.29-11.43)
[2024-08-06] MEDS: aspirin 81 mg EC Tablet PO (05:18)
[2024-08-06] MEDS: clopidogrel 75 mg Tablet PO (05:18)
[2024-08-06] MEDS: FUROsemide 10 mg/mL SDV 2mL 20 MG IVP (05:20)
[2024-08-06 06:11] LABS: Albumin Level 3.4 g/dL (3.5-5.2); Alkaline Phosphatase 107 U/L (40-130); Anion Gap 14.8 (5-19); Aspartate Amino Transferase 187 U/L (0-40); Blood Urea Nitrogen 18 mg/dL (8-23); Calcium 8.5 mg/dL (8.5-10.5); Carbon Dioxide 30 mmol/L (22-29); Chloride 98 mmol/L (98-107); Creatinine Clr Calc Pharmacy 59.9669; Globulin 3.6 g/dL (1.3-4.6); Glomerular Filtration Rate 74.5 mL/min (90-130); Glucose 136 mg/dL (65-115); Osmolality Calculated 292 mOsm/kg (285-295); Potassium 3.8 mmol/L (3.5-5.1); Sodium 139 mmol/L (136-145); Total Bilirubin 0.5 mg/dL (0.15-1.2)
[2024-08-06 06:23] LABS: Alanine Aminotransferase 798 U/L (0-41)
[2024-08-06 06:33] LABS: Glucose Point of Care 137 mg/dL (70-110)
[2024-08-06] MEDS: oseltamivir phosphate 75 mg Capsule PO ×2 (08:43→18:02)
[2024-08-06] MEDS: pantoprazole DR 40 mg Tablet PO (08:43)
[2024-08-06] MEDS: carvedilol 6.25 mg Tablet PO (08:43)
[2024-08-06 12:09] LABS: Glucose Point of Care 300 mg/dL (70-110)
[2024-08-06] MEDS: insulin lispro 100 unit/1 mL SUBCUT ×3 (12:13→21:06)
--- NOTE | 2024-08-06 14:40 | PM.PN ---
Subjective Subjective: Clinically doing okay. Currently on room air saturating 90%. Blood pressure trending towards hypertension now. Creatinine stable at 1.2. Medications: Reviewed: Yes Vitals/I&O/Wt Last Vital Signs Temp 98.6 F 08/06/24 12:00 Pulse 79 08/06/24 14:00 Resp 20 H 08/06/24 12:00 BP 153/95 08/06/24 12:00 Pulse Ox 90 08/06/24 12:00 O2 Del Method Room Air 08/06/24 12:00 O2 Flow Rate 1 08/06/24 05:24 08/05/24 08/06/24 08/06/24 22:59 06:59 14:59 Intake Total 960 / 1908.283 340 / 2248.283 620 / 620 Output Total 700 / 2150 1250 / 3400 575 / 575 Balance 260 / -241.717 -910 / -1151.717 45 / 45 Weight last 48 hrs Weight 75.16 kg Weight 75.296 kg Physical Exam Narrative: General: No acute distress, AO x3 HEENT: PERRLA, pupils bilaterally equal and reactive, pallors not present Chest: Normal vesicular breath sounds, no added sounds, equal good air entry bilaterally CVS: S1-S2 regular, no murmurs, no tachycardia, no gallops, no rubs Abdomen: Soft, nontender, no organomegaly, bowel sounds present Neuro: No focal deficits, no facial deformity, AO x3, power 5/5 in all limbs Data 08/06/24 04:43 08/06/24 04:43 Micro: Microbiology 08/03/24 08:05 Gram Stain - Final Sputum - Expectorated Sputum Sputum Culture - Final A&P Assessment and plan (1) Severe sepsis: (2) Bilateral pneumonia: Qualifiers: Pneumonia type: due to unspecified organism Lung location: unspecified part of lung Qualified Code(s): J18.9 - Pneumonia, unspecified organism (3) Influenza A: (4) Acute hypoxemic respiratory failure: (5) NSTEMI (non-ST elevated myocardial infarction): Plan Leroy Olivo is a 59 year old male treated Hepatitis C, chronic HpEF, COPD, IDDM2, who came to the ED on 08/01/2024 for 2 days of progressive dyspnea. #Acute hypoxic respiratory failure- on 3L. Continue to monitor closely. He is at high risk of decompensating #Severe Sepsis: #Influenza A pneumonia #superimposed Multilobar Bacterial Pneumonia - noted on CTA chest/abd/pelvis - F/u BCx. Ordered Sputum cx - Started Tamiflu, Vanc, Zosyn, Azithromycin. #Lactic acidosis: continue to trend. #Acute COPD exacerbation - Ordered Xopenex/Ipratropium, Solumedrol, PPI #Elevated LFTs: congestive hepatopathy vs acute ischemic liver injury - s/p Furosemide 80mg IVP x 1 given in the ED. - Monitor closely. #Concern for Acute on chronic HFpEF - s/p Furosemide 80mg IVP given in the ED. - I am not convinced that he is in heart failure. I do believe that he will benefit from IVF, but at this time, efforts are being made to infuse antibiotics through one IVF, so will defer initiation of IVF to the Day Hospitalist. - Strict Is & Os. - F/u ECHO #HTN - Hydralazine IVP prn w/ parameters ordered. #IDDM2 - low dose SSI qAM and medium dose SSI qPM DVT ppx: Lovenox GI ppx: PPI. CODE STATUS: Per discussion wtih the patient, he is full code. Given my level of concern, about being high risk for respiratory demise, I have asked the warehouse production worker to move him to the ICU for closer monitoring August 03, 2024 Patient is alert awake oriented. Clinically currently appears to be much better. He is able to hold a conversation. Saturating 84% on room air, requiring 2 L/min supplemental O2. Continue empiric antibiotic coverage with Zosyn and azithromycin. MRSA nasal screen negative. Discontinue vancomycin. Creatinine trending up to 1.4 today. Reduce Lasix to 40 mg IV every 24 hours. Continue heparin drip. Echocardiogram showed moderately increased LV size. Severely decreased LVEF at 25%, grade 3 diastolic dysfunction. Will consult cardiology as these changes appear to be new compared to May 2022. August 04, 2024 Patient is alert awake and oriented. Respiratory status is better. Oxygen requirement down at 1 L/min. Kidney function stable. Repeat Lasix 20 mg IV today. Continue Zosyn and azithromycin. Discontinue IV steroids today. Continue heparin drip. With PTT monitoring. Dose adjusted today. Will likely proceed to coronary angiogram once volume is optimized. Add low-dose sliding scale insulin. August 05, 2024: Saturating 88-89% on RA, encouraged to keep his 02 soon. Appears stable from a resp standpoint today. Lasix 20mg iv daily added. Repeat CXR. D/c heparin drip after completing 72 hrs this afternoon. Continue ASA 81mg. Resume home dose of Plavix 75mg daily. Resume Coreg, at lower dose of 6.25mg BID. Will add losartan if BP allows. Continue to hold for now. Planned for coronoary angiogram once volume status is euvolemic. Currently net negative 5.6L. August 06, 2024 Saturating 90% on room air. Stable from a respiratory standpoint. Clinically euvolemic. Blood pressure trending towards hypertension now. Increase Coreg to home dose of 12.5 mg p.o. twice daily. Resume hydralazine at 10 3 times daily, will uptitrate to home dose of 25 3 times daily depending on blood pressure trend. Continue to hold losartan for now. Continue aspirin Plavix atorvastatin. Change Lasix from 20 IV daily to 20 p.o. daily. Completing 5 days of Tamiflu today. Completing 5 days of treatment with piperacillin/tazobactam today. Discontinue antivirals and antibiotics after completing total 5-day course. Overall clinically optimized from a respiratory standpoint to undergo coronary angiogram for NSTEMI. Per discussion with cardiology this is planned for Wednesday.Liver enzymes continue to imrpove, AST down to 187, ALT 798. PDMP PDMP Reviewed: Not Reviewed Attestations Medical Necessity Statement*: Discontinue antibiotics and antivirals, transition iv to oral diuretics and planned angiogram. Coding Level of Care Code Acute Code for Chg Fwd High MDM includes number and complexity of problems actively addressed during encounter, amount and/or complexity of data reviewed/ordered and described risk of complication, morbidity or mortality of management as documented Diagnoses Severe sepsis A41.9; R65.20 Pneumonia of both lungs due to infectious organism, unspecified part of lung J18.9 Pneumonia type: due to unspecified organism Lung location: unspecified part of lung Influenza A J10.1 Acute hypoxemic respiratory failure J96.01 NSTEMI (non-ST elevated myocardial infarction) I21.4
--- NOTE | 2024-08-06 15:06 | P.PN_ITS ---
Subjective 2 Subjective: Clinically doing okay. Currently on room air saturating 90%. Blood pressure trending towards hypertension now. Creatinine stable at 1.2. Medications: Reviewed: Yes Vitals/I&O/Wt Last Vital Signs Temp 98.6 F 08/06/24 12:00 Pulse 79 08/06/24 14:00 Resp 20 H 08/06/24 12:00 BP 153/95 08/06/24 12:00 Pulse Ox 90 08/06/24 12:00 O2 Del Method Room Air 08/06/24 12:00 O2 Flow Rate 1 08/06/24 05:24 08/06/24 08/06/24 08/06/24 06:59 14:59 22:59 Intake Total 340 / 2248.283 620 / 620 50 / 670 Output Total 1250 / 3400 575 / 575 Balance -910 / -1151.717 45 / 45 50 / 95 Weight last 48 hrs Weight 165 lb 11.2 oz Weight 166 lb Physical Exam 2 Const: OTHER: GENERAL: Patient is sleepy but arousable HEART: Regular S1 and S2. No murmur, rub or gallop. LUNGS: Clear to auscultate bilaterally. CENTRAL NERVOUS SYSTEM: Grossly nonfocal. EXTREMITIES: Lower extremities with out edema bilaterally. Data 08/06/24 04:43 08/06/24 04:43 Micro: Microbiology 08/03/24 08:05 Gram Stain - Final Sputum - Expectorated Sputum Sputum Culture - Final A&P Assessment and plan (1) HTN (hypertension): Qualifiers: Hypertension type: primary hypertension Qualified Code(s): I10 - Essential (primary) hypertension (2) Acute diastolic CHF (congestive heart failure): (3) CHF exacerbation: Qualifiers: Heart failure type: combined systolic and diastolic Qualified Code(s): I50.43 - Acute on chronic combined systolic (congestive) and diastolic (congestive) heart failure (4) NSTEMI (non-ST elevated myocardial infarction): (5) Systolic heart failure: Qualifiers: Heart failure chronicity: acute Qualified Code(s): I50.21 - Acute systolic (congestive) heart failure (6) Bilateral pneumonia: Qualifiers: Pneumonia type: due to unspecified organism Lung location: unspecified part of lung Qualified Code(s): J18.9 - Pneumonia, unspecified organism (7) Influenza A: Plan Appear euvolemic Hold Lasix Will proceed with left heart cath try to schedule him most likely is going to happen Wednesday since Technologies Division Chair has many cases on Wednesday Continue current regimen PDMP PDMP Reviewed: Not Reviewed Attestations 2 Medical Necessity Statement*: Patient require continuation hospitalization for above defined care Coding Level of Care Code Acute Code for [facility] Fwd Diagnoses Primary hypertension I10 Hypertension type: primary hypertension Acute diastolic CHF (congestive heart failure) I50.31 Acute on chronic combined systolic and diastolic congestive heart failure I50.43 Heart failure type: combined systolic and diastolic NSTEMI (non-ST elevated myocardial infarction) I21.4 Acute systolic heart failure I50.21 Heart failure chronicity: acute Pneumonia of both lungs due to infectious organism, unspecified part of lung J18.9 Pneumonia type: due to unspecified organism Lung location: unspecified part of lung Influenza A J10.1
[2024-08-06] MEDS: hyDRALAzine 10 mg Tablet PO ×2 (15:14→21:06)
[2024-08-06 16:34] LABS: Glucose Point of Care 200 mg/dL (70-110)
[2024-08-06] MEDS: carvedilol 12.5 mg Tablet PO (18:02)
[2024-08-06 21:01] LABS: Glucose Point of Care 175 mg/dL (70-110)
[2024-08-06] MEDS: atorvastatin 40 mg Tablet PO (21:06)
[2024-08-07] VITALS (15 sets, daily range): BP systolic 100–176; BP diastolic 61–101; PULSE 64–81; RESP 13–95; TEMP 36.5–36.9; O2SAT 90–99
[2024-08-07] MEDS: ipratropium 0.5 mg/2.5 mL Neb INHALATION ×5 (00:29→19:45)
[2024-08-07] MEDS: levalbuterol 1.25 mg/3 mL Neb INHALATION ×5 (00:29→19:45)
[2024-08-07] MEDS: piperacillin-tazobactam 3.375 GM in sodium chloride 0.9% (plus) 50 ML IV ×2 (04:07→10:02)
[2024-08-07 04:23] LABS: Basophils % 0.3 %; Eosinophils # 0.1 10^3/uL (0.0-0.8); Eosinophils % 1.1 %; Hematocrit 47.1 % (37-53); Lymphocytes # 1.5 10^3/uL (0.8-4.8); Lymphocytes % 14.6 %; Mean Corpuscular HGB Conc 33.8 g/dL (30-55); Mean Corpuscular Hemoglobin 31.5 pg (27-33); Mean Corpuscular Volume 93.5 fl (82-101); Mean Platelet Volume 11.7 fL (7.4-10.4); Monocytes # 0.9 10^3/uL (0.2-0.9); Monocytes % 8.6 %; Neutrophils # 7.59 10^3/uL (1.8-7.7); Neutrophils % 74.2 %; Nucleated Red Blood Cells % 0 %; Platelet Count 127 10^3/cmm (157-399); Red Blood Count 5.04 10^6/uL (3.85-5.65); Red Cell Distribution Width 11.8 % (12.1-15.1); White Blood Count 10.22 10^3/uL (3.29-11.43)
[2024-08-07 04:37] LABS: Alanine Aminotransferase 471 U/L (0-41); Albumin Level 3.2 g/dL (3.5-5.2); Alkaline Phosphatase 104 U/L (40-130); Anion Gap 13.8 (5-19); Aspartate Amino Transferase 70 U/L (0-40); Blood Urea Nitrogen 20 mg/dL (8-23); Calcium 8.6 mg/dL (8.5-10.5); Carbon Dioxide 28 mmol/L (22-29); Chloride 101 mmol/L (98-107); Creatinine Clr Calc Pharmacy 65.4184; Globulin 3.5 g/dL (1.3-4.6); Glomerular Filtration Rate 82.3 mL/min (90-130); Glucose 224 mg/dL (65-115); Osmolality Calculated 298 mOsm/kg (285-295); Potassium 3.8 mmol/L (3.5-5.1); Sodium 139 mmol/L (136-145); Total Bilirubin 0.3 mg/dL (0.15-1.2); Total Protein 6.7 g/dL (6.6-8.7)
[2024-08-07 04:48] LABS: Slide Review Slide Review Perform
[2024-08-07] MEDS: clopidogrel 75 mg Tablet PO (05:40)
[2024-08-07] MEDS: aspirin 81 mg EC Tablet PO (05:40)
[2024-08-07 06:31] LABS: Glucose Point of Care 241 mg/dL (70-110)
[2024-08-07] MEDS: insulin lispro 100 unit/1 mL SUBCUT ×3 (08:37→17:32)
[2024-08-07] MEDS: docusate sodium 100 mg Capsule 200 MG PO (08:37)
[2024-08-07] MEDS: hyDRALAzine 10 mg Tablet PO ×3 (08:38→21:11)
[2024-08-07] MEDS: oseltamivir phosphate 75 mg Capsule PO (08:38)
[2024-08-07] MEDS: FUROsemide 20 mg Tablet PO (08:38)
[2024-08-07] MEDS: pantoprazole DR 40 mg Tablet PO (08:38)
[2024-08-07] MEDS: carvedilol 12.5 mg Tablet PO ×2 (08:38→17:31)
--- NOTE | 2024-08-07 10:59 | P.PN_ITS ---
<Statement entered by Jeff Ramey MD - 08/08/24 20:30> Patient was evaluated and cared for in conjunction with an advanced practice practitioner. I personally examined the patient and reviewed the chart and all pertinent data including imaging, telemetry, and laboratory results. I discussed the patient in detail with the advanced practice practitioner. Please see their note for complete H&P testing result and agreed upon plan of care for the patient. Subjective 2 Subjective: Patient doing well today. No chest pain or shortness of breath at this time. Blood pressure is a little high at 176/101. Creatinine is stable at 1.1. Vitals/I&O/Wt Last Vital Signs Temp 98.4 F 08/07/24 07:41 Pulse 75 08/07/24 08:52 Resp 17 08/07/24 08:52 BP 140/85 08/07/24 08:52 Pulse Ox 94 08/07/24 08:52 O2 Del Method Nasal Cannula 08/07/24 08:52 O2 Flow Rate 2 08/07/24 08:52 08/06/24 08/07/24 08/07/24 22:59 06:59 14:59 Intake Total 410 / 1030 50 / 1080 526 / 526 Output Total 350 / 925 250 / 1175 1000 / 1000 Balance 60 / 105 -200 / -95 -474 / -474 Weight last 48 hrs Weight 166 lb 9.6 oz Weight 165 lb 11.2 oz Physical Exam 2 Narrative: General: No apparent distress HENMT: normoceophalic Respiratory: Normal respiratory effort, clear throughout, no use of accessory muscles Cardio: No JVD, regular rate, regular rhythm, S1 S2 normal, no murmurs, peripheral pulses 2+ throughout GI: Normal to inspection, nondistended Extremities: no cyanosis or edema Neuro: Alert and oriented x4, no focal motor deficits Psych: Affect normal Skin: No rashes or lesions noted, no wounds Data 08/07/24 03:50 08/07/24 03:50 Micro: Microbiology 08/01/24 23:04 Blood Culture - Final Blood NO GROWTH AFTER 5 DAYS 08/01/24 22:31 Blood Culture - Final Blood NO GROWTH AFTER 5 DAYS A&P Assessment and plan (1) HTN (hypertension): Qualifiers: Hypertension type: primary hypertension Qualified Code(s): I10 - Essential (primary) hypertension (2) Acute diastolic CHF (congestive heart failure): (3) CHF exacerbation: Qualifiers: Heart failure type: combined systolic and diastolic Qualified Code(s): I50.43 - Acute on chronic combined systolic (congestive) and diastolic (congestive) heart failure (4) NSTEMI (non-ST elevated myocardial infarction): (5) Systolic heart failure: Qualifiers: Heart failure chronicity: acute Qualified Code(s): I50.21 - Acute systolic (congestive) heart failure (6) Bilateral pneumonia: Qualifiers: Pneumonia type: due to unspecified organism Lung location: unspecified part of lung Qualified Code(s): J18.9 - Pneumonia, unspecified organism (7) Influenza A: Plan Patient appears euvolemic at this time. We will proceed with left heart cath tomorrow at 6 AM. Will go ahead and start patient on low-dose Entresto to help with blood pressure as well as heart failure guideline therapy. PDMP PDMP Reviewed: Not Reviewed Attestations 2 Medical Necessity Statement*: Deferred to primary. Coding Level of Care Code Acute Code for [facility] Fwd Diagnoses Primary hypertension I10 Hypertension type: primary hypertension Acute diastolic CHF (congestive heart failure) I50.31 Acute on chronic combined systolic and diastolic congestive heart failure I50.43 Heart failure type: combined systolic and diastolic NSTEMI (non-ST elevated myocardial infarction) I21.4 Acute systolic heart failure I50.21 Heart failure chronicity: acute Pneumonia of both lungs due to infectious organism, unspecified part of lung J18.9 Pneumonia type: due to unspecified organism Lung location: unspecified part of lung Influenza A J10.1
--- NOTE | 2024-08-07 11:19 | PM.PN ---
Subjective Subjective: seen this morning resting comfortably in bed Vitals/I&O/Wt Last Vital Signs Temp 97.8 F 08/07/24 11:08 Pulse 73 08/07/24 11:08 Resp 24 H 08/07/24 11:08 BP 100/61 08/07/24 11:08 Pulse Ox 90 08/07/24 11:08 O2 Del Method Nasal Cannula 08/07/24 08:52 O2 Flow Rate 2 08/07/24 08:52 08/06/24 08/07/24 08/07/24 22:59 06:59 14:59 Intake Total 410 / 1030 50 / 1080 526 / 526 Output Total 350 / 925 250 / 1175 1000 / 1000 Balance 60 / 105 -200 / -95 -474 / -474 Weight last 48 hrs Weight 75.568 kg Weight 75.16 kg Physical Exam Narrative: General: No acute distress, AO x3 HEENT: PERRLA, pupils bilaterally equal and reactive, pallors not present Chest: Normal vesicular breath sounds, no added sounds, equal good air entry bilaterally CVS: S1-S2 regular, no murmurs, no tachycardia, no gallops, no rubs Abdomen: Soft, nontender, no organomegaly, bowel sounds present Neuro: No focal deficits, no facial deformity, AO x3, power 5/5 in all limbs Data 08/07/24 03:50 08/07/24 03:50 Micro: Microbiology 08/01/24 23:04 Blood Culture - Final Blood NO GROWTH AFTER 5 DAYS 08/01/24 22:31 Blood Culture - Final Blood NO GROWTH AFTER 5 DAYS A&P Assessment and plan (1) Severe sepsis: (2) Bilateral pneumonia: Qualifiers: Pneumonia type: due to unspecified organism Lung location: unspecified part of lung Qualified Code(s): J18.9 - Pneumonia, unspecified organism (3) Influenza A: (4) Acute hypoxemic respiratory failure: (5) NSTEMI (non-ST elevated myocardial infarction): Plan Leroy Olivo is a 59 year old male treated Hepatitis C, chronic HpEF, COPD, IDDM2, who came to the ED on 08/01/2024 for 2 days of progressive dyspnea. #Acute hypoxic respiratory failure- on 3L. Continue to monitor closely. He is at high risk of decompensating #Severe Sepsis: #Influenza A pneumonia #superimposed Multilobar Bacterial Pneumonia - noted on CTA chest/abd/pelvis - F/u BCx. Ordered Sputum cx - Started Tamiflu, Vanc, Zosyn, Azithromycin. #Lactic acidosis: continue to trend. #Acute COPD exacerbation - Ordered Xopenex/Ipratropium, Solumedrol, PPI #Elevated LFTs: congestive hepatopathy vs acute ischemic liver injury - s/p Furosemide 80mg IVP x 1 given in the ED. - Monitor closely. #Concern for Acute on chronic HFpEF - s/p Furosemide 80mg IVP given in the ED. - I am not convinced that he is in heart failure. I do believe that he will benefit from IVF, but at this time, efforts are being made to infuse antibiotics through one IVF, so will defer initiation of IVF to the Day Hospitalist. - Strict Is & Os. - F/u ECHO #HTN - Hydralazine IVP prn w/ parameters ordered. #IDDM2 - low dose SSI qAM and medium dose SSI qPM DVT ppx: Lovenox GI ppx: PPI. CODE STATUS: Per discussion wtih the patient, he is full code. Given my level of concern, about being high risk for respiratory demise, I have asked the warehouse order selector to move him to the ICU for closer monitoring August 03, 2024 Patient is alert awake oriented. Clinically currently appears to be much better. He is able to hold a conversation. Saturating 84% on room air, requiring 2 L/min supplemental O2. Continue empiric antibiotic coverage with Zosyn and azithromycin. MRSA nasal screen negative. Discontinue vancomycin. Creatinine trending up to 1.4 today. Reduce Lasix to 40 mg IV every 24 hours. Continue heparin drip. Echocardiogram showed moderately increased LV size. Severely decreased LVEF at 25%, grade 3 diastolic dysfunction. Will consult cardiology as these changes appear to be new compared to May 2022. August 04, 2024 Patient is alert awake and oriented. Respiratory status is better. Oxygen requirement down at 1 L/min. Kidney function stable. Repeat Lasix 20 mg IV today. Continue Zosyn and azithromycin. Discontinue IV steroids today. Continue heparin drip. With PTT monitoring. Dose adjusted today. Will likely proceed to coronary angiogram once volume is optimized. Add low-dose sliding scale insulin. August 05, 2024: Saturating 88-89% on RA, encouraged to keep his 02 soon. Appears stable from a resp standpoint today. Lasix 20mg iv daily added. Repeat CXR. D/c heparin drip after completing 72 hrs this afternoon. Continue ASA 81mg. Resume home dose of Plavix 75mg daily. Resume Coreg, at lower dose of 6.25mg BID. Will add losartan if BP allows. Continue to hold for now. Planned for coronoary angiogram once volume status is euvolemic. Currently net negative 5.6L. August 06, 2024 Saturating 90% on room air. Stable from a respiratory standpoint. Clinically euvolemic. Blood pressure trending towards hypertension now. Increase Coreg to home dose of 12.5 mg p.o. twice daily. Resume hydralazine at 10 3 times daily, will uptitrate to home dose of 25 3 times daily depending on blood pressure trend. Continue to hold losartan for now. Continue aspirin Plavix atorvastatin. Change Lasix from 20 IV daily to 20 p.o. daily. Completing 5 days of Tamiflu today. Completing 5 days of treatment with piperacillin/tazobactam today. Discontinue antivirals and antibiotics after completing total 5-day course. Overall clinically optimized from a respiratory standpoint to undergo coronary angiogram for NSTEMI. Per discussion with cardiology this is planned for Wednesday.Liver enzymes continue to imrpove, AST down to 187, ALT 798. 08/07/2024 laying flat in bed continue coreg, asp, plavix, zosyn has been completed stop tamiflu as 5 days completed continue lasix 20 daily plan for cath in am liver enzymes improving PDMP PDMP Reviewed: Not Reviewed Attestations Medical Necessity Statement*: coronary angiogram in AM Diagnoses Severe sepsis A41.9; R65.20 Pneumonia of both lungs due to infectious organism, unspecified part of lung J18.9 Pneumonia type: due to unspecified organism Lung location: unspecified part of lung Influenza A J10.1 Acute hypoxemic respiratory failure J96.01 NSTEMI (non-ST elevated myocardial infarction) I21.4
[2024-08-07 11:28] LABS: Glucose Point of Care 161 mg/dL (70-110)
--- NOTE | 2024-08-07 13:32 | PC.RESP ---
therapist busy in er
[2024-08-07] MEDS: LORazepam 0.5 mg Tablet PO (15:45)
[2024-08-07 17:04] LABS: Glucose Point of Care 230 mg/dL (70-110)
[2024-08-07] MEDS: sacubitril/valsartan 24-26 mg Tablet 1 EACH PO (17:32)
[2024-08-07 20:47] LABS: Glucose Point of Care 143 mg/dL (70-110)
[2024-08-07] MEDS: atorvastatin 40 mg Tablet PO (21:11)
[2024-08-07] MEDS: zolpidem 5 mg Tablet PO (23:19)
[2024-08-08] VITALS (8 sets, daily range): BP systolic 112–143; BP diastolic 59–89; PULSE 71–80; RESP 14–22; TEMP 36.6–36.8; O2SAT 91–98
[2024-08-08] MEDS: ipratropium 0.5 mg/2.5 mL Neb INHALATION (00:16)
[2024-08-08] MEDS: levalbuterol 1.25 mg/3 mL Neb INHALATION (00:16)
[2024-08-08 03:13] LABS: Basophils % 0.2 %; Eosinophils # 0.2 10^3/uL (0.0-0.8); Eosinophils % 1.4 %; Hematocrit 44.6 % (37-53); Lymphocytes # 1.5 10^3/uL (0.8-4.8); Lymphocytes % 13.2 %; Mean Corpuscular HGB Conc 33.6 g/dL (30-55); Mean Corpuscular Hemoglobin 31.3 pg (27-33); Mean Corpuscular Volume 93.1 fl (82-101); Mean Platelet Volume 12.2 fL (7.4-10.4); Monocytes % 8.6 %; Neutrophils # 8.79 10^3/uL (1.8-7.7); Neutrophils % 75.3 %; Nucleated Red Blood Cells % 0 %; Platelet Count 143 10^3/cmm (157-399); Red Blood Count 4.79 10^6/uL (3.85-5.65); Red Cell Distribution Width 11.9 % (12.1-15.1); White Blood Count 11.66 10^3/uL (3.29-11.43)
[2024-08-08] MEDS: sodium chloride 0.9% 1,000 ML 50 ML IV (03:14)
[2024-08-08 03:50] LABS: Anion Gap 12.9 (5-19); Blood Urea Nitrogen 21 mg/dL (8-23); Calcium 8.7 mg/dL (8.5-10.5); Carbon Dioxide 26 mmol/L (22-29); Chloride 104 mmol/L (98-107); Creatinine Clr Calc Pharmacy 72.1393; Glomerular Filtration Rate 91.9 mL/min (90-130); Glucose 276 mg/dL (65-115); Osmolality Calculated 301 mOsm/kg (285-295); Potassium 3.9 mmol/L (3.5-5.1); Sodium 139 mmol/L (136-145)
[2024-08-08] MEDS: clopidogrel 75 mg Tablet PO (05:09)
[2024-08-08] MEDS: diphenhydrAMINE 50 mg Capsule PO (05:09)
[2024-08-08] MEDS: aspirin 81 mg EC Tablet PO (05:09)
--- NOTE | 2024-08-08 05:40 | PC.RESP ---
Missed tx, RT in ER
[2024-08-08 06:07] LABS: Glucose Point of Care 221 mg/dL (70-110)
--- NOTE | 2024-08-08 06:22 | PC.NURSE ---
patient is off unit at [facility] of labor [facility] delivery at this time
--- NOTE | 2024-08-08 06:38 | W.PM.OPSUD ---
Surgery/Procedure H&P Update DATE OF PROCEDURE: August 08, 2024 DATE H&P PERFORMED: 08/03/24 H&P UPDATE INFORMATION: I have reviewed H&P completed within last 30 days, I have examined patient prior to procedure and No changes to prior documentation PREOP DIAGNOSIS: New onset of heart failure, CHF PLANNED PROCEDURE: Operation Date: 08/08/24 06:00 Proposed Procedures p Cardiac Catheterization(Left) - Jeff Ramey MD PATIENT REASSESSED PRIOR TO SEDATION, WITH NO CHANGE NOTED: Yes PHYSICAL EXAM: alert, oriented x 3, clear to auscultation bilaterally, regular rate & rhythm and operative site marked OTHER PERTINENT EXAM FINDINGS: All risk-benefit and alternative for the procedure has been explained to the patient. Patient understand 2% risk of stroke major bleed, patient understand 5% risk of minor bleeding oozing infection hematoma minor bleeding major bleeding, laceration vascular or CT surgery urgently or emergently. Patient would like to proceed with that AIRWAY EVAL/ANESTHESIA PLAN: ASA II, Risks, benefits & alternatives of sedation and/or procedure discussed and Patient agrees to continue as planned
--- NOTE | 2024-08-08 07:19 | PM.PROC ---
Procedure Note: Date of procedure: 08/08/24 Pre-procedure diagnosis: Worsening of heart failure/LV dysfunction Post-procedure diagnosis: same Procedure: Left heart catheterization Left main has luminal irregularity LAD has luminal irregularity without significant stenosis, diagonal is small caliber but long vessel it has proximal long 80% stenosis Left circumflex has distal small caliber vessel with 90% stenosis, obtuse marginal is a large-caliber and long vessel with proximal long 80% stenosis Obtuse marginal 2 has mid 90% stenosis it is small caliber vessel RCA is a dominant vessel without significant stenosis but luminal irregularity Left ventricle end-diastolic pressure within normal limit Left ventricle ejection fraction is severely depressed less than 30% with global hypokinesis Plan: Please note that patient is very noncompliant and not reliable we may need to establish the compliance and assess his capability of taking medicine until then we will treat him medically Continue aspirin and statin add Plavix Continue beta-johan ROSALINA inhibitor or Entresto Coding Level of Care Code Acute Code for Yannick Duenas
--- NOTE | 2024-08-08 07:27 | PC.NURSE ---
Patient came back to CSU from general production laborer with a right radial TR-band.
[2024-08-08] MEDS: insulin lispro 100 unit/1 mL SUBCUT ×2 (08:23→12:38)
[2024-08-08] MEDS: hyDRALAzine 10 mg Tablet PO (08:24)
[2024-08-08] MEDS: FUROsemide 20 mg Tablet PO (08:24)
[2024-08-08] MEDS: carvedilol 12.5 mg Tablet PO (08:24)
[2024-08-08] MEDS: sacubitril/valsartan 24-26 mg Tablet 1 EACH PO (08:24)
[2024-08-08] MEDS: pantoprazole DR 40 mg Tablet PO (08:24)
[2024-08-08] MEDS: docusate sodium 100 mg Capsule 200 MG PO (08:24)
[2024-08-08] MEDS: sodium chloride 0.9% 1,000 ML 100 ML IV (08:25)
--- NOTE | 2024-08-08 09:51 | PC.NURSE ---
Provider asked nursing to enter a home O2 evaluation.
[2024-08-08 11:23] LABS: Glucose Point of Care 206 mg/dL (70-110)
--- NOTE | 2024-08-08 12:01 | P.PN_ITS ---
Subjective 2 Subjective: seen this morning pt s/p cath, has TR band on resting in bed, requesting to go home, waiting to be seen by cardiology discussed lifevest, pt would like to have one. Vitals/I&O/Wt Last Vital Signs Temp 97.9 F 08/08/24 11:34 Pulse 74 08/08/24 11:34 Resp 18 08/08/24 11:34 BP 112/59 08/08/24 11:34 Pulse Ox 93 08/08/24 11:34 O2 Del Method Room Air 08/08/24 11:34 O2 Flow Rate 1 08/08/24 07:51 08/07/24 08/08/24 08/08/24 22:59 06:59 14:59 Intake Total 944 / 1830 0 / 1830 240 / 240 Output Total 100 325 / 325 Balance 943 / 829 0 / 829 -85 / -85 Weight last 48 hrs Weight 76.34 kg Weight 76.294 kg Weight 75.568 kg Physical Exam 2 Narrative: General: No acute distress, AO x3 HEENT: PERRLA, pupils bilaterally equal and reactive, pallors not present Chest: Normal vesicular breath sounds, no added sounds, equal good air entry bilaterally CVS: S1-S2 regular, no murmurs, no tachycardia, no gallops, no rubs Abdomen: Soft, nontender, no organomegaly, bowel sounds present Neuro: No focal deficits, no facial deformity, AO x3, power 5/5 in all limbs Data 08/08/24 02:41 08/08/24 02:41 A&P Assessment and plan (1) Severe sepsis: (2) Bilateral pneumonia: Qualifiers: Lung location: unspecified part of lung Pneumonia type: due to unspecified organism Qualified Code(s): J18.9 - Pneumonia, unspecified organism (3) Influenza A: (4) Acute hypoxemic respiratory failure: (5) NSTEMI (non-ST elevated myocardial infarction): Plan Leroy Olivo is a 59 year old male treated Hepatitis C, chronic HpEF, COPD, IDDM2, who came to the ED on 08/01/2024 for 2 days of progressive dyspnea. #Acute hypoxic respiratory failure- on 3L. Continue to monitor closely. He is at high risk of decompensating #Severe Sepsis: #Influenza A pneumonia #superimposed Multilobar Bacterial Pneumonia - noted on CTA chest/abd/pelvis - F/u BCx. Ordered Sputum cx - Started Tamiflu, Vanc, Zosyn, Azithromycin. #Lactic acidosis: continue to trend. #Acute COPD exacerbation - Ordered Xopenex/Ipratropium, Solumedrol, PPI #Elevated LFTs: congestive hepatopathy vs acute ischemic liver injury - s/p Furosemide 80mg IVP x 1 given in the ED. - Monitor closely. #Concern for Acute on chronic HFpEF - s/p Furosemide 80mg IVP given in the ED. - I am not convinced that he is in heart failure. I do believe that he will benefit from IVF, but at this time, efforts are being made to infuse antibiotics through one IVF, so will defer initiation of IVF to the Day Hospitalist. - Strict Is & Os. - F/u ECHO #HTN - Hydralazine IVP prn w/ parameters ordered. #IDDM2 - low dose SSI qAM and medium dose SSI qPM DVT ppx: Lovenox GI ppx: PPI. CODE STATUS: Per discussion wtih the patient, he is full code. Given my level of concern, about being high risk for respiratory demise, I have asked the customs house broker to move him to the ICU for closer monitoring August 03, 2024 Patient is alert awake oriented. Clinically currently appears to be much better. He is able to hold a conversation. Saturating 84% on room air, requiring 2 L/min supplemental O2. Continue empiric antibiotic coverage with Zosyn and azithromycin. MRSA nasal screen negative. Discontinue vancomycin. Creatinine trending up to 1.4 today. Reduce Lasix to 40 mg IV every 24 hours. Continue heparin drip. Echocardiogram showed moderately increased LV size. Severely decreased LVEF at 25%, grade 3 diastolic dysfunction. Will consult cardiology as these changes appear to be new compared to May 2022. August 04, 2024 Patient is alert awake and oriented. Respiratory status is better. Oxygen requirement down at 1 L/min. Kidney function stable. Repeat Lasix 20 mg IV today. Continue Zosyn and azithromycin. Discontinue IV steroids today. Continue heparin drip. With PTT monitoring. Dose adjusted today. Will likely proceed to coronary angiogram once volume is optimized. Add low-dose sliding scale insulin. August 05, 2024: Saturating 88-89% on RA, encouraged to keep his 02 soon. Appears stable from a resp standpoint today. Lasix 20mg iv daily added. Repeat CXR. D/c heparin drip after completing 72 hrs this afternoon. Continue ASA 81mg. Resume home dose of Plavix 75mg daily. Resume Coreg, at lower dose of 6.25mg BID. Will add losartan if BP allows. Continue to hold for now. Planned for coronoary angiogram once volume status is euvolemic. Currently net negative 5.6L. August 06, 2024 Saturating 90% on room air. Stable from a respiratory standpoint. Clinically euvolemic. Blood pressure trending towards hypertension now. Increase Coreg to home dose of 12.5 mg p.o. twice daily. Resume hydralazine at 10 3 times daily, will uptitrate to home dose of 25 3 times daily depending on blood pressure trend. Continue to hold losartan for now. Continue aspirin Plavix atorvastatin. Change Lasix from 20 IV daily to 20 p.o. daily. Completing 5 days of Tamiflu today. Completing 5 days of treatment with piperacillin/tazobactam today. Discontinue antivirals and antibiotics after completing total 5-day course. Overall clinically optimized from a respiratory standpoint to undergo coronary angiogram for NSTEMI. Per discussion with cardiology this is planned for Wednesday.Liver enzymes continue to imrpove, AST down to 187, ALT 798. 08/07/2024 laying flat in bed continue coreg, asp, plavix, zosyn has been completed stop tamiflu as 5 days completed continue lasix 20 daily plan for cath in am liver enzymes improving 08/08/2024 continue coreg, asp plavix, order lasix 40 iv x1 today, pt reports air hunger, sats at 98% , does not qualify for home o2 check chest xray cardiology to order lifevest pt s/p cath, await cardiology recommendations continue medical mgmt continue entresto PDMP PDMP Reviewed: Not Reviewed Attestations 2 Medical Necessity Statement*: s/p cath, continue to monitor Diagnoses Severe sepsis A41.9; R65.20 Pneumonia of both lungs due to infectious organism, unspecified part of lung J18.9 Lung location: unspecified part of lung Pneumonia type: due to unspecified organism Influenza A J10.1 Acute hypoxemic respiratory failure J96.01 NSTEMI (non-ST elevated myocardial infarction) I21.4
--- NOTE | 2024-08-08 12:14 | XR_ITS ---
WS: [id number] Exam: XR chest 1V portable [id number] Date/Time of Exam: 08/08/2024 12:14 PM Reason For Exam: pulm congestion Comparison 08/05/2024. Lungs are clear. Unremarkable cardiomediastinal silhouette. No pleural effusions. Bony structures are intact. Old LEFT rib fractures. XR/XR chest 1V portable [id number] IMPRESSION: 1. Pulmonary infiltrates have cleared since the previous study.
[2024-08-08] MEDS: FUROsemide 10 mg/mL SDV 4mL 40 MG IVP (12:38)
--- NOTE | 2024-08-08 13:41 | P.PN_ITS ---
<Statement entered by Jeff Ramey MD - 08/08/24 20:51> Patient was evaluated and cared for in conjunction with an advanced practice practitioner. I personally examined the patient and reviewed the chart and all pertinent data including imaging, telemetry, and laboratory results. I discussed the patient in detail with the advanced practice practitioner. Please see their note for complete H&P testing result and agreed upon plan of care for the patient. Patient denies any complaint underwent left heart cath noted to have significant two-vessel disease, LAD was not involved involvement disease burden appears marginal and diagonal. Patient is very noncompliant and does not give us any assurance that he will take medications we will therefore manage him medically GENERAL: Patient is alert, awake and oriented x3. HEART: Regular S1 and S2. No murmur, rub or gallop. LUNGS: Clear to auscultate bilaterally. CENTRAL NERVOUS SYSTEM: Grossly nonfocal. EXTREMITIES: Lower extremities with out edema bilaterally. Assessment and plan Cardiomyopathy New onset of heart failure Continue aspirin statin beta-johan add isosorbide mononitrate ROSALINA inhibitor and diuretics 40 mg of Lasix daily Subjective 2 Subjective: At the time of my assessment and rounds this AM, patient was resting without complaints. I did discuss a life vest with him, and he would like to wear that. We will order that today. LHC showed small caliber circ with 90% stenosis, small caliber long segment 80% stenosis in the diag, OM 2 with mid 90% stenosis small caliber vessel, EF less than 30% with global hypokinsesis. Vitals/I&O/Wt Last Vital Signs Temp 97.9 F 08/08/24 11:34 Pulse 74 08/08/24 11:34 Resp 18 08/08/24 11:34 BP 112/59 08/08/24 11:34 Pulse Ox 93 08/08/24 11:34 O2 Del Method Room Air 08/08/24 11:34 O2 Flow Rate 1 08/08/24 07:51 08/07/24 08/08/24 08/08/24 22:59 06:59 14:59 Intake Total 944 / 1830 0 / 1830 480 / 480 Output Total 1001 325 / 325 Balance 943 / 829 0 / 829 155 / 155 Weight last 48 hrs Weight 168 lb 4.8 oz Weight 168 lb 3.2 oz Weight 166 lb 9.6 oz Physical Exam 2 Narrative: General: No apparent distress HENMT: normoceophalic Respiratory: Normal respiratory effort, clear throughout, no use of accessory muscles Cardio: No JVD, regular rate, regular rhythm, S1 S2 normal, no murmurs, peripheral pulses 2+ throughout GI: Normal to inspection, nondistended Extremities: no cyanosis or edema Neuro: Alert and oriented x4, no focal motor deficits Psych: Affect normal Skin: No rashes or lesions noted, no wounds Data 08/08/24 02:41 08/08/24 02:41 A&P Assessment and plan (1) HTN (hypertension): Qualifiers: Hypertension type: primary hypertension Qualified Code(s): I10 - Essential (primary) hypertension (2) Acute diastolic CHF (congestive heart failure): (3) CHF exacerbation: Qualifiers: Heart failure type: combined systolic and diastolic Qualified Code(s): I50.43 - Acute on chronic combined systolic (congestive) and diastolic (congestive) heart failure (4) NSTEMI (non-ST elevated myocardial infarction): (5) Systolic heart failure: Qualifiers: Heart failure chronicity: acute Qualified Code(s): I50.21 - Acute systolic (congestive) heart failure (6) Bilateral pneumonia: Qualifiers: Pneumonia type: due to unspecified organism Lung location: unspecified part of lung Qualified Code(s): J18.9 - Pneumonia, unspecified organism (7) Influenza A: Plan Patient appeared well compensated at the time of my exam. Will continue coreg and Entresto. Will order life vest due to severely decreased EF. Once this is in place, if patient is doing well may be discharged at that time, possibly tomorrow. PDMP PDMP Reviewed: Not Reviewed Attestations 2 Medical Necessity Statement*: Deferred to primary. Coding Level of Care Code Acute Code for [facility] Fwd Diagnoses Primary hypertension I10 Hypertension type: primary hypertension Acute diastolic CHF (congestive heart failure) I50.31 Acute on chronic combined systolic and diastolic congestive heart failure I50.43 Heart failure type: combined systolic and diastolic NSTEMI (non-ST elevated myocardial infarction) I21.4 Acute systolic heart failure I50.21 Heart failure chronicity: acute Pneumonia of both lungs due to infectious organism, unspecified part of lung J18.9 Pneumonia type: due to unspecified organism Lung location: unspecified part of lung Influenza A J10.1
--- NOTE | 2024-08-08 15:34 | PC.NURSE ---
Patient's TR-band is removed slowly, letting air out 2 ml's at a time. TR-band is removed and a dressing is applied. No hematoma is noted at the time. Patient is reeducated that he is not to use his right wrist/hand until tomorrow.
--- NOTE | 2024-08-08 15:36 | PC.NURSE ---
Provider is updated that patient is wanting to leave right now. He said that he will not wear the life vest. Nursing and providers have educated the patient about the importance of the life vest. He said I will now wait for it or wear it anyway. I am leaving! Nursing explained that he will need to sign AMA papers and he said get them papers for me to sign! Patient became very agitated when nursing said that his IV needed to be removed. Nursing had the CHIEF OF STAFF came in the room with her to remove the IV and have the patient sign the AMA papers. Patient allowed nursing to remove the IV and did sign the papers.
[2024-08-09 12:04] LABS: HEP C RNA Viral Load Quant <1.18 NOT DETECTED Log IU/mL (NOT DETECTED); HEP C RNA Viral Load Quant <15 NOT DETECTED IU/mL (NOT DETECTED)
== END 2024-08-08 15:53 | disposition left against medical advice (07) | DRG 871 ==
LOC: ER 08-02 02:31 → CSU 08-02 09:04 → ICU 08-02 13:13 → CSU 08-03 16:21
PROVIDERS: Internal Medicine Cardiovascular Disease; Nurse Practitioner Family; Student in an Organized Health Care Education/Training Program; Admitting Provider Internal Medicine; Emergency Provider Emergency Medicine; PCP Family Medicine; Visit Provider Internal Medicine
PROC: B2111ZZ Fluoroscopy of Multiple Coronary Arteries using Low Osmolar Contrast (ICD-10-PCS; principal; 2024-08-08 06:00)
DX: A41.9 Sepsis, unspecified organism (principal); I21.4 Non-ST elevation (NSTEMI) myocardial infarction; I50.33 Acute on chronic diastolic (congestive) heart failure; J10.00 Influenza due to other identified influenza virus with unspecified type of pneumonia; J96.01 Acute respiratory failure with hypoxia; J44.1 Chronic obstructive pulmonary disease with (acute) exacerbation; J44.0 Chronic obstructive pulmonary disease with (acute) lower respiratory infection; E87.20 Acidosis, unspecified; R65.20 Severe sepsis without septic shock; I11.0 Hypertensive heart disease with heart failure; I25.10 Atherosclerotic heart disease of native coronary artery without angina pectoris; Z98.61 Coronary angioplasty status; E11.42 Type 2 diabetes mellitus with diabetic polyneuropathy; F15.11 Other stimulant abuse, in remission; R00.0 Tachycardia, unspecified; Z79.4 Long term (current) use of insulin; D50.9 Iron deficiency anemia, unspecified; F17.210 Nicotine dependence, cigarettes, uncomplicated; F17.290 Nicotine dependence, other tobacco product, uncomplicated; Z79.82 Long term (current) use of aspirin; Z79.02 Long term (current) use of antithrombotics/antiplatelets; I35.0 Nonrheumatic aortic (valve) stenosis; Z91.199 Patient's noncompliance with other medical treatment and regimen due to unspecified reason; Z99.81 Dependence on supplemental oxygen; Z53.29 Procedure and treatment not carried out because of patient's decision for other reasons; B18.2 Chronic viral hepatitis C
CPT/HCPCS: 36415; 36416; 36600; 71045; 71275; 74177; 76705; 80048; 80051; 80053; 80074; 80306; 81001; 82140; 82330; 82803; 82805; 82962; 83605; 83735; 83880; 84484; 85025; 85610; 85730; 86140; 87040; 87070; 87205; 87522; 87637; 93005; 93306; 93458; 94640; 94664; 94760; 96365; 96367; 96372; 96374; 96375; 96376; 99152; 99153; 99285; C1769; C1887; C1894; J0360; J0456; J1644; J1650; J1815; J1938; J1940; J2020; J2185; J2250; J2270; J2405; J2470; J2543; J2919; J3010; J3370; J3372; J3490; J7030; J7050; J7613; J7614; J7644; J9999; Q0163; Q9967

== ENCOUNTER 2025-04-29 22:05 | Inpatient (IN) | payer MEDICAID, SELFPAY ==
[2025-04-29 22:15] VITALS: BP 161/90; PULSE 107; RESP 24; TEMP 37.1; O2SAT 93; BMI 28.0
--- OUTSIDE RECORDS SUMMARY | 2025-04-29 22:16 | XMS_ITS | Encounter Summary ---
Author Organization [facility] Address [address] [place] [address] Care Team Providers Care Electronic Prepress Operator Name Role Phone Unavailable Primary Care Provider Unavailabl e Encounter Details Date Type Department Care Team (Late st Contact Info) Description 06/08/2022 Lab Requisition [facility] [address] [place] [address] Fabiola Mendez PA-C [address] [place] [phone] Social History Tobacco Use Types Packs/Day Years Used Date Smoking Tobacco: Never Assessed Sex and Gender Information Value Date Recorded Sex Assigned at Not on file Legal Sex Male 7:03 AM TELEVISION SCRIPT WRITER Gender Identity Not on file Sexual Orientation Not on file documented as of this encounter Plan of Treatment Not on file documented as of this encounter Procedures Procedure Name Priority Date/Time Associated Diagnosis Comments VANCOMYCIN LEVEL TROUGH Routine 06/08/2022 11:01 AM TELEVISION SCRIPT WRITER documented in this encounter Results * (ABNORMAL) VANCOMYCIN LEVEL TROUGH (06/08/2022 11:01 AM TELEVISION SCRIPT WRITER) VANCOMYCIN, TROUGH 18.0(H) 10.0 - 17.0 ug/mL 06/08/2022 1:02 PM TELEVISION SCRIPT WRITER [facility] Blood Collection / Unknown 06/08/2022 11:01 AM TELEVISION SCRIPT WRITER 06/08/2022 12:46 PM TELEVISION SCRIPT WRITER Fabiola Mendez PA-C CHEMISTRY ORDERABLES Final Res [facility] CLMA # [id number] [facility] [address] [place] [address] documented in this encounter Visit Diagnoses Not on filedocumented in this encounter
--- OUTSIDE RECORDS SUMMARY | 2025-04-29 22:16 | XMS_ITS | Encounter Summary ---
Author Organization [facility] Address [address] [place] [address] Care Team Providers Care Cardiac Rn Name Role Phone Unavailable Primary Care Provider Unavailabl e Encounter Details Date Type Department Care Team (Late st Contact Info) Description 06/05/2022 Lab Requisition [facility] Laboratory Services [address] [place] [address] Rowdy Cook NP [address] [facility] [address] [place] [address] Social History Tobacco Use Types Packs/Day Years Used Date Smoking Tobacco: Never Assessed Sex and Gender Information Value Date Recorded Sex Assigned at Not on file Legal Sex Male 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 TRANSFER PROFESSOR Gender Identity Not on file Sexual Orientation Not on file documented as of this encounter Plan of Treatment Not on file documented as of this encounter Procedures Procedure Name Priority Date/Time Associated Diagnosis Comments VANCOMYCIN LEVEL TROUGH Stat 06/05/2022 4:00 AM TRANSFER PROFESSOR documented in this encounter Results * VANCOMYCIN LEVEL TROUGH (06/05/2022 4:00 AM TRANSFER PROFESSOR) VANCOMYCIN, TROUGH 13.8 10.0 - 17.0 ug/mL 06/05/2022 5:36 AM TRANSFER PROFESSOR [facility] Blood Collection / Unknown 06/05/2022 4:00 AM TRANSFER PROFESSOR 06/05/2022 5:21 AM TRANSFER PROFESSOR Rowdy Cook NP CHEMISTRY ORDERABLES Fin al Result [facility] # [id number] [facility] [address] [place] [address] documented in this encounter Visit Diagnoses Not on filedocumented in this encounter
--- OUTSIDE RECORDS SUMMARY | 2025-04-29 22:16 | XMS_ITS | Encounter Summary ---
Author Organization [facility] Address [address] [place] [address] Care Team Providers Care Donkey Ride Operator Name Role Phone Unavailable Primary Care Provider Unavailabl e Encounter Details Date Type Department Care Team (Late st Contact Info) Description 05/23/2022 Lab Requisition [facility] Laboratory Services [address] [place] [address] Rowdy Cook NP [address] [facility] [address] [place] [address] Social History Tobacco Use Types Packs/Day Years Used Date Smoking Tobacco: Never Assessed Sex and Gender Information Value Date Recorded Sex Assigned at Not on file Legal Sex Male 7:03 AM TRANSCRIPTION TYPIST Gender Identity Not on file Sexual Orientation Not on file documented as of this encounter Plan of Treatment Not on file documented as of this encounter Procedures Procedure Name Priority Date/Time Associated Diagnosis Comments TROPONIN Stat 05/23/2022 12:18 AM TRANSCRIPTION TYPIST BRAIN NATRIURETIC PEPTIDE, BNP OR PROBNP Stat 05/23/2022 12:18 AM TRANSCRIPTION TYPIST documented in this encounter Results * (ABNORMAL) BRAIN NATRIURETIC PEPTIDE, BNP OR PROBNP (05/23/2022 12:18 AM TRANSCRIPTION TYPIST) PROBNP, N TERMINAL 2,745(H) 0 - 125 pg/mL 05/23/2022 1:10 AM TRANSCRIPTION TYPIST [facility] Blood Collection / Unknown 05/23/2022 12:18 AM TRANSCRIPTION TYPIST 05/23/2022 12:52 AM TRANSCRIPTION TYPIST Rowdy Cook SHAMPOO PERSON CHEMISTRY ORDERABLES Fin al Result Performing Organization Address [facility] de Phone Number [facility] [employer] [facility] CLIA # [id number] [address] [place] [address] * (ABNORMAL) TROPONIN (05/23/2022 12:18 AM TRANSCRIPTION TYPIST) TROPONIN T, 5TH GEN 17(H) <=15 ng/L 05/23/2022 1:08 AM TRANSCRIPTION TYPIST [facility] [employer] [facility] Blood Collection / Unknown 05/23/2022 12:18 AM TRANSCRIPTION TYPIST 05/23/2022 12:52 AM TRANSCRIPTION TYPIST Narrative [facility] [employer] [facility] - 05/23/2022 1:08 AM TRANSCRIPTION TYPIST Troponin elevated. Rowdy Cook SHAMPOO PERSON CHEMISTRY ORDERABLES Fin al Result Performing Organization Address [facility] de Phone Number [facility] CLIA # [id number] [address] [place], [place] [id number] documented in this encounter Visit Diagnoses Not on filedocumented in this encounter
--- OUTSIDE RECORDS SUMMARY | 2025-04-29 22:16 | XMS_ITS | Encounter Summary ---
Author Organization [facility] Address [address] [place] [address] Care Team Providers Care Cloth Winding Supervisor Name Role Phone Unavailable Primary Care Provider Unavailabl e Encounter Details Date Type Department Care Team (Late st Contact Info) Description 06/08/2022 Lab Requisition [facility] Laboratory Services [address] [facility] [place] [address] Fabiola Mendez PA-C [address] [place] [address] Social History Tobacco Use Types Packs/Day Years Used Date Smoking Tobacco: Never Assessed Sex and Gender Information Value Date Recorded Sex Assigned at Not on file Legal Sex Male 7:03 AM GRASSLAND CONSERVATIONIST Gender Identity Not on file Sexual Orientation Not on file documented as of this encounter Plan of Treatment Not on file documented as of this encounter Procedures Procedure Name Priority Date/Time Associated Diagnosis Comments CBC WITH DIFFERENTIAL Routine 06/08/2022 12:00 AM GRASSLAND CONSERVATIONIST COMPREHENSIVE METABOLIC PANEL Routine 06/08/2022 12:00 AM GRASSLAND CONSERVATIONIST documented in this encounter Results * (ABNORMAL) CBC WITH DIFFERENTIAL (06/08/2022 12:00 AM GRASSLAND CONSERVATIONIST) [facility] WBC 8.5 4.8 - 10.8 K/uL 06/08/2022 5:55 AM GRASSLAND CONSERVATIONIST [facility] RBC 3.83(L) 4.60 - 6.20 M/uL 06/08/2022 5:55 AM GRASSLAND CONSERVATIONIST [facility] HEMOGLOBIN 12.0(L) 14.0 - 18.0 g/dL 06/08/2022 5:55 AM [facility] HEMATOCRIT 38.2(L) 41.0 - 53.0 % 06/08/2022 5:55 AM [facility] MCV 99.7 84.0 - 103.0 fL 06/08/2022 5:55 AM [facility] MCH 31.3 27.0 - 34.0 pg 06/08/2022 5:55 AM [facility] MCHC 31.4 30.0 - 35.0 g/dL 06/08/2022 5:55 AM [facility] [employer] [facility] RDW 13.4 11.0 - 14.5 % 06/08/2022 5:55 AM [facility] RDW-STDEV 49.5 37.0 - 54.0 fL 06/08/2022 5:55 AM [facility] PLATELETS 215 140 - 440 K/uL 06/08/2022 5:55 AM [facility] MPV 12.3 8.9 - 12.8 fL 06/08/2022 5:55 AM [facility] NEUTROPHILS 54 42 - 75 % 06/08/2022 5:55 AM [facility] LYMPHOCYTES 32 24 - 44 % 06/08/2022 5:55 AM [facility] MONOCYTES 11(H) 2 - 10 % 06/08/2022 5:55 AM [facility] [employer] [facility] EOSINOPHILS 2 0 - 7 % 06/08/2022 5:55 AM [facility] [employer] [facility] BASOPHILS 0 0 - 1 % 06/08/2022 5:55 AM [facility] IMMATURE GRANULOCYTES 0 0 - 2 % 06/08/2022 5:55 AM [facility] NEUTROPHIL ABSOLUTE 4.61 2.00 - 8.00 K/uL 06/08/2022 5:55 AM [facility] LYMPHOCYTE ABSOLUTE 2.67 1.20 - 4.00 K/uL 06/08/2022 5:55 AM [facility] [employer] [facility] MONOCYTE ABSOLUTE 0.95(H) 0.10 - 0.60 K/uL 06/08/2022 5:55 AM [facility] EOSINOPHIL ABSOLUTE 0.19 0.00 - 0.70 K/uL 06/08/2022 5:55 AM [facility] BASOPHILS ABSOLUTE 0.03 0.00 - 0.20 K/uL 06/08/2022 5:55 AM [facility] IMMATURE GRANULOCYTES ABSOLUTE 0.03 0.00 - 0.10 K/uL 06/08/2022 5:55 AM [facility] Blood Collection / Unknown 06/08/2022 06/08/2022 5:45 AM GRASSLAND CONSERVATIONIST Fabiola Mendez PA-C HEMATOLOGY ORDERABLES Final Re sult [facility] # [id number] [address] [place] [address] * (ABNORMAL) COMPREHENSIVE METABOLIC PANEL (06/08/2022 12:00 AM GRASSLAND CONSERVATIONIST) SODIUM 139 136 - 145 mmol/L 06/08/2022 6:25 AM [facility] POTASSIUM 4.0 3.5 - 5.1 mmol/L 06/08/2022 6:25 AM [facility] CHLORIDE 104 98 - 107 mmol/L 06/08/2022 6:25 AM [facility] CO2 24 22 - 29 mmol/L 06/08/2022 6:25 AM [facility] CALCIUM 9.4 8.6 - 10.0 mg/dL 06/08/2022 6:25 AM [facility] BUN 17 6 - 20 mg/dL 06/08/2022 6:25 AM [facility] CREATININE 0.68 0.67 - 1.17 mg/dL 06/08/2022 6:25 AM [facility] GLUCOSE 185(H) 74 - 99 mg/dL 06/08/2022 6:25 AM [facility] TOTAL PROTEIN 7.8 6.4 - 8.3 g/dL 06/08/2022 6:25 AM [facility] ALBUMIN 3.6 3.5 - 5.2 g/dL 06/08/2022 6:25 AM [facility] BILIRUBIN TOTAL 0.3 0.2 - 1.0 mg/dL 06/08/2022 6:25 AM [facility] ALKALINE PHOSPHATASE 152(H) 40 - 129 U/L 06/08/2022 6:25 AM [facility] AST 71(H) 10 - 50 U/L 06/08/2022 6:25 AM [facility] ALT 81(H) <=50 U/L 06/08/2022 6:25 AM [facility] GFR >60 >=60 mL/min/1.7 3 sq meter 06/08/2022 6:25 AM [facility] Comment:eGFR calculated with 2020 CKD-EPI equation. Vegetarian diet, extremely high or low muscle mass, and may affect results. Cystatin C with Glomerular Filtration Rate is a suitable alternative for these patients. ANION GAP 11 9 - 20 mmol/L 06/08/2022 6:25 AM [facility] Blood Collection / Unknown 06/08/2022 06/08/2022 5:45 AM GRASSLAND CONSERVATIONIST Fabiola Mendez PA-C CHEMISTRY ORDERABLES Final Res ult [facility] CLIA # [id number] [facility] [id number] documented in this encounter Visit Diagnoses Not on filedocumented in this encounter
--- OUTSIDE RECORDS SUMMARY | 2025-04-29 22:16 | XMS_ITS | Encounter Summary ---
Author Organization [facility] Address [address] [place] [address] Care Team Providers Care Project Coordinator Name Role Phone Unavailable Primary Care Provider Unavailabl e Encounter Details Date Type Department Care Team (Late st Contact Info) Description 05/21/2022 Lab Requisition [facility] Laboratory Services [address] [place] [address] [place] [address] Daniel Barnes, DO [address] [place] [address] Social History Tobacco Use Types Packs/Day Years Used Date Smoking Tobacco: Never Assessed Sex and Gender Information Value Date Recorded Sex Assigned at Not on file Legal Sex Male 7:03 AM DYE HOUSE VAT WORKER Gender Identity Not on file Sexual Orientation Not on file documented as of this encounter Plan of Treatment Not on file documented as of this encounter Procedures Procedure Name Priority Date/Time Associated Diagnosis Comments MISCELLANEOUS LAB TEST Routine 7:49 AM DYE HOUSE VAT WORKER documented in this encounter Results * MISCELLANEOUS LAB TEST (05/21/2022 7:49 AM DYE HOUSE VAT WORKER) MISCELLANEOUS LAB TEST See Note 05/22/2022 7:53 AM DYE HOUSE VAT WORKER [facility] Comment: HIV 1/2 ANTIGEN/ANTIBODY,FOURTH GENERATION W/RFL TEST NAME RESULT FLAG UNITS REF RANGE ========= ====== ==== ===== ========= HIV 1+2 Ab+HIV1 p24 Ag SerPl Ql IA NON-REACTIVE NON-REACTIVE HIV-1 antigen and HIV-1/HIV-2 antibodies were not detected. There is no laboratory evidence of HIV infection. PLEASE NOTE: This information has been disclosed to you from records whose confidentiality may be protected by state law. If your state requires such protection, then the state law prohibits you from making any further disclosure of the information without the specific written consent of the person to whom it pertains, or as otherwise permitted by law. A general authorization for the release of medical or other information is NOT sufficient for this purpose. For additional information please refer to http://education.Educents/faq/POA566 (This link is being provided for informational/ educational purposes only.) The performance of this assay has not been clinically validated in patients less than 2 years old. Test Performed at: [facility] [id number] [place] [phone] Lukas Patel D.O., MPH Blood Collection / Unknown 05/21/2022 7:49 AM DYE HOUSE VAT WORKER 05/21/2022 9:18 AM DYE HOUSE VAT WORKER Narrative [facility] - 05/22/2022 7:53 AM DYE HOUSE VAT WORKER Performing Organization Information: Site ID: [id number] Name: [employer] [facility] [place] Address: [id number] [place] [phone] Director: Lukas Patel D.O., MPH Daniel Barnes DO CHEMISTRY ORDERABLES Final R esult [facility] documented in this encounter Visit Diagnoses Not on filedocumented in this encounter
--- OUTSIDE RECORDS SUMMARY | 2025-04-29 22:16 | XMS_ITS | Encounter Summary ---
Author Organization [facility] Address [address] [place] [address] Care Team Providers Care Translational Specialist Name Role Phone Unavailable Primary Care Provider Unavailabl e Encounter Details Date Type Department Care Team (Late st Contact Info) Description 05/30/2022 Lab Requisition [facility] Laboratory Services [address] [place] [address] Rowdy Cook NP [address] [facility] [address] [place] [address] Social History Tobacco Use Types Packs/Day Years Used Date Smoking Tobacco: Never Assessed Sex and Gender Information Value Date Recorded Sex Assigned at Not on file Legal Sex Male 7:03 AM MILITARY SOURCE OPERATIONS SPECIALIST Gender Identity Not on file Sexual Orientation Not on file documented as of this encounter Plan of Treatment Not on file documented as of this encounter Procedures Procedure Name Priority Date/Time Associated Diagnosis Comments VANCOMYCIN LEVEL TROUGH Routine 05/30/2022 3:06 AM MILITARY SOURCE OPERATIONS SPECIALIST documented in this encounter Results * (ABNORMAL) VANCOMYCIN LEVEL TROUGH (05/30/2022 3:06 AM MILITARY SOURCE OPERATIONS SPECIALIST) VANCOMYCIN, TROUGH 17.4(H) 10.0 - 17.0 ug/mL 05/30/2022 5:45 AM MILITARY SOURCE OPERATIONS SPECIALIST [facility] Blood Collection / Unknown 05/30/2022 3:06 AM MILITARY SOURCE OPERATIONS SPECIALIST 05/30/2022 5:13 AM MILITARY SOURCE OPERATIONS SPECIALIST us Rowdy Cook NP CHEMISTRY ORDERABLES Fin al Result Performing Organization Address City/[facility]/ZIP Co de Phone Number [facility] # [id number] [address] [place] [address] documented in this encounter Visit Diagnoses Not on filedocumented in this encounter
--- OUTSIDE RECORDS SUMMARY | 2025-04-29 22:16 | XMS_ITS | Encounter Summary ---
Author Organization [facility] Address [address] [place] [address] Care Team Providers Care Carpet Cleaner Name Role Phone Unavailable Primary Care Provider Unavailabl e Encounter Details Date Type Department Care Team (Late st Contact Info) Description 06/18/2022 Lab Requisition [facility] Laboratory Services [address] [place] [address] [place] [address] Fabiola Mendez PA-C [address] [place] [address] Social History Tobacco Use Types Packs/Day Years Used Date Smoking Tobacco: Never Assessed Sex and Gender Information Value Date Recorded Sex Assigned at Not on file Legal Sex Male 7:03 AM TACK DRILLER Gender Identity Not on file Sexual Orientation Not on file documented as of this encounter Plan of Treatment Not on file documented as of this encounter Procedures Procedure Name Priority Date/Time Associated Diagnosis Comments CBC WITH DIFFERENTIAL Routine 06/18/2022 3:35 AM TACK DRILLER COMPREHENSIVE METABOLIC PANEL Routine 06/18/2022 3:35 AM TACK DRILLER documented in this encounter Results * (ABNORMAL) CBC WITH DIFFERENTIAL (06/18/2022 3:35 AM TACK DRILLER) WBC 8.9 4.8 - 10.8 K/uL 06/18/2022 6:45 AM TACK DRILLER [facility] RBC 4.14(L) 4.60 - 6.20 M/uL 06/18/2022 6:45 AM TACK DRILLER [facility] HEMOGLOBIN 13.2(L) 14.0 - 18.0 g/dL 06/18/2022 6:45 AM [facility] [employer] [facility] HEMATOCRIT 38.5(L) 41.0 - 53.0 % 06/18/2022 6:45 AM [facility] MCV 93.0 84.0 - 103.0 fL 06/18/2022 6:45 AM [facility] MCH 31.9 27.0 - 34.0 pg 06/18/2022 6:45 AM [facility] [employer] [facility] MCHC 34.3 30.0 - 35.0 g/dL 06/18/2022 6:45 AM [facility] [employer] [facility] RDW 12.9 11.0 - 14.5 % 06/18/2022 6:45 AM [facility] [employer] [facility] RDW-STDEV 44.3 37.0 - 54.0 fL 06/18/2022 6:45 AM [facility] [employer] [facility] PLATELETS 237 140 - 440 K/uL 06/18/2022 6:45 AM [facility] [employer] [facility] MPV 11.5 8.9 - 12.8 fL 06/18/2022 6:45 AM [facility] [employer] [facility] NEUTROPHILS 63 42 - 75 % 06/18/2022 6:45 AM [facility] LYMPHOCYTES 25 24 - 44 % 06/18/2022 6:45 AM [facility] [employer] [facility] MONOCYTES 10 2 - 10 % 06/18/2022 6:45 AM [facility] [employer] [facility] EOSINOPHILS 2 0 - 7 % 06/18/2022 6:45 AM [facility] [employer] [facility] BASOPHILS 0 0 - 1 % 06/18/2022 6:45 AM [facility] [employer] [facility] IMMATURE GRANULOCYTES 0 0 - 2 % 06/18/2022 6:45 AM [facility] [employer] [facility] NEUTROPHIL ABSOLUTE 5.57 2.00 - 8.00 K/uL 06/18/2022 6:45 AM [facility] LYMPHOCYTE ABSOLUTE 2.19 1.20 - 4.00 K/uL 06/18/2022 6:45 AM [facility] [employer] [facility] MONOCYTE ABSOLUTE 0.93(H) 0.10 - 0.60 K/uL 06/18/2022 6:45 AM [facility] EOSINOPHIL ABSOLUTE 0.16 0.00 - 0.70 K/uL 06/18/2022 6:45 AM [facility] BASOPHILS ABSOLUTE 0.02 0.00 - 0.20 K/uL 06/18/2022 6:45 AM [facility] IMMATURE GRANULOCYTES ABSOLUTE 0.04 0.00 - 0.10 K/uL 06/18/2022 6:45 AM [facility] Blood Collection / Unknown 06/18/2022 3:35 AM TACK DRILLER 06/18/2022 6:31 AM TACK DRILLER Fabiola Mendez PA-C HEMATOLOGY ORDERABLES Final Re sult [facility] CLIA # [id number] [address] [place] [address] * (ABNORMAL) COMPREHENSIVE METABOLIC PANEL (06/18/2022 3:35 AM TACK DRILLER) SODIUM 140 136 - 145 mmol/L 06/18/2022 6:57 AM [facility] POTASSIUM 4.1 3.5 - 5.1 mmol/L 06/18/2022 6:57 AM [facility] CHLORIDE 107 98 - 107 mmol/L 06/18/2022 6:57 AM [facility] CO2 23 22 - 29 mmol/L 06/18/2022 6:57 AM [facility] CALCIUM 9.9 8.6 - 10.0 mg/dL 06/18/2022 6:57 AM [facility] BUN 13 6 - 20 mg/dL 06/18/2022 6:57 AM [facility] CREATININE 0.74 0.67 - 1.17 mg/dL 06/18/2022 6:57 AM [facility] GLUCOSE 186(H) 74 - 99 mg/dL 06/18/2022 6:57 AM [facility] TOTAL PROTEIN 8.1 6.4 - 8.3 g/dL 06/18/2022 6:57 AM [facility] ALBUMIN 3.9 3.5 - 5.2 g/dL 06/18/2022 6:57 AM [facility] BILIRUBIN TOTAL 0.3 0.2 - 1.0 mg/dL 06/18/2022 6:57 AM [facility] ALKALINE PHOSPHATASE 153(H) 40 - 129 U/L 06/18/2022 6:57 AM [facility] AST 55(H) 10 - 50 U/L 06/18/2022 6:57 AM [facility] ALT 66(H) <=50 U/L 06/18/2022 6:57 AM [facility] GFR >60 >=60 mL/min/1.7 3 sq meter 06/18/2022 6:57 AM [facility] Comment:eGFR calculated with 2020 CKD-EPI equation. Vegetarian diet, extremely high or low muscle mass, and may affect results. Cystatin C with Glomerular Filtration Rate is a suitable alternative for these patients. ANION GAP 10 9 - 20 mmol/L 06/18/2022 6:57 AM [facility] Blood Collection / Unknown 06/18/2022 3:35 AM TACK DRILLER 06/18/2022 6:33 AM TACK DRILLER Fabiola Mendez PA-C CHEMISTRY ORDERABLES Final Res ult [facility] CLIA # [id number] [facility] [address] documented in this encounter Visit Diagnoses Not on filedocumented in this encounter
--- OUTSIDE RECORDS SUMMARY | 2025-04-29 22:16 | XMS_ITS | Encounter Summary ---
Author Organization [facility] Address [address] [place] [address] Care Team Providers Care Document Control Associate Name Role Phone Unavailable Primary Care Provider Unavailabl e Encounter Details Date Type Department Care Team (Late st Contact Info) Description 06/22/2022 Lab Requisition [facility] Laboratory Services [address] [place] [address] Fabiola Mendez PA-C [address] [place] [address] Social History Tobacco Use Types Packs/Day Years Used Date Smoking Tobacco: Never Assessed Sex and Gender Information Value Date Recorded Sex Assigned at Not on file Legal Sex Male 7:03 AM CONTINUOUS IMPROVEMENT LEAD Gender Identity Not on file Sexual Orientation Not on file documented as of this encounter Plan of Treatment Not on file documented as of this encounter Procedures Procedure Name Priority Date/Time Associated Diagnosis Comments CBC WITH DIFFERENTIAL Routine 06/22/2022 3:45 AM CONTINUOUS IMPROVEMENT LEAD COMPREHENSIVE METABOLIC PANEL Routine 06/22/2022 3:45 AM CONTINUOUS IMPROVEMENT LEAD documented in this encounter Results * (ABNORMAL) CBC WITH DIFFERENTIAL (06/22/2022 3:45 AM CONTINUOUS IMPROVEMENT LEAD) WBC 11.7(H) 4.8 - 10.8 K/uL 06/22/2022 6:30 AM CONTINUOUS IMPROVEMENT LEAD [facility] RBC 4.28(L) 4.60 - 6.20 M/uL 06/22/2022 6:30 AM CONTINUOUS IMPROVEMENT LEAD [facility] HEMOGLOBIN 13.2(L) 14.0 - 18.0 g/dL 06/22/2022 6:30 AM [facility] HEMATOCRIT 40.8(L) 41.0 - 53.0 % 06/22/2022 6:30 AM [facility] MCV 95.3 84.0 - 103.0 fL 06/22/2022 6:30 AM [facility] MCH 30.8 27.0 - 34.0 pg 06/22/2022 6:30 AM [facility] MCHC 32.4 30.0 - 35.0 g/dL 06/22/2022 6:30 AM [facility] RDW 12.6 11.0 - 14.5 % 06/22/2022 6:30 AM [facility] RDW-STDEV 44.0 37.0 - 54.0 fL 06/22/2022 6:30 AM [facility] PLATELETS 279 140 - 440 K/uL 06/22/2022 6:30 AM [facility] MPV 11.9 8.9 - 12.8 fL 06/22/2022 6:30 AM [facility] NEUTROPHILS 66 42 - 75 % 06/22/2022 6:30 AM [facility] LYMPHOCYTES 23(L) 24 - 44 % 06/22/2022 6:30 AM [facility] MONOCYTES 10 2 - 10 % 06/22/2022 6:30 AM [facility] EOSINOPHILS 1 0 - 7 % 06/22/2022 6:30 AM [facility] BASOPHILS 0 0 - 1 % 06/22/2022 6:30 AM [facility] IMMATURE GRANULOCYTES 0 0 - 2 % 06/22/2022 6:30 AM [facility] NEUTROPHIL ABSOLUTE 7.67 2.00 - 8.00 K/uL 06/22/2022 6:30 AM [facility] LYMPHOCYTE ABSOLUTE 2.67 1.20 - 4.00 K/uL 06/22/2022 6:30 AM [facility] MONOCYTE ABSOLUTE 1.12(H) 0.10 - 0.60 K/uL 06/22/2022 6:30 AM [facility] EOSINOPHIL ABSOLUTE 0.14 0.00 - 0.70 K/uL 06/22/2022 6:30 AM [facility] BASOPHILS ABSOLUTE 0.04 0.00 - 0.20 K/uL 06/22/2022 6:30 AM [facility] IMMATURE GRANULOCYTES ABSOLUTE 0.04 0.00 - 0.10 K/uL 06/22/2022 6:30 AM [facility] Blood Collection / Unknown 06/22/2022 3:45 AM CONTINUOUS IMPROVEMENT LEAD 06/22/2022 6:21 AM CONTINUOUS IMPROVEMENT LEAD Fabiola Mendez PA-C HEMATOLOGY ORDERABLES Final Re sult [facility] CLIA # [id number] [address] [place] [address] * (ABNORMAL) COMPREHENSIVE METABOLIC PANEL (06/22/2022 3:45 AM CONTINUOUS IMPROVEMENT LEAD) Pathologist [facility] SODIUM 137 136 - 145 mmol/L 06/22/2022 6:50 AM [facility] POTASSIUM 4.1 3.5 - 5.1 mmol/L 06/22/2022 6:50 AM [facility] CHLORIDE 101 98 - 107 mmol/L 06/22/2022 6:50 AM [facility] CO2 25 22 - 29 mmol/L 06/22/2022 6:50 AM [facility] CALCIUM 10.0 8.6 - 10.0 mg/dL 06/22/2022 6:50 AM [facility] BUN 20 6 - 20 mg/dL 06/22/2022 6:50 AM [facility] CREATININE 0.86 0.67 - 1.17 mg/dL 06/22/2022 6:50 AM [facility] GLUCOSE 177(H) 74 - 99 mg/dL 06/22/2022 6:50 AM [facility] TOTAL PROTEIN 8.9(H) 6.4 - 8.3 g/dL 06/22/2022 6:50 AM [facility] ALBUMIN 4.3 3.5 - 5.2 g/dL 06/22/2022 6:50 AM [facility] BILIRUBIN TOTAL 0.3 0.2 - 1.0 mg/dL 06/22/2022 6:50 AM [facility] ALKALINE PHOSPHATASE 158(H) 40 - 129 U/L 06/22/2022 6:50 AM [facility] AST 62(H) 10 - 50 U/L 06/22/2022 6:50 AM [facility] ALT 73(H) <=50 U/L 06/22/2022 6:50 AM [facility] GFR >60 >=60 mL/min/1.7 3 sq meter 06/22/2022 6:50 AM [facility] Comment:eGFR calculated with 2020 CKD-EPI equation. Vegetarian diet, extremely high or low muscle mass, and may affect results. Cystatin C with Glomerular Filtration Rate is a suitable alternative for these patients. ANION GAP 11 9 - 20 mmol/L 06/22/2022 6:50 AM [facility] Blood Collection / Unknown 06/22/2022 3:45 AM CONTINUOUS IMPROVEMENT LEAD 06/22/2022 6:23 AM CONTINUOUS IMPROVEMENT LEAD Fabiola Mendez PA-C CHEMISTRY ORDERABLES Final Res ult [facility] CLIA # [id number] [address] [place] [address] [id number] documented in this encounter Visit Diagnoses Not on filedocumented in this encounter
--- OUTSIDE RECORDS SUMMARY | 2025-04-29 22:16 | XMS_ITS | Encounter Summary ---
Author Organization [facility] Address [address] [place] [address] Care Team Providers Care Senior Scrum Master Name Role Phone Unavailable Primary Care Provider Unavailabl e Encounter Details Date Type Department Care Team (Late st Contact Info) Description 05/28/2022 Lab Requisition [facility] Laboratory Services [address] [place] [address] Daniel Barnes, [address] [place] [address] Social History Tobacco Use Types Packs/Day Years Used Date Smoking Tobacco: Never Assessed Sex and Gender Information Value Date Recorded Sex Assigned at Not on file Legal Sex Male 7:03 AM TECHNICAL DOCUMENT WRITER Gender Identity Not on file Sexual Orientation Not on file documented as of this encounter Plan of Treatment Not on file documented as of this encounter Procedures Procedure Name Priority Date/Time Associated Diagnosis Comments VANCOMYCIN LEVEL TROUGH Routine 05/28/2022 4:00 AM TECHNICAL DOCUMENT WRITER documented in this encounter Results * (ABNORMAL) VANCOMYCIN LEVEL TROUGH (05/28/2022 4:00 AM TECHNICAL DOCUMENT WRITER) VANCOMYCIN, TROUGH 20.4(H) 10.0 - 17.0 ug/mL 05/28/2022 6:33 AM TECHNICAL DOCUMENT WRITER [facility] Blood Collection / Unknown 05/28/2022 4:00 AM TECHNICAL DOCUMENT WRITER 05/28/2022 6:07 AM TECHNICAL DOCUMENT WRITER us Daniel L Gem DO CHEMISTRY ORDERABLES Final R esult [facility] CLIA # [id number] [facility] [address] documented in this encounter Visit Diagnoses Not on filedocumented in this encounter
--- OUTSIDE RECORDS SUMMARY | 2025-04-29 22:16 | XMS_ITS | Encounter Summary ---
Author Organization [facility] Address [address] [place] [address] Care Team Providers Care Diagnostic Technologist Name Role Phone Unavailable Primary Care Provider Unavailabl e Encounter Details Date Type Department Care Team (Late st Contact Info) Description 05/21/[address] [facility] Laboratory Services [address] [place] [address] Rowdy Cook NP [address] [facility] [address] [place] [address] Social History Tobacco Use Types Packs/Day Years Used Date Smoking Tobacco: Never Assessed Sex and Gender Information Value Date Recorded Sex Assigned at Not on file Legal Sex Male 7:03 AM MIXING PLANT DUMPER Gender Identity Not on file Sexual Orientation Not on file documented as of this encounter Plan of Treatment Not on file documented as of this encounter Procedures Procedure Name Priority Date/Time Associated Diagnosis Comments CBC WITH DIFFERENTIAL Routine 05/21/2022 3:00 AM MIXING PLANT DUMPER VANCOMYCIN LEVEL RANDOM Routine 05/21/2022 3:00 AM MIXING PLANT DUMPER COMPREHENSIVE METABOLIC PANEL Routine 05/21/2022 3:00 AM MIXING PLANT DUMPER documented in this encounter Results * VANCOMYCIN LEVEL RANDOM (05/21/2022 3:00 AM MIXING PLANT DUMPER) VANCOMYCIN, RANDOM 6.1 5.0 - 50.0 ug/mL 05/21/2022 7:36 AM MIXING PLANT DUMPER [facility] TDM LAST DATE, TIME, AMT (VANC) Patient unable to state date. time or dose. 05/21/2022 7:36 AM [facility] LAST DOSE AMT, VANCOMYCIN Unknown/Pat ient unsure 05/21/2022 7:36 AM [facility] Blood Collection / Unknown 05/21/2022 3:00 AM MIXING PLANT DUMPER 05/21/2022 7:07 AM [facility] - 05/21/2022 7:36 AM MIXING PLANT DUMPER Vancomycin Therapeutic Ranges: Vancomycin Trough: 10 - 20 mcg/mL Vancomycin Peak: 25 - 50 mcg/mL us Rowdy Cook NP CHEMISTRY ORDERABLES Fin al Result [facility] CLIA # [id number] Critical access hospital[address] [address] * (ABNORMAL) CBC WITH DIFFERENTIAL (05/21/2022 3:00 AM [facility]) [facility] WBC 11.1(H) 4.8 - 10.8 K/uL 05/21/2022 7:17 AM [facility] RBC 3.25(L) 4.60 - 6.20 M/uL 05/21/2022 7:17 AM [facility] HEMOGLOBIN 10.2(L) 14.0 - 18.0 g/dL 05/21/2022 7:17 AM [facility] HEMATOCRIT 31.8(L) 41.0 - 53.0 % 05/21/2022 7:17 AM [facility] MCV 97.8 84.0 - 103.0 fL 05/21/2022 7:17 AM [facility] MCH 31.4 27.0 - 34.0 pg 05/21/2022 7:17 AM [facility] MCHC 32.1 30.0 - 35.0 g/dL 05/21/2022 7:17 AM [facility] RDW 13.9 11.0 - 14.5 % 05/21/2022 7:17 AM [facility] [employer] [facility] RDW-STDEV 49.5 37.0 - 54.0 fL 05/21/2022 7:17 AM [facility] [employer] [facility] PLATELETS 221 140 - 440 K/uL 05/21/2022 7:17 AM [facility] MPV 12.5 8.9 - 12.8 fL 05/21/2022 7:17 AM [facility] NEUTROPHILS 67 42 - 75 % 05/21/2022 7:17 AM [facility] LYMPHOCYTES 21(L) 24 - 44 % 05/21/2022 7:17 AM [facility] MONOCYTES 11(H) 2 - 10 % 05/21/2022 7:17 AM [facility] EOSINOPHILS 1 0 - 7 % 05/21/2022 7:17 AM [facility] [employer] [facility] BASOPHILS 0 0 - 1 % 05/21/2022 7:17 AM [facility] IMMATURE GRANULOCYTES 1 0 - 2 % 05/21/2022 7:17 AM [facility] NEUTROPHIL ABSOLUTE 7.42 2.00 - 8.00 K/uL 05/21/2022 7:17 AM [facility] LYMPHOCYTE ABSOLUTE 2.31 1.20 - 4.00 K/uL 05/21/2022 7:17 AM [facility] MONOCYTE ABSOLUTE 1.24(H) 0.10 - 0.60 K/uL 05/21/2022 7:17 AM [facility] [employer] [facility] EOSINOPHIL ABSOLUTE 0.07 0.00 - 0.70 K/uL 05/21/2022 7:17 AM [facility] [employer] [facility] BASOPHILS ABSOLUTE 0.02 0.00 - 0.20 K/uL 05/21/2022 7:17 AM [facility] IMMATURE GRANULOCYTES ABSOLUTE 0.06 0.00 - 0.10 K/uL 05/21/2022 7:17 AM [facility] Blood Collection / Unknown 05/21/2022 3:00 AM MIXING PLANT DUMPER 05/21/2022 7:07 AM MIXING PLANT DUMPER us Rowdy Cook NP HEMATOLOGY ORDERABLES Fi nal Result [facility] CLALEXY # [id number] [address] [id number] [place] [facility] [place] [address] * (ABNORMAL) COMPREHENSIVE METABOLIC PANEL (05/21/2022 3:00 AM MIXING PLANT DUMPER) SODIUM 141 136 - 145 mmol/L 05/21/2022 7:36 AM [facility] POTASSIUM 3.7 3.5 - 5.1 mmol/L 05/21/2022 7:36 AM [facility] Comment:Slightly hemolyzed. Result may be falsely elevated. CHLORIDE 106 98 - 107 mmol/L 05/21/2022 7:36 AM [facility] CO2 26 22 - 29 mmol/L 05/21/2022 7:36 AM [facility] CALCIUM 8.8 8.6 - 10.0 mg/dL 05/21/2022 7:36 AM [facility] BUN 7 6 - 20 mg/dL 05/21/2022 7:36 AM [facility] CREATININE 0.55(L) 0.67 - 1.17 mg/dL 05/21/2022 7:36 AM [facility] GLUCOSE 94 74 - 99 mg/dL 05/21/2022 7:36 AM [facility] TOTAL PROTEIN 7.4 6.4 - 8.3 g/dL 05/21/2022 7:36 AM [facility] ALBUMIN 2.9(L) 3.5 - 5.2 g/dL 05/21/2022 7:36 AM [facility] BILIRUBIN TOTAL 0.5 0.2 - 1.0 mg/dL 05/21/2022 7:36 AM [facility] ALKALINE PHOSPHATASE 199(H) 40 - 129 U/L 05/21/2022 7:36 AM [facility] AST 74(H) 10 - 50 U/L 05/21/2022 7:36 AM [facility] Comment:Hemolysis present. R esult may be falsely elevated. ALT 46 <=50 U/L 05/21/2022 7:36 AM MIXING PLANT DUMPER [facility] Comment:Hemolysis present. R esult may be falsely elevated. GFR >60 >=60 mL/min/1. 73 sq meter 05/21/2022 7:36 AM [facility] Comment:eGFR calculated with 2020 CKD-EPI equation. Vegetarian diet, extremely high or low muscle mass, and may affect results. Cystatin C with Glomerular Filtration Rate is a suitable alternative for these patients. ANION GAP 9 9 - 20 mmol/L 05/21/2022 7:36 AM MIXING PLANT DUMPER [facility] Blood Collection / Unknown 05/21/2022 3:00 AM MIXING PLANT DUMPER 05/21/2022 7:07 AM MIXING PLANT DUMPER Rowdy Cook NP CHEMISTRY ORDERABLES Fin al Result [id number] [address] [place] [address] documented in this encounter Visit Diagnoses Not on filedocumented in this encounter
--- OUTSIDE RECORDS SUMMARY | 2025-04-29 22:16 | XMS_ITS | Encounter Summary ---
Author Organization [facility] Address [address] [place] [address] Care Team Providers Care Machine Hoop Maker Helper Name Role Phone Unavailable Primary Care Provider Unavailabl e Encounter Details Date Type Department Care Team (Late st Contact Info) Description 06/11/2022 Lab Requisition [facility] Laboratory Services [address] [facility] [place] [address] Lesa Armstrong MD [address] [place] [address] Social History Tobacco Use Types Packs/Day Years Used Date Smoking Tobacco: Never Assessed Sex and Gender Information Value Date Recorded Sex Assigned at Not on file Legal Sex Male 7:03 AM HEATING AND AIR CONDITIONING MECHANIC Gender Identity Not on file Sexual Orientation Not on file documented as of this encounter Plan of Treatment Not on file documented as of this encounter Procedures Procedure Name Priority Date/Time Associated Diagnosis Comments CBC WITH DIFFERENTIAL Stat 06/11/2022 3:53 AM HEATING AND AIR CONDITIONING MECHANIC COMPREHENSIVE METABOLIC PANEL Stat 06/11/2022 3:53 AM HEATING AND AIR CONDITIONING MECHANIC documented in this encounter Results * (ABNORMAL) CBC WITH DIFFERENTIAL (06/11/2022 3:53 AM HEATING AND AIR CONDITIONING MECHANIC) WBC 7.5 4.8 - 10.8 K/uL 06/11/2022 5:56 AM HEATING AND AIR CONDITIONING MECHANIC [facility] RBC 4.00(L) 4.60 - 6.20 M/uL 06/11/2022 5:56 AM HEATING AND AIR CONDITIONING MECHANIC [facility] HEMOGLOBIN 12.8(L) 14.0 - 18.0 g/dL 06/11/2022 5:56 AM [facility] Enject [facility] HEMATOCRIT 37.9(L) 41.0 - 53.0 % 06/11/2022 5:56 AM [facility] Enject [facility] MCV 94.8 84.0 - 103.0 fL 06/11/2022 5:56 AM [facility] MCH 32.0 27.0 - 34.0 pg 06/11/2022 5:56 AM [facility] MCHC 33.8 30.0 - 35.0 g/dL 06/11/2022 5:56 AM [facility] RDW 13.3 11.0 - 14.5 % 06/11/2022 5:56 AM [facility] RDW-STDEV 46.5 37.0 - 54.0 fL 06/11/2022 5:56 AM [facility] PLATELETS 252 140 - 440 K/uL 06/11/2022 5:56 AM [facility] Enject [facility] MPV 11.4 8.9 - 12.8 fL 06/11/2022 5:56 AM [facility] NEUTROPHILS 52 42 - 75 % 06/11/2022 5:56 AM [facility] LYMPHOCYTES 32 24 - 44 % 06/11/2022 5:56 AM [facility] Enject [facility] MONOCYTES 12(H) 2 - 10 % 06/11/2022 5:56 AM [facility] Enject [facility] EOSINOPHILS 3 0 - 7 % 06/11/2022 5:56 AM [facility] Enject [facility] BASOPHILS 0 0 - 1 % 06/11/2022 5:56 AM [facility] Enject [facility] IMMATURE GRANULOCYTES 0 0 - 2 % 06/11/2022 5:56 AM [facility] Enject [facility] NEUTROPHIL ABSOLUTE 3.95 2.00 - 8.00 K/uL 06/11/2022 5:56 AM [facility] LYMPHOCYTE ABSOLUTE 2.39 1.20 - 4.00 K/uL 06/11/2022 5:56 AM [facility] Enject [facility] MONOCYTE ABSOLUTE 0.92(H) 0.10 - 0.60 K/uL 06/11/2022 5:56 AM [facility] EOSINOPHIL ABSOLUTE 0.24 0.00 - 0.70 K/uL 06/11/2022 5:56 AM [facility] BASOPHILS ABSOLUTE 0.02 0.00 - 0.20 K/uL 06/11/2022 5:56 AM [facility] IMMATURE GRANULOCYTES ABSOLUTE 0.02 0.00 - 0.10 K/uL 06/11/2022 5:56 AM [facility] Blood Collection / Unknown 06/11/2022 3:53 AM HEATING AND AIR CONDITIONING MECHANIC 06/11/2022 5:52 AM HEATING AND AIR CONDITIONING MECHANIC us Lsea Armstrong MD HEMATOLOGY ORDERABLES Final Resu lt [facility] CLIA # [id number] [address] [place] [address] * (ABNORMAL) COMPREHENSIVE METABOLIC PANEL (06/11/2022 3:53 AM HEATING AND AIR CONDITIONING MECHANIC) SODIUM 142 136 - 145 mmol/L 06/11/2022 6:22 AM [facility] POTASSIUM 4.1 3.5 - 5.1 mmol/L 06/11/2022 6:22 AM [facility] CHLORIDE 107 98 - 107 mmol/L 06/11/2022 6:22 AM [facility] CO2 23 22 - 29 mmol/L 06/11/2022 6:22 AM [facility] CALCIUM 9.6 8.6 - 10.0 mg/dL 06/11/2022 6:22 AM [facility] BUN 12 6 - 20 mg/dL 06/11/2022 6:22 AM [facility] CREATININE 0.64(L) 0.67 - 1.17 mg/dL 06/11/2022 6:22 AM [facility] GLUCOSE 99 74 - 99 mg/dL 06/11/2022 6:22 AM [facility] TOTAL PROTEIN 8.0 6.4 - 8.3 g/dL 06/11/2022 6:22 AM [facility] ALBUMIN 3.6 3.5 - 5.2 g/dL 06/11/2022 6:22 AM [facility] BILIRUBIN TOTAL 0.3 0.2 - 1.0 mg/dL 06/11/2022 6:22 AM [facility] ALKALINE PHOSPHATASE 169(H) 40 - 129 U/L 06/11/2022 6:22 AM [facility] AST 64(H) 10 - 50 U/L 06/11/2022 6:22 AM [facility] ALT 83(H) <=50 U/L 06/11/2022 6:22 AM [facility] GFR >60 >=60 mL/min/1. 73 sq meter 06/11/2022 6:22 AM [facility] Comment:eGFR calculated with 2020 CKD-EPI equation. Vegetarian diet, extremely high or low muscle mass, and may affect results. Cystatin C with Glomerular Filtration Rate is a suitable alternative for these patients. ANION GAP 12 9 - 20 mmol/L 06/11/2022 6:22 AM [facility] Blood Collection / Unknown 06/11/2022 3:53 AM HEATING AND AIR CONDITIONING MECHANIC 06/11/2022 5:52 AM HEATING AND AIR CONDITIONING MECHANIC us Lesa Armstrong MD CHEMISTRY ORDERABLES Final Resul t [facility] CLIA # [id number] [address] [address] [place] [address] documented in this encounter Visit Diagnoses Not on filedocumented in this encounter
--- OUTSIDE RECORDS SUMMARY | 2025-04-29 22:16 | XMS_ITS | Encounter Summary ---
Author Organization [facility] Address [address] [place] [address] Care Team Providers Care Tire Worker Name Role Phone Unavailable Primary Care Provider Unavailabl e Encounter Details Date Type Department Care Team (Late st Contact Info) Description 06/17/2022 Lab Requisition [facility] Laboratory Services [address] [place] [address] Rowdy Cook NP [address] [place] [address] Social History Tobacco Use Types Packs/Day Years Used Date Smoking Tobacco: Never Assessed Sex and Gender Information Value Date Recorded Sex Assigned at Not on file Legal Sex Male 7:03 AM DIETARY WORKER Gender Identity Not on file Sexual Orientation Not on file documented as of this encounter Plan of Treatment Not on file documented as of this encounter Procedures Procedure Name Priority Date/Time Associated Diagnosis Comments VANCOMYCIN LEVEL TROUGH Routine 06/17/2022 3:10 AM DIETARY WORKER documented in this encounter Results * (ABNORMAL) VANCOMYCIN LEVEL TROUGH (06/17/2022 3:10 AM DIETARY WORKER) VANCOMYCIN, TROUGH 19.8(H) 10.0 - 17.0 ug/mL 06/17/2022 5:53 AM DIETARY WORKER [facility] Blood Collection / Unknown 06/17/2022 3:10 AM DIETARY WORKER 06/17/2022 5:18 AM DIETARY WORKER us Rowdy Cook NP CHEMISTRY ORDERABLES Fin al Result Performing Organization Address City/[facility]/ZIP Co de Phone Number [facility] # [id number] [address] [place] [phone] documented in this encounter Visit Diagnoses Not on filedocumented in this encounter
--- OUTSIDE RECORDS SUMMARY | 2025-04-29 22:16 | XMS_ITS | Encounter Summary ---
Author Organization [facility] Address [address] [place] [address] Care Team Providers Care Traffic Controller Cable Name Role Phone Unavailable Primary Care Provider Unavailabl e Encounter Details Date Type Department Care Team (Late st Contact Info) Description 05/22/2022 Lab Requisition [facility] Laboratory Services [address] [place] [phone] Sunday Salcido MD NO ADDRESS ON FILE Social History Tobacco Use Types Packs/Day Years Used Date Smoking Tobacco: Never Assessed Sex and Gender Information Value Date Recorded Sex Assigned at Not on file Legal Sex Male 7:03 AM SEWING TECHNIQUES DEMONSTRATOR Gender Identity Not on file Sexual Orientation Not on file documented as of this encounter Plan of Treatment Not on file documented as of this encounter Procedures Procedure Name Priority Date/Time Associated Diagnosis Comments VANCOMYCIN LEVEL TROUGH Routine 05/22/2022 9:47 AM SEWING TECHNIQUES DEMONSTRATOR documented in this encounter Results * VANCOMYCIN LEVEL TROUGH (05/22/2022 9:47 AM SEWING TECHNIQUES DEMONSTRATOR) VANCOMYCIN, TROUGH 12.0 10.0 - 17.0 ug/mL 05/22/2022 10:56 AM SEWING TECHNIQUES DEMONSTRATOR [facility] [employer] [facility] Blood Collection / Unknown 05/22/2022 9:47 AM SEWING TECHNIQUES DEMONSTRATOR 05/22/2022 10:38 AM SEWING TECHNIQUES DEMONSTRATOR us Sunday Salcido MD CHEMISTRY ORDERABLES F inal Result [facility] [employer] [facility] CLIA # [id number] [address] [place] [id number] documented in this encounter Visit Diagnoses Not on filedocumented in this encounter
--- OUTSIDE RECORDS SUMMARY | 2025-04-29 22:16 | XMS_ITS | Encounter Summary ---
Author Organization [facility] Address [address] [place] [address] Care Team Providers Care Cooling System Operator Name Role Phone Unavailable Primary Care Provider Unavailabl e Encounter Details Date Type Department Care Team (Late st Contact Info) Description 06/04/2022 Lab Requisition [facility] Laboratory Services [address] [place] [address] [facility] [address] Fabiola Mendez PA-C [address] [place] [address] Social History Tobacco Use Types Packs/Day Years Used Date Smoking Tobacco: Never Assessed Sex and Gender Information Value Date Recorded Sex Assigned at Not on file Legal Sex Male 7:03 AM HEAD MECHANIC Gender Identity Not on file Sexual Orientation Not on file documented as of this encounter Plan of Treatment Not on file documented as of this encounter Procedures Procedure Name Priority Date/Time Associated Diagnosis Comments CBC WITH DIFFERENTIAL Routine 06/04/2022 2:45 AM HEAD MECHANIC COMPREHENSIVE METABOLIC PANEL Routine 06/04/2022 2:45 AM HEAD MECHANIC documented in this encounter Results * (ABNORMAL) CBC WITH DIFFERENTIAL (06/04/2022 2:45 AM HEAD MECHANIC) [facility] WBC 8.3 4.8 - 10.8 K/uL 06/04/2022 6:36 AM HEAD MECHANIC [facility] RBC 4.13(L) 4.60 - 6.20 M/uL 06/04/2022 6:36 AM HEAD MECHANIC [facility] HEMOGLOBIN 12.8(L) 14.0 - 18.0 g/dL 06/04/2022 6:36 AM [facility] HEMATOCRIT 39.5(L) 41.0 - 53.0 % 06/04/2022 6:36 AM [facility] MCV 95.6 84.0 - 103.0 fL 06/04/2022 6:36 AM [facility] MCH 31.0 27.0 - 34.0 pg 06/04/2022 6:36 AM [facility] MCHC 32.4 30.0 - 35.0 g/dL 06/04/2022 6:36 AM [facility] RDW 13.6 11.0 - 14.5 % 06/04/2022 6:36 AM [facility] RDW-STDEV 47.7 37.0 - 54.0 fL 06/04/2022 6:36 AM [facility] PLATELETS 277 140 - 440 K/uL 06/04/2022 6:36 AM [facility] MPV 11.6 8.9 - 12.8 fL 06/04/2022 6:36 AM [facility] NEUTROPHILS 63 42 - 75 % 06/04/2022 6:36 AM [facility] LYMPHOCYTES 25 24 - 44 % 06/04/2022 6:36 AM [facility] MONOCYTES 10 2 - 10 % 06/04/2022 6:36 AM [facility] EOSINOPHILS 2 0 - 7 % 06/04/2022 6:36 AM [facility] BASOPHILS 0 0 - 1 % 06/04/2022 6:36 AM [facility] IMMATURE GRANULOCYTES 0 0 - 2 % 06/04/2022 6:36 AM [facility] NEUTROPHIL ABSOLUTE 5.24 2.00 - 8.00 K/uL 06/04/2022 6:36 AM [facility] LYMPHOCYTE ABSOLUTE 2.05 1.20 - 4.00 K/uL 06/04/2022 6:36 AM [facility] MONOCYTE ABSOLUTE 0.81(H) 0.10 - 0.60 K/uL 06/04/2022 6:36 AM [facility] EOSINOPHIL ABSOLUTE 0.16 0.00 - 0.70 K/uL 06/04/2022 6:36 AM [facility] BASOPHILS ABSOLUTE 0.02 0.00 - 0.20 K/uL 06/04/2022 6:36 AM [facility] IMMATURE GRANULOCYTES ABSOLUTE 0.03 0.00 - 0.10 K/uL 06/04/2022 6:36 AM [facility] Blood Collection / Unknown 06/04/2022 2:45 AM HEAD MECHANIC 06/04/2022 6:32 AM HEAD MECHANIC Fabiola Mendez PA-C HEMATOLOGY ORDERABLES Final Re sult [facility] CLIA # [id number] [address] [place] [address] * (ABNORMAL) COMPREHENSIVE METABOLIC PANEL (06/04/2022 2:45 AM HEAD MECHANIC) SODIUM 139 136 - 145 mmol/L 06/04/2022 6:47 AM [facility] POTASSIUM 4.1 3.5 - 5.1 mmol/L 06/04/2022 6:47 AM [facility] CHLORIDE 106 98 - 107 mmol/L 06/04/2022 6:47 AM [facility] CO2 23 22 - 29 mmol/L 06/04/2022 6:47 AM [facility] CALCIUM 9.6 8.6 - 10.0 mg/dL 06/04/2022 6:47 AM [facility] BUN 14 6 - 20 mg/dL 06/04/2022 6:47 AM [facility] CREATININE 0.59(L) 0.67 - 1.17 mg/dL 06/04/2022 6:47 AM [facility] GLUCOSE 176(H) 74 - 99 mg/dL 06/04/2022 6:47 AM [facility] TOTAL PROTEIN 7.9 6.4 - 8.3 g/dL 06/04/2022 6:47 AM [facility] ALBUMIN 3.6 3.5 - 5.2 g/dL 06/04/2022 6:47 AM [facility] BILIRUBIN TOTAL 0.3 0.2 - 1.0 mg/dL 06/04/2022 6:47 AM [facility] ALKALINE PHOSPHATASE 161(H) 40 - 129 U/L 06/04/2022 6:47 AM [facility] AST 71(H) 10 - 50 U/L 06/04/2022 6:47 AM [facility] ALT 77(H) <=50 U/L 06/04/2022 6:47 AM [facility] GFR >60 >=60 mL/min/1. 73 sq meter 06/04/2022 6:47 AM [facility] Comment:eGFR calculated with 2020 CKD-EPI equation. Vegetarian diet, extremely high or low muscle mass, and may affect results. Cystatin C with Glomerular Filtration Rate is a suitable alternative for these patients. ANION GAP 10 9 - 20 mmol/L 06/04/2022 6:47 AM [facility] Blood Collection / Unknown 06/04/2022 2:45 AM HEAD MECHANIC 06/04/2022 6:32 AM HEAD MECHANIC Fabiola Mendez PA-C CHEMISTRY ORDERABLES Final Res ult [facility] CLIA # [id number] [address] [place] [address] documented in this encounter Visit Diagnoses Not on filedocumented in this encounter
--- OUTSIDE RECORDS SUMMARY | 2025-04-29 22:16 | XMS_ITS | Encounter Summary ---
Author Organization [facility] Address [address] [place] [address] Care Team Providers Care Manager Ed Name Role Phone Unavailable Primary Care Provider Unavailabl e Encounter Details Date Type Department Care Team (Late st Contact Info) Description 06/02/2022 Lab Requisition [facility] Laboratory Services [address] [place] [address] [facility] [place] [address] Fabiola Mendez PA-C [address] [place] [address] Social History Tobacco Use Types Packs/Day Years Used Date Smoking Tobacco: Never Assessed Sex and Gender Information Value Date Recorded Sex Assigned at Not on file Legal Sex Male 7:03 AM SEMICONDUCTOR WAFERS SAW OPERATOR Gender Identity Not on file Sexual Orientation Not on file documented as of this encounter Plan of Treatment Not on file documented as of this encounter Procedures Procedure Name Priority Date/Time Associated Diagnosis Comments CBC WITH DIFFERENTIAL Routine 06/02/2022 3:30 AM SEMICONDUCTOR WAFERS SAW OPERATOR COMPREHENSIVE METABOLIC PANEL Routine 06/02/2022 3:30 AM SEMICONDUCTOR WAFERS SAW OPERATOR documented in this encounter Results * (ABNORMAL) CBC WITH DIFFERENTIAL (06/02/2022 3:30 AM SEMICONDUCTOR WAFERS SAW OPERATOR) [facility] WBC 9.0 4.8 - 10.8 K/uL 06/02/2022 5:46 AM SEMICONDUCTOR WAFERS SAW OPERATOR [facility] RBC 4.00(L) 4.60 - 6.20 M/uL 06/02/2022 5:46 AM SEMICONDUCTOR WAFERS SAW OPERATOR [facility] HEMOGLOBIN 12.2(L) 14.0 - 18.0 g/dL 06/02/2022 5:46 AM [facility] HEMATOCRIT 37.9(L) 41.0 - 53.0 % 06/02/2022 5:46 AM [facility] MCV 94.8 84.0 - 103.0 fL 06/02/2022 5:46 AM [facility] MCH 30.5 27.0 - 34.0 pg 06/02/2022 5:46 AM [facility] MCHC 32.2 30.0 - 35.0 g/dL 06/02/2022 5:46 AM [facility] RDW 13.8 11.0 - 14.5 % 06/02/2022 5:46 AM [facility] RDW-STDEV 47.9 37.0 - 54.0 fL 06/02/2022 5:46 AM [facility] PLATELETS 304 140 - 440 K/uL 06/02/2022 5:46 AM [facility] [employer] [facility] MPV 10.9 8.9 - 12.8 fL 06/02/2022 5:46 AM [facility] NEUTROPHILS 68 42 - 75 % 06/02/2022 5:46 AM [facility] LYMPHOCYTES 20(L) 24 - 44 % 06/02/2022 5:46 AM [facility] MONOCYTES 10 2 - 10 % 06/02/2022 5:46 AM [facility] [employer] [facility] EOSINOPHILS 2 0 - 7 % 06/02/2022 5:46 AM [facility] [employer] [facility] BASOPHILS 0 0 - 1 % 06/02/2022 5:46 AM [facility] [employer] [facility] IMMATURE GRANULOCYTES 0 0 - 2 % 06/02/2022 5:46 AM [facility] [employer] [facility] NEUTROPHIL ABSOLUTE 6.06 2.00 - 8.00 K/uL 06/02/2022 5:46 AM [facility] LYMPHOCYTE ABSOLUTE 1.79 1.20 - 4.00 K/uL 06/02/2022 5:46 AM [facility] [employer] [facility] MONOCYTE ABSOLUTE 0.89(H) 0.10 - 0.60 K/uL 06/02/2022 5:46 AM [facility] EOSINOPHIL ABSOLUTE 0.16 0.00 - 0.70 K/uL 06/02/2022 5:46 AM [facility] BASOPHILS ABSOLUTE 0.02 0.00 - 0.20 K/uL 06/02/2022 5:46 AM [facility] IMMATURE GRANULOCYTES ABSOLUTE 0.04 0.00 - 0.10 K/uL 06/02/2022 5:46 AM [facility] Blood Collection / Unknown 06/02/2022 3:30 AM SEMICONDUCTOR WAFERS SAW OPERATOR 06/02/2022 5:37 AM SEMICONDUCTOR WAFERS SAW OPERATOR Fabiola Mendez PA-C HEMATOLOGY ORDERABLES Final Re sult [facility] CLIA # [id number] [address] [place] [address] * (ABNORMAL) COMPREHENSIVE METABOLIC PANEL (06/02/2022 3:30 AM SEMICONDUCTOR WAFERS SAW OPERATOR) SODIUM 139 136 - 145 mmol/L 06/02/2022 5:55 AM [facility] POTASSIUM 3.9 3.5 - 5.1 mmol/L 06/02/2022 5:55 AM [facility] CHLORIDE 105 98 - 107 mmol/L 06/02/2022 5:55 AM [facility] CO2 24 22 - 29 mmol/L 06/02/2022 5:55 AM [facility] CALCIUM 9.6 8.6 - 10.0 mg/dL 06/02/2022 5:55 AM [facility] BUN 14 6 - 20 mg/dL 06/02/2022 5:55 AM [facility] CREATININE 0.69 0.67 - 1.17 mg/dL 06/02/2022 5:55 AM [facility] GLUCOSE 128(H) 74 - 99 mg/dL 06/02/2022 5:55 AM [facility] TOTAL PROTEIN 8.2 6.4 - 8.3 g/dL 06/02/2022 5:55 AM [facility] ALBUMIN 3.4(L) 3.5 - 5.2 g/dL 06/02/2022 5:55 AM [facility] BILIRUBIN TOTAL 0.3 0.2 - 1.0 mg/dL 06/02/2022 5:55 AM [facility] ALKALINE PHOSPHATASE 173(H) 40 - 129 U/L 06/02/2022 5:55 AM [facility] AST 71(H) 10 - 50 U/L 06/02/2022 5:55 AM [facility] ALT 66(H) <=50 U/L 06/02/2022 5:55 AM [facility] GFR >60 >=60 mL/min/1.7 3 sq meter 06/02/2022 5:55 AM [facility] Comment:eGFR calculated with 2020 CKD-EPI equation. Vegetarian diet, extremely high or low muscle mass, and may affect results. Cystatin C with Glomerular Filtration Rate is a suitable alternative for these patients. ANION GAP 10 9 - 20 mmol/L 06/02/2022 5:55 AM [facility] Blood Collection / Unknown 06/02/2022 3:30 AM SEMICONDUCTOR WAFERS SAW OPERATOR 06/02/2022 5:38 AM SEMICONDUCTOR WAFERS SAW OPERATOR Fabiola Mendez PA-C CHEMISTRY ORDERABLES Final Res ult [facility] CLIA # [id number] [address] [place] [address] documented in this encounter Visit Diagnoses Not on filedocumented in this encounter
--- OUTSIDE RECORDS SUMMARY | 2025-04-29 22:16 | XMS_ITS | Encounter Summary ---
Author Organization [facility] Address [address] [place] [address] Care Team Providers Care Research Pharmacist Name Role Phone Unavailable Primary Care Provider Unavailabl e Encounter Details Date Type Department Care Team (Late st Contact Info) Description 06/15/2022 Lab Requisition [facility] Laboratory Services [address] [place] [address] [facility] [place] [address] Fabiola Mendez PA-C [address] [place] [address] Social History Tobacco Use Types Packs/Day Years Used Date Smoking Tobacco: Never Assessed Sex and Gender Information Value Date Recorded Sex Assigned at Not on file Legal Sex Male 7:03 AM GENERAL LITHOGRAPHIC WORKER Gender Identity Not on file Sexual Orientation Not on file documented as of this encounter Plan of Treatment Not on file documented as of this encounter Procedures Procedure Name Priority Date/Time Associated Diagnosis Comments CBC WITH DIFFERENTIAL Routine 06/15/2022 3:48 AM GENERAL LITHOGRAPHIC WORKER COMPREHENSIVE METABOLIC PANEL Routine 06/15/2022 3:48 AM GENERAL LITHOGRAPHIC WORKER documented in this encounter Results * (ABNORMAL) CBC WITH DIFFERENTIAL (06/15/2022 3:48 AM GENERAL LITHOGRAPHIC WORKER) Pathologist [facility] WBC 8.6 4.8 - 10.8 K/uL 06/15/2022 6:11 AM GENERAL LITHOGRAPHIC WORKER [facility]OR[facility] RBC 3.85(L) 4.60 - 6.20 M/uL 06/15/2022 6:11 AM GENERAL LITHOGRAPHIC WORKER [facility] HEMOGLOBIN 12.3(L) 14.0 - 18.0 g/dL 06/15/2022 6:11 AM [facility] HEMATOCRIT 37.1(L) 41.0 - 53.0 % 06/15/2022 6:11 AM [facility] MCV 96.4 84.0 - 103.0 fL 06/15/2022 6:11 AM [facility] MCH 31.9 27.0 - 34.0 pg 06/15/2022 6:11 AM [facility] MCHC 33.2 30.0 - 35.0 g/dL 06/15/2022 6:11 AM [facility] [employer] [facility] RDW 13.2 11.0 - 14.5 % 06/15/2022 6:11 AM [facility] [employer] [facility] RDW-STDEV 46.5 37.0 - 54.0 fL 06/15/2022 6:11 AM [facility] PLATELETS 237 140 - 440 K/uL 06/15/2022 6:11 AM [facility] [employer] [facility] MPV 11.6 8.9 - 12.8 fL 06/15/2022 6:11 AM [facility] NEUTROPHILS 63 42 - 75 % 06/15/2022 6:11 AM [facility] LYMPHOCYTES 24 24 - 44 % 06/15/2022 6:11 AM [facility] MONOCYTES 10 2 - 10 % 06/15/2022 6:11 AM [facility] [employer] [facility] EOSINOPHILS 2 0 - 7 % 06/15/2022 6:11 AM [facility] BASOPHILS 0 0 - 1 % 06/15/2022 6:11 AM [facility] IMMATURE GRANULOCYTES 0 0 - 2 % 06/15/2022 6:11 AM [facility] NEUTROPHIL ABSOLUTE 5.41 2.00 - 8.00 K/uL 06/15/2022 6:11 AM [facility] LYMPHOCYTE ABSOLUTE 2.09 1.20 - 4.00 K/uL 06/15/2022 6:11 AM [facility] [employer] [facility] MONOCYTE ABSOLUTE 0.90(H) 0.10 - 0.60 K/uL 06/15/2022 6:11 AM [facility] EOSINOPHIL ABSOLUTE 0.18 0.00 - 0.70 K/uL 06/15/2022 6:11 AM [facility] BASOPHILS ABSOLUTE 0.02 0.00 - 0.20 K/uL 06/15/2022 6:11 AM [facility] IMMATURE GRANULOCYTES ABSOLUTE 0.03 0.00 - 0.10 K/uL 06/15/2022 6:11 AM [facility] Blood Collection / Unknown 06/15/2022 3:48 AM GENERAL LITHOGRAPHIC WORKER 06/15/2022 6:01 AM GENERAL LITHOGRAPHIC WORKER Fabiola Mendez PA-C HEMATOLOGY ORDERABLES Final Re sult [facility] CLIA # [id number] [address] [place] [address] * (ABNORMAL) COMPREHENSIVE METABOLIC PANEL (06/15/2022 3:48 AM GENERAL LITHOGRAPHIC WORKER) SODIUM 141 136 - 145 mmol/L 06/15/2022 6:24 AM [facility] POTASSIUM 3.9 3.5 - 5.1 mmol/L 06/15/2022 6:24 AM [facility] CHLORIDE 107 98 - 107 mmol/L 06/15/2022 6:24 AM [facility] CO2 23 22 - 29 mmol/L 06/15/2022 6:24 AM [facility] CALCIUM 9.7 8.6 - 10.0 mg/dL 06/15/2022 6:24 AM [facility] BUN 17 6 - 20 mg/dL 06/15/2022 6:24 AM [facility] CREATININE 0.78 0.67 - 1.17 mg/dL 06/15/2022 6:24 AM [facility] GLUCOSE 123(H) 74 - 99 mg/dL 06/15/2022 6:24 AM [facility] TOTAL PROTEIN 8.0 6.4 - 8.3 g/dL 06/15/2022 6:24 AM [facility] ALBUMIN 3.7 3.5 - 5.2 g/dL 06/15/2022 6:24 AM [facility] BILIRUBIN TOTAL 0.2 0.2 - 1.0 mg/dL 06/15/2022 6:24 AM [facility] ALKALINE PHOSPHATASE 155(H) 40 - 129 U/L 06/15/2022 6:24 AM [facility] AST 59(H) 10 - 50 U/L 06/15/2022 6:24 AM [facility] ALT 70(H) <=50 U/L 06/15/2022 6:24 AM [facility] GFR >60 >=60 mL/min/1.7 3 sq meter 06/15/2022 6:24 AM [facility] Comment:eGFR calculated with 2020 CKD-EPI equation. Vegetarian diet, extremely high or low muscle mass, and may affect results. Cystatin C with Glomerular Filtration Rate is a suitable alternative for these patients. ANION GAP 11 9 - 20 mmol/L 06/15/2022 6:24 AM [facility] Blood Collection / Unknown 06/15/2022 3:48 AM GENERAL LITHOGRAPHIC WORKER 06/15/2022 6:02 AM GENERAL LITHOGRAPHIC WORKER Fabiola Mendez PA-C CHEMISTRY ORDERABLES Final Res ult [facility] CLIA # [id number] [facility] [address] documented in this encounter Visit Diagnoses Not on filedocumented in this encounter
--- OUTSIDE RECORDS SUMMARY | 2025-04-29 22:16 | XMS_ITS | Encounter Summary ---
Author Organization [facility] Address [address] [place] [address] Care Team Providers Care Backup Sawyer Name Role Phone Unavailable Primary Care Provider Unavailabl e Encounter Details Date Type Department Care Team (Late st Contact Info) Description 06/12/2022 Lab Requisition [facility] Laboratory Services [address] [place] [address] Rowdy Cook NP [address] [facility] [address] [place] [address] Social History Tobacco Use Types Packs/Day Years Used Date Smoking Tobacco: Never Assessed Sex and Gender Information Value Date Recorded Sex Assigned at Not on file Legal Sex Male 7:03 AM LARGE ANIMAL 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 TECHNICIAN Gender Identity Not on file Sexual Orientation Not on file documented as of this encounter Plan of Treatment Not on file documented as of this encounter Procedures Procedure Name Priority Date/Time Associated Diagnosis Comments VANCOMYCIN LEVEL TROUGH Routine 06/12/2022 3:29 AM LARGE ANIMAL HUSBANDRY TECHNICIAN documented in this encounter Results * (ABNORMAL) VANCOMYCIN LEVEL TROUGH (06/12/2022 3:29 AM LARGE ANIMAL HUSBANDRY TECHNICIAN) VANCOMYCIN, TROUGH 17.6(H) 10.0 - 17.0 ug/mL 06/12/2022 6:34 AM LARGE ANIMAL HUSBANDRY TECHNICIAN [facility] SERVICES [facility] Blood Collection / Unknown 06/12/2022 3:29 AM LARGE ANIMAL HUSBANDRY TECHNICIAN 06/12/2022 6:14 AM LARGE ANIMAL HUSBANDRY TECHNICIAN us Rowdy Cook NP CHEMISTRY ORDERABLES Fin al Result Performing Organization Address City/[facility]/ZIP Co de Phone Number [facility] SERVICES [facility] # [id number] [address] [place] [address] documented in this encounter Visit Diagnoses Not on filedocumented in this encounter
--- OUTSIDE RECORDS SUMMARY | 2025-04-29 22:16 | XMS_ITS | Clinical Summary ---
Author Organization 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
--- OUTSIDE RECORDS SUMMARY | 2025-04-29 22:16 | XMS_ITS | Encounter Summary ---
Author Organization [facility] Address [address] [place] [address] Care Team Providers Care Diesel Locomotive Crane Operator Name Role Phone Unavailable Primary Care Provider Unavailabl e Encounter Details Date Type Department Care Team (Late st Contact Info) Description 05/28/2022 Lab Requisition [facility] Laboratory Services [address] [place] [address] [place] [address] Fernando Joyner MD [address] [place], [place] [id number] Social History Tobacco Use Types Packs/Day Years Used Date Smoking Tobacco: Never Assessed Sex and Gender Information Value Date Recorded Sex Assigned at Not on file Legal Sex Male 7:03 AM LABORATORY ASSISTANT Gender Identity Not on file Sexual Orientation Not on file documented as of this encounter Plan of Treatment Not on file documented as of this encounter Procedures Procedure Name Priority Date/Time Associated Diagnosis Comments CBC WITH DIFFERENTIAL Routine 05/28/2022 1:01 PM LABORATORY ASSISTANT COMPREHENSIVE METABOLIC PANEL Routine 05/28/2022 1:01 PM LABORATORY ASSISTANT documented in this encounter Results * (ABNORMAL) CBC WITH DIFFERENTIAL (05/28/2022 1:01 PM LABORATORY ASSISTANT) WBC 9.7 4.8 - 10.8 K/uL 05/28/2022 3:00 PM LABORATORY ASSISTANT [facility] LABORATORY [facility] RBC 3.80(L) 4.60 - 6.20 M/uL 05/28/2022 3:00 PM LABORATORY ASSISTANT [facility] LABORATORY [facility] HEMOGLOBIN 11.9(L) 14.0 - 18.0 g/dL 05/28/2022 3:00 PM [facility] HEMATOCRIT 37.8(L) 41.0 - 53.0 % 05/28/2022 3:00 PM [facility] MCV 99.5 84.0 - 103.0 fL 05/28/2022 3:00 PM [facility] MCH 31.3 27.0 - 34.0 pg 05/28/2022 3:00 PM [facility] MCHC 31.5 30.0 - 35.0 g/dL 05/28/2022 3:00 PM [facility] RDW 14.4 11.0 - 14.5 % 05/28/2022 3:00 PM [facility] RDW-STDEV 52.0 37.0 - 54.0 fL 05/28/2022 3:00 PM [facility] PLATELETS 365 140 - 440 K/uL 05/28/2022 3:00 PM [facility] MPV 11.2 8.9 - 12.8 fL 05/28/2022 3:00 PM [facility] NEUTROPHILS 68 42 - 75 % 05/28/2022 3:00 PM [facility] LYMPHOCYTES 21(L) 24 - 44 % 05/28/2022 3:00 PM [facility] MONOCYTES 9 2 - 10 % 05/28/2022 3:00 PM [facility] EOSINOPHILS 2 0 - 7 % 05/28/2022 3:00 PM [facility] BASOPHILS 0 0 - 1 % 05/28/2022 3:00 PM [facility] IMMATURE GRANULOCYTES 1 0 - 2 % 05/28/2022 3:00 PM [facility] NEUTROPHIL ABSOLUTE 6.59 2.00 - 8.00 K/uL 05/28/2022 3:00 PM [facility] LYMPHOCYTE ABSOLUTE 1.98 1.20 - 4.00 K/uL 05/28/2022 3:00 PM LABORATORY ASSISTANT [facility] MONOCYTE ABSOLUTE 0.82(H) 0.10 - 0.60 K/uL 05/28/2022 3:00 PM [facility] EOSINOPHIL ABSOLUTE 0.16 0.00 - 0.70 K/uL 05/28/2022 3:00 PM [facility] BASOPHILS ABSOLUTE 0.04 0.00 - 0.20 K/uL 05/28/2022 3:00 PM [facility] IMMATURE GRANULOCYTES ABSOLUTE 0.06 0.00 - 0.10 K/uL 05/28/2022 3:00 PM [facility] Blood Collection / Unknown 05/28/2022 1:01 PM LABORATORY ASSISTANT 05/28/2022 2:52 PM LABORATORY ASSISTANT Fernando Joyner MD HEMATOLOGY ORDERABLES Final Res ult [facility] CLIA # [id number] [address] [place] [address] * (ABNORMAL) COMPREHENSIVE METABOLIC PANEL (05/28/2022 1:01 PM LABORATORY ASSISTANT) SODIUM 138 136 - 145 mmol/L 05/28/2022 3:11 PM [facility] POTASSIUM 4.7 3.5 - 5.1 mmol/L 05/28/2022 3:11 PM [facility] CHLORIDE 105 98 - 107 mmol/L 05/28/2022 3:11 PM [facility] CO2 24 22 - 29 mmol/L 05/28/2022 3:11 PM [facility] CALCIUM 9.2 8.6 - 10.0 mg/dL 05/28/2022 3:11 PM [facility] BUN 17 6 - 20 mg/dL 05/28/2022 3:11 PM [facility] CREATININE 0.57(L) 0.67 - 1.17 mg/dL 05/28/2022 3:11 PM [facility] GLUCOSE 107(H) 74 - 99 mg/dL 05/28/2022 3:11 PM [facility] TOTAL PROTEIN 7.8 6.4 - 8.3 g/dL 05/28/2022 3:11 PM [facility] ALBUMIN 2.9(L) 3.5 - 5.2 g/dL 05/28/2022 3:11 PM [facility] BILIRUBIN TOTAL 0.3 0.2 - 1.0 mg/dL 05/28/2022 3:11 PM [facility] ALKALINE PHOSPHATASE 201(H) 40 - 129 U/L 05/28/2022 3:11 PM [facility] AST 48 10 - 50 U/L 05/28/2022 3:11 PM [facility] ALT 41 <=50 U/L 05/28/2022 3:11 PM [facility] GFR >60 >=60 mL/min/1. 73 sq meter 05/28/2022 3:11 PM [facility] Comment:eGFR calculated with 2020 CKD-EPI equation. Vegetarian diet, extremely high or low muscle mass, and may affect results. Cystatin C with Glomerular Filtration Rate is a suitable alternative for these patients. ANION GAP 9 9 - 20 mmol/L 05/28/2022 3:11 PM [facility] Blood Collection / Unknown 05/28/2022 1:01 PM LABORATORY ASSISTANT 05/28/2022 3:11 PM LABORATORY ASSISTANT us Fernando Joyner MD CHEMISTRY ORDERABLES Final Resu lt [facility] CLIA # [id number] Critical access hospital[address] [address] documented in this encounter Visit Diagnoses Not on filedocumented in this encounter
--- OUTSIDE RECORDS SUMMARY | 2025-04-29 22:17 | XMS_ITS | Encounter Summary ---
Author Organization [facility] Address 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 Gender Identity Not on file Sexual Orientation Not on file documented as of this encounter Plan of Treatment Not on file documented as of this encounter Procedures Procedure Name Priority Date/Time Associated Diagnosis Comments VANCOMYCIN LEVEL TROUGH Routine 05/24/2022 3:20 AM REGULATORY AFFAIRS 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 documented in this encounter Results * (ABNORMAL) VANCOMYCIN LEVEL TROUGH (05/24/2022 3:20 AM REGULATORY AFFAIRS 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) VANCOMYCIN, TROUGH 18.3(H) 10.0 - 17.0 ug/mL 05/24/2022 6:27 AM REGULATORY AFFAIRS 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 [facility] [employer] [facility] Blood Collection / Unknown 05/24/2022 3:20 AM REGULATORY AFFAIRS 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 05/24/2022 6:08 AM REGULATORY AFFAIRS 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 us Sunday Salcido MD CHEMISTRY ORDERABLES F inal Result [facility] [employer] [facility] CLIA # [id number] Formerly [facility] [address] [place] [address] documented in this encounter Visit Diagnoses Not on filedocumented in this encounter
--- OUTSIDE RECORDS SUMMARY | 2025-04-29 22:17 | XMS_ITS | Encounter Summary ---
Author Organization [facility] Address [address] [place] [address] Care Team Providers Care Pattern Chain Builder Name Role Phone Unavailable Primary Care Provider Unavailabl e Encounter Details Date Type Department Care Team (Late st Contact Info) Description 05/25/2022 Lab Requisition [facility] Laboratory Services [address] [place] [address] Fabiola Mendez PA-C [address] [place] [address] Social History Tobacco Use Types Packs/Day Years Used Date Smoking Tobacco: Never Assessed Sex and Gender Information Value Date Recorded Sex Assigned at Not on file Legal Sex Male 7:03 AM RADIATOR TESTER Gender Identity Not on file Sexual Orientation Not on file documented as of this encounter Plan of Treatment Not on file documented as of this encounter Procedures Procedure Name Priority Date/Time Associated Diagnosis Comments CBC WITH DIFFERENTIAL Routine 05/25/2022 1:20 AM RADIATOR TESTER C-REACTIVE PROTEIN Routine 05/25/2022 1: 20 AM RADIATOR TESTER LIPID PANEL Routine 05/25/2022 1:20 AM RADIATOR TESTER COMPREHENSIVE METABOLIC PANEL Routine 05/25/2022 1:20 AM RADIATOR TESTER documented in this encounter Results * C-REACTIVE PROTEIN (05/25/2022 1:20 AM RADIATOR TESTER) CRP 3.4 0.0 - 5.0 mg/L 05/25/2022 6:11 AM [facility] Blood Collection / Unknown 05/25/2022 1:20 AM RADIATOR TESTER 05/25/2022 5:29 AM RADIATOR TESTER Fabiola Mendez PA-C CHEMISTRY ORDERABLES Final Res ult [facility] CLIA # [id number] [facility] [address] [place] [address] * (ABNORMAL) CBC WITH DIFFERENTIAL (05/25/2022 1:20 AM RADIATOR TESTER) Pathologist [facility] WBC 9.9 4.8 - 10.8 K/uL 05/25/2022 5:43 AM [facility] RBC 3.31(L) 4.60 - 6.20 M/uL 05/25/2022 5:43 AM [facility] HEMOGLOBIN 10.2(L) 14.0 - 18.0 g/dL 05/25/2022 5:43 AM [facility] HEMATOCRIT 32.6(L) 41.0 - 53.0 % 05/25/2022 5:43 AM [facility] MCV 98.5 84.0 - 103.0 fL 05/25/2022 5:43 AM [facility] MCH 30.8 27.0 - 34.0 pg 05/25/2022 5:43 AM [facility] MCHC 31.3 30.0 - 35.0 g/dL 05/25/2022 5:43 AM [facility] RDW 14.3 11.0 - 14.5 % 05/25/2022 5:43 AM [facility] RDW-STDEV 51.2 37.0 - 54.0 fL 05/25/2022 5:43 AM [facility] PLATELETS 386 140 - 440 K/uL 05/25/2022 5:43 AM [facility] MPV 11.2 8.9 - 12.8 fL 05/25/2022 5:43 AM [facility] NEUTROPHILS 67 42 - 75 % 05/25/2022 5:43 AM [facility] LYMPHOCYTES 23(L) 24 - 44 % 05/25/2022 5:43 AM [facility] MONOCYTES 8 2 - 10 % 05/25/2022 5:43 AM [facility] EOSINOPHILS 1 0 - 7 % 05/25/2022 5:43 AM [facility] BASOPHILS 0 0 - 1 % 05/25/2022 5:43 AM [facility] IMMATURE GRANULOCYTES 1 0 - 2 % 05/25/2022 5:43 AM [facility] NEUTROPHIL ABSOLUTE 6.65 2.00 - 8.00 K/uL 05/25/2022 5:43 AM [facility] LYMPHOCYTE ABSOLUTE 2.26 1.20 - 4.00 K/uL 05/25/2022 5:43 AM [facility] MONOCYTE ABSOLUTE 0.75(H) 0.10 - 0.60 K/uL 05/25/2022 5:43 AM [facility] EOSINOPHIL ABSOLUTE 0.13 0.00 - 0.70 K/uL 05/25/2022 5:43 AM [facility] BASOPHILS ABSOLUTE 0.03 0.00 - 0.20 K/uL 05/25/2022 5:43 AM [facility] IMMATURE GRANULOCYTES ABSOLUTE 0.06 0.00 - 0.10 K/uL 05/25/2022 5:43 AM [facility] Blood Collection / Unknown 05/25/2022 1:20 AM RADIATOR TESTER 05/25/2022 5:29 AM RADIATOR TESTER Fabiola Mendez PA-C HEMATOLOGY ORDERABLES Final Re sult [facility] CLIA # [id number] [address] [address] [place] [address] * LIPID PANEL (05/25/2022 1:20 AM [facility]) CHOLESTEROL 163 <200 mg/dL 05/25/2022 6:11 AM [facility] TRIGLYCERIDE 62 <150 mg/dL 05/25/2022 6:11 AM [facility] HDL 57 40 - 59 mg/dL 05/25/2022 6:11 AM [facility] LDL CALCULATED 94 <100 mg/dL 05/25/2022 6:11 AM [facility] NON-HDL CHOLESTEROL 106 <130 mg/dL 05/25/2022 6:11 AM [facility] Blood Collection / Unknown 05/25/2022 1:20 AM [facility] 05/25/2022 5:29 AM [facility] - 05/25/2022 6:11 AM [facility] TOTAL CHOLESTEROL mg/dL Desirable <200 Borderline high 200-239 High >=240 TRIGLYCERIDES mg/dL Normal <150 Borderline high 150-199 High 200-499 Very high >=500 HDL CHOLESTEROL mg/dL Low <40 Normal 40-59 Desirable >=60 NON HDL CHOLESTEROL mg/dL Optimal <130 Near Optimal 130-159 Borderline High 160-189 Very High >=190 CALCULATED LDL mg/dL LDL <70, OPTIMAL if have Atherosclerotic cardiovascular disease (ASCVD) or intermediate or higher (>7.5%) 10 year risk of ASCVD including most adults with diabetes. LDL <100, Optimal in adult patients with low (<7.5%) 10 year ASCVD risk LDL 100-160, Suboptimal LDL >160, High LDL >190, Very high ATPIII Guidelines Reference Ranges for Lipid Panels (NCEP/AMA) . us Fabiola Mendez PA-C CHEMISTRY ORDERABLES Final Res ult [facility] CLIA # [id number] [address] [facility] [place] [address] * (ABNORMAL) COMPREHENSIVE METABOLIC PANEL (05/25/2022 1:20 AM [facility]) Pathologist [facility] SODIUM 139 136 - 145 mmol/L 05/25/2022 6:11 AM [facility] POTASSIUM 3.9 3.5 - 5.1 mmol/L 05/25/2022 6:11 AM [facility] CHLORIDE 107 98 - 107 mmol/L 05/25/2022 6:11 AM [facility] CO2 25 22 - 29 mmol/L 05/25/2022 6:11 AM [facility] CALCIUM 8.8 8.6 - 10.0 mg/dL 05/25/2022 6:11 AM [facility] BUN 13 6 - 20 mg/dL 05/25/2022 6:11 AM [facility] CREATININE 0.73 0.67 - 1.17 mg/dL 05/25/2022 6:11 AM [facility] GLUCOSE 142(H) 74 - 99 mg/dL 05/25/2022 6:11 AM [facility] TOTAL PROTEIN 7.3 6.4 - 8.3 g/dL 05/25/2022 6:11 AM [facility] ALBUMIN 2.8(L) 3.5 - 5.2 g/dL 05/25/2022 6:11 AM [facility] BILIRUBIN TOTAL 0.3 0.2 - 1.0 mg/dL 05/25/2022 6:11 AM [facility] ALKALINE PHOSPHATASE 220(H) 40 - 129 U/L 05/25/2022 6:11 AM [facility] AST 44 10 - 50 U/L 05/25/2022 6:11 AM [facility] ALT 43 <=50 U/L 05/25/2022 6:11 AM [facility] GFR >60 >=60 mL/min/1.7 3 sq meter 05/25/2022 6:11 AM [facility] Comment:eGFR calculated with 2020 CKD-EPI equation. Vegetarian diet, extremely high or low muscle mass, and may affect results. Cystatin C with Glomerular Filtration Rate is a suitable alternative for these patients. ANION GAP 7(L) 9 - 20 mmol/L 05/25/2022 6:11 AM RADIATOR TESTER [facility] Blood Collection / Unknown 05/25/2022 1:20 AM RADIATOR TESTER 05/25/2022 5:29 AM RADIATOR TESTER us Fabiola Mendez PA-C CHEMISTRY ORDERABLES Final Res ult [facility] CLIA # [id number] [facility] [address] documented in this encounter Visit Diagnoses Not on filedocumented in this encounter
--- OUTSIDE RECORDS SUMMARY | 2025-04-29 22:17 | XMS_ITS | Encounter Summary ---
Author Organization [facility] Address [address] [place] [address] Care Team Providers Care Washery Boss Name Role Phone Unavailable Primary Care Provider Unavailabl e Encounter Details Date Type Department Care Team (Late st Contact Info) Description 05/23/2022 Lab Requisition [facility] Laboratory Services [address] [address] Rowdy Cook [facility] [address] [facility] [address] [place] [address] Social History Tobacco Use Types Packs/Day Years Used Date Smoking Tobacco: Never Assessed Sex and Gender Information Value Date Recorded Sex Assigned at Not on file Legal Sex Male 7:03 AM MEDICAL DEVICE ASSEMBLER Gender Identity Not on file Sexual Orientation Not on file documented as of this encounter Plan of Treatment Not on file documented as of this encounter Procedures Procedure Name Priority Date/Time Associated Diagnosis Comments TROPONIN Stat 05/23/2022 2:13 AM MEDICAL DEVICE ASSEMBLER documented in this encounter Results * (ABNORMAL) TROPONIN (05/23/2022 2:13 AM MEDICAL DEVICE ASSEMBLER) TROPONIN T, 5TH GEN 16(H) <=15 ng/L 05/23/2022 3:36 AM MEDICAL DEVICE ASSEMBLER [facility] Blood Collection / Unknown 05/23/2022 2:13 AM MEDICAL DEVICE ASSEMBLER 05/23/2022 3:19 AM MEDICAL DEVICE ASSEMBLER Narrative [facility] [facility] - 05/23/2022 3:36 AM MEDICAL DEVICE ASSEMBLER Troponin elevated. us Rowdy Cook NP CHEMISTRY ORDERABLES Fin al Result Performing Organization Address City/State/[facility] Co de Phone Number [facility] LABORATORY SERVICES [facility] # [id number] [address] [place] [address] documented in this encounter Visit Diagnoses Not on filedocumented in this encounter
--- NOTE | 2025-04-29 22:25 | ECG_ITS ---
[facility] 2025-04[facility]29 Pat Name: Leroy Olivo Department: Room: Gender: Male Data Typist: : 1965 Requested By: Madeleine Catalan Order Number: [id number] Reading MD: BELEN GONZALES Measurements Intervals [place] Rate: 113 P: 65 GA: 157 QRS: 97 QRSD: 93 T: 73 QT: 393 QTc: 541 Interpretive Statements SINUS TACHYCARDIA BORDERLINE RIGHT AXIS DEVIATION [QRS AXIS > 90] NONSPECIFIC T-WAVE ABNORMALITY ABNORMAL RHYTHM ECG Compared to ECG 08/02/2024 01:02:06 T-wave abnormality now present Electronically Signed On 04-29-2025 22:47:52 EVENTS INTERN by BELEN GONZALES [email or web address]
--- NOTE | 2025-04-29 22:48 | XRR_ITS ---
PROCEDURE INFORMATION: Exam: XR Chest Exam date and time: 04/29/2025 11:27 PM Age: 59 years old Clinical indication: Chest pain TECHNIQUE: Imaging protocol: Radiologic exam of the chest. Views: 1 view. COMPARISON: CR XR chest 1V portable [id number] 08/08/2024 12:41 PM FINDINGS: Lungs: Hazy left retrocardiac/basilar opacities. Pleural spaces: No pneumothorax. No pleural effusion. Heart/Mediastinum: Cardiac silhouette is enlarged. Bones/joints: Unremarkable. XR/XR chest 1V portable [id number] IMPRESSION: Hazy left retrocardiac/basilar opacities. Differential includes infection or aspiration.
--- NOTE | 2025-04-29 23:00 | ED_ITS ---
Documented by User: CLEMENTE Perez 04/30/25 02:09 HPI - Chest Pain 2 General: Chief Complaint: Chest Pain Stated Complaint: Progressive Heart Failure Time Seen by Provider: 04/29/25 22:48 Source: patient and family Mode of arrival: ambulatory Limitations: no limitations History of Present Illness: Patient is a 59-year-old male with an extensive past medical history including tobacco use, COPD, congestive heart failure-EF back in August at 25%, coronary artery disease with multiple stents, hepatitis C, hypertension, diabetes, methamphetamine abuse, and significant noncompliance here with a complaint of chest pain and shortness of breath. Most of history comes from the family as patient is somewhat agitated and flopping on the bed back and forth yelling random things. Family states this is apparently normal and stating you are going to want to sedate him so you do not have to continue to deal with him . He is overall a poor historian himself. Family states he does not take any of his medications. MD complaint: chest pain Pertinent past history: coronary artery disease and prior NH Onset (ago): day(s) Timing of current episode: constant Prior episodes: Yes Pain location: substernal Pain radiation: none Severity: moderate Relieving factors: nothing Exacerbating factors: nothing Associated symptoms: Reports no associated symptoms and dyspnea; Deny abdominal pain, fever(s), nausea, palpitations, syncope or vomiting Treatment prior to arrival: none Risk Factors: Coronary artery disease risk factors: diabetes, smoking history, hyperlipidemia and hypertension Thoracic aortic dissection risk factors: none Related Data Home Medications ?Medication ?Instructions ?Recorded ?Confirmed fluticasone propionate 50 2 spray intranasal DAILY PRN 07/28/23 08/02/24 mcg/actuation nasal Allergy Symptoms spray,suspension (Flonase Allergy Relief) Previous Rx's ?Medication ?Instructions ?Recorded blood sugar diagnostic (OneTouch #100 ea 06/25/22 Ultra Test strips) blood-glucose meter (OneTouch #1 ea 06/25/22 Ultra2 Meter kit) lancets (freshbagTouch UltraSoft #100 ea 06/25/22 Lancets) pen needle, diabetic 31 gauge x #100 ea 06/30/22 3/16 (BD Ultra-Fine Mini Pen Needle) albuterol sulfate 90 mcg/actuation 1 inh inhalation QI D PRN shortness 06/07/23 aerosol inhaler of breath or wheezing #6.7 g marielos atorvastatin 40 mg tablet (Lipitor) 40 mg PO BEDTIME # 90 tabs 02/06/24 losartan 100 mg tablet 100 mg PO QAM #90 tabs 02/05 carvedilol 12.5 mg tablet 12.5 mg PO BID #180 tabs 05/26 benzonatate 200 mg capsule 200 mg PO BID PRN cough #30 caps 04/25/24 insulin glargine 100 unit/mL (3 28 unit (0.28 mL) SUBC UT BID 60 04/28/24 mL) subcutaneous pen (Lantus days #33.6 mL Solostar U-100 Insulin) hydralazine 25 mg tablet 25 mg PO TID #270 tabs 05/24 carvedilol 12.5 mg tablet 12.5 mg PO BID #60 tabs 12/25 furosemide 40 mg tablet 40 mg PO DAILY@0800 #30 tabs 08/08/24 sacubitril 24 mg-valsartan 26 mg 1 tab PO BID #60 tabs 08/08/24 tablet (Entresto) bumetanide 1 mg tablet See Rx Instructions .Route 0 09/11/24 .COMPLEX #60 tabs potassium chloride 20 mEq See Rx Instructions .Route 0 09/11/24 tablet,extended release(part/cryst) .COMPLEX #60 tabs clopidogrel 75 mg tablet 75 mg PO QAM #90 tabs budesonide-formoterol HFA 80 2 puff inhalation BID #10 .2 grams 11/14/24 mcg-4.5 mcg/actuation aerosol inhaler (Symbicort) aspirin 81 mg tablet,delayed 81 mg PO QAM #90 tabs 09/24 release Allergies Allergy/AdvReac Type Severity Reaction Status Date / Time No Known Allergies Allergy Verified 07/24/24 11:36 Review of Systems 2 Const: Denies: fever(s), chills, body aches, fatigue or malaise Card: Reports: chest pain and dyspnea on exertion; Denies: palpitations, irregular heart rhythm, edema, swelling of feet/ankles, lightheadedness, syncope or pre-syncope Resp: Reports: dyspnea, productive cough and chest congestion GI: Denies: abdominal pain, nausea, vomiting or diarrhea : Denies: flank pain, dysuria or hematuria Musc: Denies: neck pain, back pain, extremity pain, extremity swelling, joint pain, joint swelling or joint redness Skin/Breast: Denies: rash Neuro: Denies: headache(s), numbness in extremities, weakness in extremities, sensory changes or dizziness PFSH ED 2 PFSH: Medical History Tobacco abuse counseling Tobacco use disorder, moderate, dependence COPD (chronic obstructive pulmonary disease) Heart failure with preserved ejection fraction Chest pain CHF (congestive heart failure) Atherosclerosis of [place] coronary artery without angina pectoris BJORN (iron deficiency anemia) Hepatitis C Congestive heart failure 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 Diabetic peripheral neuropathy associated with type 2 diabetes mellitus HTN (hypertension) Orthopedic hardware present Non-healing wound of left lower extremity Open tibial fracture Smoking Methamphetamine use Diabetes Surgical History History of surgery on lower extremity Family History Other Crohn's disease Diabetes Hyperlipidemia Hypertension Denies family history of CAD (coronary artery disease) Clotting disorder Dementia Psychiatric illness Chronic kidney disease (CKD) Anesthesia complication Bleeding disorder Lung disease Cancer Stroke Social History Smoking and tobacco/nicotine status: current some day tobacco/nicotine user cigarettes [ Other cigarette details: quit 2018. 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 Current gender identity: Male Special costa needs: No Agree to transfusion: Yes Physical Exam 2 Const: COMMON NORMALS: average body habitus, patient oriented x3, alert and well nourished GENERAL APPEARANCE: cooperative OTHER: pt is difficult to control-will not sit still; randomly yelling, mumbles frequently-hard to understand at times; non-cooperative HENMT: COMMON NORMALS: normocephalic and atraumatic HEAD & SCALP: normal to inspection, normocephalic and atraumatic Neck/C-Spine: COMMON NORMALS: no JVD Chest: COMMONS NORMALS: normal inspection of the chest and normal palpation of entire chest wall Resp: COMMON NORMALS: normal respiratory effort AUSCULTATION: crackles and rhonchi Cardio: COMMON NORMALS: no JVD and regular rhythm RATE: tachycardic R HYTHM: regular rhythm GI: COMMON NORMALS: Normal to inspection, nondistended, normoactive bowel sounds present, Soft to palpation, non-tender, No hepatosplenomegaly present and no masses PALPATION: Yes Soft to palpation and Yes No hepatosplenomegaly present : COMMON NORMALS: Yes no CVA tenderness BLADDER/KIDNEY EXAM: Yes no CVA tenderness Back/Pelvis: COMMON NORMALS: no CVA tenderness Extremity: COMMON NORMALS: capillary refill normal, no clubbing, cyanosis or edema, no calf tenderness and no pedal edema GENERAL: Yes normal exam except as noted Neuro: COMMON NORMALS: patient oriented x3, moves all extremities, no focal motor deficits and no sensory deficits noted SENSORIUM/ORIENTATION: Yes alert Skin: COMMON NORMALS: no rashes or lesions noted GENERAL SKIN EXAM: no rashes or lesions noted Course 2 Consultations: Consultation #1: Dr. Adrian-accepts hospitalization Vital Signs: Vital signs: Vital Signs Temperature 102.1 F H 04/30/25 03:32 Pulse Rate 102 H 04/30/25 01:45 Respiratory Rate 24 H 04/30/25 01:18 Blood Pressure 152/86 04/30/25 01:45 Pulse Oximetry 99 04/30/25 03:00 Oxygen Delivery Me thod Room Air 04/30/25 01:18 MDM - Chest Pain Medical Decision Making Patient is a 59-year-old male with an extensive past medical history including tobacco use, COPD, congestive heart failure-EF back in August at 25%, coronary artery disease with multiple stents, hepatitis C, hypertension, diabetes, methamphetamine abuse, and significant noncompliance here with a complaint of chest pain and shortness of breath. Family states he called them today gasping for air stating he couldn't breath prompting them to bring him to the ED. Upon arrival, patient is non-compliant, yelling/flopping all over the bed/won't sit still, acting belligerent. Family apparently states this is normal for him. Patient overall is a poor historian. He is positive for methamphetamine. He was found to be COVID +. He has a left retrocardiac/basilar opacity on his CXR. Cardiac workup was initiated based on comorbidities and complaint of chest pain/SOB. EKGs do not show ischemic change. His baseline trop is 29 with a one hour of 35.85. BNP is 3000 which seems to be close to his baseline. He is not requiring oxygen with his COVID. Had discussed possibility of sending him home on anti-virals but wanted to attempt ambulation first and see if he could hold sats. In the meantime, patient had reportedly tried to get out of bed and was so weak he fell onto the floor and was not able to get up. He reportedly lives alone. It took multiple staff just to get him up out of the floor and changed. I do not believe there is any way to reasonably send this patient home safely. I have spoken to Dr. Adrian for admission. Plan on obtaining CT scan due to the fall-unknown whether he struck his head or not. Attempted CT x 1 but patient was flailing all over the bed so we will need to have medications given and re- attempt. Medical Records I reviewed the patient's medical records. Lab Data I reviewed the patient's lab results. 04/29/25 23:20 04/29/25 23:20 Radiology Impressions Chest X-Ray 04/29/25 22:48 IMPRESSION: Hazy left retrocardiac/basilar opacities. Differential includes infection or aspiration. Head CT 04/30/25 01:37 IMPRESSION: 1. No acute intracranial CT findings. 2. Sinusitis. Laboratory Results WBC 9.87 10^3/uL (3.29-11.43) 04/29/25 23:20 RBC 3.96 10^6/uL (3.85-5.65) 04/29/25 23:20 Hgb 12.40 g/dL (11.27-16.99) 04/29/25 23:20 Hct 38.6 % (37-53) 04/29/25 23:20 MCV 97.5 fl (82-101) 04/29/25 23:20 MCH 31.3 pg (27-33) 04/29/25 23:20 MCHC 32.1 g/dL (30-55) 04/29/25 23:20 RDW 13.4 % (12.1-15.1) 04/29/25 23:20 Plt Count 166 10^3/cmm (157-399) 04/29/25 23:20 MPV 11.7 fL (7.4-10.4) H 04/29/25 23:20 Neut % (Auto) 89.1 % 04/29/25 23:20 Lymph % (Auto) 5.3 % 04/29/25 23:20 [place] % (Auto) 5.0 % 04/29/25 23:20 Eos % (Auto) 0.2 % 04/29/25 23:20 Baso % (Auto) 0.2 % 04/29/25 23:20 Neut # (Auto) 8.80 10^3/uL (1.8-7.7) H 04/29/25 23:20 Lymph # (Auto) 0.5 10^3/uL (0.8-4.8) L 04/29/25 23:20 [place] # (Auto) 0.5 10^3/uL (0.2-0.9) 04/29/25 23:20 Eos # (Auto) 0.0 10^3/uL (0.0-0.8) 04/29/25 23:20 Baso # (Auto) 0.0 10^3/uL (0.0-0.1) 04/29/25 23:20 Nucleated RBC % (auto) 0 % 04/29/25 23:20 Nucleated RBCs # 0.0 /100WBC 04/29/25 23:20 Sodium 138 mmol/L (136-145) 04/29/25 23:20 Potassium 4.4 mmol/L (3.5-5.1) 04/29/25 23:20 Chloride 103 mmol/L (98-107) 04/29/25 23:20 Carbon Dioxide 25 mmol/L (22-29) 04/29/25 23:20 Anion Gap 14.4 (5-19) 04/29/25 23:20 BUN 14 mg/dL (8-23) 04/29/25 23:20 Creatinine 1.1 mg/dL (0.7-1.2) 04/29/25 23:20 GFR Calculation 82.3 mL/min (90-130) L 04/29/25 23:20 Glucose 114 mg/dL (65-115) 04/29/25 23:20 Calculated Osmolality 287 mOsm/kg (285-295) 04/29/25 23:20 Calcium 8.8 mg/dL (8.5-10.5) 04/29/25 23:20 Total Bilirubin 0.6 mg/dL (0.15-1.2) 04/29/25 23:20 AST 37 U/L (0-40) 04/29/25 23:20 ALT 30 U/L (0-41) 04/29/25 23:20 Alkaline Phosphatase 103 U/L (40-130) 04/29/25 23:20 Troponin T Baseline 29 ng/L (0-15) H 04/29/25 23:20 Troponin T 60 Minute 35.85 ng/L (0-15) H 04/30/25 00:55 Delta Troponin T 6.85 ABS# (0-10) 04/30/25 00:55 NT-Pro-B Natriuret Pep 3000 pg/mL (0-125) H 04/29/25 23:20 Total Protein 6.7 g/dL (6.6-8.7) 04/29/25 23:20 Albumin 3.9 g/dL (3.5-5.2) 04/29/25 23:20 Globulin 2.8 g/dL (1.3-4.6) 04/29/25 23:20 Urine Opiates Screen Negative ng/mL (Negative) 04/30/25 00:50 Ur Barbiturates Screen Negative ng/mL (Negative) 04/30/25 00:50 Ur Phencyclidine Scrn Negative ng/mL (Negative) 04/30/25 00:50 Ur Amphetamines Screen Positive ng/mL (Negative) H 04/30/25 00:50 U Benzodiazepines Scrn Negative ng/mL (Negative) 04/30/25 00:50 Urine Cocaine Screen Negative ng/mL (Negative) 04/30/25 00:50 U Marijuana (THC) Screen Positive ng/mL (Negative) H 04/30/25 00:50 Influenza A (PCR) Negative (Negative) 04/30/25 00:02 Influenza Type B (PCR) Negative (Negative) 04/30/25 00:02 RSV (PCR) Negative (Negative) 04/30/25 00:02 SARS-CoV-2 (PCR) Positive (Negative) A 04/30/25 00:02 All radiology interpretation(s) finalized by discharge Discharge Plan Discharge Patient Disposition: Admitted As Inpatient Clinical Impression: Methamphetamine use, CHF (congestive heart failure), CAD (coronary artery disease), COVID-19, Weakness, Fall, Closed head injury Condition: Stable Coding Level of Care Code ED Medical Technologist Chemistry for Chg Fwd Heart Score HEART Score Components History: Moderately Suspicious EKG: Non-specific Changes Age: 45-64 yrs Risk Factors: >/=3 Risk Factors Troponin: Baseline Trop 16-45 ng/L HEART Score RESULT HEART Score: 6 Documented by User: Madeleine Catalan MD 04/30/25 04:08 HPI - Chest Pain 2 General: Chief Complaint: Chest Pain Stated Complaint: Progressive Heart Failure Time Seen by Provider: 04/29/25 22:48 Related Data Home Medications ?Medication ?Instructions ?Recorded ?Confirmed fluticasone propionate 50 2 spray intranasal DAILY PRN 07/28/23 08/02/24 mcg/actuation nasal Allergy Symptoms spray,suspension (Flonase Allergy Relief) Previous Rx's ?Medication ?Instructions ?Recorded blood sugar diagnostic (OneTouch #100 ea 06/25/22 Ultra Test strips) blood-glucose meter (OneTouch #1 ea 06/25/22 Ultra2 Meter kit) lancets (OneTouch UltraSoft #100 ea 06/25/22 Lancets) pen needle, diabetic 31 gauge x #100 ea 06/30/22/ (BD Ultra-Fine Mini Pen Needle) albuterol sulfate 90 mcg/actuation 1 inh inhalation QI D PRN shortness 06/07/23 aerosol inhaler of breath or wheezing #6.7 g marielos atorvastatin 40 mg tablet (Lipitor) 40 mg PO BEDTIME # 90 tabs 02/06/24 losartan 100 mg tablet 100 mg PO QAM #90 tabs 02/05 carvedilol 12.5 mg tablet 12.5 mg PO BID #180 tabs 05/26 benzonatate 200 mg capsule 200 mg PO BID PRN cough #30 caps 04/25/24 insulin glargine 100 unit/mL (3 28 unit (0.28 mL) SUBC UT BID 60 04/28/24 mL) subcutaneous pen (Lantus days #33.6 mL Solostar U-100 Insulin) hydralazine 25 mg tablet 25 mg PO TID #270 tabs 05/24 carvedilol 12.5 mg tablet 12.5 mg PO BID #60 tabs 0412/25 furosemide 40 mg tablet 40 mg PO DAILY@0800 #30 tabs 08/08/24 sacubitril 24 mg-valsartan 26 mg 1 tab PO BID #60 tabs 08/08/24 tablet (Entresto) bumetanide 1 mg tablet See Rx Instructions .Route 0 09/11/24 .COMPLEX #60 tabs potassium chloride 20 mEq See Rx Instructions .Route 0 09/11/24 tablet,extended release(part/cryst) .COMPLEX #60 tabs clopidogrel 75 mg tablet 75 mg PO QAM #90 tabs budesonide-formoterol HFA 80 2 puff inhalation BID #10 .2 grams 11/14/24 mcg-4.5 mcg/actuation aerosol inhaler (Symbicort) aspirin 81 mg tablet,delayed 81 mg PO QAM #90 tabs 09/24 release Allergies Allergy/AdvReac Type Severity Reaction Status Date / Time No Known Allergies Allergy Verified 07/24/24 11:36 [facility] ED 2 PFS: Medical History Tobacco abuse counseling Tobacco use disorder, moderate, dependence COPD (chronic obstructive pulmonary disease) Heart failure with preserved ejection fraction Chest pain CHF (congestive heart failure) Atherosclerosis of [place] coronary artery without angina pectoris BJORN (iron deficiency anemia) Hepatitis C Congestive heart failure 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 Diabetic peripheral neuropathy associated with type 2 diabetes mellitus HTN (hypertension) Orthopedic hardware present Non-healing wound of left lower extremity Open tibial fracture Smoking Methamphetamine use Diabetes Surgical History History of surgery on lower extremity Family History Other Crohn's disease Diabetes Hyperlipidemia Hypertension Denies family history of CAD (coronary artery disease) Clotting disorder Dementia Psychiatric illness Chronic kidney disease (CKD) Anesthesia complication Bleeding disorder Lung disease Cancer Stroke Social History Smoking and tobacco/nicotine status: current some day tobacco/nicotine user cigarettes [ Other cigarette details: quit 2018. 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 Current gender identity: Male Special costa needs: No Agree to transfusion: Yes Course 2 Vital Signs: Vital signs: Vital Signs Temperature 102.1 F H 04/30/25 03:32 Pulse Rate 102 H 04/30/25 01:45 Respiratory Rate 24 H 04/30/25 01:18 Blood Pressure 152/86 04/30/25 01:45 Pulse Oximetry 99 04/30/25 03:00 Oxygen Delivery Me thod Room Air 04/30/25 01:18 MDM - Chest Pain Medical Decision Making Patient is a 59-year-old male with an extensive past medical history including tobacco use, COPD, congestive heart failure-EF back in August at 25%, coronary artery disease with multiple stents, hepatitis C, hypertension, diabetes, methamphetamine abuse, and significant noncompliance here with a complaint of chest pain and shortness of breath. Family states he called them today gasping for air stating he couldn't breath prompting them to bring him to the ED. Upon arrival, patient is non-compliant, yelling/flopping all over the bed/won't sit still, acting belligerent. Family apparently states this is normal for him. Patient overall is a poor historian. He is positive for methamphetamine. He was found to be COVID +. He has a left retrocardiac/basilar opacity on his CXR. Cardiac workup was initiated based on comorbidities and complaint of chest pain/SOB. EKGs do not show ischemic change. His baseline trop is 29 with a one hour of 35.85. BNP is 3000 which seems to be close to his baseline. He is not requiring oxygen with his COVID. Had discussed possibility of sending him home on anti-virals but wanted to attempt ambulation first and see if he could hold sats. In the meantime, patient had reportedly tried to get out of bed and was so weak he fell onto the floor and was not able to get up. He reportedly lives alone. It took multiple staff just to get him up out of the floor and changed. I do not believe there is any way to reasonably send this patient home safely. I have spoken to Dr. Adrian for admission. Plan on obtaining CT scan due to the fall-unknown whether he struck his head or not. Attempted CT x 1 but patient was flailing all over the bed so we will need to have medications given and re- attempt. ATTENDING PHYSICIAN ATTESTATION: I, Madeleine Catalan MD, have discussed this patient with Sophie CORNEJO, reviewed labwork, imaging, and agree with the plan of care as hereby documented by VERÓNICA. Lab Data 04/29/25 23:20 04/29/25 23:20 Radiology Impressions Chest X-Ray 04/29/25 22:48 IMPRESSION: Hazy left retrocardiac/basilar opacities. Differential includes infection or aspiration. Head CT 04/30/25 01:37 IMPRESSION: 1. No acute intracranial CT findings. 2. Sinusitis. Laboratory Results WBC 9.87 10^3/uL (3.29-11.43) 04/29/25 23:20 RBC 3.96 10^6/uL (3.85-5.65) 04/29/25 23:20 Hgb 12.40 g/dL (11.27-16.99) 04/29/25 23:20 Hct 38.6 % (37-53) 04/29/25 23:20 MCV 97.5 fl (82-101) 04/29/25 23:20 MCH 31.3 pg (27-33) 04/29/25 23:20 MCHC 32.1 g/dL (30-55) 04/29/25 23:20 RDW 13.4 % (12.1-15.1) 04/29/25 23:20 Plt Count 166 10^3/cmm (157-399) 04/29/25 23:20 MPV 11.7 fL (7.4-10.4) H 04/29/25 23:20 Neut % (Auto) 89.1 % 04/29/25 23:20 Lymph % (Auto) 5.3 % 04/29/25 23:20 [place] % (Auto) 5.0 % 04/29/25 23:20 Eos % (Auto) 0.2 % 04/29/25 23:20 Baso % (Auto) 0.2 % 04/29/25 23:20 Neut # (Auto) 8.80 10^3/uL (1.8-7.7) H 04/29/25 23:20 Lymph # (Auto) 0.5 10^3/uL (0.8-4.8) L 04/29/25 23:20 [place] # (Auto) 0.5 10^3/uL (0.2-0.9) 04/29/25 23:20 Eos # (Auto) 0.0 10^3/uL (0.0-0.8) 04/29/25 23:20 Baso # (Auto) 0.0 10^3/uL (0.0-0.1) 04/29/25 23:20 Nucleated RBC % (auto) 0 % 04/29/25 23:20 Nucleated RBCs # 0.0 /100WBC 04/29/25 23:20 Sodium 138 mmol/L (136-145) 04/29/25 23:20 Potassium 4.4 mmol/L (3.5-5.1) 04/29/25 23:20 Chloride 103 mmol/L (98-107) 04/29/25 23:20 Carbon Dioxide 25 mmol/L (22-29) 04/29/25 23:20 Anion Gap 14.4 (5-19) 04/29/25 23:20 BUN 14 mg/dL (8-23) 04/29/25 23:20 Creatinine 1.1 mg/dL (0.7-1.2) 04/29/25 23:20 GFR Calculation 82.3 mL/min (90-130) L 04/29/25 23:20 Glucose 114 mg/dL (65-115) 04/29/25 23:20 Calculated Osmolality 287 mOsm/kg (285-295) 04/29/25 23:20 Calcium 8.8 mg/dL (8.5-10.5) 04/29/25 23:20 Total Bilirubin 0.6 mg/dL (0.15-1.2) 04/29/25 23:20 AST 37 U/L (0-40) 04/29/25 23:20 ALT 30 U/L (0-41) 04/29/25 23:20 Alkaline Phosphatase 103 U/L (40-130) 04/29/25 23:20 Troponin T Baseline 29 ng/L (0-15) H 04/29/25 23:20 Troponin T 60 Minute 35.85 ng/L (0-15) H 04/30/25 00:55 Delta Troponin T 6.85 ABS# (0-10) 04/30/25 00:55 NT-Pro-B Natriuret Pep 3000 pg/mL (0-125) H 04/29/25 23:20 Total Protein 6.7 g/dL (6.6-8.7) 04/29/25 23:20 Albumin 3.9 g/dL (3.5-5.2) 04/29/25 23:20 Globulin 2.8 g/dL (1.3-4.6) 04/29/25 23:20 Urine Opiates Screen Negative ng/mL (Negative) 04/30/25 00:50 Ur Barbiturates Screen Negative ng/mL (Negative) 04/30/25 00:50 Ur Phencyclidine Scrn Negative ng/mL (Negative) 04/30/25 00:50 Ur Amphetamines Screen Positive ng/mL (Negative) H 04/30/25 00:50 U Benzodiazepines Scrn Negative ng/mL (Negative) 04/30/25 00:50 Urine Cocaine Screen Negative ng/mL (Negative) 04/30/25 00:50 U Marijuana (THC) Screen Positive ng/mL (Negative) H 04/30/25 00:50 Influenza A (PCR) Negative (Negative) 04/30/25 00:02 Influenza Type B (PCR) Negative (Negative) 04/30/25 00:02 RSV (PCR) Negative (Negative) 04/30/25 00:02 SARS-CoV-2 (PCR) Positive (Negative) A 04/30/25 00:02 Discharge Plan Discharge Patient Disposition: Admitted As Inpatient Clinical Impression: Methamphetamine use, CHF (congestive heart failure), CAD (coronary artery disease), COVID-19, Weakness, Fall, Closed head injury Condition: Stable Coding Level of Care Code ED Medical Technologist Chemistry for Chg Fwd Heart Score HEART Score RESULT HEART Score: 6
[2025-04-29 23:29] LABS: Hematocrit 38.6 % (37-53); Hemoglobin 12.40 g/dL (11.27-16.99); Mean Corpuscular HGB Conc 32.1 g/dL (30-55); Mean Corpuscular Hemoglobin 31.3 pg (27-33); Mean Corpuscular Volume 97.5 fl (82-101); Nucleated Red Blood Cells % 0 %; Platelet Count 166 10^3/cmm (157-399); Red Blood Count 3.96 10^6/uL (3.85-5.65); White Blood Count 9.87 10^3/uL (3.29-11.43)
[2025-04-29 23:35] VITALS: BP 176/118; PULSE 114
[2025-04-29 23:45] VITALS: BP 176/118; PULSE 114
[2025-04-29 23:46] LABS: Troponin(5th) Baseline 29 ng/L (0-15)
[2025-04-29 23:48] LABS: Alanine Aminotransferase 30 U/L (0-41); Albumin Level 3.9 g/dL (3.5-5.2); Alkaline Phosphatase 103 U/L (40-130); Anion Gap 14.4 (5-19); Aspartate Amino Transferase 37 U/L (0-40); Blood Urea Nitrogen 14 mg/dL (8-23); Calcium 8.8 mg/dL (8.5-10.5); Carbon Dioxide 25 mmol/L (22-29); Chloride 103 mmol/L (98-107); Globulin 2.8 g/dL (1.3-4.6); Glucose 114 mg/dL (65-115); Osmolality Calculated 287 mOsm/kg (285-295); Potassium 4.4 mmol/L (3.5-5.1); Sodium 138 mmol/L (136-145); Total Protein 6.7 g/dL (6.6-8.7)
[2025-04-29 23:58] LABS: NT Pro B Type Natriuretic Pept 3000 pg/mL (0-125)
--- NOTE | 2025-04-29 23:58 | ECG_ITS ---
[facility] Test Date: 2025-04-29 Pat Name: Leroy Olivo Department: Room: Gender: Male Sash Repairer: : 1965 Requested By: Sophie Beard Order Number: [id number] Joseph MD: BELEN GONZALES Measurements Intervals [place] Rate: 106 P: 61 OK: 152 QRS: 80 QRSD: 90 T: 54 QT: 369 QTc: 492 Interpretive Statements SINUS TACHYCARDIA NONSPECIFIC T-WAVE ABNORMALITY ABNORMAL RHYTHM ECG Compared to ECG 04/29/2025 22:15:16 No significant changes Electronically Signed On 05-03-2025 18:55:30 [employer]ICS TEACHER by BELEN GONZALES [email or web address]
[2025-04-30] VITALS (28 sets, daily range): BP systolic 131–167; BP diastolic 80–103; PULSE 67–112; RESP 12–29; TEMP 36.7–38.9; O2SAT 90–99
[2025-04-30] MEDS: labetalol 5 mg/mL SDV 20mL 20 MG IVP (00:22)
[2025-04-30] MEDS: FUROsemide 10 mg/mL SDV 10mL 60 MG IVP (00:22)
[2025-04-30] MEDS: LORazepam 2 mg/mL INJ 1 mL 1 MG IVP ×2 (00:22→02:09)
--- NOTE | 2025-04-30 00:22 | PC.NURSE ---
Walked into pt's room and pt's S/O was feeding pt bites of pizza. Pt's S/O stated you need to eat this now before she tells us you can't have any food to eat, get to chewing .
[2025-04-30 00:45] LABS: Respiratory Syncytial Virus Ce NEGATIVE (Negative)
[2025-04-30 00:51] LABS: SARS-CoV-2 PCR Positive (Negative)
[2025-04-30 01:08] LABS: PCP Screen Urine Negative (Negative)
--- NOTE | 2025-04-30 01:37 | CTR_ITS ---
PROCEDURE INFORMATION: Exam: CT Head Without Contrast Exam date and time: 04/30/2025 2:30 AM Age: 59 years old Clinical indication: Injury or trauma; Blunt trauma (contusions or hematomas); Unwitnessed fall out of bed in er room. TECHNIQUE: Imaging protocol: Computed tomography of the head without contrast. Radiation optimization: All CT scans at this facility use at least one of these dose optimization techniques: automated exposure control; mA and/or kV adjustment per patient size (includes targeted exams where dose is matched to clinical indication); or iterative reconstruction. COMPARISON: No relevant prior studies available. RADIATION DOSE METRICS: Total DLP (mGy-cm): 998.18 FINDINGS: Brain: Normal. No hemorrhage. Unremarkable white matter. No mass effect. Cerebral ventricles: No ventriculomegaly. Paranasal sinuses: There is paranasal sinus mucosal thickening. Mastoid air cells: Visualized mastoid air cells are well aerated. Bones: Unremarkable. No acute fracture. Soft tissues: Unremarkable. CT/CT head wo con* [id number] IMPRESSION: 1. No acute intracranial CT findings. 2. Sinusitis.
--- NOTE | 2025-04-30 01:37 | PC.NURSE ---
Pt's family stated that they were going outside for some air. Approximately 5 minutes later pt apparently crawled off the end of the bed and attempted to walk to the door of the room and fell into the door. Staff heard the pt hit the door and ran to the room. Pt was on the floor, we do not believe that the pt hit his head. Pt states that his leg hurts. Staff notified provider immediately. Pt was lifted up out of the floor by 4 staff members and helped into a wheelchair. The pt had urinated on himself, so we changed him out of his clothes and put him in a gown then placed the pt back into the bed. Pt's family was notified and came back in the building to sit in the room with the pt and watch him to make sure he would not get out of bed again.
--- NOTE | 2025-04-30 01:42 | PC.NURSE ---
Family stepped out of the room to inform me that if anything were to happen, that the pt is a DNR.
[2025-04-30] MEDS: water for injection-sterile 10 ML 2.1 ML (03:35)
[2025-04-30] MEDS: acetaminophen 1,000 MG/100 ML PIGGYBACK 400 MG IV (04:28)
--- NOTE | 2025-04-30 04:44 | PM.HP ---
Providers/Chief Complaint Primary Care Provider: Dallas Kwan MD Chief Complaint: Progressive Heart Failure History of Present Illness Leroy Olivo is a 59 year old male with history significant for COPD, HFrEF, CAD with stents, and methamphetamine abuse as well as medical nonadherence, who presents with complaints of shortness of breath. Due to the patient's clinical condition, history is gathered from family present at the bedside. I am told that the patient has been ill for the past 1.5 weeks with complaints of shortness of breath, chest pain, and cough. He has been reluctant to seek medical attention for his complaints. Since his onset of complaints, he has been taking [id number]-[id number] medications and home remedies without improvement of his condition. Family does mention that the patient will occasionally take his prescribed occasions and is inconsistent. Today, he is homeless continued and he decided to request family bring him to the hospital for further evaluation and management. Of note, the patient does live alone. His current behavior can be seen when he is acutely ill per the family. His current condition is that of confusion and agitation. It should also be noted the patient had an unwitnessed fall in the ED. There was discussion on discharging the patient home for after his unsteadiness with walking, fall, there is concern that he would be unable to care for himself at home and thus hospitalist is requested to admit the patient. Medications/Allergies Home Medications ?Medication ?Instructions ?Recorded ?Confirmed ?Last Taken ?Type blood sugar diagnostic (OneTouch #100 ea 06/25/22 08/02/24 09/29/22 21:00 Rx Ultra Test strips) blood-glucose meter (OneTouch #1 ea 06/25/22 08/02/24 09/29/22 21:00 Rx Ultra2 Meter kit) lancets (OneTouch UltraSoft #100 ea 06/25/22 08/02/24 09/29/22 21:00 Rx Lancets) pen needle, diabetic 31 gauge x #100 ea 06/30/22 08/02/24 09/29/22 21:00 Rx 3/16 (BD Ultra-Fine Mini Pen Needle) albuterol sulfate 90 mcg/actuation 1 inh inhalation QID PRN shortness 06/07/23 08/02/24 Unknown Rx aerosol inhaler of breath or wheezing #6.7 grams fluticasone propionate 50 2 spray intranasal DAILY PRN 07/28/23 08/02/24 Unknown History mcg/actuation nasal Allergy Symptoms spray,suspension (Flonase Allergy Relief) atorvastatin 40 mg tablet (Lipitor) 40 mg PO BEDTIME #90 tabs 02/06/24 08/02/24 07/31/24 Rx losartan 100 mg tablet 100 mg PO QAM #90 tabs 02/06/24 08/02/24 08/01/24 Rx carvedilol 12.5 mg tablet 12.5 mg PO BID #180 tabs 03/03/24 08/02/24 08/01/24 Rx benzonatate 200 mg capsule 200 mg PO BID PRN cough #30 caps 04/25/24 08/02/24 Unknown Rx insulin glargine 100 unit/mL (3 28 unit (0.28 mL) SUBCUT BID 60 04/28/24 08/02/24 08/01/24 Rx mL) subcutaneous pen (Lantus days #33.6 mL Solostar U-100 Insulin) hydralazine 25 mg tablet 25 mg PO TID #270 tabs 05/24/24 08/02/24 08/01/24 Rx carvedilol 12.5 mg tablet 12.5 mg PO BID #60 tabs 08/08/24 Unknown Rx furosemide 40 mg tablet 40 mg PO DAILY@0800 #30 tabs 08/08/24 Unknown Rx sacubitril 24 mg-valsartan 26 mg 1 tab PO BID #60 tabs 08/08/24 Unknown Rx tablet (Entresto) bumetanide 1 mg tablet See Rx Instructions .Route 09/11/24 Unknown Rx .COMPLEX #60 tabs potassium chloride 20 mEq See Rx Instructions .Route 09/11/24 Unknown Rx tablet,extended release(part/cryst) .COMPLEX #60 tabs clopidogrel 75 mg tablet 75 mg PO QAM #90 tabs 10/16/24 Unknown Rx budesonide-formoterol HFA 80 2 puff inhalation BID #10.2 grams 11/14/24 Unknown Rx mcg-4.5 mcg/actuation aerosol inhaler (Symbicort) aspirin 81 mg tablet,delayed 81 mg PO QAM #90 tabs 12/05/24 Unknown Rx release Allergies Allergy/AdvReac Type Severity Reaction Status Date / Time No Known Allergies Allergy Verified 07/24/24 11:36 PFSH Acute PFSH: Medical History (Updated 04/30/25 @ 05:02 by Melquiades Adrian MD) Tobacco abuse counseling Tobacco use disorder, moderate, dependence COPD (chronic obstructive pulmonary disease) Heart failure with preserved ejection fraction Chest pain CHF (congestive heart failure) Atherosclerosis of [place] coronary artery without angina pectoris BJORN (iron deficiency anemia) Hepatitis C Congestive heart failure 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 Diabetic peripheral neuropathy associated with type 2 diabetes mellitus HTN (hypertension) Orthopedic hardware present Non-healing wound of left lower extremity Open tibial fracture Smoking Methamphetamine use Diabetes Surgical History History of surgery on lower extremity Family History Other Crohn's disease Diabetes Hyperlipidemia Hypertension Denies family history of CAD (coronary artery disease) Clotting disorder Dementia Psychiatric illness Chronic kidney disease (CKD) Anesthesia complication Bleeding disorder Lung disease Cancer Stroke Social History Smoking and tobacco/nicotine status: current some day tobacco/nicotine user cigarettes [ Other cigarette details: quit 2018. 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 Current gender identity: Male Special costa needs: No Agree to transfusion: Yes Vitals/I&O/Wt Last Vital Signs Temp 102.1 F H 04/30/25 03:32 Pulse 102 H 04/30/25 01:45 Resp 24 H 04/30/25 01:18 BP 152/86 04/30/25 01:45 Pulse Ox 99 04/30/25 03:00 O2 Del Method Room Air 04/30/25 01:18 Weight last 48 hrs Weight 78.925 kg Physical Exam Narrative: General: Appears uncomfortable HENMT: normoceophalic Respiratory: Normal respiratory effort, clear throughout, no use of accessory muscles Cardio: No JVD, regular rate, regular rhythm, S1 S2 normal, no murmurs, peripheral pulses 2+ throughout GI: Normal to inspection, nondistended Extremities: no cyanosis or edema Neuro: Alert, no focal motor deficits Data 04/29/25 23:20 04/29/25 23:20 A&P Assessment and plan 1. COVID-19: - He is not hypoxic, not making use of oxygen - Supportive care - Maintain on isolation precautions 2. Fall: - CT head unremarkable - Fall precautions - May benefit from PT OT when he is not encephalopathic 3. CAD (coronary artery disease): - Resume home medications 4. Acute exacerbation of congestive heart failure: - Resume home medications and utilize Bumex 2 mg twice daily for diuresis - Measure I's and O's every shift 5. Acute metabolic encephalopathy: - May be acute toxic-metabolic encephalopathy due to his acute illness - Urine drug screen also positive and may consider illicit substances contributing PDMP PDMP Reviewed: Not Reviewed Attestations Medical Necessity Statement*: Patient will likely require greater than 2 midnights in the hospital for management of his encephalopathy Coding Level of Care Code Acute Code for [facility] Diagnoses COVID-19 U07.1 Fall W19.XXXA CAD (coronary artery disease) I25.10 Acute exacerbation of congestive heart failure I50.9 Acute metabolic encephalopathy G93.41
--- NOTE | 2025-04-30 04:48 | ECG_ITS ---
[facility]25[facility]30 Pat Name: Leroy Olivo Department: Room: EDIP Gender: Male Can Slider: : 1965 Requested By: Sophie Beard Order Number: [id number] Reading MD: BELEN GONZALES Measurements Intervals [place] Rate: 103 P: 78 LA: 166 QRS: 108 QRSD: 93 T: 89 QT: 385 QTc: 506 Interpretive Statements SINUS TACHYCARDIA RIGHT AXIS DEVIATION [QRS AXIS > 100] POSSIBLE INFERIOR MYOCARDIAL INFARCTION , PROBABLY OLD [30 ms Q WAVE IN II/aVF] Compared to ECG 04/29/2025 23:58:20 Right-axis deviation now present Myocardial infarct finding now present T-wave abnormality no longer present Electronically Signed On 05-03-2025 18:53:36 SAFETY SEALER by BELEN GONZALES [email or web address]
--- NOTE | 2025-04-30 05:18 | PC.NURSE ---
Spoke with hospitalist, Dr. Adrian, regarding Mr. Olivo not being able to take PO meds this morning or drink from a straw. Dr. Adrian gave me a verbal order to hold all PO 0500 medications at this time.
[2025-04-30 05:50] LABS: Troponin 5 6HR 35.04 ng/L (0-15); Troponin 5 6HR Delta 6.04 ng/L (0-12)
[2025-04-30] MEDS: bumetanide 0.25 mg/mL SDV 10 mL 2 MG IVP (06:00)
[2025-04-30] MEDS: cefTRIAXone 1,000 mg SDV 1000 MG IVP (06:15)
--- NOTE | 2025-04-30 08:54 | PC.NURSE ---
ENOXAPARIN NOT ADMINISTERED BY ASSEMBLY LOADER AT 0500. THIS NURSE CONTACTED DR. ROBLES TO ADVISE WHETHER OR NOT MEDICATION NEEDED TO BE HELD OR GIVEN. PER VERBAL ORDER FROM DR. ROBLES TO ADMINISTER LATE MEDICATION.
--- NOTE | 2025-04-30 10:17 | PC.NURSE ---
PT COMPLAINING OF NEW ONSET LUQ PAIN. DR. ROBLES NOTIFIED, VERBAL ORDER FOR 15MG IV TORADOL GIVEN.
--- NOTE | 2025-04-30 12:19 | PC.NURSE ---
PT REFUSING BLOOD PRESSURE
--- NOTE | 2025-04-30 12:28 | PC.PHAR ---
Patient would not wake up to verify Medications. I spoke to [facility] and they verified Patient has not filled and prescriptions since August 2024, and 1 Symbicort in October 2024 . I spoke to next of kin and She states that he takes his medication and he has some at home. When I told her he hadn't filled any prescriptions since August ,she stated that she was going to fill them today. She had forgot to have them filled last week .
--- NOTE | 2025-04-30 14:28 | USCV_ITS ---
Leroy Olivo Age: 59 Gender: M : 1965 Exam Date: 04/30/2025 14:59 Ordering Phys: Kamini Ricks NP Technologist: Exam Location: [facility] [place] Indication: cp sob BP: 132 / 68 HR: Rhythm: Sinus Technical Quality: Adequate MEASUREMENTS (Male / Female) Normal Values 2D ECHO LV Diastolic Diameter PLAX 4.8 cm 4.2 - 5.9 / 3.9 - 5.3 cm IVS Diastolic Thickness 1.4 cm 0.6 - 1.0 / 0.6 - 0.9 cm IVS Systolic Thickness 1.8 cm LVPW Diastolic Thickness 1.3 cm 0.6 - 1.0 / 0.6 - 0.9 cm LVPW Systolic Thickness 1.5 cm LVOT Diameter 2.1 cm LV Ejection Fraction 2D Teich 41.9 % LV Ejection Fraction MOD 4C 49.7 % LV Ejection Fraction MOD 2C 25.8 % LV Ejection Fraction 2C AL 25.1 % LA Diameter 4.0 cm RA Systolic Volume 4C AL 66.3 ml RA Systolic Volume 4C MOD 62.9 ml Aorta at Sinotubular Diameter 2.8 cm IVC Diameter 1.6 cm M-MODE LA Ao Ratio MM 1.4 AV Cusp Separation MM 1.9 cm FINDINGS Left Ventricle Moderately increased left ventricular cavity size. Moderately decreased left ventricular systolic function. Left ventricular ejection fraction is estimated at 40 %. Global left ventricular hypokinesis. Right Ventricle Right Atrium Left Atrium Moderately increased left atrial size. IA Septum Mitral Valve Aortic Valve Tricuspid Valve Pulmonic Valve Pericardium Aorta IVC CONCLUSIONS Limited Echocardiogram. Moderately increased left ventricular cavity size. Moderately decreased left ventricular systolic function. Left ventricular ejection fraction is estimated at 40 %. Global left ventricular hypokinesis. There is no pericardial effusion. Jeff Ramey MD (Electronically Signed) Final Date: 01 May 2025 14:12 S
[2025-05-01] VITALS (9 sets, daily range): BP systolic 96–146; BP diastolic 54–80; PULSE 76–108; RESP 16–20; TEMP 36.6–37.4; O2SAT 91–96
[2025-05-01] MEDS: insulin glargine 100 units/1 mL 28 UNIT SUBCUT ×2 (04:18→17:43)
[2025-05-01] MEDS: cefTRIAXone 1,000 mg SDV 1000 MG IVP (04:19)
[2025-05-01] MEDS: DAPAGLIFLOZIN 10 MG TABLET PO (04:19)
--- NOTE | 2025-05-01 09:49 | PC.CHAP ---
Pastoral Care Encounter/Spiritual Assessment Type of Contact [] Declined carpenters visit [] Patient/Family/Request visit [] Outpatient visit [] Follow-up visit [] Physician referral [] Code/Alert [] Routine visit [] Staff referral [] Actively dying [] Patient sleeping [] Family support [] [] Out of room [] Palliative care [] [] Receiving care in room [] Pre-surgical visit [] Trauma [] Long length of stay [] ICU visit [x] Other:Contact precautions. No visit. Relational/Emotional Strength [] Patient feels connected with others/family/visitors/staff [] Distress [] Loneliness/isolation [] Abandonment Spirituality of Patient [] Person of Moon [] Attends Scientology of their Moon [] Believes in Prayer [] Reads Bible or Baptist materials [] There are Spiritual issues to be addressed Water Registrar Interventions [] Prayer [] Active listening [] Non-anxious presence [] Spiritual/emotional support [] Crisis/trauma care [] Spiritual counseling [] Bereavement support [] Provided bereavement packet [] Provided Bible/devotional materials [] Provided toy/stuffed animal, coloring book to patient or family member [] Provided Communion [] Anointing/[place] [] Salvation [] Completed spiritual assessment [] Other: Impact on Illness or Injury [] Angry [] Fearful [] Anxious [] Often cries [] Exhaustion [] Unable to work [] Unable to attend muslim [] Unable to walk/stand [] Unable to read [] Unable to drive [] Unable to eat/drink [] Unable to sleep [] Unable to be with family [] Patient intubated [] Other: Summary Time spent with patient
--- NOTE | 2025-05-01 11:39 | P.PN_ITS ---
Subjective 2 Subjective: Patient is a pleasant 59-year-old male seen and examined at bedside on hospital rounds this morning. Patient laying in bed stating that he is breathing much better, still feels weak with COVID but is agreeable to continued inpatient interventions today. Patient is awake and much more interactive today. Given patient's COVID symptoms are greater than a week and a half, will defer IV antiviral. Will continue IV antibiotic therapy for pneumonia and transition to oral with plans to discharge tomorrow if able. Vital signs are stable: Blood pressure 104/66, pulse 86, respiration 17, temperature 99.4 ?F, O2 saturation 93% on room air. Pending labs. Vitals/I&O/Wt Last Vital Signs Temp 99.4 F 05/01/25 16:00 Pulse 86 05/01/25 16:00 Resp 17 05/01/25 16:00 BP 104/66 05/01/25 16:00 Pulse Ox 93 05/01/25 16:00 O2 Del Method Room Air 05/01/25 16:00 05/01/25 05/01/25 05/01/25 06:59 14:59 22:59 Intake Total 1670 / 3235 960 / 960 360 / 1320 Output Total 200 / 200 Balance 1670 / 3235 760 / 760 360 / 1120 Weight last 48 hrs Weight 78.925 kg Physical Exam 2 Narrative: General: Awake and orientated x 3 HENMT: normoceophalic Respiratory: Normal respiratory effort, clear throughout, no use of accessory muscles Cardio: No JVD, regular rate, regular rhythm, S1 S2 normal, no murmurs, peripheral pulses 2+ throughout GI: Normal to inspection, nondistended Extremities: no cyanosis or edema Neuro: Alert, no focal motor deficits Data 04/29/25 23:20 04/29/25 23:20 A&P Assessment and plan 1. COVID-19: - He is not hypoxic, not making use of oxygen - Supportive care - Maintain on isolation precautions 2. Fall: - CT head unremarkable - Fall precautions - May benefit from PT OT when he is not encephalopathic 3. CAD (coronary artery disease): - Resume home medications 4. Acute exacerbation of congestive heart failure: - Resume home medications and utilize Bumex 2 mg twice daily for diuresis - Measure I's and O's every shift 5. Acute metabolic encephalopathy: - May be acute toxic-metabolic encephalopathy due to his acute illness, now resolved - Urine drug screen also positive and may consider illicit substances contributing 6. Pneumonia due to COVID-19 virus: - Continue supportive care - Antibiotic therapy with Rocephin and Zithromax PDMP PDMP Reviewed: Not Reviewed Attestations 2 Medical Necessity Statement*: Continued inpatient interventions with IV antibiotics, respiratory support, and complex medical management. Coding Level of Care Code Acute Code for [facility] Diagnoses COVID-19 U07.1 Fall W19.XXXA CAD (coronary artery disease) I25.10 Acute exacerbation of congestive heart failure I50.9 Acute metabolic encephalopathy G93.41 Pneumonia due to COVID-19 virus U07.1; J12.82
[2025-05-02] VITALS: BP 109/67; PULSE 84; RESP 18; TEMP 36.7; O2SAT 94
[2025-05-02 03:45] LABS: Hematocrit 44.7 % (37-53); Hemoglobin 15.20 g/dL (11.27-16.99); Mean Corpuscular HGB Conc 34.0 g/dL (30-55); Mean Corpuscular Hemoglobin 31.3 pg (27-33); Mean Corpuscular Volume 92.2 fl (82-101); Nucleated Red Blood Cells % 0 %; Platelet Count 194 10^3/cmm (157-399); Red Blood Count 4.85 10^6/uL (3.85-5.65); White Blood Count 7.32 10^3/uL (3.29-11.43)
[2025-05-02 04:00] VITALS: BP 121/69; PULSE 76; RESP 18; TEMP 36.6; O2SAT 92
[2025-05-02 04:06] LABS: Alanine Aminotransferase 16 U/L (0-41); Albumin Level 3.3 g/dL (3.5-5.2); Alkaline Phosphatase 85 U/L (40-130); Anion Gap 15.2 (5-19); Aspartate Amino Transferase 25 U/L (0-40); Blood Urea Nitrogen 23 mg/dL (8-23); Calcium 8.5 mg/dL (8.5-10.5); Carbon Dioxide 24 mmol/L (22-29); Chloride 104 mmol/L (98-107); Globulin 3.7 g/dL (1.3-4.6); Glucose 113 mg/dL (65-115); Osmolality Calculated 294 mOsm/kg (285-295); Potassium 3.2 mmol/L (3.5-5.1); Sodium 140 mmol/L (136-145); Total Protein 7.0 g/dL (6.6-8.7)
[2025-05-02 04:08] LABS: Magnesium 2.1 mg/dL (1.7-2.3)
[2025-05-02] MEDS: DAPAGLIFLOZIN 10 MG TABLET PO (05:00)
[2025-05-02] MEDS: cefTRIAXone 1,000 mg SDV 1000 MG IVP (05:01)
[2025-05-02] MEDS: insulin glargine 100 units/1 mL 28 UNIT SUBCUT (06:53)
[2025-05-02 07:44] VITALS: BP 90/64; PULSE 69; RESP 17; TEMP 36.7; O2SAT 97
[2025-05-02 08:56] VITALS: PULSE 68; RESP 16; O2SAT 97
--- NOTE | 2025-05-02 09:21 | P.DS_ITS ---
Discharge Providers Date of Admission: 04/30/25 04:05 Date of Discharge: May 02, 2025 Attending Provider at Admission: Melquiades Adrian MD Attending Provider at Discharge: Kamini Ricks NP Primary Care Provider: Dallas Kwan MD Diagnoses at Discharge Discharge Diagnosis 1. COVID-19: 2. Fall: 3. CAD (coronary artery disease): 4. Acute on chronic combined systolic and diastolic congestive heart failure: 5. Acute metabolic encephalopathy: 6. Pneumonia due to COVID-19 virus: Reason for Visit Reason for Visit: Progressive Heart Failure Brief History: Admission: Leroy Olivo is a 59 year old male with history significant for COPD, HFrEF, CAD with stents, and methamphetamine abuse as well as medical nonadherence, who presents with complaints of shortness of breath. Due to the patient's clinical condition, history is gathered from family present at the bedside. I am told that the patient has been ill for the past 1.5 weeks with complaints of shortness of breath, chest pain, and cough. He has been reluctant to seek medical attention for his complaints. Since his onset of complaints, he has been taking [id number] medications and home remedies without improvement of his condition. Family does mention that the patient will occasionally take his prescribed occasions and is inconsistent. Today, he is homeless continued and he decided to request family bring him to the hospital for further evaluation and management. Of note, the patient does live alone. His current behavior can be seen when he is acutely ill per the family. His current condition is that of confusion and agitation. It should also be noted the patient had an unwitnessed fall in the ED. There was discussion on discharging the patient home for after his unsteadiness with walking, fall, there is concern that he would be unable to care for himself at home and thus hospitalist is requested to admit the patient. Hospital Course Hospital Course 1. COVID-19: - He is not hypoxic, not making use of oxygen - Supportive care - Maintain on isolation precautions 2. Fall: - CT head unremarkable - Fall precautions - May benefit from PT OT when he is not encephalopathic 3. CAD (coronary artery disease): - Resume home medications 4. Acute exacerbation of congestive heart failure: - Resume home medications and utilize Bumex 2 mg twice daily for diuresis - Measure I's and O's every shift 5. Acute metabolic encephalopathy: - May be acute toxic-metabolic encephalopathy due to his acute illness, now resolved - Urine drug screen also positive and may consider illicit substances contributing 6. Pneumonia due to COVID-19 virus: - Continue supportive care - Antibiotic therapy with Rocephin and Zithromax Discharge: Discharge is in stable condition with no chest pain or shortness of breath at time of discharge, room air saturation greater than 97%. Transition to oral antibiotics at discharge with Zithromax and cefdinir, maximize treatment for CHF adding Farxiga and spironolactone at discharge. Patient is advised to follow-up with primary care provider in 1 to 2 days and cardiology at this next available appointment. All questions and concerns addressed to the patient prior to discharge. Physical Exam Narrative: General: Awake and orientated x 3 HENMT: normoceophalic Respiratory: Normal respiratory effort, clear throughout, no use of accessory muscles Cardio: No JVD, regular rate, regular rhythm, S1 S2 normal, no murmurs, peripheral pulses 2+ throughout GI: Normal to inspection, nondistended Extremities: no cyanosis or edema Neuro: Alert, no focal motor deficits Discharge Data Studies Completed and Pending Completed Studies During Hospitalization Category Date Time Status CT head wo con* [id number] Stat Cat Scan 04/30/25 01:37 Completed XR chest 1V portable [id number] Urgent Exams 04/29/25 22:48 Completed CV. echo limited [id number] Routine Ultrasound 04/30/25 14:28 Completed Pending at discharge Category Date Time Status Sputum Culture Routine Lab 04/30/25 05:06 Uncollected Radiology Impressions Chest X-Ray 04/29/25 22:48 IMPRESSION: Hazy left retrocardiac/basilar opacities. Differential includes infection or aspiration. Head CT 04/30/25 01:37 IMPRESSION: 1. No acute intracranial CT findings. 2. Sinusitis. Laboratory Results WBC 7.32 10^3/uL (3.29-11.43) 05/02/25 03:04 RBC 4.85 10^6/uL (3.85-5.65) 05/02/25 03:04 Hgb 15.20 g/dL (11.27-16.99) 05/02/25 03:04 Hct 44.7 % (37-53) 05/02/25 03:04 MCV 92.2 fl (82-101) 05/02/25 03:04 MCH 31.3 pg (27-33) 05/02/25 03:04 MCHC 34.0 g/dL (30-55) 05/02/25 03:04 RDW 13.1 % (12.1-15.1) 05/02/25 03:04 Plt Count 194 10^3/cmm (157-399) 05/02/25 03:04 MPV 11.4 fL (7.4-10.4) H 05/02/25 03:04 Neut % (Auto) 74.7 % 05/02/25 03:04 Lymph % (Auto) 12.3 % 05/02/25 03:04 [place] % (Auto) 11.7 % 05/02/25 03:04 Eos % (Auto) 0.7 % 05/02/25 03:04 Baso % (Auto) 0.3 % 05/02/25 03:04 Neut # (Auto) 5.47 10^3/uL (1.8-7.7) 05/02/25 03:04 Lymph # (Auto) 0.9 10^3/uL (0.8-4.8) 05/02/25 03:04 [place] # (Auto) 0.9 10^3/uL (0.2-0.9) 05/02/25 03:04 Eos # (Auto) 0.1 10^3/uL (0.0-0.8) 05/02/25 03:04 Baso # (Auto) 0.0 10^3/uL (0.0-0.1) 05/02/25 03:04 Nucleated RBC % (auto) 0 % 05/02/25 03:04 Nucleated RBCs # 0.0 /100WBC 05/02/25 03:04 Sodium 140 mmol/L (136-145) 05/02/25 03:04 Potassium 3.2 mmol/L (3.5-5.1) L 05/02/25 03:04 Chloride 104 mmol/L (98-107) 05/02/25 03:04 Carbon Dioxide 24 mmol/L (22-29) 05/02/25 03:04 Anion Gap 15.2 (5-19) 05/02/25 03:04 BUN 23 mg/dL (8-23) 05/02/25 03:04 Creatinine 1.3 mg/dL (0.7-1.2) H 05/02/25 03:04 GFR Calculation 67.9 mL/min (90-130) L 05/02/25 03:04 Glucose 113 mg/dL (65-115) 05/02/25 03:04 POC Glucose 190 mg/dL (70-110) H 05/02/25 06:52 Calculated Osmolality 294 mOsm/kg (285-295) 05/02/25 03:04 Calcium 8.5 mg/dL (8.5-10.5) 05/02/25 03:04 Magnesium 2.1 mg/dL (1.7-2.3) 05/02/25 03:04 Total Bilirubin 0.3 mg/dL (0.15-1.2) 05/02/25 03:04 AST 25 U/L (0-40) 05/02/25 03:04 ALT 16 U/L (0-41) 05/02/25 03:04 Alkaline Phosphatase 85 U/L (40-130) 05/02/25 03:04 Troponin T Baseline 29 ng/L (0-15) H 04/29/25 23:20 Troponin T 60 Minute 35.85 ng/L (0-15) H 04/30/25 00:55 Delta Troponin T 6.85 ABS# (0-10) 04/30/25 00:55 Troponin T Hi Sens 6Hr 35.04 ng/L (0-15) H 04/30/25 05:17 Troponin T Hi Sens 6Hr Delta 6.04 ng/L (0-12) 04/30/25 05:17 NT-Pro-B Natriuret Pep 3000 pg/mL (0-125) H 04/29/25 23:20 Total Protein 7.0 g/dL (6.6-8.7) 05/02/25 03:04 Albumin 3.3 g/dL (3.5-5.2) L 05/02/25 03:04 Globulin 3.7 g/dL (1.3-4.6) 05/02/25 03:04 Urine Opiates Screen Negative ng/mL (Negative) 04/30/25 00:50 Ur Barbiturates Screen Negative ng/mL (Negative) 04/30/25 00:50 Ur Phencyclidine Scrn Negative ng/mL (Negative) 04/30/25 00:50 Ur Amphetamines Screen Positive ng/mL (Negative) H 04/30/25 00:50 U Benzodiazepines Scrn Negative ng/mL (Negative) 04/30/25 00:50 Urine Cocaine Screen Negative ng/mL (Negative) 04/30/25 00:50 U Marijuana (THC) Screen Positive ng/mL (Negative) H 04/30/25 00:50 Influenza A (PCR) Negative (Negative) 04/30/25 00:02 Influenza Type B (PCR) Negative (Negative) 04/30/25 00:02 RSV (PCR) Negative (Negative) 04/30/25 00:02 SARS-CoV-2 (PCR) Positive (Negative) A 04/30/25 00:02 Vitals Last Vital Signs Temp 98.0 F 05/02/25 07:44 Pulse 68 05/02/25 08:56 Resp 16 05/02/25 08:56 BP 90/64 05/02/25 07:44 Pulse Ox 97 05/02/25 08:56 O2 Del Method Room Air 05/02/25 08:56 Discharge Plan Discharge Patient Disposition: Home Condition: Stable Prescriptions: New spironolactone 25 mg Tablet 25 mg PO DAILY 90 Days Qty: 90 0RF dapagliflozin propanediol 10 mg Tablet 10 mg PO DAILY 90 Days Qty: 90 0RF cefdinir 300 mg capsule 300 mg PO BID 5 Days Qty: 10 0RF azithromycin [Zithromax TRI-SUSIE] 500 mg tablet See Rx Instructions .ROUTE .COMPLEX Qty: 3 0RF Rx Instructions: For 250 mg dose pack: take 500 mg today (day 1), then 250 mg for 4 days (days 2-5) Continued hydralazine 25 mg tablet 25 mg PO TID Qty: 270 2RF (DME) OneTouch Ultra Test Strip See Rx Instructions .ROUTE .MEDSUPPLY Qty: 100 6RF Rx Instructions: Measure 4 times per day (DME) lancets [OneTouch UltraSoft Lancets] Misc See Rx Instructions .ROUTE .MEDSUPPLY Qty: 100 5RF Rx Instructions: measure glucose 4 times per day (DME) blood-glucose meter [OneTouch Ultra2 Meter] Kit See Rx Instructions .Route Qty: 1 0RF Rx Instructions: use glucometer 4 times daily (DME) pen needle, diabetic [BD Ultra-Fine Mini Pen Needle] 31 gauge x 3/16 needle See Rx Instructions .Route Qty: 100 7RF Rx Instructions: 4 times daily with insulin carvedilol 12.5 mg tablet 12.5 mg PO BID Qty: 180 1RF insulin glargine [Lantus Solostar U-100 Insulin] 100 unit/mL (3 mL) insulin pen 28 unit SUBCUT BID 60 Days Qty: 33.6 3RF bumetanide 1 mg tablet See Rx Instructions .ROUTE .COMPLEX Qty: 60 6RF Dose Instruction: TAKE 1 TABLET BY MOUTH TWICE DAILY Rx Instructions: TAKE 1 TABLET BY MOUTH TWICE DAILY potassium chloride 20 mEq tablet,ER particles/crystals See Rx Instructions .ROUTE .COMPLEX Qty: 60 6RF Dose Instruction: TAKE 1 TABLET BY MOUTH TWICE DAILY WITH BUMETANIDE Rx Instructions: TAKE 1 TABLET BY MOUTH TWICE DAILY WITH BUMETANIDE clopidogrel 75 mg tablet 75 mg PO QAM Qty: 90 2RF budesonide-formoterol [Symbicort] 80-4.5 mcg/actuation HFA aerosol inhaler 2 puff inhalation BID Qty: 10.2 2RF aspirin 81 mg tablet,delayed release (DR/EC) 81 mg PO QAM Qty: 90 3RF furosemide 40 mg tablet 40 mg PO DAILY@0800 Qty: 30 0RF sacubitril-valsartan [Entresto] 24-26 mg Tablet 1 tab PO BID Qty: 60 0RF Discharge Order = DC NOW: Discharge Order (Routine); Ordered 05/02/25 Ordered By: Kamini Ricks Referrals: Dallas Kwan MD [Primary Care Provider, [facility]] - 05/28/25 9:30 am Discharge Diet: Cardiac Discharge Activity: Resume usual activity Patient Instructions: Spironolactone (By mouth), Azithromycin (By mouth), Cefdinir (By mouth), Dapagliflozin (By mouth), Heart Failure (DC), How to Recover from COVID-19 at Home (ED), Opioid Safety, Patient Portal & Maria Esther Instructions Discharge Attestations Time Spent in Discharge Care*: greater than 30 min Quality Metrics Clinical Quality Measures [ No reported AMI, CVA or VTE this stay] Coding Level of Care Code 02252 Diagnoses COVID-19 U07.1 Fall W19.XXXA Encounter type: initial encounter CAD (coronary artery disease) I25.10 Associated angina: unspecified whether angina present Coronary Disease-Associated Artery/Lesion type: unspecified vessel or lesion type [place] vs. transplanted heart: [place] heart Acute on chronic combined systolic and diastolic congestive heart failure I50.43 Heart failure type: combined systolic and diastolic Acute metabolic encephalopathy G93.41 Pneumonia due to COVID-19 virus U07.1; J12.82
== END 2025-05-02 11:55 | disposition home or self-care (01) | DRG 137 ==
LOC: ER 04-30 02:06 → ER IP 04-30 04:58 → MEDSURG 04-30 12:02
PROVIDERS: Admitting Provider Family Medicine; Emergency Provider Physician Assistant; PCP Family Medicine; Visit Provider Registered Nurse
DX: U07.1 COVID-19 (principal); J12.82 Pneumonia due to coronavirus disease 2019; Z91.81 History of falling; I25.10 Atherosclerotic heart disease of native coronary artery without angina pectoris; I11.0 Hypertensive heart disease with heart failure; I50.43 Acute on chronic combined systolic (congestive) and diastolic (congestive) heart failure; G93.41 Metabolic encephalopathy; Z91.148 Patient's other noncompliance with medication regimen for other reason; F17.290 Nicotine dependence, other tobacco product, uncomplicated; E11.9 Type 2 diabetes mellitus without complications; J44.0 Chronic obstructive pulmonary disease with (acute) lower respiratory infection; Z95.5 Presence of coronary angioplasty implant and graft; Z79.82 Long term (current) use of aspirin; Z79.4 Long term (current) use of insulin; Z79.02 Long term (current) use of antithrombotics/antiplatelets
CPT/HCPCS: 36415; 36416; 70450; 71045; 80053; 80306; 82962; 83735; 83880; 84484; 85025; 87637; 93005; 93308; 94640; 96372; 96374; 96375; 99285; J0131; J0456; J0696; J1650; J1815; J1885; J1938; J2060; J3490; J7050; J7613; J9999